=== PATIENT | female | born 1945 | race Caucasian/White ===

== ENCOUNTER 2018-05-11 05:53 | Outpatient (CLI) | payer MEDICARE ==
[~2018-05-11] VITALS: Ht 172.7 cm; Wt 76.7 kg
[~2018-05-11 05:53] MED LIST: ASP81CT PO; SIMVASTATIN
[2018-05-11] MEDS ORDERED: ATOR40TA70 PO (15:05)
[2018-05-11] MEDS ORDERED: VITA100T4 PO (15:17)
[2018-05-11] MEDS ORDERED: CALC600T12 PO (15:17)
[2018-05-11] MEDS ORDERED: BISA-65 PO (15:18)
[2018-05-11] MEDS ORDERED: MULT-1021 PO (15:18)
== END 2018-05-11 15:33 | disposition home or self-care (01) ==
LOC: PREOP 05:53
PROVIDERS: ATTEND Urology
DX: Z01.818 Encounter for other preprocedural examination (principal)

== ENCOUNTER 2018-05-15 06:46 | Day surgery (SDC) | payer MEDICARE ==
[~2018-05-15] VITALS: Ht 172.7 cm; Wt 76.7 kg
[~2018-05-15 06:46] MED LIST changes: +ATOR40TA70 PO; +BISA-65 PO; +CALC600T12 PO; +MULT-1021 PO; +VITA100T4 PO
--- OUTSIDE RECORDS SUMMARY | 2018-05-15 06:49 | XMS REPORT | Continuity of Care Document ---
Author Author [facility] of [facility] Address Unknown Phone Unavailable Allergies Active Description Code Type Severity Reaction Onset Reported/Identified Relationship to Patient Clinical Status Yes sulfADIAZINE Drug N/A Nausea Yes SULFA (SULFONAMIDE ANTIBIOTICS) SULFA (SULFONAMIDE A UNKNOWN Yes Sulfa (Sulfonamide Antibiotics) [id number] Drug Allergy Unknown N/A 2011 Medications There is no data. Problems Date Dx Coded Attending Type Code Diagnosis Diagnosed By 05/13/2014 V04.81 FLU SHOT 11/28/2014 Mj Collier Final 272.4 Other and Unspecified Hyperlipidemia 11/28/2014 Mj Collier Final 305.1 Tobacco Use Disorder 11/28/2014 Mj Collier Final 562.10 Diverticulosis of Colon (Without Mention of Hemorrhage) 11/28/2014 Mj Collier Final 569.0 Anal and Rectal Polyp 11/28/2014 Mj Collier Final V76.51 Screening for Malignant Neoplasms of Colon Procedures Code [place] [address] Colonoscopy, flexible; with biopsy, HERB Aceves 11/28/2014 Results Test Result Range VIT B-12 - 09/07/16 11:40 Vitamin B12 896.00 pg/mL 213.00-816.00 Encounters ACCT No. Visit Date/Time Discharge Status Pt. Type Provider Facility Loc./Unit Complaint [id number] 05/21/2014 16:10:00 05/21/2014 23:59:59 CLS Outpatient [id number] 05/11/2018 05:53:00 05/11/2018 15:33:00 DIS Outpatient TEODORO SILVEIRA MD Via [facility] PREOP STRESS URINARY INCONTINENCE [id number] 05/15/2018 06:46:00 ACT Outpatient TEODORO SILVEIRA MD Via [facility] STRESS URINARY INCONTINENCE [id number] 12/26/2017 12:57:02 ACT Unknown [id number] 09/07/2016 14:13:00 09/07/2016 23:59:00 DIS Outpatient LOZAKRISTIN RAMEY [id number] 11/28/2014 08:37:00 11/28/2014 23:59:00 DIS Outpatient Mj Collier Guarantor/person MONICA MUÑOZ [facility] 01/14/2018 04:32:34 ACT Document Registration
--- NOTE | 2018-05-15 06:57 | Progress Note-Pre Operative ---
Pre-Operative Progress Note H&P Reviewed The H&P was reviewed, patient examined and no changes noted. Date Seen by Provider: May 15, 2018 Time Seen by Provider: 06:57 Date H&P Reviewed: May 15, 2018 Time H&P Reviewed: 06:57 Pre-Operative Diagnosis: CYSTOCELE AND INCONTINENCE WITH ISD TEODORO SILVEIRA MD May 15, 2018 6:57 am
[2018-05-15 07:10] VITALS: BP 135/75
[2018-05-15] MEDS ORDERED: LACTATED RINGERS 1,000 ML IV PRN (07:29)
[2018-05-15] MEDS ORDERED: cefTRIAXone FOR IV USE 1,000 MG in NS (IVPB) 50 ML IV ONE (07:30)
[2018-05-15] MEDS ORDERED: CATHETER FLUSH 10 ML SYR IV PRN (07:45)
[2018-05-15] MEDS ORDERED: FAMOTIDINE 20MG/2ML IV (PEPCID) IV ONE (08:15)
[2018-05-15] MEDS ORDERED: ONDANSETRON 4 MG/2 ML (SDV) Z0FRAN IV ONE (08:15)
[2018-05-15] MEDS ORDERED: ONDANSETRON 4 MG/2 ML (SDV) Z0FRAN ONE (08:25)
[2018-05-15] MEDS ORDERED: SEVOFLURANE (ULTANE) 15 ML INHAL SOLN ONE (08:25)
[2018-05-15] MEDS ORDERED: proPOfol 200 MG/20 ML (DIPRIVAN) VIAL IV ONE (08:25)
[2018-05-15] MEDS ORDERED: LIDOCAINE PF 2% 5 ML (XYLOCAINE) VIAL ONE (08:25)
[2018-05-15] MEDS ORDERED: fentaNYL INJECTION 100 MCG/2 ML AMP ONE (08:26)
== END 2018-05-15 11:40 | disposition home or self-care (01) ==
LOC: SDC 06:46 → EDSTATUS 09:00 → SDC 11:40
PROVIDERS: ATTEND Urology
DX: N81.10 Cystocele, unspecified (principal); R32 Unspecified urinary incontinence; N36.42 Intrinsic sphincter deficiency (ISD); Z53.8 Procedure and treatment not carried out for other reasons
CPT/HCPCS: 87081

== ENCOUNTER 2018-05-29 06:40 | Day surgery (SDC) | payer MEDICARE ==
[~2018-05-29] VITALS: Ht 172.7 cm; Wt 76.7 kg
[2018-05-29] MEDS ORDERED: cefTRIAXone FOR IV USE 1,000 MG in NS (IVPB) 50 ML IV ONE (06:45)
--- OUTSIDE RECORDS SUMMARY | 2018-05-29 06:45 | XMS REPORT | Continuity of Care Document ---
Author Author [facility] of [facility] of [facility] Address Unknown Phone Unavailable Allergies Active Description Code Type Severity Reaction Onset Reported/Identified Relationship to Patient Clinical Status Yes sulfADIAZINE Drug N/A Nausea Yes SULFA (SULFONAMIDE ANTIBIOTICS) SULFA (SULFONAMIDE A UNKNOWN Yes Sulfa (Sulfonamide Antibiotics) [id number] Drug Allergy Unknown N/A 2011 Medications There [...] V76.51 Screening for Malignant Neoplasms of Colon 05/15/2018 TEODORO SILVEIRA MD Ot Z01.818 ENCOUNTER FOR OTHER PREPROCEDURAL EXAMIN 05/15/2018 TEODORO SILVEIRA MD, Ot N36.42 INTRINSIC SPHINCTER DEFICIENCY (ISD) 05/15/2018 TEODORO SILVEIRA MD, Ot N81.10 CYSTOCELE, UNSPECIFIED 05/15/2018 TEODORO SILVEIRA MD, Ot R32 UNSPECIFIED URINARY INCONTINENCE 05/15/2018 TEODORO SILVEIRA MD, Ot Z53.8 PROCEDURE AND TREATMENT NOT CARRIED OUT 05/17/2018 TEODORO SILVEIRA MD, Ot N36.42 INTRINSIC SPHINCTER DEFICIENCY (ISD) 05/17/2018 TEODORO SILVEIRA MD, Ot N81.10 CYSTOCELE, UNSPECIFIED 05/17/2018 TEODORO SILVEIRA MD Ot R32 UNSPECIFIED URINARY INCONTINENCE 05/17/2018 TEODORO SILVEIRA MD, Ot Z53.8 PROCEDURE AND TREATMENT NOT CARRIED OUT 05/17/2018 TEODORO SILVEIRA MD, Ot N36.42 INTRINSIC SPHINCTER DEFICIENCY (ISD) 05/17/2018 TEODORO SILVEIRA MD Ot N81.10 CYSTOCELE, UNSPECIFIED 05/17/2018 TEODORO SILVEIRA MD Ot R32 UNSPECIFIED URINARY INCONTINENCE 05/17/2018 TEODORO SILVEIRA MD Ot Z53.8 PROCEDURE AND TREATMENT NOT CARRIED OUT 05/21/2018 TEODORO SILVEIRA MD, Ot N36.42 INTRINSIC SPHINCTER DEFICIENCY (ISD) 05/21/2018 TEODORO SILVEIRA MD, Ot N81.10 CYSTOCELE, UNSPECIFIED 05/21/2018 TEODROO SILVEIRA MD Ot R32 UNSPECIFIED URINARY INCONTINENCE 05/21/2018 TEODORO SILVEIRA MD, Ot Z53.8 PROCEDURE AND TREATMENT NOT CARRIED OUT Procedures Code Description [place] [address] Colonoscopy, flexible; with biopsy, HERB Aceves 11/28/2014 Results Test Result Range VIT B-12 - 09/07/16 11:40 Vitamin B12 896.00 pg/mL 213.00-816.00 Methicillin resistant Staphylococcus aureus (MRSA) screening culture - 07:04 Methicillin resistant Staphylococcus aureus (MRSA) screening culture NEG NRG Encounters ACCT No. Visit Date/Time Discharge Status Pt. Type Provider Facility Loc./Unit Complaint [id number] 05/21/2014 16:10:00 05/21/2014 23:59:59 CLS Outpatient [id number] 05/15/2018 06:46:00 05/15/2018 11:40:00 DIS Outpatient TEODORO SILVEIRA MD Via [facility] STRESS URINARY INCONTINENCE [id number] 05/11/2018 05:53:00 05/11/2018 15:33:00 DIS Outpatient TEODORO SILVEIRA MD Via [facility] PREOP STRESS URINARY INCONTINENCE [id number] 05/29/2018 06:40:00 ACT Outpatient TEODORO SILVEIRA MD Via [facility] STRESS URINARY INCONTINENCE [id number] 12/26/2017 12:57:02 ACT Unknown [id number] 05/19/2018 08:24:26 05/19/2018 23:59:59 CLS Outpatient [id number] 09/07/2016 14:13:00 09/07/2016 23:59:00 DIS Outpatient KRISTIN LOZA [id number] 11/28/2014 08:37:00 11/28/2014 23:59:00 DIS Outpatient Mj Collier Guarantor/person MONICA MUÑOZ [facility] 01/14/2018 04:32:34 ACT Document Registration
--- NOTE | 2018-05-29 06:58 | Progress Note-Pre Operative ---
Pre-Operative Progress Note H&P Reviewed The H&P was reviewed, patient examined and no changes noted. Date Seen by Provider: May 29, 2018 Time Seen by Provider: 06:57 Date H&P Reviewed: May 29, 2018 Time H&P Reviewed: 06:57 Pre-Operative Diagnosis: cystocele, mixed incontinence, isd, and oab TEODORO SILVEIRA MD May 29, 2018 6:57 am
--- NOTE | 2018-05-29 06:59 | Progress Note-Post Operative ---
Post-Operative Progess Note Surgeon (s)/[employer] (s) Surgeon TEODORO SILVEIRA MD [employer]: NONE Pre-Operative Diagnosis CYSTOCELE, MIXED INCONTINENCE, ISD, AND OAB Post-Operative Diagnosis SAME AND ENTEROCELE Procedure & Operative Findings Date of Procedure 05/29/18 Procedure Performed/Findings ANTERIOR REPAIR, ENTEROCELE REPAIR, PVS, AND CYSTOSCOPY Anesthesia Type GENERAL Estimated Blood Loss Estimated blood loss (mL): NEGLIGIBLE Specimens/Packing Specimens Removed NONE TO PATHOLOGY Packing: ESTRACE VAGINAL PACK TEODORO SILVEIRA MD May 29, 2018 6:59 am
[2018-05-29 07:00] VITALS: BP 147/76
[2018-05-29] MEDS ORDERED: DEXAMETHASONE 10 MG/ML (DECADRON) 1 ML VIAL ONE (07:00)
[2018-05-29] MEDS ORDERED: ONDANSETRON 4 MG/2 ML (SDV) Z0FRAN ONE (07:00)
[2018-05-29] MEDS ORDERED: LIDOCAINE PF 2% 5 ML (XYLOCAINE) VIAL ONE (07:00)
[2018-05-29] MEDS ORDERED: fentaNYL INJECTION 100 MCG/2 ML AMP ONE (07:00)
[2018-05-29] MEDS ORDERED: HYDROcodone/APAP 10 MG/325 MG (LORTAB) TAB PO PRN (07:00)
[2018-05-29] MEDS ORDERED: BISACODYL 5 MG (DULCOLAX) TABLET PO PRN (07:00)
[2018-05-29] MEDS ORDERED: SEVOFLURANE (ULTANE) 15 ML INHAL SOLN ONE (07:00)
[2018-05-29] MEDS ORDERED: proPOfol 200 MG/20 ML (DIPRIVAN) VIAL IV ONE ×2 (07:00→07:57)
[2018-05-29] MEDS: LACTATED RINGERS 1,000 ML IV PRN ×2 (07:05→08:15)
[2018-05-29] MEDS ORDERED: ESTRADIOL VAGINAL CREAM 42.5 GM (ESTRACE) VG ONE (07:11)
[2018-05-29] MEDS ORDERED: LIDOCAINE/EPI 1%-1:200,000 (XYLOCAINE) 10 ML VIAL ONE ×2 (07:13)
[2018-05-29] MEDS ORDERED: morphine INJ 10 MG/ML 1ML (SYR OR VIAL) ONE (08:55)
[2018-05-29] MEDS ORDERED: [UNRECOGNIZED DRUG - REMARK] PO SCH (09:00)
[2018-05-29] MEDS ORDERED: ONDANSETRON 4 MG/2 ML (SDV) Z0FRAN IVP PRN (09:00)
[2018-05-29] MEDS ORDERED: CALCIUM CARBONATE 600 MG (CALCARB) TAB PO SCH (09:00)
[2018-05-29] MEDS ORDERED: morphine INJ 10 MG/ML 1ML (SYR OR VIAL) IVP ONE (09:00)
[2018-05-29] MEDS: KETOROLAC 30 MG/ML VIAL IV PRN ×3 (09:00→21:33)
[2018-05-29 09:50] VITALS: BP 134/76
[2018-05-29] MEDS: LACTATED RINGERS 1,000 ML IV SCH ×2 (11:43→22:58)
[2018-05-29 12:45] VITALS: BP 113/65
--- NOTE | 2018-05-29 13:09 | OPERATIVE REPORT ---
DATE OF SERVICE: 05/29/2018 PREOPERATIVE DIAGNOSES: Cystocele, mixed incontinence with intrinsic sphincter deficiency and overactive bladder. POSTOPERATIVE DIAGNOSES: Cystocele, mixed incontinence with intrinsic sphincter deficiency and overactive bladder, and enterocele. OPERATIONS PERFORMED: Anterior repair, enterocele repair, pubovaginal sling and cystoscopy. SURGEON: Adolfo Silveira MD. ANESTHESIA: General. COMPLICATIONS: None. DESCRIPTION OF PROCEDURE: Under satisfactory general anesthesia, the patient in extended lithotomy position, genitalia were prepped and draped in the usual sterile fashion with a separate vaginal prep. Lane catheter was inserted and the bladder was emptied. The anterior vaginal wall was infiltrated with lidocaine and epinephrine. A midline incision was made 1 cm proximal to the urethra, carried all the way down to the redundant tissue. The vaginal mucosa was sharply excised to expose the underlying fascia. There was an enterocele was also found. There was a lot of redundancy of the vaginal mucosa. I went ahead and repaired the enterocele defect, then approximated the periurethral fascia with interrupted 2-0 Vicryl as well. There was very good support of the bladder. Then, I passed a pubovaginal sling using the Solyx device on both sides using the described technique. This sling was sitting nicely under the mid urethra with no tension, twisting with passage of the curved hemostat easily between it and the underlying tissue. I removed the Lane catheter to perform cystoscopy to confirm the integrity of the bladder, ureteral orifices, urethra and a sling present under the mid urethra. I left the bladder half full to perform a manual Valsalva maneuver that was negative. I reinserted a Lane catheter draining clear fluid. The excess vaginal mucosa was sharply excised as much as possible safely. The mucosa was then approximated with a running repeat type 2-0 Vicryl suture. Needle, sponge and instrument counts were correct x2. Estimated blood loss was negligible. Estrace vaginal pack was inserted. The patient tolerated the procedure and anesthesia well and was sent to recovery room in stable condition. Job ID: [id number] DocumentID: [id number] Dictated Date: 05/29/2018 08:53:41 Human Resources Safety Manager Date: 05/29/2018 13:08:08 Dictated By: ADOLFO SILVEIRA MD
[2018-05-29 16:00] VITALS: BP 112/62
[2018-05-29 21:00] VITALS: BP 111/61
[2018-05-29] MEDS ORDERED: ATORVASTATIN 40 MG (LIPITOR) TABLET PO SCH (21:00)
[2018-05-30 01:40] VITALS: BP 126/74
[2018-05-30 05:30] VITALS: BP 112/68
[2018-05-30] MEDS ORDERED: LEVOFLOXACIN 250 MG/50 ML IVPB 50 ML IV SCH (06:59)
[2018-05-30] MEDS ORDERED: MULTIVIT W/MINERALS TAB (THERAGRAN M) PO SCH (07:00)
[2018-05-30 10:00] VITALS: BP 117/59
--- NOTE | 2018-05-30 10:15 | Anesthesia-General Post-Op ---
General Patient Condition Mental Status/LOC: Same as Preop Cardiovascular: Satisfactory Nausea/Vomiting: Absent Respiratory: Satisfactory Pain: Controlled Complications: Absent Post Op Complications Complications None Follow Up Care/Instructions Patient Instructions None needed. Anesthesia/Patient Condition Patient Condition Patient is doing well, no complaints, stable vital signs, no apparent adverse anesthesia problems. No complications reported per nursing. VINCENT KEMP CRNA May 30, 2018 10:15
--- NOTE | 2018-05-30 11:14 | Progress Note-Urology ---
Progress Note-Urology Progress Notes/Assess & Plan Progress/Assessment & Plan RECOVERED WELL. NO COMPLAINTS. VSS. NO FEVER. VOIDED WELL. PVR 20CC. DRY NO LEAKAGE NO BLEEDING Final Diagnosis CYSTOCELE, ENTEROCELE, AND INCONTINENCE TEODORO SILVEIRA MD May 30, 2018 11:14 am
--- NOTE | 2018-05-30 11:17 | Discharge Inst-Urology ---
Discharge Inst-Urology Discharge Medications New, Converted, or Re-newed RX: Call to Patient Pharmacy Patient Instructions/Follow Up Plan Please make appointment to been seen in office in 2 weeks. REST till then. Showers no bath. Keep bowels soft and moving Tylenol or IBP PRN pain Increase oral fluids for 48 hours and then as needed. Diet as tolerated. If questions or concerns contact your physician Or seek help at emergency department. TEODORO SILVEIRA MD May 30, 2018 11:17 am
== END 2018-05-30 12:00 | disposition home or self-care (01) ==
LOC: SDC 06:40 → EDSTATUS 08:00 → WS 09:50 → SDC 05-30 12:00
PROVIDERS: ATTEND Urology
DX: N81.10 Cystocele, unspecified (principal); N81.5 Vaginal enterocele; N36.42 Intrinsic sphincter deficiency (ISD); N39.46 Mixed incontinence; N32.81 Overactive bladder; F41.9 Anxiety disorder, unspecified; F17.210 Nicotine dependence, cigarettes, uncomplicated; Z79.899 Other long term (current) drug therapy
CPT/HCPCS: 94664

== ENCOUNTER → 2018-08-25 | Outpatient (CLI) | payer MEDICARE | LOC: RAD 07:25 | PROVIDERS: ATTEND Family Medicine | DX: Z12.31 Encounter for screening mammogram for malignant neoplasm of breast (principal) | CPT/HCPCS: 77067 ==

== ENCOUNTER 2018-08-29 16:22 | Emergency (ER) | payer MEDICARE ==
[~2018-08-29] VITALS: Ht 172.7 cm; Wt 72.6 kg
--- OUTSIDE RECORDS SUMMARY | 2018-08-29 16:32 | XMS REPORT | Continuity of Care Document ---
Author Author [facility] Address Unknown Phone Unavailable Allergies Active Description Code Type Severity Reaction Onset Reported/Identified Relationship to Patient Clinical Status Yes sulfADIAZINE Drug N/A Nausea Yes SULFA (SULFONAMIDE ANTIBIOTICS) SULFA (SULFONAMIDE A UNKNOWN Yes Sulfa (Sulfonamide Antibiotics) [id number] Drug Allergy Unknown N/A 2011 Medications There [...] V76.51 Screening for Malignant Neoplasms of Colon 05/11/2018 TEODORO SILVEIRA MD Ot Z01.818 ENCOUNTER FOR OTHER PREPROCEDURAL EXAMIN 05/15/2018 TEODORO SILVEIRA MD, Ot Z01.818 ENCOUNTER FOR OTHER PREPROCEDURAL EXAMIN [...] Ot N81.10 CYSTOCELE, UNSPECIFIED 05/17/2018 TEODORO SILVEIRA MD, Ot R32 UNSPECIFIED URINARY INCONTINENCE 05/17/2018 TEODORO SILVEIRA MD Ot Z53.8 PROCEDURE AND TREATMENT NOT CARRIED OUT 05/17/2018 TEODORO SILVEIRA MD Ot N36.42 INTRINSIC SPHINCTER DEFICIENCY (ISD) 05/17/2018 TEODORO SILVEIRA MD Ot N81.10 CYSTOCELE, UNSPECIFIED 05/17/2018 TEODORO SILVEIRA MD Ot R32 UNSPECIFIED URINARY INCONTINENCE 05/17/2018 TEODORO SILVEIRA MD, Ot Z53.8 PROCEDURE AND TREATMENT NOT CARRIED OUT 05/21/2018 TEODORO SILVEIRA MD, Ot N36.42 INTRINSIC SPHINCTER DEFICIENCY (ISD) 05/21/2018 TEODORO SILVEIRA MD, Ot N81.10 CYSTOCELE, UNSPECIFIED 05/21/2018 TEODORO SILVEIRA MD, Ot R32 UNSPECIFIED URINARY INCONTINENCE 05/21/2018 TEODORO SILVEIRA MD, Ot Z53.8 PROCEDURE AND TREATMENT NOT CARRIED OUT 05/30/2018 TEODORO SILVEIRA MD Ot F17.210 NICOTINE DEPENDENCE, CIGARETTES, UNCOMPL 05/30/2018 TEODORO SILVEIRA MD Ot F41.9 ANXIETY DISORDER, UNSPECIFIED 05/30/2018 TEODORO SILVEIRA MD Ot N32.81 OVERACTIVE BLADDER 05/30/2018 TEODORO SILVEIRA MD, Ot N36.42 INTRINSIC SPHINCTER DEFICIENCY (ISD) 05/30/2018 TEODORO SILVEIRA MD, Ot N39.46 MIXED INCONTINENCE 05/30/2018 TEODORO SILVEIRA MD Ot N81.10 CYSTOCELE, UNSPECIFIED 05/30/2018 TEODORO SILVEIRA MD Ot N81.5 VAGINAL ENTEROCELE 05/30/2018 TEODORO SILVEIRA MD, Ot Z79.899 OTHER SUPERVISOR FILTRATION (CURRENT) DRUG THERAPY 07/04/2018 WILMER ROY MD, Ot Z12.31 ENCNTR SCREEN MAMMOGRAM FOR MALIGNANT NE 08/25/2018 WILMER ROY MD Ot Z12.31 ENCNTR SCREEN MAMMOGRAM FOR MALIGNANT NE 08/27/2018 WILMER ROY MD, Ot Z12.31 ENCNTR SCREEN MAMMOGRAM FOR MALIGNANT NE Procedures Code Description [place] [address] Colonoscopy, flexible; with biopsy, HERB Aceves 11/28/2014 Results Test Result Range VIT B-12 - 09/07/16 11:40 Vitamin B12 896.00 pg/mL 213.00-816.00 Methicillin resistant Staphylococcus aureus (MRSA) screening culture - 07:04 Methicillin resistant Staphylococcus aureus (MRSA) screening culture NEG NRG Encounters ACCT No. Visit Date/Time Discharge Status Pt. Type Provider Facility Loc./Unit Complaint [id number] 05/21/2014 16:10:00 05/21/2014 23:59:59 CLS Outpatient [id number] 08/25/2018 07:25:00 08/25/2018 23:59:59 CLS Outpatient WILMER ROY MD Via [facility] RAD SCREENING [id number] 05/29/2018 06:40:00 05/30/2018 12:00:00 DIS Outpatient TEODORO SILVEIRA MD Via [facility] STRESS URINARY INCONTINENCE [id number] 05/15/2018 06:46:00 05/15/2018 11:40:00 DIS Outpatient TEODORO SILVEIRA MD Via [facility] STRESS URINARY INCONTINENCE [id number] 05/11/2018 05:53:00 05/11/2018 15:33:00 DIS Outpatient TEODORO SILVEIRA MD Via [facility] PREOP STRESS URINARY INCONTINENCE [id number] 08/29/2018 16:23:00 ACT Emergency OCTAVIA ADAME, PRACHI Miner Via [facility] ER BACK PAIN [id number] 12/26/2017 12:57:02 ACT Unknown [id number] 05/19/2018 08:24:26 05/19/2018 23:59:59 CLS Outpatient [id number] 09/07/2016 14:13:00 09/07/2016 23:59:00 DIS Outpatient KRISTIN LOZA [id number] 11/28/2014 08:37:00 11/28/2014 23:59:00 DIS Outpatient Mj Collier Guarantor/person ENC COLON [facility] 01/14/2018 04:32:34 ACT Document Registration
--- OUTSIDE RECORDS SUMMARY | 2018-08-29 16:32 | XMS REPORT | CCD ---
Author Author Amy Shelley Organization Amy Shelley MD, [facility] Address [address] [place] [address] Phone Care Team Providers Care Line Camera Operator Name Role Phone PP Unavailable CCM Unavailable Summary Purpose Interface Exchange Insurance Providers Payer name Policy type / Coverage type Covered libertarian ID Effective Begin Date Effective End Date WPS Medicare Part B Medicare Part B [id number] Unknown Family history Sister Diagnosis Age At Onset Cancer Unknown Mother Diagnosis Age At Onset Myocardial infarction Unknown Father Diagnosis Age At Onset Stroke Unknown Brother Diagnosis Age At Onset Alcoholism Unknown Social History Social History Element Codes Description Effective Dates Marital status Unknown 07/03/2018 Number of children Unknown 2 Evelyn - lives in [place], nicki is in the [employer] - currently lives in [facility] 07/03/2018 Employment Unknown Retired 07/03/[address]: 27083258 Current every day smoker 07/03/2018 Number of cigarettes/day Unknown 10 ( Half a pack) 07/03/[address]: 136011259 Never drinks alcohol 07/03/2018 Allergies, Adverse Reactions, Alerts Substance Reaction Codes Entered Date Inactivated Date Status NO KNOWN DRUG ALLERGIES Unknown 07/03/2018 No Inactive Date Active Past Medical History Illness Codes Condition Status Onset Date Resolved Date Low back pain ICD-9: 724.2 ICD-10: M54.5 Active 08/17/2018 Unknown Sacrococcygeal disorders, not elsewhere classified ICD-9: 724.6 ICD-10: M53.3 Active 08/17/2018 Unknown Mixed hyperlipidemia ICD-9: 272.2 ICD-10: E78.2 Active 07/03/2018 Unknown Tobacco use ICD-9: 305.1 ICD-10: Z72.0 Active 07/03/2018 Unknown Problems Condition Codes Effective Dates Condition Status Low back pain ICD-9: 724.2 ICD-10: M54.5 08/17/2018 Active Sacrococcygeal disorders, not elsewhere classified ICD-9: 724.6 ICD-10: M53.3 08/17/2018 Active Mixed hyperlipidemia ICD-9: 272.2 ICD-10: E78.2 07/03/2018 Active Tobacco use ICD-9: 305.1 ICD-10: Z72.0 07/03/2018 Active Medications Medication Codes Instructions Start Date Stop Date Status Fill Instructions Kenalog 40 mg/mL suspension for injection RxNorm: 8995364 1 Milliliter(s) Inj 08/17/2018 08/17/2018 Inactive atorvastatin 40 mg tablet RxNorm: 403096 1 Tablet(s) PO daily No Start Date Active Tylenol PM oral RxNorm : 668460 oral No Start Date Active Centrum oral RxNorm: oral No Start Date Active Calcium 600 oral RxNorm: 702148 oral No Start Date Active Vitamin B-12 500 mcg tablet RxNorm: 413377 1 Tablet(s) PO daily No Start Date Active Medication Administered Medication Codes Instructions Start Date Status Kenalog 40 mg/mL suspension for injection RxNorm: 5596600 1Milliliter 08/17/2018 Active Immunizations Vaccine Codes Date Status Influenza CVX: 141 03/25/2018 completed Assessments Condition Codes Effective Dates Sacrococcygeal disorders, not elsewhere classified ICD-10: M53.3 ICD-9: 724.6 08/17/2018 Low back pain ICD-10: M54.5 ICD-9: 724.2 08/17/2018 Mixed hyperlipidemia ICD-10: E78.2 ICD-9: 272.2 07/03/2018 Tobacco use ICD-10: Z72.0 ICD-9: 305.1 07/03/2018 Reason For Visit Reason For Visit Effective Dates Notes back pain 08/17/2018 hyperlipidemia 07/03/2018 Results No Results data Review of Systems System Result Effective Dates Constitutional No recent illness 2018 Constitutional No chills 08/17/2018 Constitutional No fever 08/17/2018 Eyes No eye erythema 08/17/2018 Ears/Nose/Throat/Neck No nasal discharge 08/17/2018 Cardiovascular No chest pain/pressure Cardiovascular No dyspnea 08/17/2018 Respiratory No cough 08/17/2018 Respiratory No dyspnea 08/17/2018 Musculoskeletal joint complaint 2018 Neurologic No alteration of consciousness 08/17/2018 Neurologic No mental status change 2018 Constitutional recent illness 07/03/2018 Constitutional No chills 07/03/2018 Constitutional No fatigue 07/03/2018 Constitutional No fever 07/03/2018 Constitutional No insomnia 07/03/2018 Constitutional No malaise 07/03/2018 Eyes No vision change 07/03/2018 Ears/Nose/Throat/Neck No dizziness 2017 Ears/Nose/Throat/Neck No dysphagia 2017 Ears/Nose/Throat/Neck No headache 2017 Ears/Nose/Throat/Neck No hearing loss 04/2018 Ears/Nose/Throat/Neck No nasal allergies 07/03/2018 Ears/Nose/Throat/Neck No sinus congestion 07/03/2018 Cardiovascular No chest pain/pressure 04/2018 Cardiovascular No dyspnea 07/03/2018 Cardiovascular No edema 07/03/2018 Cardiovascular No exercise intolerance Cardiovascular No fatigue 07/03/2018 Cardiovascular No near-syncope/dizziness 07/03/2018 Respiratory No chest tightness 2017 Respiratory No cough 07/03/2018 Respiratory No dyspnea 07/03/2018 Respiratory No pedal edema 07/03/2018 Gastrointestinal No abdominal pain 2017 Gastrointestinal No constipation 2017 Gastrointestinal No diarrhea 07/03/2018 Gastrointestinal No gastroesophageal reflux 07/03/2018 Gastrointestinal No nausea 07/03/2018 Gastrointestinal No vomiting 07/03/2018 Genitourinary/Nephrology No dysuria 07/03 Genitourinary/Nephrology No nocturia 04/2018 Genitourinary/Nephrology No urinary incontinence 07/03/2018 Musculoskeletal No stiffness 07/03/2018 Musculoskeletal No swelling 07/03/2018 Musculoskeletal No muscle weakness 2017 Musculoskeletal No myalgias 07/03/2018 Dermatologic No rash 07/03/2018 Dermatologic No sores 07/03/2018 Neurologic No dizziness 07/03/2018 Neurologic No headache 07/03/2018 Neurologic No neck pain 07/03/2018 Neurologic No syncope 07/03/2018 Psychiatric No anxiety 07/03/2018 Psychiatric No depression 07/03/2018 Physical Exam Exam Name System Name Item Name Status Result Effective Dates Notes Full Exam - Orthopedics Constitutional general appearance Overall: well nourished 08/17/2018 None Full Exam - Orthopedics Constitutional general appearance Overall: well developed 08/17/2018 None Full Exam - Orthopedics Constitutional general appearance Overall: in no acute distress 08/17/2018 None Full Exam - Orthopedics Eyes conjunctiva/ eyelids Overall: conjunctiva clear 08/17/2018 None Full Exam - Orthopedics Eyes conjunctiva/ eyelids Overall: eyelids normal 08/17/2018 None Full Exam - Orthopedics Ears/Nose/Throat lips/teeth/gingiva Overall: benign lips 08/17/2018 None Full Exam - Orthopedics Ears/Nose/Throat oral cavity/pharynx/larynx Overall: oral mucosa clear 08/17/2018 None Full Exam - Orthopedics Respiratory respiratory effort/rhythm Overall: no retractions 08/17/2018 None Full Exam - Orthopedics Respiratory respiratory effort/rhythm Overall: normal rate 08/17/2018 None Full Exam - Orthopedics Psychiatric orientation/consciousness Overall: oriented to person, place and time 08/17/2018 None Full Exam - Orthopedics Psychiatric mood and affect Overall: normal mood and affect 08/17/2018 None Full Exam - Orthopedics Psychiatric appearance Overall: well-groomed, good eye contact 08/17/2018 None Full Exam - Orthopedics MS: spine/rib/pelvis insp & palp - S/R/P Sacroiliac palpation: right sacroiliac joint tenderness 08/17/2018 None Full Exam - General 1994 Constitutional general appearance Development: well developed 07/03/2018 None Full Exam - General 1994 Constitutional general appearance Development: appears stated age 1207/03/2018 None Full Exam - General 1994 Constitutional general appearance Hygiene/Attention to Grooming: good hygiene 07/03/2018 None Full Exam - General 1994 Eyes conjunctiva /eyelids Overall: conjunctiva clear 07/03/2018 None Full Exam - General 1994 Eyes conjunctiva /eyelids Overall: cornea clear 07/03/2018 None Full Exam - General 1994 Eyes conjunctiva /eyelids Overall: eyelids normal 07/03/2018 None Full Exam - General 1994 Eyes pupils and irises Overall: pupils equal, round, reactive to light and accomodation 07/03/2018 None Full Exam - General 1994 Ears/Nose/Throat otoscopic exam Overall: external auditory canals clear 07/03/2018 None Full Exam - General 1994 Ears/Nose/Throat otoscopic exam Overall: tympanic membranes clear 07/03/2018 None Full Exam - General 1994 Ears/Nose/Throat lips/teeth/gingiva Overall: benign lips 07/03/2018 None Full Exam - General 1994 Ears/Nose/Throat lips/teeth/gingiva Overall: normal dentition 07/03/2018 None Full Exam - General 1994 Ears/Nose/Throat oral cavity/pharynx/larynx Overall: oral mucosa clear 07/03/2018 None Full Exam - General 1994 Ears/Nose/Throat oral cavity/pharynx/larynx Overall: oropharyngeal mucosa clear 07/03/2018 None Full Exam - General 1994 Ears/Nose/Throat oral cavity/pharynx/larynx Overall: hypopharynx benign 07/03/2018 None Full Exam - General 1994 Ears/Nose/Throat oral cavity/pharynx/larynx Overall: no masses 07/03/2018 None Full Exam - General 1994 Respiratory auscultation Overall: breath sounds clear bilaterally 07/03/2018 None Full Exam - General 1994 Respiratory respiratory effort/rhythm Overall: no retractions 07/03/2018 None Full Exam - General 1994 Respiratory respiratory effort/rhythm Overall: normal rate 07/03/2018 None Full Exam - General 1994 Cardiovascular extremities Overall: no clubbing 07/03/2018 None Full Exam - General 1994 Cardiovascular auscultation of heart Overall: regular rate 07/03/2018 None Full Exam - General 1994 Cardiovascular auscultation of heart Overall: normal heart sounds 07/03/2018 None Full Exam - General 1994 Abdomen abdominal exam Overall: no tenderness 07/03/2018 None Full Exam - General 1994 Abdomen abdominal exam Overall: normal bowel sounds 07/03/2018 None Full Exam - General 1994 Lymphatic neck nodes Overall: anterior cervical chain benign 07/03/2018 None Full Exam - General 1994 Lymphatic neck nodes Overall: posterior cervical chain benign 07/03/2018 None Full Exam - General 1994 Musculoskeletal spine, ribs and pelvis Overall: spine benign 07/03/2018 None Full Exam - General 1994 Musculoskeletal spine, ribs and pelvis Overall: sacroiliac joint benign 07/03/2018 None Full Exam - General 1994 Musculoskeletal spine, ribs and pelvis Overall: good posture 07/03/2018 None Full Exam - General 1994 Musculoskeletal head and neck Overall: head atraumatic 07/03/2018 None Full Exam - General 1994 Musculoskeletal head and neck Overall: cervical spine benign 07/03/2018 None Full Exam - General 1994 Integument inspection of skin Overall: few scattered moles, no gross abnormalities 07/03/2018 None Full Exam - General 1994 Neurologic cranial nerves Overall: crainial nerves 2 - 12 grossly intact 07/03/2018 None Full Exam - General 1994 Psychiatric orientation/consciousness Overall: oriented to person, place and time 07/03/2018 None Full Exam - General 1994 Psychiatric mood and affect Overall: normal mood and affect 07/03/2018 None Procedures Procedure Codes Date DRAIN/INJECT JOINT/BURSA CPT-4: 04268 08/17/2018 TRIAMCINOLONE ACET INJ NOS CPT-4: J3301 08/17/2018 Vital Signs Date Vital 08/17/2018 Blood Pressure 1: 146/78 Code : 8480-6 BMI: 24.3 Code : 13144-0 Height: 5'8" Weight: 160 lbs 07/03/2018 Blood Pressure 1: 122/78 Code : 8480-6 BMI: 24.3 Code : 83752-2 Heart Rate 1 : 90 bpm Height: 5'8" SpO2: 98% Weight: 160 lbs Functional Status No Functional Status data History of Present Illness Symptom Name Status Result Effective Date Notes Location in the right lower back area 08/17/2018 None Quality aching 2018 None Quality sharp 2018 None Onset and Resolution sudden in onset 08/17/2018 None Onset of Symptom 1 months ago 08/17/2018 None Frequency of Episodes daily 08/17/2018 None Radiating down the right leg 08/17/2018 None Onset and Resolution gradual in onset 07/03/2018 None Onset of Symptom during adulthood 07/03/2018 None Significant Medications statin 07/03/2018 None Alleviating Factors medication 07/03/2018 None Exacerbating Factors diet 07/03/2018 None Advance Directives No Advance Directive data Encounters Encounter Performer Location Codes Date () OFFICE VISIT, NEW - LEVEL 3 Diagnosis: Mixed hyperlipidemia[ICD10: E78.2] Diagnosis: Tobacco use[ICD10: Z72.0] Amy Shelley MD, [facility] CPT-4: 19859 07/03/2018 Plan of Care Planned Activity Notes Codes Status Date Visit Plan: Low back pain- the patient was instructed in appropriate posture. The pt is to use prn antiinflammatories to manage acute pain. The patient is to call the office if the pain is worsening or does not improve. Joint Injection - Pt was given post - injection instructions. The pt has been advised to use anti-inflammatories post injection today, ice to the injected site, call if redness, warmth, or increased pain occurs at the site of injection. 08/17/2018 Patient Education: Patient Medication Summary Completed 08/17/2018 Patient Education: Back Pain Completed 08/17/2018 Visit Plan: Hyperlipidemia - pt has been counseled about appropriate diet, exercise, and need for low fat food choices. I have discussed the need for the patient to take medications as prescribed. If the patient has negative side effects from the medication, they are to CALL the office and not abruptly discontinue the medication without discussion with a practitioner in the office. We will check labs in 3-6 months for follow up on the patient's chronic medical problem and to assure normal liver response to medications. Pt reports last mammogram was 08/2017 - no malignancy Tobaccoism - recommended patient to cut back on smoking. 07/03/2018 Appointment: Amy Shelley WPtel: [address] [place], [place] [id number] New Patient 07/03/2018 Patient Education: Patient Medication Summary Completed 07/03/2018 Patient Education: Cholesterol Management Completed 07/03/2018 Patient Education: Smoking and Tobacco Addiction Completed 07/03/2018 Care Plan: Comp Metabolic Pending 07/03/2018 Care Plan: Cbc With Differential Pending 07/03/2018 Care Plan: Lipid Pending 07/03/2018 Care Plan: Tsh Pending 07/03/2018 Instructions Comment . Low back pain- the patient was instructed in appropriate posture. The pt is to use prn antiinflammatories to manage acute pain. The patient is to call the office if the pain is worsening or does not improve. Joint Injection - Pt was given post - injection instructions. The pt has been advised to use anti-inflammatories post injection today, ice to the injected site, call if redness, warmth, or increased pain occurs at the site of injection. . Hyperlipidemia - pt has been counseled about appropriate diet, exercise, and need for low fat food choices. I have discussed the need for the patient to take medications as prescribed. If the patient has negative side effects from the medication, they are to CALL the office and not abruptly discontinue the medication without discussion with a practitioner in the office. We will check labs in 3-6 months for follow up on the patient's chronic medical problem and to assure normal liver response to medications. Pt reports last mammogram was 08/2017 - no malignancy Tobaccoism - recommended patient to cut back on smoking.
--- OUTSIDE RECORDS SUMMARY | 2018-08-29 16:32 | XMS REPORT | CCD ---
Author Author Amy Shelley Organization Amy Shelley MD, [facility] Address [address] [place] [address] Phone Care Team Providers Care Shipping Support Name Role Phone PP Unavailable CCM Unavailable Summary Purpose Interface Exchange Insurance Providers Payer name Policy type / Coverage type Covered democrat ID Effective Begin Date Effective End Date WPS Medicare Part B Medicare Part B [id number] Unknown Family history Sister Diagnosis Age At Onset Cancer Unknown Mother Diagnosis Age At Onset Myocardial infarction Unknown Father Diagnosis Age At Onset Stroke Unknown Brother Diagnosis Age At Onset Alcoholism Unknown Social History Social History Element Codes Description Effective Dates Marital status Unknown 07/03/2018 Number of children Unknown 2 Evelyn - lives in [place], nicki is in the [employer] - currently lives in [facility] 07/03/2018 Employment Unknown Retired 07/03/[address]: 84860830 Current every day smoker 07/03/2018 Number of cigarettes/day Unknown 10 ( Half a pack) 07/03/[address]: 260575468 Never drinks alcohol 07/03/2018 Allergies, Adverse Reactions, [...] Kenalog 40 mg/mL suspension for injection RxNorm: 2982723 1 Milliliter(s) Inj 08/17/2018 08/17/2018 Inactive atorvastatin 40 mg tablet RxNorm: 587798 1 Tablet(s) PO daily No Start Date Active Tylenol PM oral RxNorm : 365219 oral No Start Date Active Centrum oral RxNorm: oral No Start Date Active Calcium 600 oral RxNorm: 943653 oral No Start Date Active Vitamin B-12 500 mcg tablet RxNorm: 263507 1 Tablet(s) PO daily No Start Date Active Medication Administered Medication Codes Instructions Start Date Status Kenalog 40 mg/mL suspension for injection RxNorm: 0376038 1Milliliter 08/17/2018 No longer Active Immunizations Vaccine Codes Date Status Influenza [...] Procedures Procedure Codes Date DRAIN/INJECT JOINT/BURSA CPT-4: 40599 08/17/2018 TRIAMCINOLONE ACET INJ NOS CPT-4: J3301 08/17/2018 Vital Signs Date Vital 08/17/2018 Blood Pressure 1: 146/78 Code : 8480-6 BMI: 24.3 Code : 00348-0 Height: 5'8" Weight: 160 lbs 07/03/2018 Blood Pressure 1: 122/78 Code : 8480-6 BMI: 24.3 Code : 65454-6 Heart Rate 1 : 90 bpm Height: [...] Encounters Encounter Performer Location Codes Date () 77[address] EST. PATIENT, LEVEL III Diagnosis: Low back pain[ICD10: M54.5] [facility] CPT-4 : 53743 08/17/2018 ([id number]) OFFICE VISIT, NEW - LEVEL 3 Diagnosis: Mixed hyperlipidemia[ICD10: E78.2] Diagnosis: Tobacco use[ICD10: Z72.0] [facility] CPT-4: 59290 07/03/2018 Plan of Care Planned Activity Notes [...] occurs at the site of injection. 08/17/2018 Visit Plan: Low back pain- the patient [...] occurs at the site of injection. 08/17/2018 Appointment: [facility] [phone] [id number] (15 min) Moderate 08/17/2018 Patient Education: Patient Medication Summary Completed [...] on smoking. 07/03/2018 App[facility]ment: [facility] [phone] [id number] [facility] 07/03/2018 Patient Education: Patient Medication [...] occurs at the site of injection. . Low back pain- the patient was [...]
--- OUTSIDE RECORDS SUMMARY | 2018-08-29 16:32 | XMS REPORT | CCD ---
Author Author Amy Shelley Organization Amy Shelley MD, [facility] Address [address] [place] [address] Phone Care Team Providers Care Radiology Asst Name Role Phone PP Unavailable CCM Unavailable Summary Purpose Interface Exchange Insurance Providers Payer name Policy type / Coverage type Covered democrat ID Effective Begin Date Effective End Date [employer] CLAIMS Commercial Insurance [id number] Unknown Family history Sister Diagnosis Age At Onset Cancer Unknown Mother Diagnosis Age At Onset Myocardial infarction Unknown Father Diagnosis Age At Onset Stroke Unknown Brother Diagnosis Age At Onset Alcoholism Unknown Social History Social History Element Codes Description Effective Dates Marital status Unknown 07/03/2018 Number of children Unknown 2 Evelyn - lives in [place], nicki is in the [employer] - currently lives in [facility] 07/03/2018 Employment Unknown Retired 07/03/[address]: 01373736 Current every day smoker 07/03/2018 Number of cigarettes/day Unknown 10 ( Half a pack) 07/03/[address]: 320678787 Never drinks alcohol 07/03/2018 Allergies, Adverse Reactions, Alerts Substance Reaction Codes Entered Date Inactivated Date Status NO KNOWN DRUG ALLERGIES Unknown 07/03/2018 No Inactive Date Active Past Medical History Illness Codes Condition Status Onset Date Resolved Date Mixed hyperlipidemia ICD-9: 272.2 ICD-10: E78.2 Active 07/03/2018 Unknown Tobacco use ICD-9: 305.1 ICD-10: Z72.0 Active 07/03/2018 Unknown Problems Condition Codes Effective Dates Condition Status Mixed hyperlipidemia ICD-9: 272.2 ICD-10: E78.2 07/03/2018 Active Tobacco use ICD-9: 305.1 ICD-10: Z72.0 07/03/2018 Active Medications Medication Codes Instructions Start Date Stop Date Status Fill Instructions atorvastatin 40 mg tablet RxNorm: 011895 1 Tablet(s) PO daily No Start Date Active Tylenol PM oral RxNorm : 456837 oral No Start Date Active Centrum oral RxNorm: oral No Start Date Active Calcium 600 oral RxNorm: 064497 oral No Start Date Active Vitamin B-12 500 mcg tablet RxNorm: 015040 1 Tablet(s) PO daily No Start Date Active Medication Administered No Medication Administered data Immunizations Vaccine Codes Date Status Influenza CVX: 141 03/25/2018 completed Assessments Condition Codes Effective Dates Mixed hyperlipidemia ICD-10: E78.2 ICD-9: 272.2 07/03/2018 Tobacco use ICD-10: Z72.0 ICD-9: 305.1 07/03/2018 Reason For Visit Reason For Visit Effective Dates Notes hyperlipidemia 07/03/2018 Results No Results data Review of Systems System Result Effective Dates Constitutional recent illness 07/03/2018 Constitutional No chills [...] Result Effective Dates Notes Full Exam - General 1994 Constitutional general [...] normal mood and affect 07/03/2018 None Procedures No Procedures data Vital Signs Date Vital 07/03/2018 Blood Pressure 1: 122/78 Code : 8480-6 BMI: 24.3 Code : 13760-9 Heart Rate 1 : 90 bpm Height: 5'8" SpO2: 98% Weight: 160 lbs Functional Status No Functional Status data History of Present Illness Symptom Name Status Result Effective Date Notes Onset and Resolution gradual in onset 07/03/2018 None Onset of Symptom during adulthood 07/03/2018 None Significant Medications statin 07/03/2018 None Alleviating Factors medication 07/03/2018 None Exacerbating Factors diet 07/03/2018 None Advance Directives No Advance Directive data Encounters Encounter Performer Location Codes Date () OFFICE VISIT, NEW - LEVEL 3 Diagnosis: Mixed hyperlipidemia[ICD10: E78.2] Diagnosis: Tobacco use[ICD10: Z72.0] [facility] CPT-4: 95819 07/03/2018 Plan of Care Planned Activity Notes Codes Status Date Visit Plan: Hyperlipidemia - pt has been [...] patient to cut back on smoking. 07/03/2018 Patient Education: Patient Medication Summary Completed 07/03/2018 Patient Education: Cholesterol Management Completed 07/03/2018 Patient Education: Smoking and Tobacco Addiction Completed 07/03/2018 Care Plan: Comp Metabolic Pending 07/03/2018 Care Plan: Cbc With Differential Pending 07/03/2018 Care Plan: Lipid Pending 07/03/2018 Care Plan: Tsh Pending 07/03/2018 Instructions Comment . Hyperlipidemia - pt has been counseled [...]
[2018-08-29] MEDS ORDERED: KETOROLAC 60 MG/2 ML VIAL IM ONE (16:45)
[2018-08-29] MEDS ORDERED: ORPHENADRINE 60 MG/2 ML (NORFLEX) AMP IM ONE (16:45)
[2018-08-29 16:53] LABS: BILIRUBIN,URINE 1+ (NEGATIVE); CLARITY,URINE VERY CLOUDY; COLOR,URINE YELLOW; GLUCOSE, URINE (UA) NEGATIVE (NEGATIVE); KETONES,URINE 1+ (NEGATIVE); LEUKOCYTE ESTERASE ,URINE 1+ (NEGATIVE); NITRITE,URINE NEGATIVE (NEGATIVE); PH,URINE 5 (5-9); PROTEIN,URINE 2+ (NEGATIVE); UROBILINOGEN,URINE 1 MG/DL (NORMAL)
[2018-08-29 17:03] LABS: CALCIUM OXALATE CRYSTALS,UR MODERATE /LPF; RBC,URINE 0-2 /HPF; WBC,URINE 0-2 /HPF
--- NOTE | 2018-08-29 17:30 | Diagnostic Imaging Report ---
PROCEDURE: CT lumbar spine without contrast. TECHNIQUE: Multiple contiguous axial images were obtained through the lumbar spine without the use of intravenous contrast. Sagittal and coronal reformations were then performed. INDICATION: Low back pain. FINDINGS: Curvature is normal. There is minimal retrolisthesis of L3 on L4 and anterolisthesis of L4 on L5. Vertebral body heights are within normal limits. No acute compression fracture is seen. There is generalized degenerative disc disease with variable disc space narrowing and marginal spurring. There is vacuum disc phenomena at L3-4 and L4-5 levels. There is multilevel facet arthropathy, likely accounting for the anterolisthesis. There appears to be central canal narrowing at L2-3, L3-4 levels with severe canal narrowing at L4-5. Paraspinous tissues are unremarkable. 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 Dictated by: Dictated on workstation # [id number]
--- NOTE | 2018-08-29 17:33 | ED Back Pain ---
General Chief Complaint: Back Problems Stated Complaint: BACK PAIN Source of Information: Patient, EMS Exam Limitations: No Limitations History of Present Illness Date Seen by Provider: Aug 29, 2018 Time Seen by Provider: 16:45 Initial Comments 73-year-old female who is brought into the emergency room by EMS for complaints of low back pain that radiates down to her right leg. She denies injury. Reports that she has had this back pain in the past. Location: Lumbar Spine Timing/Duration: Other (chronic) Pain/Injury Location: Back Radiation: Upper Legs (right leg) Associated Symptoms: No numbness in legs/feet, No loss of bladder control, No loss of bowel control; other (denies saddle paresthesia) Allergies and Home Medications Allergies Coded Allergies: Sulfa (Sulfonamide Antibiotics) (Unverified Allergy, 08/25/11) Home Medications Atorvastatin Calcium 40 Mg Tablet, 40 MG PO HS, (Reported) Bisacodyl 5 Mg Tablet.dr, 5 MG PO DAILY PRN for CONSTIPATION-1ST LINE, (Reported ) Calcium Carbonate 600 Mg Tablet, 600 MG PO DAILY, (Reported) Cyclobenzaprine HCl 5 Mg Tablet, 5 MG PO Q8H Prescribed by: AGGIE LEDESMA on 08/29/18 1745 Multivits-Min/Iron/FA/Lutein 1 Each Tablet, 1 EACH PO DAILY, (Reported) Vitamin B Complex 100 No.2 100 Mg Tablet.er, 100 MG PO DAILY, (Reported) Patient Home Medication List Home Medication List Reviewed: Yes Past Amihrje-Jxipss-Zrnnyk Hx Patient Social History Type Used: Cigarettes Recent Foreign Travel: No Contact w/Someone Who Travel: No Recent Hopitalizations: No Immunizations Up To Date Tetanus Booster (TDap): Unknown PED Vaccines UTD: No Date of Pneumonia Vaccine: May 29, 2018 Date of Influenza Vaccine: Apr 10, 2018 Seasonal Allergies Seasonal Allergies: No Past Medical History Surgeries: Yes (R breast lumpectomy) Respiratory: No Cardiac: No Neurological: No Reproductive Disorders: No Sexually Transmitted Disease: No Genitourinary: No Gastrointestinal: No Musculoskeletal: Yes Arthritis Endocrine: No HEENT: No (cataracts removed, dentures) Cancer: Yes Breast What Type of Treatment Did You: Radiation, Surgical Intervention Psychosocial: No Integumentary: No Blood Disorders: No Family Medical History Alcoholism G8 BROTHER Cardiovascular disease 19 MOTHER Completed stroke 19 FATHER FH: throat cancer G8 SISTER Hypertension 19 MOTHER Myocardial infarction 19 MOTHER Physical Exam Vital Signs Vital Signs - First Documented 08/29/18 16:22 Temp 96.8 Pulse 84 Resp 14 B/P (MAP) 141/99 (113) Pulse Ox 94 O2 Delivery Room Air Capillary Refill : Height, Weight, BMI Height: 5'8.00" Weight: 169lbs. 0.0oz. [id number]; 25.7 BMI Method: Progress/Results/Core Measures Results/Orders Lab Results Laboratory Tests Test 08/29/18 16:45 Range/Units Urine Color YELLOW Urine Clarity VERY CLOUDY H Urine pH 5 5-9 Urine Specific [place] 1.025 H 1.016-1.022 Urine Protein 2+ H NEGATIVE Urine Glucose (UA) NEGATIVE NEGATIVE Urine Ketones 1+ H NEGATIVE Urine Nitrite NEGATIVE NEGATIVE Urine Bilirubin 1+ H NEGATIVE Urine Urobilinogen 1 NORMAL MG/DL Urine Leukocyte Esterase 1+ H NEGATIVE Urine RBC (Auto) 1+ H NEGATIVE Urine RBC 0-2 /HPF Urine WBC 0-2 /HPF Urine Squamous Epithelial Cells 2-5 /HPF Urine Crystals PRESENT H /LPF Urine Calcium Oxalate Crystals MODERATE H /LPF Urine Bacteria NONE /HPF Urine Casts NONE /LPF Urine Mucus NEGATIVE /LPF Urine Culture Indicated NO My Orders Orders - CALLIE,AGGIE Ketorolac Injection (Toradol Injection) (08/29/18 16:45) Orphenadrine Injection (Norflex Injectio (08/29/18 16:45) Ct Lumbar Spine Wo (08/29/18 16:39) Ua Culture If Indicated (08/29/18 16:42) Medications Given in ED Vital Signs/I&O 08/29/18 08/29/18 16:22 18:00 Temp 96.8 Pulse 84 80 Resp 14 14 B/P (MAP) 141/99 (113) 163/89 (113) Pulse Ox 94 98 O2 Delivery Room Air Room Air Progress Progress Note : Time: 17:43 Progress Note I have seen and evaluated the patient. Her pain has improved and is almost gone at this time. I've informed her of her imaging studies and laboratory results. She agrees with plan of care, plans for discharge, return precautions were given. Departure Impression Primary Impression: Back pain Disposition: 01 HOME, SELF-CARE Condition: Stable/Unchanged Departure-Patient Inst. Decision time for Depature: 17:44 Referrals: WILMER ROY MD (PCP/Family) Primary Care Physician Patient Instructions: Low Back Pain (DC) Add. Discharge Instructions: Take medications as directed. You may use ibuprofen and Tylenol as directed by the bottle for pain relief. Follow-up with your primary care provider within 1 week for recheck. Return back to the emergency room for worsening symptoms or concerns as needed. All discharge instructions reviewed with patient and/or family. Voiced understanding. Scripts Cyclobenzaprine HCl (Cyclobenzaprine HCl) 5 Mg Tablet 5 MG PO Q8H, #10 TAB Prov: AGGIE LEDESMA 08/29/18 AGGIE LEDESMA Aug 29, 2018 17:33
[2018-08-29] MEDS ORDERED: CYCL5TAB PO (17:45)
[2018-08-29 18:00] VITALS: BP 163/89
== END 2018-08-29 18:01 | disposition home or self-care (01) ==
LOC: EDUNIT# 16:22 → ER 16:23
DX: M54.5 Low back pain (principal); Z88.2 Allergy status to sulfonamides; Z90.11 Acquired absence of right breast and nipple; Z82.49 Family history of ischemic heart disease and other diseases of the circulatory system; Z80.0 Family history of malignant neoplasm of digestive organs; Z85.3 Personal history of malignant neoplasm of breast; Z92.21 Personal history of antineoplastic chemotherapy
CPT/HCPCS: 72131; 81000

== ENCOUNTER 2020-12-02 09:35 | Inpatient (IN) | payer MEDICARE ==
[2020-12-02] VITALS (9 sets, daily range): BP systolic 123–145; BP diastolic 71–102
[~2020-12-02] VITALS: Ht 172.7 cm; Wt 70.2 kg
[~2020-12-02 09:35] MED LIST changes: -CALC600T12 PO; +CALC600T91 PO; +CYCL5TAB PO
--- NOTE | 2020-12-02 10:10 | ED Neurological Problem ---
General Chief Complaint: Neuro-Stroke Like Symptoms Stated Complaint: STROKE Nursing Triage Note: ADM TO ED PER EMS WITH STROKE LIKE SYMPTOMS THAT STARTED LAST NIGHT. STARTED UNABLE TO USE L SIDE. CALLED EMS TODAY. ONSET OF SYMPTOMS LAST NIGHT AROUND 1030. DUE TO GET SONIA GARCIA DECEMBER 12 AT [facility]. ON ADMIT PATIENT UNABLE TO USE L SIDE. Nursing Sepsis Screen: No Definite Risk Source: patient Exam Limitations: no limitations History of Present Illness Date Seen by Provider: December 02, 2020 Time Seen by Provider: 09:56 Initial Comments Patient is a 75-year-old female who presents to the emergency department today with a chief complaint of inability to move her left side. Patient states that her symptoms started at around 10 or 1030 last night and she states they got better when she was going to bed. Patient states she woke up this morning with the inability to move her left side. As I am seeing the patient and examining her she starts reaching and grabbing with her left hand and bending and flexing her left knee. Patient initially states that she could not move it and could not feel it but then as the examination progressed as stated she started moving everything. She still describes a decreased sensation to her left upper arm. She denies chest pain, shortness of breath, abdominal pain. No urinary complaints no diarrhea. Patient states that she takes Aleve for chronic back pain and occasionally takes Tylenol. She denies any recent illnesses other than her back pain. She states she does not take any other medications whatsoever. No recent traumas. She denies a headache. All other review of systems reviewed and negative except as stated above. Timing/Duration: unknown (Possibly 12 hours ago) Severity: moderate Associated Symptoms: paresthesia Allergies and Home Medications Allergies Coded Allergies: Sulfa (Sulfonamide Antibiotics) (Unverified Allergy, Unknown, 12/02/20) Home Medications Atorvastatin Calcium 40 Mg Tablet, 40 MG PO HS, (Reported) Bisacodyl 5 Mg Tablet.dr, 5 MG PO DAILY PRN for CONSTIPATION-1ST LINE, (Reported) Calcium Carbonate 600 Mg Tablet, 600 MG PO DAILY, (Reported) Cyclobenzaprine HCl 5 Mg Tablet, 5 MG PO Q8H Prescribed by: AGGIE LEDESMA on 08/29/18 1745 Multivits-Min/Iron/FA/Lutein 1 Each Tablet, 1 EACH PO DAILY, (Reported) Vitamin B Complex 100 No.2 100 Mg Tablet.er, 100 MG PO DAILY, (Reported) Patient Home Medication List Home Medication List Reviewed: Yes Review of Systems Review of Systems Constitutional: see HPI Eyes: No Symptoms Reported Ears, Nose, Mouth, Throat: no symptoms reported Respiratory: no symptoms reported Cardiovascular: no symptoms reported Gastrointestinal: no symptoms reported Genitourinary: no symptoms reported : No Musculoskeletal: no symptoms reported Skin: no symptoms reported Psychiatric/Neurological: Unable to Move Lower Ext (Left leg), Unable to Move Upper Ext (Left arm) Past Bajvrkz-Inmqgw-Tsrylm Hx Patient Social History Alcohol Use: Denies Use Smoking Status: Current Everyday Smoker Type Used: Cigarettes Recent Infectious Disease Expo: No Recent Hopitalizations: No Immunizations Up To Date Tetanus Booster (TDap): Unknown PED Vaccines UTD: No Date of Pneumonia Vaccine: May 29, 2018 Date of Influenza Vaccine: Apr 10, 2018 Seasonal Allergies Seasonal Allergies: No Past Medical History Surgeries: Yes (R breast lumpectomy) Bladder Surgery, Hysterectomy Respiratory: No Cardiac: No Neurological: No Reproductive Disorders: No Sexually Transmitted Disease: No Genitourinary: No Gastrointestinal: No 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) Arthritis Endocrine: No HEENT: No (cataracts removed, dentures) Cancer: Yes Breast What Type of Treatment Did You: Radiation, Surgical Intervention Psychosocial: No Integumentary: No Blood Disorders: No Family Medical History Alcoholism G8 BROTHER Cardiovascular disease 19 MOTHER Completed stroke 19 FATHER FH: throat cancer G8 SISTER Hypertension 19 MOTHER Myocardial infarction 19 MOTHER Physical Exam Vital Signs Vital Signs - First Documented 12/02/20 12/02/20 09:35 14:01 Temp 37.1 Pulse 90 Resp 18 B/P (MAP) 136/63 O2 Delivery Room Air Capillary Refill : Less Than 3 Seconds Height, Weight, BMI Height: 5'8.00" Weight: 160lbs. 0.0oz. 72.654717nu; 22.00 BMI Method:Stated General Appearance: WD/WN, no apparent distress HEENT: PERRL/EOMI, normal ENT inspection Neck: full range of motion, supple Respiratory: lungs clear, normal breath sounds, no respiratory distress, no accessory muscle use Cardiovascular: regular rate, rhythm Gastrointestinal: non tender, soft Extremities: normal range of motion, non-tender, normal inspection, no pedal edema Neurologic/Psychiatric: no motor/sensory deficits, alert, normal mood/affect, oriented x 3 Crainal Nerves: normal hearing, normal speech (Patient is edentulous so therefore her speech is somewhat slurred), PERRL Motor/Sensory: no motor deficit, sensory deficit (Patient states that she has "numbness" to her left upper arm.) Skin: normal color, warm/dry Stroke Onset of Symptoms Date of Onset of Symptoms: December 01, 2020 Time of Symptom Onset: 22:00 Onset of Symptoms: No Symptoms onset unknown: Yes NIH Stroke Scale Assessment Select: Initial Level of Consciousness: 0=Alert (0), Level of Consciousness- Questions: 0=Answers both month/age (0), LOC Commands: 0=Performs both tasks (0), Gaze: Normal (0), Visual Shelton: 0=No visual loss (0), Facial Movement (Facial Paresis): 0=Normal symmetrical mnt (0), Motor Function-Arms Right: 0=No drift (0), Motor Function-Arms Left: 2=Some effort/gravity (2), Motor Function-Legs Right: 0=No drift (0), Motor Function-Legs Left: 1=Drift (1), Limb Ataxia: 2=Present in two limbs (2), Sensory: 1=Mild to Moderate loss (1), Dysarthria: 1=Mild to moderate loss (1), Extinction & Inattention: 0=No abnormality (0), Total: 7 Stroke Thrombolytic Exclusion Age 18 or Over: Yes Acute intenal hemorrhage: No History of CVA: No Uncontrolled Coagulation Defec: No Intracranial Hemorrhage: No Severe Hypertension: No GI or Bleed: No Subarachnoid Hemorrhage: No Intracranial Neoplasm/Aneurysm: No Oral Anticoagulants: No Surgery or Trauma: No Puncture of Non-Compressible V: No Recent CPR: No Diabetic Hemorrhagic Retinopat: No Organ Biopsy: No Recent Obstetric Delivery: No Glucose: No Significant Hepatic Dysfunctio: No NIH Stoke Scale >22: No Bacterial Endocarditis: No Pericarditis: No Improving Symptoms: Yes Platelets: No Progress/Results/Core Measures Results/Orders Lab Results Laboratory Tests Test 12/02/20 09:38 12/02/20 11:27 Range/Units White Blood Count 6.0 4.3-11.0 10^3/uL Red Blood Count 4.62 3.80-5.11 10^6/uL Hemoglobin 13.8 11.5-16.0 g/dL Hematocrit 43 35-52 % Mean Corpuscular Volume 92 80-99 fL Mean Corpuscular Hemoglobin 30 25-34 pg Mean Corpuscular Hemoglobin Concent 33 32-36 g/dL Red Cell Distribution Width 13.4 10.0-14.5 % Platelet Count 311 130-400 10^3/uL Mean Platelet Volume 10.3 9.0-12.2 fL Immature Granulocyte % (Auto) 0 % Neutrophils (%) (Auto) 54 42-75 % Lymphocytes (%) (Auto) 34 12-44 % Monocytes (%) (Auto) 7 0-12 % Eosinophils (%) (Auto) 4 0-10 % Basophils (%) (Auto) 1 0-10 % Neutrophils # (Auto) 3.2 1.8-7.8 10^3/uL Lymphocytes # (Auto) 2.0 1.0-4.0 10^3/uL Monocytes # (Auto) 0.4 0.0-1.0 10^3/uL Eosinophils # (Auto) 0.2 0.0-0.3 10^3/uL Basophils # (Auto) 0.1 0.0-0.1 10^3/uL Immature Granulocyte # (Auto) 0.0 0.0-0.1 10^3/uL Prothrombin Time 11.9 L 12.2-14.7 SEC INR Comment 0.8 0.8-1.4 Activated Partial Thromboplast Time 25 24-35 SEC Sodium Level 141 135-145 MMOL/L Potassium Level 4.2 3.6-5.0 MMOL/L Chloride Level 104 98-107 MMOL/L Carbon Dioxide Level 26 21-32 MMOL/L Anion Gap 11 5-14 MMOL/L Blood Urea Nitrogen 16 7-18 MG/DL Creatinine 0.90 0.60-1.30 MG/DL Estimat Glomerular Filtration Rate > 60 BUN/Creatinine Ratio 18 Glucose Level 121 H 70-105 MG/DL Calcium Level 9.4 8.5-10.1 MG/DL Corrected Calcium 9.3 8.5-10.1 MG/DL Total Bilirubin 0.3 0.1-1.0 MG/DL Aspartate Amino Transf (AST/SGOT) 23 5-34 U/L Alanine Aminotransferase (ALT/SGPT) 20 0-55 U/L Alkaline Phosphatase 63 40-136 U/L Total Protein 7.5 6.4-8.2 GM/DL Albumin 4.1 3.2-4.5 GM/DL Triglycerides Level 178 H <150 MG/DL Cholesterol Level 251 H < 200 MG/DL LDL Cholesterol Direct 194 H 1-129 MG/DL VLDL Cholesterol 36 5-40 MG/DL HDL Cholesterol 49 40-60 MG/DL Urine Color YELLOW Urine Clarity CLEAR Urine pH 6.5 5-9 Urine Specific [place] 1.010 L 1.016-1.022 Urine Protein NEGATIVE NEGATIVE Urine Glucose (UA) NEGATIVE NEGATIVE Urine Ketones NEGATIVE NEGATIVE Urine Nitrite NEGATIVE NEGATIVE Urine Bilirubin NEGATIVE NEGATIVE Urine Urobilinogen 0.2 < = 1.0 MG/DL Urine Leukocyte Esterase NEGATIVE NEGATIVE Urine RBC (Auto) NEGATIVE NEGATIVE Urine RBC NONE /HPF Urine WBC RARE /HPF Urine Squamous Epithelial Cells 0-2 /HPF Urine Crystals NONE /LPF Urine Bacteria TRACE /HPF Urine Casts NONE /LPF Urine Mucus NEGATIVE /LPF Urine Culture Indicated NO Urine Opiates Screen NEGATIVE NEGATIVE Urine Oxycodone Screen NEGATIVE NEGATIVE Urine Methadone Screen NEGATIVE NEGATIVE Urine Propoxyphene Screen NEGATIVE NEGATIVE Urine Barbiturates Screen NEGATIVE NEGATIVE Ur Tricyclic Antidepressants Screen NEGATIVE NEGATIVE Urine Phencyclidine Screen NEGATIVE NEGATIVE Urine Amphetamines Screen NEGATIVE NEGATIVE Urine Methamphetamines Screen NEGATIVE NEGATIVE Urine Benzodiazepines Screen NEGATIVE NEGATIVE Urine Cocaine Screen NEGATIVE NEGATIVE Urine Cannabinoids Screen NEGATIVE NEGATIVE My Orders Orders - PEMA CHAUHAN MD Ekg Tracing (12/02/20 10:12) Cbc With Automated Diff (12/02/20 10:12) Comprehensive Metabolic Panel (12/02/20 10:12) Protime With Inr (12/02/20 10:12) Partial Thromboplastin Time (12/02/20 10:12) Ct Head Wo (12/02/20 10:12) Ed Iv/Invasive Line Start (12/02/20 10:12) Drug Screen Stat (Urine) (12/02/20 10:12) Ua Culture If Indicated (12/02/20 10:12) Ct Angio Head/Neck (12/02/20 11:31) Iohexol Injection (Omnipaque 350 Mg/Ml 1 (12/02/20 11:45) Received Contrast (Hold Metformin- Contr (12/02/20 11:45) Ns (Ivpb) (Sodium Chloride 0.9% Ivpb Bag (12/02/20 11:45) Lorazepam Injection (Ativan Injection) (12/02/20 12:15) Medications Given in ED Vital Signs/I&O 12/02/20 12/02/20 09:35 14:01 Temp 37.1 Pulse 90 88 Resp 18 B/P (MAP) 136/63 O2 Delivery Room Air Progress Progress Note : Time: 11:33 Progress Note Patient back from CT and getting up to get a urine and has onset of left-sided weakness again. Patient is now using her right hand to assist lifting her left arm. She still has good banana expert from her left arm. But she will not push or pull with her left arm. She cannot lift her left leg up against gravity she makes some effort. Her speech is slurred again. But again she is edentulous. This seems to be how she was initially presenting. I would describe this as stuttering left-sided weakness. CTA head and neck is ordered. 1212 Attempted to get CTAs head and neck patient is much too agitated will not lay still or lay down for the scans. Seems a little bit confused. Asking for her son repeatedly and wants to wait until he gets here. I did speak with her son Mega who is still about an hour away. I am going to give her a little bit of Ativan and see if we can calm her down for the scan. 1334 Had discussion with stroke neurology fellow, Dr. Sweeney who recommended TPA as the symptoms restarted around 1130. Patient does continue on examination to have left upper extremity versus left lower extremity weakness. She does have proximal left lower extremity weakness but is able to dorsiflex her toes is able to health services information specialist much more weak in the proximal musculature. Patient states that her left leg feels numb. Patient continues to have some slurred speech. Had a long discussion with the family including both son and daughter and I have advised them of the risks of symptomatic intracranial hemorrhage of 5%. They both verbalized that they would like to proceed with TPA. Patient's vital signs are stable. Second line is being placed as well as Lane catheter. Patient will be admitted to the ICU. [address] Shelley [address] Grant who accepts the patient for inpatient admission Initial ECG Impression Date: December 02, 2020 Initial ECG Impression Time: 10:19 Initial ECG Rate: 81 Initial ECG Rhythm: Normal Sinus Initial ECG Intervals: Normal Initial ECG Intervals TX 192 QRS 106 QTc 455 Initial ECG Impression: Normal Comment Poor R wave progression over the precordium, Q waves inferiorly Diagnostic Imaging Diagonstic Imaging: CT Plain Films/CT/US/NM/MRI: head Comments [facility] [place] [place] NAME: CARLOS OTTO [employer] REC#: [id number] PT STATUS: REG ER : 1945 PHYSICIAN: PEMA CHAUHAN MD ADMIT DATE: 12/02/20/ER Signed Date of Exam:12/02/20 CT HEAD WO EXAMINATION: CT head without contrast. TECHNIQUE: Multiple contiguous axial images were obtained through the brain without the use of intravenous contrast. All CT scans use one or more of the following dose optimizing techniques: automated exposure control, MA and/or KvP adjustment based on patient size and exam type or iterative reconstruction. HISTORY: Left arm and leg numbness and weakness. Concern for stroke. COMPARISON: None available. FINDINGS: No large acute territorial ischemia, mass, or hemorrhage. No midline shift or mass effect. Decreased attenuation is seen in the periventricular and subcortical white matter. The ventricles and cortical sulci are prominent. The basilar cisterns are patent and unremarkable. The orbits are normal. Paranasal sinuses are normal. Mastoid air cells are clear. No soft tissue abnormality is seen. No osseus lesions or fractures are seen. IMPRESSION: 1. No large acute territorial ischemia, mass, or hemorrhage. 2. Chronic microvascular disease. 3. Generalized parenchymal volume loss. Dictated by: Dictated on workstation # [id number] Dict: 12/02/20 1056 Trans: 12/02/20 1109 [id number] Interpreted by: AYAN EL DO Electronically signed by: AYAN EL DO 12/02/20 1109 [facility] [place] [place] NAME: CARLOS OTTO Doorman REC#: [id number] PT STATUS: REG ER : 1945 PHYSICIAN: PEMA CHAUHAN MD ADMIT DATE: 12/02/20/ER Draft Date of Exam:12/02/20 CT ANGIO HEAD/NECK INDICATION: Left-sided weakness, stroke symptoms. TECHNIQUE: Contiguous noncontrast images were obtained from the skull base through the vertex. After intravenous contrast administration, helical CT angiography of the neck was performed. Source data was reformatted into 3D MIP projections. Delayed post contrast acquisition was also obtained. Auto Exposure Controls were utilized during the CT exam to meet ALARA standards for radiation dose reduction. COMPARISON: Correlation is made to the noncontrast CT from earlier today. FINDINGS: The thoracic aortic arch is normal in caliber with mild atherosclerotic plaquing. The great vessel origins are patent and without significant stenosis. The common carotid arteries are patent on both sides. There is eccentric plaquing in the left carotid bifurcation but no significant stenosis. The internal and external carotids are patent on both sides and without stenosis or dissection. The vertebral arteries on both sides are patent and without stenosis. The distal vertebral arteries, basilar artery, and posterior cerebral arteries are patent. There is a origin of the right posterior cerebral artery. The distal internal carotid arteries, anterior cerebral arteries, and middle cerebral arteries are patent. There is no major vessel stenosis, occlusion, or aneurysmal disease. The dural venous sinuses are patent. IMPRESSION: The CTA neck demonstrates mild plaquing in the left carotid bifurcation. There is no significant stenosis of the carotid or vertebral territories. The CTA head demonstrates no major vessel stenosis, occlusion, or aneurysmal disease. Dictated on workstation # [id number] Dict: 12/02/20 1307 Trans: 12/02/20 1314 [id number] Interpreted by: TADEO ENGLISH MD Electronically signed by: Critical Care Note Critical Care Start Time: 11:00 Stop Time: 13:30 Total Time (minutes) 45 minutes critical care time in the evaluation and management of this patient with stuttering CVA symptoms. Time includes multiple reevaluations of the patient, review and interpretation of laboratory studies, imaging studies, discussion with the radiologist, discussion with [facility] stroke neurology on 2 different occasions; administration of TPA and monitoring of the patient Departure Communication (Admissions) Time/Spoke to Admitting Phy: 14:[address] Grant. Recommends ICU admission, hold off on DVT prophylaxis as well as oral aspirin currently. Will not do CT perfusion study at this time either. Time/Spoke to Consulting Phy: 13:34 Case discussed with , neurology fellow at . Who recommends TPA administration at this time Family Conversation TPA discussed with family at length. I discussed this with both the son and daughter. They consented to administration of TPA at this time Impression Primary Impression: Acute CVA (cerebrovascular accident) Disposition: ADMITTED INPATIENT Condition: Stable Admissions Decision to Admit Reason: Admit from ER (General) Decision to Admit/Date: December 02, 2020 Time/Decision to Admit Time: 14:27 Departure-Patient Inst. Referrals: WILMER SHELLEY MD (PCP/Family) Primary Care Physician PEMA CHAUHAN MD December 02, 2020 10:10
[2020-12-02 10:19] LABS: BASOPHILS # (AUTO) 0.1 10^3/uL (0.0-0.1); BASOPHILS % (AUTO) 1 % (0-10); EOSINOPHILS # (AUTO) 0.2 10^3/uL (0.0-0.3); EOSINOPHILS % (AUTO) 4 % (0-10); HEMATOCRIT 43 % (35-52); HEMOGLOBIN 13.8 g/dL (11.5-16.0); LYMPHOCYTES % (AUTO) 34 % (12-44); MEAN CORPUSCULAR HEMOGLOBIN 30 pg (25-34); MEAN CORPUSCULAR HGB CONC 33 g/dL (32-36); MEAN CORPUSCULAR VOLUME 92 fL (80-99); MEAN PLATELET VOLUME 10.3 fL (9.0-12.2); MONOCYTES # (AUTO) 0.4 10^3/uL (0.0-1.0); MONOCYTES % (AUTO) 7 % (0-12); NEUTROPHILS # (AUTO) 3.2 10^3/uL (1.8-7.8); NEUTROPHILS % (AUTO) 54 % (42-75); PLATELET COUNT 311 10^3/uL (130-400)
[2020-12-02 10:20] LABS: ALBUMIN 4.1 GM/DL (3.2-4.5); CHLORIDE 104 MMOL/L (98-107); POTASSIUM 4.2 MMOL/L (3.6-5.0); SODIUM 141 MMOL/L (135-145)
[2020-12-02 10:21] LABS: CALCIUM 9.4 MG/DL (8.5-10.1)
[2020-12-02 10:22] LABS: GLUCOSE 121 MG/DL (70-105)
[2020-12-02 10:23] LABS: TOTAL PROTEIN 7.5 GM/DL (6.4-8.2)
[2020-12-02 10:24] LABS: BILIRUBIN,TOTAL 0.3 MG/DL (0.1-1.0); CARBON DIOXIDE 26 MMOL/L (21-32)
[2020-12-02 10:25] LABS: INR 0.8 (0.8-1.4); PROTHROMBIN TIME PATIENT 11.9 SEC (12.2-14.7)
[2020-12-02 10:26] LABS: ALKALINE PHOSPHATASE 63 U/L (40-136); GFR ESTIMATED > 60
[2020-12-02 10:27] LABS: BUN/CREATININE RATIO 18
[2020-12-02 10:29] LABS: ALANINE AMINOTRANSFERASE 20 U/L (0-55)
--- NOTE | 2020-12-02 11:03 | Diagnostic Imaging Report ---
EXAMINATION: CT head without contrast. TECHNIQUE: Multiple contiguous axial images were obtained through the brain without the use of intravenous contrast. All CT scans use one or more of the following dose optimizing techniques: automated exposure control, MA and/or KvP adjustment based on patient size and exam type or iterative reconstruction. HISTORY: Left arm and leg numbness and weakness. Concern for stroke. COMPARISON: None available. FINDINGS: No large acute territorial ischemia, mass, or hemorrhage. No midline shift or mass effect. Decreased attenuation is seen in the periventricular and subcortical white matter. The ventricles and cortical sulci are prominent. The basilar cisterns are patent and unremarkable. The orbits are normal. Paranasal sinuses are normal. Mastoid air cells are clear. No soft tissue abnormality is seen. No osseus lesions or fractures are seen. IMPRESSION: 1. No large acute territorial ischemia, mass, or hemorrhage. 2. Chronic microvascular disease. 3. Generalized parenchymal volume loss. Dictated by: Dictated on workstation # [id number]
[2020-12-02 11:32] LABS: BILIRUBIN,URINE NEGATIVE (NEGATIVE); CLARITY,URINE CLEAR; COLOR,URINE YELLOW; GLUCOSE, URINE (UA) NEGATIVE (NEGATIVE); KETONES,URINE NEGATIVE (NEGATIVE); LEUKOCYTE ESTERASE ,URINE NEGATIVE (NEGATIVE); NITRITE,URINE NEGATIVE (NEGATIVE); PH,URINE 6.5 (5-9); PROTEIN,URINE NEGATIVE (NEGATIVE)
[2020-12-02 11:40] LABS: BACTERIA,URINE TRACE /HPF; SQUAMOUS EPITHELIAL CELL,UR 0-2 /HPF; WBC,URINE RARE /HPF
[2020-12-02 11:45] LABS: AMPHETAMINE SCREEN, URINE NEGATIVE (NEGATIVE); BARBITURATE SCREEN URINE NEGATIVE (NEGATIVE); BENZODIAZEPINES SCREEN URINE NEGATIVE (NEGATIVE); CANNABINOID SCREEN, URINE NEGATIVE (NEGATIVE); COCAINE SCREEN URINE NEGATIVE (NEGATIVE); METHADONE STAT NEGATIVE (NEGATIVE); METHAMPHETAMINE SCREEN URINE S NEGATIVE (NEGATIVE); OPIATE SCREEN URINE NEGATIVE (NEGATIVE); OXYCODONE STAT NEGATIVE (NEGATIVE); PROPOXYPHENE STAT NEGATIVE (NEGATIVE); TRICYCLIC ANTIDEPRESSANTS SCRE NEGATIVE (NEGATIVE)
[2020-12-02] MEDS ORDERED: HOLD METFORMIN - RECEIVED CONTRAST 20 ML VIAL IV SCH (11:45)
[2020-12-02] MEDS ORDERED: NS 100 ML (IVPB) BAG IV ONE (11:45)
[2020-12-02] MEDS ORDERED: IOHEXOL 350 MG/ML 100 ML (OMNIPAQUE 350) VIAL IV ONE (11:45)
[2020-12-02] MEDS ORDERED: LORazepam INJ 2 MG/ML (ATIVAN) VIAL IVP ONE (12:15)
--- NOTE | 2020-12-02 13:15 | Diagnostic Imaging Report ---
INDICATION: Left-sided weakness, stroke symptoms. TECHNIQUE: Contiguous noncontrast images were obtained from the skull base through the vertex. After intravenous contrast administration, helical CT angiography of the neck was performed. Source data was reformatted into 3D MIP projections. Delayed post contrast acquisition was also obtained. Auto Exposure Controls were utilized during the CT exam to meet ALARA standards for radiation dose reduction. COMPARISON: Correlation is made to the noncontrast CT from earlier today. FINDINGS: The thoracic aortic arch is normal in caliber with mild atherosclerotic plaquing. The great vessel origins are patent and without significant stenosis. The common carotid arteries are patent on both sides. There is eccentric plaquing in the left carotid bifurcation but no significant stenosis. The internal and external carotids are patent on both sides and without stenosis or dissection. The vertebral arteries on both sides are patent and without stenosis. The distal vertebral arteries, basilar artery, and posterior cerebral arteries are patent. There is a origin of the right posterior cerebral artery. The distal internal carotid arteries, anterior cerebral arteries, and middle cerebral arteries are patent. There is no major vessel stenosis, occlusion, or aneurysmal disease. The dural venous sinuses are patent. IMPRESSION: The CTA neck demonstrates mild plaquing in the left carotid bifurcation. There is no significant stenosis of the carotid or vertebral territories. The CTA head demonstrates no major vessel stenosis, occlusion, or aneurysmal disease. Dictated by: Dictated on workstation # [id number]
[2020-12-02] MEDS ORDERED: TENECTEPLASE 50 MG VIAL IV ONE (13:45)
[2020-12-02] MEDS ORDERED: CATHETER FLUSH 10 ML SYR IV PRN (15:15)
[2020-12-02 15:44] LABS: TRIGLYCERIDES 178 MG/DL (<150); VLDL CHOLESTEROL 36 MG/DL (5-40)
[2020-12-02 15:49] LABS: CHOLESTEROL 251 MG/DL (< 200)
[2020-12-02 15:50] LABS: HDL CHOLESTEROL 49 MG/DL (40-60)
[2020-12-02] MEDS ORDERED: LORazepam INJ 2 MG/ML (ATIVAN) VIAL ONE (16:01)
[2020-12-02] MEDS ORDERED: LORazepam INJ 2 MG/ML (ATIVAN) VIAL IVP NR (16:15)
[2020-12-02] MEDS ORDERED: hydrALAZINE (APESOLINE) 20 MG/ML VIAL IV PRN (16:15)
[2020-12-02] MEDS ORDERED: RT-ALBUTEROL SULF 2.5 MG/3 ML PRE-MIX VIAL INH PRN (16:15)
--- NOTE | 2020-12-02 17:53 | Diagnostic Imaging Report ---
PROCEDURE: MR imaging of the brain without contrast. TECHNIQUE: Multiplanar, multisequence MR imaging of the brain was performed without contrast. INDICATION: Left-sided weakness. Concern for stroke. COMPARISON: CT head without contrast and CTA head and neck 12/02/2020. FINDINGS: Examination is markedly limited by motion. There is restricted water diffusion in the right insula extending into the periventricular white matter of the posterior right frontal lobe measuring up to 1.5 cm. There is also some restricted water diffusion in the splenium of the corpus callosum. Abnormal signal in the splenium is out of proportion to the degree of T2 hyperintensity may be artifactual. There appears to be advanced generalized cerebral and cerebellar parenchymal volume loss. There is at least moderate diffuse T2 hyperintensities in the supratentorial white matter. No hydrocephalus or extra-axial fluid collections are identified. Intracranial flow voids are grossly unremarkable. Postoperative changes in the globes. Paranasal sinuses and mastoids are unremarkable. IMPRESSION: 1. Examination markedly limited by motion. 2. There appears to be [id number] infarct in the periventricular deep white matter of the posterior right frontal lobe extending into the insula. 3. There is also restricted water diffusion signal in the splenium of the corpus callosum. This appears to be out of proportion to the degree of T2 hyperintensity and may be artifactual. An infarct in this location cannot be excluded. Report given to Dr. Grant at 5:51 PM 12/02/2020/addie Dictated by: Dictated on workstation # [id number]
[2020-12-02] MEDS: NS IV 1000 ML 1,000 ML IV SCH (18:03)
--- NOTE | 2020-12-02 20:43 | History & Physical-Hospitalist ---
History of Present Illness HPI/Chief Complaint Juliet Fernandez is a 75 year old female with no known past medical history who presented with left sided weakness and slurred speech. She had been feeling normal until about 10 pm the night before her admission. She reports numbness and tingling on her left side. She denies headache and vision changes. She denies fevers and chills. She denies shortness of breath and cough. She denies chest pain and palpitations. She denies abdominal pain, nausea, vomiting, and diarrhea. She denies dysuria. Source: RN/MD Exam Limitations: clinical condition Date Seen 12/02/20 Time Seen by a Provider: 19:30 Attending Physician Sulma Cantor MD PCP Amy Shelley MD Referring Physician Date of Admission December 02, 2020 at 14:30 Home Medications & Allergies Home Medications Reviewed patient Home Medication Reconciliation performed by pharmacy medication reconciliations dietetic technician registered and/or nursing. Patients Allergies have been reviewed. Allergies Allergies Coded Allergies Sulfa (Sulfonamide Antibiotics) (Unverified Allergy, Unknown, 12/02/20) Patient Social History Tobacco Use?: Yes Tobacco type used: Cigarettes Smoking Status: Current Everyday Smoker Smokeless Tobacco Frequency: Never a User Use of E-Cig and/or Vaping dev: No Substance use?: No Alcohol Use?: No Pt stated abuse/neglect: No Immunizations Up To Date Influenza Vaccine Up-to-Date: No; Not Current Tetanus Booster (TDap): Unknown Hepatitis A: No Hepatitis B: No TB Skin Test: None Date of Pneumonia Vaccine: May 29, 2018 Current Status status: No status: No Do you have an Advance Directi: No Communicates: Verbally Primary Language: Czech Is interpretation needed?: No Sensory deficits: Speech impairment Additional sensory deficits: POST CVA Implanted or Applied Medical D: None Past Medical History none Family Medical History Family Hx: noncontributory Review of Systems Constitutional: weakness EENTM: no symptoms reported Respiratory: no symptoms reported Cardiovascular: no symptoms reported Gastrointestinal: no symptoms reported Genitourinary: no symptoms reported Musculoskeletal: muscle weakness Skin: no symptoms reported Psychiatric/Neurological: Numbness, Weakness Physical Exam Physical Exam Vital Signs Vital Signs - First Documented 12/02/20 12/02/20 12/02/20 09:35 14:01 14:44 Temp 37.1 Pulse 90 Resp 18 B/P (MAP) 136/63 Pulse Ox 96 O2 Delivery Room Air Capillary Refill : Less Than 3 Seconds Height, Weight, BMI Height: 5'8.00" Weight: 160lbs. 0.0oz. 72.927515me; 22.83 BMI Method:Stated General Appearance: No Apparent Distress, WD/WN HEENT: PERRL/EOMI, Pharynx Normal Neck: Normal Inspection, Supple Respiratory: Lungs Clear, Normal Breath Sounds, No Respiratory Distress Cardiovascular: Regular Rate, Rhythm, No Edema, No Murmur Gastrointestinal: Normal Bowel Sounds, Non Tender, Soft Extremity: Normal Inspection, Non Tender, No Pedal Edema Neurologic/Psychiatric: Alert, Oriented x3, Aphasia, Motor Weakness, Sensory Deficit Skin: Normal Color, Warm/Dry Results Results/Procedures Labs Laboratory Tests 12/02/20 09:38 12/03/20 02:05 Patient resulted labs reviewed. Imaging: Reviewed Imaging Report Assessment/Plan Admission Diagnosis Acute ischemic stroke Admission Status: Inpatient Order (span 2 midnights) Reason for Inpatient Admission: Stroke requiring further evaluation and treatment Assessment and Plan Acute ischemic stroke CT/CTA without acute abnormalities, no significant lesions NIH elevated, given tPA MRI showed posterior right frontal lobe stroke, possibly in splenium of corpus callosum Begin ASA at 24 hours post tPA Begin statin Begin DVT prophylaxis at 24 hours post tPA PT/OT/ST Lipid panel Echo ordered Neurochecks Repeat CT at 24 hours post tPA Diagnosis/Problems Diagnosis/Problems (1) Acute CVA (cerebrovascular accident) Status: Acute Clinical Quality Measures Stroke: Date of last known well: December 01, 2020 Time of last known well: 22:00 Symptoms onset unknown: Yes SULMA CANTOR MD December 02, 2020 20:43
[2020-12-03 02:48] LABS: BASOPHILS % (AUTO) 0 % (0-10); EOSINOPHILS % (AUTO) 0 % (0-10); HEMATOCRIT 37 % (35-52); HEMOGLOBIN 12.1 g/dL (11.5-16.0); LYMPHOCYTES # (AUTO) 1.2 10^3/uL (1.0-4.0); LYMPHOCYTES % (AUTO) 16 % (12-44); MEAN CORPUSCULAR HEMOGLOBIN 29 pg (25-34); MEAN CORPUSCULAR HGB CONC 33 g/dL (32-36); MEAN CORPUSCULAR VOLUME 89 fL (80-99); MEAN PLATELET VOLUME 9.9 fL (9.0-12.2); MONOCYTES # (AUTO) 0.4 10^3/uL (0.0-1.0); MONOCYTES % (AUTO) 6 % (0-12); NEUTROPHILS % (AUTO) 78 % (42-75); PLATELET COUNT 261 10^3/uL (130-400); WHITE BLOOD COUNT 7.7 10^3/uL (4.3-11.0)
[2020-12-03 03:03] LABS: CHLORIDE 108 MMOL/L (98-107); POTASSIUM 3.6 MMOL/L (3.6-5.0); SODIUM 142 MMOL/L (135-145)
[2020-12-03 03:04] LABS: CALCIUM 8.5 MG/DL (8.5-10.1); GLUCOSE 112 MG/DL (70-105)
[2020-12-03 03:06] LABS: CARBON DIOXIDE 22 MMOL/L (21-32)
[2020-12-03 03:08] LABS: GFR ESTIMATED > 60; PHOSPHORUS 2.7 MG/DL (2.3-4.7)
[2020-12-03 03:09] LABS: BUN/CREATININE RATIO 19
[2020-12-03 03:11] LABS: MAGNESIUM 1.9 MG/DL (1.6-2.4)
[2020-12-03] MEDS: NS IV 1000 ML 1,000 ML IV SCH (03:57)
--- NOTE | 2020-12-03 05:38 | Pulmonary Consultation ---
History of Present Illness History of Present Illness Date Seen by Provider: December 03, 2020 Time Seen by Provider: 05:35 Date of Admission Allergies and Home Medications Allergies Coded Allergies: Sulfa (Sulfonamide Antibiotics) (Unverified Allergy, Unknown, 12/02/20) Home Medications Atorvastatin Calcium 40 Mg Tablet, 40 MG PO HS, (Reported) Bisacodyl 5 Mg Tablet.dr, 5 MG PO DAILY PRN for CONSTIPATION-1ST LINE, (Reported) Calcium Carbonate 600 Mg Tablet, 600 MG PO DAILY, (Reported) Cyclobenzaprine HCl 5 Mg Tablet, 5 MG PO Q8H Prescribed by: AGGIE LEDESMA on 08/29/18 9115 Multivits-Min/Iron/FA/Lutein 1 Each Tablet, 1 EACH PO DAILY, (Reported) Vitamin B Complex 100 No.2 100 Mg Tablet.er, 100 MG PO DAILY, (Reported) Past Knqsegv-Pmloqc-Zrokhu Hx Patient Social History Alcohol Use: Denies Use Smoking Status: Current Everyday Smoker Type Used: Cigarettes Recent Infectious Disease Expo: No Recent Hopitalizations: No Have you traveled recently?: No Alcohol Use?: No Immunizations Up To Date Tetanus Booster (TDap): Unknown PED Vaccines UTD: No Date of Pneumonia Vaccine: May 29, 2018 Date of Influenza Vaccine: Apr 10, 2018 Seasonal Allergies Seasonal Allergies: No Past Medical History Surgeries: Yes (R breast lumpectomy) Bladder Surgery, Hysterectomy Respiratory: No Cardiac: No Neurological: No Reproductive Disorders: No Sexually Transmitted Disease: No Genitourinary: No Gastrointestinal: No 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 0.0oz. 72.601353bw; 22.83 BMI Method:Stated Exam Exam Vital Signs Date Time Temp Pulse Resp B/P (MAP) Pulse Ox O2 Delivery O2 Flow Rate FiO2 12/03/20 04:00 85 26 130/108 (115) 95 Room Air 12/03/20 04:00 97 Room Air 12/03/20 03:00 92 32 145/84 (104) 94 Room Air 12/03/20 02:44 95 Room Air 12/03/20 02:00 80 17 126/61 (82) 94 Room Air 12/03/20 01:00 90 12/03/20 01:00 90 142/66 (91) 94 Room Air 12/03/20 00:00 77 16 128/59 (82) 95 Room Air 12/02/20 23:59 97 Room Air 12/02/20 23:00 76 17 126/66 (86) 97 Room Air 12/02/20 22:00 75 19 115/62 (79) 95 Room Air 12/02/20 21:00 75 12 122/59 (80) 96 Room Air 12/02/20 20:00 97 Room Air 12/02/20 20:00 77 19 123/65 (84) 95 Room Air 12/02/20 20:00 36.3 12/02/20 19:39 76 18 126/69 (88) 96 Room Air 12/02/20 19:00 84 12/02/20 18:00 82 49 119/67 (84) 97 Room Air 12/02/20 17:00 80 45 136/82 (100) 95 Room Air 12/02/20 16:19 36.8 12/02/20 16:00 97 Room Air 12/02/20 15:54 36.6 87 97 12/02/20 15:40 87 22 143/92 (102) 97 12/02/20 15:40 87 20 143/92 97 12/02/20 15:35 78 17 141/71 97 12/02/20 15:35 84 17 141/71 (96) 97 12/02/20 15:30 20 141/102 (116) 96 12/02/20 15:30 84 21 141/102 96 12/02/20 15:25 85 20 141/72 96 12/02/20 15:25 85 18 141/72 (104) 96 12/02/20 15:20 84 21 123/83 96 12/02/20 15:20 84 21 123/83 (91) 96 12/02/20 15:15 81 16 135/86 (100) 96 12/02/20 15:15 81 16 135/86 96 12/02/20 15:10 20 135/81 (101) 96 12/02/20 15:05 86 22 145/81 96 12/02/20 15:05 86 20 145/81 (98) 96 12/02/20 15:01 82 12/02/20 15:00 36.6 82 22 141/82 (115) 97 Room Air 12/02/20 15:00 82 24 141/82 97 12/02/20 14:44 89 18 108/95 96 12/02/20 14:01 88 136/63 12/02/20 09:35 37.1 90 18 Room Air I & O 12/03/20 07:00 Intake Total 0 ml Output Total 780 ml Balance -780 ml Height & Weight Height: 5'8.00" Weight: 160lbs. 0.0oz. 72.461291cj; 22.83 BMI Method:Stated Capillary Refill: Less Than 3 Seconds Gastrointestinal: non tender, soft Results Lab Laboratory Tests 12/02/20 09:38 12/03/20 02:05 Assessment/Plan Assessment/Plan Acute CVA with left sided weakness -s/p TPA was given at 1401 yesterday -Start antiplatlet 24hrs after TPA -Swallow eval pending -NIH was 10 on admission and is now 7 -PT/ot -Check echo -repeat CT head pending CHRISTIANO AKERS DO December 03, 2020 05:38
[2020-12-03] MEDS ORDERED: MAGNESIUM 1 GM/100 ML IVPB 100 ML IV SCH (06:00)
[2020-12-03] MEDS ORDERED: POTASSIUM CL 10MEQ/50ML IVPB 50 ML IV SCH (06:00)
[2020-12-03] MEDS ORDERED: KCL 20 MEQ TAB (K-DUR) PO SCH (06:00)
--- NOTE | 2020-12-03 07:03 | Diagnostic Imaging Report ---
INDICATION: Short of air. CVA. FINDINGS: Upright portable chest shows the heart size and vascularity to be upper normal. The lungs are clear. There is no effusion or pneumothorax. There is no acute bony abnormality. IMPRESSION: No acute abnormality is seen. The chest is similar to a study from 05/27/2009. Dictated by: Dictated on workstation # [id number]
--- NOTE | 2020-12-03 08:24 | ST Dysphagia Evaluation ---
Speech Evaluation-General Medical Diagnosis CVA Onset Date: December 02, 2020 Therapy Diagnosis Therapy Diagnosis: Oropharyngeal Dysphagia Precautions Precautions: Fall Precautions/Isolations: Fall Prevention, Standard Precautions Flight risk Referral Referring Physician: Dr. Grant Medical History Pertinent Medical History: Smoking Current History CVA Reviewed History: Yes Social History Current Living Status: Alone Speech PLF/Current-Dysphagia Prior Level of Function Patient states she lives home alone where she was independent for her daily needs. Subjective Patient was cooperative with the Bedside Dysphagia Evaluation. Cognitive Status Patient Orientation: Person, Place, Situation Oral Motor Skills Dentition: Edentalous Ability to Follow Directions: Good Patient states she wears dentures, however they were not present. NPO pending BD E Oral Expression Ability: Mild Impairment Voice Voice Phonatory-Based Quality: Weak Voice Pitch: Normal Voice Loudness: Mildly Soft/Quiet Face Facial Symmetry: Symmetrical Oral-Facial Assessment Oral-Facial Dentition: Normal Labial Seal Description: Weak Lingual Protrusion: Normal Lingual ROM: Normal Lingual Strength: Normal Pharynx Velopharyngeal Move.: Normal Volitional Dry Swallow: Yes Voluntary Cough: Yes Can Clear Throat Volitionally: Yes Productive Cough: Yes Dysphagia Evaluation Consistencies Presented: Thin Liquid, Mechanical Soft, Pureed Patient was not presented the regular consistency due to being edentulous. Oral Phase: Unable to Form Bolus, Reduced Oral Transit Oral phase was within normal range of function for thin liquids and puree. Patient was unable to form a bolus with mechanical soft. Pharyngeal phase within normal limits for all consistencies presented. Funct. Velo/Pharyngeal Symptom: Clears Throat, Cough After Swallow Cough/clear with first 1/2 tsp presentation of thin liquids. Subsequent presentations of thin liquids were taken without s/s of aspiration or coughing. Dietary Recommendations: Pureed Liquid Recommendations: Thin Swallowing Precautions: Alternate Liquids/Solids, Double Swallow, Decreased Bolus 1/2 Tsp, Decreased Rate of Oral Intake, Liquids from Straw, Small Bites and Sips, Sitting Upright 90 Degrees, Sitting 90 Degrees 30 Post Intake Dysphagia Evaluation Summary Patient is a 75 y/o female who was admitted to the ICU via ED with stroke like symptoms. The patient was referred for a Bedside Dysphagia Evaluation which was completed this morning. The patient was noted to be edentulous, however she does state she normally wears dentures at home. She was presented 1/2 tsp of thin liquids x2 with cough/clear noted following the first one. The subsequent presentation and small sips via straw x2 were without difficulty. The patient was presented 1/2 tsp of puree with adequate oral and pharyngeal function. The patient was presented 1/2 tsp of mechanical soft with increased mastication time noted due to decreased ability to form a bolus. Delayed swallow onset with mechanical soft, however she did clear without difficulty. The patient is recommended for Dysphagia I with thin liquids which was relayed to her nurse and written on the white board in her room. Barriers to Learning Medical status and age Speech-Plan Patient/Family Goals Patient/Family Goals: Patient's plans at discharge are unknown at this time. Treatment Plan Speech Therapy Treatment Plan: Discontinue ST Treatment Duration: December 03, 2020 Frequency: 1 time per week Estimated Hrs Per Day: .25 hour per day Rehab Potential: Good Barriers to Learning: New onset CVA and age Pt/Family Agrees to Plan: Yes Safety Risks/Education Teaching Recipient: Patient Teaching Methods: Discussion Response to Teaching: Verbalize Understanding Education Topics Provided: Safety of oral intake, diet level Time Speech Therapy Time In: 08:00 Speech Therapy Time Out: 08:20 Total Billed Time: 20 Billed Treatment Time 1, DYSPHANIS, DYST ARNULFO Barrett December 03, 2020 08:24
[2020-12-03] MEDS ORDERED: ACET-2 PO (09:58)
[2020-12-03] MEDS ORDERED: CYAN500T8 PO (09:58)
[2020-12-03] MEDS: D5 1/2 NS W/KCL 20 MEQ/L 1,000 ML IV SCH ×2 (10:56→21:37)
[2020-12-03] MEDS ORDERED: LORazepam INJ 2 MG/ML (ATIVAN) VIAL ONE (14:20)
[2020-12-03] MEDS ORDERED: LORazepam INJ 2 MG/ML (ATIVAN) VIAL IVP ONE (14:30)
--- NOTE | 2020-12-03 15:29 | Progress Note - Hospitalist ---
Subjective HPI/CC On Admission Date Seen by Provider: December 03, 2020 Time Seen by Provider: 08:55 Juliet Fernandez is a 75 year old female with no known past medical history who presented with left sided weakness and slurred speech. She had been feeling normal until about 10 pm the night before her admission. She reports numbness and tingling on her left side. She denies headache and vision changes. She denies fevers and chills. She denies shortness of breath and cough. She denies chest pain and palpitations. She denies abdominal pain, nausea, vomiting, and diarrhea. She denies dysuria. Subjective/Events-last exam She continues to have severe left sided weakness. She still has slurred speech. She has no other complaints. Objective Exam Vital Signs Vital Signs Date Time Temp Pulse Resp B/P (MAP) Pulse Ox O2 Delivery O2 Flow Rate FiO2 12/03/20 12:58 91 12/03/20 12:00 18 135/67 (89) 93 Room Air 12/03/20 11:47 36.8 Capillary Refill : Less Than 3 Seconds General Appearance: No Apparent Distress, WD/WN HEENT: PERRL/EOMI, Pharynx Normal Neck: Normal Inspection, Supple Respiratory: Lungs Clear, Normal Breath Sounds, No Respiratory Distress Cardiovascular: Regular Rate, Rhythm, No Edema, No Murmur Gastrointestinal: Normal Bowel Sounds, Non Tender, Soft Extremity: Normal Inspection, Non Tender, No Pedal Edema Neurologic/Psychiatric: Alert, Oriented x3, Aphasia, Motor Weakness, Sensory Deficit Skin: Normal Color, Warm/Dry Lymphatic: No Adenopathy Results/Procedures Lab Laboratory Tests 12/03/20 02:05 Patient resulted labs reviewed. Imaging: Reviewed Imaging Report Assessment/Plan Assessment and Plan Assess & Plan/Chief Complaint Acute ischemic stroke Hyperlipidemia Hypertension CT/CTA without acute abnormalities, no significant lesions NIH elevated, given tPA MRI showed posterior right frontal lobe stroke, possibly in splenium of corpus callosum PT/OT/ST Lipid panel showed elevated cholesterol, LDL, and triglycerides Begin Lipitor BP mildly elevated Begin Lisinopril Echo showed normal EF, diastolic dysfunction Repeat CT at 24 hours post tPA If CT negative, begin ASA If CT negative, begin DVT prophylaxis Diagnosis/Problems Diagnosis/Problems (1) Acute CVA (cerebrovascular accident) Status: Acute (2) HLD (hyperlipidemia) Status: Acute (3) HTN (hypertension) Status: Acute Qualifiers: Hypertension type: essential hypertension Qualified Codes: I10 - Essential (primary) hypertension Clinical Quality Measures Stroke: Date of last known well: December 01, 2020 Time of last known well: 22:00 Symptoms onset unknown: Yes CHAO CANTOR MD December 03, 2020 15:29
--- NOTE | 2020-12-03 15:31 | Diagnostic Imaging Report ---
INDICATION: Stroke, 24 hours post TPA. TECHNIQUE: Multiple contiguous axial images were obtained through the brain without the use of intravenous contrast. Auto Exposure Controls were utilized during the CT exam to meet ALARA standards for radiation dose reduction. COMPARISON: The noncontrast head CT is compared to the previous day. FINDINGS: There are diffuse atrophic changes. There are mild low-density changes in the deep white matter, compatible with chronic ischemic change. A small right periventricular lacunar infarct is noted as discussed on the MRI study. There is no evidence of hemorrhage or subdural or epidural collection. The ventricles are normal in size. The calvarial windows appear normal. IMPRESSION: Atrophic changes with mild chronic changes in the deep white matter. Small right periventricular white matter infarct is unchanged compared to the MRI study of yesterday. There is no acute hemorrhage or mass effect. Dictated by: Dictated on workstation # [id number]
[2020-12-03] MEDS: MELATONIN 3 MG TABLET PO SCH (23:27)
[2020-12-04] MEDS: ZOLPIDEM 5 MG (AMBIEN) TAB PO PRN ×2 (00:16→23:37)
[2020-12-04 03:32] LABS: BASOPHILS # (AUTO) 0.1 10^3/uL (0.0-0.1); BASOPHILS % (AUTO) 1 % (0-10); EOSINOPHILS # (AUTO) 0.1 10^3/uL (0.0-0.3); EOSINOPHILS % (AUTO) 2 % (0-10); HEMATOCRIT 35 % (35-52); HEMOGLOBIN 11.4 g/dL (11.5-16.0); LYMPHOCYTES # (AUTO) 1.8 10^3/uL (1.0-4.0); LYMPHOCYTES % (AUTO) 24 % (12-44); MEAN CORPUSCULAR HEMOGLOBIN 30 pg (25-34); MEAN CORPUSCULAR HGB CONC 33 g/dL (32-36); MEAN CORPUSCULAR VOLUME 90 fL (80-99); MEAN PLATELET VOLUME 9.8 fL (9.0-12.2); MONOCYTES # (AUTO) 0.6 10^3/uL (0.0-1.0); MONOCYTES % (AUTO) 8 % (0-12); NEUTROPHILS % (AUTO) 66 % (42-75); PLATELET COUNT 244 10^3/uL (130-400); WHITE BLOOD COUNT 7.6 10^3/uL (4.3-11.0)
[2020-12-04 03:55] LABS: BUN/CREATININE RATIO 14; CALCIUM 8.4 MG/DL (8.5-10.1); CARBON DIOXIDE 24 MMOL/L (21-32); CHLORIDE 109 MMOL/L (98-107); CREATININE SERUM 0.76 MG/DL (0.60-1.30); GFR ESTIMATED > 60; GLUCOSE 128 MG/DL (70-105); PHOSPHORUS 2.1 MG/DL (2.3-4.7); POTASSIUM 3.9 MMOL/L (3.6-5.0); SODIUM 139 MMOL/L (135-145)
--- NOTE | 2020-12-04 05:12 | Pulmonary Progress Note ---
Subjective Time Seen by a Provider: 05:08 Subjective/Events-last exam Pt appears to be doing better. Plan is for IRF. Sepsis Event Evaluation Height, Weight, BMI Height: 5'8.00" Weight: 160lbs. 0.0oz. 72.651812zj; 22.83 BMI Method:Stated Exam Exam Vital Signs Date Time Temp Pulse Resp B/P (MAP) Pulse Ox O2 Delivery O2 Flow Rate FiO2 12/04/20 04:00 71 19 127/64 (85) 93 Room Air 12/04/20 04:00 95 Room Air 12/04/20 03:00 80 16 127/64 (85) 94 Room Air 12/04/20 02:00 88 25 135/103 (114) 94 Room Air 12/04/20 01:00 80 12/04/20 01:00 75 20 118/60 (79) 92 Room Air 12/04/20 00:00 90 22 122/90 (101) 92 Room Air 12/03/20 23:59 95 Room Air 12/03/20 23:00 81 25 135/70 (91) 93 Room Air 12/03/20 22:00 79 29 136/95 (109) 95 Room Air 12/03/20 21:00 79 24 120/70 (87) 92 Room Air 12/03/20 20:00 90 20 114/49 (70) 95 Room Air 12/03/20 20:00 95 Room Air 12/03/20 19:00 82 19 137/72 (93) 94 Room Air 12/03/20 19:00 80 12/03/20 18:50 81 11 134/76 (99) 92 Room Air 12/03/20 18:37 93 Room Air 12/03/20 18:19 76 17 113/95 (105) 93 Room Air 12/03/20 18:00 88 24 127/125 (125) 91 12/03/20 18:00 89 20 92 Room Air 12/03/20 17:00 78 19 126/70 (88) 94 Room Air 12/03/20 16:28 95 Room Air 12/03/20 16:00 36.6 12/03/20 16:00 77 19 125/71 (89) 93 Room Air 12/03/20 15:24 95 Room Air 12/03/20 15:00 132/109 (117) 12/03/20 14:00 98 17 116/105 (109) 93 Room Air 12/03/20 13:00 91 17 132/80 (97) 94 Room Air 12/03/20 12:58 91 12/03/20 12:00 77 18 135/67 (89) 93 Room Air 12/03/20 12:00 95 Room Air 12/03/20 11:47 36.8 12/03/20 11:00 86 22 129/69 (89) 93 Room Air 12/03/20 10:00 89 34 130/76 (94) 93 Room Air 12/03/20 09:00 88 19 117/77 (90) 93 Room Air 12/03/20 08:14 36.7 12/03/20 08:00 101 52 127/100 (109) 93 Room Air 12/03/20 08:00 95 Room Air 12/03/20 07:00 105 42 124/79 (94) 94 Room Air 12/03/20 06:57 93 12/03/20 06:00 87 10 136/70 (92) 93 Room Air I & O 12/04/20 07:00 Intake Total 450 ml Output Total 1350 ml Balance -900 ml Height & Weight Height: 5'8.00" Weight: 160lbs. 0.0oz. 72.413166an; 22.83 BMI Method:Stated General Appearance: No Apparent Distress, WD/WN HEENT: PERRL/EOMI, Pharynx Normal Neck: Normal Inspection, Supple Respiratory: Lungs Clear, Normal Breath Sounds, No Respiratory Distress Cardiovascular: Regular Rate, Rhythm, No Edema, No Murmur Capillary Refill: Less Than 3 Seconds Gastrointestinal: non tender, soft Extremity: Normal Inspection, Non Tender, No Pedal Edema Neurologic/Psychiatric: Alert, Oriented x3, Aphasia, Motor Weakness, Sensory De ficit Skin: Normal Color, Warm/Dry Lymphatic: No Adenopathy Results Lab Laboratory Tests 12/02/20 09:38 12/03/20 02:05 12/04/20 03:15 Assessment/Plan Assessment/Plan Acute CVA with left sided weakness -s/p TPA -Start antiplatlet 24hrs after TPA -Swallow eval pending -NIH was 10 on admission and is now 7 -PT/ot - echo -repeat CT head pending Once pt transfers out of unit I will sign off. Please call with any questions or concerns. CHRISTIANO AKERS DO December 04, 2020 05:11
--- NOTE | 2020-12-04 07:53 | Diagnostic Imaging Report ---
INDICATION: Dyspnea COMPARISON: 12/03/2020 FINDINGS: The lungs are hyperexpanded but clear. The heart size upper limits. No vascular congestion, effusion or pneumothorax. IMPRESSION: Clear hyperexpanded lungs. No focal infiltrate. Dictated by: Dictated on workstation # [id number]
[2020-12-04] MEDS ORDERED: lisINopril 40 MG (PRINIVIL) TABLET PO SCH (09:00)
[2020-12-04] MEDS: lisINopril 20 MG (PRINIVIL) TABLET PO SCH (09:17)
[2020-12-04] MEDS: D5 1/2 NS W/KCL 20 MEQ/L 1,000 ML IV SCH ×2 (09:17→21:32)
[2020-12-04] MEDS ORDERED: LORazepam INJ 2 MG/ML (ATIVAN) VIAL ONE (09:30)
[2020-12-04] MEDS: LORazepam INJ 2 MG/ML (ATIVAN) VIAL IVP PRN ×2 (09:38→20:33)
--- NOTE | 2020-12-04 10:54 | Physical Therapy Evaluation ---
PT Evaluation-General Medical Diagnosis Admission Date December 02, 2020 at 14:30 Medical Diagnosis: CVA Onset Date: December 02, 2020 Therapy Diagnosis Therapy Diagnosis: generalized weakness/debility Height/Weight Height (Feet): 5 Height (Inches): 8.00 Weight (Pounds): 160 Weight (Ounces): 0.0 Precautions Precautions/Isolations: Fall Prevention, Standard Precautions Referral Physician: Rudy Reason for Referral: Evaluation/Treatment Medical History Pertinent Medical History: Breast CA S/P Mastectomy, Smoking Current History EMS secondary to stroke like symptoms with left sided weakness (received TPA and is outside window with all scans complete) Reviewed History: Yes Social History Home: Apartment Current Living Status: Alone Entry Into Home: Level Entry Prior Prior Level of Function SCALE: Activities may be completed with or without assistive devices. 8-Kfzzykpgkt-hhbyntb completes the activity by him/herself with no assistance from a helper. 5-Set-up or Clean-up Assistance-helper sets up or cleans up; patient completes activity. [place] assists only prior to or following the activity. 4-Supervision or Touching Assistance-helper provides verbal cues and/or touching/steadying and/or contact guard assistance as patient completes activity. Assistance may be provided throughout the activity or intermittently. 3-Partial/Moderate Assistance-helper does LESS THAN HALF the effort. [place] lifts, holds or supports trunk or limbs, but provides less than half the effort. 2-Substantial/Maximal Assistance-helper does MORE THAN HALF the effort. [place] lifts or holds trunk or limbs and provides more than half the effort. 3-Gqlkbdwwt-cbwfiq does ALL the effort. Patient does none of the effort to complete the activity. Or, the assistance of 2 or more helpers is required for the patient to complete the activity. If activity was not attempted, code reason: 7-Patient Refused. 9-Not Applicable-not attempted and the patient did not perform the activity before the current illness, exacerbation or injury. 10-Not Attempted due to Environmental Limitations-(lack of equipment, weather restraints, etc.). 88-Not Attempted due to Medical Conditions or Safety Concerns. Bed Mobility: 6 Transfers (B,C,W/C): 6 Gait: 6 Indoor Mobility (Ambulation): Independent PT Evaluation-Current Subjective Patient bilateral LE hanging off side of bed. Objective Patient Orientation: Person, Time Attachments: Lane Catheter, IV ROM/Strength ROM Lower Extremities left LE rigid extension tone with no voluntary movement/right LE WFL Strength Lower Extremities left LE unable to formally test due to tone/right LE 3-/5 all planes grossly Integumentary/Posture Integumentary refer to nursing notes Bladder Incontinence: Lane Cath Posture WFL Neuromuscular (Tone, Coordination, Reflexes) severely diminished coordination left side all planes with noted ataxic movement right LE. Sensory Vision: Functional Hearing: Functional Transfers Roll Left to Right (QC): 1 Lying to Sitting/Side of Bed(Q: 1 Sit to Stand (QC): 1 Chair/Qjl-kg-Yohdf Xfer(QC): 1 Gait Does the Patient Walk?: No and Walking Goal IS indicated Balance Sitting Static: Poor Sitting Dynamic: Poor Standing Static: Poor Standing Dynamic: Poor Assessment/Needs 75 y.o. female, will benefit from skilled PT to address functional strength and mobility to improve current LOF. Patient PLMARKIE was independent and she lived alone. She is currently dependent with all mobility and unable to sit EOB or stand without dependent assist. 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 Maker Goals Correction Goals PT Correction Goals Time Frame: December 20, 2020 Roll Left & Right (QC): 3 Sit to Lying (QC): 3 Lying-Sitting on Side/Bed(QC): 3 Sit to Stand (QC): 3 Chair/Dbk-xr-Hhzcu Xfer(QC): 3 Toilet Transfer (QC): 3 Does the Patient Walk: Yes Walk 10 feet (QC): 2 Walk 50ft with 2 Turns (QC): 2 PT Plan Problem List Problem List: Activity Tolerance, Functional Strength, Safety, Balance, Gait, Transfer, Bed Mobility Treatment/Plan Treatment Plan: Continue Plan of Care Treatment Plan: Bed Mobility, Education, Functional Activity Helene, Functional Strength, Gait, Safety, Therapeutic Exercise, Transfers Treatment Duration: December 20, 2020 Frequency: 6 times per week Estimated Hrs Per Day: .5 hour per day Patient and/or Family Agrees t: Yes Time/GCodes Time In: 820 Time Out: 839 Total Billed Treatment Time: 19 Total [facility] AM[facility] December 04, 2020 10:54
[2020-12-04] MEDS: ENOXAPARIN 40 MG/0.4 ML (LOVENOX) SYR SC SCH (11:07)
[2020-12-04] MEDS: ASPIRIN E.C. 81 MG (ECOTRIN) TAB PO SCH (11:07)
[2020-12-04] MEDS: ACETAMINOPHEN 325 MG TABLET PO PRN (11:07)
--- NOTE | 2020-12-04 14:31 | Occupational Therapy Eval ---
OT Evaluation-General/PLF Medical Diagnosis Admission Date December 02, 2020 at 14:30 Medical Diagnosis: CVA/left sided weakness Onset Date: December 02, 2020 Therapy Diagnosis Therapy Diagnosis: Decreased ADL skills Height/Weight Height (Feet): 5 Height (Inches): 8.00 Weight (Pounds): 160 Weight (Ounces): 0.0 Precautions Precautions/Isolations: Fall Prevention, Standard Precautions, Pressure Ulcer Weight Bear Status Weight Bearing Restriction: Weight Bearing/Tolerated Referral Physician: Rudy Referral Reason: Activity Tolerance, Self Care, Evaluation/Treatment, Strengthening/ROM Medical History Pertinent Medical History: Breast CA S/P Mastectomy, Smoking Additional Medical History hysterectomy, smoker Reviewed History: Yes Social History Home: Apartment Current Living Status: Alone Entry Into Home: Level Entry ADL-Prior Level of Function SCALE: Activities may be completed with or without assistive devices. 4-Btxyrghhdv-gngmfma completes the activity by him/herself with no assistance from a helper. 5-Set-up or Clean-up Assistance-helper sets up or cleans up; patient completes activity. [place] assists only prior to or following the activity. 4-Supervision or Touching Assistance-helper provides verbal cues and/or touching/steadying and/or contact guard assistance as patient completes activity. Assistance may be provided throughout the activity or intermittently. 3-Partial/Moderate Assistance-helper does LESS THAN HALF the effort. [place] lifts, holds or supports trunk or limbs, but provides less than half the effort. 2-Substantial/Maximal Assistance-helper does MORE THAN HALF the effort. [place] lifts or holds trunk or limbs and provides more than half the effort. 0-Thsmqqikj-yzpuyo does ALL the effort. Patient does none of the effort to complete the activity. Or, the assistance of 2 or more helpers is required for the patient to complete the activity. If activity was not attempted, code reason: 7-Patient Refused. 9-Not Applicable-not attempted and the patient did not perform the activity before the current illness, exacerbation or injury. 10-Not Attempted due to Environmental Limitations-(lack of equipment, weather restraints, etc.). 88-Not Attempted due to Medical Conditions or Safety Concerns. ADL PLOF Comments Pt. able to report that she was independent with daily skills prior to this hospitalization. She does demonstrate slurred speech, and is difficult to fully understand. Self Care: Independent Functional Cognition: Independent OT Current Status Subjective Pt. does not report pain, but does become tearful at situation. Appearance Pt. in bed. She smiles and is pleasant. Pt. motivated to participate. Mental Status/Objective Patient Orientation: Person, Place Attachments: Lane Catheter, IV, Oxygen Current Upper Extremity ROM Right UE- WFL Left UE- impaired. Pt. unable to demonstrate ROM or movement. Upper Extremity Coordination left- impaired. Upper Extremity Sensation Pt. indicates that she is able to feel light touch on left UE, but further testing needs to be conducted. ADL-Treatment Eating (QC): 4 (SBA to feed self slightly melted ice cream. OT holds ice cream cup and pt. able to bring spoon to ice cream, and then to mouth. Pt. does have difficulty with oral control on left side, and so OT cleanses mouth/face several times.) On/Off Footwear (QC): 2 Toileting Hygiene (QC): 1 Other Treatments Pt. agrees to treatment. Pt. unable to bring left LE to side of bed, but is able to move right LE to side. Requires max assist for supine-sit. Pt. has difficulty with upright sitting balance, and leans heavy to left side. Pt. does demonstrate spatial awareness, and does understand that she isn't balanced. Pt. able to scoot with mod assist to EOB. Attempted to assess vision, but pt. has difficulty keeping head positioned for assessment. Requires min/mod assist for s itting balance during dynamic task of cleansing self. Pt. is able to wash chest and part of left UE. OT cleanses all other parts. OT assists pt. to stand with max assist while another person cleanses [place] area. Pt. is able to brush hair on EOB, but OT goes over more thoroughly. No pain noted in left UE. No subluxation. Pt. transfers sit-supine with mod assist. Pt. able to roll with assist for positioning. Pt. reports feeling comfortable. All needs met. Education OT Patient Education: Correct positioning, Modified ADL techniques, Progress toward Goal/Update tx plan, Purpose of tx/functional activities, Reviewed precautions, Rehab process, Transfer techniques Teaching Recipient: Patient Teaching Methods: Demonstration, Discussion Response to Teaching: Verbalize Understanding, Return Demonstration OT Short Term Goals Short Term Goals Time Frame: December 18, 2020 Eatin Oral hygiene: 3 Toileting hygiene: 3 Shower/bathe self: 3 Upper body dressin Lower body dressin Putting on/taking off footwear: 3 OT Aluminum Boat Assembly Supervisor Goals Usp Goals Time Frame: Jan 01, 2021 Eating (QC): 5 Oral Hygiene (QC): 5 Toileting Hygiene (QC): 4 Shower/Bathe Self (QC): 4 Upper Body Dressing (QC): 4 Lower Body Dressing (QC): 4 On/Off Footwear (QC): 5 Additional Goals: 1-Demonstrate ADL Tasks, 2-Verbalize Understanding, 3- ImproveStrength/Helene 1=Demonstrate adherence to instructed precautions during ADL tasks. 2=Patient will verbalize/demonstrate understanding of assistive devices/modifications for ADL. 3=Patient will improve strength/tolerance for activity to enable patient to perform ADL's. OT Education/Plan Problem List/Assessment Assessment: Decreased Activ Tolerance, Decreased UE Strength, Dependent Transfers, Impaired Bed Mobility, Impaired Coordination, Impaired Funct Balance, Impaired I ADL's, Impaired Self-Care Skills, Restricted Funct UE ROM Discharge Recommendations Plan/Recommendations: Continue POC Therapy Discharge Recommendati: Post Acute OT Treatment Plan/Plan of Care Treatment,Training & Education: Yes Patient would benefit from OT for education, treatment and training to promote independence in ADL's, mobility, safety and/or upper extremity function for ADL's. Plan of Care: ADL Retraining, Caregiver Training, Functional Mobility, UE Funct Exercise/Act, UE Neuromus Re-Ed/Coord, Visual/Perceptual Retrain Treatment Duration: Jan 01, 2021 Frequency: 5 times per week Estimated Hrs Per Day: .25 hour per day Agreement: Yes Rehab Potential: Fair Time/GCodes Start Time: 13:50 Stop Time: 14:15 Total Time Billed (hr/min): 25 Billed Treatment Time 1, EVH x 10minutes, ADL x 15minutes MIGUEL CARRIZALES OT December 04, 2020 14:31
[2020-12-04 16:00] VITALS: BP 130/73
[2020-12-04 20:00] VITALS: BP 130/65
--- NOTE | 2020-12-04 20:12 | Progress Note ---
Subjective Subjective/Events-last exam Patient comfortable this AM. Still having slurred speech and LE weakness. Denies any pain. Review of Systems General: No Fatigue, No Malaise Pulmonary: No Dyspnea, No Cough Cardiovascular: No: Chest Pain, Palpitations, Edema Gastrointestinal: No: Nausea, Vomiting, Abdominal Pain, Diarrhea, Constipation Musculoskeletal: arm pain, back pain Neurological: Weakness, Numbness, Incoordination, Confusion Objective Exam Last Set of Vital Signs Vital Signs Date Time Temp Pulse Resp B/P (MAP) Pulse Ox O2 Delivery O2 Flow Rate FiO2 12/04/20 16:00 36.3 80 18 130/73 (92) 96 Room Air Capillary Refill : Less Than 3 Seconds I&O Intake and Output 12/04/20 00:00 Intake Total 350 ml Output Total 1480 ml Balance -1130 ml Intake Oral 350 ml Output Urine Total 1480 ml General: Alert, No Acute Distress Lungs: Clear to Auscultation, Normal Air Movement Heart: Regular Rate, No Murmurs Abdomen: Normal Bowel Sounds, Soft, No Tenderness, No Masses Extremities: No Edema, No Tenderness/Swelling Neuro: Other (Left extremity flaccid paralysis, decreased sensation in VERONICA and LL extermity) Results/Procedures Lab Laboratory Tests 12/04/20 03:15: White Blood Count 7.6, Red Blood Count 3.86, Hemoglobin 11.4L, Hematocrit 35, Mean Corpuscular Volume 90, Mean Corpuscular Hemoglobin 30, Mean Corpuscular Hemoglobin Concent 33, Red Cell Distribution Width 13.5, Platelet Count 244, Mean Platelet Volume 9.8, Immature Granulocyte % (Auto) 0, Neutrophils (%) (Auto) 66, Lymphocytes (%) (Auto) 24, Monocytes (%) (Auto) 8, Eosinophils (%) (Auto) 2, Basophils (%) (Auto) 1, Neutrophils # (Auto) 5.0, Lymphocytes # (Auto) 1.8, Monocytes # (Auto) 0.6, Eosinophils # (Auto) 0.1, Basophils # (Auto) 0.1, Immature Granulocyte # (Auto) 0.0, Sodium Level 139, Potassium Level 3.9, Chloride Level 109H, Carbon Dioxide Level 24, Anion Gap 6, Blood Urea Nitrogen 11, Creatinine 0.76, Estimat Glomerular Filtration Rate > 60, BUN/Creatinine Ratio 14, Glucose Level 128H, Calcium Level 8.4L, Phosphorus Level 2.1L, Magnesium Level 2.0 Assessment/Plan Assessment/Plan (1) Acute CVA (cerebrovascular accident) Status: Acute Assessment & Plan: 12/04: Repeat CT unchanged, PT/OT/Speech, IRF consult pending (2) HTN (hypertension) Status: Acute Assessment & Plan: - Continue meds Qualifiers: Qualified Codes: I10 - Essential (primary) hypertension (3) HLD (hyperlipidemia) Status: Acute Assessment & Plan: - Statin (4) DVT prophylaxis Assessment & Plan: - Started on Lovenox 24 hrs post tPA Clinical Quality Measures Stroke: Date of last known well: December 01, 2020 Time of last known well: 22:00 Symptoms onset unknown: Yes WILMER ESCAMILLA MD December 04, 2020 20:12
[2020-12-04] MEDS: MELATONIN 3 MG TABLET PO SCH (20:33)
--- NOTE | 2020-12-04 20:33 | Physician Query Clarification ---
Physician Query-General Query to Physician: The medical record reflects the following clinical evidence: Clinical Indicators: Echo showing diastolic dysfunction, Risk Factor(s): Hypertension, vascular disease, HDL Treatment: Lisinopril, hydralazine, I and O monitoring 1. Unspecified diastolic (congestive) heart failure 2. Other explanation of clinical findings 3. Unable to determine (no explanation for clinical findings) Please clarify and document your clinical opinion in the progress notes and discharge summary including the definitive and/or presumptive diagnosis, (suspected or probable), related to the above clinical findings. Please include clinical findings supporting your diagnosis. Emelia Lee [phone] PHYSICIAN RESPONSE: Based on the clinical findings in the record, please respond to the query above on this document as an addendum. Physician Response: Physician Response Unspecified If you have questions please contact: [employer]: Ext: Thank you for your time and cooperation. Clinical Ground Crewman/[employer] This is a permanent part of the medical record EMELIA LEE December 04, 2020 20:33 LISSETT BROOKS MD December 09, 2020 09:56
[2020-12-04 23:20] VITALS: BP 119/66
[2020-12-05 03:50] VITALS: BP 115/55
[2020-12-05 05:47] LABS: BASOPHILS # (AUTO) 0.1 10^3/uL (0.0-0.1); BASOPHILS % (AUTO) 1 % (0-10); EOSINOPHILS # (AUTO) 0.2 10^3/uL (0.0-0.3); EOSINOPHILS % (AUTO) 3 % (0-10); HEMATOCRIT 37 % (35-52); HEMOGLOBIN 12.1 g/dL (11.5-16.0); LYMPHOCYTES # (AUTO) 1.7 10^3/uL (1.0-4.0); LYMPHOCYTES % (AUTO) 26 % (12-44); MEAN CORPUSCULAR HEMOGLOBIN 30 pg (25-34); MEAN CORPUSCULAR HGB CONC 33 g/dL (32-36); MEAN CORPUSCULAR VOLUME 91 fL (80-99); MEAN PLATELET VOLUME 10.2 fL (9.0-12.2); MONOCYTES # (AUTO) 0.6 10^3/uL (0.0-1.0); MONOCYTES % (AUTO) 8 % (0-12); NEUTROPHILS # (AUTO) 4.1 10^3/uL (1.8-7.8); NEUTROPHILS % (AUTO) 62 % (42-75); PLATELET COUNT 247 10^3/uL (130-400); WHITE BLOOD COUNT 6.6 10^3/uL (4.3-11.0)
[2020-12-05 05:59] LABS: CHLORIDE 108 MMOL/L (98-107); POTASSIUM 3.7 MMOL/L (3.6-5.0); SODIUM 141 MMOL/L (135-145)
[2020-12-05 06:01] LABS: GLUCOSE 107 MG/DL (70-105)
[2020-12-05 06:03] LABS: CARBON DIOXIDE 25 MMOL/L (21-32)
[2020-12-05 06:05] LABS: GFR ESTIMATED > 60; PHOSPHORUS 3.1 MG/DL (2.3-4.7)
[2020-12-05 06:06] LABS: BUN/CREATININE RATIO 14
[2020-12-05 08:00] VITALS: BP 132/78
--- NOTE | 2020-12-05 08:57 | Physical Therapy Daily Note ---
PT Daily Note-Current Subjective Patient in bed and agrees to PT. Mental Status Patient Orientation: Person, Time, Situation Attachments: Lane Catheter, IV Transfers SCALE: Activities may be completed with or without assistive devices. 9-Xwgsvfzrjo-vqbrtlg completes the activity by him/herself with no assistance from a helper. 5-Set-up or Clean-up Assistance-helper sets up or cleans up; patient completes activity. [place] assists only prior to or following the activity. 4-Supervision or Touching Assistance-helper provides verbal cues and/or touching/steadying and/or contact guard assistance as patient completes activity. Assistance may be provided throughout the activity or intermittently. 3-Partial/Moderate Assistance-helper does LESS THAN HALF the effort. [place] lifts, holds or supports trunk or limbs, but provides less than half the effort. 2-Substantial/Maximal Assistance-helper does MORE THAN HALF the effort. [place] lifts or holds trunk or limbs and provides more than half the effort. 9-Wngwgjhbo-mmcdgu does ALL the effort. Patient does none of the effort to complete the activity. Or, the assistance of 2 or more helpers is required for the patient to complete the activity. If activity was not attempted, code reason: 7-Patient Refused. 9-Not Applicable-not attempted and the patient did not perform the activity before the current illness, exacerbation or injury. 10-Not Attempted due to Environmental Limitations-(lack of equipment, weather restraints, etc.). 88-Not Attempted due to Medical Conditions or Safety Concerns. Roll Left & Right (QC): 1 Lying to Sitting/Side of Bed(Q: 1 (Patient unable to maintain sitting EOB without assistance with noted ataxia and retropulsion) Sit to Stand (QC): 1 (left knee blocked ) Chair/Vfs-wi-Nunmz Xfer(QC): 1 (severe lean to left with dependent assist of PT with left knee blocking) Exercises Supine Ex: Ankle pumps, Heel Slides, Straight leg raise Supine Reps: 15 (PROM left LE due to increase extension tone) Seated Therapy Exercises: Ankle pumps, Long arc quads Seated Reps: 15 (PROM left LE with noted extension tone) Assessment Patient up in recliner with chair alarm activated. Left UE and LE extension tone. Poor sitting and standing balance with blocking of left LE to allow safe transfer bed to chair (gait belt use). Severe left lean to left in sit and sta nd with difficulty sitting EOB without assistance due to ataxia. PT Halfway Goals Halfway Goals PT Pocket Secretary Assembler Goals Time Frame: December 20, 2020 Roll Left & Right (QC): 3 Sit to Lying (QC): 3 Lying-Sitting on Side/Bed(QC): 3 Sit to Stand (QC): 3 Chair/Xri-zb-Djjeo Xfer(QC): 3 Toilet Transfer (QC): 3 Does the Patient Walk: Yes Walk 10 feet (QC): 2 Walk 50ft with 2 Turns (QC): 2 PT Plan Treatment/Plan Treatment Plan: Continue Plan of Care Treatment Plan: Bed Mobility, Education, Functional Activity Helene, Functional Strength, Gait, Safety, Therapeutic Exercise, Transfers Treatment Duration: December 20, 2020 Frequency: 6 times per week Estimated Hrs Per Day: .5 hour per day Patient and/or Family Agrees t: Yes Discharge Recommendations Therapy Discharge Recommendati: Other, See Comments (custodial facility for prolonged recovery) Time/GCodes Time In: 750 Time Out: 813 Total Billed Treatment Time: 23 Total Billed Treatment 1 visit EX 14 min FA 9 min AMBIKA CHEEMA PT December 05, 2020 08:57
[2020-12-05] MEDS: ASPIRIN E.C. 81 MG (ECOTRIN) TAB PO SCH (09:27)
[2020-12-05] MEDS: lisINopril 20 MG (PRINIVIL) TABLET PO SCH (09:27)
[2020-12-05] MEDS: D5 1/2 NS W/KCL 20 MEQ/L 1,000 ML IV SCH (10:30)
[2020-12-05] MEDS: ENOXAPARIN 40 MG/0.4 ML (LOVENOX) SYR SC SCH (10:54)
[2020-12-05 12:22] VITALS: BP 127/68
[2020-12-05] MEDS: LORazepam INJ 2 MG/ML (ATIVAN) VIAL IVP PRN (12:26)
--- NOTE | 2020-12-05 14:16 | Progress Note ---
Subjective Subjective/Events-last exam Patient feeling better this AM. Still having slurred speech and left extremity flaccid paralysis Review of Systems Pulmonary: No Dyspnea, No Cough Cardiovascular: No: Chest Pain, Palpitations Gastrointestinal: No: Nausea, Vomiting, Abdominal Pain Neurological: Weakness, Numbness, Incoordination Objective Exam Last Set of Vital Signs Vital Signs Date Time Temp Pulse Resp B/P (MAP) Pulse Ox O2 Delivery O2 Flow Rate FiO2 12/05/20 12:22 36.6 80 20 127/68 (87) 97 Room Air Capillary Refill : Less Than 3 Seconds I&O Intake and Output 12/05/20 00:00 Intake Total 2670 ml Output Total 3050 ml Balance -380 ml Intake Oral 1670 ml IV Total 1000 ml Output Urine Total 3050 ml General: Alert, Oriented X3, No Acute Distress Lungs: Clear to Auscultation, Normal Air Movement Heart: Regular Rate, No Murmurs Abdomen: Normal Bowel Sounds, Soft, No Tenderness, No Masses Extremities: No Edema, No Tenderness/Swelling Neuro: Other (Slurred speech, flaccid paralysis on LUE and LLE, sensation intact) Results/Procedures Lab Laboratory Tests 12/05/20 05:03: White Blood Count 6.6, Red Blood Count 4.07, Hemoglobin 12.1, Hematocrit 37, Mean Corpuscular Volume 91, Mean Corpuscular Hemoglobin 30, Mean Corpuscular Hemoglobin Concent 33, Red Cell Distribution Width 13.5, Platelet Count 247, Mean Platelet Volume 10.2, Immature Granulocyte % (Auto) 1, Neutrophils (%) (Auto) 62, Lymphocytes (%) (Auto) 26, Monocytes (%) (Auto) 8, Eosinophils (%) (Auto) 3, Basophils (%) (Auto) 1, Neutrophils # (Auto) 4.1, Lymphocytes # (Auto) 1.7, Monocytes # (Auto) 0.6, Eosinophils # (Auto) 0.2, Basophils # (Auto) 0.1, Immature Granulocyte # (Auto) 0.0, Sodium Level 141, Potassium Level 3.7, Chloride Level 108H, Carbon Dioxide Level 25, Anion Gap 8, Blood Urea Nitrogen 10, Creatinine 0.70, Estimat Glomerular Filtration Rate > 60, BUN/Creatinine Ratio 14, Glucose Level 107H, Calcium Level 9.0, Phosphorus Level 3.1, Magnesium Level 2.0 Assessment/Plan Assessment/Plan (1) Acute CVA (cerebrovascular accident) Status: Acute Assessment & Plan: 12/04: Repeat CT unchanged, PT/OT/Speech, IRF consult pending 12/05: IRF consulted, continue ASA and Statin (2) HTN (hypertension) Status: Acute Assessment & Plan: - Continue meds Qualifiers: Qualified Codes: I10 - Essential (primary) hypertension (3) HLD (hyperlipidemia) Status: Acute Assessment & Plan: - Statin (4) DVT prophylaxis Assessment & Plan: - Started on Lovenox 24 hrs post tPA Clinical Quality Measures Stroke: Date of last known well: December 01, 2020 Time of last known well: 22:00 Symptoms onset unknown: Yes WILMER ESCAMILLA MD December 05, 2020 14:16
--- NOTE | 2020-12-05 14:32 | Occupational Ther Daily Note ---
OT Current Status-Daily Note Subjective Pt laying in bed, agreeable to OT tx, son present at start of tx. Mental Status/Objective Patient Orientation: Person, Place, Situation Attachments: IV ADL-Treatment Therapy Code Descriptions/Definitions Functional [place] Measure: 0=Not Assessed/NA 4=Minimal Assistance 1=Total Assistance 5=Supervision or Setup 2=Maximal Assistance 6=Modified [place] 3=Moderate Assistance 7=Complete IndependenceSCALE: Activities may be completed with or without assistive devices. 6-Qnujlybyca-udgqmni completes the activity by him/herself with no assistance from a helper. 5-Set-up or Clean-up Assistance-helper sets up or cleans up; patient completes activity. [place] assists only prior to or following the activity. 4-Supervision or Touching Assistance-helper provides verbal cues and/or touching/steadying and/or contact guard assistance as patient completes activity. Assistance may be provided throughout the activity or intermittently. 3-Partial/Moderate Assistance-helper does LESS THAN HALF the effort. [place] lifts, holds or supports trunk or limbs, but provides less than half the effort. 2-Substantial/Maximal Assistance-helper does MORE THAN HALF the effort. [place] lifts or holds trunk or limbs and provides more than half the effort. 6-Yohvrvbet-zgozuy does ALL the effort. Patient does none of the effort to complete the activity. Or, the assistance of 2 or more helpers is required for the patient to complete the activity. If activity was not attempted, code reason: 7-Patient Refused. 9-Not Applicable-not attempted and the patient did not perform the activity before the current illness, exacerbation or injury. 10-Not Attempted due to Environmental Limitations-(lack of equipment, weather restraints, etc.). 88-Not Attempted due to Medical Conditions or Safety Concerns. Shower/Bathe Self (QC): 3 (Mod A) Upper Body Dressing (QC): 2 (Max A to change hospital gown) On/Off Footwear: 2 (Pt able to doff RLE gripper sock, assist with threading sock over toes then pt able to don. Total assist LLE gripper sock.) Other Treatment Pt laying in bed, son present. Pt agreeable to OT Tx with focus on ADLs. Pt's son left and sponge bath complete. Pt able to remove RLE gripper sock and wash RLE and periarea. Assist to wash LLE. Pt then washed LUE as OT held arm in air for pt. No AROM in LUE at this time. Assist to wash RUE. Pt washed chest/abdomen, then min A to roll towards L side using side rail, pt able to wash buttocks. Clean hospital gown donned, assist with LUE and assist with RUE due to IV in R arm. A couple times during tx, pt put RLE off side of bed and pulled up on R side rail in attempt to get out of bed. OT turned on bed alarm and notified nursing staff. Post tx, pt laying in bed, call light in reach and all needs met, bed alarm on. Education OT Patient Education: Correct positioning, Modified ADL techniques, Progress toward Goal/Update tx plan, Purpose of tx/functional activities Teaching Recipient: Patient Teaching Methods: Discussion Response to Teaching: Verbalize Understanding OT Short Term Goals Short Term Goals Time Frame: December 18, 2020 Eatin Oral hygiene: 3 Toileting hygiene: 3 Shower/bathe self: 3 Upper body dressin Lower body dressin Putting on/taking off footwear: 3 OT Assisted Goals Garbage Truck Helper Goals Time Frame: Jan 01, 2021 Eating (QC): 5 Oral Hygiene (QC): 5 Toileting Hygiene (QC): 4 Shower/Bathe Self (QC): 4 Upper Body Dressing (QC): 4 Lower Body Dressing (QC): 4 On/Off Footwear (QC): 5 Additional Goals: 1-Demonstrate ADL Tasks, 2-Verbalize Understanding, 3- ImproveStrength/Helene 1=Demonstrate adherence to instructed precautions during ADL tasks. 2=Patient will verbalize/demonstrate understanding of assistive devices/modifications for ADL. 3=Patient will improve strength/tolerance for activity to enable patient to perform ADL's. OT Education/Plan Problem List/Assessment Assessment: Decreased Activ Tolerance, Decreased Safety Aware, Decreased UE Strength, Impaired Bed Mobility, Impaired Funct Balance, Impaired I ADL's, Impaired Self-Care Skills, Restricted Funct UE ROM Discharge Recommendations Plan/Recommendations: Continue POC Treatment Plan/Plan of Care Patient would benefit from OT for education, treatment and training to promote independence in ADL's, mobility, safety and/or upper extremity function for ADL's. Plan of Care: ADL Retraining, Caregiver Training, Functional Mobility, UE Funct Exercise/Act, UE Neuromus Re-Ed/Coord, Visual/Perceptual Retrain Treatment Duration: Jan 01, 2021 Frequency: 5 times per week Estimated Hrs Per Day: .25 hour per day Agreement: Yes Rehab Potential: Fair Time/GCodes Start Time: 13:41 Stop Time: 14:08 Total Time Billed (hr/min): 27 Billed Treatment Time 1, ADL 2 JOHN ROSAS OT December 05, 2020 14:32
[2020-12-05 16:00] VITALS: BP 116/73
[2020-12-05 19:28] VITALS: BP 133/67
[2020-12-05] MEDS: ZOLPIDEM 5 MG (AMBIEN) TAB PO PRN (20:24)
[2020-12-05] MEDS: DOCUSATE SODIUM 100 MG (COLACE) CAP PO SCH (20:24)
[2020-12-05] MEDS: MELATONIN 3 MG TABLET PO SCH (20:24)
[2020-12-06] MEDS: D5 1/2 NS W/KCL 20 MEQ/L 1,000 ML IV SCH ×2 (00:15→12:35)
[2020-12-06 00:17] VITALS: BP 122/73
[2020-12-06 03:47] LABS: BASOPHILS # (AUTO) 0.1 10^3/uL (0.0-0.1); BASOPHILS % (AUTO) 1 % (0-10); EOSINOPHILS # (AUTO) 0.3 10^3/uL (0.0-0.3); EOSINOPHILS % (AUTO) 4 % (0-10); HEMATOCRIT 36 % (35-52); HEMOGLOBIN 11.8 g/dL (11.5-16.0); LYMPHOCYTES % (AUTO) 29 % (12-44); MEAN CORPUSCULAR HEMOGLOBIN 29 pg (25-34); MEAN CORPUSCULAR HGB CONC 33 g/dL (32-36); MEAN CORPUSCULAR VOLUME 90 fL (80-99); MONOCYTES # (AUTO) 0.6 10^3/uL (0.0-1.0); MONOCYTES % (AUTO) 8 % (0-12); NEUTROPHILS % (AUTO) 58 % (42-75); PLATELET COUNT 278 10^3/uL (130-400); WHITE BLOOD COUNT 6.9 10^3/uL (4.3-11.0)
[2020-12-06 03:51] LABS: CHLORIDE 108 MMOL/L (98-107); POTASSIUM 4.2 MMOL/L (3.6-5.0); SODIUM 141 MMOL/L (135-145)
[2020-12-06 03:52] LABS: GLUCOSE 109 MG/DL (70-105)
[2020-12-06 03:54] LABS: CARBON DIOXIDE 25 MMOL/L (21-32)
[2020-12-06 03:56] LABS: GFR ESTIMATED > 60; PHOSPHORUS 3.7 MG/DL (2.3-4.7)
[2020-12-06 03:57] LABS: BUN/CREATININE RATIO 17
[2020-12-06 03:59] LABS: MAGNESIUM 1.9 MG/DL (1.6-2.4)
[2020-12-06 04:42] VITALS: BP 124/68
[2020-12-06 08:00] VITALS: BP 153/69
[2020-12-06] MEDS: ASPIRIN E.C. 81 MG (ECOTRIN) TAB PO SCH (09:14)
[2020-12-06] MEDS: NICOTINE 14 MG (NICODERM) PATCH TD SCH (09:14)
[2020-12-06] MEDS: lisINopril 20 MG (PRINIVIL) TABLET PO SCH (09:14)
[2020-12-06] MEDS: DOCUSATE SODIUM 100 MG (COLACE) CAP PO SCH ×2 (09:14→20:12)
[2020-12-06] MEDS: NICOTINE PATCH REMOVAL TP SCH (09:38)
--- NOTE | 2020-12-06 11:20 | Physical Therapy Daily Note ---
PT Daily Note-Current Subjective States that she didn't sleep well last night. Transfers SCALE: Activities may be completed with or without assistive devices. 9-Civzrmmhap-uxwedwa completes the activity by him/herself with no assistance from a helper. 5-Set-up or Clean-up Assistance-helper sets up or cleans up; patient completes activity. [place] assists only prior to or following the activity. 4-Supervision or Touching Assistance-helper provides verbal cues and/or touching/steadying and/or contact guard assistance as patient completes activity. Assistance may be provided throughout the activity or intermittently. 3-Partial/Moderate Assistance-helper does LESS THAN HALF the effort. [place] lifts, holds or supports trunk or limbs, but provides less than half the effort. 2-Substantial/Maximal Assistance-helper does MORE THAN HALF the effort. [place] lifts or holds trunk or limbs and provides more than half the effort. 7-Wwbrzeequ-supomv does ALL the effort. Patient does none of the effort to complete the activity. Or, the assistance of 2 or more helpers is required for the patient to complete the activity. If activity was not attempted, code reason: 7-Patient Refused. 9-Not Applicable-not attempted and the patient did not perform the activity before the current illness, exacerbation or injury. 10-Not Attempted due to Environmental Limitations-(lack of equipment, weather restraints, etc.). 88-Not Attempted due to Medical Conditions or Safety Concerns. Lying to Sitting/Side of Bed(Q: 3 Sit to Stand (QC): 3 Chair/Xhi-re-Qcjhg Xfer(QC): 3 Assessment Current Status: Good Progress Patient did much better with transfers today. PT Fish Tender Goals Mcc Goals PT Mcc Goals Time Frame: December 20, 2020 Roll Left & Right (QC): 3 Sit to Lying (QC): 3 Lying-Sitting on Side/Bed(QC): 3 Sit to Stand (QC): 3 Chair/Hkr-fj-Gagsw Xfer(QC): 3 Toilet Transfer (QC): 3 Does the Patient Walk: Yes Walk 10 feet (QC): 2 Walk 50ft with 2 Turns (QC): 2 PT Plan Treatment/Plan Treatment Plan: Continue Plan of Care Treatment Plan: Bed Mobility, Education, Functional Activity Helene, Functional Strength, Gait, Safety, Therapeutic Exercise, Transfers Treatment Duration: December 20, 2020 Frequency: 6 times per week Estimated Hrs Per Day: .5 hour per day Patient and/or Family Agrees t: Yes Time/GCodes Time In: 1105 Time Out: 1115 Total Billed Treatment Time: 10 Total Billed Treatment 1, FA x 10' SHALINI LEAL PT December 06, 2020 11:20
[2020-12-06] MEDS ORDERED: LORazepam 0.5 MG (ATIVAN) TABLET PO PRN (11:30)
[2020-12-06] MEDS ORDERED: BISACODYL 10 MG SUPP (DULCOLAX) PR ONE (11:30)
--- NOTE | 2020-12-06 11:34 | Progress Note - Hospitalist ---
Subjective HPI/CC On Admission Date Seen by Provider: December 06, 2020 Time Seen by Provider: 10:15 Juliet Fernandez is a 75 year old female with no known past medical history who presented with left sided weakness and slurred speech. She had been feeling normal until about 10 pm the night before her admission. She reports numbness and tingling on her left side. She denies headache and vision changes. She denies fevers and chills. She denies shortness of breath and cough. She denies chest pain and palpitations. She denies abdominal pain, nausea, vomiting, and diarrhea. She denies dysuria. Subjective/Events-last exam Patient is having some trouble with constipation and family notes that she is getting a little depressed. Patient is frustrated with her left sided weakness but her dysarthria is improving and she actually dorsiflexes and plantar flexes her foot when she is not awake. Review of Systems Gastrointestinal: Constipation Neurological: Weakness Objective Exam Vital Signs Vital Signs Date Time Temp Pulse Resp B/P (MAP) Pulse Ox O2 Delivery O2 Flow Rate FiO2 12/06/20 08:00 35.9 70 20 153/69 (97) 92 Room Air Capillary Refill : Less Than 3 Seconds General Appearance: WD/WN Neck: Non Tender, Supple Respiratory: Lungs Clear, Normal Breath Sounds, No Accessory Muscle Use, No Respiratory Distress Cardiovascular: Regular Rate, Rhythm, No Edema, No Gallop, No JVD, No Murmur, Normal Peripheral Pulses Gastrointestinal: Normal Bowel Sounds, Non Tender, Soft Back: Normal Inspection Neurologic/Psychiatric: Alert, Facial Droop (Left), Motor Weakness (Left upper and lower remedies) Skin: Warm/Dry Results/Procedures Lab Laboratory Tests 12/06/20 03:28 Patient resulted labs reviewed. Imaging: Reviewed Imaging Report Assessment/Plan Assessment and Plan Assess & Plan/Chief Complaint Left CVA, ischemic presumably secondary to carotid artery disease as this appears to be the only etiology. Echo with bubble study was negative. CT and MRI were unrevealing Constipation will use Dulcolax Post CVA depression we will start Celexa Tobaccoism currently curtailed Diagnosis/Problems Diagnosis/Problems (1) Acute CVA (cerebrovascular accident) Status: Acute (2) Depressed Status: Acute Qualifiers: Major depression recurrence: single episode (3) Constipation Qualifiers: Constipation type: slow transit constipation Qualified Codes: K59.01 - Slow transit constipation Clinical Quality Measures Stroke: Date of last known well: December 01, 2020 Time of last known well: 22:00 Symptoms onset unknown: Yes LISSETT BROOKS MD December 06, 2020 11:34
[2020-12-06 12:00] VITALS: BP 135/76
[2020-12-06] MEDS: ENOXAPARIN 40 MG/0.4 ML (LOVENOX) SYR SC SCH (12:28)
[2020-12-06 16:21] VITALS: BP 144/66
[2020-12-06] MEDS: polyethylene glycoL POWDER 17 GM (MIRALAX) PACK PO SCH (19:52)
[2020-12-06] MEDS: MELATONIN 3 MG TABLET PO SCH (20:13)
[2020-12-06 20:26] VITALS: BP 133/72
[2020-12-07] VITALS (8 sets, daily range): BP systolic 111–162; BP diastolic 55–75
[2020-12-07] MEDS: ZOLPIDEM 5 MG (AMBIEN) TAB PO PRN (02:07)
[2020-12-07] MEDS: D5 1/2 NS W/KCL 20 MEQ/L 1,000 ML IV SCH (02:58)
[2020-12-07 04:03] LABS: BASOPHILS % (AUTO) 1 % (0-10); EOSINOPHILS # (AUTO) 0.1 10^3/uL (0.0-0.3); EOSINOPHILS % (AUTO) 1 % (0-10); HEMATOCRIT 34 % (35-52); HEMOGLOBIN 11.3 g/dL (11.5-16.0); LYMPHOCYTES # (AUTO) 1.7 10^3/uL (1.0-4.0); LYMPHOCYTES % (AUTO) 21 % (12-44); MEAN CORPUSCULAR HEMOGLOBIN 30 pg (25-34); MEAN CORPUSCULAR HGB CONC 33 g/dL (32-36); MEAN CORPUSCULAR VOLUME 90 fL (80-99); MONOCYTES # (AUTO) 0.5 10^3/uL (0.0-1.0); MONOCYTES % (AUTO) 7 % (0-12); NEUTROPHILS # (AUTO) 5.4 10^3/uL (1.8-7.8); NEUTROPHILS % (AUTO) 70 % (42-75); PLATELET COUNT 269 10^3/uL (130-400); WHITE BLOOD COUNT 7.7 10^3/uL (4.3-11.0)
[2020-12-07 04:12] LABS: CHLORIDE 107 MMOL/L (98-107); POTASSIUM 4.2 MMOL/L (3.6-5.0); SODIUM 140 MMOL/L (135-145)
[2020-12-07 04:13] LABS: CALCIUM 8.9 MG/DL (8.5-10.1)
[2020-12-07 04:14] LABS: GLUCOSE 119 MG/DL (70-105)
[2020-12-07 04:15] LABS: CARBON DIOXIDE 26 MMOL/L (21-32)
[2020-12-07 04:17] LABS: CREATININE SERUM 0.69 MG/DL (0.60-1.30); GFR ESTIMATED > 60; PHOSPHORUS 4.2 MG/DL (2.3-4.7)
[2020-12-07 04:18] LABS: BUN/CREATININE RATIO 17
[2020-12-07 04:20] LABS: MAGNESIUM 1.8 MG/DL (1.6-2.4)
[2020-12-07] MEDS: ASPIRIN E.C. 81 MG (ECOTRIN) TAB PO SCH (08:40)
[2020-12-07] MEDS: DOCUSATE SODIUM 100 MG (COLACE) CAP PO SCH ×2 (08:41→20:34)
[2020-12-07] MEDS: lisINopril 20 MG (PRINIVIL) TABLET PO SCH (08:41)
[2020-12-07] MEDS: NICOTINE PATCH REMOVAL TP SCH (08:49)
[2020-12-07] MEDS: NICOTINE 14 MG (NICODERM) PATCH TD SCH (08:50)
[2020-12-07] MEDS: ENOXAPARIN 40 MG/0.4 ML (LOVENOX) SYR SC SCH (11:28)
[2020-12-07] MEDS ORDERED: ONDANSETRON 4 MG (ZOFRAN) ORAL DISSOLVE TAB PO PRN (12:45)
--- NOTE | 2020-12-07 13:03 | Progress Note - Hospitalist ---
Subjective HPI/CC On Admission Date Seen by Provider: December 07, 2020 Time Seen by Provider: 11:45 Juliet Fernandez is a 75 year old female with no known past medical history who presented with left sided weakness and slurred speech. She had been feeling normal until about 10 pm the night before her admission. She reports numbness and tingling on her left side. She denies headache and vision changes. She denies fevers and chills. She denies shortness of breath and cough. She denies chest pain and palpitations. She denies abdominal pain, nausea, vomiting, and diarrhea. She denies dysuria. Subjective/Events-last exam Patient complains of nausea ever since she had some pork this morning. Blood pressures a little elevated. She is not interested in eating lunch. Her bowels moved yesterday. Review of Systems Gastrointestinal: Nausea Objective Exam Vital Signs Vital Signs Date Time Temp Pulse Resp B/P (MAP) Pulse Ox O2 Delivery O2 Flow Rate FiO2 12/07/20 12:12 36.5 82 18 160/74 (102) 91 Room Air Capillary Refill : Less Than 3 Seconds General Appearance: No Apparent Distress, Other (Facial droop) Neck: Supple Respiratory: Lungs Clear, Normal Breath Sounds, No Accessory Muscle Use, No Respiratory Distress Cardiovascular: Regular Rate, Rhythm, No Edema, No Gallop, No JVD, Normal Peripheral Pulses Gastrointestinal: Normal Bowel Sounds, Non Tender, Soft Rectal: Deferred Extremity: Normal Capillary Refill, Non Tender, No Pedal Edema Results/Procedures Lab Laboratory Tests 12/07/20 03:42 Patient resulted labs reviewed. Imaging: Reviewed Imaging Report Assessment/Plan Assessment and Plan Assess & Plan/Chief Complaint Left CVA, ischemic presumably secondary to carotid artery disease as this appears to be the only etiology. Echo with bubble study was negative. CT and MRI were unrevealing-plan for rehab on Tuesday Constipation will use Dulcolax Post CVA depression we will start Celexa Tobaccoism currently curtailed Nausea we will use Zofran as needed Diagnosis/Problems Diagnosis/Problems (1) Acute CVA (cerebrovascular accident) Status: Acute (2) Depressed Status: Acute Qualifiers: Major depression recurrence: single episode (3) Constipation Qualifiers: Constipation type: slow transit constipation Qualified Codes: K59.01 - Slow transit constipation Clinical Quality Measures Stroke: Date of last known well: December 01, 2020 Time of last known well: 22:00 Symptoms onset unknown: Yes LISSETT BROOKS MD December 07, 2020 13:03
[2020-12-07] MEDS: ACETAMINOPHEN 325 MG TABLET PO PRN (13:59)
[2020-12-07] MEDS: polyethylene glycoL POWDER 17 GM (MIRALAX) PACK PO SCH (20:34)
[2020-12-07] MEDS: MELATONIN 3 MG TABLET PO SCH (20:34)
[2020-12-08] MEDS: ACETAMINOPHEN 325 MG TABLET PO PRN (01:36)
[2020-12-08 04:17] VITALS: BP 144/65
[2020-12-08 05:15] LABS: BASOPHILS % (AUTO) 0 % (0-10); EOSINOPHILS # (AUTO) 0.1 10^3/uL (0.0-0.3); EOSINOPHILS % (AUTO) 1 % (0-10); HEMATOCRIT 39 % (35-52); HEMOGLOBIN 12.7 g/dL (11.5-16.0); LYMPHOCYTES # (AUTO) 1.6 10^3/uL (1.0-4.0); LYMPHOCYTES % (AUTO) 16 % (12-44); MEAN CORPUSCULAR HEMOGLOBIN 29 pg (25-34); MEAN CORPUSCULAR HGB CONC 33 g/dL (32-36); MEAN CORPUSCULAR VOLUME 90 fL (80-99); MEAN PLATELET VOLUME 9.8 fL (9.0-12.2); MONOCYTES # (AUTO) 0.6 10^3/uL (0.0-1.0); MONOCYTES % (AUTO) 6 % (0-12); NEUTROPHILS # (AUTO) 7.5 10^3/uL (1.8-7.8); NEUTROPHILS % (AUTO) 77 % (42-75); PLATELET COUNT 331 10^3/uL (130-400); WHITE BLOOD COUNT 9.8 10^3/uL (4.3-11.0)
[2020-12-08 05:28] LABS: CHLORIDE 105 MMOL/L (98-107); POTASSIUM 4.6 MMOL/L (3.6-5.0); SODIUM 139 MMOL/L (135-145)
[2020-12-08 05:29] LABS: CALCIUM 9.5 MG/DL (8.5-10.1)
[2020-12-08 05:30] LABS: GLUCOSE 109 MG/DL (70-105)
[2020-12-08 05:31] LABS: CARBON DIOXIDE 23 MMOL/L (21-32)
[2020-12-08 05:33] LABS: PHOSPHORUS 3.6 MG/DL (2.3-4.7)
[2020-12-08 05:34] LABS: CREATININE SERUM 0.77 MG/DL (0.60-1.30); GFR ESTIMATED > 60
[2020-12-08 05:35] LABS: BUN/CREATININE RATIO 21
[2020-12-08 05:36] LABS: MAGNESIUM 1.9 MG/DL (1.6-2.4)
[2020-12-08 08:00] VITALS: BP 113/57
[2020-12-08] MEDS: DOCUSATE SODIUM 100 MG (COLACE) CAP PO SCH ×2 (09:07→19:59)
[2020-12-08] MEDS: lisINopril 20 MG (PRINIVIL) TABLET PO SCH (09:07)
[2020-12-08] MEDS: NICOTINE PATCH REMOVAL TP SCH (09:07)
[2020-12-08] MEDS: NICOTINE 14 MG (NICODERM) PATCH TD SCH (09:07)
[2020-12-08] MEDS: ASPIRIN E.C. 81 MG (ECOTRIN) TAB PO SCH (09:07)
--- NOTE | 2020-12-08 09:40 | Physical Therapy Daily Note ---
PT Daily Note-Current Subjective Patient agrees to PT. Mental Status Patient Orientation: Person, Time, Situation Transfers SCALE: Activities may be completed with or without assistive devices. 9-Dpdmfjpciz-ybevfsc completes the activity by him/herself with no assistance from a helper. 5-Set-up or Clean-up Assistance-helper sets up or cleans up; patient completes activity. [place] assists only prior to or following the activity. 4-Supervision or Touching Assistance-helper provides verbal cues and/or touching/steadying and/or contact guard assistance as patient completes activity. Assistance may be provided throughout the activity or intermittently. 3-Partial/Moderate Assistance-helper does LESS THAN HALF the effort. [place] lifts, holds or supports trunk or limbs, but provides less than half the effort. 2-Substantial/Maximal Assistance-helper does MORE THAN HALF the effort. [place] lifts or holds trunk or limbs and provides more than half the effort. 6-Bsoxrzsyy-rkrsaz does ALL the effort. Patient does none of the effort to c omplete the activity. Or, the assistance of 2 or more helpers is required for the patient to complete the activity. If activity was not attempted, code reason: 7-Patient Refused. 9-Not Applicable-not attempted and the patient did not perform the activity before the current illness, exacerbation or injury. 10-Not Attempted due to Environmental Limitations-(lack of equipment, weather restraints, etc.). 88-Not Attempted due to Medical Conditions or Safety Concerns. Lying to Sitting/Side of Bed(Q: 2 Sit to Stand (QC): 2 (with severe left lean with left LE crossing midline) Chair/Lqk-zu-Dfehc Xfer(QC): 2 (severe left lean with left LE crossing midline (scissor gait)) Toilet Transfer (QC): 2 (with severe left lean with left LE crossing midline) Gait Training Distance: 10' Walk 10 feet (QC): 2 (with severe left lean with left LE crossing midline (scissor gait)) Walk 50 ft with 2 Turns(QC): 88 Walk 150 ft (QC): 88 Gait Assistive Device: Walker Platform (left) Patient presents with poor balance in stand with platform FWW (left) with noted extensor tone left LE with severely diminished proprioception/severe left lean with scissor gait sequence with left LE Exercises Supine Ex: Ankle pumps, Heel Slides, Straight leg raise Supine Reps: 12 Seated Therapy Exercises: Ankle pumps, Long arc quads, Hip flexion Seated Reps: 12 Assessment Patient is up in recliner with breakfast in situ. PT to increase activity as tolerated by patient. Slow progress on this date. PT Die Mounter Goals Longterm Goals PT Die Mounter Goals Time Frame: December 20, 2020 Roll Left & Right (QC): 3 Sit to Lying (QC): 3 Lying-Sitting on Side/Bed(QC): 3 Sit to Stand (QC): 3 Chair/Hnk-rt-Syxsi Xfer(QC): 3 Toilet Transfer (QC): 3 Does the Patient Walk: Yes Walk 10 feet (QC): 2 Walk 50ft with 2 Turns (QC): 2 PT Plan Treatment/Plan Treatment Plan: Continue Plan of Care Treatment Plan: Bed Mobility, Education, Functional Activity Helene, Functional Strength, Gait, Safety, Therapeutic Exercise, Transfers Treatment Duration: December 20, 2020 Frequency: 6 times per week Estimated Hrs Per Day: .5 hour per day Patient and/or Family Agrees t: Yes Time/GCodes Time In: 757 Time Out: 31829 Total Billed Treatment Time: 23 Total Billed Treatment 1 visit EX 10 min FA 13 min AMBIKA CHEEMA PT December 08, 2020 09:40
--- NOTE | 2020-12-08 10:23 | Progress Note - Hospitalist ---
Subjective HPI/CC On Admission Date Seen by Provider: December 08, 2020 Time Seen by Provider: 09:40 Juliet Fernandez is a 75 year old female with no known past medical history who presented with left sided weakness and slurred speech. She had been feeling normal until about 10 pm the night before her admission. She reports numbness and tingling on her left side. She denies headache and vision changes. She denies fevers and chills. She denies shortness of breath and cough. She denies chest pain and palpitations. She denies abdominal pain, nausea, vomiting, and diarrhea. She denies dysuria. Subjective/Events-last exam Pt doing pretty well Trying to quit smoking Subtle confusion noted Awaiting rehab insurance approval Checked meds and labs Bowels are moving she reports Catheter was removed and she is able to void well Review of Systems General: Fatigue, Malaise Neurological: Weakness, Incoordination Objective Exam Vital Signs Vital Signs Date Time Temp Pulse Resp B/P (MAP) Pulse Ox O2 Delivery O2 Flow Rate FiO2 12/09/20 04:29 35.8 70 18 142/75 (97) 91 Room Air Capillary Refill : Less Than 3 Seconds General Appearance: No Apparent Distress, WD/WN, Chronically ill, Thin Respiratory: Lungs Clear Cardiovascular: Regular Rate, Rhythm Neurologic/Psychiatric: Alert, Oriented x3, Disoriented, Motor Weakness (left sided) Results/Procedures Lab Patient resulted labs reviewed. Imaging: Reviewed Imaging Report Assessment/Plan Assessment and Plan Assess & Plan/Chief Complaint Assessment: CVA w/left sided flaccidity Carotid artery disease Smoker Constipation Plan: Monitor closely Statin ASA PT OT IRF Clinical Quality Measures Stroke: Date of last known well: December 01, 2020 Time of last known well: 22:00 Symptoms onset unknown: Yes MOHIT BOYKIN DO December 08, 2020 10:23
[2020-12-08] MEDS: ENOXAPARIN 40 MG/0.4 ML (LOVENOX) SYR SC SCH (10:52)
[2020-12-08 11:42] VITALS: BP 111/53
[2020-12-08 15:49] VITALS: BP 130/60
--- NOTE | 2020-12-08 16:02 | Occupational Ther Daily Note ---
OT Current Status-Daily Note Subjective Pt laying in bed, son present. Pt agreeable to OT tx with focus on ADLs with minimal encouragement. Pt states she is tired and would like to take a nap Mental Status/Objective Patient Orientation: Person, Place, Situation ADL-Treatment Therapy Code Descriptions/Definitions Functional [place] Measure: 0=Not Assessed/NA 4=Minimal Assistance 1=Total Assistance 5=Supervision or Setup 2=Maximal Assistance 6=Modified [place] 3=Moderate Assistance 7=Complete IndependenceSCALE: Activities may be completed with or without assistive devices. 2-Zoureqkglz-xmzxual completes the activity by him/herself with no assistance from a helper. 5-Set-up or Clean-up Assistance-helper sets up or cleans up; patient completes activity. [place] assists only prior to or following the activity. 4-Supervision or Touching Assistance-helper provides verbal cues and/or touching/steadying and/or contact guard assistance as patient completes activity. Assistance may be provided throughout the activity or intermittently. 3-Partial/Moderate Assistance-helper does LESS THAN HALF the effort. [place] lifts, holds or supports trunk or limbs, but provides less than half the effort. 2-Substantial/Maximal Assistance-helper does MORE THAN HALF the effort. [place] lifts or holds trunk or limbs and provides more than half the effort. 2-Inxtgmmbq-okoctn does ALL the effort. Patient does none of the effort to complete the activity. Or, the assistance of 2 or more helpers is required for the patient to complete the activity. If activity was not attempted, code reason: 7-Patient Refused. 9-Not Applicable-not attempted and the patient did not perform the activity before the current illness, exacerbation or injury. 10-Not Attempted due to Environmental Limitations-(lack of equipment, weather restraints, etc.). 88-Not Attempted due to Medical Conditions or Safety Concerns. Oral Hygiene (QC): 3 (Min A with applying fixodent to dentures.) Toileting Hygiene (QC): 1 (Assist x2, pt able to complete hygiene seated on commode) Toilet Transfer (QC): 1 (Assist x2 SPT to/from BSC and bed.) Other Treatment Pt laying in bed, applied fixodent to dentures with min A, washed face with set up assist, and min A with hair brushing due to tangles on back of head. Pt states need to toilet. Pt transferred supine to sit EOB, assist with LLE and trunk. Assist x2 SPT to BSC towards R side, pt assisted with managing pants down on R side. Pt completed toileting and hygiene seated on BSC. Assist x2 in stand for pant hike, SPT back to bed. OT assisted with raising LLE into bed and positioning pt to comfort. Post tx, pt laying in bed, call light in reach and all needs met. Education OT Patient Education: Correct positioning, Modified ADL techniques, Progress toward Goal/Update tx plan, Purpose of tx/functional activities, Rehab process, Transfer techniques Teaching Recipient: Patient Teaching Methods: Discussion Response to Teaching: Verbalize Understanding OT Short Term Goals Short Term Goals Time Frame: December 18, 2020 Eatin Oral hygiene: 3 Toileting hygiene: 3 Shower/bathe self: 3 Upper body dressin Lower body dressin Putting on/taking off footwear: 3 OT Group Home Goals Tube Handler Goals Time Frame: Jan 01, 2021 Eating (QC): 5 Oral Hygiene (QC): 5 Toileting Hygiene (QC): 4 Shower/Bathe Self (QC): 4 Upper Body Dressing (QC): 4 Lower Body Dressing (QC): 4 On/Off Footwear (QC): 5 Additional Goals: 1-Demonstrate ADL Tasks, 2-Verbalize Understanding, 3- ImproveStrength/Helene 1=Demonstrate adherence to instructed precautions during ADL tasks. 2=Patient will verbalize/demonstrate understanding of assistive devices/modifications for ADL. 3=Patient will improve strength/tolerance for activity to enable patient to perform ADL's. OT Education/Plan Problem List/Assessment Assessment: Decreased Activ Tolerance, Decreased UE Strength, Dependent Transf ers, Impaired Bed Mobility, Impaired Funct Balance, Impaired I ADL's, Impaired Self-Care Skills, Restricted Funct UE ROM Discharge Recommendations Plan/Recommendations: Continue POC Treatment Plan/Plan of Care Patient would benefit from OT for education, treatment and training to promote independence in ADL's, mobility, safety and/or upper extremity function for ADL's. Plan of Care: ADL Retraining, Caregiver Training, Functional Mobility, UE Funct Exercise/Act, UE Neuromus Re-Ed/Coord, Visual/Perceptual Retrain Treatment Duration: Jan 01, 2021 Frequency: 5 times per week Estimated Hrs Per Day: .25 hour per day Agreement: Yes Rehab Potential: Fair Time/GCodes Start Time: 15:18 Stop Time: 15:48 Total Time Billed (hr/min): 30 Billed Treatment Time 1, ADL 2 JOHN ROSAS OT December 08, 2020 16:02
[2020-12-08] MEDS: NYSTATIN ORAL SUSP 5 ML UDC PO SCH ×2 (17:57→20:33)
[2020-12-08 19:50] VITALS: BP 129/64
[2020-12-08] MEDS: polyethylene glycoL POWDER 17 GM (MIRALAX) PACK PO SCH (20:00)
[2020-12-08] MEDS: MELATONIN 3 MG TABLET PO SCH (20:33)
[2020-12-08] MEDS: ZOLPIDEM 5 MG (AMBIEN) TAB PO PRN (20:33)
[2020-12-09 00:48] VITALS: BP 123/67
[2020-12-09 04:29] VITALS: BP 142/75
[2020-12-09 05:47] LABS: BASOPHILS # (AUTO) 0.1 10^3/uL (0.0-0.1); BASOPHILS % (AUTO) 1 % (0-10); EOSINOPHILS # (AUTO) 0.2 10^3/uL (0.0-0.3); EOSINOPHILS % (AUTO) 3 % (0-10); HEMATOCRIT 37 % (35-52); HEMOGLOBIN 12.1 g/dL (11.5-16.0); LYMPHOCYTES # (AUTO) 1.8 10^3/uL (1.0-4.0); LYMPHOCYTES % (AUTO) 28 % (12-44); MEAN CORPUSCULAR HEMOGLOBIN 30 pg (25-34); MEAN CORPUSCULAR HGB CONC 33 g/dL (32-36); MEAN CORPUSCULAR VOLUME 90 fL (80-99); MEAN PLATELET VOLUME 9.8 fL (9.0-12.2); MONOCYTES # (AUTO) 0.5 10^3/uL (0.0-1.0); MONOCYTES % (AUTO) 8 % (0-12); NEUTROPHILS # (AUTO) 3.9 10^3/uL (1.8-7.8); NEUTROPHILS % (AUTO) 60 % (42-75); PLATELET COUNT 304 10^3/uL (130-400); WHITE BLOOD COUNT 6.5 10^3/uL (4.3-11.0)
[2020-12-09 06:11] LABS: ALBUMIN 3.7 GM/DL (3.2-4.5)
[2020-12-09 06:12] LABS: CHLORIDE 104 MMOL/L (98-107); POTASSIUM 4.2 MMOL/L (3.6-5.0); SODIUM 139 MMOL/L (135-145)
[2020-12-09 06:13] LABS: CALCIUM 9.3 MG/DL (8.5-10.1)
[2020-12-09 06:14] LABS: GLUCOSE 101 MG/DL (70-105); TOTAL PROTEIN 6.7 GM/DL (6.4-8.2)
[2020-12-09 06:15] LABS: CARBON DIOXIDE 28 MMOL/L (21-32)
[2020-12-09 06:16] LABS: BILIRUBIN,TOTAL 0.8 MG/DL (0.1-1.0)
[2020-12-09 06:18] LABS: ALKALINE PHOSPHATASE 58 U/L (40-136); CREATININE SERUM 0.77 MG/DL (0.60-1.30); GFR ESTIMATED > 60
[2020-12-09 06:19] LABS: BUN/CREATININE RATIO 27
[2020-12-09 06:21] LABS: ALANINE AMINOTRANSFERASE 34 U/L (0-55); MAGNESIUM 1.9 MG/DL (1.6-2.4)
--- NOTE | 2020-12-09 07:04 | Progress Note - Hospitalist ---
Subjective HPI/CC On Admission Date Seen by Provider: December 09, 2020 Time Seen by Provider: 09:00 Juliet Fernandez is a 75 year old female with no known past medical history who presented with left sided weakness and slurred speech. She had been feeling normal until about 10 pm the night before her admission. She reports numbness and tingling on her left side. She denies headache and vision changes. She denies fevers and chills. She denies shortness of breath and cough. She denies chest pain and palpitations. She denies abdominal pain, nausea, vomiting, and diarrhea. She denies dysuria. Subjective/Events-last exam Pt doing really well Awaiting rehab placement Insurance has been submitted for approval Denies any new issues Review of Systems General: Fatigue, Malaise Neurological: Weakness, Incoordination Objective Exam Vital Signs Vital Signs Date Time Temp Pulse Resp B/P (MAP) Pulse Ox O2 Delivery O2 Flow Rate FiO2 12/10/20 04:00 36.4 73 17 115/53 (73) 95 Room Air Capillary Refill : Less Than 3 Seconds General Appearance: No Apparent Distress, WD/WN, Chronically ill, Thin Respiratory: Lungs Clear Cardiovascular: Regular Rate, Rhythm Neurologic/Psychiatric: Alert, Oriented x3 Results/Procedures Lab Laboratory Tests 12/09/20 05:30 Patient resulted labs reviewed. Imaging: Reviewed Imaging Report Assessment/Plan Assessment and Plan Assess & Plan/Chief Complaint Assessment: CVA w/left sided flaccidity Carotid artery disease Smoker Constipation Plan: Monitor closely Statin ASA PT OT IRF 12/09/20: Awaiting IRF Continue treatment Clinical Quality Measures Stroke: Date of last known well: December 01, 2020 Time of last known well: 22:00 Symptoms onset unknown: Yes MOHIT BOYKIN DO December 09, 2020 07:04
[2020-12-09 08:00] VITALS: BP 140/96
[2020-12-09] MEDS: CYANOCOBALAMIN 1,000 MCG (VITAMIN B-12) TABLET PO SCH (08:00)
[2020-12-09] MEDS: MULTIVIT W/MINERALS TAB (THERAGRAN M) PO SCH (08:00)
[2020-12-09] MEDS: DOCUSATE SODIUM 100 MG (COLACE) CAP PO SCH ×2 (08:01→20:38)
[2020-12-09] MEDS: ASPIRIN E.C. 81 MG (ECOTRIN) TAB PO SCH (08:01)
[2020-12-09] MEDS: NYSTATIN ORAL SUSP 5 ML UDC PO SCH ×4 (08:01→20:42)
[2020-12-09] MEDS: lisINopril 20 MG (PRINIVIL) TABLET PO SCH (08:01)
[2020-12-09] MEDS: NICOTINE 14 MG (NICODERM) PATCH TD SCH (08:01)
[2020-12-09] MEDS: CALCIUM CARBONATE 600 MG (CALCARB) TAB PO SCH (08:01)
[2020-12-09] MEDS: NICOTINE PATCH REMOVAL TP SCH (08:02)
--- NOTE | 2020-12-09 08:25 | ST Dysphagia Evaluation ---
Speech Evaluation-General Medical Diagnosis CVA/left sided weakness Onset Date: December 02, 2020 Therapy Diagnosis Therapy Diagnosis: Oropharyngeal Dysphagia Precautions Precautions: Aspiration Precautions/Isolations: Aspiration Referral Referring Physician: Dr. Feng Medical History Pertinent Medical History: Breast CA S/P Mastectomy, Smoking Reviewed History: Yes Social History Current Living Status: Alone Speech PLF/Current-Dysphagia Prior Level of Function Patient lives home alone where she was independent with her daily needs. She states she ate anything she wanted. Subjective Patient was pleasant and cooperative with the Bedside Dysphagia Evaluation. Cognitive Status Patient Orientation: Person, Place, Situation, Normal For Age Oral Motor Skills Denture Type: Full- Upper & Lower Current Food Consistancy: Pureed Ability to Follow Directions: Good Oral Expression Ability: No Impairment Voice Voice Phonatory-Based Quality: Normal Voice Pitch: Normal Voice Loudness: Normal Face Facial Symmetry: Symmetrical Oral-Facial Assessment Oral-Facial Dentition: Normal Lingual Protrusion: Normal Lingual ROM: Normal Lingual Strength: Normal Pharynx Velopharyngeal Move.: Normal Volitional Dry Swallow: Yes Voluntary Cough: Yes Can Clear Throat Volitionally: Yes Dysphagia Evaluation Consistencies Presented: Regular, Mechanical Soft, Pureed Oral phase is within normal range of function for mechanical soft. She does exhibit slight difficulty with bolus management of the regular consistency. Pharyngeal Phase: Decreased A/P Bolus Transit Pharyngeal phase is within normal range of function for mechanical soft. She does exhibit slight delay for swallow onset of the regular consistency. Dietary Recommendations: Mechanical Soft Liquid Recommendations: Thin Swallowing Precautions: Alternate Liquids/Solids, Double Swallow, Decreased Bolus 1/2 Tsp, Liquids from Cup, Liquids from Straw, Small Bites and Sips, Sitting Upright 90 Degrees, Sitting 90 Degrees 30 Post Intake Dysphagia Evaluation Summary Patient is a pleasant 75 y/o female who was admitted to the ICU s/p CVA with left sided weakness. The patient was evaluated at bedside at that time and was placed on a Dysphagia I diet with thin liquids. At that time the patient was much weaker and was edentulous. She was referred for a f/u BDE due to significant improvement and with her dentures. Patient completed the BDE this morning with puree, mechanical soft and regular consistencies. No problem was noted with the puree or mechanical soft, however she continues to have mild bolus management difficulty with the regular. She is recommended for an upgrade to Dysphagia II with thin. This information was provided to her nurse, Kate and written on the white board in her room. Barriers to Learning Oral phase is within normal range of function for mechanical soft. She does exhibit slight difficulty with bolus management of the regular consistency. Speech-Plan Patient/Family Goals Patient/Family Goals: Patient plans on returning to her home where she lives alone if she is able to. Treatment Plan Speech Therapy Treatment Plan: Discontinue ST Treatment Duration: December 09, 2020 Frequency: 1 time per week Estimated Hrs Per Day: .25 hour per day Rehab Potential: Fair Barriers to Learning: Patient's recent CVA and left sided weakness Pt/Family Agrees to Plan: Yes Safety Risks/Education Teaching Methods: Demonstration, Discussion Response to Teaching: Verbalize Understanding, Return Demonstration Education Topics Provided: Continued safety with oral intake, diet level Time Speech Therapy Time In: 08:05 Speech Therapy Time Out: 08:25 Total Billed Time: 20 Billed Treatment Time 1, BENNY MOLINA B[address] ST December 09, 2020 08:25
[2020-12-09] MEDS ORDERED: NON-FORMULARY MEDICATION 1 EA EA (Multivits-Min/Iron/FA/Lutein (Centrum Silver Women Table PO SCH (09:00)
[2020-12-09] MEDS ORDERED: NON-FORMULARY MEDICATION 1 EA EA (Cyanocobalamin (Vitamin B-12) (Vitamin B-12) 500 MCG) PO SCH (09:00)
--- NOTE | 2020-12-09 09:38 | Physical Therapy Daily Note ---
PT Daily Note-Current Subjective Patient agrees to PT. Mental Status Patient Orientation: Person, Time, Situation Transfers SCALE: Activities may be completed with or without assistive devices. 0-Khdrgcoojd-wosqqzp completes the activity by him/herself with no assistance from a helper. 5-Set-up or Clean-up Assistance-helper sets up or cleans up; patient completes activity. [place] assists only prior to or following the activity. 4-Supervision or Touching Assistance-helper provides verbal cues and/or touching/steadying and/or contact guard assistance as patient completes activity. Assistance may be provided throughout the activity or intermittently. 3-Partial/Moderate Assistance-helper does LESS THAN HALF the effort. [place] lifts, holds or supports trunk or limbs, but provides less than half the effort. 2-Substantial/Maximal Assistance-helper does MORE THAN HALF the effort. [place] lifts or holds trunk or limbs and provides more than half the effort. 3-Ebptwdvgt-udcndx does ALL the effort. Patient does none of the effort to c omplete the activity. Or, the assistance of 2 or more helpers is required for the patient to complete the activity. If activity was not attempted, code reason: 7-Patient Refused. 9-Not Applicable-not attempted and the patient did not perform the activity before the current illness, exacerbation or injury. 10-Not Attempted due to Environmental Limitations-(lack of equipment, weather restraints, etc.). 88-Not Attempted due to Medical Conditions or Safety Concerns. Lying to Sitting/Side of Bed(Q: 3 Sit to Stand (QC): 2 (severe left lean with PT correct) Chair/Kbx-sz-Nmghh Xfer(QC): 2 (left lean with left LE crossing midline with PT correct) Gait Training Distance: 10' x 2 Walk 10 feet (QC): 2 Gait Assistive Device: Walker Platform (left) Patient appears to neglect left UE with left platform FWW use and is impulsive to sit to recliner with noted decreased safety awareness and PT giving 100% skilled VC's during gait training. Exercises Seated Therapy Exercises: Long arc quads, Hip flexion Seated Reps: 15 Assessment Patient up in recliner with ST present to assess advancement of diet. PT to increase activity as tolerated patient. Very slow progress noted PT Detention Goals Detention Goals PT Traffic Signal Technician Goals Time Frame: December 20, 2020 Roll Left & Right (QC): 3 Sit to Lying (QC): 3 Lying-Sitting on Side/Bed(QC): 3 Sit to Stand (QC): 3 Chair/Sof-sj-Amaig Xfer(QC): 3 Toilet Transfer (QC): 3 Does the Patient Walk: Yes Walk 10 feet (QC): 2 Walk 50ft with 2 Turns (QC): 2 PT Plan Treatment/Plan Treatment Plan: Continue Plan of Care Treatment Plan: Bed Mobility, Education, Functional Activity Helene, Functional Strength, Gait, Safety, Therapeutic Exercise, Transfers Treatment Duration: December 20, 2020 Frequency: 6 times per week Estimated Hrs Per Day: .5 hour per day Patient and/or Family Agrees t: Yes Time/GCodes Time In: 750 Time Out: 805 Total Billed Treatment Time: 15 Total Billed Treatment 1 visit FA 15 min AMBIKA CHEEMA PT December 09, 2020 09:37
[2020-12-09 11:05] VITALS: BP 135/63
[2020-12-09] MEDS: ENOXAPARIN 40 MG/0.4 ML (LOVENOX) SYR SC SCH (11:06)
--- NOTE | 2020-12-09 12:25 | Physician Query Clarification ---
Physician Query-General Query to Physician: Dr. Esquivel: Thank you for your previous response but it was not completely clear if you agree with option 1, 2 or 3. Do you mind further clarifying your answer to this clarification The medical record reflects the following clinical evidence: Clinical Indicators: Echo showing diastolic dysfunction, Risk Factor(s): Hypertension, vascular disease, HDL Treatment: Lisinopril, hydralazine, I and O monitoring 1. Unspecified diastolic (congestive) heart failure 2. Other explanation of clinical findings 3. Unable to determine (no explanation for clinical findings) Please clarify and document your clinical opinion in the progress notes and discharge summary including the definitive and/or presumptive diagnosis, (suspected or probable), related to the above clinical findings. Please include clinical findings supporting your diagnosis. Emelia Lee [phone] PHYSICIAN RESPONSE: Based on the clinical findings in the record, please respond to the query above on this document as an addendum. Physician Response: Physician Response 1- If you have questions please contact: Functional Support Analyst: Ext: Thank you for your time and cooperation. Clinical Production Sanitizer/Functional Support Analyst This is a permanent part of the medical record EMELIA LEE December 09, 2020 12:25 LISSETT ESQUIVEL MD December 10, 2020 09:10
--- NOTE | 2020-12-09 15:47 | Occupational Ther Daily Note ---
OT Current Status-Daily Note Subjective No pain reported. Mental Status/Objective Patient Orientation: Person, Place, Time, Situation ADL-Treatment Therapy Code Descriptions/Definitions Functional [place] Measure: 0=Not Assessed/NA 4=Minimal Assistance 1=Total Assistance 5=Supervision or Setup 2=Maximal Assistance 6=Modified [place] 3=Moderate Assistance 7=Complete IndependenceSCALE: Activities may be completed with or without assistive devices. 5-Ncntkhvlms-atfirwy completes the activity by him/herself with no assistance from a helper. 5-Set-up or Clean-up Assistance-helper sets up or cleans up; patient completes activity. [place] assists only prior to or following the activity. 4-Supervision or Touching Assistance-helper provides verbal cues and/or touching/steadying and/or contact guard assistance as patient completes activity. Assistance may be provided throughout the activity or intermittently. 3-Partial/Moderate Assistance-helper does LESS THAN HALF the effort. [place] lifts, holds or supports trunk or limbs, but provides less than half the effort. 2-Substantial/Maximal Assistance-helper does MORE THAN HALF the effort. [place] lifts or holds trunk or limbs and provides more than half the effort. 7-Jocqunavr-uijqvm does ALL the effort. Patient does none of the effort to complete the activity. Or, the assistance of 2 or more helpers is required for the patient to complete the activity. If activity was not attempted, code reason: 7-Patient Refused. 9-Not Applicable-not attempted and the patient did not perform the activity before the current illness, exacerbation or injury. 10-Not Attempted due to Environmental Limitations-(lack of equipment, weather restraints, etc.). 88-Not Attempted due to Medical Conditions or Safety Concerns. Toileting Hygiene (QC): 1 Toilet Transfer (QC): 1 Other Treatment Pt. requires dependent assistance for stand pivot back to bed, and dependent assist for monroe care after having BM. After transferring to bed, pt. able to scoot to HOB, she transferred sit-supine with min assist. OT assisted her to position self to comfort level. OT completed gentle PROM to left UE in all planes. Noted increased AROM to elbow in flexion, extension, and finger flexion. Pt. tolerated treatment well. Left UE positioned to comfort level. All needs met. Education OT Patient Education: Correct positioning, Exercise program, Home exercise program, Modified ADL techniques, Progress toward Goal/Update tx plan, Purpose of tx/functional activities, Reviewed precautions, Rehab process, Transfer techniques Teaching Recipient: Patient Teaching Methods: Demonstration, Discussion Response to Teaching: Verbalize Understanding, Return Demonstration OT Short Term Goals Short Term Goals Time Frame: December 18, 2020 Eatin Oral hygiene: 3 Toileting hygiene: 3 Shower/bathe self: 3 Upper body dressin Lower body dressin Putting on/taking off footwear: 3 OT Water Main Inspector Goals Water Main Inspector Goals Time Frame: Jan 01, 2021 Eating (QC): 5 Oral Hygiene (QC): 5 Toileting Hygiene (QC): 4 Shower/Bathe Self (QC): 4 Upper Body Dressing (QC): 4 Lower Body Dressing (QC): 4 On/Off Footwear (QC): 5 Additional Goals: 1-Demonstrate ADL Tasks, 2-Verbalize Understanding, 3- ImproveStrength/Helene 1=Demonstrate adherence to instructed precautions during ADL tasks. 2=Patient will verbalize/demonstrate understanding of assistive devices/modifications for ADL. 3=Patient will improve strength/tolerance for activity to enable patient to perform ADL's. OT Education/Plan Problem List/Assessment Assessment: Decreased Activ Tolerance, Decreased UE Strength, Dependent Transfers, Impaired Funct Balance, Impaired I ADL's, Impaired Self-Care Skills, Restricted Funct UE ROM Discharge Recommendations Plan/Recommendations: Continue POC Therapy Discharge Recommendati: Post Acute OT Treatment Plan/Plan of Care Treatment,Training & Education: Yes Patient would benefit from OT for education, treatment and training to promote independence in ADL's, mobility, safety and/or upper extremity function for ADL's. Plan of Care: ADL Retraining, Caregiver Training, Functional Mobility, UE Funct Exercise/Act, UE Neuromus Re-Ed/Coord, Visual/Perceptual Retrain Treatment Duration: Jan 01, 2021 Frequency: 5 times per week Estimated Hrs Per Day: .25 hour per day Agreement: Yes Rehab Potential: Good Time/GCodes Start Time: 15:00 Stop Time: 15:15 Total Time Billed (hr/min): 15 Billed Treatment Time 1, ADL MIGUEL CARRIZALSE OT December 09, 2020 15:47
[2020-12-09 15:50] VITALS: BP 112/65
[2020-12-09 19:34] VITALS: BP 139/75
[2020-12-09] MEDS: polyethylene glycoL POWDER 17 GM (MIRALAX) PACK PO SCH (20:38)
[2020-12-09] MEDS: MELATONIN 3 MG TABLET PO SCH (20:42)
[2020-12-10] VITALS: BP 102/71
[2020-12-10 04:00] VITALS: BP 115/53
[2020-12-10 05:04] LABS: BASOPHILS # (AUTO) 0.1 10^3/uL (0.0-0.1); BASOPHILS % (AUTO) 1 % (0-10); EOSINOPHILS # (AUTO) 0.3 10^3/uL (0.0-0.3); EOSINOPHILS % (AUTO) 4 % (0-10); HEMATOCRIT 36 % (35-52); HEMOGLOBIN 11.9 g/dL (11.5-16.0); LYMPHOCYTES % (AUTO) 28 % (12-44); MEAN CORPUSCULAR HEMOGLOBIN 30 pg (25-34); MEAN CORPUSCULAR HGB CONC 33 g/dL (32-36); MEAN CORPUSCULAR VOLUME 90 fL (80-99); MEAN PLATELET VOLUME 10.3 fL (9.0-12.2); MONOCYTES # (AUTO) 0.6 10^3/uL (0.0-1.0); MONOCYTES % (AUTO) 8 % (0-12); NEUTROPHILS # (AUTO) 4.3 10^3/uL (1.8-7.8); NEUTROPHILS % (AUTO) 59 % (42-75); PLATELET COUNT 304 10^3/uL (130-400); WHITE BLOOD COUNT 7.2 10^3/uL (4.3-11.0)
[2020-12-10 05:17] LABS: CHLORIDE 104 MMOL/L (98-107); SODIUM 140 MMOL/L (135-145)
[2020-12-10 05:18] LABS: CALCIUM 9.3 MG/DL (8.5-10.1)
[2020-12-10 05:19] LABS: GLUCOSE 99 MG/DL (70-105)
[2020-12-10 05:20] LABS: CARBON DIOXIDE 26 MMOL/L (21-32)
[2020-12-10 05:22] LABS: PHOSPHORUS 3.3 MG/DL (2.3-4.7)
[2020-12-10 05:23] LABS: BUN/CREATININE RATIO 28; CREATININE SERUM 0.74 MG/DL (0.60-1.30); GFR ESTIMATED > 60
[2020-12-10 05:25] LABS: MAGNESIUM 1.8 MG/DL (1.6-2.4)
[2020-12-10] MEDS: NYSTATIN ORAL SUSP 5 ML UDC PO SCH ×2 (07:43→12:49)
[2020-12-10] MEDS: MULTIVIT W/MINERALS TAB (THERAGRAN M) PO SCH (07:43)
[2020-12-10] MEDS: CYANOCOBALAMIN 1,000 MCG (VITAMIN B-12) TABLET PO SCH (07:43)
[2020-12-10] MEDS: lisINopril 20 MG (PRINIVIL) TABLET PO SCH (07:43)
[2020-12-10] MEDS: DOCUSATE SODIUM 100 MG (COLACE) CAP PO SCH (07:44)
[2020-12-10] MEDS: NICOTINE PATCH REMOVAL TP SCH (07:44)
[2020-12-10] MEDS: NICOTINE 14 MG (NICODERM) PATCH TD SCH (07:44)
[2020-12-10] MEDS: ASPIRIN E.C. 81 MG (ECOTRIN) TAB PO SCH (07:44)
[2020-12-10] MEDS: ENOXAPARIN 40 MG/0.4 ML (LOVENOX) SYR SC SCH (07:44)
[2020-12-10] MEDS: CALCIUM CARBONATE 600 MG (CALCARB) TAB PO SCH (07:48)
[2020-12-10 08:00] VITALS: BP_SYST 136; BP_SYST 163; BP_DIAS 72; BP_DIAS 76
--- NOTE | 2020-12-10 09:28 | PM&R Progress Note ---
Subjective HPI/CC On Admission Date Seen by Provider: December 10, 2020 Juliet Fernandez is a 75 year old female with no known past medical history who presented with left sided weakness and slurred speech. She had been feeling normal until about 10 pm the night before her admission. She reports numbness and tingling on her left side. She denies headache and vision changes. She denies fevers and chills. She denies shortness of breath and cough. She denies chest pain and palpitations. She denies abdominal pain, nausea, vomiting, and diarrhea. She denies dysuria. Objective Exam Vital Signs Vital Signs Date Time Temp Pulse Resp B/P (MAP) Pulse Ox O2 Delivery O2 Flow Rate FiO2 12/10/20 08:00 36.4 91 18 136/76 (96) 96 Room Air Capillary Refill : Less Than 3 Seconds General Appearance: No Apparent Distress, WD/WN, Chronically ill, Thin HEENT: PERRL/EOMI, Pharynx Normal Neck: Supple Respiratory: Lungs Clear Cardiovascular: Regular Rate, Rhythm Gastrointestinal: Normal Bowel Sounds, Non Tender, Soft Rectal: Deferred Back: Normal Inspection Extremity: Normal Capillary Refill, Non Tender, No Pedal Edema Neurologic/Psychiatric: Alert, Oriented x3 Skin: Warm/Dry Lymphatic: No Adenopathy Results/Procedures Lab Laboratory Tests 12/10/20 04:33 Patient resulted labs reviewed. Imaging: Reviewed Imaging Report FIM Transfers Therapy Code Descriptions/Definitions Functional [place] Measure: 0=Not Assessed/NA 4=Minimal Assistance 1=Total Assistance 5=Supervision or Setup 2=Maximal Assistance 6=Modified [place] 3=Moderate Assistance 7=Complete IndependenceSCALE: Activities may be completed with or without assistive devices. 5-Bjkvfbrdni-nrsymed completes the activity by him/herself with no assistance from a helper. 5-Set-up or Clean-up Assistance-helper sets up or cleans up; patient completes activity. [place] assists only prior to or following the activity. 4-Supervision or Touching Assistance-helper provides verbal cues and/or touching/steadying and/or contact guard assistance as patient completes activity. Assistance may be provided throughout the activity or intermittently. 3-Partial/Moderate Assistance-helper does LESS THAN HALF the effort. [place] lifts, holds or supports trunk or limbs, but provides less than half the effort. 2-Substantial/Maximal Assistance-helper does MORE THAN HALF the effort. [place] lifts or holds trunk or limbs and provides more than half the effort. 8-Njsxfhquq-kbctuw does ALL the effort. Patient does none of the effort to complete the activity. Or, the assistance of 2 or more helpers is required for the patient to complete the activity. If activity was not attempted, code reason: 7-Patient Refused. 9-Not Applicable-not attempted and the patient did not perform the activity before the current illness, exacerbation or injury. 10-Not Attempted due to Environmental Limitations-(lack of equipment, weather restraints, etc.). 88-Not Attempted due to Medical Conditions or Safety Concerns. Roll Left to Right (QC): 1 Sit to Stand (QC): 2 (severe left lean with PT correct) Chair/Jzn-db-Ucxby Xfer(QC): 2 (left lean with left LE crossing midline with PT correct) Gait Training Does the Patient Walk?: No and Walking Goal IS indicated Distance: 10' x 2 Walk 10 feet (QC): 2 Walk 50 ft with 2 Turns(QC): 88 Walk 150 ft (QC): 88 Gait Assistive Device: Walker Platform (left) ADL-Treatment Eating (QC): 4 (SBA to feed self slightly melted ice cream. OT holds ice cream cup and pt. able to bring spoon to ice cream, and then to mouth. Pt. does have difficulty with oral control on left side, and so OT cleanses mouth/face several times.) Oral Hygiene (QC): 3 (Min A with applying fixodent to dentures.) Shower/Bathe Self (QC): 3 (Mod A) Upper Body Dressing (QC): 2 (Max A to change hospital gown) On/Off Footwear (QC): 2 (Pt able to doff RLE gripper sock, assist with threading sock over toes then pt able to don. Total assist LLE gripper sock.) Toileting Hygiene (QC): 1 Toilet Transfer (QC): 1 Assessment/Plan Assessment and Plan Assess & Plan/Chief Complaint Assessment: CVA w/left sided flaccidity Carotid artery disease Smoker Constipation Plan: Monitor closely Statin ASA PT OT IRF 12/09/20: Awaiting IRF Continue treatment (1) Acute CVA (cerebrovascular accident) Status: Acute (2) Depressed Status: Acute Qualifiers: Major depression recurrence: single episode (3) Constipation Qualifiers: Constipation type: slow transit constipation Qualified Codes: K59.01 - Slow transit constipation MOHIT BOYKIN DO December 10, 2020 09:28
--- NOTE | 2020-12-10 09:29 | Progress Note - Hospitalist ---
Subjective HPI/CC On Admission Date Seen by Provider: December 10, 2020 Juliet Fernadnez is a 75 year old female with no known past medical history who presented with left sided weakness and slurred speech. She had been feeling normal until about 10 pm the night before her admission. She reports numbness and tingling on her left side. She denies headache and vision changes. She denies fevers and chills. She denies shortness of breath and cough. She denies chest pain and palpitations. She denies abdominal pain, nausea, vomiting, and diarrhea. She denies dysuria. Objective Exam Vital Signs Vital Signs Date Time Temp Pulse Resp B/P (MAP) Pulse Ox O2 Delivery O2 Flow Rate FiO2 12/10/20 15:34 36.0 75 18 107/66 (80) 94 Room Air Capillary Refill : Less Than 3 Seconds Results/Procedures Lab Laboratory Tests 12/10/20 04:33 Patient resulted labs reviewed. Imaging: Reviewed Imaging Report Assessment/Plan Assessment and Plan Assess & Plan/Chief Complaint Assessment: CVA w/left sided flaccidity Carotid artery disease Smoker Constipation Plan: Monitor closely Statin ASA PT OT IRF 12/09/20: Awaiting IRF Continue treatment Clinical Quality Measures Stroke: Date of last known well: December 01, 2020 Time of last known well: 22:00 Symptoms onset unknown: Yes MOHIT BOYKIN DO December 10, 2020 09:29
[2020-12-10 12:00] VITALS: BP 163/72
--- NOTE | 2020-12-10 13:42 | Occupational Ther Daily Note ---
OT Current Status-Daily Note Subjective No pain reported. Mental Status/Objective Patient Orientation: Person, Place ADL-Treatment Therapy Code Descriptions/Definitions Functional Tift Measure: 0=Not Assessed/NA 4=Minimal Assistance 1=Total Assistance 5=Supervision or Setup 2=Maximal Assistance 6=Modified Tift 3=Moderate Assistance 7=Complete IndependenceSCALE: Activities may be completed with or without assistive devices. 8-Hcsfunpdsm-mnetfrj completes the activity by him/herself with no assistance from a helper. 5-Set-up or Clean-up Assistance-helper sets up or cleans up; patient completes activity. [place] assists only prior to or following the activity. 4-Supervision or Touching Assistance-helper provides verbal cues and/or touching/steadying and/or contact guard assistance as patient completes activity. Assistance may be provided throughout the activity or intermittently. 3-Partial/Moderate Assistance-helper does LESS THAN HALF the effort. [place] lifts, holds or supports trunk or limbs, but provides less than half the effort. 2-Substantial/Maximal Assistance-helper does MORE THAN HALF the effort. [place] lifts or holds trunk or limbs and provides more than half the effort. 6-Fmtphdecw-qrznab does ALL the effort. Patient does none of the effort to complete the activity. Or, the assistance of 2 or more helpers is required for the patient to complete the activity. If activity was not attempted, code reason: 7-Patient Refused. 9-Not Applicable-not attempted and the patient did not perform the activity before the current illness, exacerbation or injury. 10-Not Attempted due to Environmental Limitations-(lack of equipment, weather restraints, etc.). 88-Not Attempted due to Medical Conditions or Safety Concerns. Eating (QC): 4 (Pt. has just finished feeding self.) Toileting Hygiene (QC): 1 Toilet Transfer (QC): 1 Other Treatment Pt. up in chair. Pt. issued red therapy sponge to work with left hand strengthenging. Pt. verbalizes understanding. Pt. indicates that she needs to use BSC. OT stands pt. with max assist, and is able to pivot toward commode. While in stance, OT is able to doff pt's brief, as pt. is unable to assist with this. OT lowers pt. to commode. PT indicates that she would like to sit for awhile. Pt. given her tray table and call light. Nursing notified that she is on the BSC and is watching her. All needs met. Education OT Patient Education: Correct positioning, Exercise program, Modified ADL techniques, Progress toward Goal/Update tx plan, Purpose of tx/functional activities, Reviewed precautions, Rehab process, Transfer techniques Teaching Recipient: Patient Teaching Methods: Demonstration, Discussion OT Short Term Goals Short Term Goals Time Frame: December 18, 2020 Eatin Oral hygiene: 3 Toileting hygiene: 3 Shower/bathe self: 3 Upper body dressin Lower body dressin Putting on/taking off footwear: 3 OT Manager Compliance Goals Jail Goals Time Frame: Jan 01, 2021 Eating (QC): 5 Oral Hygiene (QC): 5 Toileting Hygiene (QC): 4 Shower/Bathe Self (QC): 4 Upper Body Dressing (QC): 4 Lower Body Dressing (QC): 4 On/Off Footwear (QC): 5 Additional Goals: 1-Demonstrate ADL Tasks, 2-Verbalize Understanding, 3- ImproveStrength/Helene 1=Demonstrate adherence to instructed precautions during ADL tasks. 2=Patient will verbalize/demonstrate understanding of assistive devices/modifications for ADL. 3=Patient will improve strength/tolerance for activity to enable patient to perform ADL's. OT Education/Plan Problem List/Assessment Assessment: Decreased Activ Tolerance, Impaired I ADL's, Impaired Self-Care Skills Discharge Recommendations Plan/Recommendations: Continue POC Treatment Plan/Plan of Care Treatment,Training & Education: Yes Patient would benefit from OT for education, treatment and training to promote independence in ADL's, mobility, safety and/or upper extremity function for ADL's. Plan of Care: ADL Retraining, Caregiver Training, Functional Mobility, UE Funct Exercise/Act, UE Neuromus Re-Ed/Coord, Visual/Perceptual Retrain Treatment Duration: Jan 01, 2021 Frequency: 5 times per week Estimated Hrs Per Day: .25 hour per day Agreement: Yes Rehab Potential: Good Time/GCodes Start Time: 13:05 Stop Time: 13:15 Total Time Billed (hr/min): 10 Billed Treatment Time 1, ADL SOFIEMIGUEL OT December 10, 2020 13:42
[2020-12-10 15:34] VITALS: BP 107/66
--- NOTE | 2020-12-10 15:45 | Physical Therapy Daily Note ---
PT Daily Note-Current Subjective Pt laying L sidelying in bed upon arrival. Pt declines transferring to recliner, citing abdominal discomfort. Pt agrees to Supine Ex. Transfers SCALE: Activities may be completed with or without assistive devices. 6-Ciwpylpbov-dvkeeoc completes the activity by him/herself with no assistance from a helper. 5-Set-up or Clean-up Assistance-helper sets up or cleans up; patient completes activity. [place] assists only prior to or following the activity. 4-Supervision or Touching Assistance-helper provides verbal cues and/or touching /steadying and/or contact guard assistance as patient completes activity. Assistance may be provided throughout the activity or intermittently. 3-Partial/Moderate Assistance-helper does LESS THAN HALF the effort. [place] lifts, holds or supports trunk or limbs, but provides less than half the effort. 2-Substantial/Maximal Assistance-helper does MORE THAN HALF the effort. [place] lifts or holds trunk or limbs and provides more than half the effort. 7-Qrbiunfye-pxlrhj does ALL the effort. Patient does none of the effort to complete the activity. Or, the assistance of 2 or more helpers is required for the patient to complete the activity. If activity was not attempted, code reason: 7-Patient Refused. 9-Not Applicable-not attempted and the patient did not perform the activity before the current illness, exacerbation or injury. 10-Not Attempted due to Environmental Limitations-(lack of equipment, weather restraints, etc.). 88-Not Attempted due to Medical Conditions or Safety Concerns. Exercises Supine Ex: Ankle pumps, Quad Set, Glut sets, Heel Slides, Straight leg raise, Hip abd/add Supine Reps: 15 Treatments Pt completes Supine EX with RB as needed. AAROM on HS as pt fatigues. Pt resting at end of tx with all needs met, call light in hand. Assessment Current Status: Fair Progress Pt still demonstrates weakness but willing to working and is pleasant. PT Senior Care Goals Senior Care Goals PT Senior Care Goals Time Frame: December 20, 2020 Roll Left & Right (QC): 3 Sit to Lying (QC): 3 Lying-Sitting on Side/Bed(QC): 3 Sit to Stand (QC): 3 Chair/Hwo-cw-Qgfea Xfer(QC): 3 Toilet Transfer (QC): 3 Car Transfer (QC): 3 Does the Patient Walk: Yes Walk 10 feet (QC): 2 Walk 50ft with 2 Turns (QC): 2 Walk 150 ft (QC): 2 Walking 10ft on Uneven Surface: 2 1 Step (curb) (QC): 2 4 Steps (QC): 2 12 Steps (QC): 2 Picking up an Object (QC): 2 Does the Pt use WC or Scooter?: No Wheel 50 feet with 2 turns (QC: 3 Wheel 150 feet: 3 PT Plan Problem List Problem List: Activity Tolerance, Functional Strength Treatment/Plan Treatment Plan: Continue Plan of Care Treatment Plan: Bed Mobility, Education, Functional Activity Helene, Functional Strength, Gait, Safety, Therapeutic Exercise, Transfers Treatment Duration: December 20, 2020 Frequency: 6 times per week Estimated Hrs Per Day: .5 hour per day Patient and/or Family Agrees t: Yes Safety Risks/Education Patient Education: Correct Positioning Teaching Recipient: Patient Teaching Methods: Discussion Response to Teaching: Reinforcement Needed Time/GCodes Time In: 1520 Time Out: 1540 Total Billed Treatment Time: 20 Total Billed Treatment 1, EX (20m) BHAVIN DE ANDA DISPATCHER CHIEF OIL December 10, 2020 15:45
[2020-12-10] MEDS ORDERED: ASPI-1238 PO (16:28)
[2020-12-10] MEDS ORDERED: CITA10TA7 PO (16:28)
[2020-12-10] MEDS ORDERED: NYST1000 PO (16:28)
[2020-12-10] MEDS ORDERED: LISI20TA26 PO (16:28)
[2020-12-10] MEDS ORDERED: ZOLP5TAB7 PO (16:28)
[2020-12-10] MEDS ORDERED: Lorazepam PO (16:28)
[2020-12-10] MEDS ORDERED: ENOX40DI8 SC (16:28)
[2020-12-10] MEDS ORDERED: NICO1PAT38 TD (16:28)
[2020-12-10] MEDS ORDERED: ATOR80TA76 PO (16:28)
--- NOTE | 2020-12-10 16:28 | Discharge Summary ---
Diagnosis/Chief Complaint Date of Admission December 02, 2020 at 14:30 Date of Discharge Discharge Date: December 10, 2020 Discharge Diagnosis CVA w/left sided HP Smoker Discharge Summary Discharge Physical Examination Allergies: Coded Allergies: Sulfa (Sulfonamide Antibiotics) (Unverified Allergy, Unknown, 12/02/20) Vitals & I&Os Vital Signs Date Time Temp Pulse Resp B/P (MAP) Pulse Ox O2 Delivery O2 Flow Rate FiO2 12/10/20 16:46 36.0 75 18 107/66 94 Room Air General Appearance: Alert, Oriented X3, Cooperative Respiratory: Clear to Auscultation Cardiovascular: Regular Rate Neuro: Other (left sided flaccidity) Psych/Mental Status: Mental Status NL Hospital Course Was the Problem List Reviewed?: Yes Standard hospital course after presenting with left sided weakness/flaccidity. She was found to have had a CVA and PT OT was ordered along with w/u which revealed no reversible cause. Statin and ASA started and smoking cessation initiated. Patient will need aggressive therapy in order to regain left sided strength in order to function in an independent status. Labs (last 24 hrs) Laboratory Tests 12/02/20 09:38: White Blood Count 6.0, Red Blood Count 4.62, Hemoglobin 13.8, Hematocrit 43, Mean Corpuscular Volume 92, Mean Corpuscular Hemoglobin 30, Mean Corpuscular Hemoglobin Concent 33, Red Cell Distribution Width 13.4, Platelet Count 311, Mean Platelet Volume 10.3, Immature Granulocyte % (Auto) 0, Neutrophils (%) (Auto) 54, Lymphocytes (%) (Auto) 34, Monocytes (%) (Auto) 7, Eosinophils (%) (Auto) 4, Basophils (%) (Auto) 1, Neutrophils # (Auto) 3.2, Lymphocytes # (Auto) 2.0, Monocytes # (Auto) 0.4, Eosinophils # (Auto) 0.2, Basophils # (Auto) 0.1, Immature Granulocyte # (Auto) 0.0, Prothrombin Time 11.9L, INR Comment 0.8, Activated Partial Thromboplast Time 25, Sodium Level 141, Potassium Level 4.2, Chloride Level 104, Carbon Dioxide Level 26, Anion Gap 11, Blood Urea Nitrogen 16, Creatinine 0.90, Estimat Glomerular Filtration Rate > 60, BUN/Creatinine Ratio 18, Glucose Level 121H, Calcium Level 9.4, Corrected Calcium 9.3, Total Bilirubin 0.3, Aspartate Amino Transf (AST/SGOT) 23, Alanine Aminotransferase (ALT/SGPT) 20, Alkaline Phosphatase 63, Total Protein 7.5, Albumin 4.1, Triglycerides Level 178H, Cholesterol Level 251H, LDL Cholesterol Direct 194H, VLDL Cholesterol 36, HDL Cholesterol 49 12/02/20 11:27: Urine Color YELLOW, Urine Clarity CLEAR, Urine pH 6.5, Urine Specific [place] 1.010L, Urine Protein NEGATIVE, Urine Glucose (UA) NEGATIVE, Urine Ketones NEGATIVE, Urine Nitrite NEGATIVE, Urine Bilirubin NEGATIVE, Urine Urobilinogen 0.2, Urine Leukocyte Esterase NEGATIVE, Urine RBC (Auto) NEGATIVE, Urine RBC NONE, Urine WBC RARE, Urine Squamous Epithelial Cells 0-2, Urine Crystals NONE, Urine Bacteria TRACE, Urine Casts NONE, Urine Mucus NEGATIVE, Urine Culture Indicated NO, Urine Opiates Screen NEGATIVE, Urine Oxycodone Screen NEGATIVE, Urine Methadone Screen NEGATIVE, Urine Propoxyphene Screen NEGATIVE, Urine Barbiturates Screen NEGATIVE, Ur Tricyclic Antidepressants Screen NEGATIVE, Urine Phencyclidine Screen NEGATIVE, Urine Amphetamines Screen NEGATIVE, Urine Methamphetamines Screen NEGATIVE, Urine Benzodiazepines Screen NEGATIVE, Urine Cocaine Screen NEGATIVE, Urine Cannabinoids Screen NEGATIVE 12/03/20 02:05: White Blood Count 7.7, Red Blood Count 4.11, Hemoglobin 12.1, Hematocrit 37, Mean Corpuscular Volume 89, Mean Corpuscular Hemoglobin 29, Mean Corpuscular Hemoglobin Concent 33, Red Cell Distribution Width 13.4, Platelet Count 261, Mean Platelet Volume 9.9, Immature Granulocyte % (Auto) 0, Neutrophils (%) (Auto) 78H, Lymphocytes (%) (Auto) 16, Monocytes (%) (Auto) 6, Eosinophils (%) (Auto) 0, Basophils (%) (Auto) 0, Neutrophils # (Auto) 6.0, Lymphocytes # (Auto) 1.2, Monocytes # (Auto) 0.4, Eosinophils # (Auto) 0.0, Basophils # (Auto) 0.0, Immature Granulocyte # (Auto) 0.0, Sodium Level 142, Potassium Level 3.6, Chloride Level 108H, Carbon Dioxide Level 22, Anion Gap 12, Blood Urea Nitrogen 13, Creatinine 0.70, Estimat Glomerular Filtration Rate > 60, BUN/Creatinine Rat io 19, Glucose Level 112H, Calcium Level 8.5, Mean Blood Glucose 111, Hemoglobin A1c 5.5, Phosphorus Level 2.7, Magnesium Level 1.9 12/04/20 03:15: White Blood Count 7.6, Red Blood Count 3.86, Hemoglobin 11.4L, Hematocrit 35, Mean Corpuscular Volume 90, Mean Corpuscular Hemoglobin 30, Mean Corpuscular Hemoglobin Concent 33, Red Cell Distribution Width 13.5, Platelet Count 244, Mean Platelet Volume 9.8, Immature Granulocyte % (Auto) 0, Neutrophils (%) (Auto) 66, Lymphocytes (%) (Auto) 24, Monocytes (%) (Auto) 8, Eosinophils (%) (Auto) 2, Basophils (%) (Auto) 1, Neutrophils # (Auto) 5.0, Lymphocytes # (Auto) 1.8, Monocytes # (Auto) 0.6, Eosinophils # (Auto) 0.1, Basophils # (Auto) 0.1, Immature Granulocyte # (Auto) 0.0, Sodium Level 139, Potassium Level 3.9, Chloride Level 109H, Carbon Dioxide Level 24, Anion Gap 6, Blood Urea Nitrogen 11, Creatinine 0.76, Estimat Glomerular Filtration Rate > 60, BUN/Creatinine Ratio 14, Glucose Level 128H, Calcium Level 8.4L, Phosphorus Level 2.1L, Magnesium Level 2.0 12/05/20 05:03: White Blood Count 6.6, Red Blood Count 4.07, Hemoglobin 12.1, Hematocrit 37, Alysha n Corpuscular Volume 91, Mean Corpuscular Hemoglobin 30, Mean Corpuscular Hemoglobin Concent 33, Red Cell Distribution Width 13.5, Platelet Count 247, Mean Platelet Volume 10.2, Immature Granulocyte % (Auto) 1, Neutrophils (%) (Auto) 62, Lymphocytes (%) (Auto) 26, Monocytes (%) (Auto) 8, Eosinophils (%) (Auto) 3, Basophils (%) (Auto) 1, Neutrophils # (Auto) 4.1, Lymphocytes # (Auto) 1.7, Monocytes # (Auto) 0.6, Eosinophils # (Auto) 0.2, Basophils # (Auto) 0.1, Immature Granulocyte # (Auto) 0.0, Sodium Level 141, Potassium Level 3.7, Chloride Level 108H, Carbon Dioxide Level 25, Anion Gap 8, Blood Urea Nitrogen 1 0, Creatinine 0.70, Estimat Glomerular Filtration Rate > 60, BUN/Creatinine Ratio 14, Glucose Level 107H, Calcium Level 9.0, Phosphorus Level 3.1, Magnesium Level 2.0 12/06/20 03:28: White Blood Count 6.9, Red Blood Count 4.01, Hemoglobin 11.8, Hematocrit 36, Mean Corpuscular Volume 90, Mean Corpuscular Hemoglobin 29, Mean Corpuscular Hemoglobin Concent 33, Red Cell Distribution Width 13.5, Platelet Count 278, Mean Platelet Volume 10.0, Immature Granulocyte % (Auto) 0, Neutrophils (%) (Auto) 58, Lymphocytes (%) (Auto) 29, Monocytes (%) (Auto) 8, Eosinophils (%) (Auto) 4, Basophils (%) (Auto) 1, Neutrophils # (Auto) 4.0, Lymphocytes # (Auto) 2.0, Monocytes # (Auto) 0.6, Eosinophils # (Auto) 0.3, Basophils # (Auto) 0.1, Immature Granulocyte # (Auto) 0.0, Sodium Level 141, Potassium Level 4.2, Chloride Level 108H, Carbon Dioxide Level 25, Anion Gap 8, Blood Urea Nitrogen 12, Creatinine 0.70, Estimat Glomerular Filtration Rate > 60, BUN/Creatinine Rat io 17, Glucose Level 109H, Calcium Level 9.0, Phosphorus Level 3.7, Magnesium Level 1.9 12/07/20 03:42: White Blood Count 7.7, Red Blood Count 3.80, Hemoglobin 11.3L, Hematocrit 34L, Mean Corpuscular Volume 90, Mean Corpuscular Hemoglobin 30, Mean Corpuscular Hemoglobin Concent 33, Red Cell Distribution Width 13.5, Platelet Count 269, Mean Platelet Volume 10.0, Immature Granulocyte % (Auto) 0, Neutrophils (%) (Auto) 70, Lymphocytes (%) (Auto) 21, Monocytes (%) (Auto) 7, Eosinophils (%) (Auto) 1, Basophils (%) (Auto) 1, Neutrophils # (Auto) 5.4, Lymphocytes # (Auto) 1.7, Monocytes # (Auto) 0.5, Eosinophils # (Auto) 0.1, Basophils # (Auto) 0.0, Immature Granulocyte # (Auto) 0.0, Sodium Level 140, Potassium Level 4.2, Chloride Level 107, Carbon Dioxide Level 26, Anion Gap 7, Blood Urea Nitrogen 12, Creatinine 0.69, Estimat Glomerular Filtration Rate > 60, BUN/Creatinine Ratio 17, Glucose Level 119H, Calcium Level 8.9, Phosphorus Level 4.2, Magnesium Level 1.8 12/08/20 04:55: White Blood Count 9.8, Red Blood Count 4.32, Hemoglobin 12.7, Hematocrit 39, Mean Corpuscular Volume 90, Mean Corpuscular Hemoglobin 29, Mean Corpuscular Hemoglobin Concent 33, Red Cell Distribution Width 13.5, Platelet Count 331, Mean Platelet Volume 9.8, Immature Granulocyte % (Auto) 0, Neutrophils (%) (Auto) 77H, Lymphocytes (%) (Auto) 16, Monocytes (%) (Auto) 6, Eosinophils (%) (Auto) 1, Basophils (%) (Auto) 0, Neutrophils # (Auto) 7.5, Lymphocytes # (Auto) 1.6, Monocytes # (Auto) 0.6, Eosinophils # (Auto) 0.1, Basophils # (Auto) 0.0, Immature Granulocyte # (Auto) 0.0, Sodium Level 139, Potassium Level 4.6, Chloride Level 105, Carbon Dioxide Level 23, Anion Gap 11, Blood Urea Nitrogen 16, Creatinine 0.77, Estimat Glomerular Filtration Rate > 60, BUN/Creatinine Ratio 21, Glucose Level 109H, Calcium Level 9.5, Phosphorus Level 3.6, Magnesium Level 1.9 12/09/20 05:30: White Blood Count 6.5, Red Blood Count 4.07, Hemoglobin 12.1, Hematocrit 37, Mean Corpuscular Volume 90, Mean Corpuscular Hemoglobin 30, Mean Corpuscular Hemoglobin Concent 33, Red Cell Distribution Width 13.6, Platelet Count 304, Mean Platelet Volume 9.8, Immature Granulocyte % (Auto) 0, Neutrophils (%) (Auto) 60, Lymphocytes (%) (Auto) 28, Monocytes (%) (Auto) 8, Eosinophils (%) (Auto) 3, Basophils (%) (Auto) 1, Neutrophils # (Auto) 3.9, Lymphocytes # (Auto) 1.8, Monocytes # (Auto) 0.5, Eosinophils # (Auto) 0.2, Basophils # (Auto) 0.1, Immature Granulocyte # (Auto) 0.0, Sodium Level 139, Potassium Level 4.2, Chloride Level 104, Carbon Dioxide Level 28, Anion Gap 7, Blood Urea Nitrogen 21H, Creatinine 0.77, Estimat Glomerular Filtration Rate > 60, BUN/Creatinine Ratio 27, Glucose Level 101, Calcium Level 9.3, Corrected Calcium 9.5, Phosphorus Level 3.0, Magnesium Level 1.9, Total Bilirubin 0.8, Aspartate Amino Transf (AST/SGOT) 31, Alanine Aminotransferase (ALT/SGPT) 34, Alkaline Phosphatase 58, Total Protein 6.7, Albumin 3.7 12/10/20 04:33: White Blood Count 7.2, Red Blood Count 4.01, Hemoglobin 11.9, Hematocrit 36, Mean Corpuscular Volume 90, Mean Corpuscular Hemoglobin 30, Mean Corpuscular Hemoglobin Concent 33, Red Cell Distribution Width 13.4, Platelet Count 304, Mean Platelet Volume 10.3, Immature Granulocyte % (Auto) 0, Neutrophils (%) (Auto) 59, Lymphocytes (%) (Auto) 28, Monocytes (%) (Auto) 8, Eosinophils (%) (Auto) 4, Basophils (%) (Auto) 1, Neutrophils # (Auto) 4.3, Lymphocytes # (Auto) 2.0, Monocytes # (Auto) 0.6, Eosinophils # (Auto) 0.3, Basophils # (Auto) 0.1, Immature Granulocyte # (Auto) 0.0, Sodium Level 140, Potassium Level 4.0, Chloride Level 104, Carbon Dioxide Level 26, Anion Gap 10, Blood Urea Nitrogen 21H, Creatinine 0.74, Estimat Glomerular Filtration Rate > 60, BUN/Creatinine Ratio 28, Glucose Level 99, Calcium Level 9.3, Phosphorus Level 3.3, Magnesium Level 1.8 Pending Labs Laboratory Tests 12/02/20 09:38: White Blood Count 6.0, Red Blood Count 4.62, Hemoglobin 13.8, Hematocrit 43, Mean Corpuscular Volume 92, Mean Corpuscular Hemoglobin 30, Mean Corpuscular Hemoglobin Concent 33, Red Cell Distribution Width 13.4, Platelet Count 311, Mean Platelet Volume 10.3, Immature Granulocyte % (Auto) 0, Neutrophils (%) (Auto) 54, Lymphocytes (%) (Auto) 34, Monocytes (%) (Auto) 7, Eosinophils (%) (Auto) 4, Basophils (%) (Auto) 1, Neutrophils # (Auto) 3.2, Lymphocytes # (Auto) 2.0, Monocytes # (Auto) 0.4, Eosinophils # (Auto) 0.2, Basophils # (Auto) 0.1, Immature Granulocyte # (Auto) 0.0, Prothrombin Time 11.9, INR Comment 0.8, Activated Partial Thromboplast Time 25, Sodium Level 141, Potassium Level 4.2, Chloride Level 104, Carbon Dioxide Level 26, Anion Gap 11, Blood Urea Nitrogen 16, Creatinine 0.90, Estimat Glomerular Filtration Rate > 60, BUN/Creatinine Rat io 18, Glucose Level 121, Calcium Level 9.4, Corrected Calcium 9.3, Total Bilirubin 0.3, Aspartate Amino Transf (AST/SGOT) 23, Alanine Aminotransferase (ALT/SGPT) 20, Alkaline Phosphatase 63, Total Protein 7.5, Albumin 4.1, Triglycerides Level 178, Cholesterol Level 251, LDL Cholesterol Direct 194, VLDL Cholesterol 36, HDL Cholesterol 49 12/02/20 11:27: Urine Color YELLOW, Urine Clarity CLEAR, Urine pH 6.5, Urine Specific [place] 1.010, Urine Protein NEGATIVE, Urine Glucose (UA) NEGATIVE, Urine Ketones NEGATIVE, Urine Nitrite NEGATIVE, Urine Bilirubin NEGATIVE, Urine Urobilinogen 0.2, Urine Leukocyte Esterase NEGATIVE, Urine RBC (Auto) NEGATIVE, Urine RBC NONE, Urine WBC RARE, Urine Squamous Epithelial Cells 0-2, Urine Crystals NONE, Urine Bacteria TRACE, Urine Casts NONE, Urine Mucus NEGATIVE, Urine Culture Indicated NO, Urine Opiates Screen NEGATIVE, Urine Oxycodone Screen NEGATIVE, Urine Methadone Screen NEGATIVE, Urine Propoxyphene Screen NEGATIVE, Urine Barbiturates Screen NEGATIVE, Ur Tricyclic Antidepressants Screen NEGATIVE, Urine Phencyclidine Screen NEGATIVE, Urine Amphetamines Screen NEGATIVE, Urine Methamphetamines Screen NEGATIVE, Urine Benzodiazepines Screen NEGATIVE, Urine Cocaine Screen NEGATIVE, Urine Cannabinoids Screen NEGATIVE 12/03/20 02:05: White Blood Count 7.7, Red Blood Count 4.11, Hemoglobin 12.1, Hematocrit 37, Mean Corpuscular Volume 89, Mean Corpuscular Hemoglobin 29, Mean Corpuscular Hemoglobin Concent 33, Red Cell Distribution Width 13.4, Platelet Count 261, Mean Platelet Volume 9.9, Immature Granulocyte % (Auto) 0, Neutrophils (%) (Auto) 78, Lymphocytes (%) (Auto) 16, Monocytes (%) (Auto) 6, Eosinophils (%) (Auto) 0, Basophils (%) (Auto) 0, Neutrophils # (Auto) 6.0, Lymphocytes # (Auto) 1.2, Monocytes # (Auto) 0.4, Eosinophils # (Auto) 0.0, Basophils # (Auto) 0.0, Immature Granulocyte # (Auto) 0.0, Sodium Level 142, Potassium Level 3.6, Chloride Level 108, Carbon Dioxide Level 22, Anion Gap 12, Blood Urea Nitrogen 13, Creatinine 0.70, Estimat Glomerular Filtration Rate > 60, BUN/Creatinine Ratio 19, Glucose Level 112, Calcium Level 8.5, Mean Blood Glucose 111, Hemog lobin A1c 5.5, Phosphorus Level 2.7, Magnesium Level 1.9 12/04/20 03:15: White Blood Count 7.6, Red Blood Count 3.86, Hemoglobin 11.4, Hematocrit 35, Mean Corpuscular Volume 90, Mean Corpuscular Hemoglobin 30, Mean Corpuscular Hemoglobin Concent 33, Red Cell Distribution Width 13.5, Platelet Count 244, Mean Platelet Volume 9.8, Immature Granulocyte % (Auto) 0, Neutrophils (%) (Auto) 66, Lymphocytes (%) (Auto) 24, Monocytes (%) (Auto) 8, Eosinophils (%) (Auto) 2, Basophils (%) (Auto) 1, Neutrophils # (Auto) 5.0, Lymphocytes # (Auto) 1.8, Monocytes # (Auto) 0.6, Eosinophils # (Auto) 0.1, Basophils # (Auto) 0.1, Immature Granulocyte # (Auto) 0.0, Sodium Level 139, Potassium Level 3.9, Chloride Level 109, Carbon Dioxide Level 24, Anion Gap 6, Blood Urea Nitrogen 11, Creatinine 0.76, Estimat Glomerular Filtration Rate > 60, BUN/Creatinine Ratio 14, Glucose Level 128, Calcium Level 8.4, Phosphorus Level 2.1, Magnesium Level 2.0 12/05/20 05:03: White Blood Count 6.6, Red Blood Count 4.07, Hemoglobin 12.1, Hematocrit 37, Mean Corpuscular Volume 91, Mean Corpuscular Hemoglobin 30, Mean Corpuscular Hemoglobin Concent 33, Red Cell Distribution Width 13.5, Platelet Count 247, Mean Platelet Volume 10.2, Immature Granulocyte % (Auto) 1, Neutrophils (%) (Auto) 62, Lymphocytes (%) (Auto) 26, Monocytes (%) (Auto) 8, Eosinophils (%) (Auto) 3, Basophils (%) (Auto) 1, Neutrophils # (Auto) 4.1, Lymphocytes # (Auto) 1.7, Monocytes # (Auto) 0.6, Eosinophils # (Auto) 0.2, Basophils # (Auto) 0.1, Immature Granulocyte # (Auto) 0.0, Sodium Level 141, Potassium Level 3.7, Chloride Level 108, Carbon Dioxide Level 25, Anion Gap 8, Blood Urea Nitrogen 10, Creatinine 0.70, Estimat Glomerular Filtration Rate > 60, BUN/Creatinine Ratio 14, Glucose Level 107, Calcium Level 9.0, Phosphorus Level 3.1, Magnesium Level 2.0 12/06/20 03:28: White Blood Count 6.9, Red Blood Count 4.01, Hemoglobin 11.8, Hematocrit 36, Mean Corpuscular Volume 90, Mean Corpuscular Hemoglobin 29, Mean Corpuscular Hemoglobin Concent 33, Red Cell Distribution Width 13.5, Platelet Count 278, Mean Platelet Volume 10.0, Immature Granulocyte % (Auto) 0, Neutrophils (%) (Auto) 58, Lymphocytes (%) (Auto) 29, Monocytes (%) (Auto) 8, Eosinophils (%) (Auto) 4, Basophils (%) (Auto) 1, Neutrophils # (Auto) 4.0, Lymphocytes # (Auto) 2.0, Monocytes # (Auto) 0.6, Eosinophils # (Auto) 0.3, Basophils # (Auto) 0.1, Immature Granulocyte # (Auto) 0.0, Sodium Level 141, Potassium Level 4.2, Chloride Level 108, Carbon Dioxide Level 25, Anion Gap 8, Blood Urea Nitrogen 12, Creatinine 0.70, Estimat Glomerular Filtration Rate > 60, BUN/Creatinine Ratio 17, Glucose Level 109, Calcium Level 9.0, Phosphorus Level 3.7, Magnesium Level 1.9 12/07/20 03:42: White Blood Count 7.7, Red Blood Count 3.80, Hemoglobin 11.3, Hematocrit 34, Mean Corpuscular Volume 90, Mean Corpuscular Hemoglobin 30, Mean Corpuscular Hemoglobin Concent 33, Red Cell Distribution Width 13.5, Platelet Count 269, Mean Platelet Volume 10.0, Immature Granulocyte % (Auto) 0, Neutrophils (%) (Auto) 70, Lymphocytes (%) (Auto) 21, Monocytes (%) (Auto) 7, Eosinophils (%) (Auto) 1, Basophils (%) (Auto) 1, Neutrophils # (Auto) 5.4, Lymphocytes # (Auto) 1.7, Monocytes # (Auto) 0.5, Eosinophils # (Auto) 0.1, Basophils # (Auto) 0.0, Immature Granulocyte # (Auto) 0.0, Sodium Level 140, Potassium Level 4.2, Chloride Level 107, Carbon Dioxide Level 26, Anion Gap 7, Blood Urea Nitrogen 12, Creatinine 0.69, Estimat Glomerular Filtration Rate > 60, BUN/Creatinine Ratio 17, Glucose Level 119, Calcium Level 8.9, Phosphorus Level 4.2, Magnesium Level 1.8 12/08/20 04:55: White Blood Count 9.8, Red Blood Count 4.32, Hemoglobin 12.7, Hematocrit 39, Mean Corpuscular Volume 90, Mean Corpuscular Hemoglobin 29, Mean Corpuscular Hemoglobin Concent 33, Red Cell Distribution Width 13.5, Platelet Count 331, Mean Platelet Volume 9.8, Immature Granulocyte % (Auto) 0, Neutrophils (%) (Auto) 77, Lymphocytes (%) (Auto) 16, Monocytes (%) (Auto) 6, Eosinophils (%) (Auto) 1, Basophils (%) (Auto) 0, Neutrophils # (Auto) 7.5, Lymphocytes # (Auto) 1.6, Monocytes # (Auto) 0.6, Eosinophils # (Auto) 0.1, Basophils # (Auto) 0.0, Immature Granulocyte # (Auto) 0.0, Sodium Level 139, Potassium Level 4.6, Chloride Level 105, Carbon Dioxide Level 23, Anion Gap 11, Blood Urea Nitrogen 16, Creatinine 0.77, Estimat Glomerular Filtration Rate > 60, BUN/Creatinine Ratio 21, Glucose Level 109, Calcium Level 9.5, Phosphorus Level 3.6, Magnesium Level 1.9 12/09/20 05:30: White Blood Count 6.5, Red Blood Count 4.07, Hemoglobin 12.1, Hematocrit 37, Mean Corpuscular Volume 90, Mean Corpuscular Hemoglobin 30, Mean Corpuscular Hemoglobin Concent 33, Red Cell Distribution Width 13.6, Platelet Count 304, Mean Platelet Volume 9.8, Immature Granulocyte % (Auto) 0, Neutrophils (%) (Auto) 60, Lymphocytes (%) (Auto) 28, Monocytes (%) (Auto) 8, Eosinophils (%) (Auto) 3, Basophils (%) (Auto) 1, Neutrophils # (Auto) 3.9, Lymphocytes # (Auto) 1.8, Monocytes # (Auto) 0.5, Eosinophils # (Auto) 0.2, Basophils # (Auto) 0.1, Immature Granulocyte # (Auto) 0.0, Sodium Level 139, Potassium Level 4.2, Chloride Level 104, Carbon Dioxide Level 28, Anion Gap 7, Blood Urea Nitrogen 21, Creatinine 0.77, Estimat Glomerular Filtration Rate > 60, BUN/Creatinine Ratio 27, Glucose Level 101, Calcium Level 9.3, Corrected Calcium 9.5, Phosphorus Level 3.0, Magnesium Level 1.9, Total Bilirubin 0.8, Aspartate Amino Transf (AST/SGOT) 31, Alanine Aminotransferase (ALT/SGPT) 34, Alkaline Phosphatase 58, Total Protein 6.7, Albumin 3.7 12/10/20 04:33: White Blood Count 7.2, Red Blood Count 4.01, Hemoglobin 11.9, Hematocrit 36, Mean Corpuscular Volume 90, Mean Corpuscular Hemoglobin 30, Mean Corpuscular Hemoglobin Concent 33, Red Cell Distribution Width 13.4, Platelet Count 304, Mean Platelet Volume 10.3, Immature Granulocyte % (Auto) 0, Neutrophils (%) (Auto) 59, Lymphocytes (%) (Auto) 28, Monocytes (%) (Auto) 8, Eosinophils (%) (Auto) 4, Basophils (%) (Auto) 1, Neutrophils # (Auto) 4.3, Lymphocytes # (Auto) 2.0, Monocytes # (Auto) 0.6, Eosinophils # (Auto) 0.3, Basophils # (Auto) 0.1, Immature Granulocyte # (Auto) 0.0, Sodium Level 140, Potassium Level 4.0, Chloride Level 104, Carbon Dioxide Level 26, Anion Gap 10, Blood Urea Nitrogen 21, Creatinine 0.74, Estimat Glomerular Filtration Rate > 60, BUN/Creatinine Ratio 28, Glucose Level 99, Calcium Level 9.3, Phosphorus Level 3.3, Magnesium Level 1.8 Discharge Home Medications: Active Scripts Active [Lorazepam] 0.5 MG Tablet 0.5 Mg PO Q8H PRN 7 Days Zolpidem Tartrate 5 Mg Tablet 5 Mg PO HS PRN 7 Days Citalopram HBr (Citalopram Hydrobromide) 10 Mg Tablet 10 Mg PO DAILY 365 Days Aspirin EC (Aspirin) 81 Mg Tablet.dr 81 Mg PO DAILY 365 Days Lisinopril 20 Mg Tablet 20 Mg PO DAILY@0900 365 Days Atorvastatin Calcium 80 Mg Tablet 80 Mg PO HS 365 Days Enoxaparin Sodium 40 Mg/0.4 Ml Syringe 40 Mg SC DAILY@1100 7 Days Nicoderm Cq (Nicotine) 1 Each Patch.td24 14 Mg TD DAILY@0900 30 Days Nystatin 100,000 Unit/1 Ml Oral.susp 5 Ml PO QID 7 Days Reported Vitamin B-12 (Cyanocobalamin (Vitamin B-12)) 500 Mcg Tablet 500 Mcg PO DAILY Centrum Silver Women Tablet (Multivits-Min/Iron/FA/Lutein) 1 Each Tablet 1 Each PO DAILY Calcium (Calcium Carbonate) 600 Mg Tablet 600 Mg PO DAILY Instructions to patient/family Please see electronic discharge instructions given to patient. Clinical Quality Measures Stroke: Date of last known well: December 01, 2020 Time of last known well: 22:00 Symptoms onset unknown: Yes MOHIT BOYKIN DO December 10, 2020 16:28
[2020-12-10 16:46] VITALS: BP 107/66
== END 2020-12-10 16:47 | DRG 62 ==
LOC: EDUNIT# 09:35 → ER 09:36 → ICU 14:30 → 4TH 12-04 11:04
PROVIDERS: ADMIT Internal Medicine; ATTEND Internal Medicine
DX: I63.9 Cerebral infarction, unspecified (principal); G81.04 Flaccid hemiplegia affecting left nondominant side; I50.30 Unspecified diastolic (congestive) heart failure; R47.1 Dysarthria and anarthria; F17.210 Nicotine dependence, cigarettes, uncomplicated; M17.0 Bilateral primary osteoarthritis of knee; R29.710 NIHSS score 10; I11.0 Hypertensive heart disease with heart failure; E78.5 Hyperlipidemia, unspecified; K59.00 Constipation, unspecified; F32.9 Major depressive disorder, single episode, unspecified; Z85.3 Personal history of malignant neoplasm of breast; Z88.2 Allergy status to sulfonamides
CPT/HCPCS: 36415; 51702; 70450; 70496; 70498; 70551; 71045; 80048; 80053; 80061; 80306; 81000; 83036; 83735; 84100; 85025; 85610; 85730; 93005; 93041; 93306; 94664; 94760; 96374; 96375

== ENCOUNTER 2020-12-10 16:17 | Inpatient (IN) | payer MEDICARE ==
[~2020-12-10] VITALS: Ht 172.7 cm; Wt 68.5 kg
[~2020-12-10 16:17] MED LIST changes: +ACET-2 PO; +CYAN500T8 PO
[2020-12-10] MEDS ORDERED: CITA10TA7 PO (16:28)
[2020-12-10] MEDS ORDERED: ENOX40DI8 SC (16:28)
[2020-12-10] MEDS ORDERED: ZOLP5TAB7 PO (16:28)
[2020-12-10] MEDS ORDERED: Lorazepam PO (16:28)
[2020-12-10] MEDS ORDERED: LISI20TA26 PO (16:28)
[2020-12-10] MEDS ORDERED: ASPI-1238 PO (16:28)
[2020-12-10] MEDS ORDERED: ATOR80TA76 PO (16:28)
[2020-12-10] MEDS ORDERED: NYST1000 PO (16:28)
[2020-12-10] MEDS ORDERED: NICO1PAT38 TD (16:28)
[2020-12-10] MEDS ORDERED: FLEET ENEMA ADULT 1 EA BTL PR PRN (16:30)
[2020-12-10] MEDS ORDERED: guaiFENesin/CODEINE (ROBITUSSIN AC) 10ML UDC PO PRN (16:30)
[2020-12-10] MEDS ORDERED: LOPERAMIDE 2 MG (IMODIUM) TABLET PO PRN (16:30)
[2020-12-10] MEDS ORDERED: LACTULOSE SYRUP 10GM/15ML (ENULOSE) 30ML UDC PO PRN (16:30)
[2020-12-10] MEDS ORDERED: diphenhydrAMINE 25 MG TAB (BENADRYL) PO PRN (16:30)
[2020-12-10] MEDS ORDERED: CALCIUM CARBONATE 500 MG (TUMS) TAB.CHEW PO PRN (16:30)
[2020-12-10] MEDS ORDERED: BISACODYL 10 MG SUPP (DULCOLAX) PR PRN (16:30)
[2020-12-10] MEDS ORDERED: ONDANSETRON 4 MG (ZOFRAN) ORAL DISSOLVE TAB PO PRN ×2 (16:30→17:30)
[2020-12-10] MEDS ORDERED: MELATONIN 3 MG TABLET PO PRN (16:30)
[2020-12-10] MEDS ORDERED: ACETAMINOPHEN 325 MG TABLET PO PRN ×2 (16:30→17:30)
[2020-12-10] MEDS ORDERED: DOCUSATE SODIUM 100 MG (COLACE) CAP PO PRN (16:30)
[2020-12-10] MEDS ORDERED: ALPRAZolam 0.25 MG (XANAX) TAB PO PRN (16:30)
[2020-12-10 17:09] VITALS: BP 161/65
--- NOTE | 2020-12-10 17:27 | PM&R Post Admission Assessment ---
PM&R HP Date of Visit: December 10, 2020 Time of Visit: 17:30 History of Present Illness CC: CVA w/left sided flaccidity HPI: This is a 75[facility]WF clinic patient of [facility] known to me from [place] [facility] who presents to the IR[facility] in need of aggressive rehab to resolve left sided flaccidity from CVA. ECHO was performed and carotid USG revealed some stenosis but no confirmed source of CVA. She is a heavy smoker and is now using a nicoti ne patch. We will consult Cardiology for evaluate risk factors of additional CVA's. BM are doing well and voiding well since catheter removed. PLOF was independent. Son was at the bedside and he had to go back to [place] to [place] but he will be back to check on her periodically and the SW will help fill out the FMLA form to help him assist his mother in the future 6 months. [facility] DC summary: Standard hospital course after presenting with left sided weakness/flaccidity. She was found to have had a CVA and PT OT was ordered along with w/u which revealed no reversible cause. Statin and ASA started and smoking cessation initiated. Patient will need aggressive therapy in order to regain left sided strength in order to function in an independent status. Past Igbvqtp-Xggtup-Phubfn Hx Past Med/Social Hx: Reviewed Nursing Past Med/Soc Hx, Reviewed and Corrections made Patient Social History Marrital Status: single Employed/Student: retired Alcohol Use: Denies Use Smoking Status: Current Everyday Smoker Type Used: Cigarettes Recent Foreign Travel: No Contact w/other who traveled: No Recent Hopitalizations: No Immunizations Up To Date Tetanus Booster (TDap): Unknown Pediatric: No Date of Pneumonia Vaccine: May 29, 2018 Date of Influenza Vaccine: Apr 10, 2018 Seasonal Allergies Seasonal Allergies: No Past Medical History Surgeries: Bladder Surgery, Hysterectomy Neurological: Stroke (12/05/20) Reproductive: No Sexually Transmitted Disease: No Musculoskeletal: Arthritis Cancer: Breast What Type of Treatment Did You: Radiation, Surgical Intervention History of Blood Disorders: No Family History Alcoholism G8 BROTHER Cardiovascular disease 19 MOTHER Completed stroke 19 FATHER FH: throat cancer G8 SISTER Hypertension 19 MOTHER Myocardial infarction 19 MOTHER noncontributory PM&R Allergy/Meds/Data Review Allergies Coded Allergies: Sulfa (Sulfonamide Antibiotics) (Unverified Allergy, Unknown, 5/11/21) Home Medications Scheduled Aspirin (Aspirin EC), 81 MG PO DAILY Atorvastatin Calcium (Atorvastatin Calcium), 80 MG PO HS Calcium Carbonate (Calcium), 600 MG PO DAILY, (Reported) Citalopram Hydrobromide (Citalopram HBr), 10 MG PO DAILY Cyanocobalamin (Vitamin B-12) (Vitamin B-12), 500 MCG PO DAILY, (Reported) Enoxaparin Sodium (Enoxaparin Sodium), 40 MG SC DAILY@1100 Lisinopril (Lisinopril), 20 MG PO DAILY@0900 Multivits-Min/Iron/FA/Lutein (Centrum Silver Women Tablet), 1 EACH PO DAILY, (Reported) Nicotine (Nicoderm Cq), 14 MG TD DAILY@0900 Nystatin (Nystatin), 5 ML PO QID Scheduled PRN Zolpidem Tartrate (Zolpidem Tartrate), 5 MG PO HS PRN for INSOMNIA [Lorazepam], 0.5 MG PO Q8H PRN for ANXIETY Discontinued Medications Acetaminophen/Diphenhydramine (Acetaminophen Pm Geltab), 1-2 EACH PO HS, (Reported) Current Medications Current Medications Reviewed Review of Systems Constitutional: see HPI, malaise, weakness EENTM: no symptoms reported Respiratory: no symptoms reported Cardiovascular: no symptoms reported Gastrointestinal: no symptoms reported Genitourinary: no symptoms reported Musculoskeletal: back pain Skin: no symptoms reported Psychiatric/Neurological: Weakness (left sided) Physical Exam Physical Exam Vital Signs Vital Signs - First Documented 12/10/20 17:09 Temp 36.2 Pulse 82 B/P (MAP) 161/65 (97) Pulse Ox 91 O2 Delivery Room Air Capillary Refill : Height, Weight, BMI Height: 5'8.00" Weight: 160lbs. 0.0oz. 72.664012ha; 23.13 BMI Method:Stated General Appearance: No Apparent Distress, WD/WN, Chronically ill, Thin Eyes: Bilateral Eye Normal Inspection, Bilateral Eye PERRL HEENT: PERRL/EOMI, Normal ENT Inspection, Pharynx Normal Neck: Full Range of Motion, Normal Inspection, Non Tender, Supple, Carotid Bruit Respiratory: Chest Non Tender, Lungs Clear, Normal Breath Sounds, No Accessory Muscle Use, No Respiratory Distress Cardiovascular: Regular Rate, Rhythm, No Edema, No Gallop, No JVD, No Murmur, Normal Peripheral Pulses Gastrointestinal: Normal Bowel Sounds, No Organomegaly, No Pulsatile Mass, Non Tender, Soft Back: Normal Inspection, No CVA Tenderness, No Vertebral Tenderness Extremity: Normal Capillary Refill, Normal Inspection, Normal Range of Motion, Non Tender, No Calf Tenderness, No Pedal Edema Neurologic/Psychiatric: Alert, Oriented x3, Abnormal Gait, Aphasia, Depressed Affect, Facial Droop, Motor Weakness (left sided flaccidity) Skin: Normal Color, Warm/Dry Lymphatic: No Adenopathy PM&R Medical Assessment & Plan REHAB/MEDICAL ASSESSMENT AND PLAN: REHAB IMPAIRMENT GROUP: CVA ETIOLOGIC DIAGNOSIS: CVA The comorbidities that impact the patients function and/or functional outcome by: smoker, poor reserve, fall risk, lives alone REHAB PLAN: The patient is being admitted to our comprehensive inpatient rehabilitation facility and can tolerate the intensity of service consisting of at least: 180 minutes of therapy a day, 5 out of 7 days a week Rehab treatment will consist of: PT OT ST will all focus on regaining function with left sided flaccidity and partial aphasia and expressive aphasia in order to regain function to ambulate with AD and increase independence in ADL's The patient/family has a good understanding of our discharge process and will benefit from an interdisciplinary inpatient rehabilitation program. The patient has potential to make improvement and is in need of at least two of the following multidisciplinary therapies including but not limited to physical, occupational, speech, and prosthetics and orthotics. Additionally the patient will need services from respiratory, nutritional services, wound care, psychology, etc. (Customize this to each patient). Given the patients complex condition and risk of further medical complications, rehabilitation services cannot be safely or effectively provided at a lower level of care such as a [facility] facility. BARRIERS TO DISCHARGE: Lives alone ESTIMATED LOS: 14 days DISPOSITION: Home RELEVANT CHANGES SINCE PREADMISSION SCREENING: I have compared the patients medical and functional status at the time of the preadmission screening and there are: no changes PROGNOSIS: Fair REHABILITATION GOALS: 1. PT OT ST will all focus on regaining function with left sided flaccidity and partial aphasia and expressive aphasia in order to regain function to ambulate with AD and increase independence in ADL's All the above goals were reviewed with the patient and he/she is in agreement. By signing this document, I acknowledge that I have personally performed a full physical examination on this patient within 24 hours of admission to this inpatient rehabilitation facility and have determined the patient to be able to tolerate the above course of treatment at an intensive level for a reasonable period of time. I will be completing a detailed individualized Plan of Care for this patient by day #4 of the patients stay based upon the Preadmission Screen, the Post-Admission Evaluation, and the therapy evaluations. Admission Dx/Comorbidities: (1) Acute CVA (cerebrovascular accident) Status: Acute ICD Codes: I63.9 - Cerebral infarction, unspecified (2) HTN (hypertension) Status: Acute ICD Codes: I10 - Essential (primary) hypertension (3) HLD (hyperlipidemia) Status: Acute ICD Codes: E78.5 - Hyperlipidemia, unspecified Assessment/Plan Assessment and Plan Assess & Plan/Chief Complaint Assessment: 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 HTN HLP h/o breast cancer Smoker Plan: Aggressive rehab Walker with platform Monitor closely MOHIT BOYKIN DO December 10, 2020 17:27
[2020-12-10] MEDS ORDERED: ZOLPIDEM 5 MG (AMBIEN) TAB PO PRN (17:30)
[2020-12-10] MEDS ORDERED: CATHETER FLUSH 10 ML SYR IV PRN (17:30)
[2020-12-10] MEDS ORDERED: LORazepam 0.5 MG (ATIVAN) TABLET PO PRN (17:30)
[2020-12-10] MEDS: DOCUSATE SODIUM 100 MG (COLACE) CAP PO SCH (20:09)
[2020-12-10] MEDS: polyethylene glycoL POWDER 17 GM (MIRALAX) PACK PO SCH (20:09)
[2020-12-10] MEDS: SENNA W/DOCUSATE (SENOKOT S) TABLET PO SCH (20:09)
[2020-12-10] MEDS: NYSTATIN ORAL SUSP 5 ML UDC PO SCH (20:20)
[2020-12-10] MEDS: MELATONIN 3 MG TABLET PO SCH (20:20)
[2020-12-10 20:50] VITALS: BP 145/65
[2020-12-10] MEDS ORDERED: polyethylene glycoL POWDER 17 GM (MIRALAX) PACK PO SCH (21:00)
[2020-12-10] MEDS ORDERED: DOCUSATE SODIUM 100 MG (COLACE) CAP PO SCH (21:00)
[2020-12-11 05:45] LABS: BASOPHILS # (AUTO) 0.1 10^3/uL (0.0-0.1); BASOPHILS % (AUTO) 1 % (0-10); EOSINOPHILS # (AUTO) 0.2 10^3/uL (0.0-0.3); EOSINOPHILS % (AUTO) 3 % (0-10); HEMATOCRIT 36 % (35-52); HEMOGLOBIN 11.7 g/dL (11.5-16.0); LYMPHOCYTES # (AUTO) 1.5 10^3/uL (1.0-4.0); LYMPHOCYTES % (AUTO) 20 % (12-44); MEAN CORPUSCULAR HEMOGLOBIN 30 pg (25-34); MEAN CORPUSCULAR HGB CONC 33 g/dL (32-36); MEAN CORPUSCULAR VOLUME 91 fL (80-99); MONOCYTES # (AUTO) 0.6 10^3/uL (0.0-1.0); MONOCYTES % (AUTO) 8 % (0-12); NEUTROPHILS # (AUTO) 4.9 10^3/uL (1.8-7.8); NEUTROPHILS % (AUTO) 68 % (42-75); PLATELET COUNT 324 10^3/uL (130-400); WHITE BLOOD COUNT 7.2 10^3/uL (4.3-11.0)
[2020-12-11] MEDS: MULTIVIT W/MINERALS TAB (THERAGRAN M) PO SCH (05:54)
[2020-12-11] MEDS: CYANOCOBALAMIN 1,000 MCG (VITAMIN B-12) TABLET PO SCH (05:55)
[2020-12-11 06:08] LABS: ALBUMIN 3.6 GM/DL (3.2-4.5)
[2020-12-11 06:09] LABS: CHLORIDE 104 MMOL/L (98-107); POTASSIUM 4.2 MMOL/L (3.6-5.0); SODIUM 140 MMOL/L (135-145)
[2020-12-11 06:10] LABS: CALCIUM 9.2 MG/DL (8.5-10.1)
[2020-12-11 06:11] LABS: GLUCOSE 114 MG/DL (70-105); TOTAL PROTEIN 6.5 GM/DL (6.4-8.2)
[2020-12-11 06:12] LABS: CARBON DIOXIDE 28 MMOL/L (21-32)
[2020-12-11 06:13] LABS: BILIRUBIN,TOTAL 0.7 MG/DL (0.1-1.0)
[2020-12-11 06:14] LABS: ALKALINE PHOSPHATASE 58 U/L (40-136)
[2020-12-11 06:15] LABS: CREATININE SERUM 0.73 MG/DL (0.60-1.30); GFR ESTIMATED > 60
[2020-12-11 06:16] LABS: BUN/CREATININE RATIO 27
[2020-12-11 06:18] LABS: ALANINE AMINOTRANSFERASE 32 U/L (0-55)
--- NOTE | 2020-12-11 06:22 | PM&R Progress Note ---
Subjective HPI/CC On Admission Date Seen by Provider: December 11, 2020 Time Seen by Provider: 10:15 Subjective/Events-last exam 12/11/20: Pt settling in well today Doing very well Taking pills okay Feeds herself Flaccidity on the left side noted Bowels moved two days ago Review of Systems General: Fatigue, Malaise Neurological: Weakness, Incoordination, Change in speech Objective Exam Vital Signs Vital Signs Date Time Temp Pulse Resp B/P (MAP) Pulse Ox O2 Delivery O2 Flow Rate FiO2 12/11/20 20:30 Room Air 12/11/20 19:02 75 12/11/20 07:54 36.1 18 127/60 (82) 95 Capillary Refill : General Appearance: No Apparent Distress, WD/WN, Chronically ill, Thin HEENT: PERRL/EOMI, Normal ENT Inspection, Pharynx Normal Neck: Full Range of Motion, Normal Inspection, Non Tender, Supple, Carotid Bruit Respiratory: Chest Non Tender, Lungs Clear, Normal Breath Sounds, No Accessory Muscle Use, No Respiratory Distress Cardiovascular: Regular Rate, Rhythm, No Edema, No Gallop, No JVD, No Murmur, Normal Peripheral Pulses Gastrointestinal: Normal Bowel Sounds, No Organomegaly, No Pulsatile Mass, Non Tender, Soft Back: Normal Inspection, No CVA Tenderness, No Vertebral Tenderness Extremity: Normal Capillary Refill, Normal Inspection, Normal Range of Motion, Non Tender, No Calf Tenderness, No Pedal Edema Neurologic/Psychiatric: Alert, Oriented x3, Abnormal Gait, Aphasia, Depressed Affect, Facial Droop, Motor Weakness (left sided flaccidity) Skin: Normal Color, Warm/Dry Lymphatic: No Adenopathy Results/Procedures Lab Laboratory Tests 12/11/20 05:05 Patient resulted labs reviewed. FIM Transfers Therapy Code Descriptions/Definitions Functional [place] Measure: 0=Not Assessed/NA 4=Minimal Assistance 1=Total Assistance 5=Supervision or Setup 2=Maximal Assistance 6=Modified [place] 3=Moderate Assistance 7=Complete IndependenceSCALE: Activities may be completed with or without assistive devices. 9-Vffxqmbdfa-mgyyyyt completes the activity by him/herself with no assistance from a helper. 5-Set-up or Clean-up Assistance-helper sets up or cleans up; patient completes activity. [place] assists only prior to or following the activity. 4-Supervision or Touching Assistance-helper provides verbal cues and/or touching/steadying and/or contact guard assistance as patient completes activity. Assistance may be provided throughout the activity or intermittently. 3-Partial/Moderate Assistance-helper does LESS THAN HALF the effort. [place] lifts, holds or supports trunk or limbs, but provides less than half the effort. 2-Substantial/Maximal Assistance-helper does MORE THAN HALF the effort. [place] lifts or holds trunk or limbs and provides more than half the effort. 1-Baaipywpv-ylcpzw does ALL the effort. Patient does none of the effort to complete the activity. Or, the assistance of 2 or more helpers is required for the patient to complete the activity. If activity was not attempted, code reason: 7-Patient Refused. 9-Not Applicable-not attempted and the patient did not perform the activity before the current illness, exacerbation or injury. 10-Not Attempted due to Environmental Limitations-(lack of equipment, weather restraints, etc.). 88-Not Attempted due to Medical Conditions or Safety Concerns. Assessment/Plan Assessment and Plan Assess & Plan/Chief Complaint Assessment: 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 HTN HLP h/o breast cancer Smoker Plan: Aggressive rehab Walker with platform Monitor closely 12/11/20: Monitor BP Cardiology consultation (1) Acute CVA (cerebrovascular accident) Status: Acute (2) HTN (hypertension) Status: Acute (3) HLD (hyperlipidemia) Status: Acute MOHIT BOYKIN DO December 11, 2020 06:22
[2020-12-11 07:54] VITALS: BP 127/60
[2020-12-11] MEDS: NICOTINE 14 MG (NICODERM) PATCH TD SCH (08:34)
[2020-12-11] MEDS: NYSTATIN ORAL SUSP 5 ML UDC PO SCH ×4 (08:34→19:48)
[2020-12-11] MEDS: lisINopril 20 MG (PRINIVIL) TABLET PO SCH (08:34)
[2020-12-11] MEDS: ASPIRIN E.C. 81 MG (ECOTRIN) TAB PO SCH (08:34)
[2020-12-11] MEDS: NICOTINE PATCH REMOVAL TP SCH (08:34)
[2020-12-11] MEDS: CALCIUM CARBONATE 600 MG (CALCARB) TAB PO SCH (08:34)
[2020-12-11] MEDS ORDERED: PATCH REMOVAL TP SCH (09:00)
[2020-12-11] MEDS: SENNA W/DOCUSATE (SENOKOT S) TABLET PO SCH ×2 (09:25→19:32)
[2020-12-11] MEDS: DOCUSATE SODIUM 100 MG (COLACE) CAP PO SCH ×2 (09:25→19:32)
--- NOTE | 2020-12-11 10:39 | ST Cognitive Linguistic Eval ---
Speech Evaluation-General Medical Diagnosis CVA Onset Date: December 02, 2020 Therapy Diagnosis Therapy Diagnosis: Cognitive-communication Precautions Precautions/Isolations: Fall Prevention, Standard Precautions Referral Referring Physician: Dr. Feng Medical History Pertinent Medical History: Breast CA S/P Mastectomy, Smoking Reviewed History: Yes Social History Home: Single Level Current Living Status: Alone Speech PLF-Current Status Prior Level of Function Patient lived at home where she was independent for her daily needs. Subjective Patient was pleasant and cooperative with the cognitive assessment. Language Eval: Auditory Comprehends Simple Yes/No Ques: Functional Indent/Objects [place]: Functional Ident/Pics in [place]: Functional Follows 1-Step Commands: Functional Follows Complex Directions: Functional Follows General Conversations: Functional Language Eval: Verbal Language Completes Spontaneous Greeting: Functional Produces Auto, Serial Info: Functional Imitates Simple Words/Phrases: Functional Word Finding: Functional Requests Basic Needs: Functional States Basic Personal Info: Functional Expresses Complex Ideas: Functional Objective Cognitive Domain Attention: WNL Memory: Mild Problem Solving: Mild Executive Functions: WNL Visuospatial Skills: WNL Composite Severity Rating: Mild Clock Drawing Severity Rating: Mild Objective Formal/Standardized Tests [facility] Status ([facility]) Results 25/30, Mild Neurocognitive Disorder Oral Motor/Speech Production Patient's speech is at 80% intelligible Impression Patient is a pleasant 75 y/o female who was admitted to the ARU s/p CVA. Patient is currently on a Dysphagia I diet level which will be assessed during her stay here. She was given the SLUMS with a score of 25/30 obtained. This score is within the MNCD range of function. Patient's speech is mildly slurred with 80% intelligibility. Patient will receive cognitive, speech and dysphagia therapy. Speech Patient Assess Expression of Ideas/Wants: Expression (4) Understanding Verbal Content: Understands (4) Brief Interview-Mental Status: Yes Repetition of Three Words: Three (3) Temporal Orientation: Year: Correct (3) Temporal Orientation: Month: Accurate within 5 days(2) Temporal Orientation: Day: Correct (1) Recall : Wear to say "Sock": Yes,after cueing (1) Recall : Color: No, could not recall (0) Recall : Bed: Yes,after cueing (1) Memory/Recall Ability: Current season, That he or she is in a hsp/hsp unit Speech Short Term Goals Short Term Goals Short Term Goals 1) Patient will complete safety awareness tasks related to her daily needs at 80% or greater with minimal cues. 2) Patient will complete speech tasks at 80% or greater with minimal cues. 3) Patient will complete safe oral intake at 90% or greater with least restrictive diet. 4) Patient will utilize compensatory strategies for safe intake at 90% or greater. Speech Business Continuity Planning Director Goals Business Continuity Planning Director Goals Patient will improve cognitive-communication abilities in order to complete daily living tasks with minimal assist. Patient will maintain adequate nutrition/hydration via safe effective swallow function. Speech-Plan Patient/Family Goals Patient/Family Goals: Patient plans on returning to her home upon discharge. Treatment Plan Speech Therapy Treatment Plan: Continue Plan of Care Treatment Duration: December 19, 2020 Frequency: 4 times per week (Patient will receive skilled ST 4-5x per week) Estimated Hrs Per Day: .5 hour per day Rehab Potential: Good Barriers to Learning: Patient's recent CVA with deficits, dysphagia Pt/Family Agrees to Plan: Yes Safety Risks/Education Teaching Recipient: Patient Teaching Methods: Discussion Response to Teaching: Verbalize Understanding Education Topics Provided: Safety within her room, safety with oral intake of modified diet, communication of wants/needsd Time Speech Therapy Time In: 10:30 Speech Therapy Time Out: 11:00 Total Billed Time: 30 Billed Treatment Time 1, KARLIE TRIANA, TRACY, DYST ARNULFO Barrett December 11, 2020 10:39
--- NOTE | 2020-12-11 11:33 | Occupational Therapy Eval ---
OT Evaluation-General/PLF Medical Diagnosis Admission Date December 10, 2020 at 16:44 Medical Diagnosis: CVA Onset Date: December 02, 2020 Therapy Diagnosis Therapy Diagnosis: Left sided weakness, Decreased ADL skills Height/Weight Height (Feet): 5 Height (Inches): 8.00 Weight (Pounds): 160 Weight (Ounces): 0.0 Precautions Precautions/Isolations: Fall Prevention, Standard Precautions Weight Bear Status Weight Bearing Restriction: Weight Bearing/Tolerated Referral Physician: Dr. Feng Referral Reason: Activity Tolerance, Self Care, Evaluation/Treatment, Strengthening/ROM Medical History Pertinent Medical History: Breast CA S/P Mastectomy, Smoking Current History Pt. had TPA at hospital. Reviewed History: Yes Social History Home: Apartment Current Living Status: Alone Entry Into Home: Level Entry ADL-Prior Level of Function SCALE: Activities may be completed with or without assistive devices. 5-Utewvavtxi-ocefsdy completes the activity by him/herself with no assistance from a helper. 5-Set-up or Clean-up Assistance-helper sets up or cleans up; patient completes activity. [place] assists only prior to or following the activity. 4-Supervision or Touching Assistance-helper provides verbal cues and/or touching/steadying and/or contact guard assistance as patient completes activity. Assistance may be provided throughout the activity or intermittently. 3-Partial/Moderate Assistance-helper does LESS THAN HALF the effort. [place]put[place] lifts, holds or supports trunk or limbs, but provides less than half the effort. 2-Substantial/Maximal Assistance-helper does MORE THAN HALF the effort. [place] lifts or holds trunk or limbs and provides more than half the effort. 4-Xkmtsxgvb-aowklb does ALL the effort. Patient does none of the effort to complete the activity. Or, the assistance of 2 or more helpers is required for the patient to complete the activity. If activity was not attempted, code reason: 7-Patient Refused. 9-Not Applicable-not attempted and the patient did not perform the activity before the current illness, exacerbation or injury. 10-Not Attempted due to Environmental Limitations-(lack of equipment, weather restraints, etc.). 88-Not Attempted due to Medical Conditions or Safety Concerns. ADL PLOF Comments Pt. lives in [place]. She drives but only in town and not on highway. Pt. has walker but does not use it. Only bought it because it was on sale. Pt. plays [employer] at the [employer] and likes to go to the [employer] for fun. 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 Pt. is typically independent at home with all ADLs. Self Care: Independent Functional Cognition: Independent DME/Equipment: Bath Chair, Shower DME/Equipment Comments Pt. reports that she has a shower seat but that she needs a new one. 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 Drive Self: Yes OT Current Status Subjective No pain reported. Appearance Pt. up in reclining chair. She is alert and oriented. Pt. is agreeable to work with OT. Mental Status/Objective Patient Orientation: Person, Place, Time, Situation Current Upper Extremity ROM Right- WFL Left UE- No active movement at this time. No subluxation or pain noted. Upper Extremity Coordination Impaired left UE Upper Extremity Strength Flaccid left UE ADL-Treatment Eating (QC): 4 Oral Hygiene (QC): 7 (Pt. declines oral care this a.m. as she has dentures. States that she only soaks them at night but does brush her tongue.) Shower/Bathe Self (QC): 2 Upper Body Dressing (QC): 2 Lower Body Dressing (QC): 1 On/Off Footwear (QC): 3 Toileting Hygiene (QC): 1 Other Treatments Pt. seen this date for initial evaluation s/p CVA. Pt. agrees to treatment. Pt. transfers sit-stand with max assist to pivot to shower chair. Requires max assist in shower. Pt. is able to bathe upper thighs and left arm, chest. Requires assistance for all other parts. After shower, pt. attempts to dry self but needs max assist for thorough dry. Pt. is able to don shirt over head after OT assists with threading bilateral arms. OT assists to don over trunk. Pt. able to thread brief over right foot, but unable to don over left. Pt. able to don bilateral feet in pants, but requires max assist of one person to stand pt., and then assist over another person to pull pants up in stand. Pt. is transferred to chair via stand pivot after shower and is able to brush hair with mod assist for thoroughness. Transfers to recliners with max assist after with all needs met. Education OT Patient Education: Correct positioning, Modified ADL techniques, Progress toward Goal/Update tx plan, Purpose of tx/functional activities, Reviewed precautions, Rehab process, Transfer techniques Teaching Recipient: Patient Teaching Methods: Demonstration, Discussion Response to Teaching: Verbalize Understanding, Return Demonstration OT Short Term Goals Short Term Goals Time Frame: Dec 25, 2020 Eatin Oral hygiene: 3 Toileting hygiene: 3 Shower/bathe self: 3 Upper body dressin Lower body dressin Putting on/taking off footwear: 3 OT Financial Analyst Goals Financial Analyst Goals Time Frame: Jan 08, 2021 Eating (QC): 6 Oral Hygiene (QC): 5 Toileting Hygiene (QC): 4 Shower/Bathe Self (QC): 4 Upper Body Dressing (QC): 5 Lower Body Dressing (QC): 4 On/Off Footwear (QC): 4 Additional Goals: 1-Demonstrate ADL Tasks, 2-Verbalize Understanding, 3- ImproveStrength/Helene 1=Demonstrate adherence to instructed precautions during ADL tasks. 2=Patient will verbalize/demonstrate understanding of assistive devices/modifications for ADL. 3=Patient will improve strength/tolerance for activity to enable patient to perform ADL's. OT Education/Plan Problem List/Assessment Assessment: Decreased Activ Tolerance, Decreased UE Strength, Dependent Transfe rs, Impaired Bed Mobility, Impaired Coordination, Impaired Funct Balance, Impaired I ADL's, Impaired Self-Care Skills, Restricted Funct UE ROM Discharge Recommendations Plan/Recommendations: Continue POC Therapy Discharge Recommendati: Post Acute OT Treatment Plan/Plan of Care Treatment,Training & Education: Yes Patient would benefit from OT for education, treatment and training to promote independence in ADL's, mobility, safety and/or upper extremity function for ADL's. Plan of Care: ADL Retraining, Functional Mobility, Group Exercise/Act as Ind, UE Funct Exercise/Act Treatment Duration: Jan 08, 2021 Frequency: At least 5 of 7 days/Wk (IRF) Estimated Hrs Per Day: 1.5 hours per day Agreement: Yes Rehab Potential: Good Time/GCodes Start Time: 08:15 Stop Time: 09:30 Total Time Billed (hr/min): 75 Billed Treatment Time 1, EVH x 15minutes, ADL x 60minutes MIGUEL CARRIZALES OT December 11, 2020 11:32
--- NOTE | 2020-12-11 11:55 | Physical Therapy Evaluation ---
PT Evaluation-General Medical Diagnosis Admission Date December 10, 2020 at 16:44 Medical Diagnosis: CVA Onset Date: December 02, 2020 Therapy Diagnosis Therapy Diagnosis: impaired mobility, strength, endurance, balance Height/Weight Height (Feet): 5 Height (Inches): 8.00 Weight (Pounds): 160 Weight (Ounces): 0.0 Precautions Precautions/Isolations: Fall Prevention, Standard Precautions Referral Physician: Dr. Feng Reason for Referral: Evaluation/Treatment Medical History Pertinent Medical History: Breast CA S/P Mastectomy, Smoking Reviewed History: Yes Social History Home: Apartment Current Living Status: Alone Entry Into Home: Level Entry Prior Prior Level of Function SCALE: Activities may be completed with or without assistive devices. 1-Olauwosrng-dfycliv completes the activity by him/herself with no assistance from a helper. 5-Set-up or Clean-up Assistance-helper sets up or cleans up; patient completes activity. [place] assists only prior to or following the activity. 4-Supervision or Touching Assistance-helper provides verbal cues and/or touching/steadying and/or contact guard assistance as patient completes activity. Assistance may be provided throughout the activity or intermittently. 3-Partial/Moderate Assistance-helper does LESS THAN HALF the effort. [place] lifts, holds or supports trunk or limbs, but provides less than half the effort. 2-Substantial/Maximal Assistance-helper does MORE THAN HALF the effort. [place] lifts or holds trunk or limbs and provides more than half the effort. 5-Gakmxrfjn-otjqif does ALL the effort. Patient does none of the effort to complete the activity. Or, the assistance of 2 or more helpers is required for the patient to complete the activity. If activity was not attempted, code reason: 7-Patient Refused. 9-Not Applicable-not attempted and the patient did not perform the activity before the current illness, exacerbation or injury. 10-Not Attempted due to Environmental Limitations-(lack of equipment, weather restraints, etc.). 88-Not Attempted due to Medical Conditions or Safety Concerns. Bed Mobility: 6 Transfers (B,C,W/C): 6 Gait: 6 Stairs: 6 Indoor Mobility (Ambulation): Independent Stairs: Independent PT Evaluation-Current Subjective Patient in bed pre tx, agrees to PT, has no complaints of pain. Pt/Family Goals "to be able to walk again" Objective Patient Orientation: Person, Place, Situation ROM/Strength ROM Lower Extremities WNL Strength Lower Extremities RLE (hip flexion 4/5, knee flexion 4/5, knee extension 4+/5, dorsiflexion 4+/5), LLE (hip flexion 3/5, knee flexion 3+/5, knee extension 3+/5, dorsiflexion 3/5) Neuromuscular (Tone, Coordination, Reflexes) Patient appears to have intact peripheral vision bilaterally and good tracking Sensory Vision: Functional Sensation Right Lower Extremit: Intact Sensation Left Lower Extremity: Impaired Sensation Lower Extremities Patient has some numbness in her left foot. Transfers Roll Left & Right (QC): 3 Sit to Lying (QC): 3 Lying to Sitting/Side of Bed(Q: 3 Sit to Stand (QC): 3 Chair/Hwp-ib-Binle Xfer(QC): 3 Toilet Transfer (QC): 3 Car Transfer (QC): 3 Patient performs bed mobility with min assist, supine <-> sit min assist, sit <- > stand mod assist, transfers mod assist, car transfer mod assist. Patient needs cues for hand placement and positioning. Leans to the left when standing, slight pushing to the left also. Gait Does the Patient Walk?: Yes Mode of Locomotion: Both Anticipated Mode of Locomotion: Both Walk 10 feet (QC): 88 Walk 50 ft with 2 Turns(QC): 88 Walk 150 ft (QC): 88 Walking 10ft/uneven surface-QC: 88 Distance: 6'x3 Gait Assistive Device: Parallel Bars Comments/Gait Description Patient can ambulate 6' in the parallel bars with mod assist, WC follow, patient is able to advance her left leg but she scissors, leans to the left, pushes slightly to the left, and drifts to the right fairly severely Wheelchair Training Does the Pt Use a Wheelchair?: Yes Distance: 50' Wheel 50 ft with 2 turns (QC): 3 Wheel 150 ft (QC): 88 Type of Wheelchair: Manual Stairs 1 Step (curb) (QC): 88 4 Steps (QC): 88 12 Steps (QC): 88 Balance Sitting Static: Fair Sitting Dynamic: Fair Standing Static: Poor Standing Dynamic: Poor Picking up an Object (QC): 88 Treatment Nustep level 4 for 15 min Assessment/Needs Patient in recliner post tx with nurse call, phone, tray, all needs met. Patient has impaired mobility, strength, endurance, balance. Patient needs mod assist during standing and transfers. She does have strength in her left leg and can take steps during ambulation Rehab Potential: Fair PT Short Term Goals Short Term Goals Time Frame: December 18, 2020 Roll Left & Right: 4 Sit to lyin Lying to sitting on side of be: 4 Sit to stand: 3 Chair/uqe-of-gebpx transfer: 3 Walk 10 feet: 3 Walk 50 feet with two turns: 3 PT Half-Way Goals Sweater Designer Goals PT Half-Way Goals Time Frame: Jan 01, 2021 Roll Left & Right (QC): 6 Sit to Lying (QC): 6 Lying-Sitting on Side/Bed(QC): 6 Sit to Stand (QC): 4 Chair/Gsa-ii-Qgvox Xfer(QC): 4 Toilet Transfer (QC): 4 Car Transfer (QC): 4 Does the Patient Walk: Yes Walk 10 feet (QC): 4 Walk 50ft with 2 Turns (QC): 4 Walk 150 ft (QC): 88 Walking 10ft on Uneven Surface: 3 1 Step (curb) (QC): 3 4 Steps (QC): 88 12 Steps (QC): 88 Picking up an Object (QC): 88 Wheel 50 feet with 2 turns (QC: 5 Wheel 150 feet: 5 PT Plan Problem List Problem List: Activity Tolerance, Functional Strength, Safety, Balance, Gait, Transfer, Bed Mobility, ROM Treatment/Plan Treatment Plan: Continue Plan of Care Treatment Plan: Bed Mobility, Education, Functional Activity Helene, Functional Strength, Group Therapy, Gait, Safety, Therapeutic Exercise, Transfers Treatment Duration: Jan 01, 2021 Frequency: At least 5 of 7 days/Wk (IRF) Estimated Hrs Per Day: 1.5 hours per day Patient and/or Family Agrees t: Yes Safety Risks/Education Patient Education: Gait Training, Transfer Techniques, Correct Positioning, W/C Management, Safety Issues Teaching Recipient: Patient Teaching Methods: Demonstration, Discussion Response to Teaching: Reinforcement Needed Discharge Recommendations Plan Patient will perform bed mobility and transfer training, balance and endurance training, functional strengthening, stair training, gait training, and education, to improve functional mobility and independence at home. Therapy Discharge Recommendati: Scheduled Assistance, Home & Family, Post Acute PT Time/GCodes Time In: 1100 Time Out: 1200 Total Billed Treatment Time: 60 Total Billed Treatment 1 visit EVM 15' FA 15' GT 15' EX 15' BHARAT THOMAS PT December 11, 2020 11:55
[2020-12-11] MEDS: ENOXAPARIN 40 MG/0.4 ML (LOVENOX) SYR SC SCH (11:58)
--- NOTE | 2020-12-11 12:03 | Consultation-Cardiology ---
HPI-Cardiology Cardiology Consultation Date of Consultation 12/11/20 Date of Admission 12/11/20 Time Seen by Provider: 11:45 Indication: CVA HPI Juliet Fernandez is a 75 y/o F with no PMH. History of smoking and untreated HTN. She reported to the ED on 12/02 with L sided weakness that began the night before. During her stay in the ED, her symptoms restarted and she was given tPA and admitted to ICU for management. She was started on ASA 24 hours after tPA. She was found to have a R frontal cryptogenic stroke. On 12/11 Pt was admitted to IRF and cardiology was consulted to work up possible causes of her stroke. Pt reports no history of cp/palpitations/dizziness/syncope. No heart history. Mother in her 50s due to cardiovascular disease. Pt appears comfortable today sitting up in chair. Weakness noted in left UE and LE, limited sensory deficits. Denies any cp/palpitations/sob/dizziness/syncope. Home Medications & Allergies Allergies: Coded Allergies: Sulfa (Sulfonamide Antibiotics) (Unverified Allergy, Unknown, 12/02/20) Home Medication List Reviewed: Yes PNE-Nmtopo-Jeycwd Hx Patient Social History Marital Status: single Employed/Student: retired Smoking Status: Current Everyday Smoker Type Used: Cigarettes Recent Hopitalizations: No Have you traveled recently?: No Alcohol Use?: Yes Immunizations Up To Date Tetanus Booster (TDap): Unknown Date of Pneumonia Vaccine: May 29, 2018 Date of Influenza Vaccine: Apr 10, 2018 Past Medical History None Family Medical History Significant Family History: Heart Disease (Mother in 50s due to CV causes) Family History: Alcoholism G8 BROTHER Cardiovascular disease 19 MOTHER Completed stroke 19 FATHER FH: throat cancer G8 SISTER Hypertension 19 MOTHER Myocardial infarction 19 MOTHER Review of Systems-General Review of Systems Constitutional: see HPI, malaise, weakness EENTM: no symptoms reported Respiratory: see HPI; No cough, No dyspnea on exertion, No hemoptysis, No orthopnea, No phlegm, No short of breath, No stridor, No wheezing, No other Cardiovascular: see HPI; No chest pain, No edema, No Hx of Intervention, No palpitations, No syncope, No vascular heart diseas, No other Gastrointestinal: no symptoms reported Genitourinary: no symptoms reported Musculoskeletal: back pain Skin: no symptoms reported Psychiatric/Neurological: Weakness (left sided) Reviewed Test Results Reviewed Test Results Lab Laboratory Tests 12/11/20 05:05 Laboratory Tests Test 12/11/20 05:05 Range/Units White Blood Count 7.2 4.3-11.0 10^3/uL Red Blood Count 3.94 3.80-5.11 10^6/uL Hemoglobin 11.7 11.5-16.0 g/dL Hematocrit 36 35-52 % Mean Corpuscular Volume 91 80-99 fL Mean Corpuscular Hemoglobin 30 25-34 pg Mean Corpuscular Hemoglobin Concent 33 32-36 g/dL Red Cell Distribution Width 13.6 10.0-14.5 % Platelet Count 324 130-400 10^3/uL Mean Platelet Volume 10.0 9.0-12.2 fL Immature Granulocyte % (Auto) 1 % Neutrophils (%) (Auto) 68 42-75 % Lymphocytes (%) (Auto) 20 12-44 % Monocytes (%) (Auto) 8 0-12 % Eosinophils (%) (Auto) 3 0-10 % Basophils (%) (Auto) 1 0-10 % Neutrophils # (Auto) 4.9 1.8-7.8 10^3/uL Lymphocytes # (Auto) 1.5 1.0-4.0 10^3/uL Monocytes # (Auto) 0.6 0.0-1.0 10^3/uL Eosinophils # (Auto) 0.2 0.0-0.3 10^3/uL Basophils # (Auto) 0.1 0.0-0.1 10^3/uL Immature Granulocyte # (Auto) 0.0 0.0-0.1 10^3/uL Sodium Level 140 135-145 MMOL/L Potassium Level 4.2 3.6-5.0 MMOL/L Chloride Level 104 98-107 MMOL/L Carbon Dioxide Level 28 21-32 MMOL/L Anion Gap 8 5-14 MMOL/L Blood Urea Nitrogen 20 H 7-18 MG/DL Creatinine 0.73 0.60-1.30 MG/DL Estimat Glomerular Filtration Rate > 60 BUN/Creatinine Ratio 27 Glucose Level 114 H 70-105 MG/DL Calcium Level 9.2 8.5-10.1 MG/DL Corrected Calcium 9.5 8.5-10.1 MG/DL Total Bilirubin 0.7 0.1-1.0 MG/DL Aspartate Amino Transf (AST/SGOT) 26 5-34 U/L Alanine Aminotransferase (ALT/SGPT) 32 0-55 U/L Alkaline Phosphatase 58 40-136 U/L Total Protein 6.5 6.4-8.2 GM/DL Albumin 3.6 3.2-4.5 GM/DL Physical Exam Physical Exam Vital Signs Vital Signs - First Documented 12/10/20 12/11/20 17:09 07:54 Temp 36.2 Pulse 82 Resp 18 B/P (MAP) 161/65 (97) Pulse Ox 91 O2 Delivery Room Air Capillary Refill : Height, Weight, BMI Height: 5'8.00" Weight: 160lbs. 0.0oz. [id number]; 23.13 BMI Method:Stated General Appearance: No Apparent Distress, WD/WN, Chronically ill, Thin Eyes: Bilateral Eye Normal Inspection, Bilateral Eye PERRL HEENT: PERRL/EOMI, Normal ENT Inspection, Pharynx Normal Neck: Full Range of Motion, Normal Inspection, Non Tender, Supple, Carotid Bruit Respiratory: Chest Non Tender, Lungs Clear, Normal Breath Sounds, No Accessory Muscle Use, No Respiratory Distress Cardiovascular: Regular Rate, Rhythm, No Edema, No Gallop, No JVD, No Murmur, Normal Peripheral Pulses Gastrointestinal: Normal Bowel Sounds, No Organomegaly, No Pulsatile Mass, Non Tender, Soft Back: Normal Inspection, No CVA Tenderness, No Vertebral Tenderness Extremity: Normal Capillary Refill, Normal Inspection, Normal Range of Motion, Non Tender, No Calf Tenderness, No Pedal Edema Neurologic/Psychiatric: Alert, Oriented x3, Abnormal Gait, Aphasia, Depressed Affect, Facial Droop, Motor Weakness (left sided flaccidity) Skin: Normal Color, Warm/Dry Lymphatic: No Adenopathy A/P-Cardiology Admission Diagnosis Cryptogenic stroke HTN HLD Assessment/Plan Cryptogenic stroke - MRI showed posterior R frontal lobe stroke possibly in splenium of corpus collosum; telemetry during her stay to monitor for possible Afib, continue ASA, place the patient on telemetry and monitor for arrhythmia, evaluate twelve-lead EKG. Hypertension, mildly elevated, we will continue to monitor at this time, trying to keep heart rate between 140 and 160 initially then will try to adjust to achieve adequate blood pressure control Hyperlipidemia started on Lipitor. Monitor lipids General debility/weakness - PT/OT with jaun GARCIAx for DVT prophylaxis Supervisory-Addendum Brief Verification & Attestation Participated in pt care: history, MDM, physical Personally performed: exam, history, MDM, supervision of care Care discussed with: Medical Student Procedures: n/a Results interpretation: Verified all documentation Verification and Attestation of Medical Student E/M Service A medical student performed and documented this service in my presence. I reviewed and verified all information documented by the medical student and made modifications to such information, when appropriate. I personally performed the physical exam and medical decision making. Nir Newby, December 11, 2020,12:33 МАРЯИ TREVINO MED STUDENT December 11, 2020 12:03 NIR NEWBY MD December 11, 2020 12:33
--- NOTE | 2020-12-11 14:35 | Occupational Ther Daily Note ---
OT Current Status-Daily Note Subjective Pt alert, sitting on [facility]. Pt agrees to therapy. No c/o pain at this time. Will be co-treating with PT for a short time ([phone]) due to patient debility, poor endurance and balance, to assist with standing and positioning. Mental Status/Objective Patient Orientation: Person, Place, Time, Situation Attachments: Telemetry ADL-Treatment Pt requires assist x2 for toilet transfer and toileting. 1 person assist to stand, 1 person to cleanse after urination then pt attempts to assist with hiking pants. 1 person to transfer from [facility] to w/c. Pt left in care of PT. All needs met. Therapy Code Descriptions/Definitions Functional [place] Measure: 0=Not Assessed/NA 4=Minimal Assistance 1=Total Assistance 5=Supervision or Setup 2=Maximal Assistance 6=Modified [place] 3=Moderate Assistance 7=Complete IndependenceSCALE: Activities may be completed with or without assistive devices. 6-Lzqeidiozn-mgxiqda completes the activity by him/herself with no assistance from a helper. 5-Set-up or Clean-up Assistance-helper sets up or cleans up; patient completes activity. [place] assists only prior to or following the activity. 4-Supervision or Touching Assistance-helper provides verbal cues and/or touching/steadying and/or contact guard assistance as patient completes activity. Assistance may be provided throughout the activity or intermittently. 3-Partial/Moderate Assistance-helper does LESS THAN HALF the effort. [place] lifts, holds or supports trunk or limbs, but provides less than half the effort. 2-Substantial/Maximal Assistance-helper does MORE THAN HALF the effort. [place] lifts or holds trunk or limbs and provides more than half the effort. 9-Cbicvsdou-gvppnh does ALL the effort. Patient does none of the effort to complete the activity. Or, the assistance of 2 or more helpers is required for the patient to complete the activity. If activity was not attempted, code reason: 7-Patient Refused. 9-Not Applicable-not attempted and the patient did not perform the activity before the current illness, exacerbation or injury. 10-Not Attempted due to Environmental Limitations-(lack of equipment, weather restraints, etc.). 88-Not Attempted due to Medical Conditions or Safety Concerns. Toileting Hygiene (QC): 1 Toilet Transfer (QC): 1 OT Short Term Goals Short Term Goals Time Frame: Dec 25, 2020 Eatin Oral hygiene: 3 Toileting hygiene: 3 Shower/bathe self: 3 Upper body dressin Lower body dressin Putting on/taking off footwear: 3 OT Fryer Operator Goals Residential Goals Time Frame: Jan 08, 2021 Eating (QC): 6 Oral Hygiene (QC): 5 Toileting Hygiene (QC): 4 Shower/Bathe Self (QC): 4 Upper Body Dressing (QC): 5 Lower Body Dressing (QC): 4 On/Off Footwear (QC): 4 Additional Goals: 1-Demonstrate ADL Tasks, 2-Verbalize Understanding, 3- ImproveStrength/Helene 1=Demonstrate adherence to instructed precautions during ADL tasks. 2=Patient will verbalize/demonstrate understanding of assistive devices/modifications for ADL. 3=Patient will improve strength/tolerance for activity to enable patient to perform ADL's. OT Education/Plan Problem List/Assessment Assessment: Decreased Activ Tolerance, Decreased Safety Aware, Restricted Funct UE ROM Discharge Recommendations Plan/Recommendations: Continue POC Treatment Plan/Plan of Care Patient would benefit from OT for education, treatment and training to promote independence in ADL's, mobility, safety and/or upper extremity function for ADL's. Plan of Care: ADL Retraining, Functional Mobility, Group Exercise/Act as Ind, UE Funct Exercise/Act Treatment Duration: Jan 08, 2021 Frequency: At least 5 of 7 days/Wk (IRF) Estimated Hrs Per Day: 1.5 hours per day Agreement: Yes Rehab Potential: Good Time/GCodes Start Time: 14:25 Stop Time: 14:35 Total Time Billed (hr/min): 10 Billed Treatment Time 1 visit-ADL 1 (10 min) co-treat with PT [id number] ED SQUIRES December 11, 2020 14:35
--- NOTE | 2020-12-11 15:00 | Physical Therapy Daily Note ---
PT Daily Note-Current Subjective Patient on commode pre tx, OT already working with her, has no complaints of pain. Will be co-treating with OT for a short while due to patient debility, poor endurance and balance, to assist with standing and positioning while OT cleans and dresses after toileting. Appearance Patient in bed post tx with nurse call, phone, tray, all needs met, bed alarm on. Mental Status Patient Orientation: Person, Place, Situation Transfers SCALE: Activities may be completed with or without assistive devices. 6-Fvwiezvxvw-vvnfoyp completes the activity by him/herself with no assistance from a helper. 5-Set-up or Clean-up Assistance-helper sets up or cleans up; patient completes activity. [place] assists only prior to or following the activity. 4-Supervision or Touching Assistance-helper provides verbal cues and/or touching/steadying and/or contact guard assistance as patient completes activity. Assistance may be provided throughout the activity or intermittently. 3-Partial/Moderate Assistance-helper does LESS THAN HALF the effort. [place] lifts, holds or supports trunk or limbs, but provides less than half the effort. 2-Substantial/Maximal Assistance-helper does MORE THAN HALF the effort. [place] lifts or holds trunk or limbs and provides more than half the effort. 3-Hvladnqza-aoyoxv does ALL the effort. Patient does none of the effort to complete the activity. Or, the assistance of 2 or more helpers is required for the patient to complete the activity. If activity was not attempted, code reason: 7-Patient Refused. 9-Not Applicable-not attempted and the patient did not perform the activity before the current illness, exacerbation or injury. 10-Not Attempted due to Environmental Limitations-(lack of equipment, weather restraints, etc.). 88-Not Attempted due to Medical Conditions or Safety Concerns. Roll Left & Right (QC): 3 Sit to Lying (QC): 3 Sit to Stand (QC): 3 Chair/Hon-ep-Xivqh Xfer(QC): 3 Toilet Transfer (QC): 3 Mod assist for sit to stand from commode and to maintain balance for cleaning and dressing, stand pivot with mod assist to WC, after getting back to her room again mod assist stand pivot back to bed. Wheelchair Training Does the Pt Use a Wheelchair?: Yes Wheel 50 ft with 2 turns (QC): 3 Type of Wheelchair: Manual 120'x2, patient used right arm and both legs to propel, has trouble using LLE due to weakness and poor coordination, min assist Exercises sit to stand 3 sets of 5 from a slightly elevated therapy table, LAQ LLE for 5 min with 2# ankle weight Treatments PT worked on bed mobility and transfers, WC mobility, LE strengthening, standing and balance with toileting and dressing, OT worked on toileting and dressing Assessment Current Status: Fair Progress improved WC mobility PT Short Term Goals Short Term Goals Time Frame: December 18, 2020 Roll Left & Right: 4 Sit to lyin Lying to sitting on side of be: 4 Sit to stand: 3 Chair/syl-sv-ycttc transfer: 3 Walk 10 feet: 3 Walk 50 feet with two turns: 3 PT Global Upstream Marketing Manager Goals Shelter Goals PT Shelter Goals Time Frame: Jan 01, 2021 Roll Left & Right (QC): 6 Sit to Lying (QC): 6 Lying-Sitting on Side/Bed(QC): 6 Sit to Stand (QC): 4 Chair/Jsw-is-Lyipl Xfer(QC): 4 Toilet Transfer (QC): 4 Car Transfer (QC): 4 Does the Patient Walk: Yes Walk 10 feet (QC): 4 Walk 50ft with 2 Turns (QC): 4 Walk 150 ft (QC): 88 Walking 10ft on Uneven Surface: 3 1 Step (curb) (QC): 3 4 Steps (QC): 88 12 Steps (QC): 88 Picking up an Object (QC): 88 Wheel 50 feet with 2 turns (QC: 5 Wheel 150 feet: 5 PT Plan Problem List Problem List: Activity Tolerance, Functional Strength, Safety, Balance, Gait, Transfer, Bed Mobility, ROM Treatment/Plan Treatment Plan: Continue Plan of Care Treatment Plan: Bed Mobility, Education, Functional Activity Helene, Functional Strength, Group Therapy, Gait, Safety, Therapeutic Exercise, Transfers Treatment Duration: Jan 01, 2021 Frequency: At least 5 of 7 days/Wk (IRF) Estimated Hrs Per Day: 1.5 hours per day Patient and/or Family Agrees t: Yes Safety Risks/Education Patient Education: Transfer Techniques, Correct Positioning, W/C Management, Safety Issues Teaching Recipient: Patient Teaching Methods: Demonstration, Discussion Response to Teaching: Reinforcement Needed Time/GCodes Time In: 1425 Time Out: 1500 Total Billed Treatment Time: 35 Total Billed Treatment 1 visit EX 15' FA 20' BHARAT THOMAS PT December 11, 2020 15:00
--- NOTE | 2020-12-11 15:35 | Occupational Ther Daily Note ---
OT Current Status-Daily Note Subjective No pain reported. Mental Status/Objective Patient Orientation: Person, Place ADL-Treatment Therapy Code Descriptions/Definitions Functional [place] Measure: 0=Not Assessed/NA 4=Minimal Assistance 1=Total Assistance 5=Supervision or Setup 2=Maximal Assistance 6=Modified [place] 3=Moderate Assistance 7=Complete IndependenceSCALE: Activities may be completed with or without assistive devices. 6-Vzdfxuflao-oxdvnwx completes the activity by him/herself with no assistance from a helper. 5-Set-up or Clean-up Assistance-helper sets up or cleans up; patient completes activity. [place] assists only prior to or following the activity. 4-Supervision or Touching Assistance-helper provides verbal cues and/or touching/steadying and/or contact guard assistance as patient completes activity. Assistance may be provided throughout the activity or intermittently. 3-Partial/Moderate Assistance-helper does LESS THAN HALF the effort. [place] lifts, holds or supports trunk or limbs, but provides less than half the effort. 2-Substantial/Maximal Assistance-helper does MORE THAN HALF the effort. [place] lifts or holds trunk or limbs and provides more than half the effort. 3-Uhqgzbdmd-hqywsn does ALL the effort. Patient does none of the effort to complete the activity. Or, the assistance of 2 or more helpers is required for the patient to complete the activity. If activity was not attempted, code reason: 7-Patient Refused. 9-Not Applicable-not attempted and the patient did not perform the activity before the current illness, exacerbation or injury. 10-Not Attempted due to Environmental Limitations-(lack of equipment, weather restraints, etc.). 88-Not Attempted due to Medical Conditions or Safety Concerns. Toilet Transfer (QC): 2 Other Treatment Pt. in bed. OT provides gentle PROM to left UE in all planes. Pt. completed better assessment of left UE from previous evaluation. In gravity eliminated plane, pt. able to provide active movement in elbow flexion/extension. Slight etl analyst strength noted, as well as wrist extension. Pt. fatigues after completing several times. Pt. verbalizes she needs to use the toilet. Transferred supine-sit with min assist. Sit-stand with max assist and pivot to BSC with max assist. Max assist to pull down brief over hips. Pt. on BSC with call light and all needs met. Education OT Patient Education: Correct positioning, Exercise program, Modified ADL techniques, Progress toward Goal/Update tx plan, Purpose of tx/functional activities, Reviewed precautions, Rehab process, Transfer techniques Teaching Recipient: Patient Teaching Methods: Demonstration, Discussion Response to Teaching: Verbalize Understanding, Return Demonstration OT Short Term Goals Short Term Goals Time Frame: Dec 25, 2020 Eatin Oral hygiene: 3 Toileting hygiene: 3 Shower/bathe self: 3 Upper body dressin Lower body dressin Putting on/taking off footwear: 3 OT [facility] Coordinator Goals [facility] Coordinator Goals Time Frame: Jan 08, 2021 Eating (QC): 6 Oral Hygiene (QC): 5 Toileting Hygiene (QC): 4 Shower/Bathe Self (QC): 4 Upper Body Dressing (QC): 5 Lower Body Dressing (QC): 4 On/Off Footwear (QC): 4 Additional Goals: 1-Demonstrate ADL Tasks, 2-Verbalize Understanding, 3- ImproveStrength/Helene 1=Demonstrate adherence to instructed precautions during ADL tasks. 2=Patient will verbalize/demonstrate understanding of assistive devices/modifications for ADL. 3=Patient will improve strength/tolerance for activity to enable patient to perform ADL's. OT Education/Plan Problem List/Assessment Assessment: Decreased Activ Tolerance, Decreased UE Strength, Impaired I ADL's, Impaired Self-Care Skills, Restricted Funct UE ROM Discharge Recommendations Plan/Recommendations: Continue POC Treatment Plan/Plan of Care Treatment,Training & Education: Yes Patient would benefit from OT for education, treatment and training to promote independence in ADL's, mobility, safety and/or upper extremity function for ADL's. Plan of Care: ADL Retraining, Functional Mobility, Group Exercise/Act as Ind, UE Funct Exercise/Act Treatment Duration: Jan 08, 2021 Frequency: At least 5 of 7 days/Wk (IRF) Estimated Hrs Per Day: 1.5 hours per day Agreement: Yes Rehab Potential: Good Time/GCodes Start Time: 14:10 Stop Time: 14:25 Total Time Billed (hr/min): 15 Billed Treatment Time 1, Ex MIGUEL CARRIZALES OT December 11, 2020 15:35
[2020-12-11] MEDS: polyethylene glycoL POWDER 17 GM (MIRALAX) PACK PO SCH (19:32)
[2020-12-11] MEDS: MELATONIN 3 MG TABLET PO SCH (19:48)
[2020-12-11 20:30] VITALS: BP 107/53
--- NOTE | 2020-12-12 05:51 | Individualized Plan of Care ---
Individualized Plan of Care Rehab Nursing IPOC Order Admission Date December 10, 2020 at 16:44 Current Orders Orders Admission Order(Inpt,Obs,Sdc) (12/10/20 16:24) Vital Signs: Per Unit Policy ( 08,16,00 (12/10/20 16:24) Sequential Compression Device .admit (12/10/20 16:24) Investigator [employer]-Inpt Rehab Con (12/10/20 16:24) Rehab Nursing Orders-Ipoc (12/10/20 16:24) Physical Therapy Rehab Orders (12/10/20 16:24) Occupational Therapy Rehab Ord (12/10/20 16:24) Speech Therapy Rehab Orders (12/10/20 16:24) Cbc With Automated Diff (12/11/20 06:00) Comprehensive Metabolic Panel (12/11/20 06:00) Precautions (Aru) (12/10/20 16:24) Weekly Weight WEEK (12/10/20 16:24) Rehab-Intensity Of Therapy (12/10/20 16:24) Initiate Admission Nursing Pro .admission (12/10/20 16:24) Acetaminophen Tablet/Caplet (Tylenol T (12/10/20 16:30) Alprazolam Tablet (Xanax Tablet) (12/10/20 16:30) Calcium Carbonate Chew Tablet (Antacid C (12/10/20 16:30) Diphenhydramine Tablet (Benadryl Tablet) (12/10/20 16:30) Docusate Sodium Capsule (Colace Capsule) (12/10/20 21:00) Docusate Sodium Capsule (Colace Capsule) (12/10/20 16:30) Bisacodyl Suppository (Dulcolax Supposit (12/10/20 16:30) Lactulose Oral Solution (Enulose Oral So (12/10/20 16:30) Na Phos/Na Biphos Enema (Fleet Enema Manny (12/10/20 16:30) Guaifenesin/Codeine Syrup (Robitussin Ac (12/10/20 16:30) Loperamide Tablet (Imodium Tablet) (12/10/20 16:30) Melatonin Tablet (Melatonin Tablet) (12/10/20 16:30) Polyethylene Glycol Powder Pkt (Miralax (12/10/20 21:00) Ondansetron Oral Dissolve Tab (Zofran (12/10/20 16:30) Senna S Tablet (Senokot S Tablet) (12/10/20 21:00) Initiate Admission Nursing Pro .admission (12/10/20 16:24) Admission Arrival Bed Request (12/10/20 16:43) Code/Resuscitation (12/10/20 17:25) Incentive Spirometry (Nursing) Q2H (12/10/20 17:25) Acetaminophen Tablet/Caplet (Tylenol T (12/10/20 17:30) Aspirin Enteric Coated Tablet (Ecotrin T (12/11/20 09:00) Atorvastatin Tablet (Lipitor Tablet) (12/10/20 21:00) Citalopram Tablet (Celexa Tablet) (12/11/20 09:00) Calcium Carbonate Tablet (Calcarb 600 Ta (12/11/20 08:00) Cyanocobalamin Tablet (Vitamin B-12 Tabl (12/11/20 07:00) Docusate Sodium Capsule (Colace Capsule) (12/10/20 21:00) Enoxaparin Injection (Lovenox Injection) (12/11/20 11:00) Lorazepam Tablet (Ativan Tablet) (12/10/20 17:30) Melatonin Tablet (Melatonin Tablet) (12/10/20 21:00) Nicotine Patch (Nicoderm Patch) (12/11/20 09:00) Nystatin Oral Suspension (Mycostatin O (12/10/20 21:00) Ondansetron Oral Dissolve Tab (Zofran (12/10/20 17:30) Patch Removal (Patch Removal) (12/11/20 09:00) Sodium Chloride Flush (Catheter Flush Sy (12/10/20 17:30) Therapeutic Multivitamin Tab (Vitamins, (12/11/20 07:00) Zolpidem Tablet (Ambien Tablet) (12/10/20 17:30) Lisinopril Tablet (Zestril Tablet) (12/11/20 09:00) Polyethylene Glycol Powder Pkt (Miralax (12/10/20 21:00) Mat Initiate Protocol (12/10/20 17:25) Patch Removal (Patch Removal) (12/11/20 08:59) Consult Cardiology (12/11/20 05:36) Telemetry (12/11/20 12:51) Telemetry Nursing Assessment ( (12/11/20 12:51) Patient Visit (12/11/20 ) Speech Sound Lang Comp (12/11/20 ) Treat. Speech/Lang/Voice (12/11/20 ) Dysphagia Evaluation Std (12/11/20 ) Dysphagia Therapy (12/11/20 ) Patient Visit (12/11/20 ) Pt Eval Moderate Complexity (12/11/20 ) Functional Activities, Ea 15 (12/11/20 ) Functional Activities, Ea 15 (12/11/20 ) Gait Training, Ea 15 Min (12/11/20 ) Exercise Therap, Ea 15 Min (12/11/20 ) Albuterol/Ipra Inhalation Soln (Duoneb I (12/12/20 08:00) Svn Small Volume Nebulizer (12/12/20 06:10) Patient Visit (12/12/20 ) Dysphagia Therapy (12/12/20 ) Treat. Speech/Lang/Voice (12/12/20 ) Patient Visit (12/12/20 ) Exercise Therap, Ea 15 Min (12/12/20 ) Functional Activities, Ea 15 (12/12/20 ) Dys2 Mechanically Altered (12/12/20 Lunch) Patient Visit (12/12/20 ) Patient Visit (12/12/20 ) Functional Activities, Ea 15 (12/12/20 ) Rehab Nursing Orders: Ongoing Assess. of Cognitive Status, Ongoing Assess. of Function Status, Bladder Management, Bladder Scan, Bladder Training, Bowel Management, Bowel Training, Disease Management & Educaiton, DVT Prophylaxis, Fall Prevention, Fluid/Electrolyte/Nutrition Mgmt, Infection Prevention, Medication Management & Education, Management of Risks & Complications, Nutrition Management, Pain Management, Patient/Family Support, Safety Management Intensity of Therapy to be met Patient to be seen: Min.3h per day/5 of 7d PT IPOC Problem List: Activity Tolerance, Functional Strength, Safety, Balance, Gait, Transfer, Bed Mobility, ROM Treatment Plan: Continue Plan of Care Bed Mobility, Education, Functional Activity Helene, Functional Strength, Group Therapy, Gait, Safety, Therapeutic Exercise, Transfers Treatment Duration: Jan 01, 2021 Frequency: At least 5 of 7 days/Wk (IRF) Estimated Hrs Per Day: 1.5 hours per day OT IPOC Problems: Decreased Activ Tolerance, Decreased UE Strength, Impaired I ADL's, Impaired Self-Care Skills, Restricted Funct UE ROM OT Treatment, Training and Edu: Yes Plan of Care: ADL Retraining, Functional Mobility, Group Exercise/Act as Ind, UE Funct Exercise/Act Treatment Duration: Jan 08, 2021 Frequency: At least 5 of 7 days/Wk (IRF) Estimated Hrs Per Day: 1.[address] IPOC Speech Therapy Treatment Plan: Continue Plan of Care Treatment Duration: December 19, 2020 Frequency: 4 times per week (Patient will receive skilled ST 4-5x per week) Estimated Hrs Per Day: .5 hour per day Investigator [employer]/Case Mgmt Investigator [employer]/Case Managemen: Discharge Planning Dietitian/Telephone Order Supervisor Dietitian/Telephone Order Supervisor to monitor nutritional status and make changes and/or recommendations as needed and work with speech pathology on dietary upgrades as the occur. Physician IPOC Medical Issues being managed closely and that require the 24 hour availability of a physician: Recent catastrophic CVA with left sided flaccidity will require close monitoring of BP and other co-morbidities due to increase risk for decompensation Medical Issues: Bowel/Bladder Function, DVT Prophylaxis, Falls Precautions, Fluid/Electrolyte/Nutrition Balance, Infection Protection, Pain Management Brief Synthesis of Preadmission Screen, Post-Admission Evaluation, and Therapy Evaluations: PT OT ST will all focus on regaining function of left flaccid side and improve safe ambulation along with dysphagia management and speech Medical Prognosis: Fair Anticipated Length of Stay: 14 days MOHIT BOYKIN DO December 12, 2020 05:51
--- NOTE | 2020-12-12 05:51 | PM&R Progress Note ---
Subjective HPI/CC On Admission Date Seen by Provider: December 12, 2020 Time Seen by Provider: 12:00 Subjective/Events-last exam 12/12/20: Pt doing okay but a little bit tired Decreased stamina from the stroke No BM so laxatives will be given, this is the third day without a BM 12/11/20: Pt settling in well today Doing very well Taking pills okay Feeds herself Flaccidity on the left side noted Bowels moved two days ago Review of Systems General: Fatigue, Malaise Neurological: Weakness, Incoordination Objective Exam Vital Signs Vital Signs Date Time Temp Pulse Resp B/P (MAP) Pulse Ox O2 Delivery O2 Flow Rate FiO2 12/13/20 01:00 75 12/12/20 21:20 95 Room Air 12/12/20 20:00 37.3 16 126/60 (82) 12/12/20 06:07 21 Capillary Refill : General Appearance: No Apparent Distress, WD/WN, Chronically ill, Thin HEENT: PERRL/EOMI, Normal ENT Inspection, Pharynx Normal Neck: Full Range of Motion, Normal Inspection, Non Tender, Supple, Carotid Bruit Respiratory: Chest Non Tender, Lungs Clear, Normal Breath Sounds, No Accessory Muscle Use, No Respiratory Distress Cardiovascular: Regular Rate, Rhythm, No Edema, No Gallop, No JVD, No Murmur, Normal Peripheral Pulses Gastrointestinal: Normal Bowel Sounds, No Organomegaly, No Pulsatile Mass, Non Tender, Soft Back: Normal Inspection, No CVA Tenderness, No Vertebral Tenderness Extremity: Normal Capillary Refill, Normal Inspection, Normal Range of Motion, Non Tender, No Calf Tenderness, No Pedal Edema Neurologic/Psychiatric: Alert, Oriented x3, Abnormal Gait, Aphasia, Depressed Affect, Facial Droop, Motor Weakness (left sided flaccidity) Skin: Normal Color, Warm/Dry Lymphatic: No Adenopathy Results/Procedures Lab Patient resulted labs reviewed. [facility]IM Transfers Therapy Code Descriptions/Definitions Functional [place] Measure: 0=Not Assessed/NA 4=Minimal Assistance 1=Total Assistance 5=Supervision or Setup 2=Maximal Assistance 6=Modified [place] 3=Moderate Assistance 7=Complete IndependenceSCALE: Activities may be completed with or without assistive devices. 8-Rkgofafmyy-uharndn completes the activity by him/herself with no assistance from a helper. 5-Set-up or Clean-up Assistance-helper sets up or cleans up; patient completes activity. [place] assists only prior to or following the activity. 4-Supervision or Touching Assistance-helper provides verbal cues and/or touching/steadying and/or contact guard assistance as patient completes activity. Assistance may be provided throughout the activity or intermittently. 3-Partial/Moderate Assistance-helper does LESS THAN HALF the effort. [place] lifts, holds or supports trunk or limbs, but provides less than half the effort. 2-Substantial/Maximal Assistance-helper does MORE THAN HALF the effort. [place] lifts or holds trunk or limbs and provides more than half the effort. 2-Aucygagre-vbctou does ALL the effort. Patient does none of the effort to complete the activity. Or, the assistance of 2 or more helpers is required for the patient to complete the activity. If activity was not attempted, code reason: 7-Patient Refused. 9-Not Applicable-not attempted and the patient did not perform the activity before the current illness, exacerbation or injury. 10-Not Attempted due to Environmental Limitations-(lack of equipment, weather restraints, etc.). 88-Not Attempted due to Medical Conditions or Safety Concerns. Roll Left to Right (QC): 3 Sit to Lying (QC): 3 Sit to Stand (QC): 3 Chair/Ycz-hl-Lnnan Xfer(QC): 3 Car Transfer (QC): 3 Gait Training Does the Patient Walk?: Yes Walk 10 feet (QC): 88 Walk 50 ft with 2 Turns(QC): 88 Walk 150 ft (QC): 88 Walking 10ft/uneven surface-QC: 88 Gait Assistive Device: Parallel Bars Wheelchair Training Does the Pt Use a Wheelchair?: Yes Distance: 50' Wheel 50 ft with 2 turns (QC): 3 Wheel 150 ft (QC): 88 Type of Wheelchair: Manual Stair Training 1 Step (curb) (QC): 88 4 Steps (QC): 88 12 Steps (QC): 88 Balance Picking up an Object (QC): 88 ADL-Treatment Eating (QC): 4 Oral Hygiene (QC): 7 (Pt. declines oral care this a.m. as she has dentures. 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
[2020-12-12 06:07] VITALS: BP 107/53
[2020-12-12] MEDS: CYANOCOBALAMIN 1,000 MCG (VITAMIN B-12) TABLET PO SCH (06:16)
[2020-12-12] MEDS: MULTIVIT W/MINERALS TAB (THERAGRAN M) PO SCH (06:16)
[2020-12-12] MEDS: RT-ALBUTEROL/IPRATROPIUM 3 ML (DUONEB) VIAL INH SCH ×2 (07:54→21:20)
[2020-12-12 08:03] VITALS: BP 133/60
[2020-12-12] MEDS: NYSTATIN ORAL SUSP 5 ML UDC PO SCH ×4 (08:04→20:25)
[2020-12-12] MEDS: lisINopril 20 MG (PRINIVIL) TABLET PO SCH (08:04)
[2020-12-12] MEDS: CALCIUM CARBONATE 600 MG (CALCARB) TAB PO SCH (08:04)
[2020-12-12] MEDS: DOCUSATE SODIUM 100 MG (COLACE) CAP PO SCH ×2 (08:04→20:31)
[2020-12-12] MEDS: ASPIRIN E.C. 81 MG (ECOTRIN) TAB PO SCH (08:04)
[2020-12-12] MEDS: NICOTINE 14 MG (NICODERM) PATCH TD SCH (08:04)
[2020-12-12] MEDS: NICOTINE PATCH REMOVAL TP SCH (08:05)
--- NOTE | 2020-12-12 08:53 | Physical Therapy Daily Note ---
PT Daily Note-Current Subjective Patient in recliner pre tx, agrees to PT, has no complaints of pain. Appearance Patient in recliner post tx with nurse call, phone, tray, all needs met. Mental Status Patient Orientation: Person, Place, Situation Transfers SCALE: Activities may be completed with or without assistive devices. 0-Jnlvywxfzq-eeppltc completes the activity by him/herself with no assistance from a helper. 5-Set-up or Clean-up Assistance-helper sets up or cleans up; patient completes activity. [place] assists only prior to or following the activity. 4-Supervision or Touching Assistance-helper provides verbal cues and/or valentino christine/steadying and/or contact guard assistance as patient completes activity. Assistance may be provided throughout the activity or intermittently. 3-Partial/Moderate Assistance-helper does LESS THAN HALF the effort. [place] lifts, holds or supports trunk or limbs, but provides less than half the effort. 2-Substantial/Maximal Assistance-helper does MORE THAN HALF the effort. [place] lifts or holds trunk or limbs and provides more than half the effort. 7-Vzpjrakas-lyfwgy does ALL the effort. Patient does none of the effort to complete the activity. Or, the assistance of 2 or more helpers is required for the patient to complete the activity. If activity was not attempted, code reason: 7-Patient Refused. 9-Not Applicable-not attempted and the patient did not perform the activity before the current illness, exacerbation or injury. 10-Not Attempted due to Environmental Limitations-(lack of equipment, weather restraints, etc.). 88-Not Attempted due to Medical Conditions or Safety Concerns. Sit to Stand (QC): 3 Chair/Ekl-lo-Vppms Xfer(QC): 3 Gait Training Distance: 20'x3 Walk 10 feet (QC): 3 Gait Persons Needed: 1 Gait Assistive Device: Walker Alec WC follow, patient leans heavily to the left side, adducts left leg when stepping but doesn't scissor, uncoordinated steps with left side, mod assist to maintain balance and weight shift Wheelchair Training Does the Pt Use a Wheelchair?: Yes Type of Wheelchair: Manual 120', min assist, uses both legs and right arm Exercises NuStep Minutes: 15 NuStep Workload: 4 Treatments transfers, ambulation, WC mobility, functional strengthening Assessment Current Status: Fair Progress improving transfers but leans heavily to the left side during ambulation PT Short Term Goals Short Term Goals Time Frame: December 18, 2020 Roll Left & Right: 4 Sit to lyin Lying to sitting on side of be: 4 Sit to stand: 3 Chair/kha-en-floix transfer: 3 Walk 10 feet: 3 Walk 50 feet with two turns: 3 PT Battery Tester Field Goals Custodial Goals PT Battery Tester Field Goals Time Frame: Jan 01, 2021 Roll Left & Right (QC): 6 Sit to Lying (QC): 6 Lying-Sitting on Side/Bed(QC): 6 Sit to Stand (QC): 4 Chair/Crd-fr-Ifmgz Xfer(QC): 4 Toilet Transfer (QC): 4 Car Transfer (QC): 4 Does the Patient Walk: Yes Walk 10 feet (QC): 4 Walk 50ft with 2 Turns (QC): 4 Walk 150 ft (QC): 88 Walking 10ft on Uneven Surface: 3 1 Step (curb) (QC): 3 4 Steps (QC): 88 12 Steps (QC): 88 Picking up an Object (QC): 88 Wheel 50 feet with 2 turns (QC: 5 Wheel 150 feet: 5 PT Plan Problem List Problem List: Activity Tolerance, Functional Strength, Safety, Balance, Gait, Transfer, Bed Mobility, ROM Treatment/Plan Treatment Plan: Continue Plan of Care Treatment Plan: Bed Mobility, Education, Functional Activity Helene, Functional Strength, Group Therapy, Gait, Safety, Therapeutic Exercise, Transfers Treatment Duration: Jan 01, 2021 Frequency: At least 5 of 7 days/Wk (IRF) Estimated Hrs Per Day: 1.5 hours per day Patient and/or Family Agrees t: Yes Safety Risks/Education Patient Education: Gait Training, Transfer Techniques, Correct Positioning, Safety Issues Teaching Recipient: Patient Teaching Methods: Demonstration, Discussion Response to Teaching: Reinforcement Needed Time/GCodes Time In: 0800 Time Out: 0900 Total Billed Treatment Time: 60 Total Billed Treatment 1 visit EX 15' FA 45' BHARAT THOMAS PT December 12, 2020 08:53
[2020-12-12] MEDS: SENNA W/DOCUSATE (SENOKOT S) TABLET PO SCH ×2 (09:00→20:25)
--- NOTE | 2020-12-12 10:01 | Occupational Ther Daily Note ---
OT Current Status-Daily Note Subjective Pt alert, agrees to tx. Denies pain. States no desire to shower, no need to toilet. Agrees to ther ex in gym post oral/ hair care. Mental Status/Objective Patient Orientation: Person, Place, Situation ADL-Treatment Therapy Code Descriptions/Definitions Functional [place] Measure: 0=Not Assessed/NA 4=Minimal Assistance 1=Total Assistance 5=Supervision or Setup 2=Maximal Assistance 6=Modified [place] 3=Moderate Assistance 7=Complete IndependenceSCALE: Activities may be completed with or without assistive devices. 5-Lpzagzrdxj-wzfnjya completes the activity by him/herself with no assistance from a helper. 5-Set-up or Clean-up Assistance-helper sets up or cleans up; patient completes activity. [place] assists only prior to or following the activity. 4-Supervision or Touching Assistance-helper provides verbal cues and/or touching/steadying and/or contact guard assistance as patient completes activity. Assistance may be provided throughout the activity or intermittently. 3-Partial/Moderate Assistance-helper does LESS THAN HALF the effort. [place] lifts, holds or supports trunk or limbs, but provides less than half the effort. 2-Substantial/Maximal Assistance-helper does MORE THAN HALF the effort. [place] lifts or holds trunk or limbs and provides more than half the effort. 2-Zldnzjznx-ynzezk does ALL the effort. Patient does none of the effort to complete the activity. Or, the assistance of 2 or more helpers is required for the patient to complete the activity. If activity was not attempted, code reason: 7-Patient Refused. 9-Not Applicable-not attempted and the patient did not perform the activity before the current illness, exacerbation or injury. 10-Not Attempted due to Environmental Limitations-(lack of equipment, weather restraints, etc.). 88-Not Attempted due to Medical Conditions or Safety Concerns. Eating (QC): 5 (pt expresses IND with puree food.) Oral Hygiene (QC): 3 (min A stabilizing toothpaste. Requires cues for use of knees/ mouth for stabilization. Requires increased assist) Shower/Bathe Self (QC): 7 Upper Body Dressing (QC): 7 Lower Body Dressing (QC): 7 On/Off Footwear: 7 Toileting Hygiene (QC): 7 Toilet Transfer (QC): 7 Other Treatment Pt mod A transfer to R side from chair to w/c. Pt is pushed to sink, completes oral care as outlined, hair care with mod A for L side completion. Pt is pushed to gym, able to stabilize LEs in flexed position. Pt completes AROM from distal to proximal with fair shoulder elevation, poor shoulder protraction, fair- sh oulder flexion, fair bicep mobility, fair supination, poor pronation, fair wrist ext, poor wrist flex, poor finger isolation, fair grasp. Pt completes 10 reps of each of these movements. Pt at bar height table, completes AAROM shoulder flexion with use of R over L hand on frictionless table. Moves in shoulder flexion/ scaption/ cross body fashion 15x each. Pt educated on benefits. Pt able to complete with min cues for slow/ controlled movement. Pt uses bicep flexion/ bicep eccentric contraction to complete reaching movement with OT stabilizing/ mobilizing L shoulder during functional reach task. Completes 2 reps of 15 reaches. Returns to room, max A toward L side to chair, L UE positioned, all needs met, call light in reach, pt given pink therapy sponge for L hand sports centre manager strength/ visual compensation due to decreased sensation. 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 All needs met. Education OT Patient Education: Correct positioning, Exercise program, Home exercise program, Modified ADL techniques, Progress toward Goal/Update tx plan, Purpose of tx/functional activities, Transfer techniques Teaching Recipient: Patient Teaching Methods: Demonstration, Discussion Response to Teaching: Verbalize Understanding, Return Demonstration, Reinforcement Needed OT Short Term Goals Short Term Goals Time Frame: Dec 25, 2020 Eatin Oral hygiene: 3 Toileting hygiene: 3 Shower/bathe self: 3 Upper body dressin Lower body dressin Putting on/taking off footwear: 3 OT Sample Box Maker Goals [facility] Goals Time Frame: Jan 08, 2021 Eating (QC): 6 Oral Hygiene (QC): 5 Toileting Hygiene (QC): 4 Shower/Bathe Self (QC): 4 Upper Body Dressing (QC): 5 Lower Body Dressing (QC): 4 On/Off Footwear (QC): 4 Additional Goals: 1-Demonstrate ADL Tasks, 2-Verbalize Understanding, 3- ImproveStrength/Helene 1=Demonstrate adherence to instructed precautions during ADL tasks. 2=Patient will verbalize/demonstrate understanding of assistive d evices/modifications for ADL. 3=Patient will improve strength/tolerance for activity to enable patient to perform ADL's. OT Education/Plan Problem List/Assessment Assessment: Decreased Activ Tolerance, Decreased UE Strength, Dependent Transfers Discharge Recommendations Plan/Recommendations: Continue POC Therapy Discharge Recommendati: Assisted Living, Bath Aide, Home & Family, Post Acute OT Treatment Plan/Plan of Care Treatment,Training & Education: Yes Patient would benefit from OT for education, treatment and training to promote independence in ADL's, mobility, safety and/or upper extremity function for ADL's. Plan of Care: ADL Retraining, Functional Mobility, Group Exercise/Act as Ind, UE Funct Exercise/Act Treatment Duration: Jan 08, 2021 Frequency: At least 5 of 7 days/Wk (IRF) Estimated Hrs Per Day: 1.5 hours per day Agreement: Yes Rehab Potential: Good Time/GCodes Start Time: 09:00 Stop Time: 10:00 Total Time Billed (hr/min): 60 Billed Treatment Time 1, ADL, NM 3 (60) EMORY BURTON OTR December 12, 2020 10:01
[2020-12-12] MEDS: ENOXAPARIN 40 MG/0.4 ML (LOVENOX) SYR SC SCH (11:26)
--- NOTE | 2020-12-12 13:08 | Speech Therapy Daily Note ---
Speech Daily Progress Note Subjective Date Seen by Provider: December 12, 2020 Time Seen by Provider: 00:30 Patient was sitting up eating her lunch when I entered her room. She participated well with therapy. Objective Patient utilizes compensatory strategies as trained for safe oral intake at 80% with min to mod verbal cuing. No s/s of aspiration noted. Assessment Assessment Current Status: Good Progress Treatment Plan Continue Plan of Care Speech Short Term Goals Short Term Goals Short Term Goals 1) Patient will complete safety awareness tasks related to her daily needs at 80% or greater with minimal cues. 2) Patient will complete speech tasks at 80% or greater with minimal cues. 3) Patient will complete safe oral intake at 90% or greater with least restrictive diet. 4) Patient will utilize compensatory strategies for safe intake at 90% or greater. Speech [facility] Goals Health And Physical Education Teacher Goals Patient will improve cognitive-communication abilities in order to complete daily living tasks with minimal assist. Patient will maintain adequate nutrition/hydration via safe effective swallow function. Speech-Plan Patient/Family Goals Patient/Family Goals: Patient plans to return home upon discharge, however at this time she is unable to care for her daily needs without assistance. Treatment Plan Speech Therapy Treatment Plan: Continue Plan of Care Treatment Duration: December 19, 2020 Frequency: 4 times per week (Patient will receive skilled ST 4-5x per week) Estimated Hrs Per Day: .5 hour per day Rehab Potential: Good Barriers to Learning: Patient's recent CVA/debility, age Pt/Family Agrees to Plan: Yes Safety Risks/Education Teaching Recipient: Patient Teaching Methods: Demonstration, Discussion Response to Teaching: Verbalize Understanding, Return Demonstration Education Topics Provided: Safety of oral intake strategies, diet level, speech exercises Time Speech Therapy Time In: 12:30 Speech Therapy Time Out: 13:00 Total Billed Time: 30 Billed Treatment Time 1, SLAP, ARNULFO Borden December 12, 2020 13:08
--- NOTE | 2020-12-12 14:29 | Physical Therapy Daily Note ---
PT Daily Note-Current Subjective Patient in common area of rehab post group therapy. Patient agrees to PT, has no complaints of pain. Appearance Patient in bed post tx with nurse call, phone, tray, all needs met Mental Status Patient Orientation: Person, Place, Situation Transfers SCALE: Activities may be completed with or without assistive devices. 6-Jcybzpmygv-jlhkyrz completes the activity by him/herself with no assistance from a helper. 5-Set-up or Clean-up Assistance-helper sets up or cleans up; patient completes activity. [place] assists only prior to or following the activity. 4-Supervision or Touching Assistance-helper provides verbal cues and/or touching/steadying and/or contact guard assistance as patient completes activity. Assistance may be provided throughout the activity or intermittently. 3-Partial/Moderate Assistance-helper does LESS THAN HALF the effort. [place] lifts, holds or supports trunk or limbs, but provides less than half the effort. 2-Substantial/Maximal Assistance-helper does MORE THAN HALF the effort. [place] lifts or holds trunk or limbs and provides more than half the effort. 6-Bzadnknlk-lzcbtg does ALL the effort. Patient does none of the effort to complete the activity. Or, the assistance of 2 or more helpers is required for the patient to complete the activity. If activity was not attempted, code reason: 7-Patient Refused. 9-Not Applicable-not attempted and the patient did not perform the activity before the current illness, exacerbation or injury. 10-Not Attempted due to Environmental Limitations-(lack of equipment, weather restraints, etc.). 88-Not Attempted due to Medical Conditions or Safety Concerns. Roll Left & Right (QC): 3 Sit to Lying (QC): 3 Sit to Stand (QC): 3 Chair/Hst-nf-Vyhee Xfer(QC): 3 During tx patient states she needs to use the restroom, mod assist for toilet transfer and to maintain balance while patient gets her pants down, when done patient needs mod assist to stand and maintain balance while a nurse helps to pull her pants back up and then mod assist to get to WC and then mod assist for stand pivot to bed. Gait Training Distance: 20' Walk 10 feet (QC): 3 Gait Persons Needed: 1 Gait Assistive Device: Walker Alec WC follow, improved left foot clearance but very uncoordinated and adducts when stepping Wheelchair Training Does the Pt Use a Wheelchair?: Yes Wheel 50 ft with 2 turns (QC): 4 Type of Wheelchair: Manual 120'x2 Treatments WC mobility, ambulation, toileting, transfers and bed mobility Assessment Current Status: Fair Progress slightly improving general mobility PT Short Term Goals Short Term Goals Time Frame: December 18, 2020 Roll Left & Right: 4 Sit to lyin Lying to sitting on side of be: 4 Sit to stand: 3 Chair/hgb-yy-bugxi transfer: 3 Walk 10 feet: 3 Walk 50 feet with two turns: 3 PT Tobacco Flavorer Goals Tobacco Flavorer Goals PT Tobacco Flavorer Goals Time Frame: Jan 01, 2021 Roll Left & Right (QC): 6 Sit to Lying (QC): 6 Lying-Sitting on Side/Bed(QC): 6 Sit to Stand (QC): 4 Chair/Hrh-hm-Qitfq Xfer(QC): 4 Toilet Transfer (QC): 4 Car Transfer (QC): 4 Does the Patient Walk: Yes Walk 10 feet (QC): 4 Walk 50ft with 2 Turns (QC): 4 Walk 150 ft (QC): 88 Walking 10ft on Uneven Surface: 3 1 Step (curb) (QC): 3 4 Steps (QC): 88 12 Steps (QC): 88 Picking up an Object (QC): 88 Wheel 50 feet with 2 turns (QC: 5 Wheel 150 feet: 5 PT Plan Problem List Problem List: Activity Tolerance, Functional Strength, Safety, Balance, Gait, Transfer, Bed Mobility, ROM Treatment/Plan Treatment Plan: Continue Plan of Care Treatment Plan: Bed Mobility, Education, Functional Activity Helene, Functional Strength, Group Therapy, Gait, Safety, Therapeutic Exercise, Transfers Treatment Duration: Jan 01, 2021 Frequency: At least 5 of 7 days/Wk (IRF) Estimated Hrs Per Day: 1.5 hours per day Patient and/or Family Agrees t: Yes Safety Risks/Education Patient Education: Gait Training, Transfer Techniques, Correct Positioning, W/C Management, Safety Issues Teaching Recipient: Patient Teaching Methods: Demonstration, Discussion Response to Teaching: Reinforcement Needed Time/GCodes Time In: 1400 Time Out: 1430 Total Billed Treatment Time: 30 Total Billed Treatment 1 visit FA 30' BHARAT THOMAS PT December 12, 2020 14:29
--- NOTE | 2020-12-12 14:30 | Therapy Group Daily Note ---
Therapy Daily Group Note Patient Education Topic Home Safety, Exercises, Other List Below (ARU expectations and description) Session Ratio (pt:therapist): 4:1 Goal of Session: Education on ARU Expectations, Home Safety Strategies, UE/LE Strengthing Goal Met for this Session: Yes Pt Benefit of Group: Contributions to Others, F/U Use of Strategies @Home, Increased Functional Safety, Increased Functional Strength, Improved Cognition, Recognition of Peers, Socialization Other/Notes Using w/c pt was transported to OT/PT group. Group consisted of introductions (name,place living, earned first dollar?), socialization, seated B UE/LE exercises, educational topics of ARU description/expectations, benefits of exercise and home safety. Pt introduced self appropriately and actively listened to peers. Pt participated in group and gave own personal stories that corresponded with educational topics to acknowledge understanding. After group, pt left in care of PT. All needs met. Start Time: 13:00 Stop Time: 14:00 Total Billed Treatment Time: 60 Total Billed Treatment 1-ED SEPULVEDA December 12, 2020 14:30
[2020-12-12 20:00] VITALS: BP 126/60
[2020-12-12] MEDS: MELATONIN 3 MG TABLET PO SCH (20:25)
[2020-12-12] MEDS: polyethylene glycoL POWDER 17 GM (MIRALAX) PACK PO SCH (20:32)
--- NOTE | 2020-12-13 06:48 | PM&R Progress Note ---
Subjective HPI/CC On Admission Date Seen by Provider: December 13, 2020 Time Seen by Provider: 12:00 Subjective/Events-last exam 12/13/20: Patient doing well Having some abdominal cramps from laxatives No other issues reported Tearful at times Doing well with thin liquids 12/12/20: Pt doing okay but a little bit tired Decreased stamina from the stroke No BM so laxatives will be given, this is the third day without a BM 12/11/20: Pt settling in well today Doing very well Taking pills okay Feeds herself Flaccidity on the left side noted Bowels moved two days ago Review of Systems General: Fatigue, Malaise Pulmonary: Dyspnea Objective Exam Vital Signs Vital Signs Date Time Temp Pulse Resp B/P (MAP) Pulse Ox O2 Delivery O2 Flow Rate FiO2 12/14/20 01:00 80 12/13/20 20:23 Room Air 12/13/20 20:20 36.2 16 145/76 (99) 97 12/12/20 06:07 21 Capillary Refill : General Appearance: No Apparent Distress, WD/WN, Chronically ill, Thin HEENT: PERRL/EOMI, Normal ENT Inspection, Pharynx Normal Neck: Full Range of Motion, Normal Inspection, Non Tender, Supple, Carotid Bruit Respiratory: Chest Non Tender, Lungs Clear, Normal Breath Sounds, No Accessory Muscle Use, No Respiratory Distress Cardiovascular: Regular Rate, Rhythm, No Edema, No Gallop, No JVD, No Murmur, Normal Peripheral Pulses Gastrointestinal: Normal Bowel Sounds, No Organomegaly, No Pulsatile Mass, Non Tender, Soft Back: Normal Inspection, No CVA Tenderness, No Vertebral Tenderness Extremity: Normal Capillary Refill, Normal Inspection, Normal Range of Motion, Non Tender, No Calf Tenderness, No Pedal Edema Neurologic/Psychiatric: Alert, Oriented x3, Abnormal Gait, Aphasia, Depressed Affect, Facial Droop, Motor Weakness (left sided flaccidity) Skin: Normal Color, Warm/Dry Lymphatic: No Adenopathy Results/Procedures Lab Patient resulted labs reviewed. FIM Transfers Therapy Code Descriptions/Definitions Functional [place] Measure: 0=Not Assessed/NA 4=Minimal Assistance 1=Total Assistance 5=Supervision or Setup 2=Maximal Assistance 6=Modified [place] 3=Moderate Assistance 7=Complete IndependenceSCALE: Activities may be completed with or without assistive devices. 6-Dpzddzbukm-krjpvzh completes the activity by him/herself with no assistance from a helper. 5-Set-up or Clean-up Assistance-helper sets up or cleans up; patient completes activity. [place] assists only prior to or following the activity. 4-Supervision or Touching Assistance-helper provides verbal cues and/or touching/steadying and/or contact guard assistance as patient completes activity. Assistance may be provided throughout the activity or intermittently. 3-Partial/Moderate Assistance-helper does LESS THAN HALF the effort. [place] lifts, holds or supports trunk or limbs, but provides less than half the effort. 2-Substantial/Maximal Assistance-helper does MORE THAN HALF the effort. [place] lifts or holds trunk or limbs and provides more than half the effort. 2-Gzyeypfsb-lyrybe does ALL the effort. Patient does none of the effort to complete the activity. Or, the assistance of 2 or more helpers is required for the patient to complete the activity. If activity was not attempted, code reason: 7-Patient Refused. 9-Not Applicable-not attempted and the patient did not perform the activity before the current illness, exacerbation or injury. 10-Not Attempted due to Environmental Limitations-(lack of equipment, weather restraints, etc.). 88-Not Attempted due to Medical Conditions or Safety Concerns. Roll Left to Right (QC): 3 Sit to Lying (QC): 3 Sit to Stand (QC): 3 Chair/Zwv-sk-Drdsc Xfer(QC): 3 Car Transfer (QC): 3 Gait Training Does the Patient Walk?: Yes Distance: 20' Walk 10 feet (QC): 3 Walk 50 ft with 2 Turns(QC): 88 Walk 150 ft (QC): 88 Walking 10ft/uneven surface-QC: 88 Gait Persons Needed: 1 Gait Assistive Device: Walker Alec Wheelchair Training Does the Pt Use a Wheelchair?: Yes Distance: 50' Wheel 50 ft with 2 turns (QC): 4 Wheel 150 ft (QC): 88 Type of Wheelchair: Manual Stair Training 1 Step (curb) (QC): 88 4 Steps (QC): 88 12 Steps (QC): 88 Balance Picking up an Object (QC): 88 ADL-Treatment Eating (QC): 5 (pt expresses IND with puree food.) Oral Hygiene (QC): 3 (min A stabilizing toothpaste. Requires cues for use of knees/ mouth for stabilization. 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
[2020-12-13] MEDS: MULTIVIT W/MINERALS TAB (THERAGRAN M) PO SCH (06:50)
[2020-12-13] MEDS: CYANOCOBALAMIN 1,000 MCG (VITAMIN B-12) TABLET PO SCH (06:50)
[2020-12-13] MEDS: RT-ALBUTEROL/IPRATROPIUM 3 ML (DUONEB) VIAL INH SCH ×2 (07:17→19:57)
[2020-12-13 07:30] VITALS: BP 138/63
--- NOTE | 2020-12-13 08:57 | Occupational Ther Daily Note ---
OT Current Status-Daily Note Subjective Pt AxO, eating breakfast in recliner. Pt desires shower this am. Pt denies pain. Mental Status/Objective Patient Orientation: Person, Place, Situation ADL-Treatment Therapy Code Descriptions/Definitions Functional [place] Measure: 0=Not Assessed/NA 4=Minimal Assistance 1=Total Assistance 5=Supervision or Setup 2=Maximal Assistance 6=Modified [place] 3=Moderate Assistance 7=Complete IndependenceSCALE: Activities may be completed with or without assistive devices. 8-Knxvnbsuul-ncabiuj completes the activity by him/herself with no assistance from a helper. 5-Set-up or Clean-up Assistance-helper sets up or cleans up; patient completes activity. [place] assists only prior to or following the activity. 4-Supervision or Touching Assistance-helper provides verbal cues and/or touching/steadying and/or contact guard assistance as patient completes activity. Assistance may be provided throughout the activity or intermittently. 3-Partial/Moderate Assistance-helper does LESS THAN HALF the effort. [place] lifts, holds or supports trunk or limbs, but provides less than half the effort. 2-Substantial/Maximal Assistance-helper does MORE THAN HALF the effort. [place] l ifts or holds trunk or limbs and provides more than half the effort. 7-Ksewejqfr-xhvkvq does ALL the effort. Patient does none of the effort to complete the activity. Or, the assistance of 2 or more helpers is required for the patient to complete the activity. If activity was not attempted, code reason: 7-Patient Refused. 9-Not Applicable-not attempted and the patient did not perform the activity before the current illness, exacerbation or injury. 10-Not Attempted due to Environmental Limitations-(lack of equipment, weather restraints, etc.). 88-Not Attempted due to Medical Conditions or Safety Concerns. Eating (QC): 6 (with use of RUE and soft diet (no cutting)) Oral Hygiene (QC): 5 (s/u denture soaking.) Bathing Location: L Arm, R Arm, L Upper Leg, R Upper Leg, Chest, Abdomen, Buttocks, Perineal Area Shower/Bathe Self (QC): 3 (min A LE's and thoroughness bottom. Use of roll in sc) Upper Body Dressing (QC): 2 (min A doffing (overhead first)max A donning (increased dampness/ decreased ROM)) Lower Body Dressing (QC): 1 (Pt able to thread RLE after LLE completed for pt. Pt requires TD (Ax2) in stance to complete LB dressing.) On/Off Footwear: 1 (TD) Toileting Hygiene (QC): 3 (min A on sc for throughness. ) Toilet Transfer (QC): 1 (mod Ax2 (assist to pull pants as OT addresses transfer)) Other Treatment Pt transfers with Ax2 to sc. Roll into shower with max A. Pt completes showering/ dressing as outlined with cues for positioning. Pt educated on dressing LUE/ LLE first, though these are completed with max A for pt. Pt transfers from sc to chair with Ax2, positioned in chair for comfort with chair alarm on, all needs met, call light in reach. Education OT Patient Education: Correct positioning, Modified ADL techniques, Progress toward Goal/Update tx plan, Purpose of tx/functional activities, Safety issues, Transfer techniques Teaching Recipient: Patient Teaching Methods: Demonstration, Discussion Response to Teaching: Verbalize Understanding, Return Demonstration, Reinforcement Needed OT Short Term Goals Short Term Goals Time Frame: Dec 25, 2020 Eatin Oral hygiene: 3 Toileting hygiene: 3 Shower/bathe self: 3 Upper body dressin Lower body dressin Putting on/taking off footwear: 3 OT Installation And Service Technician Goals Long-Term Goals Time Frame: Jan 08, 2021 Eating (QC): 6 Oral Hygiene (QC): 5 Toileting Hygiene (QC): 4 Shower/Bathe Self (QC): 4 Upper Body Dressing (QC): 5 Lower Body Dressing (QC): 4 On/Off Footwear (QC): 4 Additional Goals: 1-Demonstrate ADL Tasks, 2-Verbalize Understanding, 3- ImproveStrength/Helene 1=Demonstrate adherence to instructed precautions during ADL tasks. 2=Patient will verbalize/demonstrate understanding of assistive devices/modifications for ADL. 3=Patient will improve strength/tolerance for activity to enable patient to perform ADL's. OT Education/Plan Problem List/Assessment Assessment: Decreased Activ Tolerance, Decreased UE Strength, Dependent Tr ansfers, Impaired Bed Mobility, Impaired Coordination, Impaired Funct Balance, Impaired I ADL's, Impaired Self-Care Skills, Restricted Funct UE ROM Discharge Recommendations Plan/Recommendations: Continue POC Therapy Discharge Recommendati: Intermittent Supervision, Assisted Living, Bath Aide, Post Acute OT Treatment Plan/Plan of Care Treatment,Training & Education: Yes Patient would benefit from OT for education, treatment and training to promote independence in ADL's, mobility, safety and/or upper extremity function for ADL's. Plan of Care: ADL Retraining, Functional Mobility, Group Exercise/Act as Ind, UE Funct Exercise/Act Treatment Duration: Jan 08, 2021 Frequency: At least 5 of 7 days/Wk (IRF) Estimated Hrs Per Day: 1.5 hours per day Agreement: Yes Rehab Potential: Good Time/GCodes Start Time: 07:30 Stop Time: 08:15 Total Time Billed (hr/min): 45 Billed Treatment Time 1, ADL 3 (45) EMORY BURTON OTR December 13, 2020 08:57
[2020-12-13] MEDS: lisINopril 20 MG (PRINIVIL) TABLET PO SCH (09:09)
[2020-12-13] MEDS: NYSTATIN ORAL SUSP 5 ML UDC PO SCH ×4 (09:09→20:13)
[2020-12-13] MEDS: DOCUSATE SODIUM 100 MG (COLACE) CAP PO SCH ×2 (09:09→20:13)
[2020-12-13] MEDS: SENNA W/DOCUSATE (SENOKOT S) TABLET PO SCH ×2 (09:09→20:13)
[2020-12-13] MEDS: CALCIUM CARBONATE 600 MG (CALCARB) TAB PO SCH (09:09)
[2020-12-13] MEDS: ASPIRIN E.C. 81 MG (ECOTRIN) TAB PO SCH (09:10)
[2020-12-13] MEDS: NICOTINE 14 MG (NICODERM) PATCH TD SCH (09:10)
[2020-12-13] MEDS: NICOTINE PATCH REMOVAL TP SCH (09:10)
--- NOTE | 2020-12-13 11:28 | Physical Therapy Daily Note ---
PT Daily Note-Current Subjective Pt agreeable and ready to participate in PT. Transfers SCALE: Activities may be completed with or without assistive devices. 5-Uuvxmgfjvi-sluqymz completes the activity by him/herself with no assistance from a helper. 5-Set-up or Clean-up Assistance-helper sets up or cleans up; patient completes activity. [place] assists only prior to or following the activity. 4-Supervision or Touching Assistance-helper provides verbal cues and/or touching/steadying and/or contact guard assistance as patient completes activity. Assistance may be provided throughout the activity or intermittently. 3-Partial/Moderate Assistance-helper does LESS THAN HALF the effort. [place] lifts, holds or supports trunk or limbs, but provides less than half the effort. 2-Substantial/Maximal Assistance-helper does MORE THAN HALF the effort. [place] lifts or holds trunk or limbs and provides more than half the effort. 3-Dyszjflza-kcbvne does ALL the effort. Patient does none of the effort to complete the activity. Or, the assistance of 2 or more helpers is required for the patient to complete the activity. If activity was not attempted, code reason: 7-Patient Refused. 9-Not Applicable-not attempted and the patient did not perform the activity before the current illness, exacerbation or injury. 10-Not Attempted due to Environmental Limitations-(lack of equipment, weather restraints, etc.). 88-Not Attempted due to Medical Conditions or Safety Concerns. Roll Left & Right (QC): 4 Sit to Lying (QC): 4 verbal cues for sit to stand including education to position feet properly. Gait Training Gait Assistive Device: Parallel Bars Gait 10 rounds in parallel bars with verbal and tactile cues for wt shift, limb advance and midline position. Min A for balance Neuromuscular standing at table and in parallel bars worked midline positioning and wt shifting onto the right LE. Standing balance and (L) LE coordination activities in standing and sitting. Assessment Pt showing progress in limb control. Gait improved with verbal cues and education. Continues to have adductor and pusher tone. PT Short Term Goals Short Term Goals Time Frame: December 18, 2020 Roll Left & Right: 4 Sit to lyin Lying to sitting on side of be: 4 Sit to stand: 3 Chair/jji-kh-mtnzg transfer: 3 Walk 10 feet: 3 Walk 50 feet with two turns: 3 PT Custodial Goals Custodial Goals PT Metal Base Blocker Goals Time Frame: Jan 01, 2021 Roll Left & Right (QC): 6 Sit to Lying (QC): 6 Lying-Sitting on Side/Bed(QC): 6 Sit to Stand (QC): 4 Chair/Oxj-xd-Teocz Xfer(QC): 4 Toilet Transfer (QC): 4 Car Transfer (QC): 4 Does the Patient Walk: Yes Walk 10 feet (QC): 4 Walk 50ft with 2 Turns (QC): 4 Walk 150 ft (QC): 88 Walking 10ft on Uneven Surface: 3 1 Step (curb) (QC): 3 4 Steps (QC): 88 12 Steps (QC): 88 Picking up an Object (QC): 88 Wheel 50 feet with 2 turns (QC: 5 Wheel 150 feet: 5 PT Plan Treatment/Plan Treatment Plan: Continue Plan of Care Treatment Plan: Bed Mobility, Education, Functional Activity Helene, Functional Strength, Group Therapy, Gait, Safety, Therapeutic Exercise, Transfers Treatment Duration: Jan 01, 2021 Frequency: At least 5 of 7 days/Wk (IRF) Estimated Hrs Per Day: 1.5 hours per day Patient and/or Family Agrees t: Yes Time/GCodes Time In: 820 Time Out: 900 Total Billed Treatment Time: 40 Total Billed Treatment visit, gait 15min, FA 10 min, NM 15 min NIKKI BRIGGS PT December 13, 2020 11:28
[2020-12-13] MEDS: ENOXAPARIN 40 MG/0.4 ML (LOVENOX) SYR SC SCH (12:37)
[2020-12-13] MEDS: MELATONIN 3 MG TABLET PO SCH (20:13)
[2020-12-13 20:20] VITALS: BP 145/76
[2020-12-13] MEDS: polyethylene glycoL POWDER 17 GM (MIRALAX) PACK PO SCH (20:20)
[2020-12-14] MEDS: MULTIVIT W/MINERALS TAB (THERAGRAN M) PO SCH (06:26)
[2020-12-14] MEDS: CYANOCOBALAMIN 1,000 MCG (VITAMIN B-12) TABLET PO SCH (06:26)
--- NOTE | 2020-12-14 06:40 | PM&R Progress Note ---
Subjective HPI/CC On Admission Date Seen by Provider: December 14, 2020 Time Seen by Provider: 12:00 Subjective/Events-last exam 12/14/20: Patient denies any issues No pain reported BM+ 12/13/20: Patient doing well Having some abdominal cramps from laxatives No other issues reported Tearful at times Doing well with thin liquids 12/12/20: Pt doing okay but a little bit tired Decreased stamina from the stroke No BM so laxatives will be given, this is the third day without a BM 12/11/20: Pt settling in well today Doing very well Taking pills okay Feeds herself Flaccidity on the left side noted Bowels moved two days ago Review of Systems General: Fatigue Neurological: Weakness, Incoordination Objective Exam Vital Signs Vital Signs Date Time Temp Pulse Resp B/P (MAP) Pulse Ox O2 Delivery O2 Flow Rate FiO2 12/14/20 19:51 36.4 81 16 114/61 (78) 98 Room Air 12/12/20 06:07 21 Capillary Refill : General Appearance: No Apparent Distress, WD/WN, Chronically ill, Thin HEENT: PERRL/EOMI, Normal ENT Inspection, Pharynx Normal Neck: Full Range of Motion, Normal Inspection, Non Tender, Supple, Carotid Bruit Respiratory: Chest Non Tender, Lungs Clear, Normal Breath Sounds, No Accessory Muscle Use, No Respiratory Distress Cardiovascular: Regular Rate, Rhythm, No Edema, No Gallop, No JVD, No Murmur, Normal Peripheral Pulses Gastrointestinal: Normal Bowel Sounds, No Organomegaly, No Pulsatile Mass, Non Tender, Soft Back: Normal Inspection, No CVA Tenderness, No Vertebral Tenderness Extremity: Normal Capillary Refill, Normal Inspection, Normal Range of Motion, Non Tender, No Calf Tenderness, No Pedal Edema Neurologic/Psychiatric: Alert, Oriented x3, Abnormal Gait, Aphasia, Depressed Affect, Facial Droop, Motor Weakness (left sided flaccidity) Skin: Normal Color, Warm/Dry Lymphatic: No Adenopathy Results/Procedures Lab Patient resulted labs reviewed. FIM Transfers Therapy Code Descriptions/Definitions Functional [place] Measure: 0=Not Assessed/NA 4=Minimal Assistance 1=Total Assistance 5=Supervision or Setup 2=Maximal Assistance 6=Modified [place] 3=Moderate Assistance 7=Complete IndependenceSCALE: Activities may be completed with or without assistive devices. 7-Mjkomrlqyo-utxqvrn completes the activity by him/herself with no assistance from a helper. 5-Set-up or Clean-up Assistance-helper sets up or cleans up; patient completes activity. [place] assists only prior to or following the activity. 4-Supervision or Touching Assistance-helper provides verbal cues and/or touching/steadying and/or contact guard assistance as patient completes acti vity. Assistance may be provided throughout the activity or intermittently. 3-Partial/Moderate Assistance-helper does LESS THAN HALF the effort. [place] lifts, holds or supports trunk or limbs, but provides less than half the effort. 2-Substantial/Maximal Assistance-helper does MORE THAN HALF the effort. [place] lifts or holds trunk or limbs and provides more than half the effort. 4-Wbmrmmhzs-kzsokg does ALL the effort. Patient does none of the effort to complete the activity. Or, the assistance of 2 or more helpers is required for the patient to complete the activity. If activity was not attempted, code reason: 7-Patient Refused. 9-Not Applicable-not attempted and the patient did not perform the activity before the current illness, exacerbation or injury. 10-Not Attempted due to Environmental Limitations-(lack of equipment, weather restraints, etc.). 88-Not Attempted due to Medical Conditions or Safety Concerns. Roll Left to Right (QC): 4 Sit to Lying (QC): 4 Sit to Stand (QC): 3 Chair/Vzp-bj-Dukxf Xfer(QC): 3 Car Transfer (QC): 3 Gait Training Does the Patient Walk?: Yes Distance: 20' Walk 10 feet (QC): 3 Walk 50 ft with 2 Turns(QC): 88 Walk 150 ft (QC): 88 Walking 10ft/uneven surface-QC: 88 Gait Persons Needed: 1 Gait Assistive Device: Parallel Bars Wheelchair Training Does the Pt Use a Wheelchair?: Yes Distance: 50' Wheel 50 ft with 2 turns (QC): 4 Wheel 150 ft (QC): 88 Type of Wheelchair: Manual Stair Training 1 Step (curb) (QC): 88 4 Steps (QC): 88 12 Steps (QC): 88 Balance Picking up an Object (QC): 88 ADL-Treatment Eating (QC): 6 (with use of RUE and soft diet (no cutting)) Oral Hygiene (QC): 5 (s/u denture soaking.) Bathing Location: L Arm, R Arm, L Upper Leg, R Upper Leg, Chest, Abdomen, Buttocks, Perineal Area Shower/Bathe Self (QC): 3 (min A LE's and thoroughness bottom. Use of roll in sc) Upper Body Dressing (QC): 2 (min A doffing (overhead first)max A donning (increased dampness/ decreased ROM)) Lower Body Dressing (QC): 1 (Pt able to thread RLE after LLE completed for pt. Pt requires TD (Ax2) in stance to complete LB dressing.) On/Off Footwear (QC): 1 (TD) Toileting Hygiene (QC): 3 (min A on sc for throughness. 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
[2020-12-14] MEDS: RT-ALBUTEROL/IPRATROPIUM 3 ML (DUONEB) VIAL INH SCH ×2 (06:49→20:53)
[2020-12-14 07:30] VITALS: BP 114/79
[2020-12-14] MEDS: SENNA W/DOCUSATE (SENOKOT S) TABLET PO SCH ×2 (07:50→21:54)
[2020-12-14] MEDS: NYSTATIN ORAL SUSP 5 ML UDC PO SCH ×4 (07:50→21:54)
[2020-12-14] MEDS: NICOTINE 14 MG (NICODERM) PATCH TD SCH (07:50)
[2020-12-14] MEDS: CALCIUM CARBONATE 600 MG (CALCARB) TAB PO SCH (07:50)
[2020-12-14] MEDS: DOCUSATE SODIUM 100 MG (COLACE) CAP PO SCH ×2 (07:50→21:54)
[2020-12-14] MEDS: lisINopril 20 MG (PRINIVIL) TABLET PO SCH (07:50)
[2020-12-14] MEDS: ASPIRIN E.C. 81 MG (ECOTRIN) TAB PO SCH (07:51)
[2020-12-14] MEDS: NICOTINE PATCH REMOVAL TP SCH (07:51)
[2020-12-14] MEDS: ENOXAPARIN 40 MG/0.4 ML (LOVENOX) SYR SC SCH (11:53)
[2020-12-14 19:51] VITALS: BP 114/61
[2020-12-14] MEDS: polyethylene glycoL POWDER 17 GM (MIRALAX) PACK PO SCH (21:50)
[2020-12-14] MEDS: MELATONIN 3 MG TABLET PO SCH (21:54)
[2020-12-15 05:46] LABS: BASOPHILS # (AUTO) 0.1 10^3/uL (0.0-0.1); BASOPHILS % (AUTO) 1 % (0-10); EOSINOPHILS # (AUTO) 0.1 10^3/uL (0.0-0.3); EOSINOPHILS % (AUTO) 2 % (0-10); HEMATOCRIT 37 % (35-52); HEMOGLOBIN 11.7 g/dL (11.5-16.0); LYMPHOCYTES # (AUTO) 1.5 10^3/uL (1.0-4.0); LYMPHOCYTES % (AUTO) 20 % (12-44); MEAN CORPUSCULAR HEMOGLOBIN 30 pg (25-34); MEAN CORPUSCULAR HGB CONC 32 g/dL (32-36); MEAN CORPUSCULAR VOLUME 93 fL (80-99); MONOCYTES # (AUTO) 0.5 10^3/uL (0.0-1.0); MONOCYTES % (AUTO) 7 % (0-12); NEUTROPHILS # (AUTO) 5.2 10^3/uL (1.8-7.8); NEUTROPHILS % (AUTO) 70 % (42-75); PLATELET COUNT 334 10^3/uL (130-400); WHITE BLOOD COUNT 7.4 10^3/uL (4.3-11.0)
[2020-12-15 06:14] LABS: ALANINE AMINOTRANSFERASE 23 U/L (0-55); ALBUMIN 3.7 GM/DL (3.2-4.5); ALKALINE PHOSPHATASE 72 U/L (40-136); BILIRUBIN,TOTAL 0.6 MG/DL (0.1-1.0); BUN/CREATININE RATIO 20; CALCIUM 9.1 MG/DL (8.5-10.1); CARBON DIOXIDE 29 MMOL/L (21-32); CHLORIDE 104 MMOL/L (98-107); CREATININE SERUM 0.81 MG/DL (0.60-1.30); GFR ESTIMATED > 60; GLUCOSE 101 MG/DL (70-105); POTASSIUM 4.3 MMOL/L (3.6-5.0); SODIUM 141 MMOL/L (135-145); TOTAL PROTEIN 6.7 GM/DL (6.4-8.2)
[2020-12-15] MEDS: CYANOCOBALAMIN 1,000 MCG (VITAMIN B-12) TABLET PO SCH (06:34)
[2020-12-15] MEDS: MULTIVIT W/MINERALS TAB (THERAGRAN M) PO SCH (06:34)
--- NOTE | 2020-12-15 07:45 | PM&R Progress Note ---
Subjective HPI/CC On Admission Date Seen by Provider: December 15, 2020 Time Seen by Provider: 09:00 Subjective/Events-last exam 12/15/20: Pt doing pretty well Had a BM yesterday but it was hard Had a bloody nose so I will start nasal spray Overall no major concerns 12/14/20: Patient denies any issues No pain reported BM+ 12/13/20: Patient doing well Having some abdominal cramps from laxatives No other issues reported Tearful at times Doing well with thin liquids 12/12/20: Pt doing okay but a little bit tired Decreased stamina from the stroke No BM so laxatives will be given, this is the third day without a BM 12/11/20: Pt settling in well today Doing very well Taking pills okay Feeds herself Flaccidity on the left side noted Bowels moved two days ago Review of Systems General: Fatigue, Malaise Neurological: Weakness Objective Exam Vital Signs Vital Signs Date Time Temp Pulse Resp B/P (MAP) Pulse Ox O2 Delivery O2 Flow Rate FiO2 12/16/20 00:55 91 12/15/20 20:20 Room Air 12/15/20 20:00 36.4 16 100/56 (71) 93 12/12/20 06:07 21 Capillary Refill : General Appearance: No Apparent Distress, WD/WN, Chronically ill, Thin HEENT: PERRL/EOMI, Normal ENT Inspection, Pharynx Normal Neck: Full Range of Motion, Normal Inspection, Non Tender, Supple, Carotid Bruit Respiratory: Chest Non Tender, Lungs Clear, Normal Breath Sounds, No Accessory Muscle Use, No Respiratory Distress Cardiovascular: Regular Rate, Rhythm, No Edema, No Gallop, No JVD, No Murmur, Normal Peripheral Pulses Gastrointestinal: Normal Bowel Sounds, No Organomegaly, No Pulsatile Mass, Non Tender, Soft Back: Normal Inspection, No CVA Tenderness, No Vertebral Tenderness Extremity: Normal Capillary Refill, Normal Inspection, Normal Range of Motion, Non Tender, No Calf Tenderness, No Pedal Edema Neurologic/Psychiatric: Alert, Oriented x3, Abnormal Gait, Aphasia, Depressed Affect, Facial Droop, Motor Weakness (left sided flaccidity) Skin: Normal Color, Warm/Dry Lymphatic: No Adenopathy Results/Procedures Lab Patient resulted labs reviewed. FIM Transfers Therapy Code Descriptions/Definitions Functional [place] Measure: 0=Not Assessed/NA 4=Minimal Assistance 1=Total Assistance 5=Supervision or Setup 2=Maximal Assistance 6=Modified [place] 3=Moderate Assistance 7=Complete IndependenceSCALE: Activities may be completed with or without assistive devices. 2-Gtsndmvjar-swvmwxa completes the activity by him/herself with no assistance from a helper. 5-Set-up or Clean-up Assistance-helper sets up or cleans up; patient completes activity. [place] assists only prior to or following the activity. 4-Supervision or Touching Assistance-helper provides verbal cues and/or touching/steadying and/or contact guard assistance as patient completes activity. Assistance may be provided throughout the activity or intermittently. 3-Partial/Moderate Assistance-helper does LESS THAN HALF the effort. [place] lifts, holds or supports trunk or limbs, but provides less than half the effort. 2-Substantial/Maximal Assistance-helper does MORE THAN HALF the effort. [place] lifts or holds trunk or limbs and provides more than half the effort. 3-Lzprmbonq-fhlgpn does ALL the effort. Patient does none of the effort to complete the activity. Or, the assistance of 2 or more helpers is required for the patient to complete the activity. If activity was not attempted, code reason: 7-Patient Refused. 9-Not Applicable-not attempted and the patient did not perform the activity before the current illness, exacerbation or injury. 10-Not Attempted due to Environmental Limitations-(lack of equipment, weather restraints, etc.). 88-Not Attempted due to Medical Conditions or Safety Concerns. Roll Left to Right (QC): 4 Sit to Lying (QC): 4 Sit to Stand (QC): 3 Chair/Adw-zn-Fnoir Xfer(QC): 3 Car Transfer (QC): 3 Gait Training Does the Patient Walk?: Yes Distance: 20' Walk 10 feet (QC): 3 Walk 50 ft with 2 Turns(QC): 88 Walk 150 ft (QC): 88 Walking 10ft/uneven surface-QC: 88 Gait Persons Needed: 1 Gait Assistive Device: Parallel Bars Wheelchair Training Does the Pt Use a Wheelchair?: Yes Distance: 50' Wheel 50 ft with 2 turns (QC): 4 Wheel 150 ft (QC): 88 Type of Wheelchair: Manual Stair Training 1 Step (curb) (QC): 88 4 Steps (QC): 88 12 Steps (QC): 88 Balance Picking up an Object (QC): 88 ADL-Treatment Eating (QC): 6 (with use of RUE and soft diet (no cutting)) Oral Hygiene (QC): 5 (s/u denture soaking.) Bathing Location: L Arm, R Arm, L Upper Leg, R Upper Leg, Chest, Abdomen, Buttocks, Perineal Area Shower/Bathe Self (QC): 3 (min A LE's and thoroughness bottom. Use of roll in sc) Upper Body Dressing (QC): 2 (min A doffing (overhead first)max A donning (increased dampness/ decreased ROM)) Lower Body Dressing (QC): 1 (Pt able to thread RLE after LLE completed for pt. Pt requires TD (Ax2) in stance to complete LB dressing.) On/Off Footwear (QC): 1 (TD) Toileting Hygiene (QC): 3 (min A on sc for throughness. 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
[2020-12-15 08:49] VITALS: BP 130/60
[2020-12-15] MEDS: NICOTINE 14 MG (NICODERM) PATCH TD SCH (08:51)
[2020-12-15] MEDS: DOCUSATE SODIUM 100 MG (COLACE) CAP PO SCH ×2 (08:51→20:54)
[2020-12-15] MEDS: RT-ALBUTEROL/IPRATROPIUM 3 ML (DUONEB) VIAL INH SCH ×2 (08:51→19:27)
[2020-12-15] MEDS: lisINopril 20 MG (PRINIVIL) TABLET PO SCH (08:51)
[2020-12-15] MEDS: ASPIRIN E.C. 81 MG (ECOTRIN) TAB PO SCH (08:51)
[2020-12-15] MEDS: NYSTATIN ORAL SUSP 5 ML UDC PO SCH ×4 (08:51→20:54)
[2020-12-15] MEDS: NICOTINE PATCH REMOVAL TP SCH (08:51)
[2020-12-15] MEDS: SENNA W/DOCUSATE (SENOKOT S) TABLET PO SCH ×2 (08:51→20:54)
[2020-12-15] MEDS: CALCIUM CARBONATE 600 MG (CALCARB) TAB PO SCH (08:51)
--- NOTE | 2020-12-15 08:55 | Physical Therapy Daily Note ---
PT Daily Note-Current Subjective Patient in recliner pre tx, agrees to PT, has no complaints of pain. Appearance Patient in recliner post tx with nurse call, phone, tray, chair alarm on. Mental Status Patient Orientation: Person, Place, Situation Transfers SCALE: Activities may be completed with or without assistive devices. 8-Cojtuyrfwl-apwhjab completes the activity by him/herself with no assistance from a helper. 5-Set-up or Clean-up Assistance-helper sets up or cleans up; patient completes activity. [place] assists only prior to or following the activity. 4-Supervision or Touching Assistance-helper provides verbal cues and/or to uching/steadying and/or contact guard assistance as patient completes activity. Assistance may be provided throughout the activity or intermittently. 3-Partial/Moderate Assistance-helper does LESS THAN HALF the effort. [place] lifts, holds or supports trunk or limbs, but provides less than half the effort. 2-Substantial/Maximal Assistance-helper does MORE THAN HALF the effort. [place] lifts or holds trunk or limbs and provides more than half the effort. 6-Fryxirfqm-dfelhr does ALL the effort. Patient does none of the effort to complete the activity. Or, the assistance of 2 or more helpers is required for the patient to complete the activity. If activity was not attempted, code reason: 7-Patient Refused. 9-Not Applicable-not attempted and the patient did not perform the activity before the current illness, exacerbation or injury. 10-Not Attempted due to Environmental Limitations-(lack of equipment, weather restraints, etc.). 88-Not Attempted due to Medical Conditions or Safety Concerns. Sit to Stand (QC): 3 Chair/Wpk-ky-Soaix Xfer(QC): 3 Patient has improved with transfers today and is min assist for stand pivot transfers Gait Training Distance: 20'x3 Walk 10 feet (QC): 3 Gait Persons Needed: 1 Gait Assistive Device: Walker Alec Still mod assist, leans heavily to the left side, adducts left leg but has shown improvement since tuesday Wheelchair Training Does the Pt Use a Wheelchair?: Yes Wheel 50 ft with 2 turns (QC): 4 Type of Wheelchair: Manual 120', 150' Exercises LAQ alternating for 5 min NuStep Minutes: 15 NuStep Workload: 4 Treatments transfers, ambulation, functional strengthening, WC mob Assessment Current Status: Fair Progress slightly improved progress shown with functional mobility PT Short Term Goals Short Term Goals Time Frame: December 18, 2020 Roll Left & Right: 4 Sit to lyin Lying to sitting on side of be: 4 Sit to stand: 3 Chair/iwh-hc-uqyju transfer: 3 Walk 10 feet: 3 Walk 50 feet with two turns: 3 PT Senior Buyer Goals Skilled Nursing Goals PT Skilled Nursing Goals Time Frame: Jan 01, 2021 Roll Left & Right (QC): 6 Sit to Lying (QC): 6 Lying-Sitting on Side/Bed(QC): 6 Sit to Stand (QC): 4 Chair/Aag-nk-Qjimc Xfer(QC): 4 Toilet Transfer (QC): 4 Car Transfer (QC): 4 Does the Patient Walk: Yes Walk 10 feet (QC): 4 Walk 50ft with 2 Turns (QC): 4 Walk 150 ft (QC): 88 Walking 10ft on Uneven Surface: 3 1 Step (curb) (QC): 3 4 Steps (QC): 88 12 Steps (QC): 88 Picking up an Object (QC): 88 Wheel 50 feet with 2 turns (QC: 5 Wheel 150 feet: 5 PT Plan Problem List Problem List: Activity Tolerance, Functional Strength, Safety, Balance, Gait, Transfer, Bed Mobility, ROM Treatment/Plan Treatment Plan: Continue Plan of Care Treatment Plan: Bed Mobility, Education, Functional Activity Helene, Functional Strength, Group Therapy, Gait, Safety, Therapeutic Exercise, Transfers Treatment Duration: Jan 01, 2021 Frequency: At least 5 of 7 days/Wk (IRF) Estimated Hrs Per Day: 1.5 hours per day Patient and/or Family Agrees t: Yes Safety Risks/Education Patient Education: Gait Training, Transfer Techniques, Correct Positioning, W/C Management, Safety Issues Teaching Recipient: Patient Teaching Methods: Demonstration, Discussion Response to Teaching: Reinforcement Needed Time/GCodes Time In: 0800 Time Out: 0900 Total Billed Treatment Time: 60 Total Billed Treatment 1 visit EX 20' FA 40' BHARAT THOMAS PT December 15, 2020 08:55
--- NOTE | 2020-12-15 09:31 | Cardiology Progress Note ---
Subjective Date Seen by Provider: December 15, 2020 Time Seen by Provider: 08:40 Subjective/Events-last exam Pt appears comfortable sitting up in chair doing her morning breathing treatment. Says she is feeling very well and getting better every day. Denies cp/palpitations/dizziness/sob/syncope. Review of Systems General: No Chills, No Night Sweats HEENT: No Head Aches, No Visual Changes Pulmonary: No Dyspnea, No Cough Cardiovascular: No: Chest Pain, Palpitations Gastrointestinal: No: Nausea, Vomiting Genitourinary: No Dysuria, No Frequency Musculoskeletal: No: neck pain, shoulder pain Neurological: Weakness (post CVA), Numbness (post CVA) Objective-Cardiology Exam Last Set of Vital Signs Vital Signs 12/12/20 12/15/20 12/15/20 12/15/20 06:07 08:49 08:52 08:57 Temp 36.6 Pulse 101 Resp 18 B/P (MAP) 130/60 (83) Pulse Ox 95 O2 Delivery Room Air FiO2 21 Capillary Refill : General: Alert, Oriented X3, Cooperative HEENT: Atraumatic, PERRLA Neck: Supple, No JVD Lungs: Clear to Auscultation, Normal Air Movement Heart: Regular Rate, Normal S1, Normal S2 Abdomen: Normal Bowel Sounds, Soft Extremities: No Clubbing, No Cyanosis Skin: No Rashes Neuro: Normal Gait, Normal Speech Results Lab Laboratory Tests 12/15/20 05:16 A/P-Cardiology Admission Diagnosis Cryptogenic stroke HTN HLD Assessment/Plan Cryptogenic stroke - MRI showed posterior R frontal lobe stroke possibly in splenium of corpus collosum; telemetry during her stay to monitor for possible Afib, continue current medications and monitor Hypertension, better controlled, continue to monitor blood pressure. Hyperlipidemia started on Lipitor. Monitor lipids General debility/weakness - PT/OT with IRF, lovenox for DVT prophylaxis History of breast cancer. In remission Tobaccoism, educated on smoking cessation Supervisory-Addendum Brief Verification & Attestation Participated in pt care: history, MDM, physical Personally performed: exam, history, MDM, supervision of care Care discussed with: Medical Student Procedures: n/a Results interpretation: Verified all documentation Verification and Attestation of Medical Student E/M Service A medical student performed and documented this service in my presence. I reviewed and verified all information documented by the medical student and made modifications to such information, when appropriate. I personally performed the physical exam and medical decision making. Dorothy Newby, December 15, 2020,11:12 МАРИЯ TREVINO MED STUDENT December 15, 2020 09:31 DOROTHY NEWBY MD December 15, 2020 11:14
--- NOTE | 2020-12-15 10:33 | Speech Therapy Daily Note ---
Speech Daily Progress Note Subjective Date Seen by Provider: December 15, 2020 Time Seen by Provider: 00:30 Patient was resting in her bed following her other therapies. She was relaxed and watching television. Objective Patient completed a series of "what's missing in this picture" cards with safety scenarios she may encounter within her environment after discharge at 85% with minimal cuing. Patient was upgraded to a Dysphagia II diet level with thin liquids on 12/12/2020. She is tolerating well without s/s of aspiration. Assessment Assessment Current Status: Good Progress Treatment Plan Continue Plan of Care Speech Short Term Goals Short Term Goals Short Term Goals 1) Patient will complete safety awareness tasks related to her daily needs at 80% or greater with minimal cues. 2) Patient will complete speech tasks at 80% or greater with minimal cues. 3) Patient will complete safe oral intake at 90% or greater with least restrictive diet. 4) Patient will utilize compensatory strategies for safe intake at 90% or greater. Speech Monitor Tech Goals Care Home Goals Patient will improve cognitive-communication abilities in order to complete daily living tasks with minimal assist. Patient will maintain adequate nutrition/hydration via safe effective swallow function. Speech-Plan Patient/Family Goals Patient/Family Goals: Patient plans on returning to her home upon discharge. Treatment Plan Speech Therapy Treatment Plan: Continue Plan of Care Treatment Duration: December 19, 2020 Frequency: 4 times per week (Patient will receive skilled ST 4-5x per week) Estimated Hrs Per Day: .5 hour per day Rehab Potential: Good Barriers to Learning: Patient's recent CVA with debility, age Pt/Family Agrees to Plan: Yes Safety Risks/Education Teaching Recipient: Patient Teaching Methods: Demonstration, Discussion Response to Teaching: Verbalize Understanding, Return Demonstration Education Topics Provided: Continued safety strategies with oral intake and within her room, communication of wants/needs Time Speech Therapy Time In: 10:30 Speech Therapy Time Out: 11:00 Total Billed Time: 30 Billed Treatment Time 1K[address]LIE [address] December 15, 2020 10:33
[2020-12-15] MEDS ORDERED: SALINE NASAL SPRAY (OCEAN) 45 ML BTL PRN (10:45)
[2020-12-15] MEDS ORDERED: BISACODYL 5 MG (DULCOLAX) TABLET PO PRN (11:15)
[2020-12-15] MEDS ORDERED: BISACODYL 5 MG (DULCOLAX) TABLET PO ONE (11:15)
--- NOTE | 2020-12-15 11:28 | Physical Therapy Daily Note ---
PT Daily Note-Current Subjective Patient in bed pre tx, agrees to PT but states she has had a suppository and doesn't want to get out of bed at this time. Agrees to exercises in bed. Appearance Patient in bed post tx with nurse call, phone, tray, all needs met. Mental Status Patient Orientation: Person, Place, Situation Transfers SCALE: Activities may be completed with or without assistive devices. 3-Cpombldozh-gpzghvj completes the activity by him/herself with no assistance from a helper. 5-Set-up or Clean-up Assistance-helper sets up or cleans up; patient completes activity. [place] assists only prior to or following the activity. 4-Supervision or Touching Assistance-helper provides verbal cues and/or touching/steadying and/or contact guard assistance as patient completes activity. Assistance may be provided throughout the activity or intermittently. 3-Partial/Moderate Assistance-helper does LESS THAN HALF the effort. [place] lifts, holds or supports trunk or limbs, but provides less than half the effort. 2-Substantial/Maximal Assistance-helper does MORE THAN HALF the effort. [place] lifts or holds trunk or limbs and provides more than half the effort. 1-Zghqmojwz-wbmrqq does ALL the effort. Patient does none of the effort to complete the activity. Or, the assistance of 2 or more helpers is required for the patient to complete the activity. If activity was not attempted, code reason: 7-Patient Refused. 9-Not Applicable-not attempted and the patient did not perform the activity before the current illness, exacerbation or injury. 10-Not Attempted due to Environmental Limitations-(lack of equipment, weather restraints, etc.). 88-Not Attempted due to Medical Conditions or Safety Concerns. Exercises Supine Ex: Ankle pumps, Quad Set, Glut sets, Heel Slides, Short Arc Quads, Straight leg raise, Hip abd/add Supine Reps: 20 occasional rest breaks Treatments LE exercise Assessment Current Status: Fair Progress improving strength in left leg but still uncoordinated movement PT Short Term Goals Short Term Goals Time Frame: December 18, 2020 Roll Left & Right: 4 Sit to lyin Lying to sitting on side of be: 4 Sit to stand: 3 Chair/uws-gs-rhxhh transfer: 3 Walk 10 feet: 3 Walk 50 feet with two turns: 3 PT Environmental Services Lead Goals Retirement Goals PT Environmental Services Lead Goals Time Frame: Jan 01, 2021 Roll Left & Right (QC): 6 Sit to Lying (QC): 6 Lying-Sitting on Side/Bed(QC): 6 Sit to Stand (QC): 4 Chair/Sbf-gx-Valgk Xfer(QC): 4 Toilet Transfer (QC): 4 Car Transfer (QC): 4 Does the Patient Walk: Yes Walk 10 feet (QC): 4 Walk 50ft with 2 Turns (QC): 4 Walk 150 ft (QC): 88 Walking 10ft on Uneven Surface: 3 1 Step (curb) (QC): 3 4 Steps (QC): 88 12 Steps (QC): 88 Picking up an Object (QC): 88 Wheel 50 feet with 2 turns (QC: 5 Wheel 150 feet: 5 PT Plan Problem List Problem List: Activity Tolerance, Functional Strength, Safety, Balance, Gait, Transfer, Bed Mobility, ROM Treatment/Plan Treatment Plan: Continue Plan of Care Treatment Plan: Bed Mobility, Education, Functional Activity Helene, Functional Strength, Group Therapy, Gait, Safety, Therapeutic Exercise, Transfers Treatment Duration: Jan 01, 2021 Frequency: At least 5 of 7 days/Wk (IRF) Estimated Hrs Per Day: 1.5 hours per day Patient and/or Family Agrees t: Yes Safety Risks/Education Patient Education: Correct Positioning, Safety Issues Teaching Recipient: Patient Teaching Methods: Demonstration, Discussion Response to Teaching: Reinforcement Needed Time/GCodes Time In: 1105 Time Out: 1120 Total Billed Treatment Time: 15 Total Billed Treatment 1 visit EX 15BHARAT MICHAEL PT December 15, 2020 11:27
[2020-12-15] MEDS: ENOXAPARIN 40 MG/0.4 ML (LOVENOX) SYR SC SCH (13:05)
--- NOTE | 2020-12-15 14:52 | Occupational Ther Daily Note ---
OT Current Status-Daily Note Subjective No pain reported. Appearance Pt. up in chair. Agrees to treatment. Mental Status/Objective Patient Orientation: Person, Place, Time, Situation ADL-Treatment Therapy Code Descriptions/Definitions Functional [place] Measure: 0=Not Assessed/NA 4=Minimal Assistance 1=Total Assistance 5=Supervision or Setup 2=Maximal Assistance 6=Modified [place] 3=Moderate Assistance 7=Complete IndependenceSCALE: Activities may be completed with or without assistive devices. 5-Hyiuqaalxv-vffpvrg completes the activity by him/herself with no assistance from a helper. 5-Set-up or Clean-up Assistance-helper sets up or cleans up; patient completes activity. [place] assists only prior to or following the activity. 4-Supervision or Touching Assistance-helper provides verbal cues and/or touching/steadying and/or contact guard assistance as patient completes activity. Assistance may be provided throughout the activity or intermittently. 3-Partial/Moderate Assistance-helper does LESS THAN HALF the effort. [place] lifts, holds or supports trunk or limbs, but provides less than half the effort. 2-Substantial/Maximal Assistance-helper does MORE THAN HALF the effort. [place] lifts or holds trunk or limbs and provides more than half the effort. 9-Zrcadgfmo-xtmxrl does ALL the effort. Patient does none of the effort to complete the activity. Or, the assistance of 2 or more helpers is required for the patient to complete the activity. If activity was not attempted, code reason: 7-Patient Refused. 9-Not Applicable-not attempted and the patient did not perform the activity before the current illness, exacerbation or injury. 10-Not Attempted due to Environmental Limitations-(lack of equipment, weather restraints, etc.). 88-Not Attempted due to Medical Conditions or Safety Concerns. Shower/Bathe Self (QC): 7 (Pt. declines showering stating that she showered this weekend. ) Upper Body Dressing (QC): 3 (Min assist to doff/don shirt.) Lower Body Dressing (QC): 2 (Pt. required max assist to don clean pants due to time constraints.) Toileting Hygiene (QC): 1 Toilet Transfer (QC): 2 Other Treatment Pt. declines bathing but agrees to dress. During dressing task, pt. requests to use BSC. OT assists pt. to BSC, and give pt. privacy. Pt. states that she is having difficulty having BM, and is constipated. Nursing assesses pt. after pt. has attempted for awhile. Nursing facilitates pt. to have BM. Pt. needs suppository. OT stands pt. with max assist while nursing cleanses rear [place] area. OT transfers pt. back to bed with max assist. Pt. is able to transfer sit-supine with mod assist, and roll self with min assist. Pt. is left with nursing and all needs are met. Education OT Patient Education: Correct positioning, Modified ADL techniques, Progress toward Goal/Update tx plan, Purpose of tx/functional activities, Reviewed precautions, Rehab process, Transfer techniques Teaching Recipient: Patient Teaching Methods: Demonstration, Discussion Response to Teaching: Verbalize Understanding, Return Demonstration OT Short Term Goals Short Term Goals Time Frame: Dec 25, 2020 Eatin Oral hygiene: 3 Toileting hygiene: 3 Shower/bathe self: 3 Upper body dressin Lower body dressin Putting on/taking off footwear: 3 OT [place] Goals Mcfp Goals Time Frame: Jan 08, 2021 Eating (QC): 6 Oral Hygiene (QC): 5 Toileting Hygiene (QC): 4 Shower/Bathe Self (QC): 4 Upper Body Dressing (QC): 5 Lower Body Dressing (QC): 4 On/Off Footwear (QC): 4 Additional Goals: 1-Demonstrate ADL Tasks, 2-Verbalize Understanding, 3- ImproveStrength/Helene 1=Demonstrate adherence to instructed precautions during ADL tasks. 2=Patient will verbalize/demonstrate understanding of assistive devic es/modifications for ADL. 3=Patient will improve strength/tolerance for activity to enable patient to perform ADL's. OT Education/Plan Problem List/Assessment Assessment: Decreased Activ Tolerance, Decreased UE Strength, Dependent Transfers, Impaired Bed Mobility, Impaired Coordination, Impaired Funct Balance, Impaired I ADL's, Impaired Self-Care Skills, Restricted Funct UE ROM Discharge Recommendations Plan/Recommendations: Continue POC Therapy Discharge Recommendati: Post Acute OT Treatment Plan/Plan of Care Treatment,Training & Education: Yes Patient would benefit from OT for education, treatment and training to promote i ndependence in ADL's, mobility, safety and/or upper extremity function for ADL's. Plan of Care: ADL Retraining, Functional Mobility, Group Exercise/Act as Ind, UE Funct Exercise/Act Treatment Duration: Jan 08, 2021 Frequency: At least 5 of 7 days/Wk (IRF) Estimated Hrs Per Day: 1.5 hours per day Agreement: Yes Rehab Potential: Good Time/GCodes Start Time: 09:00 Stop Time: 10:15 Total Time Billed (hr/min): 75 Billed Treatment Time 1, ADL x 5 MIGUEL CARRIZALES OT December 15, 2020 14:52
[2020-12-15 20:00] VITALS: BP 100/56
[2020-12-15] MEDS: MELATONIN 3 MG TABLET PO SCH (20:54)
[2020-12-15] MEDS: polyethylene glycoL POWDER 17 GM (MIRALAX) PACK PO SCH (21:04)
[2020-12-16] MEDS: MULTIVIT W/MINERALS TAB (THERAGRAN M) PO SCH (06:24)
[2020-12-16] MEDS: CYANOCOBALAMIN 1,000 MCG (VITAMIN B-12) TABLET PO SCH (06:24)
[2020-12-16 08:00] VITALS: BP 122/58
[2020-12-16] MEDS: RT-ALBUTEROL/IPRATROPIUM 3 ML (DUONEB) VIAL INH SCH ×2 (08:48→18:46)
--- NOTE | 2020-12-16 08:55 | Physical Therapy Daily Note ---
PT Daily Note-Current Subjective Patient in recliner pre tx, agrees to PT, has no complaints of pain. Appearance Patient in recliner post tx with nurse call, phone, tray, all needs met, chair alarm on. Mental Status Patient Orientation: Person, Place, Situation Transfers SCALE: Activities may be completed with or without assistive devices. 2-Bryfaezoax-ajitgbt completes the activity by him/herself with no assistance from a helper. 5-Set-up or Clean-up Assistance-helper sets up or cleans up; patient completes activity. [place] assists only prior to or following the activity. 4-Supervision or Touching Assistance-helper provides verbal cues and/or touching/steadying and/or contact guard assistance as patient completes activity. Assistance may be provided throughout the activity or intermittently. 3-Partial/Moderate Assistance-helper does LESS THAN HALF the effort. [place] lifts, holds or supports trunk or limbs, but provides less than half the effort. 2-Substantial/Maximal Assistance-helper does MORE THAN HALF the effort. [place] lifts or holds trunk or limbs and provides more than half the effort. 4-Atbnhnurv-oyrwgm does ALL the effort. Patient does none of the effort to complete the activity. Or, the assistance of 2 or more helpers is required for the patient to complete the activity. If activity was not attempted, code reason: 7-Patient Refused. 9-Not Applicable-not attempted and the patient did not perform the activity before the current illness, exacerbation or injury. 10-Not Attempted due to Environmental Limitations-(lack of equipment, weather restraints, etc.). 88-Not Attempted due to Medical Conditions or Safety Concerns. Sit to Stand (QC): 3 Chair/Yly-sm-Qencs Xfer(QC): 3 Gait Training Distance: 20'x4 Walk 10 feet (QC): 3 Gait Persons Needed: 1 Gait Assistive Device: Walker Alec slow, leans to left side, needs cues to bear all weight on right leg in order to move left Wheelchair Training Does the Pt Use a Wheelchair?: Yes Wheel 50 ft with 2 turns (QC): 4 Type of Wheelchair: Manual 120'x2 Exercises Standing: Heel/toe raises, Mini squats, Step-ups (x10 with just left side) Standing Reps: 15 LAQ alternating for 5 min, side stepping in the parallel bars down and back 6' each way x3 Treatments transfers, ambulation, functional strengthening, WC mobility Assessment Current Status: Poor Progress patient seemed to need more cues today for safety and hand placement and with balance during ambulation PT Short Term Goals Short Term Goals Time Frame: December 18, 2020 Roll Left & Right: 4 Sit to lyin Lying to sitting on side of be: 4 Sit to stand: 3 Chair/vps-ra-ykryj transfer: 3 Walk 10 feet: 3 Walk 50 feet with two turns: 3 PT Switch Tender Goals Switch Tender Goals PT Switch Tender Goals Time Frame: Jan 01, 2021 Roll Left & Right (QC): 6 Sit to Lying (QC): 6 Lying-Sitting on Side/Bed(QC): 6 Sit to Stand (QC): 4 Chair/Nqa-nr-Gsmmv Xfer(QC): 4 Toilet Transfer (QC): 4 Car Transfer (QC): 4 Does the Patient Walk: Yes Walk 10 feet (QC): 4 Walk 50ft with 2 Turns (QC): 4 Walk 150 ft (QC): 88 Walking 10ft on Uneven Surface: 3 1 Step (curb) (QC): 3 4 Steps (QC): 88 12 Steps (QC): 88 Picking up an Object (QC): 88 Wheel 50 feet with 2 turns (QC: 5 Wheel 150 feet: 5 PT Plan Problem List Problem List: Activity Tolerance, Functional Strength, Safety, Balance, Gait, Transfer, Bed Mobility, ROM Treatment/Plan Treatment Plan: Continue Plan of Care Treatment Plan: Bed Mobility, Education, Functional Activity Helene, Functional Strength, Group Therapy, Gait, Safety, Therapeutic Exercise, Transfers Treatment Duration: Jan 01, 2021 Frequency: At least 5 of 7 days/Wk (IRF) Estimated Hrs Per Day: 1.5 hours per day Patient and/or Family Agrees t: Yes Safety Risks/Education Patient Education: Gait Training, Transfer Techniques, Correct Positioning, W/C Management, Safety Issues Teaching Recipient: Patient Teaching Methods: Demonstration, Discussion Response to Teaching: Reinforcement Needed Time/GCodes Time In: 0800 Time Out: 0900 Total Billed Treatment Time: 60 Total Billed Treatment 1 visit FA 30' EX 30' BHARAT THOMAS PT December 16, 2020 08:55
[2020-12-16] MEDS: CALCIUM CARBONATE 600 MG (CALCARB) TAB PO SCH (09:05)
[2020-12-16] MEDS: NYSTATIN ORAL SUSP 5 ML UDC PO SCH ×4 (09:06→20:23)
[2020-12-16] MEDS: SENNA W/DOCUSATE (SENOKOT S) TABLET PO SCH ×2 (09:06→20:22)
[2020-12-16] MEDS: lisINopril 10 MG (PRINIVIL) TABLET PO SCH (09:06)
[2020-12-16] MEDS: NICOTINE 14 MG (NICODERM) PATCH TD SCH (09:06)
[2020-12-16] MEDS: ASPIRIN E.C. 81 MG (ECOTRIN) TAB PO SCH (09:06)
[2020-12-16] MEDS: NICOTINE PATCH REMOVAL TP SCH (09:06)
--- NOTE | 2020-12-16 09:06 | PM&R Progress Note ---
Subjective HPI/CC On Admission Date Seen by Provider: December 16, 2020 Time Seen by Provider: 09:10 Subjective/Events-last exam 12/16/20: Pt doing really well Telemetry noted, HR of 30s but on assessment it was 78 Decreasing BP medications Bowels moved yesterday 12/15/20: Pt doing pretty well Had a BM yesterday but it was hard Had a bloody nose so I will start nasal spray Overall no major concerns 12/14/20: Patient denies any issues No pain reported BM+ 12/13/20: Patient doing well Having some abdominal cramps from laxatives No other issues reported Tearful at times Doing well with thin liquids 12/12/20: Pt doing okay but a little bit tired Decreased stamina from the stroke No BM so laxatives will be given, this is the third day without a BM 12/11/20: Pt settling in well today Doing very well Taking pills okay Feeds herself Flaccidity on the left side noted Bowels moved two days ago Review of Systems General: Fatigue Neurological: Weakness, Incoordination Objective Exam Vital Signs Vital Signs Date Time Temp Pulse Resp B/P (MAP) Pulse Ox O2 Delivery O2 Flow Rate FiO2 12/17/20 01:00 97 12/16/20 20:30 Room Air 12/16/20 20:00 36.7 16 123/60 (81) 93 12/12/20 06:07 21 Capillary Refill : General Appearance: No Apparent Distress, WD/WN, Chronically ill, Thin HEENT: PERRL/EOMI, Normal ENT Inspection, Pharynx Normal Neck: Full Range of Motion, Normal Inspection, Non Tender, Supple, Carotid Bruit Respiratory: Chest Non Tender, Lungs Clear, Normal Breath Sounds, No Accessory Muscle Use, No Respiratory Distress Cardiovascular: Regular Rate, Rhythm, No Edema, No Gallop, No JVD, No Murmur, Normal Peripheral Pulses Gastrointestinal: Normal Bowel Sounds, No Organomegaly, No Pulsatile Mass, Non Tender, Soft Back: Normal Inspection, No CVA Tenderness, No Vertebral Tenderness Extremity: Normal Capillary Refill, Normal Inspection, Normal Range of Motion, Non Tender, No Calf Tenderness, No Pedal Edema Neurologic/Psychiatric: Alert, Oriented x3, Abnormal Gait, Aphasia, Depressed Affect, Facial Droop, Motor Weakness (left sided flaccidity) Skin: Normal Color, Warm/Dry Lymphatic: No Adenopathy Results/Procedures Lab Patient resulted labs reviewed. FIM Transfers Therapy Code Descriptions/Definitions Functional [place] Measure: 0=Not Assessed/NA 4=Minimal Assistance 1=Total Assistance 5=Supervision or Setup 2=Maximal Assistance 6=Modified [place] 3=Moderate Assistance 7=Complete IndependenceSCALE: Activities may be completed with or without assistive devices. 7-Prgipibwqi-esspxsw completes the activity by him/herself with no assistance from a helper. 5-Set-up or Clean-up Assistance-helper sets up or cleans up; patient completes activity. [place] assists only prior to or following the activity. 4-Supervision or Touching Assistance-helper provides verbal cues and/or touchin g/steadying and/or contact guard assistance as patient completes activity. Assistance may be provided throughout the activity or intermittently. 3-Partial/Moderate Assistance-helper does LESS THAN HALF the effort. [place] lifts, holds or supports trunk or limbs, but provides less than half the effort. 2-Substantial/Maximal Assistance-helper does MORE THAN HALF the effort. [place] lifts or holds trunk or limbs and provides more than half the effort. 5-Jzjkvtlia-gtoelu does ALL the effort. Patient does none of the effort to complete the activity. Or, the assistance of 2 or more helpers is required for the patient to complete the activity. If activity was not attempted, code reason: 7-Patient Refused. 9-Not Applicable-not attempted and the patient did not perform the activity before the current illness, exacerbation or injury. 10-Not Attempted due to Environmental Limitations-(lack of equipment, weather restraints, etc.). 88-Not Attempted due to Medical Conditions or Safety Concerns. Roll Left to Right (QC): 4 Sit to Lying (QC): 4 Sit to Stand (QC): 3 Chair/Kcj-iu-Uhfca Xfer(QC): 3 Car Transfer (QC): 3 Gait Training Does the Patient Walk?: Yes Distance: 20'x4 Walk 10 feet (QC): 3 Walk 50 ft with 2 Turns(QC): 88 Walk 150 ft (QC): 88 Walking 10ft/uneven surface-QC: 88 Gait Persons Needed: 1 Gait Assistive Device: Walker Alec Wheelchair Training Does the Pt Use a Wheelchair?: Yes Distance: 50' Wheel 50 ft with 2 turns (QC): 4 Wheel 150 ft (QC): 88 Type of Wheelchair: Manual Stair Training 1 Step (curb) (QC): 88 4 Steps (QC): 88 12 Steps (QC): 88 Balance Picking up an Object (QC): 88 ADL-Treatment Eating (QC): 6 (with use of RUE and soft diet (no cutting)) Oral Hygiene (QC): 5 (s/u denture soaking.) Bathing Location: L Arm, R Arm, L Upper Leg, R Upper Leg, Chest, Abdomen, Buttocks, Perineal Area Shower/Bathe Self (QC): 7 (Pt. declines showering stating that she showered this weekend. ) Upper Body Dressing (QC): 3 (Min assist to doff/don shirt.) Lower Body Dressing (QC): 2 (Pt. 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
[2020-12-16] MEDS: DOCUSATE SODIUM 100 MG (COLACE) CAP PO SCH ×2 (09:07→20:23)
--- NOTE | 2020-12-16 09:15 | Speech Therapy Daily Note ---
Speech Daily Progress Note Subjective Date Seen by Provider: December 16, 2020 Time Seen by Provider: 00:30 Patient was sitting up and eating breakfast when I entered her room. Nursing was present, giving her her morning meds. Objective Patient completed a series of verbally presented safety scenarios she may encounter within her environment after discharge at 85% with min cuing. Patient demo safety strategies for oral intake at 90% with minimal cues. Assessment Assessment Current Status: Good Progress Treatment Plan Continue Plan of Care Speech Short Term Goals Short Term Goals Short Term Goals 1) Patient will complete safety awareness tasks related to her daily needs at 80% or greater with minimal cues. 2) Patient will complete speech tasks at 80% or greater with minimal cues. 3) Patient will complete safe oral intake at 90% or greater with least restrictive diet. 4) Patient will utilize compensatory strategies for safe intake at 90% or greater. Speech Fdc Goals Fdc Goals Patient will improve cognitive-communication abilities in order to complete daily living tasks with minimal assist. Patient will maintain adequate nutrition/hydration via safe effective swallow function. Speech-Plan Patient/Family Goals Patient/Family Goals: Patient plans to return home where she lives alone. Her discharge location will be determined by her needs at the time of discharge. Treatment Plan Speech Therapy Treatment Plan: Continue Plan of Care Treatment Duration: December 19, 2020 Frequency: 4 times per week (Patient will receive skilled ST 4-5x per week) Estimated Hrs Per Day: .5 hour per day Rehab Potential: Good Barriers to Learning: Patient's recent CVA, speech deficits are resolving Pt/Family Agrees to Plan: Yes Safety Risks/Education Teaching Recipient: Patient Teaching Methods: Demonstration, Discussion Response to Teaching: Verbalize Understanding, Return Demonstration Education Topics Provided: Continued safety within her room and with oral intake Time Speech Therapy Time In: 09:00 Speech Therapy Time Out: 09:30 Total Billed Time: 30 Billed Treatment Time 1, BENNY, ARNULFO Mohamud December 16, 2020 09:15
--- NOTE | 2020-12-16 12:11 | Cardiology Progress Note ---
Subjective Date Seen by Provider: December 16, 2020 Time Seen by Provider: 08:00 Subjective/Events-last exam Patient was seen and evaluated, in a wheelchair, heading for physical therapy Review of Systems General: No Chills, No Night Sweats; Fatigue; No Malaise, No Appetite, No Other HEENT: No Head Aches, No Visual Changes, No Eye Pain, No Ear Pain, No Dysphasia, No Sinus Congestion, No Post Nasal Drip, No Sore Throat, No Other Pulmonary: No Dyspnea, No Cough, No Pleuritic Chest Pain, No Other Cardiovascular: No: Chest Pain, Palpitations, Orthopnea, Paroxysmal Noc. Dyspnea, Edema, Lt Headedness, Other Objective-Cardiology Exam Last Set of Vital Signs Vital Signs 12/12/20 12/16/20 12/16/20 06:07 08:00 08:49 Temp 36.8 Pulse 82 Resp 16 B/P (MAP) 122/58 (79) Pulse Ox 92 O2 Delivery Room Air FiO2 21 Capillary Refill : General: Alert, Oriented X3, Cooperative HEENT: Atraumatic, PERRLA Neck: Supple, No JVD Lungs: Clear to Auscultation, Normal Air Movement Heart: Regular Rate, Normal S1, Normal S2 Abdomen: Normal Bowel Sounds, Soft Extremities: No Clubbing, No Cyanosis Skin: No Rashes Neuro: Normal Gait, Normal Speech A/P-Cardiology Admission Diagnosis Cryptogenic stroke HTN HLD Assessment/Plan Cryptogenic stroke - MRI showed posterior R frontal lobe stroke possibly in splenium of corpus collosum; telemetry during her stay to monitor for possible Afib, continue current medications and monitor Hypertension, better controlled, continue to monitor blood pressure. Hyperlipidemia started on Lipitor. Monitor lipids General debility/weakness - PT/OT with IRF, lovenox for DVT prophylaxis History of breast cancer. In remission Tobaccoism, educated on smoking cessation DOROTHY RIVERA MD December 16, 2020 12:11
[2020-12-16] MEDS: ENOXAPARIN 40 MG/0.4 ML (LOVENOX) SYR SC SCH (12:37)
--- NOTE | 2020-12-16 13:31 | Occupational Ther Daily Note ---
OT Current Status-Daily Note Subjective No pain reported. Appearance Pt. up in chair. Agrees to work with OT. Mental Status/Objective Patient Orientation: Person, Place, Time, Situation ADL-Treatment Therapy Code Descriptions/Definitions Functional [place] Measure: 0=Not Assessed/NA 4=Minimal Assistance 1=Total Assistance 5=Supervision or Setup 2=Maximal Assistance 6=Modified [place] 3=Moderate Assistance 7=Complete IndependenceSCALE: Activities may be completed with or without assistive devices. 1-Auhnqiimfs-wrlajrd completes the activity by him/herself with no assistance from a helper. 5-Set-up or Clean-up Assistance-helper sets up or cleans up; patient completes activity. [place] assists only prior to or following the activity. 4-Supervision or Touching Assistance-helper provides verbal cues and/or touching/steadying and/or contact guard assistance as patient completes activity. Assistance may be provided throughout the activity or intermittently. 3-Partial/Moderate Assistance-helper does LESS THAN HALF the effort. [place] lifts, holds or supports trunk or limbs, but provides less than half the effort. 2-Substantial/Maximal Assistance-helper does MORE THAN HALF the effort. [place] lifts or holds trunk or limbs and provides more than half the effort. 7-[place]-dmzaqs does ALL the effort. Patient does none of the effort to complete the activity. Or, the assistance of 2 or more helpers is required for the patient to complete the activity. If activity was not attempted, code reason: 7-Patient Refused. 9-Not Applicable-not attempted and the patient did not perform the activity before the current illness, exacerbation or injury. 10-Not Attempted due to Environmental Limitations-(lack of equipment, weather restraints, etc.). 88-Not Attempted due to Medical Conditions or Safety Concerns. Eating (QC): 5 Oral Hygiene (QC): 3 (Min assist to brush dentures at sink.) Shower/Bathe Self (QC): 3 (Min assist in shower to wash all parts.) Upper Body Dressing (QC): 3 (Mod assist overall for shirt.) Lower Body Dressing (QC): 1 (Assist to don brief and pants over feet, and assist to don over hips while another person assists with stance.) On/Off Footwear: 2 Toileting Hygiene (QC): 4 (SBA to cleanse self after urination.) Other Treatment Pt. agrees to shower. Transferred to shower chair with max assist. After ADLS, pt. transferred to wheelchair with max assist. Completed oral care, hair brushing, and face care at sink. OT brushed hair more thoroughly and placed in ponytail. Pt. self propelled to therapy gym. Pt. tolerated e-stim to left UE in wrist extension, x 5 minutes x 6 mirian-amps for increased overall strength and muscle control. Demonstrates some active wrist extension, finger flexion, elbow flexion. Does not demonstrate active finger extension, wrist flexion. Pt. taken back to room via wheelchair and transferred to reclining chair with max assist. All needs met. Education OT Patient Education: Correct positioning, Exercise program, Modified ADL techniques, Progress toward Goal/Update tx plan, Purpose of tx/functional activities, Reviewed precautions, Rehab process, Transfer techniques Teaching Recipient: Patient Teaching Methods: Demonstration, Discussion Response to Teaching: Verbalize Understanding, Return Demonstration OT Short Term Goals Short Term Goals Time Frame: Dec 25, 2020 Eatin Oral hygiene: 3 Toileting hygiene: 3 Shower/bathe self: 3 Upper body dressin Lower body dressin Putting on/taking off footwear: 3 OT Enrichment Specialist Goals Mcc Goals Time Frame: Jan 08, 2021 Eating (QC): 6 Oral Hygiene (QC): 5 Toileting Hygiene (QC): 4 Shower/Bathe Self (QC): 4 Upper Body Dressing (QC): 5 Lower Body Dressing (QC): 4 On/Off Footwear (QC): 4 Additional Goals: 1-Demonstrate ADL Tasks, 2-Verbalize Understanding, 3-ImproveStrength/Helene 1=Demonstrate adherence to instructed precautions during ADL tasks. 2=Patient will verbalize/demonstrate understanding of assistive devices/modifications for ADL. 3=Patient will improve strength/tolerance for activity to enable patient to perform ADL's. OT Education/Plan Problem List/Assessment Assessment: Decreased Activ Tolerance, Decreased UE Strength, Dependent Transfers, Impaired Coordination, Impaired Funct Balance, Impaired I ADL's, Impaired Self-Care Skills, Restricted Funct UE ROM Discharge Recommendations Plan/Recommendations: Continue POC Therapy Discharge Recommendati: Post Acute OT Treatment Plan/Plan of Care Treatment,Training & Education: Yes Patient would benefit from OT for education, treatment and training to promote independence in ADL's, mobility, safety and/or upper extremity function for ADL's. Plan of Care: ADL Retraining, Functional Mobility, Group Exercise/Act as Ind, UE Funct Exercise/Act Treatment Duration: Jan 08, 2021 Frequency: At least 5 of 7 days/Wk (IRF) Estimated Hrs Per Day: 1.5 hours per day Agreement: Yes Rehab Potential: Good Time/GCodes Start Time: 10:30 Stop Time: 11:45 Total Time Billed (hr/min): 75 Billed Treatment Time 1, ADL x 60minutes, NM x 15minutes MIGEUL CARRIZALES OT December 16, 2020 13:31
--- NOTE | 2020-12-16 14:55 | Physical Therapy Daily Note ---
PT Daily Note-Current Subjective Patient in WC in room pre tx, agrees to PT, has no complaints of pain. Appearance Patient in bed post tx with nurse call, phone, tray, all needs met. Mental Status Patient Orientation: Person, Place, Situation Transfers SCALE: Activities may be completed with or without assistive devices. 9-Jgbrnowsbg-unpaqiq completes the activity by him/herself with no assistance from a helper. 5-Set-up or Clean-up Assistance-helper sets up or cleans up; patient completes activity. [place] assists only prior to or following the activity. 4-Supervision or Touching Assistance-helper provides verbal cues and/or touchi ng/steadying and/or contact guard assistance as patient completes activity. Assistance may be provided throughout the activity or intermittently. 3-Partial/Moderate Assistance-helper does LESS THAN HALF the effort. [place] lifts, holds or supports trunk or limbs, but provides less than half the effort. 2-Substantial/Maximal Assistance-helper does MORE THAN HALF the effort. [place] lifts or holds trunk or limbs and provides more than half the effort. 7-Rlfhaynce-uxwvpy does ALL the effort. Patient does none of the effort to complete the activity. Or, the assistance of 2 or more helpers is required for the patient to complete the activity. If activity was not attempted, code reason: 7-Patient Refused. 9-Not Applicable-not attempted and the patient did not perform the activity before the current illness, exacerbation or injury. 10-Not Attempted due to Environmental Limitations-(lack of equipment, weather restraints, etc.). 88-Not Attempted due to Medical Conditions or Safety Concerns. Roll Left & Right (QC): 4 Sit to Lying (QC): 3 Sit to Stand (QC): 3 Chair/Wyw-ac-Lcvba Xfer(QC): 3 Wheelchair Training Does the Pt Use a Wheelchair?: Yes Wheel 50 ft with 2 turns (QC): 4 Type of Wheelchair: Manual 120'x2, patient uses both feet and right arm to propel Exercises NuStep Minutes: 15 NuStep Workload: 4 Treatments WC mobility, transfers, functional strengthening Assessment Current Status: Fair Progress improving endurance PT Short Term Goals Short Term Goals Time Frame: December 18, 2020 Roll Left & Right: 4 Sit to lyin Lying to sitting on side of be: 4 Sit to stand: 3 Chair/jtq-xh-khzcc transfer: 3 Walk 10 feet: 3 Walk 50 feet with two turns: 3 PT Dance Choreographer Goals Dance Choreographer Goals PT Assisted Goals Time Frame: Jan 01, 2021 Roll Left & Right (QC): 6 Sit to Lying (QC): 6 Lying-Sitting on Side/Bed(QC): 6 Sit to Stand (QC): 4 Chair/Bxx-hz-Ibzjb Xfer(QC): 4 Toilet Transfer (QC): 4 Car Transfer (QC): 4 Does the Patient Walk: Yes Walk 10 feet (QC): 4 Walk 50ft with 2 Turns (QC): 4 Walk 150 ft (QC): 88 Walking 10ft on Uneven Surface: 3 1 Step (curb) (QC): 3 4 Steps (QC): 88 12 Steps (QC): 88 Picking up an Object (QC): 88 Wheel 50 feet with 2 turns (QC: 5 Wheel 150 feet: 5 PT Plan Problem List Problem List: Activity Tolerance, Functional Strength, Safety, Balance, Gait, Transfer, Bed Mobility, ROM Treatment/Plan Treatment Plan: Continue Plan of Care Treatment Plan: Bed Mobility, Education, Functional Activity Helene, Functional Strength, Group Therapy, Gait, Safety, Therapeutic Exercise, Transfers Treatment Duration: Jan 01, 2021 Frequency: At least 5 of 7 days/Wk (IRF) Estimated Hrs Per Day: 1.5 hours per day Patient and/or Family Agrees t: Yes Safety Risks/Education Patient Education: Transfer Techniques, Correct Positioning, W/C Management, Safety Issues Teaching Recipient: Patient Teaching Methods: Demonstration, Discussion Response to Teaching: Reinforcement Needed Time/GCodes Time In: 1430 Time Out: 1450 Total Billed Treatment Time: 20 Total Billed Treatment 1 visit EX BHARAT MICHAEL PT December 16, 2020 14:55
[2020-12-16] MEDS: polyethylene glycoL POWDER 17 GM (MIRALAX) PACK PO SCH (19:51)
[2020-12-16 20:00] VITALS: BP 123/60
[2020-12-16] MEDS: MELATONIN 3 MG TABLET PO SCH (20:23)
--- NOTE | 2020-12-17 05:45 | PM&R Progress Note ---
Subjective HPI/CC On Admission Date Seen by Provider: December 17, 2020 Time Seen by Provider: 10:30 Subjective/Events-last exam 12/17/20: Pt doing pretty well Still requiring a bedside commode and two people assist DC telemetry Bowels are moving okay Softer stools noted 12/16/20: Pt doing really well Telemetry noted, HR of 30s but on assessment it was 78 Decreasing BP medications Bowels moved yesterday 12/15/20: Pt doing pretty well Had a BM yesterday but it was hard Had a bloody nose so I will start nasal spray Overall no major concerns 12/14/20: Patient denies any issues No pain reported BM+ 12/13/20: Patient doing well Having some abdominal cramps from laxatives No other issues reported Tearful at times Doing well with thin liquids 12/12/20: Pt doing okay but a little bit tired Decreased stamina from the stroke No BM so laxatives will be given, this is the third day without a BM 12/11/20: Pt settling in well today Doing very well Taking pills okay Feeds herself Flaccidity on the left side noted Bowels moved two days ago Review of Systems General: Fatigue, Malaise Neurological: Weakness Objective Exam Vital Signs Vital Signs Date Time Temp Pulse Resp B/P (MAP) Pulse Ox O2 Delivery O2 Flow Rate FiO2 12/17/20 20:17 36.8 96 20 120/64 (82) 90 Room Air 12/12/20 06:07 21 Capillary Refill : General Appearance: No Apparent Distress, WD/WN, Chronically ill, Thin HEENT: PERRL/EOMI, Normal ENT Inspection, Pharynx Normal Neck: Full Range of Motion, Normal Inspection, Non Tender, Supple, Carotid Bruit Respiratory: Chest Non Tender, Lungs Clear, Normal Breath Sounds, No Accessory Muscle Use, No Respiratory Distress Cardiovascular: Regular Rate, Rhythm, No Edema, No Gallop, No JVD, No Murmur, Normal Peripheral Pulses Gastrointestinal: Normal Bowel Sounds, No Organomegaly, No Pulsatile Mass, Non Tender, Soft Back: Normal Inspection, No CVA Tenderness, No Vertebral Tenderness Extremity: Normal Capillary Refill, Normal Inspection, Normal Range of Motion, Non Tender, No Calf Tenderness, No Pedal Edema Neurologic/Psychiatric: Alert, Oriented x3, Abnormal Gait, Aphasia, Depressed Affect, Facial Droop, Motor Weakness (left sided flaccidity) Skin: Normal Color, Warm/Dry Lymphatic: No Adenopathy Results/Procedures Lab Patient resulted labs reviewed. FIM Transfers Therapy Code Descriptions/Definitions Functional [place] Measure: 0=Not Assessed/NA 4=Minimal Assistance 1=Total Assistance 5=Supervision or Setup 2=Maximal Assistance 6=Modified [place] 3=Moderate Assistance 7=Complete IndependenceSCALE: Activities may be completed with or without assistive devices. 0-Lqvrrjtktq-ugibeuz completes the activity by him/herself with no assistance from a helper. 5-Set-up or Clean-up Assistance-helper sets up or cleans up; patient completes activity. [place] assists only prior to or following the activity. 4-Supervision or Touching Assistance-helper provides verbal cues and/or touching/steadying and/or contact guard assistance as patient completes activity. Assistance may be provided throughout the activity or intermittently. 3-Partial/Moderate Assistance-helper does LESS THAN HALF the effort. [place] lifts, holds or supports trunk or limbs, but provides less than half the effort. 2-Substantial/Maximal Assistance-helper does MORE THAN HALF the effort. [place] lifts or holds trunk or limbs and provides more than half the effort. 7-Ypjgqosaq-wvqumn does ALL the effort. Patient does none of the effort to complete the activity. Or, the assistance of 2 or more helpers is required for the patient to complete the activity. If activity was not attempted, code reason: 7-Patient Refused. 9-Not Applicable-not attempted and the patient did not perform the activity before the current illness, exacerbation or injury. 10-Not Attempted due to Environmental Limitations-(lack of equipment, weather restraints, etc.). 88-Not Attempted due to Medical Conditions or Safety Concerns. Roll Left to Right (QC): 4 Sit to Lying (QC): 3 Sit to Stand (QC): 3 Chair/Kvu-xa-Nohlo Xfer(QC): 3 Car Transfer (QC): 3 Gait Training Does the Patient Walk?: Yes Distance: 20'x4 Walk 10 feet (QC): 3 Walk 50 ft with 2 Turns(QC): 88 Walk 150 ft (QC): 88 Walking 10ft/uneven surface-QC: 88 Gait Persons Needed: 1 Gait Assistive Device: Walker Alec Wheelchair Training Does the Pt Use a Wheelchair?: Yes Distance: 50' Wheel 50 ft with 2 turns (QC): 4 Wheel 150 ft (QC): 88 Type of Wheelchair: Manual Stair Training 1 Step (curb) (QC): 88 4 Steps (QC): 88 12 Steps (QC): 88 Balance Picking up an Object (QC): 88 ADL-Treatment Eating (QC): 5 Oral Hygiene (QC): 3 (Min assist to brush dentures at sink.) Bathing Location: L Arm, R Arm, L Upper Leg, R Upper Leg, Chest, Abdomen, Buttocks, Perineal Area Shower/Bathe Self (QC): 3 (Min assist in shower to wash all parts.) Upper Body Dressing (QC): 3 (Mod assist overall for shirt.) Lower Body Dressing (QC): 1 (Assist to don brief and pants over feet, and assist to don over hips while another person assists with stance.) On/Off Footwear (QC): 2 Toileting Hygiene (QC): 4 (SBA to cleanse self after urination.) Toilet Transfer (QC): 2 Assessment/Plan Assessment and Plan Assess & Plan/Chief Complaint Assessment: 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
[2020-12-17] MEDS: MULTIVIT W/MINERALS TAB (THERAGRAN M) PO SCH (06:16)
[2020-12-17] MEDS: CYANOCOBALAMIN 1,000 MCG (VITAMIN B-12) TABLET PO SCH (06:16)
[2020-12-17 08:00] VITALS: BP 119/57
[2020-12-17] MEDS: NYSTATIN ORAL SUSP 5 ML UDC PO SCH ×4 (08:17→20:08)
[2020-12-17] MEDS: CALCIUM CARBONATE 600 MG (CALCARB) TAB PO SCH (08:17)
[2020-12-17] MEDS: lisINopril 10 MG (PRINIVIL) TABLET PO SCH (08:18)
[2020-12-17] MEDS: DOCUSATE SODIUM 100 MG (COLACE) CAP PO SCH ×2 (08:18→20:08)
[2020-12-17] MEDS: NICOTINE 14 MG (NICODERM) PATCH TD SCH (08:18)
[2020-12-17] MEDS: SENNA W/DOCUSATE (SENOKOT S) TABLET PO SCH ×2 (08:18→20:08)
[2020-12-17] MEDS: NICOTINE PATCH REMOVAL TP SCH (08:18)
[2020-12-17] MEDS: ASPIRIN E.C. 81 MG (ECOTRIN) TAB PO SCH (08:18)
--- NOTE | 2020-12-17 09:31 | Physical Therapy Daily Note ---
PT Daily Note-Current Subjective Pt. agrees to Rx. no c/o pain etc. Pain Location: No Pain Reported Mental Status Patient Orientation: Person, Place, Situation Transfers SCALE: Activities may be completed with or without assistive devices. 9-Xtwheiajyf-cqkukwi completes the activity by him/herself with no assistance from a helper. 5-Set-up or Clean-up Assistance-helper sets up or cleans up; patient completes activity. [place] assists only prior to or following the activity. 4-Supervision or Touching Assistance-helper provides verbal cues and/or touching/steadying and/or contact guard assistance as patient completes activity. Assistance may be provided throughout the activity or intermittently. 3-Partial/Moderate Assistance-helper does LESS THAN HALF the effort. [place] lifts, holds or supports trunk or limbs, but provides less than half the effort. 2-Substantial/Maximal Assistance-helper does MORE THAN HALF the effort. [place] lifts or holds trunk or limbs and provides more than half the effort. 4-Ptnbqnbno-kadshy does ALL the effort. Patient does none of the effort to complete the activity. Or, the assistance of 2 or more helpers is required for the patient to complete the activity. If activity was not attempted, code reason: 7-Patient Refused. 9-Not Applicable-not attempted and the patient did not perform the activity before the current illness, exacerbation or injury. 10-Not Attempted due to Environmental Limitations-(lack of equipment, weather restraints, etc.). 88-Not Attempted due to Medical Conditions or Safety Concerns. Roll Left & Right (QC): 4 Sit to Lying (QC): 5 Lying to Sitting/Side of Bed(Q: 3 Sit to Stand (QC): 3 Chair/Ubb-iu-Klobx Xfer(QC): 3 Gait Training Does the Patient Walk?: Yes Walk 10 feet (QC): 2 Gait Persons Needed: 2 Gait Assistive Device: Walker Platform Wheelchair Training Does the Pt Use a Wheelchair?: Yes Wheel 50 ft with 2 turns (QC): 4 Type of Wheelchair: Manual needs constant cung to advance LLE , able to brake bilat with Right hand, needs directed so as to avoid objects Exercises Supine Ex: Bridging, Ankle pumps, Rolling, Heel Slides, Short Arc Quads, Scooting, Straight leg raise, Hip abd/add Supine Reps: 15 Seated Therapy Exercises: Ankle pumps, Sit to stand, Long arc quads, Hip flexion, Hip abd/add Seated Reps: 15 Assessment Current Status: Good Progress very impulsive, poor coordination, needs near assist of 2 for safety and gait trials PT Short Term Goals Short Term Goals Time Frame: December 18, 2020 Roll Left & Right: 4 Sit to lyin Lying to sitting on side of be: 4 Sit to stand: 3 Chair/sar-uc-caeux transfer: 3 Walk 10 feet: 3 Walk 50 feet with two turns: 3 PT Yeast Pumper Goals Residential Goals PT Yeast Pumper Goals Time Frame: Jan 01, 2021 Roll Left & Right (QC): 6 Sit to Lying (QC): 6 Lying-Sitting on Side/Bed(QC): 6 Sit to Stand (QC): 4 Chair/Pjb-ts-Tuoxm Xfer(QC): 4 Toilet Transfer (QC): 4 Car Transfer (QC): 4 Does the Patient Walk: Yes Walk 10 feet (QC): 4 Walk 50ft with 2 Turns (QC): 4 Walk 150 ft (QC): 88 Walking 10ft on Uneven Surface: 3 1 Step (curb) (QC): 3 4 Steps (QC): 88 12 Steps (QC): 88 Picking up an Object (QC): 88 Wheel 50 feet with 2 turns (QC: 5 Wheel 150 feet: 5 PT Plan Treatment/Plan Treatment Plan: Continue Plan of Care Treatment Plan: Bed Mobility, Education, Functional Activity Helene, Functional Strength, Group Therapy, Gait, Safety, Therapeutic Exercise, Transfers Treatment Duration: Jan 01, 2021 Frequency: At least 5 of 7 days/Wk (IRF) Estimated Hrs Per Day: 1.5 hours per day Patient and/or Family Agrees t: Yes Safety Risks/Education Patient Education: Gait Training, Transfer Techniques, Correct Positioning, W/C Management, Disease Process, Safety Issues Teaching Recipient: Patient Teaching Methods: Demonstration, Discussion Response to Teaching: Verbalize Understanding, Return Demonstration, Reinforcement Needed Time/GCodes Time In: 845 Time Out: 930 Total Billed Treatment Time: 45 Total Billed Treatment 1,EX20m,GT10m,FA15m JORGE CLEANING CONTENT ARCHITECT December 17, 2020 09:31
--- NOTE | 2020-12-17 10:06 | Cardiology Progress Note ---
Subjective Date Seen by Provider: December 17, 2020 Time Seen by Provider: 10:05 Subjective/Events-last exam Patient sitting up in bed, no new complaints, denies any chest pain or dyspnea Review of Systems General: No Chills, No Night Sweats; Fatigue; No Malaise, No Appetite, No Other HEENT: No Head Aches, No Visual Changes, No Eye Pain, No Ear Pain, No Dysphasia, No Sinus Congestion, No Post Nasal Drip, No Sore Throat, No Other Pulmonary: Dyspnea; No Cough, No Pleuritic Chest Pain, No Other Cardiovascular: No: Chest Pain, Palpitations, Orthopnea, Paroxysmal Noc. Dyspnea, Edema, Lt Headedness, Other Objective-Cardiology Exam Last Set of Vital Signs Vital Signs 12/12/20 12/17/20 12/17/20 06:07 08:00 11:40 Temp 35.3 Pulse 90 Resp 16 B/P (MAP) 119/57 (77) Pulse Ox 92 O2 Delivery Room Air FiO2 21 Capillary Refill : General: Alert, Oriented X3, Cooperative HEENT: Atraumatic, PERRLA Neck: Supple, No JVD Lungs: Clear to Auscultation, Normal Air Movement Heart: Regular Rate, Normal S1, Normal S2 Abdomen: Normal Bowel Sounds, Soft Extremities: No Clubbing, No Cyanosis Skin: No Rashes Neuro: Normal Gait, Normal Speech A/P-Cardiology Admission Diagnosis Cryptogenic stroke HTN HLD Assessment/Plan Cryptogenic stroke - MRI showed posterior R frontal lobe stroke possibly in splenium of corpus collosum; telemetry during her stay to monitor for possible Afib, continue current medications and monitor Anemia, worsening. Receiving blood transfusion, seen earlier today. Discussed the management plan with Dr. Moon. Hypertension, better controlled, continue to monitor blood pressure. Hyperlipidemia started on Lipitor. Monitor lipids General debility/weakness - PT/OT with IRF, lovenox for DVT prophylaxis History of breast cancer. In remission Tobaccoism, educated on smoking cessation Supervisory-Addendum Brief Supervisory Addendum Participated in pt care: history, MDM, physical Personally performed: exam, history, MDM Care discussed with: ISAIAS Notes: Patient was seen and evaluated with Etta, examination performed, management plan was discussed, agree with the current scribed note, I made few changes to the note using Italic font ETTA URIBE December 17, 2020 10:06 am DOROTHY RIVERA MD December 17, 2020 4:44 pm
--- NOTE | 2020-12-17 10:13 | Speech Therapy Daily Note ---
Speech Daily Progress Note Subjective Date Seen by Provider: December 17, 2020 Time Seen by Provider: 00:30 Patient was sitting up in her recliner, requesting to go to the restroom. Nursing assistance called for transfer to bedside commode. Objective Patient completed OME with minimal cuing. Patient's speech continues to be more intelligible with effective communication noted. Patient's oral intake remains good with safety strategies being utilized. Assessment Assessment Current Status: Good Progress Treatment Plan Continue Plan of Care Speech Short Term Goals Short Term Goals Short Term Goals 1) Patient will complete safety awareness tasks related to her daily needs at 80% or greater with minimal cues. 2) Patient will complete speech tasks at 80% or greater with minimal cues. 3) Patient will complete safe oral intake at 90% or greater with least restrictive diet. 4) Patient will utilize compensatory strategies for safe intake at 90% or greater. Speech Carpenter Mold Goals Alf Goals Patient will improve cognitive-communication abilities in order to complete daily living tasks with minimal assist. Patient will maintain adequate nutrition/hydration via safe effective swallow function. Speech-Plan Patient/Family Goals Patient/Family Goals: Patient plans on returning home, however due to her inability to care for herself, her discharge plan has not been estabilished fully. Treatment Plan Speech Therapy Treatment Plan: Continue Plan of Care Treatment Duration: December 19, 2020 Frequency: 4 times per week (Patient will receive skilled ST 4-5x per week) Estimated Hrs Per Day: .5 hour per day Rehab Potential: Good Barriers to Learning: Patient's recent CVA with debility, age Pt/Family Agrees to Plan: Yes Safety Risks/Education Teaching Recipient: Patient Teaching Methods: Demonstration, Discussion Response to Teaching: Verbalize Understanding, Return Demonstration Education Topics Provided: Continued safety within her room and with all oral intake Time Speech Therapy Time In: 10:00 Speech Therapy Time Out: 10:30 Total Billed Time: 30 Billed Treatment Time 1, KARLIE, ARNULFO Borden December 17, 2020 10:13
[2020-12-17] MEDS: ENOXAPARIN 40 MG/0.4 ML (LOVENOX) SYR SC SCH (11:14)
[2020-12-17] MEDS: RT-ALBUTEROL/IPRATROPIUM 3 ML (DUONEB) VIAL INH SCH ×2 (11:40→19:20)
--- NOTE | 2020-12-17 12:52 | Occupational Ther Daily Note ---
OT Current Status-Daily Note Subjective No pain reported. Mental Status/Objective Patient Orientation: Person, Place, Time, Situation ADL-Treatment Therapy Code Descriptions/Definitions Functional [place] Measure: 0=Not Assessed/NA 4=Minimal Assistance 1=Total Assistance 5=Supervision or Setup 2=Maximal Assistance 6=Modified [place] 3=Moderate Assistance 7=Complete IndependenceSCALE: Activities may be completed with or without assistive devices. 9-Nevzspfrxw-yuhgjwq completes the activity by him/herself with no assistance from a helper. 5-Set-up or Clean-up Assistance-helper sets up or cleans up; patient completes activity. [place] assists only prior to or following the activity. 4-Supervision or Touching Assistance-helper provides verbal cues and/or touching/steadying and/or contact guard assistance as patient completes activity. Assistance may be provided throughout the activity or intermittently. 3-Partial/Moderate Assistance-helper does LESS THAN HALF the effort. [place] lifts, holds or supports trunk or limbs, but provides less than half the effort. 2-Substantial/Maximal Assistance-helper does MORE THAN HALF the effort. [place] lifts or holds trunk or limbs and provides more than half the effort. 4-Inhdiujxq-qqtvkx does ALL the effort. Patient does none of the effort to complete the activity. Or, the assistance of 2 or more helpers is required for the patient to complete the activity. If activity was not attempted, code reason: 7-Patient Refused. 9-Not Applicable-not attempted and the patient did not perform the activity before the current illness, exacerbation or injury. 10-Not Attempted due to Environmental Limitations-(lack of equipment, weather restraints, etc.). 88-Not Attempted due to Medical Conditions or Safety Concerns. Other Treatment Pt. up in chair. Agrees to work with OT. Transfers to right side, her strong side, with min assist to stand and reach to wheelchair. She is able to pivot to wheelchair. Pt. self propels wheelchair to therapy gym. Transfers to mat and works on sitting balance, leaning side to side, PNF pattern with right UE reaching in all planes, and trunk flexion/extension. Noted LOB toward left when leaning too far left. Pt. does have some movement in left UE at elbow, wrist, and fingers. Grasp not functional yet, but pt. does use right UE to assist left . Utilized e-stim at 8 mirian-amps for finger flexion x 8 minutes. Tolerated well. Transferred sit-supine with max assist and OT provided gentle PROM to left UE in all planes and joints for comfort and positioning. All needs met back in wheelchair and pt. propels back to room. Transferred back to reclining chair with mod assist toward affected side. All needs met. Education OT Patient Education: Correct positioning, Exercise program, Modified ADL techniques, Progress toward Goal/Update tx plan, Purpose of tx/functional activities, Reviewed precautions, Rehab process, Transfer techniques Teaching Recipient: Patient Teaching Methods: Demonstration, Discussion Response to Teaching: Verbalize Understanding, Return Demonstration OT Short Term Goals Short Term Goals Time Frame: Dec 25, 2020 Eatin Oral hygiene: 3 Toileting hygiene: 3 Shower/bathe self: 3 Upper body dressin Lower body dressin Putting on/taking off footwear: 3 OT Clinical Resource Nurse Goals Longterm Goals Time Frame: Jan 08, 2021 Eating (QC): 6 Oral Hygiene (QC): 5 Toileting Hygiene (QC): 4 Shower/Bathe Self (QC): 4 Upper Body Dressing (QC): 5 Lower Body Dressing (QC): 4 On/Off Footwear (QC): 4 Additional Goals: 1-Demonstrate ADL Tasks, 2-Verbalize Understanding, 3- ImproveStrength/Helene 1=Demonstrate adherence to instructed precautions during ADL tasks. 2=Patient will verbalize/demonstrate understanding of assistive devices/modifications for ADL. 3=Patient will improve strength/tolerance for activity to enable patient to perform ADL's. OT Education/Plan Problem List/Assessment Assessment: Decreased Activ Tolerance, Decreased UE Strength, Dependent Transfers, Impaired Bed Mobility, Impaired Coordination, Impaired Funct Balance, Impaired I ADL's, Impaired Self-Care Skills, Restricted Funct UE ROM Discharge Recommendations Plan/Recommendations: Continue POC Therapy Discharge Recommendati: Post Acute OT Treatment Plan/Plan of Care Treatment,Training & Education: Yes Patient would benefit from OT for education, treatment and training to promote independence in ADL's, mobility, safety and/or upper extremity function for ADL's. Plan of Care: ADL Retraining, Functional Mobility, Group Exercise/Act as Ind, UE Funct Exercise/Act Treatment Duration: Jan 08, 2021 Frequency: At least 5 of 7 days/Wk (IRF) Estimated Hrs Per Day: 1.5 hours per day Agreement: Yes Rehab Potential: Good Time/GCodes Start Time: 10:30 Stop Time: 11:15 Total Time Billed (hr/min): 45 Billed Treatment Time 1, FA x 3 MIGUEL CARRIZALES OT December 17, 2020 12:52
--- NOTE | 2020-12-17 14:29 | Therapy Group Daily Note ---
Therapy Daily Group Note Patient Education Topic Other List Below (memory games and strategies) Exercises LE Seated Exercise, UE Exercise Session Ratio (pt:therapist): 3:1 Goal of Session: Memory Strategies, UE/LE Strengthing, Other (list) Goal Met for this Session: Yes Pt Benefit of Group: Improved Cognition, Recognition of Peers, Socialization Other/Notes Pt. participated in group PT OT session this date. Pt. came ambulated to and from with SBA. Pts. introduced themselves sharing hometown and favorite restaurant. Pts. were educated in the importance of memory for safety and funct ion as well as given life examples. Pts participated in memory game challenged remember images and match them as well as facilitating hand eye coordination as pts threw bartlett bags to choose their image etc. Pts also chose 4 words and were challenged to remember them for duration of memory image game. Pts all participated in seated U&L extremity exercises. Pt. to room after group with assist, call barillas at hand Start Time: 13:00 Stop Time: 14:15 Total Billed Treatment Time: 75 Total Billed Treatment 1,GRP JORGE CLEANING MEDICAL INSTRUMENT CABLE FABRICATOR December 17, 2020 14:29
[2020-12-17] MEDS: polyethylene glycoL POWDER 17 GM (MIRALAX) PACK PO SCH (20:08)
[2020-12-17] MEDS: MELATONIN 3 MG TABLET PO SCH (20:08)
[2020-12-17 20:17] VITALS: BP 120/64
[2020-12-18] MEDS: CYANOCOBALAMIN 1,000 MCG (VITAMIN B-12) TABLET PO SCH (06:01)
[2020-12-18] MEDS: MULTIVIT W/MINERALS TAB (THERAGRAN M) PO SCH (06:01)
--- NOTE | 2020-12-18 06:07 | PM&R Progress Note ---
Subjective HPI/CC On Admission Date Seen by Provider: December 18, 2020 Time Seen by Provider: 11:00 Subjective/Events-last exam 12/18/20: Patient doing well Plateaued in PT Needs NHP 12/17/20: Pt doing pretty well Still requiring a bedside commode and two people assist DC telemetry Bowels are moving okay Softer stools noted 12/16/20: Pt doing really well Telemetry noted, HR of 30s but on assessment it was 78 Decreasing BP medications Bowels moved yesterday 12/15/20: Pt doing pretty well Had a BM yesterday but it was hard Had a bloody nose so I will start nasal spray Overall no major concerns 12/14/20: Patient denies any issues No pain reported BM+ 12/13/20: Patient doing well Having some abdominal cramps from laxatives No other issues reported Tearful at times Doing well with thin liquids 12/12/20: Pt doing okay but a little bit tired Decreased stamina from the stroke No BM so laxatives will be given, this is the third day without a BM 12/11/20: Pt settling in well today Doing very well Taking pills okay Feeds herself Flaccidity on the left side noted Bowels moved two days ago Review of Systems Neurological: Weakness, Incoordination Objective Exam Vital Signs Vital Signs Date Time Temp Pulse Resp B/P (MAP) Pulse Ox O2 Delivery O2 Flow Rate FiO2 12/18/20 20:15 Room Air 12/18/20 20:00 36.4 83 16 97/98 (98) 95 Capillary Refill : General Appearance: No Apparent Distress, WD/WN, Chronically ill, Thin HEENT: PERRL/EOMI, Normal ENT Inspection, Pharynx Normal Neck: Full Range of Motion, Normal Inspection, Non Tender, Supple, Carotid Bruit Respiratory: Chest Non Tender, Lungs Clear, Normal Breath Sounds, No Accessory Muscle Use, No Respiratory Distress Cardiovascular: Regular Rate, Rhythm, No Edema, No Gallop, No JVD, No Murmur, Normal Peripheral Pulses Gastrointestinal: Normal Bowel Sounds, No Organomegaly, No Pulsatile Mass, Non Tender, Soft Back: Normal Inspection, No CVA Tenderness, No Vertebral Tenderness Extremity: Normal Capillary Refill, Normal Inspection, Normal Range of Motion, Non Tender, No Calf Tenderness, No Pedal Edema Neurologic/Psychiatric: Alert, Oriented x3, Abnormal Gait, Aphasia, Depressed Affect, Facial Droop, Motor Weakness (left sided flaccidity) Skin: Normal Color, Warm/Dry Lymphatic: No Adenopathy Results/Procedures Lab Patient resulted labs reviewed. FIM Transfers Therapy Code Descriptions/Definitions Functional [place] Measure: 0=Not Assessed/NA 4=Minimal Assistance 1=Total Assistance 5=Supervision or Setup 2=Maximal Assistance 6=Modified [place] 3=Moderate Assistance 7=Complete IndependenceSCALE: Activities may be completed with or without assistive devices. 3-Dlbaktsmiw-zrxjtkt completes the activity by him/herself with no assistance from a helper. 5-Set-up or Clean-up Assistance-helper sets up or cleans up; patient completes activity. [place] assists only prior to or following the activity. 4-Supervision or Touching Assistance-helper provides verbal cues and/or touching/steadying and/or contact guard assistance as patient completes activity. Assistance may be provided throughout the activity or intermittently. 3-Partial/Moderate Assistance-helper does LESS THAN HALF the effort. [place] lifts, holds or supports trunk or limbs, but provides less than half the effort. 2-Substantial/Maximal Assistance-helper does MORE THAN HALF the effort. [place] lifts or holds trunk or limbs and provides more than half the effort. 6-Sdnaewytk-fygcnc does ALL the effort. Patient does none of the effort to complete the activity. Or, the assistance of 2 or more helpers is required for the patient to complete the activity. If activity was not attempted, code reason: 7-Patient Refused. 9-Not Applicable-not attempted and the patient did not perform the activity before the current illness, exacerbation or injury. 10-Not Attempted due to Environmental Limitations-(lack of equipment, weather restraints, etc.). 88-Not Attempted due to Medical Conditions or Safety Concerns. Roll Left to Right (QC): 4 Sit to Lying (QC): 5 Sit to Stand (QC): 3 Chair/Tik-vu-Gvwwa Xfer(QC): 3 Car Transfer (QC): 3 Gait Training Does the Patient Walk?: Yes Distance: 20'x4 Walk 10 feet (QC): 2 Walk 50 ft with 2 Turns(QC): 88 Walk 150 ft (QC): 88 Walking 10ft/uneven surface-QC: 88 Gait Persons Needed: 2 Gait Assistive Device: Walker Platform Wheelchair Training Does the Pt Use a Wheelchair?: Yes Distance: 50' Wheel 50 ft with 2 turns (QC): 4 Wheel 150 ft (QC): 88 Type of Wheelchair: Manual Stair Training 1 Step (curb) (QC): 88 4 Steps (QC): 88 12 Steps (QC): 88 Balance Picking up an Object (QC): 88 ADL-Treatment Eating (QC): 5 Oral Hygiene (QC): 3 (Min assist to brush dentures at sink.) Bathing Location: L Arm, R Arm, L Upper Leg, R Upper Leg, Chest, Abdomen, Buttocks, Perineal Area Shower/Bathe Self (QC): 3 (Min assist in shower to wash all parts.) Upper Body Dressing (QC): 3 (Mod assist overall for shirt.) Lower Body Dressing (QC): 1 (Assist to don brief and pants over feet, and assist to don over hips while another person assists with stance.) On/Off Footwear (QC): 2 Toileting Hygiene (QC): 4 (SBA to cleanse self after urination.) Toilet Transfer (QC): 2 Assessment/Plan Assessment and Plan Assess & Plan/Chief Complaint Assessment: 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 HTN HLP h/o breast cancer Smoker s/p loop recorder 12/18/20 Plan: Aggressive rehab Walker with platform Monitor closely 12/11/20: Monitor BP Cardiology consultation 12/12/20: BM regimen Fall risk 12/13/20: Monitor O2 BP management Cardiology appreciated 12/14/20: Improved status Monitor closely 12/15/20: Monitor closely BP monitored 12/16/20: Monitor BP Monitor Tely 12/17/20: Monitor closely Recheck next week 12/18/20: Monitor closely BP monitor Loop recorder (1) Acute CVA (cerebrovascular accident) Status: Acute (2) HTN (hypertension) Status: Acute (3) HLD (hyperlipidemia) Status: Acute MOHIT BOYKIN DO December 18, 2020 06:07
[2020-12-18] MEDS: RT-ALBUTEROL/IPRATROPIUM 3 ML (DUONEB) VIAL INH SCH (07:14)
[2020-12-18 08:00] VITALS: BP 123/58
--- NOTE | 2020-12-18 08:14 | Cardiology Progress Note ---
Subjective Date Seen by Provider: December 18, 2020 Time Seen by Provider: 08:08 Subjective/Events-last exam Patient is sitting up in chair, denies any chest pain or dyspnea. Review of Systems General: No Chills, No Night Sweats, No Fatigue, No Malaise, No Appetite, No Other HEENT: No Head Aches, No Visual Changes, No Eye Pain, No Ear Pain, No Dysphasia, No Sinus Congestion, No Post Nasal Drip, No Sore Throat, No Other Pulmonary: No Dyspnea, No Cough, No Pleuritic Chest Pain, No Other Cardiovascular: No: Chest Pain, Palpitations, Orthopnea, Paroxysmal Noc. Dyspnea, Edema, Lt Headedness, Other Objective-Cardiology Exam Last Set of Vital Signs Vital Signs 12/12/20 12/17/20 06:07 20:17 Temp 36.8 Pulse 96 Resp 20 B/P (MAP) 120/64 (82) Pulse Ox 90 O2 Delivery Room Air FiO2 21 Capillary Refill : General: Alert, Oriented X3, Cooperative HEENT: Atraumatic, PERRLA Neck: Supple, No JVD Lungs: Clear to Auscultation, Normal Air Movement Heart: Regular Rate, Normal S1, Normal S2 Abdomen: Normal Bowel Sounds, Soft Extremities: No Clubbing, No Cyanosis Skin: No Rashes Neuro: Normal Gait, Normal Speech A/P-Cardiology Admission Diagnosis Cryptogenic stroke HTN HLD Assessment/Plan Cryptogenic stroke - MRI showed posterior R frontal lobe stroke possibly in splenium of corpus collosum; telemetry showing no atrial fibrillation. Planning for LINq implantation later today. Hypertension, better controlled, continue to monitor blood pressure. Hyperlipidemia started on Lipitor. Monitor lipids General debility/weakness - PT/OT with IRF, lovenox for DVT prophylaxis History of breast cancer. In remission Tobaccoism, educated on smoking cessation Supervisory-Addendum Brief Supervisory Addendum Participated in pt care: history, MDM, physical Personally performed: exam, history, MDM Care discussed with: ISAIAS Notes: Patient was seen and evaluated with Etta, examination performed, management plan was discussed, agree with the current scribed note, I made few changes to the note using Italic font ETTA URIBE December 18, 2020 08:14 DOROTHY IRVERA MD December 18, 2020 08:25
[2020-12-18] MEDS: CALCIUM CARBONATE 600 MG (CALCARB) TAB PO SCH (08:36)
[2020-12-18] MEDS: NYSTATIN ORAL SUSP 5 ML UDC PO SCH ×4 (08:36→20:48)
[2020-12-18] MEDS: DOCUSATE SODIUM 100 MG (COLACE) CAP PO SCH ×2 (08:36→20:48)
[2020-12-18] MEDS: ASPIRIN E.C. 81 MG (ECOTRIN) TAB PO SCH (08:36)
[2020-12-18] MEDS: lisINopril 10 MG (PRINIVIL) TABLET PO SCH (08:36)
[2020-12-18] MEDS: SENNA W/DOCUSATE (SENOKOT S) TABLET PO SCH ×2 (08:36→20:48)
[2020-12-18] MEDS: NICOTINE PATCH REMOVAL TP SCH (08:37)
[2020-12-18] MEDS: NICOTINE 14 MG (NICODERM) PATCH TD SCH (08:37)
--- NOTE | 2020-12-18 08:56 | Physical Therapy Daily Note ---
PT Daily Note-Current Subjective Patient in recliner pre tx, agrees to PT, has no complaints of pain. Appearance Patient in recliner post tx with nurse call, phone, tray, all needs met, chair alarm on. Mental Status Patient Orientation: Person, Place, Situation Transfers SCALE: Activities may be completed with or without assistive devices. 3-Depqbjjdlq-eyzsqfs completes the activity by him/herself with no assistance from a helper. 5-Set-up or Clean-up Assistance-helper sets up or cleans up; patient completes activity. [place] assists only prior to or following the activity. 4-Supervision or Touching Assistance-helper provides verbal cues and/or touching/steadying and/or contact guard assistance as patient completes activity. Assistance may be provided throughout the activity or intermittently. 3-Partial/Moderate Assistance-helper does LESS THAN HALF the effort. [place] lifts, holds or supports trunk or limbs, but provides less than half the effort. 2-Substantial/Maximal Assistance-helper does MORE THAN HALF the effort. [place] lifts or holds trunk or limbs and provides more than half the effort. 3-Yfedtkytg-cjqtlt does ALL the effort. Patient does none of the effort to complete the activity. Or, the assistance of 2 or more helpers is required for the patient to complete the activity. If activity was not attempted, code reason: 7-Patient Refused. 9-Not Applicable-not attempted and the patient did not perform the activity before the current illness, exacerbation or injury. 10-Not Attempted due to Environmental Limitations-(lack of equipment, weather restraints, etc.). 88-Not Attempted due to Medical Conditions or Safety Concerns. Sit to Stand (QC): 3 Chair/Orm-sh-Oymdp Xfer(QC): 3 Gait Training Distance: 40'x2, 20', 50'x2 Walk 10 feet (QC): 3 Walk 50 ft with 2 Turns(QC): 3 Gait Assistive Device: Walker Alec mod assist, cues for unloading left leg to take a step with it, uncoordinated steps, poor balance Wheelchair Training Does the Pt Use a Wheelchair?: Yes Wheel 50 ft with 2 turns (QC): 4 Type of Wheelchair: Manual Exercises NuStep Minutes: 15 NuStep Workload: 4 Treatments transfers, ambulation, functional strengthening Assessment Current Status: Fair Progress Patient is improving with endurance but the quality and assist needed for her ambulation and transfers remains unchanged. She may have reached a plateau for now. PT Short Term Goals Short Term Goals Time Frame: December 18, 2020 Roll Left & Right: 4 Sit to lyin Lying to sitting on side of be: 4 Sit to stand: 3 Chair/iqy-vj-bayqh transfer: 3 Walk 10 feet: 3 Walk 50 feet with two turns: 3 PT [facility] Goals Human Geography Instructor Goals PT Human Geography Instructor Goals Time Frame: Jan 01, 2021 Roll Left & Right (QC): 6 Sit to Lying (QC): 6 Lying-Sitting on Side/Bed(QC): 6 Sit to Stand (QC): 4 Chair/Ppv-ok-Vombe Xfer(QC): 4 Toilet Transfer (QC): 4 Car Transfer (QC): 4 Does the Patient Walk: Yes Walk 10 feet (QC): 4 Walk 50ft with 2 Turns (QC): 4 Walk 150 ft (QC): 88 Walking 10ft on Uneven Surface: 3 1 Step (curb) (QC): 3 4 Steps (QC): 88 12 Steps (QC): 88 Picking up an Object (QC): 88 Wheel 50 feet with 2 turns (QC: 5 Wheel 150 feet: 5 PT Plan Problem List Problem List: Activity Tolerance, Functional Strength, Safety, Balance, Gait, Transfer, Bed Mobility, ROM Treatment/Plan Treatment Plan: Continue Plan of Care Treatment Plan: Bed Mobility, Education, Functional Activity Helene, Functional Strength, Group Therapy, Gait, Safety, Therapeutic Exercise, Transfers Treatment Duration: Jan 01, 2021 Frequency: At least 5 of 7 days/Wk (IRF) Estimated Hrs Per Day: 1.5 hours per day Patient and/or Family Agrees t: Yes Safety Risks/Education Patient Education: Gait Training, Transfer Techniques, Correct Positioning, Safety Issues Teaching Recipient: Patient Teaching Methods: Demonstration, Discussion Response to Teaching: Reinforcement Needed Time/GCodes Time In: 0800 Time Out: 0900 Total Billed Treatment Time: 60 Total Billed Treatment 1 visit EX 15' FA 45' BHARAT THOMAS PT December 18, 2020 08:56
[2020-12-18 10:35] VITALS: BP 123/85
[2020-12-18] MEDS ORDERED: RT-ALBUTEROL/IPRATROPIUM 3 ML (DUONEB) VIAL INH PRN (10:45)
--- NOTE | 2020-12-18 11:17 | Occupational Ther Daily Note ---
OT Current Status-Daily Note Subjective No pain reported. Appearance Pt. in chair. Agrees to work with OT. Mental Status/Objective Patient Orientation: Person, Place, Time ADL-Treatment Therapy Code Descriptions/Definitions Functional [place] Measure: 0=Not Assessed/NA 4=Minimal Assistance 1=Total Assistance 5=Supervision or Setup 2=Maximal Assistance 6=Modified [place] 3=Moderate Assistance 7=Complete IndependenceSCALE: Activities may be completed with or without assistive devices. 5-Ldhuvfabvr-kfiuaxs completes the activity by him/herself with no assistance from a helper. 5-Set-up or Clean-up Assistance-helper sets up or cleans up; patient completes activity. [place] assists only prior to or following the activity. 4-Supervision or Touching Assistance-helper provides verbal cues and/or touching /steadying and/or contact guard assistance as patient completes activity. Assistance may be provided throughout the activity or intermittently. 3-Partial/Moderate Assistance-helper does LESS THAN HALF the effort. [place] lifts, holds or supports trunk or limbs, but provides less than half the effort. 2-Substantial/Maximal Assistance-helper does MORE THAN HALF the effort. [place] lifts or holds trunk or limbs and provides more than half the effort. 5-Pyqidvbjn-qwnroo does ALL the effort. Patient does none of the effort to complete the activity. Or, the assistance of 2 or more helpers is required for the patient to complete the activity. If activity was not attempted, code reason: 7-Patient Refused. 9-Not Applicable-not attempted and the patient did not perform the activity before the current illness, exacerbation or injury. 10-Not Attempted due to Environmental Limitations-(lack of equipment, weather restraints, etc.). 88-Not Attempted due to Medical Conditions or Safety Concerns. Oral Hygiene (QC): 4 (SBA with adapted toothbrush for dentures.) Shower/Bathe Self (QC): 3 (Min assist and increased time for sponge bath. Pt. able to complete most parts seated in wheelchair. Requires min assist for balance in stance while pt. able to cleanse [place] area.) Upper Body Dressing (QC): 3 (Cues and min assist for shirt.) Lower Body Dressing (QC): 3 (Mod assist and increased time in stance to don over hips.) On/Off Footwear: 4 (SBA and increased time.) Toileting Hygiene (QC): 3 Toilet Transfer (QC): 3 Other Treatment Pt. given more opportunity this date for independence by completing sponge bath instead of shower so that she could take her time and attempt to process tasks for herself. Pt. was more successful with being able to reach areas, and complete these tasks with cues and increased time. OT brought in special brush that suctioned to sink for pt. to use with one hand to brush dentures. Pt. was able to do this. After this, pt. self propelled to therapy gym with SBA and practiced standing at bar with CGA. Worked on right hand movement and grasp assist. Propelled back to room and transferred back to chair with Mod assist due to transferring toward weak side. All needs met. Education OT Patient Education: Correct positioning, Modified ADL techniques, Progress toward Goal/Update tx plan, Purpose of tx/functional activities, Reviewed precautions, Rehab process, Transfer techniques, Use of adapted equipment Teaching Recipient: Patient Teaching Methods: Demonstration, Discussion Response to Teaching: Verbalize Understanding, Return Demonstration OT Short Term Goals Short Term Goals Time Frame: Dec 25, 2020 Eatin Oral hygiene: 3 Toileting hygiene: 3 Shower/bathe self: 3 Upper body dressin Lower body dressin Putting on/taking off footwear: 3 OT Half-Way Goals Half-Way Goals Time Frame: Jan 08, 2021 Eating (QC): 6 Oral Hygiene (QC): 5 Toileting Hygiene (QC): 4 Shower/Bathe Self (QC): 4 Upper Body Dressing (QC): 5 Lower Body Dressing (QC): 4 On/Off Footwear (QC): 4 Additional Goals: 1-Demonstrate ADL Tasks, 2-Verbalize Understanding, 3- ImproveStrength/Helene 1=Demonstrate adherence to instructed precautions during ADL tasks. 2=Patient will verbalize/demonstrate understanding of assistive devices/lilia fications for ADL. 3=Patient will improve strength/tolerance for activity to enable patient to perform ADL's. OT Education/Plan Problem List/Assessment Assessment: Decreased Activ Tolerance, Decreased UE Strength, Dependent Transfers, Impaired Bed Mobility, Impaired Coordination, Impaired Funct Balance, Impaired I ADL's, Impaired Self-Care Skills, Restricted Funct UE ROM Discharge Recommendations Plan/Recommendations: Continue POC Therapy Discharge Recommendati: Post Acute OT Treatment Plan/Plan of Care Treatment,Training & Education: Yes Patient would benefit from OT for education, treatment and training to promote independence in ADL's, mobility, safety and/or upper extremity function for ADL's. Plan of Care: ADL Retraining, Functional Mobility, Group Exercise/Act as Ind, UE Funct Exercise/Act Treatment Duration: Jan 08, 2021 Frequency: At least 5 of 7 days/Wk (IRF) Estimated Hrs Per Day: 1.5 hours per day Agreement: Yes Rehab Potential: Good Time/GCodes Start Time: 10:00 Stop Time: 11:15 Total Time Billed (hr/min): 75 Billed Treatment Time 1, ADL x 60minutes, FA x 15minutes MIGUEL CARRIZALES OT December 18, 2020 11:17
[2020-12-18] MEDS ORDERED: LIDOCAINE 1% INJ 20 ML 20 ML VIAL ONE (11:32)
--- NOTE | 2020-12-18 11:47 | Physical Therapy Daily Note ---
PT Daily Note-Current Subjective Patient in recliner pre tx, agrees to PT, has no complaints of pain Appearance Patient in recliner post tx with nurse call, phone, tray, all needs met, chair alarm on Mental Status Patient Orientation: Person, Place, Situation Transfers SCALE: Activities may be completed with or without assistive devices. 6-Vkciszkega-ajunuoa completes the activity by him/herself with no assistance from a helper. 5-Set-up or Clean-up Assistance-helper sets up or cleans up; patient completes activity. [place] assists only prior to or following the activity. 4-Supervision or Touching Assistance-helper provides verbal cues and/or touching/steadying and/or contact guard assistance as patient completes activity. Assistance may be provided throughout the activity or intermittently. 3-Partial/Moderate Assistance-helper does LESS THAN HALF the effort. [place] lifts, holds or supports trunk or limbs, but provides less than half the effort. 2-Substantial/Maximal Assistance-helper does MORE THAN HALF the effort. [place] lifts or holds trunk or limbs and provides more than half the effort. 8-Oixpfrmet-euvvsr does ALL the effort. Patient does none of the effort to complete the activity. Or, the assistance of 2 or more helpers is required for the patient to complete the activity. If activity was not attempted, code reason: 7-Patient Refused. 9-Not Applicable-not attempted and the patient did not perform the activity before the current illness, exacerbation or injury. 10-Not Attempted due to Environmental Limitations-(lack of equipment, weather restraints, etc.). 88-Not Attempted due to Medical Conditions or Safety Concerns. Exercises Seated Therapy Exercises: Ankle pumps, Hip flexion, Hip abd/add (manually resisted) Seated Reps: 20 LAQ alternating for 5 min Treatments LE exercise Assessment Current Status: Poor Progress Patient continues to have uncoordinated movement on the left leg. PT Short Term Goals Short Term Goals Time Frame: December 18, 2020 Roll Left & Right: 4 Sit to lyin Lying to sitting on side of be: 4 Sit to stand: 3 Chair/osf-xt-wjkil transfer: 3 Walk 10 feet: 3 Walk 50 feet with two turns: 3 PT Snf Goals Script Worker Goals PT Script Worker Goals Time Frame: Jan 01, 2021 Roll Left & Right (QC): 6 Sit to Lying (QC): 6 Lying-Sitting on Side/Bed(QC): 6 Sit to Stand (QC): 4 Chair/Bdb-so-Wisvz Xfer(QC): 4 Toilet Transfer (QC): 4 Car Transfer (QC): 4 Does the Patient Walk: Yes Walk 10 feet (QC): 4 Walk 50ft with 2 Turns (QC): 4 Walk 150 ft (QC): 88 Walking 10ft on Uneven Surface: 3 1 Step (curb) (QC): 3 4 Steps (QC): 88 12 Steps (QC): 88 Picking up an Object (QC): 88 Wheel 50 feet with 2 turns (QC: 5 Wheel 150 feet: 5 PT Plan Problem List Problem List: Activity Tolerance, Functional Strength, Safety, Balance, Gait, Transfer, Bed Mobility, ROM Treatment/Plan Treatment Plan: Continue Plan of Care Treatment Plan: Bed Mobility, Education, Functional Activity Helene, Functional Strength, Group Therapy, Gait, Safety, Therapeutic Exercise, Transfers Treatment Duration: Jan 01, 2021 Frequency: At least 5 of 7 days/Wk (IRF) Estimated Hrs Per Day: 1.5 hours per day Patient and/or Family Agrees t: Yes Safety Risks/Education Patient Education: Correct Positioning, Safety Issues Teaching Recipient: Patient Teaching Methods: Demonstration, Discussion Response to Teaching: Reinforcement Needed Time/GCodes Time In: 1130 Time Out: 1145 Total Billed Treatment Time: 15 Total Billed Treatment 1 visit EX BHARAT SOSA PT December 18, 2020 11:47
--- NOTE | 2020-12-18 13:05 | Speech Therapy Daily Note ---
Speech Daily Progress Note Subjective Date Seen by Provider: December 18, 2020 Time Seen by Provider: 00:30 Patient was sitting up in her recliner following her PT session. She was noted to be impulsive with decreased control while sitting in her chair. Objective Patient completed OME at 10 sets x3 with minimal verbal and visual cuing. Patient's speech and oral intake continue to improve. Assessment Assessment Current Status: Good Progress Treatment Plan Continue Plan of Care Speech Short Term Goals Short Term Goals Short Term Goals 1) Patient will complete safety awareness tasks related to her daily needs at 80% or greater with minimal cues. 2) Patient will complete speech tasks at 80% or greater with minimal cues. 3) Patient will complete safe oral intake at 90% or greater with least restrictive diet. 4) Patient will utilize compensatory strategies for safe intake at 90% or greater. Speech Project Production Engineer Goals Project Production Engineer Goals Patient will improve cognitive-communication abilities in order to complete daily living tasks with minimal assist. Patient will maintain adequate nutrition/hydration via safe effective swallow function. Speech-Plan Patient/Family Goals Patient/Family Goals: Patient plans on returning to her apartment. She will be receiving another week of skilled therapies with continued improvement anticipated. Treatment Plan Speech Therapy Treatment Plan: Continue Plan of Care Treatment Duration: Dec 26, 2020 Frequency: 4 times per week (Patient will receive skilled ST 4-5x per week) Estimated Hrs Per Day: .5 hour per day Rehab Potential: Good Barriers to Learning: Patient's recent CVA with debility as well as age Pt/Family Agrees to Plan: Yes Safety Risks/Education Safety Risk Comments: Patient's impulsivity and need for 2 people assist for daily needs Teaching Recipient: Patient Teaching Methods: Discussion Response to Teaching: Verbalize Understanding Education Topics Provided: Continued safety awareness within her room, utilization of call light for assistance with all needs, continued safety strategies for all intake Time Speech Therapy Time In: 09:30 Speech Therapy Time Out: 10:00 Total Billed Time: 30 Billed Treatment Time 1BENNY SLTS No WHORTON, BETHANIA ST December 18, 2020 13:05
[2020-12-18] MEDS: ENOXAPARIN 40 MG/0.4 ML (LOVENOX) SYR SC SCH (13:39)
--- NOTE | 2020-12-18 17:32 | Podiatry Progress Note ---
Standard Progress Note Progress Notes/Assess & Plan Date Seen by a Provider: December 18, 2020 Time Seen by a Provider: 17:31 Progress/Assessment & Plan Consultation dictated. Foot care given. Follow up in office as needed. Final Diagnosis Onychomycosis, Hammertoes, left side weakness DENIS MUNGUIA DPM December 18, 2020 17:32
[2020-12-18] MEDS: polyethylene glycoL POWDER 17 GM (MIRALAX) PACK PO SCH (19:57)
[2020-12-18 20:00] VITALS: BP 97/98
[2020-12-18] MEDS: MELATONIN 3 MG TABLET PO SCH (20:48)
--- NOTE | 2020-12-18 21:57 | CONSULTATION REPORT ---
DATE OF SERVICE: 12/18/2020 REASON FOR CONSULTATION: Foot care. HISTORY OF PRESENT ILLNESS: This 75-year-old female is recovering from cerebrovascular accident affecting the left side. She is unable to reach to care for her feet. She is complaining of toenails with shoe gear and ambulation. She expects to be discharged to a group home facility sometime next week. She is in the process of smoking cessation. PAST MEDICAL HISTORY: Bladder surgery, hysterectomy, cerebrovascular accident dated 12/05/2020, arthritis, breast cancer which required radiation and surgical intervention. ALLERGIES: SHE IS ALLERGIC TO SULFA. CURRENT MEDICATIONS: Listed on the patient's chart. PHYSICAL EXAMINATION: LOWER EXTREMITY: The patient has 2/4 dorsalis pedis pulse, 2/4 posterior tibial pulse bilaterally. Cap refill time is less than 3 seconds. NEUROLOGIC: The patient has intact protective sensation with 10 gram monofilament wire examination. Diminished vibratory sensation, left seems to be worse than right. Deep tendon reflexes are also diminished to the Achilles tendon bilaterally. DERMATOLOGIC: The patient has thick yellow dystrophic toenail with subungual debris associated with R1, 2, 3, L3 digits. Skin turgor is within normal limits. No open lesions identified bilaterally. MUSCULOSKELETAL FINDINGS: The patient has contracted toes 2 through 5 on the right. She has 4/5 muscle strength to the four major quadrants of the foot on the right and 3/5 muscle strength to the four major quadrants of the foot on the left. ASSESSMENT: 1. History of cerebrovascular accident affecting the left side. 2. Onychomycosis. 3. Idiopathic neuropathy. PLAN: Various treatment options were discussed with the patient today. Her toenails were debrided manually, mechanically. Betadine applied associated with the R1, 2, 3 and L3 digits. We discussed appropriate shoe gear and fit. Recommend extra depth shoes, especially in regard to the right foot. She will continue with physical therapy here in the hospital as well as upon discharge to the [facility]. I will see the patient back in the office as necessary. Job ID: [id number] DocumentID: [id number] Dictated Date: 12/18/2020 17:52:45 Sales Correspondence Clerk Date: 12/18/2020 20:17:03 Dictated By: SAHRA CHIANG
[2020-12-19] MEDS: MULTIVIT W/MINERALS TAB (THERAGRAN M) PO SCH (06:27)
[2020-12-19] MEDS: CYANOCOBALAMIN 1,000 MCG (VITAMIN B-12) TABLET PO SCH (06:27)
--- NOTE | 2020-12-19 06:40 | PM&R Progress Note ---
Subjective HPI/CC On Admission Date Seen by Provider: December 19, 2020 Time Seen by Provider: 10:00 Subjective/Events-last exam 12/19/20: Pt doing pretty well BP a bit low so will DC Lisinopril per cardiology Bowels moved two days ago Overall feels really good 12/18/20: Patient doing well Plateaued in PT Needs NHP 12/17/20: Pt doing pretty well Still requiring a bedside commode and two people assist DC telemetry Bowels are moving okay Softer stools noted 12/16/20: Pt doing really well Telemetry noted, HR of 30s but on assessment it was 78 Decreasing BP medications Bowels moved yesterday 12/15/20: Pt doing pretty well Had a BM yesterday but it was hard Had a bloody nose so I will start nasal spray Overall no major concerns 12/14/20: Patient denies any issues No pain reported BM+ 12/13/20: Patient doing well Having some abdominal cramps from laxatives No other issues reported Tearful at times Doing well with thin liquids 12/12/20: Pt doing okay but a little bit tired Decreased stamina from the stroke No BM so laxatives will be given, this is the third day without a BM 12/11/20: Pt settling in well today Doing very well Taking pills okay Feeds herself Flaccidity on the left side noted Bowels moved two days ago Review of Systems General: Fatigue Neurological: Weakness, Incoordination Objective Exam Vital Signs Vital Signs Date Time Temp Pulse Resp B/P (MAP) Pulse Ox O2 Delivery O2 Flow Rate FiO2 12/19/20 20:10 Room Air 12/19/20 19:29 36.6 85 20 119/55 (76) 94 Capillary Refill : General Appearance: No Apparent Distress, WD/WN, Chronically ill, Thin HEENT: PERRL/EOMI, Normal ENT Inspection, Pharynx Normal Neck: Full Range of Motion, Normal Inspection, Non Tender, Supple, Carotid Bruit Respiratory: Chest Non Tender, Lungs Clear, Normal Breath Sounds, No Accessory Muscle Use, No Respiratory Distress Cardiovascular: Regular Rate, Rhythm, No Edema, No Gallop, No JVD, No Murmur, Normal Peripheral Pulses Gastrointestinal: Normal Bowel Sounds, No Organomegaly, No Pulsatile Mass, Non Tender, Soft Back: Normal Inspection, No CVA Tenderness, No Vertebral Tenderness Extremity: Normal Capillary Refill, Normal Inspection, Normal Range of Motion, Non Tender, No Calf Tenderness, No Pedal Edema Neurologic/Psychiatric: Alert, Oriented x3, Abnormal Gait, Aphasia, Depressed Affect, Facial Droop, Motor Weakness (left sided flaccidity) Skin: Normal Color, Warm/Dry Lymphatic: No Adenopathy Results/Procedures Lab Patient resulted labs reviewed. FIM Transfers Therapy Code Descriptions/Definitions Functional [place] Measure: 0=Not Assessed/NA 4=Minimal Assistance 1=Total Assistance 5=Supervision or Setup 2=Maximal Assistance 6=Modified [place] 3=Moderate Assistance 7=Complete IndependenceSCALE: Activities may be completed with or without assistive devices. 0-Tytxirdegy-tddezeo completes the activity by him/herself with no assistance from a helper. 5-Set-up or Clean-up Assistance-helper sets up or cleans up; patient completes activity. [place] assists only prior to or following the activity. 4-Supervision or Touching Assistance-helper provides verbal cues and/or touching/steadying and/or contact guard assistance as patient completes activity. Assistance may be provided throughout the activity or intermittently. 3-Partial/Moderate Assistance-helper does LESS THAN HALF the effort. [place] lifts, holds or supports trunk or limbs, but provides less than half the effort. 2-Substantial/Maximal Assistance-helper does MORE THAN HALF the effort. [place] lifts or holds trunk or limbs and provides more than half the effort. 5-Vjpjkdfni-uzsmyn does ALL the effort. Patient does none of the effort to complete the activity. Or, the assistance of 2 or more helpers is required for the patient to complete the activity. If activity was not attempted, code reason: 7-Patient Refused. 9-Not Applicable-not attempted and the patient did not perform the activity before the current illness, exacerbation or injury. 10-Not Attempted due to Environmental Limitations-(lack of equipment, weather restraints, etc.). 88-Not Attempted due to Medical Conditions or Safety Concerns. Roll Left to Right (QC): 4 Sit to Lying (QC): 5 Sit to Stand (QC): 3 Chair/Cko-ip-Stegk Xfer(QC): 3 Car Transfer (QC): 3 Gait Training Does the Patient Walk?: Yes Distance: 40'x2, 20', 50'x2 Walk 10 feet (QC): 3 Walk 50 ft with 2 Turns(QC): 3 Walk 150 ft (QC): 88 Walking 10ft/uneven surface-QC: 88 Gait Persons Needed: 2 Gait Assistive Device: Walker Alec Wheelchair Training Does the Pt Use a Wheelchair?: Yes Distance: 50' Wheel 50 ft with 2 turns (QC): 4 Wheel 150 ft (QC): 88 Type of Wheelchair: Manual Stair Training 1 Step (curb) (QC): 88 4 Steps (QC): 88 12 Steps (QC): 88 Balance Picking up an Object (QC): 88 ADL-Treatment Eating (QC): 5 Oral Hygiene (QC): 4 (SBA with adapted toothbrush for dentures.) Bathing Location: L Arm, R Arm, L Upper Leg, R Upper Leg, Chest, Abdomen, Buttocks, Perineal Area Shower/Bathe Self (QC): 3 (Min assist and increased time for sponge bath. Pt. able to complete most parts seated in wheelchair. Requires min assist for balance in stance while pt. 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 HTN HLP h/o breast cancer Smoker s/p loop recorder 12/18/20 Plan: Aggressive rehab Walker with platform Monitor closely 12/11/20: Monitor BP Cardiology consultation 12/12/20: BM regimen Fall risk 12/13/20: Monitor O2 BP management Cardiology appreciated 12/14/20: Improved status Monitor closely 12/15/20: Monitor closely BP monitored 12/16/20: Monitor BP Monitor Tely 12/17/20: Monitor closely Recheck next week 12/18/20: Monitor closely BP monitor Loop recorder 12/19/20: NHP will be needed Monitor BP (1) Acute CVA (cerebrovascular accident) Status: Acute (2) HTN (hypertension) Status: Acute (3) HLD (hyperlipidemia) Status: Acute MOHIT BOYKIN DO December 19, 2020 06:40
[2020-12-19] MEDS: SENNA W/DOCUSATE (SENOKOT S) TABLET PO SCH ×2 (07:35→21:18)
[2020-12-19] MEDS: CALCIUM CARBONATE 600 MG (CALCARB) TAB PO SCH (07:35)
[2020-12-19] MEDS: ASPIRIN E.C. 81 MG (ECOTRIN) TAB PO SCH (07:35)
[2020-12-19] MEDS: NICOTINE PATCH REMOVAL TP SCH (07:36)
[2020-12-19] MEDS: NICOTINE 14 MG (NICODERM) PATCH TD SCH (07:36)
[2020-12-19] MEDS: NYSTATIN ORAL SUSP 5 ML UDC PO SCH ×4 (07:36→21:18)
[2020-12-19] MEDS: DOCUSATE SODIUM 100 MG (COLACE) CAP PO SCH ×2 (07:36→21:18)
[2020-12-19 08:00] VITALS: BP 98/53
--- NOTE | 2020-12-19 09:41 | Cardiology Progress Note ---
Subjective Date Seen by Provider: December 19, 2020 Time Seen by Provider: 09:41 Subjective/Events-last exam Patient was seen at bedside, sitting comfortably, no new complaint, borderline hypotension Review of Systems General: No Chills, No Night Sweats, No Fatigue, No Malaise, No Appetite, No Other HEENT: No Head Aches, No Visual Changes, No Eye Pain, No Ear Pain, No Dysphasia, No Sinus Congestion, No Post Nasal Drip, No Sore Throat, No Other Pulmonary: No Dyspnea, No Cough, No Pleuritic Chest Pain, No Other Cardiovascular: No: Chest Pain, Palpitations, Orthopnea, Paroxysmal Noc. Dyspnea, Edema, Lt Headedness, Other Objective-Cardiology Exam Last Set of Vital Signs Vital Signs 12/18/20 12/18/20 20:00 20:15 Temp 36.4 Pulse 83 Resp 16 B/P (MAP) 97/98 (98) Pulse Ox 95 O2 Delivery Room Air Capillary Refill : General: Alert, Oriented X3, Cooperative HEENT: Atraumatic, PERRLA Neck: Supple, No JVD Lungs: Clear to Auscultation, Normal Air Movement Heart: Regular Rate, Normal S1, Normal S2 Abdomen: Normal Bowel Sounds, Soft Extremities: No Clubbing, No Cyanosis Skin: No Rashes Neuro: Normal Gait, Normal Speech A/P-Cardiology Admission Diagnosis Cryptogenic stroke HTN HLD Assessment/Plan Cryptogenic stroke - MRI showed posterior R frontal lobe stroke possibly in splenium of corpus collosum; telemetry showing no atrial fibrillation. Planning for LINq implantation later today. Hypertension, currently borderline hypotension, has been on lisinopril 10 mg daily, I will discontinue it and monitor blood pressure Hyperlipidemia started on Lipitor. Monitor lipids General debility/weakness - PT/OT with IRF, lovenox for DVT prophylaxis History of breast cancer. In remission Tobaccoism, educated on smoking cessation DOROTHY RIVERA MD December 19, 2020 09:41
--- NOTE | 2020-12-19 09:45 | Speech Therapy Daily Note ---
Speech Daily Progress Note Subjective Date Seen by Provider: December 19, 2020 Time Seen by Provider: 00:30 Patient was resting in her recliner. She reported she had her surgery yesterday for her heart monitor. Objective Patient completed a series of "what's missing?" with 90% accuracy given minimal cues. Assessment Assessment Current Status: Good Progress Treatment Plan Continue Plan of Care Speech Short Term Goals Short Term Goals Short Term Goals 1) Patient will complete safety awareness tasks related to her daily needs at 80% or greater with minimal cues. 2) Patient will complete speech tasks at 80% or greater with minimal cues. 3) Patient will complete safe oral intake at 90% or greater with least restrictive diet. 4) Patient will utilize compensatory strategies for safe intake at 90% or greater. Speech Strategic Manager Goals Skilled Nursing Goals Patient will improve cognitive-communication abilities in order to complete d aily living tasks with minimal assist. Patient will maintain adequate nutrition/hydration via safe effective swallow function. Speech-Plan Patient/Family Goals Patient/Family Goals: Patient plans on retuning to her apartment, however at this time she is unable to care for herself. Treatment Plan Speech Therapy Treatment Plan: Continue Plan of Care Treatment Duration: Dec 26, 2020 Frequency: 4 times per week (Patient will receive skilled ST 4-5x per week) Estimated Hrs Per Day: .5 hour per day Rehab Potential: Good Barriers to Learning: Patient's recent CVA with debility, age Pt/Family Agrees to Plan: Yes Safety Risks/Education Teaching Recipient: Patient Teaching Methods: Demonstration, Discussion Response to Teaching: Verbalize Understanding, Return Demonstration Education Topics Provided: Patient's safety within her room Time Speech Therapy Time In: 09:30 Speech Therapy Time Out: 10:00 Total Billed Time: 30 Billed Treatment Time 1, ARNULFO Mohamud December 19, 2020 09:45
--- NOTE | 2020-12-19 11:21 | Physical Therapy Daily Note ---
PT Daily Note-Current Subjective Patient in recliner pre tx, agrees to PT, has no complaints of pain. Will co- treat with OT for some balance training, and due to poor patient mobility, strength, endurance, balance, left hemiparesis, coordinate UE and LE during activity, safety and reduced risk of falls. Appearance Patient in recliner post tx with nurse call, phone, tray, all needs met. Chair alarm on. Mental Status Patient Orientation: Person, Place, Situation Transfers SCALE: Activities may be completed with or without assistive devices. 4-Bhubokdbji-izndntg completes the activity by him/herself with no assistance from a helper. 5-Set-up or Clean-up Assistance-helper sets up or cleans up; patient completes activity. [place] assists only prior to or following the activity. 4-Supervision or Touching Assistance-helper provides verbal cues and/or touching/steadying and/or contact guard assistance as patient completes activity. Assistance may be provided throughout the activity or intermittently. 3-Partial/Moderate Assistance-helper does LESS THAN HALF the effort. [place] lifts, holds or supports trunk or limbs, but provides less than half the effort. 2-Substantial/Maximal Assistance-helper does MORE THAN HALF the effort. [place] lifts or holds trunk or limbs and provides more than half the effort. 6-Jhumhesxk-ynltlt does ALL the effort. Patient does none of the effort to complete the activity. Or, the assistance of 2 or more helpers is required for the patient to complete the activity. If activity was not attempted, code reason: 7-Patient Refused. 9-Not Applicable-not attempted and the patient did not perform the activity befo re the current illness, exacerbation or injury. 10-Not Attempted due to Environmental Limitations-(lack of equipment, weather re straints, etc.). 88-Not Attempted due to Medical Conditions or Safety Concerns. Sit to Lying (QC): 3 Lying to Sitting/Side of Bed(Q: 3 Sit to Stand (QC): 3 Chair/Ieb-yt-Mxsip Xfer(QC): 3 Min assist for supine <-> sit and sit to stand and transfers, occasional cues for hand placement mostly when sitting Gait Training Distance: 75'x4, 20' Walk 10 feet (QC): 3 Walk 50 ft with 2 Turns(QC): 3 Gait Assistive Device: Walker Alec improved balance and weight shifting, min assist Exercises Supine Ex: Ankle pumps, Quad Set, Glut sets, Heel Slides (AAROM), Short Arc Quads, Straight leg raise (AAROM), Hip abd/add Supine Reps: 20 (LLE) Practiced balance training in parallel bars reaching and simulated pants don/doff NuStep Minutes: 15 NuStep Workload: 4 Treatments PT performed bed mobility and transfer training, ambulation, LE exercise, balanc e training cotreat, OT worked on balance training, UE positioning and safety during activity Assessment Current Status: Fair Progress slightly improved balance during ambulation but still needs assist PT Short Term Goals Short Term Goals Time Frame: December 18, 2020 Roll Left & Right: 4 Sit to lyin Lying to sitting on side of be: 4 Sit to stand: 3 Chair/moe-lz-inuxw transfer: 3 Walk 10 feet: 3 Walk 50 feet with two turns: 3 PT Mcc Goals Mcc Goals PT Mcc Goals Time Frame: Jan 01, 2021 Roll Left & Right (QC): 6 Sit to Lying (QC): 6 Lying-Sitting on Side/Bed(QC): 6 Sit to Stand (QC): 4 Chair/Mjv-is-Rvyrj Xfer(QC): 4 Toilet Transfer (QC): 4 Car Transfer (QC): 4 Does the Patient Walk: Yes Walk 10 feet (QC): 4 Walk 50ft with 2 Turns (QC): 4 Walk 150 ft (QC): 88 Walking 10ft on Uneven Surface: 3 1 Step (curb) (QC): 3 4 Steps (QC): 88 12 Steps (QC): 88 Picking up an Object (QC): 88 Wheel 50 feet with 2 turns (QC: 5 Wheel 150 feet: 5 PT Plan Problem List Problem List: Activity Tolerance, Functional Strength, Safety, Balance, Gait, Transfer, Bed Mobility, ROM Treatment/Plan Treatment Plan: Continue Plan of Care Treatment Plan: Bed Mobility, Education, Functional Activity Helene, Functional Strength, Group Therapy, Gait, Safety, Therapeutic Exercise, Transfers Treatment Duration: Jan 01, 2021 Frequency: At least 5 of 7 days/Wk (IRF) Estimated Hrs Per Day: 1.5 hours per day Patient and/or Family Agrees t: Yes Safety Risks/Education Patient Education: Gait Training, Transfer Techniques, Correct Positioning, Safety Issues Teaching Recipient: Patient Teaching Methods: Demonstration, Discussion Response to Teaching: Reinforcement Needed Time/GCodes Time In: 1000 Time Out: 1115 Total Billed Treatment Time: 75 Total Billed Treatment 1 visit GT 30' NM 30' EX 15' co-treat for 30 min with OT from [id number] BHARAT THOMAS PT December 19, 2020 11:21
--- NOTE | 2020-12-19 11:30 | Occupational Ther Daily Note ---
OT Current Status-Daily Note Subjective No pain reported. Mental Status/Objective Patient Orientation: Person, Place, Time, Situation ADL-Treatment Therapy Code Descriptions/Definitions Functional [place] Measure: 0=Not Assessed/NA 4=Minimal Assistance 1=Total Assistance 5=Supervision or Setup 2=Maximal Assistance 6=Modified [place] 3=Moderate Assistance 7=Complete IndependenceSCALE: Activities may be completed with or without assistive devices. 2-Cxatmkhjhx-wzmlqxe completes the activity by him/herself with no assistance from a helper. 5-Set-up or Clean-up Assistance-helper sets up or cleans up; patient completes activity. [place] assists only prior to or following the activity. 4-Supervision or Touching Assistance-helper provides verbal cues and/or touching/steadying and/or contact guard assistance as patient completes activity. Assistance may be provided throughout the activity or intermittently. 3-Partial/Moderate Assistance-helper does LESS THAN HALF the effort. [place] lifts, holds or supports trunk or limbs, but provides less than half the effort. 2-Substantial/Maximal Assistance-helper does MORE THAN HALF the effort. [place] lifts or holds trunk or limbs and provides more than half the effort. 0-Qwjgqiowp-ssksqu does ALL the effort. Patient does none of the effort to complete the activity. Or, the assistance of 2 or more helpers is required for the patient to complete the activity. If activity was not attempted, code reason: 7-Patient Refused. 9-Not Applicable-not attempted and the patient did not perform the activity before the current illness, exacerbation or injury. 10-Not Attempted due to Environmental Limitations-(lack of equipment, weather restraints, etc.). 88-Not Attempted due to Medical Conditions or Safety Concerns. Other Treatment Pt. up in chair. Pt. agrees to work with OT. She stands from chair with min assist, and is able to transfer to wheelchair with min assist by reaching toward right side. OT assists pt. with brushing hair, and pt. self propels to therapy gym. Pt. completes bilateral coordination task with reaching for cones, with hands clasped together. Pt. able to engage left UE and facilitate grasp on cone. Noted increased strength overall. Pt. also engaged in reaching task with left UE for cone in all planes. Noted pt. only able to flex left shoulder to a pproximately 90 degrees. Stood at tabletop 3 times and worked on weight bearing through left UE for re-enforcement of joints. Pt. tolerated well and was able to stand and maintain stance with min assist. Pt. self propelled back with SBA. Transferred to recliner with SBA. All needs met. Education OT Patient Education: Correct positioning, Exercise program, Modified ADL techniques, Progress toward Goal/Update tx plan, Purpose of tx/functional activities, Reviewed precautions, Rehab process, Transfer techniques OT Short Term Goals Short Term Goals Time Frame: Dec 25, 2020 Eatin Oral hygiene: 3 Toileting hygiene: 3 Shower/bathe self: 3 Upper body dressin Lower body dressin Putting on/taking off footwear: 3 OT [facility] Goals [facility] Goals Time Frame: Jan 08, 2021 Eating (QC): 6 Oral Hygiene (QC): 5 Toileting Hygiene (QC): 4 Shower/Bathe Self (QC): 4 Upper Body Dressing (QC): 5 Lower Body Dressing (QC): 4 On/Off Footwear (QC): 4 Additional Goals: 1-Demonstrate ADL Tasks, 2-Verbalize Understanding, 3- ImproveStrength/Helene 1=Demonstrate adherence to instructed precautions during ADL tasks. 2=Patient will verbalize/demonstrate understanding of assistive devices/modifications for ADL. 3=Patient will improve strength/tolerance for activity to enable patient to perform ADL's. OT Education/Plan Problem List/Assessment Assessment: Decreased Activ Tolerance, Impaired I ADL's, Impaired Self-Care Skills Discharge Recommendations Plan/Recommendations: Continue POC Treatment Plan/Plan of Care Treatment,Training & Education: Yes Patient would benefit from OT for education, treatment and training to promote independence in ADL's, mobility, safety and/or upper extremity function for ADL's. Plan of Care: ADL Retraining, Functional Mobility, Group Exercise/Act as Ind, UE Funct Exercise/Act Treatment Duration: Jan 08, 2021 Frequency: At least 5 of 7 days/Wk (IRF) Estimated Hrs Per Day: 1.5 hours per day Agreement: Yes Rehab Potential: Good Time/GCodes Start Time: 08:15 Stop Time: 09:00 Total Time Billed (hr/min): 45 Billed Treatment Time 1, FA x 45minutes MIGUEL CARRIZALES OT December 19, 2020 11:30
--- NOTE | 2020-12-19 11:56 | Occupational Ther Daily Note ---
OT Current Status-Daily Note Subjective No pain reported. Mental Status/Objective Patient Orientation: Person, Place, Time, Situation ADL-Treatment Therapy Code Descriptions/Definitions Functional [place] Measure: 0=Not Assessed/NA 4=Minimal Assistance 1=Total Assistance 5=Supervision or Setup 2=Maximal Assistance 6=Modified [place] 3=Moderate Assistance 7=Complete IndependenceSCALE: Activities may be completed with or without assistive devices. 7-Tslbyetqpw-tytnvll completes the activity by him/herself with no assistance from a helper. 5-Set-up or Clean-up Assistance-helper sets up or cleans up; patient completes activity. [place] assists only prior to or following the activity. 4-Supervision or Touching Assistance-helper provides verbal cues and/or touching/steadying and/or contact guard assistance as patient completes activity. Assistance may be provided throughout the activity or intermittently. 3-Partial/Moderate Assistance-helper does LESS THAN HALF the effort. [place] lifts, holds or supports trunk or limbs, but provides less than half the effort. 2-Substantial/Maximal Assistance-helper does MORE THAN HALF the effort. [place] lifts or holds trunk or limbs and provides more than half the effort. 6-Eadfxwajm-ggdjlu does ALL the effort. Patient does none of the effort to complete the activity. Or, the assistance of 2 or more helpers is required for the patient to complete the activity. If activity was not attempted, code reason: 7-Patient Refused. 9-Not Applicable-not attempted and the patient did not perform the activity before the current illness, exacerbation or injury. 10-Not Attempted due to Environmental Limitations-(lack of equipment, weather restraints, etc.). 88-Not Attempted due to Medical Conditions or Safety Concerns. Other Treatment Pt. seen for co-treatment with PT/OT due to skilled need of 2 clinicians for functional dynamic standing balance. Pt. practices standing in parallel bars. Stood with min assist with PT facilitated balance, weight shifts, and LE strength. OT facilitated UE reach, and dynamic shift to simulate pt. having to pull up/down pants and perform basic ADL skills in stance. Pt. has improved in overall functional skills. Tolerated treatment well. Pt. ambulated with gucci cane back to room, with min x 2 and several rest breaks along way. Please see PT note for distance ambulated. Education OT Patient Education: Correct positioning, Exercise program, Modified ADL techniques, Progress toward Goal/Update tx plan, Purpose of tx/functional activities, Reviewed precautions, Rehab process, Transfer techniques Teaching Recipient: Patient Teaching Methods: Demonstration, Discussion Response to Teaching: Verbalize Understanding, Return Demonstration OT Short Term Goals Short Term Goals Time Frame: Dec 25, 2020 Eatin Oral hygiene: 3 Toileting hygiene: 3 Shower/bathe self: 3 Upper body dressin Lower body dressin Putting on/taking off footwear: 3 OT Social Media Content Manager Goals Social Media Content Manager Goals Time Frame: Jan 08, 2021 Eating (QC): 6 Oral Hygiene (QC): 5 Toileting Hygiene (QC): 4 Shower/Bathe Self (QC): 4 Upper Body Dressing (QC): 5 Lower Body Dressing (QC): 4 On/Off Footwear (QC): 4 Additional Goals: 1-Demonstrate ADL Tasks, 2-Verbalize Understanding, 3- ImproveStrength/Helene 1=Demonstrate adherence to instructed precautions during ADL tasks. 2=Patient will verbalize/demonstrate understanding of assistive devices/modifications for ADL. 3=Patient will improve strength/tolerance for activity to enable patient to perform ADL's. OT Education/Plan Problem List/Assessment Assessment: Decreased Activ Tolerance, Impaired I ADL's, Impaired Self-Care Skills Discharge Recommendations Plan/Recommendations: Continue POC Treatment Plan/Plan of Care Treatment,Training & Education: Yes Patient would benefit from OT for education, treatment and training to promote independence in ADL's, mobility, safety and/or upper extremity function for ADL's. Plan of Care: ADL Retraining, Functional Mobility, Group Exercise/Act as Ind, UE Funct Exercise/Act Treatment Duration: Jan 08, 2021 Frequency: At least 5 of 7 days/Wk (IRF) Estimated Hrs Per Day: 1.5 hours per day Agreement: Yes Rehab Potential: Good Time/GCodes Start Time: 10:40 Stop Time: 11:10 Total Time Billed (hr/min): 30 Billed Treatment Time 1, FA x 30minutes- Co-treatment with PT MIGUEL CARRIZALES OT December 19, 2020 11:56
[2020-12-19] MEDS: ENOXAPARIN 40 MG/0.4 ML (LOVENOX) SYR SC SCH (12:15)
[2020-12-19 19:29] VITALS: BP 119/55
[2020-12-19] MEDS: MELATONIN 3 MG TABLET PO SCH (21:18)
[2020-12-19] MEDS: polyethylene glycoL POWDER 17 GM (MIRALAX) PACK PO SCH (21:24)
[2020-12-20] MEDS: MULTIVIT W/MINERALS TAB (THERAGRAN M) PO SCH (06:57)
[2020-12-20] MEDS: CYANOCOBALAMIN 1,000 MCG (VITAMIN B-12) TABLET PO SCH (06:57)
[2020-12-20 08:07] VITALS: BP 122/57
--- NOTE | 2020-12-20 08:07 | PM&R Progress Note ---
Subjective HPI/CC On Admission Date Seen by Provider: December 20, 2020 Time Seen by Provider: 13:00 Subjective/Events-last exam 12/20/2020: No major issues today Has some allergies so we will start Claritin No falls Continues to work with therapy 12/19/20: Pt doing pretty well BP a bit low so will DC Lisinopril per cardiology Bowels moved two days ago Overall feels really good 12/18/20: Patient doing well Plateaued in PT Needs NHP 12/17/20: Pt doing pretty well Still requiring a bedside commode and two people assist DC telemetry Bowels are moving okay Softer stools noted 12/16/20: Pt doing really well Telemetry noted, HR of 30s but on assessment it was 78 Decreasing BP medications Bowels moved yesterday 12/15/20: Pt doing pretty well Had a BM yesterday but it was hard Had a bloody nose so I will start nasal spray Overall no major concerns 12/14/20: Patient denies any issues No pain reported BM+ 12/13/20: Patient doing well Having some abdominal cramps from laxatives No other issues reported Tearful at times Doing well with thin liquids 12/12/20: Pt doing okay but a little bit tired Decreased stamina from the stroke No BM so laxatives will be given, this is the third day without a BM 12/11/20: Pt settling in well today Doing very well Taking pills okay Feeds herself Flaccidity on the left side noted Bowels moved two days ago Review of Systems General: Fatigue, Malaise Neurological: Weakness, Incoordination Objective Exam Vital Signs Vital Signs Date Time Temp Pulse Resp B/P (MAP) Pulse Ox O2 Delivery O2 Flow Rate FiO2 12/20/20 09:00 Room Air 12/20/20 08:07 36.4 70 18 122/57 (78) 94 Capillary Refill : General Appearance: No Apparent Distress, WD/WN, Chronically ill, Thin HEENT: PERRL/EOMI, Normal ENT Inspection, Pharynx Normal Neck: Full Range of Motion, Normal Inspection, Non Tender, Supple, Carotid Bruit Respiratory: Chest Non Tender, Lungs Clear, Normal Breath Sounds, No Accessory Muscle Use, No Respiratory Distress Cardiovascular: Regular Rate, Rhythm, No Edema, No Gallop, No JVD, No Murmur, Normal Peripheral Pulses Gastrointestinal: Normal Bowel Sounds, No Organomegaly, No Pulsatile Mass, Non Tender, Soft Back: Normal Inspection, No CVA Tenderness, No Vertebral Tenderness Extremity: Normal Capillary Refill, Normal Inspection, Normal Range of Motion, Non Tender, No Calf Tenderness, No Pedal Edema Neurologic/Psychiatric: Alert, Oriented x3, Abnormal Gait, Aphasia, Depressed Affect, Facial Droop, Motor Weakness (left sided flaccidity) Skin: Normal Color, Warm/Dry Lymphatic: No Adenopathy Results/Procedures Lab Patient resulted labs reviewed. FIM Transfers Therapy Code Descriptions/Definitions Functional [place] Measure: 0=Not Assessed/NA 4=Minimal Assistance 1=Total Assistance 5=Supervision or Setup 2=Maximal Assistance 6=Modified [place] 3=Moderate Assistance 7=Complete IndependenceSCALE: Activities may be completed with or without assistive devices. 0-Wimxghpzet-xgzvdbc completes the activity by him/herself with no assistance from a helper. 5-Set-up or Clean-up Assistance-helper sets up or cleans up; patient completes activity. [place] assists only prior to or following the activity. 4-Supervision or Touching Assistance-helper provides verbal cues and/or touching/steadying and/or contact guard assistance as patient completes activity. Assistance may be provided throughout the activity or intermittently. 3-Partial/Moderate Assistance-helper does LESS THAN HALF the effort. [place] lifts, holds or supports trunk or limbs, but provides less than half the effort. 2-Substantial/Maximal Assistance-helper does MORE THAN HALF the effort. [place] lifts or holds trunk or limbs and provides more than half the effort. 1-Xosluovgl-dworgf does ALL the effort. Patient does none of the effort to complete the activity. Or, the assistance of 2 or more helpers is required for the patient to complete the activity. If activity was not attempted, code reason: 7-Patient Refused. 9-Not Applicable-not attempted and the patient did not perform the activity before the current illness, exacerbation or injury. 10-Not Attempted due to Environmental Limitations-(lack of equipment, weather restraints, etc.). 88-Not Attempted due to Medical Conditions or Safety Concerns. Roll Left to Right (QC): 4 Sit to Lying (QC): 3 Sit to Stand (QC): 3 Chair/Xpt-dp-Libye Xfer(QC): 3 Car Transfer (QC): 3 Gait Training Does the Patient Walk?: Yes Distance: 75'x4, 20' Walk 10 feet (QC): 3 Walk 50 ft with 2 Turns(QC): 3 Walk 150 ft (QC): 88 Walking 10ft/uneven surface-QC: 88 Gait Persons Needed: 2 Gait Assistive Device: Walker Alec Wheelchair Training Does the Pt Use a Wheelchair?: Yes Distance: 50' Wheel 50 ft with 2 turns (QC): 4 Wheel 150 ft (QC): 88 Type of Wheelchair: Manual Stair Training 1 Step (curb) (QC): 88 4 Steps (QC): 88 12 Steps (QC): 88 Balance Picking up an Object (QC): 88 ADL-Treatment Eating (QC): 5 Oral Hygiene (QC): 4 (SBA with adapted toothbrush for dentures.) Bathing Location: L Arm, R Arm, L Upper Leg, R Upper Leg, Chest, Abdomen, Buttocks, Perineal Area Shower/Bathe Self (QC): 3 (Min assist and increased time for sponge bath. Pt. able to complete most parts seated in wheelchair. Requires min assist for balance in stance while pt. 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 HTN HLP h/o breast cancer Smoker s/p loop recorder 12/18/20 Plan: Aggressive rehab Walker with platform Monitor closely 12/11/20: Monitor BP Cardiology consultation 12/12/20: BM regimen Fall risk 12/13/20: Monitor O2 BP management Cardiology appreciated 12/14/20: Improved status Monitor closely 12/15/20: Monitor closely BP monitored 12/16/20: Monitor BP Monitor Tely 12/17/20: Monitor closely Recheck next week 12/18/20: Monitor closely BP monitor Loop recorder 12/19/20: NHP will be needed Monitor BP 12/16/2020: Monitor for falls Claritin for allergies (1) Acute CVA (cerebrovascular accident) Status: Acute (2) HTN (hypertension) Status: Acute (3) HLD (hyperlipidemia) Status: Acute MOHIT BOYKIN DO December 20, 2020 08:07
[2020-12-20] MEDS: NYSTATIN ORAL SUSP 5 ML UDC PO SCH ×4 (08:12→20:18)
[2020-12-20] MEDS: NICOTINE 14 MG (NICODERM) PATCH TD SCH (08:12)
[2020-12-20] MEDS: DOCUSATE SODIUM 100 MG (COLACE) CAP PO SCH ×2 (08:13→20:18)
[2020-12-20] MEDS: NICOTINE PATCH REMOVAL TP SCH (08:13)
[2020-12-20] MEDS: SENNA W/DOCUSATE (SENOKOT S) TABLET PO SCH ×2 (08:13→20:18)
[2020-12-20] MEDS: CALCIUM CARBONATE 600 MG (CALCARB) TAB PO SCH (08:13)
[2020-12-20] MEDS: ASPIRIN E.C. 81 MG (ECOTRIN) TAB PO SCH (08:13)
--- NOTE | 2020-12-20 09:36 | Physical Therapy Daily Note ---
PT Daily Note-Current Subjective Pt. agrees to Rx, feeling better today Pain Location: No Pain Reported Mental Status Patient Orientation: Person, Place, Time, Situation Transfers SCALE: Activities may be completed with or without assistive devices. 7-Toqwcbqxxl-qzixvnv completes the activity by him/herself with no assistance from a helper. 5-Set-up or Clean-up Assistance-helper sets up or cleans up; patient completes activity. [place] assists only prior to or following the activity. 4-Supervision or Touching Assistance-helper provides verbal cues and/or touching/steadying and/or contact guard assistance as patient completes activity. Assistance may be provided throughout the activity or intermittently. 3-Partial/Moderate Assistance-helper does LESS THAN HALF the effort. [place] lifts, holds or supports trunk or limbs, but provides less than half the effort. 2-Substantial/Maximal Assistance-helper does MORE THAN HALF the effort. [place] lifts or holds trunk or limbs and provides more than half the effort. 4-Oaufsxxep-zloplj does ALL the effort. Patient does none of the effort to complete the activity. Or, the assistance of 2 or more helpers is required for the patient to complete the activity. If activity was not attempted, code reason: 7-Patient Refused. 9-Not Applicable-not attempted and the patient did not perform the activity before the current illness, exacerbation or injury. 10-Not Attempted due to Environmental Limitations-(lack of equipment, weather restraints, etc.). 88-Not Attempted due to Medical Conditions or Safety Concerns. Sit to Stand (QC): 3 much emphasis on sit to stand wit proper forward wt shift etc, pt. plopping back down before on her feet, L knee flexed and unstable Gait Training Does the Patient Walk?: Yes Walk 50 ft with 2 Turns(QC): 3 Gait Persons Needed: 1 Gait Assistive Device: Walker Alec 30ft, 50ft, 20ft, with w/c to follow, instruction in sequence frequently, assist to stabilize left knee required every step, pt. leaning heavily to left Wheelchair Training Does the Pt Use a Wheelchair?: Yes Wheel 150 ft (QC): 5 Type of Wheelchair: Manual cues for advancing and protecting L foot needed but pt. propels w/c well Exercises Seated Therapy Exercises: Ankle pumps, Sit to stand, Long arc quads, Hip flexion, Hip abd/add Seated Reps: 15 Assessment Current Status: Good Progress PT Short Term Goals Short Term Goals Time Frame: December 18, 2020 Roll Left & Right: 4 Sit to lyin Lying to sitting on side of be: 4 Sit to stand: 3 Chair/xvq-xa-qlmpz transfer: 3 Walk 10 feet: 3 Walk 50 feet with two turns: 3 PT Recruiter Manager Goals [facility] Goals PT Recruiter Manager Goals Time Frame: Jan 01, 2021 Roll Left & Right (QC): 6 Sit to Lying (QC): 6 Lying-Sitting on Side/Bed(QC): 6 Sit to Stand (QC): 4 Chair/Hoi-lu-Rcien Xfer(QC): 4 Toilet Transfer (QC): 4 Car Transfer (QC): 4 Does the Patient Walk: Yes Walk 10 feet (QC): 4 Walk 50ft with 2 Turns (QC): 4 Walk 150 ft (QC): 88 Walking 10ft on Uneven Surface: 3 1 Step (curb) (QC): 3 4 Steps (QC): 88 12 Steps (QC): 88 Picking up an Object (QC): 88 Wheel 50 feet with 2 turns (QC: 5 Wheel 150 feet: 5 PT Plan Treatment/Plan Treatment Plan: Continue Plan of Care Treatment Plan: Bed Mobility, Education, Functional Activity Helene, Functional Strength, Group Therapy, Gait, Safety, Therapeutic Exercise, Transfers Treatment Duration: Jan 01, 2021 Frequency: At least 5 of 7 days/Wk (IRF) Estimated Hrs Per Day: 1.5 hours per day Patient and/or Family Agrees t: Yes Safety Risks/Education Patient Education: Gait Training, Transfer Techniques, Correct Positioning, W/C Management, Disease Process, Safety Issues Teaching Recipient: Patient Teaching Methods: Demonstration, Discussion Response to Teaching: Verbalize Understanding, Return Demonstration, Reinforcement Needed Time/GCodes Time In: 905 Time Out: 930 Total Billed Treatment Time: 25 Total Billed Treatment 1,EX10m,GT15m JORGE CLEANING IMMUNOHEMATOLOGIST December 20, 2020 09:36
[2020-12-20] MEDS: ENOXAPARIN 40 MG/0.4 ML (LOVENOX) SYR SC SCH (11:15)
[2020-12-20] MEDS ORDERED: LORATADINE (CLARITIN) 10 MG TAB PO ONE (12:45)
[2020-12-20 19:55] VITALS: BP 102/52
[2020-12-20] MEDS: polyethylene glycoL POWDER 17 GM (MIRALAX) PACK PO SCH (20:13)
[2020-12-20] MEDS: MELATONIN 3 MG TABLET PO SCH (20:18)
[2020-12-21] MEDS: MULTIVIT W/MINERALS TAB (THERAGRAN M) PO SCH (06:36)
[2020-12-21] MEDS: CYANOCOBALAMIN 1,000 MCG (VITAMIN B-12) TABLET PO SCH (06:36)
--- NOTE | 2020-12-21 06:57 | PM&R Progress Note ---
Subjective HPI/CC On Admission Date Seen by Provider: December 21, 2020 Time Seen by Provider: 11:30 Subjective/Events-last exam 12/21/2020 Patient much improved Tired a bit Son tried to come in to disturb her to get the apartment chambers at 11:00 so she did not sleep well 12/20/2020: No major issues today Has some allergies so we will start Claritin No falls Continues to work with therapy 12/19/20: Pt doing pretty well BP a bit low so will DC Lisinopril per cardiology Bowels moved two days ago Overall feels really good 12/18/20: Patient doing well Plateaued in PT Needs NHP 12/17/20: Pt doing pretty well Still requiring a bedside commode and two people assist DC telemetry Bowels are moving okay Softer stools noted 12/16/20: Pt doing really well Telemetry noted, HR of 30s but on assessment it was 78 Decreasing BP medications Bowels moved yesterday 12/15/20: Pt doing pretty well Had a BM yesterday but it was hard Had a bloody nose so I will start nasal spray Overall no major concerns 12/14/20: Patient denies any issues No pain reported BM+ 12/13/20: Patient doing well Having some abdominal cramps from laxatives No other issues reported Tearful at times Doing well with thin liquids 12/12/20: Pt doing okay but a little bit tired Decreased stamina from the stroke No BM so laxatives will be given, this is the third day without a BM 12/11/20: Pt settling in well today Doing very well Taking pills okay Feeds herself Flaccidity on the left side noted Bowels moved two days ago Review of Systems General: Fatigue Neurological: Weakness, Incoordination Objective Exam Vital Signs Vital Signs Date Time Temp Pulse Resp B/P (MAP) Pulse Ox O2 Delivery O2 Flow Rate FiO2 12/21/20 09:37 Room Air 12/21/20 07:58 36.4 70 18 108/57 (74) 95 Capillary Refill : General Appearance: No Apparent Distress, WD/WN, Chronically ill, Thin HEENT: PERRL/EOMI, Normal ENT Inspection, Pharynx Normal Neck: Full Range of Motion, Normal Inspection, Non Tender, Supple, Carotid Bruit Respiratory: Chest Non Tender, Lungs Clear, Normal Breath Sounds, No Accessory Muscle Use, No Respiratory Distress Cardiovascular: Regular Rate, Rhythm, No Edema, No Gallop, No JVD, No Murmur, Normal Peripheral Pulses Gastrointestinal: Normal Bowel Sounds, No Organomegaly, No Pulsatile Mass, Non Tender, Soft Back: Normal Inspection, No CVA Tenderness, No Vertebral Tenderness Extremity: Normal Capillary Refill, Normal Inspection, Normal Range of Motion, Non Tender, No Calf Tenderness, No Pedal Edema Neurologic/Psychiatric: Alert, Oriented x3, Abnormal Gait, Aphasia, Depressed Affect, Facial Droop, Motor Weakness (left sided flaccidity) Skin: Normal Color, Warm/Dry Lymphatic: No Adenopathy Results/Procedures Lab Patient resulted labs reviewed. FIM Transfers Therapy Code Descriptions/Definitions Functional [place] Measure: 0=Not Assessed/NA 4=Minimal Assistance 1=Total Assistance 5=Supervision or Setup 2=Maximal Assistance 6=Modified [place] 3=Moderate Assistance 7=Complete IndependenceSCALE: Activities may be completed with or without assistive devices. 5-Uqhdbvtigd-rtbuofl completes the activity by him/herself with no assistance from a helper. 5-Set-up or Clean-up Assistance-helper sets up or cleans up; patient completes activity. [place] assists only prior to or following the activity. 4-Supervision or Touching Assistance-helper provides verbal cues and/or touching/steadying and/or contact guard assistance as patient completes activity. Assistance may be provided throughout the activity or intermittently. 3-Partial/Moderate Assistance-helper does LESS THAN HALF the effort. [place] lifts, holds or supports trunk or limbs, but provides less than half the effort. 2-Substantial/Maximal Assistance-helper does MORE THAN HALF the effort. [place] lifts or holds trunk or limbs and provides more than half the effort. 7-Wqmxmxqcw-umuqxw does ALL the effort. Patient does none of the effort to complete the activity. Or, the assistance of 2 or more helpers is required for the patient to complete the activity. If activity was not attempted, code reason: 7-Patient Refused. 9-Not Applicable-not attempted and the patient did not perform the activity before the current illness, exacerbation or injury. 10-Not Attempted due to Environmental Limitations-(lack of equipment, weather restraints, etc.). 88-Not Attempted due to Medical Conditions or Safety Concerns. Roll Left to Right (QC): 4 Sit to Lying (QC): 3 Sit to Stand (QC): 3 Chair/Ylf-su-Lgqxs Xfer(QC): 3 Car Transfer (QC): 3 Gait Training Does the Patient Walk?: Yes Distance: 75'x4, 20' Walk 10 feet (QC): 3 Walk 50 ft with 2 Turns(QC): 3 Walk 150 ft (QC): 88 Walking 10ft/uneven surface-QC: 88 Gait Persons Needed: 1 Gait Assistive Device: Walker Alec Wheelchair Training Does the Pt Use a Wheelchair?: Yes Distance: 50' Wheel 50 ft with 2 turns (QC): 4 Wheel 150 ft (QC): 5 Type of Wheelchair: Manual Stair Training 1 Step (curb) (QC): 88 4 Steps (QC): 88 12 Steps (QC): 88 Balance Picking up an Object (QC): 88 ADL-Treatment Eating (QC): 5 Oral Hygiene (QC): 4 (SBA with adapted toothbrush for dentures.) Bathing Location: L Arm, R Arm, L Upper Leg, R Upper Leg, Chest, Abdomen, Bu ttocks, Perineal Area Shower/Bathe Self (QC): 3 (Min assist and increased time for sponge bath. Pt. able to complete most parts seated in wheelchair. Requires min assist for balance in stance while pt. 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 HTN HLP h/o breast cancer Smoker s/p loop recorder 12/18/20 Plan: Aggressive rehab Walker with platform Monitor closely 12/11/20: Monitor BP Cardiology consultation 12/12/20: BM regimen Fall risk 12/13/20: Monitor O2 BP management Cardiology appreciated 12/14/20: Improved status Monitor closely 12/15/20: Monitor closely BP monitored 12/16/20: Monitor BP Monitor Tely 12/17/20: Monitor closely Recheck next week 12/18/20: Monitor closely BP monitor Loop recorder 12/19/20: NHP will be needed Monitor BP 12/20/2020: Monitor for falls Claritin for allergies 12/21/2020 Monitor closely Fall risk (1) Acute CVA (cerebrovascular accident) Status: Acute (2) HTN (hypertension) Status: Acute (3) HLD (hyperlipidemia) Status: Acute MOHIT BOYKIN DO December 21, 2020 06:57
[2020-12-21] MEDS: CALCIUM CARBONATE 600 MG (CALCARB) TAB PO SCH (07:53)
[2020-12-21] MEDS: LORATADINE (CLARITIN) 10 MG TAB PO SCH (07:53)
[2020-12-21] MEDS: NYSTATIN ORAL SUSP 5 ML UDC PO SCH ×4 (07:53→20:23)
[2020-12-21] MEDS: SENNA W/DOCUSATE (SENOKOT S) TABLET PO SCH ×2 (07:53→20:23)
[2020-12-21] MEDS: ASPIRIN E.C. 81 MG (ECOTRIN) TAB PO SCH (07:53)
[2020-12-21] MEDS: NICOTINE PATCH REMOVAL TP SCH (07:53)
[2020-12-21] MEDS: DOCUSATE SODIUM 100 MG (COLACE) CAP PO SCH ×2 (07:53→20:23)
[2020-12-21] MEDS: NICOTINE 14 MG (NICODERM) PATCH TD SCH (07:53)
[2020-12-21 07:58] VITALS: BP 108/57
[2020-12-21] MEDS: ENOXAPARIN 40 MG/0.4 ML (LOVENOX) SYR SC SCH (12:02)
[2020-12-21] MEDS: polyethylene glycoL POWDER 17 GM (MIRALAX) PACK PO SCH (19:28)
[2020-12-21 19:45] VITALS: BP 132/69
[2020-12-21] MEDS: MELATONIN 3 MG TABLET PO SCH (20:23)
[2020-12-22 05:43] LABS: BASOPHILS # (AUTO) 0.1 10^3/uL (0.0-0.1); BASOPHILS % (AUTO) 1 % (0-10); EOSINOPHILS # (AUTO) 0.2 10^3/uL (0.0-0.3); EOSINOPHILS % (AUTO) 3 % (0-10); HEMATOCRIT 35 % (35-52); HEMOGLOBIN 11.2 g/dL (11.5-16.0); LYMPHOCYTES # (AUTO) 2.2 10^3/uL (1.0-4.0); LYMPHOCYTES % (AUTO) 33 % (12-44); MEAN CORPUSCULAR HEMOGLOBIN 29 pg (25-34); MEAN CORPUSCULAR HGB CONC 32 g/dL (32-36); MEAN CORPUSCULAR VOLUME 92 fL (80-99); MONOCYTES # (AUTO) 0.6 10^3/uL (0.0-1.0); MONOCYTES % (AUTO) 8 % (0-12); NEUTROPHILS # (AUTO) 3.6 10^3/uL (1.8-7.8); NEUTROPHILS % (AUTO) 54 % (42-75); PLATELET COUNT 321 10^3/uL (130-400); WHITE BLOOD COUNT 6.7 10^3/uL (4.3-11.0)
[2020-12-22 05:58] LABS: ALBUMIN 3.5 GM/DL (3.2-4.5)
[2020-12-22 05:59] LABS: CHLORIDE 102 MMOL/L (98-107); POTASSIUM 4.3 MMOL/L (3.6-5.0); SODIUM 139 MMOL/L (135-145)
[2020-12-22 06:00] LABS: CALCIUM 9.1 MG/DL (8.5-10.1)
[2020-12-22 06:01] LABS: GLUCOSE 103 MG/DL (70-105); TOTAL PROTEIN 6.2 GM/DL (6.4-8.2)
[2020-12-22 06:02] LABS: CARBON DIOXIDE 26 MMOL/L (21-32)
[2020-12-22 06:03] LABS: BILIRUBIN,TOTAL 0.4 MG/DL (0.1-1.0)
[2020-12-22 06:04] LABS: ALKALINE PHOSPHATASE 66 U/L (40-136)
[2020-12-22 06:05] LABS: CREATININE SERUM 0.76 MG/DL (0.60-1.30); GFR ESTIMATED > 60
[2020-12-22 06:06] LABS: BUN/CREATININE RATIO 20
[2020-12-22 06:07] LABS: ALANINE AMINOTRANSFERASE 37 U/L (0-55)
[2020-12-22] MEDS: MULTIVIT W/MINERALS TAB (THERAGRAN M) PO SCH (06:26)
[2020-12-22] MEDS: CYANOCOBALAMIN 1,000 MCG (VITAMIN B-12) TABLET PO SCH (06:26)
[2020-12-22 07:52] VITALS: BP 106/52
--- NOTE | 2020-12-22 08:57 | Occupational Ther Daily Note ---
OT Current Status-Daily Note Subjective No pain reported. Appearance Pt. alert. Agrees to work with therapy. Mental Status/Objective Patient Orientation: Person, Place, Time, Situation ADL-Treatment Therapy Code Descriptions/Definitions Functional [place] Measure: 0=Not Assessed/NA 4=Minimal Assistance 1=Total Assistance 5=Supervision or Setup 2=Maximal Assistance 6=Modified [place] 3=Moderate Assistance 7=Complete IndependenceSCALE: Activities may be completed with or without assistive devices. 7-Rvsiyqjijd-ynyxhoq completes the activity by him/herself with no assistance from a helper. 5-Set-up or Clean-up Assistance-helper sets up or cleans up; patient completes activity. [place] assists only prior to or following the activity. 4-Supervision or Touching Assistance-helper provides verbal cues and/or touching/steadying and/or contact guard assistance as patient completes activity. Assistance may be provided throughout the activity or intermittently. 3-Partial/Moderate Assistance-helper does LESS THAN HALF the effort. [place] lifts, holds or supports trunk or limbs, but provides less than half the effort. 2-Substantial/Maximal Assistance-helper does MORE THAN HALF the effort. [place] lifts or holds trunk or limbs and provides more than half the effort. 0-Laarthivk-zdouly does ALL the effort. Patient does none of the effort to complete the activity. Or, the assistance of 2 or more helpers is required for the patient to complete the activity. If activity was not attempted, code reason: 7-Patient Refused. 9-Not Applicable-not attempted and the patient did not perform the activity before the current illness, exacerbation or injury. 10-Not Attempted due to Environmental Limitations-(lack of equipment, weather restraints, etc.). 88-Not Attempted due to Medical Conditions or Safety Concerns. Eating (QC): 5 Shower/Bathe Self (QC): 4 (CGA seated on shower chair with cut out.) Upper Body Dressing (QC): 3 (Mod assist to don long sleeve shirt.) Lower Body Dressing (QC): 3 (Mod assist overall. Pt. able to thread pants in shower room. Pt. able to stand at bar with mod assist of one person, and also receive assist to don pants over hips while assisting herself.) On/Off Footwear: 2 Toileting Hygiene (QC): 2 Toilet Transfer (QC): 3 Other Treatment Pt. seen for partial co-treatment with PT/OT due to need of skilled clinicians x 2 due to decreased endurance this a.m. PT facilitated long ambulation with gucci cane to big shower room, (see PT note for distance and assist level), while OT assisted with ADL skills training in shower. Pt. does attempt to use left UE to assist right with bilateral tasks, but has difficulty. Working toward inde pendence with right. PT assisted intermittently with stands in shower during ADLs for cleansing. After ADLs, PT facilitated ambulation back to room with seated breaks for rest along way. Pt. with PT at end of OT session. Education OT Patient Education: Correct positioning, Modified ADL techniques, Progress toward Goal/Update tx plan, Purpose of tx/functional activities, Reviewed precautions, Rehab process, Transfer techniques Teaching Recipient: Patient Teaching Methods: Demonstration, Discussion Response to Teaching: Verbalize Understanding, Return Demonstration OT Short Term Goals Short Term Goals Time Frame: Dec 25, 2020 Eatin Oral hygiene: 3 Toileting hygiene: 3 Shower/bathe self: 3 Upper body dressin Lower body dressin Putting on/taking off footwear: 3 OT Jail Goals Hot Plate Plywood Press Laborer Goals Time Frame: Jan 08, 2021 Eating (QC): 6 Oral Hygiene (QC): 5 Toileting Hygiene (QC): 4 Shower/Bathe Self (QC): 4 Upper Body Dressing (QC): 5 Lower Body Dressing (QC): 4 On/Off Footwear (QC): 4 Additional Goals: 1-Demonstrate ADL Tasks, 2-Verbalize Understanding, 3- ImproveStrength/Helene 1=Demonstrate adherence to instructed precautions during ADL tasks. 2=Patient will verbalize/demonstrate understanding of assistive devices/modifications for ADL. 3=Patient will improve strength/tolerance for activity to enable patient to perform ADL's. OT Education/Plan Problem List/Assessment Assessment: Decreased Activ Tolerance, Decreased UE Strength, Dependent Transfers, Impaired Coordination, Impaired Funct Balance, Impaired I ADL's, Impaired Self-Care Skills, Restricted Funct UE ROM Discharge Recommendations Plan/Recommendations: Continue POC Therapy Discharge Recommendati: Post Acute OT Treatment Plan/Plan of Care Treatment,Training & Education: Yes Patient would benefit from OT for education, treatment and training to promote independence in ADL's, mobility, safety and/or upper extremity function for ADL's. Plan of Care: ADL Retraining, Functional Mobility, Group Exercise/Act as Ind, UE Funct Exercise/Act Treatment Duration: Jan 08, 2021 Frequency: At least 5 of 7 days/Wk (IRF) Estimated Hrs Per Day: 1.5 hours per day Agreement: Yes Rehab Potential: Good Time/GCodes Start Time: 07:50 Stop Time: 08:50 Total Time Billed (hr/min): 60 Billed Treatment Time 0681-0459 1, ADL x 10minutes [id number] ADL x 50minutes- Co-treatment with PT. Please see above note for designated roles. MIGUEL CARRIZALES OT December 22, 2020 08:57
--- NOTE | 2020-12-22 08:58 | Physical Therapy Daily Note ---
PT Daily Note-Current Subjective Patient in recliner pre tx, agrees to PT, has no complaints of pain. Will be co-treating with OT due to poor patient mobility, strength, endurance, left hemiparesis, coordinate UE and LE during activity, safety and reduce risk of falls. Appearance Patient in recliner post tx with nurse call, phone, tray, chair alarm on. Mental Status Patient Orientation: Person, Place, Situation Transfers SCALE: Activities may be completed with or without assistive devices. 3-Xscanpunzs-tcxqyvx completes the activity by him/herself with no assistance from a helper. 5-Set-up or Clean-up Assistance-helper sets up or cleans up; patient completes activity. [place] assists only prior to or following the activity. 4-Supervision or Touching Assistance-helper provides verbal cues and/or touching/steadying and/or contact guard assistance as patient completes activity. Assistance may be provided throughout the activity or intermittently. 3-Partial/Moderate Assistance-helper does LESS THAN HALF the effort. [place] lifts, holds or supports trunk or limbs, but provides less than half the effort. 2-Substantial/Maximal Assistance-helper does MORE THAN HALF the effort. [place] lifts or holds trunk or limbs and provides more than half the effort. 6-Nayodnbrw-khnkpv does ALL the effort. Patient does none of the effort to complete the activity. Or, the assistance of 2 or more helpers is required for the patient to complete the activity. If activity was not attempted, code reason: 7-Patient Refused. 9-Not Applicable-not attempted and the patient did not perform the activity before the current illness, exacerbation or injury. 10-Not Attempted due to Environmental Limitations-(lack of equipment, weather restraints, etc.). 88-Not Attempted due to Medical Conditions or Safety Concerns. Sit to Stand (QC): 3 Chair/Ssa-vg-Edcaj Xfer(QC): 3 Patient still has a lot of trouble remembering to reach back for the armrest when going from stand to sit and tends to plop into chair, guided carefully by therapist. Gait Training Distance: 60'x2, 40'x2 Walk 10 feet (QC): 3 Walk 50 ft with 2 Turns(QC): 3 Gait Assistive Device: Walker Alec Min assist for balance and weight shifting, patient is improving with advancing her left leg and weight shifting on her own but still needs assist Treatments PT performed transfers, ambulation, assist with balance and positioning during bathing and dressing, OT worked on bathing and dressing and UE positioning and safety during activity. Assessment Current Status: Fair Progress Patient has had no improvement with ambulation for about a week PT Short Term Goals Short Term Goals Time Frame: December 18, 2020 Roll Left & Right: 4 Sit to lyin Lying to sitting on side of be: 4 Sit to stand: 3 Chair/vck-vj-nxhmv transfer: 3 Walk 10 feet: 3 Walk 50 feet with two turns: 3 PT Hemstitching Machine Operator Goals Hemstitching Machine Operator Goals PT Hemstitching Machine Operator Goals Time Frame: Jan 01, 2021 Roll Left & Right (QC): 6 Sit to Lying (QC): 6 Lying-Sitting on Side/Bed(QC): 6 Sit to Stand (QC): 4 Chair/Mrm-kv-Ixrlz Xfer(QC): 4 Toilet Transfer (QC): 4 Car Transfer (QC): 4 Does the Patient Walk: Yes Walk 10 feet (QC): 4 Walk 50ft with 2 Turns (QC): 4 Walk 150 ft (QC): 88 Walking 10ft on Uneven Surface: 3 1 Step (curb) (QC): 3 4 Steps (QC): 88 12 Steps (QC): 88 Picking up an Object (QC): 88 Wheel 50 feet with 2 turns (QC: 5 Wheel 150 feet: 5 PT Plan Problem List Problem List: Activity Tolerance, Functional Strength, Safety, Balance, Gait, Transfer, Bed Mobility, ROM Treatment/Plan Treatment Plan: Continue Plan of Care Treatment Plan: Bed Mobility, Education, Functional Activity Helene, Functional Strength, Group Therapy, Gait, Safety, Therapeutic Exercise, Transfers Treatment Duration: Jan 01, 2021 Frequency: At least 5 of 7 days/Wk (IRF) Estimated Hrs Per Day: 1.5 hours per day Patient and/or Family Agrees t: Yes Safety Risks/Education Patient Education: Gait Training, Transfer Techniques, Correct Positioning, Safety Issues Teaching Recipient: Patient Teaching Methods: Demonstration, Discussion Response to Teaching: Reinforcement Needed Time/GCodes Time In: 0800 Time Out: 0900 Total Billed Treatment Time: 60 Total Billed Treatment 1 visit GT 30' FA 30' co-treated from [id number] BHARAT THOMAS PT December 22, 2020 08:58
[2020-12-22] MEDS: DOCUSATE SODIUM 100 MG (COLACE) CAP PO SCH ×2 (09:06→21:03)
[2020-12-22] MEDS: NYSTATIN ORAL SUSP 5 ML UDC PO SCH ×4 (09:06→21:03)
[2020-12-22] MEDS: NICOTINE 14 MG (NICODERM) PATCH TD SCH (09:06)
[2020-12-22] MEDS: LORATADINE (CLARITIN) 10 MG TAB PO SCH (09:06)
[2020-12-22] MEDS: CALCIUM CARBONATE 600 MG (CALCARB) TAB PO SCH (09:07)
[2020-12-22] MEDS: SENNA W/DOCUSATE (SENOKOT S) TABLET PO SCH ×2 (09:07→21:03)
[2020-12-22] MEDS: NICOTINE PATCH REMOVAL TP SCH (09:07)
[2020-12-22] MEDS: ASPIRIN E.C. 81 MG (ECOTRIN) TAB PO SCH (09:07)
[2020-12-22] MEDS: ENOXAPARIN 40 MG/0.4 ML (LOVENOX) SYR SC SCH (11:04)
--- NOTE | 2020-12-22 11:37 | PM&R Progress Note ---
Subjective HPI/CC On Admission Date Seen by Provider: December 22, 2020 Time Seen by Provider: 11:45 Subjective/Events-last exam 12/22/2020: Patient doing really well Daughter at the bedside Labs good Walking with a hemicane Overall doing pretty well but has plateaued 12/21/2020 Patient much improved Tired a bit Son tried to come in to disturb her to get the apartment chambers at 11:00 so she did not sleep well 12/20/2020: No major issues today Has some allergies so we will start Claritin No falls Continues to work with therapy 12/19/20: Pt doing pretty well BP a bit low so will DC Lisinopril per cardiology Bowels moved two days ago Overall feels really good 12/18/20: Patient doing well Plateaued in PT Needs NHP 12/17/20: Pt doing pretty well Still requiring a bedside commode and two people assist DC telemetry Bowels are moving okay Softer stools noted 12/16/20: Pt doing really well Telemetry noted, HR of 30s but on assessment it was 78 Decreasing BP medications Bowels moved yesterday 12/15/20: Pt doing pretty well Had a BM yesterday but it was hard Had a bloody nose so I will start nasal spray Overall no major concerns 12/14/20: Patient denies any issues No pain reported BM+ 12/13/20: Patient doing well Having some abdominal cramps from laxatives No other issues reported Tearful at times Doing well with thin liquids 12/12/20: Pt doing okay but a little bit tired Decreased stamina from the stroke No BM so laxatives will be given, this is the third day without a BM 12/11/20: Pt settling in well today Doing very well Taking pills okay Feeds herself Flaccidity on the left side noted Bowels moved two days ago Review of Systems General: Fatigue Neurological: Weakness, Incoordination Objective Exam Vital Signs Vital Signs Date Time Temp Pulse Resp B/P (MAP) Pulse Ox O2 Delivery O2 Flow Rate FiO2 12/22/20 08:35 Room Air 12/22/20 07:52 36.0 67 18 106/52 (70) 95 Capillary Refill : General Appearance: No Apparent Distress, WD/WN, Chronically ill, Thin HEENT: PERRL/EOMI, Normal ENT Inspection, Pharynx Normal Neck: Full Range of Motion, Normal Inspection, Non Tender, Supple, Carotid Bruit Respiratory: Chest Non Tender, Lungs Clear, Normal Breath Sounds, No Accessory Muscle Use, No Respiratory Distress Cardiovascular: Regular Rate, Rhythm, No Edema, No Gallop, No JVD, No Murmur, Normal Peripheral Pulses Gastrointestinal: Normal Bowel Sounds, No Organomegaly, No Pulsatile Mass, Non Tender, Soft Back: Normal Inspection, No CVA Tenderness, No Vertebral Tenderness Extremity: Normal Capillary Refill, Normal Inspection, Normal Range of Motion, Non Tender, No Calf Tenderness, No Pedal Edema Neurologic/Psychiatric: Alert, Oriented x3, Abnormal Gait, Aphasia, Depressed Affect, Facial Droop, Motor Weakness (left sided flaccidity) Skin: Normal Color, Warm/Dry Lymphatic: No Adenopathy Results/Procedures Lab Laboratory Tests 12/22/20 05:15 Patient resulted labs reviewed. FIM Transfers Therapy Code Descriptions/Definitions Functional [place] Measure: 0=Not Assessed/NA 4=Minimal Assistance 1=Total Assistance 5=Supervision or Setup 2=Maximal Assistance 6=Modified [place] 3=Moderate Assistance 7=Complete IndependenceSCALE: Activities may be completed with or without assistive devices. 6-Rsbyzrccdy-nwnfwcs completes the activity by him/herself with no assistance from a helper. 5-Set-up or Clean-up Assistance-helper sets up or cleans up; patient completes activity. [place] assists only prior to or following the activity. 4-Supervision or Touching Assistance-helper provides verbal cues and/or touching/steadying and/or contact guard assistance as patient completes activity. Assistance may be provided throughout the activity or intermittently. 3-Partial/Moderate Assistance-helper does LESS THAN HALF the effort. [place] lifts, holds or supports trunk or limbs, but provides less than half the effort. 2-Substantial/Maximal Assistance-helper does MORE THAN HALF the effort. [place] lifts or holds trunk or limbs and provides more than half the effort. 8-Otlzgporu-aneytw does ALL the effort. Patient does none of the effort to complete the activity. Or, the assistance of 2 or more helpers is required for the patient to complete the activity. If activity was not attempted, code reason: 7-Patient Refused. 9-Not Applicable-not attempted and the patient did not perform the activity before the current illness, exacerbation or injury. 10-Not Attempted due to Environmental Limitations-(lack of equipment, weather restraints, etc.). 88-Not Attempted due to Medical Conditions or Safety Concerns. Roll Left to Right (QC): 4 Sit to Lying (QC): 3 Sit to Stand (QC): 3 Chair/Lkb-ef-Oyqzs Xfer(QC): 3 Car Transfer (QC): 3 Gait Training Does the Patient Walk?: Yes Distance: 60'x2, 40'x2 Walk 10 feet (QC): 3 Walk 50 ft with 2 Turns(QC): 3 Walk 150 ft (QC): 88 Walking 10ft/uneven surface-QC: 88 Gait Persons Needed: 1 Gait Assistive Device: Walker Alec Wheelchair Training Does the Pt Use a Wheelchair?: Yes Distance: 50' Wheel 50 ft with 2 turns (QC): 4 Wheel 150 ft (QC): 5 Type of Wheelchair: Manual Stair Training 1 Step (curb) (QC): 88 4 Steps (QC): 88 12 Steps (QC): 88 Balance Picking up an Object (QC): 88 ADL-Treatment Eating (QC): 5 Oral Hygiene (QC): 4 (SBA with adapted toothbrush for dentures.) Bathing Location: L Arm, R Arm, L Upper Leg, R Upper Leg, Chest, Abdomen, Buttocks, Perineal Area Shower/Bathe Self (QC): 4 (CGA seated on shower chair with cut out.) Upper Body Dressing (QC): 3 (Mod assist to don long sleeve shirt.) Lower Body Dressing (QC): 3 (Mod assist overall. Pt. able to thread pants in shower room. Pt. 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 HTN HLP h/o breast cancer Smoker s/p loop recorder 12/18/20 Plan: Aggressive rehab Walker with platform Monitor closely 12/11/20: Monitor BP Cardiology consultation 12/12/20: BM regimen Fall risk 12/13/20: Monitor O2 BP management Cardiology appreciated 12/14/20: Improved status Monitor closely 12/15/20: Monitor closely BP monitored 12/16/20: Monitor BP Monitor Tely 12/17/20: Monitor closely Recheck next week 12/18/20: Monitor closely BP monitor Loop recorder 12/19/20: NHP will be needed Monitor BP 12/20/2020: Monitor for falls Claritin for allergies 12/21/2020 Monitor closely Fall risk 12/22/2020: Monitor closely Plan for discharge sometime this week likely longterm (1) Acute CVA (cerebrovascular accident) Status: Acute (2) HTN (hypertension) Status: Acute (3) HLD (hyperlipidemia) Status: Acute MOHIT BOYKIN DO December 22, 2020 11:37
--- NOTE | 2020-12-22 12:22 | Therapy Group Daily Note ---
Therapy Daily Group Note Patient Education Topic Home Safety Exercises LE Seated Exercise, UE Exercise Session Ratio (pt:therapist): 4:1 Goal of Session: Home Safety Strategies, UE/LE Strengthing Goal Met for this Session: Yes Pt Benefit of Group: F/U Use of Strategies @Home Other/Notes Pt propelled w/c to OT group. Group consisted of introduction (name,place living, roll a question ice breaker game), socialization, B UE/LE seated exercises, home safety trivia game and home safety education. Pt introduced self appropriately and actively listened to peers. Pt able to tolerate exerci ses well without modifications. Pt acknowledged understanding of educational topic by giving own personal strategies and answering trivia correctly. Pt propelled self to room using w/c. After group, pt sitting in recliner with call light/phone in reach. All needs met in room. Daughter present throughout group session. Start Time: 11:00 Stop Time: 12:00 Total Billed Treatment Time: 60 Total Billed Treatment 1-GRP ED SQUIRES December 22, 2020 12:22
[2020-12-22] MEDS: polyethylene glycoL POWDER 17 GM (MIRALAX) PACK PO SCH (19:51)
[2020-12-22 20:00] VITALS: BP 140/76
[2020-12-22] MEDS: MELATONIN 3 MG TABLET PO SCH (21:03)
--- NOTE | 2020-12-23 06:07 | PM&R Progress Note ---
Subjective HPI/CC On Admission Date Seen by Provider: Dec 23, 2020 Time Seen by Provider: 11:00 Subjective/Events-last exam 12/23/20: Pt doing pretty well Daughter was very irritated with everyone on the care team for unknown reason. She appears to be very overwhelmed and trying to manage everything with her mom. Will try to be supportive and understanding but she was very rude to me and social working and everyone on the care team. 12/22/2020: Patient doing really well Daughter at the bedside Labs good Walking with a hemicane Overall doing pretty well but has plateaued 12/21/2020 Patient much improved Tired a bit Son tried to come in to disturb her to get the apartment chambers at 11:00 so she did not sleep well 12/20/2020: No major issues today Has some allergies so we will start Claritin No falls Continues to work with therapy 12/19/20: Pt doing pretty well BP a bit low so will DC Lisinopril per cardiology Bowels moved two days ago Overall feels really good 12/18/20: Patient doing well Plateaued in PT Needs NHP 12/17/20: Pt doing pretty well Still requiring a bedside commode and two people assist DC telemetry Bowels are moving okay Softer stools noted 12/16/20: Pt doing really well Telemetry noted, HR of 30s but on assessment it was 78 Decreasing BP medications Bowels moved yesterday 12/15/20: Pt doing pretty well Had a BM yesterday but it was hard Had a bloody nose so I will start nasal spray Overall no major concerns 12/14/20: Patient denies any issues No pain reported BM+ 12/13/20: Patient doing well Having some abdominal cramps from laxatives No other issues reported Tearful at times Doing well with thin liquids 12/12/20: Pt doing okay but a little bit tired Decreased stamina from the stroke No BM so laxatives will be given, this is the third day without a BM 12/11/20: Pt settling in well today Doing very well Taking pills okay Feeds herself Flaccidity on the left side noted Bowels moved two days ago Review of Systems General: Fatigue, Malaise Neurological: Weakness, Incoordination Objective Exam Vital Signs Vital Signs Date Time Temp Pulse Resp B/P (MAP) Pulse Ox O2 Delivery O2 Flow Rate FiO2 12/23/20 21:00 Room Air 12/23/20 20:00 36.4 80 18 149/65 (93) 93 Capillary Refill : General Appearance: No Apparent Distress, WD/WN, Chronically ill, Thin HEENT: PERRL/EOMI, Normal ENT Inspection, Pharynx Normal Neck: Full Range of Motion, Normal Inspection, Non Tender, Supple, Carotid Bruit Respiratory: Chest Non Tender, Lungs Clear, Normal Breath Sounds, No Accessory Muscle Use, No Respiratory Distress Cardiovascular: Regular Rate, Rhythm, No Edema, No Gallop, No JVD, No Murmur, Normal Peripheral Pulses Gastrointestinal: Normal Bowel Sounds, No Organomegaly, No Pulsatile Mass, Non Tender, Soft Back: Normal Inspection, No CVA Tenderness, No Vertebral Tenderness Extremity: Normal Capillary Refill, Normal Inspection, Normal Range of Motion, Non Tender, No Calf Tenderness, No Pedal Edema Neurologic/Psychiatric: Alert, Oriented x3, Abnormal Gait, Aphasia, Depressed Affect, Facial Droop, Motor Weakness (left sided flaccidity) Skin: Normal Color, Warm/Dry Lymphatic: No Adenopathy Results/Procedures Lab Patient resulted labs reviewed. FIM Transfers Therapy Code Descriptions/Definitions Functional [place] Measure: 0=Not Assessed/NA 4=Minimal Assistance 1=Total Assistance 5=Supervision or Setup 2=Maximal Assistance 6=Modified [place] 3=Moderate Assistance 7=Complete IndependenceSCALE: Activities may be completed with or without assistive devices. 9-Wvrhgeyhkc-zqdmmny completes the activity by him/herself with no assistance from a helper. 5-Set-up or Clean-up Assistance-helper sets up or cleans up; patient completes activity. [place] assists only prior to or following the activity. 4-Supervision or Touching Assistance-helper provides verbal cues and/or touching/steadying and/or contact guard assistance as patient completes activity. Assistance may be provided throughout the activity or intermittently. 3-Partial/Moderate Assistance-helper does LESS THAN HALF the effort. [place] lifts, holds or supports trunk or limbs, but provides less than half the effort. 2-Substantial/Maximal Assistance-helper does MORE THAN HALF the effort. [place] lifts or holds trunk or limbs and provides more than half the effort. 5-Wpyiluxnl-zoqdvj does ALL the effort. Patient does none of the effort to complete the activity. Or, the assistance of 2 or more helpers is required for the patient to complete the activity. If activity was not attempted, code reason: 7-Patient Refused. 9-Not Applicable-not attempted and the patient did not perform the activity before the current illness, exacerbation or injury. 10-Not Attempted due to Environmental Limitations-(lack of equipment, weather restraints, etc.). 88-Not Attempted due to Medical Conditions or Safety Concerns. Roll Left to Right (QC): 4 Sit to Lying (QC): 3 Sit to Stand (QC): 3 Chair/Aif-wv-Coqbl Xfer(QC): 3 Car Transfer (QC): 3 Gait Training Does the Patient Walk?: Yes Distance: 60'x2, 40'x2 Walk 10 feet (QC): 3 Walk 50 ft with 2 Turns(QC): 3 Walk 150 ft (QC): 88 Walking 10ft/uneven surface-QC: 88 Gait Persons Needed: 1 Gait Assistive Device: Walker Alec Wheelchair Training Does the Pt Use a Wheelchair?: Yes Distance: 50' Wheel 50 ft with 2 turns (QC): 4 Wheel 150 ft (QC): 5 Type of Wheelchair: Manual Stair Training 1 Step (curb) (QC): 88 4 Steps (QC): 88 12 Steps (QC): 88 Balance Picking up an Object (QC): 88 ADL-Treatment Eating (QC): 5 Oral Hygiene (QC): 4 (SBA with adapted toothbrush for dentures.) Bathing Location: L Arm, R Arm, L Upper Leg, R Upper Leg, Chest, Abdomen, Buttocks, Perineal Area Shower/Bathe Self (QC): 4 (CGA seated on shower chair with cut out.) Upper Body Dressing (QC): 3 (Mod assist to don long sleeve shirt.) Lower Body Dressing (QC): 3 (Mod assist overall. Pt. able to thread pants in shower room. Pt. 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 HTN HLP h/o breast cancer Smoker s/p loop recorder 12/18/20 Plan: Aggressive rehab Walker with platform Monitor closely 12/11/20: Monitor BP Cardiology consultation 12/12/20: BM regimen Fall risk 12/13/20: Monitor O2 BP management Cardiology appreciated 12/14/20: Improved status Monitor closely 12/15/20: Monitor closely BP monitored 12/16/20: Monitor BP Monitor Tely 12/17/20: Monitor closely Recheck next week 12/18/20: Monitor closely BP monitor Loop recorder 12/19/20: NHP will be needed Monitor BP 12/20/2020: Monitor for falls Claritin for allergies 12/21/2020 Monitor closely Fall risk 12/22/2020: Monitor closely Plan for discharge sometime this week likely fpc 12/23/20: DC planning Support for daughter who seems very overwhelmed (1) Acute CVA (cerebrovascular accident) Status: Acute (2) HTN (hypertension) Status: Acute (3) HLD (hyperlipidemia) Status: Acute MOHIT BOYKIN DO Dec 23, 2020 06:07
[2020-12-23] MEDS: MULTIVIT W/MINERALS TAB (THERAGRAN M) PO SCH (06:11)
[2020-12-23] MEDS: CYANOCOBALAMIN 1,000 MCG (VITAMIN B-12) TABLET PO SCH (06:12)
[2020-12-23 08:00] VITALS: BP 118/63
--- NOTE | 2020-12-23 08:39 | Cardiology Progress Note ---
Subjective Date Seen by Provider: Dec 23, 2020 Time Seen by Provider: 08:38 Subjective/Events-last exam Patient was seen at bedside, receiving physical therapy Review of Systems General: No Chills, No Night Sweats; Fatigue; No Malaise, No Appetite, No Other HEENT: No Head Aches, No Visual Changes, No Eye Pain, No Ear Pain, No Dysphasia, No Sinus Congestion, No Post Nasal Drip, No Sore Throat, No Other Pulmonary: No Dyspnea, No Cough, No Pleuritic Chest Pain, No Other Cardiovascular: No: Chest Pain, Palpitations, Orthopnea, Paroxysmal Noc. Dyspnea, Edema, Lt Headedness, Other Objective-Cardiology Exam Last Set of Vital Signs Vital Signs 12/22/20 12/22/20 20:00 21:00 Temp 36.2 Pulse 73 Resp 20 B/P (MAP) 140/76 (97) Pulse Ox 97 O2 Delivery Room Air Capillary Refill : General: Alert, Oriented X3, Cooperative HEENT: Atraumatic, PERRLA Neck: Supple, No JVD Lungs: Clear to Auscultation, Normal Air Movement Heart: Regular Rate, Normal S1, Normal S2 Abdomen: Normal Bowel Sounds, Soft Extremities: No Clubbing, No Cyanosis Skin: No Rashes Neuro: Normal Gait, Normal Speech A/P-Cardiology Admission Diagnosis Cryptogenic stroke HTN HLD Assessment/Plan Cryptogenic stroke - MRI showed posterior R frontal lobe stroke possibly in splenium of corpus collosum, Status post loop recorder implant. Continue to monitor for arrhythmia Hypertension, currently borderline hypotension, has been on lisinopril 10 mg daily, I will discontinue it and monitor blood pressure Hyperlipidemia started on Lipitor. Monitor lipids General debility/weakness - PT/OT with IRF, lovenox for DVT prophylaxis History of breast cancer. In remission Tobaccoism, educated on smoking cessation DOROTHY RIVERA MD Dec 23, 2020 08:39
[2020-12-23] MEDS: CALCIUM CARBONATE 600 MG (CALCARB) TAB PO SCH (09:33)
[2020-12-23] MEDS: NYSTATIN ORAL SUSP 5 ML UDC PO SCH ×4 (09:33→20:32)
[2020-12-23] MEDS: DOCUSATE SODIUM 100 MG (COLACE) CAP PO SCH ×2 (09:33→20:32)
[2020-12-23] MEDS: SENNA W/DOCUSATE (SENOKOT S) TABLET PO SCH ×2 (09:33→20:32)
[2020-12-23] MEDS: NICOTINE PATCH REMOVAL TP SCH (09:33)
[2020-12-23] MEDS: ASPIRIN E.C. 81 MG (ECOTRIN) TAB PO SCH (09:33)
[2020-12-23] MEDS: LORATADINE (CLARITIN) 10 MG TAB PO SCH (09:34)
[2020-12-23] MEDS: NICOTINE 14 MG (NICODERM) PATCH TD SCH (09:34)
--- NOTE | 2020-12-23 10:10 | Speech Therapy Daily Note ---
Speech Daily Progress Note Subjective Date Seen by Provider: Dec 23, 2020 Time Seen by Provider: 00:30 Patient was resting in her recliner following her OT session. Speech is noted to be at 90% or greater for intelligibility today. Objective Patient demo safe oral intake with strategies as trained including food:drink alternating, small bites/sips and double swallows as needed. Patient sits up for all intake for at least 30 minutes post. Today she required minimal cuing. Assessment Assessment Current Status: Good Progress Treatment Plan Continue Plan of Care Speech Short Term Goals Short Term Goals Short Term Goals 1) Patient will complete safety awareness tasks related to her daily needs at 80% or greater with minimal cues. 2) Patient will complete speech tasks at 80% or greater with minimal cues. 3) Patient will complete safe oral intake at 90% or greater with least restrictive diet. 4) Patient will utilize compensatory strategies for safe intake at 90% or greater. Speech Helper Shear Operator Goals Senior Care Goals Patient will improve cognitive-communication abilities in order to complete daily living tasks with minimal assist. Patient will maintain adequate nutrition/hydration via safe effective swallow function. Speech-Plan Patient/Family Goals Patient/Family Goals: Patient plans on returning to her home with family support upon discharge. Treatment Plan Speech Therapy Treatment Plan: Continue Plan of Care Treatment Duration: Dec 26, 2020 Frequency: 4 times per week (Patient will receive skilled ST 4-5x per week) Estimated Hrs Per Day: .5 hour per day Rehab Potential: Good Barriers to Learning: Patient's recent CVA with debility, age Pt/Family Agrees to Plan: Yes Safety Risks/Education Teaching Recipient: Patient Teaching Methods: Demonstration, Discussion Response to Teaching: Verbalize Understanding, Return Demonstration Education Topics Provided: Continued safety within her room and upon her return home, continued safety with oral intake and utilization of strategies Time Speech Therapy Time In: 10:00 Speech Therapy Time Out: 10:30 Total Billed Time: 30 Billed Treatment Time 1BENNY SLTS No [place], BETHANIA ST Dec 23, 2020 10:10
--- NOTE | 2020-12-23 10:15 | Physical Therapy Daily Note ---
PT Daily Note-Current Subjective Patient in recliner pre tx, agrees to PT, has no complaints of pain. Will be co-treating for part of tx due to poor patient mobility, strength, endurance, balance, left hemiparesis, coordinate UE and LE during activity, safety and reduce risk of fall Appearance Patient in WC post tx, will continue with OT Mental Status Patient Orientation: Person, Place, Situation Transfers SCALE: Activities may be completed with or without assistive devices. 1-Wgdjzfcpal-vzewimq completes the activity by him/herself with no assistance from a helper. 5-Set-up or Clean-up Assistance-helper sets up or cleans up; patient completes activity. [place] assists only prior to or following the activity. 4-Supervision or Touching Assistance-helper provides verbal cues and/or touching/steadying and/or contact guard assistance as patient completes activity. Assistance may be provided throughout the activity or intermittently. 3-Partial/Moderate Assistance-helper does LESS THAN HALF the effort. [place] lifts, holds or supports trunk or limbs, but provides less than half the effort. 2-Substantial/Maximal Assistance-helper does MORE THAN HALF the effort. [place] lifts or holds trunk or limbs and provides more than half the effort. 7-Kdprtbopq-qwjzmj does ALL the effort. Patient does none of the effort to complete the activity. Or, the assistance of 2 or more helpers is required for the patient to complete the activity. If activity was not attempted, code reason: 7-Patient Refused. 9-Not Applicable-not attempted and the patient did not perform the activity before the current illness, exacerbation or injury. 10-Not Attempted due to Environmental Limitations-(lack of equipment, weather restraints, etc.). 88-Not Attempted due to Medical Conditions or Safety Concerns. Sit to Stand (QC): 3 Chair/Knr-bb-Qdvgj Xfer(QC): 3 Gait Training Distance: 60'x5 Walk 10 feet (QC): 3 Walk 50 ft with 2 Turns(QC): 3 Gait Assistive Device: Walker Alec Patient needs assist with balance and weight shifting, leans to the left side, patient has a lot of trouble turning to the left to turn and sit in a chair Exercises Also practiced cooking in the kitchen with OT while PT worked on walking about and balance during this activity. NuStep Minutes: 15 NuStep Workload: 4 Treatments PT worked on transfers, ambulation, balance activity, OT worked on cooking, UE positioning and safety during activity Assessment Current Status: Poor Progress no improvement in ambulation or balance PT Short Term Goals Short Term Goals Time Frame: December 18, 2020 Roll Left & Right: 4 Sit to lyin Lying to sitting on side of be: 4 Sit to stand: 3 Chair/kfr-nz-ookwu transfer: 3 Walk 10 feet: 3 Walk 50 feet with two turns: 3 PT Senior Safety Management Consultant Goals Senior Safety Management Consultant Goals PT Snf Goals Time Frame: Jan 01, 2021 Roll Left & Right (QC): 6 Sit to Lying (QC): 6 Lying-Sitting on Side/Bed(QC): 6 Sit to Stand (QC): 4 Chair/Poo-cs-Dlxip Xfer(QC): 4 Toilet Transfer (QC): 4 Car Transfer (QC): 4 Does the Patient Walk: Yes Walk 10 feet (QC): 4 Walk 50ft with 2 Turns (QC): 4 Walk 150 ft (QC): 88 Walking 10ft on Uneven Surface: 3 1 Step (curb) (QC): 3 4 Steps (QC): 88 12 Steps (QC): 88 Picking up an Object (QC): 88 Wheel 50 feet with 2 turns (QC: 5 Wheel 150 feet: 5 PT Plan Problem List Problem List: Activity Tolerance, Functional Strength, Safety, Balance, Gait, Transfer, Bed Mobility, ROM Treatment/Plan Treatment Plan: Continue Plan of Care Treatment Plan: Bed Mobility, Education, Functional Activity Helene, Functional Strength, Group Therapy, Gait, Safety, Therapeutic Exercise, Transfers Treatment Duration: Jan 01, 2021 Frequency: At least 5 of 7 days/Wk (IRF) Estimated Hrs Per Day: 1.5 hours per day Patient and/or Family Agrees t: Yes Safety Risks/Education Patient Education: Gait Training, Transfer Techniques, Correct Positioning, Safety Issues Teaching Recipient: Patient Teaching Methods: Demonstration, Discussion Response to Teaching: Reinforcement Needed Time/GCodes Time In: 0800 Time Out: 0900 Total Billed Treatment Time: 60 Total Billed Treatment 1 visit EX 15' FA 45' co-treated with OT from 0515-9121 BHARAT THOMAS PT Dec 23, 2020 10:15
--- NOTE | 2020-12-23 11:31 | Occupational Ther Daily Note ---
OT Current Status-Daily Note Subjective No pain reported. Appearance Pt. up with PT. Agrees to work with OT as well. Mental Status/Objective Patient Orientation: Person, Place, Time, Situation ADL-Treatment Therapy Code Descriptions/Definitions Functional [place] Measure: 0=Not Assessed/NA 4=Minimal Assistance 1=Total Assistance 5=Supervision or Setup 2=Maximal Assistance 6=Modified [place] 3=Moderate Assistance 7=Complete IndependenceSCALE: Activities may be completed with or without assistive devices. 7-Sasklqpgoq-fjassso completes the activity by him/herself with no assistance from a helper. 5-Set-up or Clean-up Assistance-helper sets up or cleans up; patient completes activity. [place] assists only prior to or following the activity. 4-Supervision or Touching Assistance-helper provides verbal cues and/or touching/steadying and/or contact guard assistance as patient completes activity. Assistance may be provided throughout the activity or intermittently. 3-Partial/Moderate Assistance-helper does LESS THAN HALF the effort. [place] lifts, holds or supports trunk or limbs, but provides less than half the effort. 2-Substantial/Maximal Assistance-helper does MORE THAN HALF the effort. [place] lifts or holds trunk or limbs and provides more than half the effort. 0-Cunpebvzl-oxcvfo does ALL the effort. Patient does none of the effort to complete the activity. Or, the assistance of 2 or more helpers is required for the patient to complete the activity. If activity was not attempted, code reason: 7-Patient Refused. 9-Not Applicable-not attempted and the patient did not perform the activity before the current illness, exacerbation or injury. 10-Not Attempted due to Environmental Limitations-(lack of equipment, weather restraints, etc.). 88-Not Attempted due to Medical Conditions or Safety Concerns. On/Off Footwear: 5 (Set up to doff/don slipper socks.) Toilet Transfer (QC): 3 (Min assist toward strong side.) Other Treatment Pt. begins OT treatment with co-treatment with OT/PT to practice high level kitchen task. PT focuses on dynamic standing balance with pt. at counter top. She is able to balance at counter after right UE is placed in counter. PT assists with min assists. Pt. is able to reach up into counter with right UE and retrieve oatmeal packet and bowl. OT has already retrieved water cup for her. Pt. is given 3 step instructions, and is able to open packet using hand and teeth, pour pack into bowl, pour water in, and scoot bowl on countertop toward microwave and place in microwave. Pt. able to complete with assistance for balance in stance. PT left and so OT assisted pt. to therapy gym with gucci cane and min assist. Pt. fatigued, and required increased time and several brief rest breaks. OT engages pt. in bilateral coordination tasks using left UE, as well as AROM and PROM UE activities. Tolerated treatment well. Limited AROM in right shoulder without fatigue and stress pain. However, pt. able to flex left elbow and extend actively. Transferred to mat and worked on bilateral UE balloon bat in all planes. Demonstrated good trunk coordination. Tolerated overall. Began to ambulate back to room, but pt. too fatigued. OT retrieved wheelchair. Taken to room and transferred to [facility]. Education OT Patient Education: Correct positioning, Exercise program, Modified ADL techniques, Progress toward Goal/Update tx plan, Purpose of tx/functional activities, Reviewed precautions, Rehab process, Transfer techniques Teaching Recipient: Patient Teaching Methods: Demonstration, Discussion Response to Teaching: Verbalize Understanding, Return Demonstration OT Short Term Goals Short Term Goals Time Frame: Dec 25, 2020 Eatin Oral hygiene: 3 Toileting hygiene: 3 Shower/bathe self: 3 Upper body dressin Lower body dressin Putting on/taking off footwear: 3 OT Manager Interventional Goals Fpc Goals Time Frame: Jan 08, 2021 Eating (QC): 6 Oral Hygiene (QC): 5 Toileting Hygiene (QC): 4 Shower/Bathe Self (QC): 4 Upper Body Dressing (QC): 5 Lower Body Dressing (QC): 4 On/Off Footwear (QC): 4 Additional Goals: 1-Demonstrate ADL Tasks, 2-Verbalize Understanding, 3- ImproveStrength/Helene 1=Demonstrate adherence to instructed precautions during ADL tasks. 2=Patient will verbalize/demonstrate understanding of assistive devices/modifications for ADL. 3=Patient will improve strength/tolerance for activity to enable patient to perform ADL's. OT Education/Plan Problem List/Assessment Assessment: Decreased Activ Tolerance, Impaired I ADL's, Impaired Self-Care Skills, Restricted Funct UE ROM Discharge Recommendations Plan/Recommendations: Continue POC Therapy Discharge Recommendati: Post Acute OT Treatment Plan/Plan of Care Treatment,Training & Education: Yes Patient would benefit from OT for education, treatment and training to promote independence in ADL's, mobility, safety and/or upper extremity function for ADL's. Plan of Care: ADL Retraining, Functional Mobility, Group Exercise/Act as Ind, UE Funct Exercise/Act Treatment Duration: Jan 08, 2021 Frequency: At least 5 of 7 days/Wk (IRF) Estimated Hrs Per Day: 1.5 hours per day Agreement: Yes Rehab Potential: Good Time/GCodes Start Time: 08:45 Stop Time: 10:00 Total Time Billed (hr/min): 75 Billed Treatment Time 0346-1824 1, ADL x 15minutes- Co-treat with PT [id number] ADL x 15minutes, FA x 45minutes MIGUEL CARRIZALES OT Dec 23, 2020 11:31
[2020-12-23] MEDS: ENOXAPARIN 40 MG/0.4 ML (LOVENOX) SYR SC SCH (12:32)
--- NOTE | 2020-12-23 13:14 | Physical Therapy Daily Note ---
PT Daily Note-Current Subjective Patient in recliner pre tx, agrees to PT, has no complaints of pain. Appearance Patient in recliner post tx with nurse call, phone, tray, all needs met, chair alarm on. Mental Status Patient Orientation: Person, Place, Situation Transfers SCALE: Activities may be completed with or without assistive devices. 6-Pholuncyww-xfuxaqv completes the activity by him/herself with no assistance from a helper. 5-Set-up or Clean-up Assistance-helper sets up or cleans up; patient completes activity. [place] assists only prior to or following the activity. 4-Supervision or Touching Assistance-helper provides verbal cues and/or touching/steadying and/or contact guard assistance as patient completes activity. Assistance may be provided throughout the activity or intermittently. 3-Partial/Moderate Assistance-helper does LESS THAN HALF the effort. [place] lifts, holds or supports trunk or limbs, but provides less than half the effort. 2-Substantial/Maximal Assistance-helper does MORE THAN HALF the effort. [place] lifts or holds trunk or limbs and provides more than half the effort. 0-Tzxpatouz-pjbqru does ALL the effort. Patient does none of the effort to complete the activity. Or, the assistance of 2 or more helpers is required for the patient to complete the activity. If activity was not attempted, code reason: 7-Patient Refused. 9-Not Applicable-not attempted and the patient did not perform the activity before the current illness, exacerbation or injury. 10-Not Attempted due to Environmental Limitations-(lack of equipment, weather restraints, etc.). 88-Not Attempted due to Medical Conditions or Safety Concerns. Exercises Seated Therapy Exercises: Ankle pumps, Hip flexion, Hamstring Curls, Hip abd/add (manually resisted) Seated Reps: 20 LAQ alternating for 5 min Treatments LE exercise Assessment Current Status: Fair Progress occasional rest break, uncoordinated on the left side PT Short Term Goals Short Term Goals Time Frame: December 18, 2020 Roll Left & Right: 4 Sit to lyin Lying to sitting on side of be: 4 Sit to stand: 3 Chair/rvi-aw-hdsbb transfer: 3 Walk 10 feet: 3 Walk 50 feet with two turns: 3 PT [employer] Consultant Goals Skilled Nursing Goals PT Skilled Nursing Goals Time Frame: Jan 01, 2021 Roll Left & Right (QC): 6 Sit to Lying (QC): 6 Lying-Sitting on Side/Bed(QC): 6 Sit to Stand (QC): 4 Chair/Zyq-iq-Dbouq Xfer(QC): 4 Toilet Transfer (QC): 4 Car Transfer (QC): 4 Does the Patient Walk: Yes Walk 10 feet (QC): 4 Walk 50ft with 2 Turns (QC): 4 Walk 150 ft (QC): 88 Walking 10ft on Uneven Surface: 3 1 Step (curb) (QC): 3 4 Steps (QC): 88 12 Steps (QC): 88 Picking up an Object (QC): 88 Wheel 50 feet with 2 turns (QC: 5 Wheel 150 feet: 5 PT Plan Problem List Problem List: Activity Tolerance, Functional Strength, Safety, Balance, Gait, Transfer, Bed Mobility, ROM Treatment/Plan Treatment Plan: Continue Plan of Care Treatment Plan: Bed Mobility, Education, Functional Activity Helene, Functional Strength, Group Therapy, Gait, Safety, Therapeutic Exercise, Transfers Treatment Duration: Jan 01, 2021 Frequency: At least 5 of 7 days/Wk (IRF) Estimated Hrs Per Day: 1.5 hours per day Patient and/or Family Agrees t: Yes Safety Risks/Education Patient Education: Correct Positioning, Safety Issues Teaching Recipient: Patient Teaching Methods: Demonstration, Discussion Response to Teaching: Reinforcement Needed Time/GCodes Time In: 1130 Time Out: 1145 Total Billed Treatment Time: 15 Total Billed Treatment 1 visit EX BHARAT SOSA PT Dec 23, 2020 13:14
[2020-12-23 20:00] VITALS: BP 149/65
[2020-12-23] MEDS: MELATONIN 3 MG TABLET PO SCH (20:32)
[2020-12-23] MEDS: polyethylene glycoL POWDER 17 GM (MIRALAX) PACK PO SCH (20:34)
--- NOTE | 2020-12-24 06:28 | PM&R Progress Note ---
Subjective HPI/CC On Admission Date Seen by Provider: Dec 24, 2020 Time Seen by Provider: 11:45 Subjective/Events-last exam 12/24/20: [facility] has accepted her will wait for Insurance approval DC tomorrow if insurance approves Was a little bit dizzy today and she is on Claritin for her allergies She has really plateaued not really increasing any strength 12/23/20: Pt doing pretty well Daughter was very irritated with everyone on the care team for unknown reason. She appears to be very overwhelmed and trying to manage everything with her mom. Will try to be supportive and understanding but she was very rude to me and social working and everyone on the care team. 12/22/2020: Patient doing really well Daughter at the bedside Labs good Walking with a hemicane Overall doing pretty well but has plateaued 12/21/2020 Patient much improved Tired a bit Son tried to come in to disturb her to get the apartment chambers at 11:00 so she did not sleep well 12/20/2020: No major issues today Has some allergies so we will start Claritin No falls Continues to work with therapy 12/19/20: Pt doing pretty well BP a bit low so will DC Lisinopril per cardiology Bowels moved two days ago Overall feels really good 12/18/20: Patient doing well Plateaued in PT Needs NHP 12/17/20: Pt doing pretty well Still requiring a bedside commode and two people assist DC telemetry Bowels are moving okay Softer stools noted 12/16/20: Pt doing really well Telemetry noted, HR of 30s but on assessment it was 78 Decreasing BP medications Bowels moved yesterday 12/15/20: Pt doing pretty well Had a BM yesterday but it was hard Had a bloody nose so I will start nasal spray Overall no major concerns 12/14/20: Patient denies any issues No pain reported BM+ 12/13/20: Patient doing well Having some abdominal cramps from laxatives No other issues reported Tearful at times Doing well with thin liquids 12/12/20: Pt doing okay but a little bit tired Decreased stamina from the stroke No BM so laxatives will be given, this is the third day without a BM 12/11/20: Pt settling in well today Doing very well Taking pills okay Feeds herself Flaccidity on the left side noted Bowels moved two days ago Review of Systems Neurological: Weakness, Incoordination Objective Exam Vital Signs Vital Signs Date Time Temp Pulse Resp B/P (MAP) Pulse Ox O2 Delivery O2 Flow Rate FiO2 12/24/20 21:00 Room Air 12/24/20 20:00 36.6 74 18 106/53 (70) 12/24/20 08:47 96 2.00 Capillary Refill : General Appearance: No Apparent Distress, WD/WN, Chronically ill, Thin HEENT: PERRL/EOMI, Normal ENT Inspection, Pharynx Normal Neck: Full Range of Motion, Normal Inspection, Non Tender, Supple, Carotid B ruit Respiratory: Chest Non Tender, Lungs Clear, Normal Breath Sounds, No Accessory Muscle Use, No Respiratory Distress Cardiovascular: Regular Rate, Rhythm, No Edema, No Gallop, No JVD, No Murmur, Normal Peripheral Pulses Gastrointestinal: Normal Bowel Sounds, No Organomegaly, No Pulsatile Mass, Non Tender, Soft Back: Normal Inspection, No CVA Tenderness, No Vertebral Tenderness Extremity: Normal Capillary Refill, Normal Inspection, Normal Range of Motion, Non Tender, No Calf Tenderness, No Pedal Edema Neurologic/Psychiatric: Alert, Oriented x3, Abnormal Gait, Aphasia, Depressed Affect, Facial Droop, Motor Weakness (left sided flaccidity) Skin: Normal Color, Warm/Dry Lymphatic: No Adenopathy Results/Procedures Lab Patient resulted labs reviewed. FIM Transfers Therapy Code Descriptions/Definitions Functional [place] Measure: 0=Not Assessed/NA 4=Minimal Assistance 1=Total Assistance 5=Supervision or Setup 2=Maximal Assistance 6=Modified [place] 3=Moderate Assistance 7=Complete IndependenceSCALE: Activities may be completed with or without assistive devices. 6-Csxvjerazi-drgplxl completes the activity by him/herself with no assistance from a helper. 5-Set-up or Clean-up Assistance-helper sets up or cleans up; patient completes activity. [place] assists only prior to or following the activity. 4-Supervision or Touching Assistance-helper provides verbal cues and/or touching/steadying and/or contact guard assistance as patient completes activity. Assistance may be provided throughout the activity or intermittently. 3-Partial/Moderate Assistance-helper does LESS THAN HALF the effort. [place] lifts, holds or supports trunk or limbs, but provides less than half the effort. 2-Substantial/Maximal Assistance-helper does MORE THAN HALF the effort. [place] lifts or holds trunk or limbs and provides more than half the effort. 3-Gogyaczzc-ddlbtr does ALL the effort. Patient does none of the effort to complete the activity. Or, the assistance of 2 or more helpers is required for the patient to complete the activity. If activity was not attempted, code reason: 7-Patient Refused. 9-Not Applicable-not attempted and the patient did not perform the activity before the current illness, exacerbation or injury. 10-Not Attempted due to Environmental Limitations-(lack of equipment, weather restraints, etc.). 88-Not Attempted due to Medical Conditions or Safety Concerns. Roll Left to Right (QC): 4 Sit to Lying (QC): 3 Sit to Stand (QC): 3 Chair/Qbi-uw-Toabf Xfer(QC): 3 Car Transfer (QC): 3 Gait Training Does the Patient Walk?: Yes Distance: 60'x5 Walk 10 feet (QC): 3 Walk 50 ft with 2 Turns(QC): 3 Walk 150 ft (QC): 88 Walking 10ft/uneven surface-QC: 88 Gait Persons Needed: 1 Gait Assistive Device: Walker Alec Wheelchair Training Does the Pt Use a Wheelchair?: Yes Distance: 50' Wheel 50 ft with 2 turns (QC): 4 Wheel 150 ft (QC): 5 Type of Wheelchair: Manual Stair Training 1 Step (curb) (QC): 88 4 Steps (QC): 88 12 Steps (QC): 88 Balance Picking up an Object (QC): 88 ADL-Treatment Eating (QC): 5 Oral Hygiene (QC): 4 (SBA with adapted toothbrush for dentures.) Bathing Location: L Arm, R Arm, L Upper Leg, R Upper Leg, Chest, Abdomen, Buttocks, Perineal Area Shower/Bathe Self (QC): 4 (CGA seated on shower chair with cut out.) Upper Body Dressing (QC): 3 (Mod assist to don long sleeve shirt.) Lower Body Dressing (QC): 3 (Mod assist overall. Pt. able to thread pants in shower room. Pt. 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 HTN HLP h/o breast cancer Smoker s/p loop recorder 12/18/20 Plan: Aggressive rehab Walker with platform Monitor closely 12/11/20: Monitor BP Cardiology consultation 12/12/20: BM regimen Fall risk 12/13/20: Monitor O2 BP management Cardiology appreciated 12/14/20: Improved status Monitor closely 12/15/20: Monitor closely BP monitored 12/16/20: Monitor BP Monitor Tely 12/17/20: Monitor closely Recheck next week 12/18/20: Monitor closely BP monitor Loop recorder 12/19/20: NHP will be needed Monitor BP 12/20/2020: Monitor for falls Claritin for allergies 12/21/2020 Monitor closely Fall risk 12/22/2020: Monitor closely Plan for discharge sometime this week likely half-way 12/23/20: DC planning Support for daughter who seems very overwhelmed 12/24/20: NHP once insurance approves (1) Acute CVA (cerebrovascular accident) Status: Acute (2) HTN (hypertension) Status: Acute (3) HLD (hyperlipidemia) Status: Acute MOHIT BOYKIN DO Dec 24, 2020 06:28
[2020-12-24] MEDS: MULTIVIT W/MINERALS TAB (THERAGRAN M) PO SCH (06:32)
[2020-12-24] MEDS: CYANOCOBALAMIN 1,000 MCG (VITAMIN B-12) TABLET PO SCH (06:32)
[2020-12-24 08:47] VITALS: BP 131/62
--- NOTE | 2020-12-24 08:54 | Physical Therapy Daily Note ---
PT Daily Note-Current Subjective Patient in recliner pre tx, agrees to PT, has no complaints of pain but states she feels weak today, O2 was 96%, 76bpm, BP was 131/62 Appearance Patient in recliner post tx with nurse call, phone, tray, chair alarm on. Mental Status Patient Orientation: Person, Place, Situation Transfers SCALE: Activities may be completed with or without assistive devices. 7-Cfwmzbpvcd-lbofdnw completes the activity by him/herself with no assistance from a helper. 5-Set-up or Clean-up Assistance-helper sets up or cleans up; patient completes activity. [place] assists only prior to or following the activity. 4-Supervision or Touching Assistance-helper provides verbal cues and/or touching/steadying and/or contact guard assistance as patient completes activity. Assistance may be provided throughout the activity or intermittently. 3-Partial/Moderate Assistance-helper does LESS THAN HALF the effort. [place] lifts, holds or supports trunk or limbs, but provides less than half the effort. 2-Substantial/Maximal Assistance-helper does MORE THAN HALF the effort. [place] lifts or holds trunk or limbs and provides more than half the effort. 8-Ygktftigx-tbwxmz does ALL the effort. Patient does none of the effort to complete the activity. Or, the assistance of 2 or more helpers is required for the patient to complete the activity. If activity was not attempted, code reason: 7-Patient Refused. 9-Not Applicable-not attempted and the patient did not perform the activity before the current illness, exacerbation or injury. 10-Not Attempted due to Environmental Limitations-(lack of equipment, weather restraints, etc.). 88-Not Attempted due to Medical Conditions or Safety Concerns. Roll Left & Right (QC): 4 Sit to Lying (QC): 4 Lying to Sitting/Side of Bed(Q: 4 Sit to Stand (QC): 3 Chair/Xjc-ye-Cirda Xfer(QC): 3 Toilet Transfer (QC): 3 Car Transfer (QC): 3 Patient performs bed mobility and supine <-> sit with SBA, sit <-> stand min assist, transfers to the right with CGA but to the left with min/mod assist, car transfer min/mod assist. Patient often needs cues for hand placement and safety when sitting from a standing position. Gait Training Does the Patient Walk?: Yes Distance: 60', 20' Walk 10 feet (QC): 3 Walk 50 ft with 2 Turns(QC): 3 Walk 150 ft (QC): 88 Walking 10ft/uneven surface-QC: 3 Gait Persons Needed: 1 Gait Assistive Device: Walker Alec Patient can ambulate 60' with a hemiwalker with min/mod assist (including 50' with at least 2 turns of 90 degrees and 10' over an uneven surface). Patient needs assist with balance and weight shifting, has difficulty advancing her left leg but that and her balance have improved during her stay. Wheelchair Training Does the Pt Use a Wheelchair?: Yes Wheel 50 ft with 2 turns (QC): 4 Wheel 150 ft (QC): 4 Type of Wheelchair: Manual SBA Stair Training Stair Training: Handrails/: uses cane (hemiwalker) #of Steps: 1 1 Step (curb) (QC): 3 4 Steps (QC): 88 12 Steps (QC): 88 Stairs: Pattern: Step to Balance Picking up an Object (QC): 88 Exercises NuStep Minutes: 15 NuStep Workload: 4 Treatments bed mobility and transfers, ambulation, WC mobility, functional strengthening, stair training Assessment Current Status: Poor Progress Patient has made progress overall during her stay but progress has slowed and patient may have reached a plateau for now. PT Short Term Goals Short Term Goals Time Frame: December 18, 2020 Roll Left & Right: 4 Sit to lyin Lying to sitting on side of be: 4 Sit to stand: 3 Chair/htr-jj-ntwzp transfer: 3 Walk 10 feet: 3 Walk 50 feet with two turns: 3 PT Strategic Planning Consultant Goals Strategic Planning Consultant Goals PT [facility]sp Goals Time Frame: Jan 01, 2021 Roll Left & Right (QC): 6 Sit to Lying (QC): 6 Lying-Sitting on Side/Bed(QC): 6 Sit to Stand (QC): 4 Chair/Uyt-kp-Hrviv Xfer(QC): 4 Toilet Transfer (QC): 4 Car Transfer (QC): 4 Does the Patient Walk: Yes Walk 10 feet (QC): 4 Walk 50ft with 2 Turns (QC): 4 Walk 150 ft (QC): 88 Walking 10ft on Uneven Surface: 3 1 Step (curb) (QC): 3 4 Steps (QC): 88 12 Steps (QC): 88 Picking up an Object (QC): 88 Wheel 50 feet with 2 turns (QC: 5 Wheel 150 feet: 5 PT Plan Problem List Problem List: Activity Tolerance, Functional Strength, Safety, Balance, Gait, Transfer, Bed Mobility, ROM Treatment/Plan Treatment Plan: Continue Plan of Care Treatment Plan: Bed Mobility, Education, Functional Activity Helene, Functional Strength, Group Therapy, Gait, Safety, Therapeutic Exercise, Transfers Treatment Duration: Jan 01, 2021 Frequency: At least 5 of 7 days/Wk (IRF) Estimated Hrs Per Day: 1.5 hours per day Patient and/or Family Agrees t: Yes Safety Risks/Education Patient Education: Gait Training, Transfer Techniques, Steps, Correct Positioning, Safety Issues Teaching Recipient: Patient Teaching Methods: Demonstration, Discussion Response to Teaching: Reinforcement Needed Time/GCodes Time In: 0800 Time Out: 0900 Total Billed Treatment Time: 60 Total Billed Treatment 1 visit EX 15' FA 45' BHARAT THOMAS PT Dec 24, 2020 08:54
--- NOTE | 2020-12-24 09:21 | Cardiology Progress Note ---
Subjective Date Seen by Provider: Dec 24, 2020 Time Seen by Provider: 08:25 Subjective/Events-last exam Patient sitting up in chair, no new complaints. Denies any chest pain or dys pnea. Objective-Cardiology Exam Last Set of Vital Signs Vital Signs 12/24/20 12/24/20 08:47 09:28 Temp 36.3 Pulse 76 Resp 18 B/P (MAP) 131/62 (85) Pulse Ox 96 O2 Delivery Room Air O2 Flow Rate 2.00 Capillary Refill : General: Alert, Oriented X3, Cooperative HEENT: Atraumatic, PERRLA Neck: Supple, No JVD Lungs: Clear to Auscultation, Normal Air Movement Heart: Regular Rate, Normal S1, Normal S2 Abdomen: Normal Bowel Sounds, Soft Extremities: No Clubbing, No Cyanosis Skin: No Rashes Neuro: Normal Gait, Normal Speech Psych/Mental Status: Mental Status NL A/P-Cardiology Admission Diagnosis Cryptogenic stroke HTN HLD Assessment/Plan Cryptogenic stroke - MRI showed posterior R frontal lobe stroke possibly in splenium of corpus collosum, Status post loop recorder implant. Continue to monitor for arrhythmia Hypertension, controlled, continue to monitor. Hyperlipidemia started on Lipitor. Monitor lipids General debility/weakness - PT/OT with IRF, lovenox for DVT prophylaxis History of breast cancer. In remission Tobaccoism, educated on smoking cessation Supervisory-Addendum Brief Supervisory Addendum Participated in pt care: history, MDM, physical Personally performed: exam, history, MDM Care discussed with: ETTA HENSON Dec 24, 2020 9:21 am DOROTHY RIVERA MD Dec 24, 2020 6:01 pm
[2020-12-24] MEDS: ASPIRIN E.C. 81 MG (ECOTRIN) TAB PO SCH (09:46)
[2020-12-24] MEDS: DOCUSATE SODIUM 100 MG (COLACE) CAP PO SCH ×2 (09:46→21:24)
[2020-12-24] MEDS: NYSTATIN ORAL SUSP 5 ML UDC PO SCH ×4 (09:46→21:24)
[2020-12-24] MEDS: NICOTINE 14 MG (NICODERM) PATCH TD SCH (09:46)
[2020-12-24] MEDS: LORATADINE (CLARITIN) 10 MG TAB PO SCH (09:46)
[2020-12-24] MEDS: SENNA W/DOCUSATE (SENOKOT S) TABLET PO SCH ×2 (09:46→21:24)
[2020-12-24] MEDS: CALCIUM CARBONATE 600 MG (CALCARB) TAB PO SCH (09:46)
[2020-12-24] MEDS: NICOTINE PATCH REMOVAL TP SCH (09:55)
[2020-12-24] MEDS: ENOXAPARIN 40 MG/0.4 ML (LOVENOX) SYR SC SCH (10:00)
--- NOTE | 2020-12-24 10:02 | Occupational Ther Daily Note ---
OT Current Status-Daily Note Subjective No pain reported, but pt. states that she feels weak this a.m. Appearance Pt. up in chair. Agrees to shower. Mental Status/Objective Patient Orientation: Person, Place, Time, Situation ADL-Treatment Therapy Code Descriptions/Definitions Functional [place] Measure: 0=Not Assessed/NA 4=Minimal Assistance 1=Total Assistance 5=Supervision or Setup 2=Maximal Assistance 6=Modified [place] 3=Moderate Assistance 7=Complete IndependenceSCALE: Activities may be completed with or without assistive devices. 4-Jiplykbiwy-eesmsxv completes the activity by him/herself with no assistance from a helper. 5-Set-up or Clean-up Assistance-helper sets up or cleans up; patient completes activity. [place] assists only prior to or following the activity. 4-Supervision or Touching Assistance-helper provides verbal cues and/or touching/steadying and/or contact guard assistance as patient completes activity. Assistance may be provided throughout the activity or intermittently. 3-Partial/Moderate Assistance-helper does LESS THAN HALF the effort. [place] lifts, holds or supports trunk or limbs, but provides less than half the effort. 2-Substantial/Maximal Assistance-helper does MORE THAN HALF the effort. [place] lifts or holds trunk or limbs and provides more than half the effort. 7-Sbkgbyoyq-bwvgom does ALL the effort. Patient does none of the effort to complete the activity. Or, the assistance of 2 or more helpers is required for the patient to complete the activity. If activity was not attempted, code reason: 7-Patient Refused. 9-Not Applicable-not attempted and the patient did not perform the activity before the current illness, exacerbation or injury. 10-Not Attempted due to Environmental Limitations-(lack of equipment, weather restraints, etc.). 88-Not Attempted due to Medical Conditions or Safety Concerns. Eating (QC): 5 Oral Hygiene (QC): 5 (Set up seated at sink.) Shower/Bathe Self (QC): 3 (Min assist to wash rear [place] area in shower.) Upper Body Dressing (QC): 3 (Min assist to don shirt.) Lower Body Dressing (QC): 3 (Mod assist in stance to don pants over hips.) On/Off Footwear: 3 (Mod assist) Toileting Hygiene (QC): 3 Toilet Transfer (QC): 3 (Min assist) Education OT Patient Education: Correct positioning, Modified ADL techniques, Progress toward Goal/Update tx plan, Purpose of tx/functional activities, Reviewed pre cautions, Rehab process, Transfer techniques Teaching Recipient: Patient Teaching Methods: Demonstration, Discussion Response to Teaching: Verbalize Understanding, Return Demonstration OT Short Term Goals Short Term Goals Time Frame: Dec 25, 2020 Eatin Oral hygiene: 3 Toileting hygiene: 3 Shower/bathe self: 3 Upper body dressin Lower body dressin Putting on/taking off footwear: 3 OT [employer] Starter [employer] Ranger Goals [employer] Goals Time Frame: Jan 08, 2021 Eating (QC): 6 Oral Hygiene (QC): 5 Toileting Hygiene (QC): 4 Shower/Bathe Self (QC): 4 Upper Body Dressing (QC): 5 Lower Body Dressing (QC): 4 On/Off Footwear (QC): 4 Additional Goals: 1-Demonstrate ADL Tasks, 2-Verbalize Understanding, 3- ImproveStrength/Helene 1=Demonstrate adherence to instructed precautions during ADL tasks. 2=Patient will verbalize/demonstrate understanding of assistive devices/modifications for ADL. 3=Patient will improve strength/tolerance for activity to enable patient to perform ADL's. OT Education/Plan Problem List/Assessment Assessment: Decreased Activ Tolerance, Decreased UE Strength, Dependent Transfers, Impaired Bed Mobility, Impaired Coordination, Impaired Funct Balance, Impaired I ADL's, Impaired Self-Care Skills, Restricted Funct UE ROM Discharge Recommendations Plan/Recommendations: Continue POC Therapy Discharge Recommendati: 24 Hour Supervision, Post Acute OT Treatment Plan/Plan of Care Treatment,Training & Education: Yes Patient would benefit from OT for education, treatment and training to promote independence in ADL's, mobility, safety and/or upper extremity function for ADL's. Plan of Care: ADL Retraining, Functional Mobility, Group Exercise/Act as Ind, UE Funct Exercise/Act Treatment Duration: Jan 08, 2021 Frequency: At least 5 of 7 days/Wk (IRF) Estimated Hrs Per Day: 1.5 hours per day Agreement: Yes Rehab Potential: Good Time/GCodes Start Time: 09:00 Stop Time: 10:00 Total Time Billed (hr/min): 60 Billed Treatment Time 1, ADL x 60minutes MIGUEL CARRIZALES OT Dec 24, 2020 10:02
--- NOTE | 2020-12-24 11:00 | Speech Therapy Daily Note ---
Speech Daily Progress Note Subjective Date Seen by Provider: Dec 24, 2020 Time Seen by Provider: 00:30 Patient was resting in her bed following her other therapies when I entered her room. Objective Patient completed a series of memory tasks related to her routine in therapy with 75% given 20% verbal cuing. Assessment Assessment Current Status: Good Progress Treatment Plan Continue Plan of Care Speech Short Term Goals Short Term Goals Short Term Goals 1) Patient will complete safety awareness tasks related to her daily needs at 80% or greater with minimal cues. 2) Patient will complete speech tasks at 80% or greater with minimal cues. 3) Patient will complete safe oral intake at 90% or greater with least restrictive diet. 4) Patient will utilize compensatory strategies for safe intake at 90% or greater. Speech Chcf Goals Director Of Maintenance Goals Patient will improve cognitive-communication abilities in order to complete daily living tasks with minimal assist. Patient will maintain adequate nutrition/hydration via safe effective swallow function. Speech-Plan Patient/Family Goals Patient/Family Goals: Patient will discharge to a SNF upon insurance approval. Treatment Plan Speech Therapy Treatment Plan: Continue Plan of Care Treatment Duration: Dec 26, 2020 Frequency: 4 times per week (Patient will receive skilled ST 4-5x per week) Estimated Hrs Per Day: .5 hour per day Rehab Potential: Good Barriers to Learning: Patient's recent CVA, memory deficit, age Pt/Family Agrees to Plan: Yes Safety Risks/Education Teaching Recipient: Patient Teaching Methods: Demonstration, Discussion Response to Teaching: Verbalize Understanding, Return Demonstration Education Topics Provided: Continued safety within her room and upon discharge, continued safety with oral intake of modified diet Time Speech Therapy Time In: 10:00 Speech Therapy Time Out: 10:30 Total Billed Time: 30 Billed Treatment Time 1, KARLIE, ARNULFO MARTINEZ Dec 24, 2020 11:00
--- NOTE | 2020-12-24 14:25 | Therapy Group Daily Note ---
Therapy Daily Group Note Patient Education Topic Exercises, ADL Exercises LE Seated Exercise, UE Exercise Session Ratio (pt:therapist): 4:1 Goal of Session: UE/LE Strengthing, Use of Adaptive Equipment Goal Met for this Session: Yes Pt Benefit of Group: Contributions to Others, F/U Use of Strategies @Home, Increased Functional Safety, Increased Functional Strength, Improved Cognition, Recognition of Peers, Socialization Other/Notes Pt propelled w/c to therapy gym for OT group. Group consisted of introductions (name, place living, favorite food), socialization, B UE/LE seated theraband exercises, educational topics of exercise and AE for dressing. Pt introduced self appropriately and actively listened to peers. Pt able to completed exercises with minimal modifications due to limited L UE movement. Completed 4 exercises 1 set 10 reps each. Pt acknowledged understanding of educational topics by giving own strategies and attempting tasks with equipment available. After session, pt lying in bed with call light/phone in reach. All needs met in room. Start Time: 13:00 Stop Time: 14:00 Total Billed Treatment Time: 60 Total Billed Treatment 1-ED SEPULVEDA Dec 24, 2020 14:25
[2020-12-24] MEDS: polyethylene glycoL POWDER 17 GM (MIRALAX) PACK PO SCH (19:47)
[2020-12-24 20:00] VITALS: BP 106/53
[2020-12-24] MEDS: MELATONIN 3 MG TABLET PO SCH (21:24)
--- NOTE | 2020-12-25 05:34 | PM&R Progress Note ---
Subjective HPI/CC On Admission Date Seen by Provider: Dec 25, 2020 Time Seen by Provider: 12:30 Subjective/Events-last exam 12/25/2020: Discharge is planned when insurance approves No major issues No pain is reported 12/24/20: [facility] has accepted her will wait for Insurance approval DC tomorrow if insurance approves Was a little bit dizzy today and she is on Claritin for her allergies She has really plateaued not really increasing any strength 12/23/20: Pt doing pretty well Daughter was very irritated with everyone on the care team for unknown reason. She appears to be very overwhelmed and trying to manage everything with her mom. Will try to be supportive and understanding but she was very rude to me and social working and everyone on the care team. 12/22/2020: Patient doing really well Daughter at the bedside Labs good Walking with a hemicane Overall doing pretty well but has plateaued 12/21/2020 Patient much improved Tired a bit Son tried to come in to disturb her to get the apartment chambers at 11:00 so she did not sleep well 12/20/2020: No major issues today Has some allergies so we will start Claritin No falls Continues to work with therapy 12/19/20: Pt doing pretty well BP a bit low so will DC Lisinopril per cardiology Bowels moved two days ago Overall feels really good 12/18/20: Patient doing well Plateaued in PT Needs NHP 12/17/20: Pt doing pretty well Still requiring a bedside commode and two people assist DC telemetry Bowels are moving okay Softer stools noted 12/16/20: Pt doing really well Telemetry noted, HR of 30s but on assessment it was 78 Decreasing BP medications Bowels moved yesterday 12/15/20: Pt doing pretty well Had a BM yesterday but it was hard Had a bloody nose so I will start nasal spray Overall no major concerns 12/14/20: Patient denies any issues No pain reported BM+ 12/13/20: Patient doing well Having some abdominal cramps from laxatives No other issues reported Tearful at times Doing well with thin liquids 12/12/20: Pt doing okay but a little bit tired Decreased stamina from the stroke No BM so laxatives will be given, this is the third day without a BM 12/11/20: Pt settling in well today Doing very well Taking pills okay Feeds herself Flaccidity on the left side noted Bowels moved two days ago Review of Systems General: Fatigue, Malaise Objective Exam Vital Signs Vital Signs Date Time Temp Pulse Resp B/P (MAP) Pulse Ox O2 Delivery O2 Flow Rate FiO2 12/25/20 20:40 36.4 78 18 120/58 (78) 96 Room Air 12/24/20 08:47 2.00 Capillary Refill : General Appearance: No Apparent Distress, WD/WN, Chronically ill, Thin HEENT: PERRL/EOMI, Normal ENT Inspection, Pharynx Normal Neck: Full Range of Motion, Normal Inspection, Non Tender, Supple, Carotid Bruit Respiratory: Chest Non Tender, Lungs Clear, Normal Breath Sounds, No Accessory Muscle Use, No Respiratory Distress Cardiovascular: Regular Rate, Rhythm, No Edema, No Gallop, No JVD, No Murmur, Normal Peripheral Pulses Gastrointestinal: Normal Bowel Sounds, No Organomegaly, No Pulsatile Mass, Non Tender, Soft Back: Normal Inspection, No CVA Tenderness, No Vertebral Tenderness Extremity: Normal Capillary Refill, Normal Inspection, Normal Range of Motion, Non Tender, No Calf Tenderness, No Pedal Edema Neurologic/Psychiatric: Alert, Oriented x3, Abnormal Gait, Aphasia, Depressed Affect, Facial Droop, Motor Weakness (left sided flaccidity) Skin: Normal Color, Warm/Dry Lymphatic: No Adenopathy Results/Procedures Lab Patient resulted labs reviewed. FIM Transfers Therapy Code Descriptions/Definitions Functional [place] Measure: 0=Not Assessed/NA 4=Minimal Assistance 1=Total Assistance 5=Supervision or Setup 2=Maximal Assistance 6=Modified [place] 3=Moderate Assistance 7=Complete IndependenceSCALE: Activities may be completed with or without assistive devices. 6-Bgaozpijgg-ezfiqnm completes the activity by him/herself with no assistance from a helper. 5-Set-up or Clean-up Assistance-helper sets up or cleans up; patient completes activity. [place] assists only prior to or following the activity. 4-Supervision or Touching Assistance-helper provides verbal cues and/or t ouching/steadying and/or contact guard assistance as patient completes activity. Assistance may be provided throughout the activity or intermittently. 3-Partial/Moderate Assistance-helper does LESS THAN HALF the effort. [place] lifts, holds or supports trunk or limbs, but provides less than half the effort. 2-Substantial/Maximal Assistance-helper does MORE THAN HALF the effort. [place] lifts or holds trunk or limbs and provides more than half the effort. 1-Pjexkoopn-unuwjx does ALL the effort. Patient does none of the effort to complete the activity. Or, the assistance of 2 or more helpers is required for the patient to complete the activity. If activity was not attempted, code reason: 7-Patient Refused. 9-Not Applicable-not attempted and the patient did not perform the activity before the current illness, exacerbation or injury. 10-Not Attempted due to Environmental Limitations-(lack of equipment, weather restraints, etc.). 88-Not Attempted due to Medical Conditions or Safety Concerns. Roll Left to Right (QC): 4 Sit to Lying (QC): 4 Sit to Stand (QC): 3 Chair/Llk-lj-Steth Xfer(QC): 3 Car Transfer (QC): 3 Gait Training Does the Patient Walk?: Yes Distance: 60', 20' Walk 10 feet (QC): 3 Walk 50 ft with 2 Turns(QC): 3 Walk 150 ft (QC): 88 Walking 10ft/uneven surface-QC: 3 Gait Persons Needed: 1 Gait Assistive Device: Walker Alec Wheelchair Training Does the Pt Use a Wheelchair?: Yes Distance: 50' Wheel 50 ft with 2 turns (QC): 4 Wheel 150 ft (QC): 4 Type of Wheelchair: Manual Stair Training Stair Training: Handrails/: uses cane (hemiwalker) #of Steps: 1 1 Step (curb) (QC): 3 4 Steps (QC): 88 12 Steps (QC): 88 Stairs: Pattern: Step to Balance Picking up an Object (QC): 88 ADL-Treatment Eating (QC): 5 Oral Hygiene (QC): 5 (Set up seated at sink.) Bathing Location: L Arm, R Arm, L Upper Leg, R Upper Leg, Chest, Abdomen, Buttocks, Perineal Area Shower/Bathe Self (QC): 3 (Min assist to wash rear [place] area in shower.) Upper Body Dressing (QC): 3 (Min assist to don shirt.) Lower Body Dressing (QC): 3 (Mod assist in stance to don pants over hips.) On/Off Footwear (QC): 3 (Mod assist) Toileting Hygiene (QC): 3 Toilet Transfer (QC): 3 (Min assist) Assessment/Plan Assessment and Plan Assess & Plan/Chief Complaint Assessment: 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 HTN HLP h/o breast cancer Smoker s/p loop recorder 12/18/20 Plan: Aggressive rehab Walker with platform Monitor closely 12/11/20: Monitor BP Cardiology consultation 12/12/20: BM regimen Fall risk 12/13/20: Monitor O2 BP management Cardiology appreciated 12/14/20: Improved status Monitor closely 12/15/20: Monitor closely BP monitored 12/16/20: Monitor BP Monitor Tely 12/17/20: Monitor closely Recheck next week 12/18/20: Monitor closely BP monitor Loop recorder 12/19/20: NHP will be needed Monitor BP 12/20/2020: Monitor for falls Claritin for allergies 12/21/2020 Monitor closely Fall risk 12/22/2020: Monitor closely Plan for discharge sometime this week [facility] 12/23/20: DC planning Support for daughter who seems very overwhelmed 12/24/20: NHP once insurance approves 01/21/2021: Discharge is planned once insurance approves alf at discharge (1) Acute CVA (cerebrovascular accident) Status: Acute (2) HTN (hypertension) Status: Acute (3) HLD (hyperlipidemia) Status: Acute MOHIT BOYKIN DO Dec 25, 2020 05:34
[2020-12-25] MEDS ORDERED: LORA-404 PO (05:36)
[2020-12-25] MEDS ORDERED: ZOLP5TAB7 PO (05:36)
[2020-12-25] MEDS ORDERED: SODI44SP2 (05:36)
[2020-12-25] MEDS ORDERED: LORA10TA7 PO (05:36)
--- NOTE | 2020-12-25 05:37 | Discharge Inst-Skilled Nursing ---
Discharge Inst-Skilled NF Reconcile Patient Problems Problems Reviewed?: Yes Patient Instructions Patient Problems: CVA Goal: Prentiss Consult/Follow Up/Orders Follow Up Appt.: [facility] 1 week Skilled NF Admit to: Certification (SNF) I certify that SNF services are required to be given on an inpatient basis because of the above named patient's need for nursing home care on a continuing basis for the conditions(s) for which he/she was receiving inpatient hospital services prior to his/her transfer to the SNF. Intermediate Facility Order: Nursing Services, Used Car Make Ready Worker-Evaluate & Treat, Physical Therapy-Evaluate & Treat, Speech Language-Evaluate & Treat Oxygen Delivery Method: Room Air Discharge Diet: No Restrictions Resuscitation Status: Full Code New & Resume Previous Orders New Medications: Lorazepam (Ativan) 0.5 Mg Tablet 0.5 MG PO TID PRN for ANXIETY, #15 TAB Loratadine (Loratadine) 10 Mg Tablet 10 MG PO DAILY for 30 Days, TAB Sodium Chloride (Deep Sea) 44 Ml [place] 0 ML NA NEEDED PRN for DRY NOSE for 30 Days, SPRAY Continued Medications: Aspirin (Aspirin EC) 81 Mg Tablet.dr 81 MG PO DAILY for 365 Days, TAB Atorvastatin Calcium (Atorvastatin Calcium) 80 Mg Tablet 80 MG PO HS for 365 Days, TAB Calcium Carbonate (Calcium) 600 Mg Tablet 600 MG PO DAILY, TAB Citalopram Hydrobromide (Citalopram HBr) 10 Mg Tablet 10 MG PO DAILY for 365 Days, TAB Cyanocobalamin (Vitamin B-12) (Vitamin B-12) 500 Mcg Tablet 500 MCG PO DAILY, TAB Enoxaparin Sodium (Enoxaparin Sodium) 40 Mg/0.4 Ml Syringe 40 MG SC DAILY@1100 for 7 Days, SYRINGE Multivits-Min/Iron/FA/Lutein (Centrum Silver Women Tablet) 1 Each Tablet 1 EACH PO DAILY, TAB Nicotine (Nicoderm Cq) 1 Each Patch.td24 14 MG TD DAILY@0900 for 30 Days, PATCH Zolpidem Tartrate (Zolpidem Tartrate) 5 Mg Tablet 5 MG PO HS PRN for INSOMNIA, #15 TAB (This prescription has been renewed) Discontinued Medications: Lisinopril (Lisinopril) 20 Mg Tablet 20 MG PO DAILY@0900 for 365 Days, TAB [Lorazepam] () 0.5 MG TABLET 0.5 MG PO Q8H PRN for ANXIETY for 7 Days, TAB Nystatin (Nystatin) 100,000 Unit/1 Ml Oral.susp 5 ML PO QID for 7 Days, ML Le Feng Dec 25, 2020 05:36 LE FENG DO Dec 25, 2020 05:37
[2020-12-25] MEDS: CYANOCOBALAMIN 1,000 MCG (VITAMIN B-12) TABLET PO SCH (06:41)
[2020-12-25] MEDS: MULTIVIT W/MINERALS TAB (THERAGRAN M) PO SCH (06:41)
[2020-12-25] MEDS: NICOTINE 14 MG (NICODERM) PATCH TD SCH (07:52)
[2020-12-25] MEDS: SENNA W/DOCUSATE (SENOKOT S) TABLET PO SCH ×2 (07:52→21:27)
[2020-12-25] MEDS: NICOTINE PATCH REMOVAL TP SCH (07:53)
[2020-12-25] MEDS: CALCIUM CARBONATE 600 MG (CALCARB) TAB PO SCH (07:53)
[2020-12-25] MEDS: LORATADINE (CLARITIN) 10 MG TAB PO SCH (07:53)
[2020-12-25] MEDS: NYSTATIN ORAL SUSP 5 ML UDC PO SCH ×4 (07:53→21:27)
[2020-12-25] MEDS: DOCUSATE SODIUM 100 MG (COLACE) CAP PO SCH ×2 (07:53→21:27)
[2020-12-25] MEDS: ASPIRIN E.C. 81 MG (ECOTRIN) TAB PO SCH (07:53)
[2020-12-25 07:54] VITALS: BP 146/66
--- NOTE | 2020-12-25 08:43 | Cardiology Progress Note ---
Subjective Date Seen by Provider: Dec 25, 2020 Time Seen by Provider: 08:42 Subjective/Events-last exam Patient was seen during physical therapy session, feeling better. No new co mplaint Review of Systems General: No Chills, No Night Sweats, No Fatigue, No Malaise, No Appetite, No Other HEENT: No Head Aches, No Visual Changes, No Eye Pain, No Ear Pain, No Dysphasia, No Sinus Congestion, No Post Nasal Drip, No Sore Throat, No Other Pulmonary: No Dyspnea, No Cough, No Pleuritic Chest Pain, No Other Cardiovascular: No: Chest Pain, Palpitations, Orthopnea, Paroxysmal Noc. Dyspnea, Edema, Lt Headedness, Other Objective-Cardiology Exam Last Set of Vital Signs Vital Signs 12/24/20 12/25/20 08:47 07:54 Temp 37.0 Pulse 81 Resp 18 B/P (MAP) 146/66 (92) Pulse Ox 95 O2 Delivery Room Air O2 Flow Rate 2.00 Capillary Refill : General: Alert, Oriented X3, Cooperative HEENT: Atraumatic, PERRLA Neck: Supple, No JVD Lungs: Clear to Auscultation, Normal Air Movement Heart: Regular Rate, Normal S1, Normal S2 Abdomen: Normal Bowel Sounds, Soft Extremities: No Clubbing, No Cyanosis Skin: No Rashes Neuro: Normal Gait, Normal Speech Psych/Mental Status: Mental Status NL A/P-Cardiology Admission Diagnosis Cryptogenic stroke HTN HLD Assessment/Plan Cryptogenic stroke - MRI showed posterior R frontal lobe stroke possibly in splenium of corpus collosum, Status post loop recorder implant. Continue to monitor for arrhythmia Hypertension, controlled, continue to monitor. Hyperlipidemia started on Lipitor. Monitor lipids General debility/weakness - PT/OT with IRF, lovenox for DVT prophylaxis History of breast cancer. In remission Tobaccoism, educated on smoking cessation Possible discharge today, follow-up as an outpatient in 2 to 4 weeks DOROTHY RIVERA MD Dec 25, 2020 8:43 am
--- NOTE | 2020-12-25 08:44 | Speech Therapy Daily Note ---
Speech Daily Progress Note Subjective Date Seen by Provider: Dec 25, 2020 Time Seen by Provider: 00:30 Patient was resting in her recliner following her PT session. She states she feels like she's getting stronger. She is anxious to leave and go to the [facility] today. Objective Patient completed a series of safety scenario cards at 80% with 10% visual/verbal cues. Assessment Assessment Current Status: Good Progress Treatment Plan Discontinue ST, Goals Met Speech Short Term Goals Short Term Goals Short Term Goals 1) Patient will complete safety awareness tasks related to her daily needs at 80% or greater with minimal cues. 2) Patient will complete speech tasks at 80% or greater with minimal cues. 3) Patient will complete safe oral intake at 90% or greater with least restrictive diet. 4) Patient will utilize compensatory strategies for safe intake at 90% or greater. Speech Market Research Assistant Goals Market Research Assistant Goals Patient will improve cognitive-communication abilities in order to complete daily living tasks with minimal assist. Patient will maintain adequate nutrition/hydration via safe effective swallow function. Speech-Plan Patient/Family Goals Patient/Family Goals: Patient is scheduled to discharge to [facility] today. Treatment Plan Speech Therapy Treatment Plan: Discontinue ST, Goals Met Treatment Duration: Dec 26, 2020 Frequency: 4 times per week (Patient will receive skilled ST 4-5x per week) Estimated Hrs Per Day: .5 hour per day Rehab Potential: Good Barriers to Learning: Patient's recent CVA with debility Pt/Family Agrees to Plan: Yes Safety Risks/Education Teaching Recipient: Patient Teaching Methods: Demonstration, Discussion Response to Teaching: Verbalize Understanding, Return Demonstration Education Topics Provided: Continued overall safety upon discharge, continued safety with oral intake Time Speech Therapy Time In: 10:00 Speech Therapy Time Out: 10:30 Total Billed Time: 30 Billed Treatment Time 1, SLTS, DYST ARNULFO Barrett Dec 25, 2020 08:44
--- NOTE | 2020-12-25 08:55 | Physical Therapy Daily Note ---
PT Daily Note-Current Subjective Patient in recliner pre tx, agrees to PT, has no complaints of pain Appearance Patient in therapy gym post tx, has OT right after PT Mental Status Patient Orientation: Person, Place, Situation Transfers SCALE: Activities may be completed with or without assistive devices. 8-Mqvmkrxpbv-mwmrsbk completes the activity by him/herself with no assistance from a helper. 5-Set-up or Clean-up Assistance-helper sets up or cleans up; patient completes activity. [place] assists only prior to or following the activity. 4-Supervision or Touching Assistance-helper provides verbal cues and/or touching/steadying and/or contact guard assistance as patient completes activity. Assistance may be provided throughout the activity or intermittently. 3-Partial/Moderate Assistance-helper does LESS THAN HALF the effort. [place] lifts, holds or supports trunk or limbs, but provides less than half the effort. 2-Substantial/Maximal Assistance-helper does MORE THAN HALF the effort. [place] lifts or holds trunk or limbs and provides more than half the effort. 4-Eawgdbzjb-qgkvef does ALL the effort. Patient does none of the effort to complete the activity. Or, the assistance of 2 or more helpers is required for the patient to complete the activity. If activity was not attempted, code reason: 7-Patient Refused. 9-Not Applicable-not attempted and the patient did not perform the activity before the current illness, exacerbation or injury. 10-Not Attempted due to Environmental Limitations-(lack of equipment, weather restraints, etc.). 88-Not Attempted due to Medical Conditions or Safety Concerns. Sit to Stand (QC): 3 Chair/Bej-rd-Hnsns Xfer(QC): 3 Gait Training Distance: 120', 60'x2 Walk 10 feet (QC): 3 Walk 50 ft with 2 Turns(QC): 3 Gait Assistive Device: Walker Alec min assist today to maintain balance during ambulation, better step through on left leg but still has some adduction when stepping with left leg Exercises Standing: Mini squats, Step-ups Standing Reps: 15 LAQ alternating for 5 min, sidestepping in parallel bars 6'x6 NuStep Minutes: 15 NuStep Workload: 4 Treatments transfers, ambulation, LE strengthening Assessment Current Status: Fair Progress improved balance during ambulation but still needs assist PT Short Term Goals Short Term Goals Time Frame: December 18, 2020 Roll Left & Right: 4 Sit to lyin Lying to sitting on side of be: 4 Sit to stand: 3 Chair/lpk-dg-akutw transfer: 3 Walk 10 feet: 3 Walk 50 feet with two turns: 3 PT Technical Instructor Goals Technical Instructor Goals PT [facility] Goals Time Frame: Jan 01, 2021 Roll Left & Right (QC): 6 Sit to Lying (QC): 6 Lying-Sitting on Side/Bed(QC): 6 Sit to Stand (QC): 4 Chair/Gjs-sz-Zrtwh Xfer(QC): 4 Toilet Transfer (QC): 4 Car Transfer (QC): 4 Does the Patient Walk: Yes Walk 10 feet (QC): 4 Walk 50ft with 2 Turns (QC): 4 Walk 150 ft (QC): 88 Walking 10ft on Uneven Surface: 3 1 Step (curb) (QC): 3 4 Steps (QC): 88 12 Steps (QC): 88 Picking up an Object (QC): 88 Wheel 50 feet with 2 turns (QC: 5 Wheel 150 feet: 5 PT Plan Problem List Problem List: Activity Tolerance, Functional Strength, Safety, Balance, Gait, Transfer, Bed Mobility, ROM Treatment/Plan Treatment Plan: Continue Plan of Care Treatment Plan: Bed Mobility, Education, Functional Activity Helene, Functional Strength, Group Therapy, Gait, Safety, Therapeutic Exercise, Transfers Treatment Duration: Jan 01, 2021 Frequency: At least 5 of 7 days/Wk (IRF) Estimated Hrs Per Day: 1.5 hours per day Patient and/or Family Agrees t: Yes Safety Risks/Education Patient Education: Gait Training, Transfer Techniques, Correct Positioning, Safety Issues Teaching Recipient: Patient Teaching Methods: Demonstration, Discussion Response to Teaching: Reinforcement Needed Time/GCodes Time In: 0800 Time Out: 0900 Total Billed Treatment Time: 60 Total Billed Treatment 1 visit EX 30' FA 30' BHARAT THOMAS PT Dec 25, 2020 08:55
--- NOTE | 2020-12-25 09:57 | Occupational Ther Daily Note ---
OT Current Status-Daily Note Subjective No pain reported. Appearance Pt. in therapy gym after PT. Agrees to OT. Mental Status/Objective Patient Orientation: Person, Place, Time, Situation ADL-Treatment Therapy Code Descriptions/Definitions Functional [place] Measure: 0=Not Assessed/NA 4=Minimal Assistance 1=Total Assistance 5=Supervision or Setup 2=Maximal Assistance 6=Modified [place] 3=Moderate Assistance 7=Complete IndependenceSCALE: Activities may be completed with or without assistive devices. 5-Fmhsirkfdf-hlxjfnl completes the activity by him/herself with no assistance from a helper. 5-Set-up or Clean-up Assistance-helper sets up or cleans up; patient completes activity. [place] assists only prior to or following the activity. 4-Supervision or Touching Assistance-helper provides verbal cues and/or touching/steadying and/or contact guard assistance as patient completes activity. Assistance may be provided throughout the activity or intermittently. 3-Partial/Moderate Assistance-helper does LESS THAN HALF the effort. [place] lifts, holds or supports trunk or limbs, but provides less than half the effort. 2-Substantial/Maximal Assistance-helper does MORE THAN HALF the effort. [place] lifts or holds trunk or limbs and provides more than half the effort. 8-Pzuntrdyw-ckkade does ALL the effort. Patient does none of the effort to complete the activity. Or, the assistance of 2 or more helpers is required for the patient to complete the activity. If activity was not attempted, code reason: 7-Patient Refused. 9-Not Applicable-not attempted and the patient did not perform the activity before the current illness, exacerbation or injury. 10-Not Attempted due to Environmental Limitations-(lack of equipment, weather restraints, etc.). 88-Not Attempted due to Medical Conditions or Safety Concerns. Other Treatment Pt. works on bilateral coordination activity with placing both hands on large ball and attempting to press together. Right UE overpowers Left, and this isn't possible. Pt. completes arm bike x 10 minutes at min resistance, with left UE alberto wrapped to arm pedal. Completed for left shoulder ROM with smooth glide for continued movement, with right UE facilitating the movement. Tolerated well. OT completed gentle PROM to right UE in all planes, with joint compression at shoulder level. Facilitated scapular glide with movement. Noted slight subluxation beginning and provided compression with any shoulder flexion movements. Pt. able to actively flex shoulder to approximately 60 degrees, but fatigues quickly with 3 movements. Completed joint tapping at biceps for bicep movement. Engaged biceps easier for upward movement. Worked on fine motor pi nc with therapy clothespins in thumb/index finger for pinch strength. Tolerated well. Ambulated back with gucci cane and min assist. Pt. fatigues quickly. All needs met back in chair. Education OT Patient Education: Correct positioning, Exercise program, Modified ADL techniques, Progress toward Goal/Update tx plan, Purpose of tx/functional acti vities, Reviewed precautions, Rehab process, Transfer techniques Teaching Recipient: Patient Teaching Methods: Demonstration, Discussion Response to Teaching: Verbalize Understanding, Return Demonstration, Reinforcement Needed OT Short Term Goals Short Term Goals Time Frame: Dec 25, 2020 Eatin Oral hygiene: 3 Toileting hygiene: 3 Shower/bathe self: 3 Upper body dressin Lower body dressin Putting on/taking off footwear: 3 OT [facility] Service Officer Goals [facility] Service Officer Goals Time Frame: Jan 08, 2021 Eating (QC): 6 Oral Hygiene (QC): 5 Toileting Hygiene (QC): 4 Shower/Bathe Self (QC): 4 Upper Body Dressing (QC): 5 Lower Body Dressing (QC): 4 On/Off Footwear (QC): 4 Additional Goals: 1-Demonstrate ADL Tasks, 2-Verbalize Understanding, 3- ImproveStrength/Helene 1=Demonstrate adherence to instructed precautions during ADL tasks. 2=Patient will verbalize/demonstrate understanding of assistive devices/modifications for ADL. 3=Patient will improve strength/tolerance for activity to enable patient to perform ADL's. OT Education/Plan Problem List/Assessment Assessment: Decreased Activ Tolerance, Decreased UE Strength, Dependent [place] sfers, Impaired Coordination, Impaired Funct Balance, Impaired I ADL's, Impaired Self-Care Skills, Restricted Funct UE ROM Discharge Recommendations Plan/Recommendations: Continue POC Therapy Discharge Recommendati: 24 Hour Supervision Treatment Plan/Plan of Care Treatment,Training & Education: Yes Patient would benefit from OT for education, treatment and training to promote independence in ADL's, mobility, safety and/or upper extremity function for ADL's. Plan of Care: ADL Retraining, Functional Mobility, Group Exercise/Act as Ind, UE Funct Exercise/Act Treatment Duration: Jan 08, 2021 Frequency: At least 5 of 7 days/Wk (IRF) Estimated Hrs Per Day: 1.5 hours per day Agreement: Yes Rehab Potential: Good Time/GCodes Start Time: 09:00 Stop Time: 10:00 Total Time Billed (hr/min): 60 Billed Treatment Time 1, Ex x 15minutes, ADL x 45minutes MIGUEL CARRIZALES OT Dec 25, 2020 09:57
[2020-12-25] MEDS: ENOXAPARIN 40 MG/0.4 ML (LOVENOX) SYR SC SCH (10:37)
--- NOTE | 2020-12-25 14:38 | Physical Therapy Daily Note ---
PT Daily Note-Current Subjective Patient in recliner pre tx, agrees to PT, has no complaints of pain. Appearance Patient in recliner post tx with nurse call, phone, tray, chair alarm on, all needs met. Mental Status Patient Orientation: Person, Place, Situation Transfers SCALE: Activities may be completed with or without assistive devices. 8-Bueqdqvfsj-iailcxu completes the activity by him/herself with no assistance from a helper. 5-Set-up or Clean-up Assistance-helper sets up or cleans up; patient completes activity. [place] assists only prior to or following the activity. 4-Supervision or Touching Assistance-helper provides verbal cues and/or touching/steadying and/or contact guard assistance as patient completes activity. Assistance may be provided throughout the activity or intermittently. 3-Partial/Moderate Assistance-helper does LESS THAN HALF the effort. [place] lifts, holds or supports trunk or limbs, but provides less than half the effort. 2-Substantial/Maximal Assistance-helper does MORE THAN HALF the effort. [place] lifts or holds trunk or limbs and provides more than half the effort. 1-Cijtvufcj-ebwmdv does ALL the effort. Patient does none of the effort to complete the activity. Or, the assistance of 2 or more helpers is required for the patient to complete the activity. If activity was not attempted, code reason: 7-Patient Refused. 9-Not Applicable-not attempted and the patient did not perform the activity before the current illness, exacerbation or injury. 10-Not Attempted due to Environmental Limitations-(lack of equipment, weather restraints, etc.). 88-Not Attempted due to Medical Conditions or Safety Concerns. Exercises Seated Therapy Exercises: Ankle pumps, Hip flexion, Hamstring Curls (RTB), Hip abd/add (RTB and ball) Seated Reps: 20 LAQ alternating for 5 min Treatments LE exercise Assessment Current Status: Fair Progress improving dorsiflexion on the left side PT Short Term Goals Short Term Goals Time Frame: December 18, 2020 Roll Left & Right: 4 Sit to lyin Lying to sitting on side of be: 4 Sit to stand: 3 Chair/dob-tt-dewec transfer: 3 Walk 10 feet: 3 Walk 50 feet with two turns: 3 PT [facility] Goals Penitentiary Goals PT [facility]iary Goals Time Frame: Jan 01, 2021 Roll Left & Right (QC): 6 Sit to Lying (QC): 6 Lying-Sitting on Side/Bed(QC): 6 Sit to Stand (QC): 4 Chair/Jse-uq-Ottgq Xfer(QC): 4 Toilet Transfer (QC): 4 Car Transfer (QC): 4 Does the Patient Walk: Yes Walk 10 feet (QC): 4 Walk 50ft with 2 Turns (QC): 4 Walk 150 ft (QC): 88 Walking 10ft on Uneven Surface: 3 1 Step (curb) (QC): 3 4 Steps (QC): 88 12 Steps (QC): 88 Picking up an Object (QC): 88 Wheel 50 feet with 2 turns (QC: 5 Wheel 150 feet: 5 PT Plan Problem List Problem List: Activity Tolerance, Functional Strength, Safety, Balance, Gait, Transfer, Bed Mobility, ROM Treatment/Plan Treatment Plan: Continue Plan of Care Treatment Plan: Bed Mobility, Education, Functional Activity Helene, Functional Strength, Group Therapy, Gait, Safety, Therapeutic Exercise, Transfers Treatment Duration: Jan 01, 2021 Frequency: At least 5 of 7 days/Wk (IRF) Estimated Hrs Per Day: 1.5 hours per day Patient and/or Family Agrees t: Yes Safety Risks/Education Patient Education: Correct Positioning, Safety Issues Teaching Recipient: Patient Teaching Methods: Demonstration, Discussion Response to Teaching: Reinforcement Needed Time/GCodes Time In: 1423 Time Out: 1438 Total Billed Treatment Time: 15 Total Billed Treatment 1 visit EX Veronica' BHARAT THOMAS PT Dec 25, 2020 14:38
--- NOTE | 2020-12-25 15:08 | Occupational Ther Daily Note ---
OT Current Status-Daily Note Subjective No pain reported. Mental Status/Objective Patient Orientation: Person, Place, Time, Situation ADL-Treatment Therapy Code Descriptions/Definitions Functional [place] Measure: 0=Not Assessed/NA 4=Minimal Assistance 1=Total Assistance 5=Supervision or Setup 2=Maximal Assistance 6=Modified [place] 3=Moderate Assistance 7=Complete IndependenceSCALE: Activities may be completed with or without assistive devices. 1-Aysqszwxqk-meltvgk completes the activity by him/herself with no assistance from a helper. 5-Set-up or Clean-up Assistance-helper sets up or cleans up; patient completes activity. [place] assists only prior to or following the activity. 4-Supervision or Touching Assistance-helper provides verbal cues and/or touching/steadying and/or contact guard assistance as patient completes activity. Assistance may be provided throughout the activity or intermittently. 3-Partial/Moderate Assistance-helper does LESS THAN HALF the effort. [place] lifts, holds or supports trunk or limbs, but provides less than half the effort. 2-Substantial/Maximal Assistance-helper does MORE THAN HALF the effort. [place] lifts or holds trunk or limbs and provides more than half the effort. 4-Dgvufqffo-pdkqvc does ALL the effort. Patient does none of the effort to complete the activity. Or, the assistance of 2 or more helpers is required for the patient to complete the activity. If activity was not attempted, code reason: 7-Patient Refused. 9-Not Applicable-not attempted and the patient did not perform the activity before the current illness, exacerbation or injury. 10-Not Attempted due to Environmental Limitations-(lack of equipment, weather restraints, etc.). 88-Not Attempted due to Medical Conditions or Safety Concerns. Other Treatment Pt. up in chair. Agrees to work with OT. Stands from chair with gucci cane with min assist. Ambulates with min assist approximely 300 feet, with one rest break. All needs met back in room in chair. Education OT Patient Education: Correct positioning, Transfer techniques Teaching Recipient: Patient Teaching Methods: Demonstration, Discussion OT Short Term Goals Short Term Goals Time Frame: Dec 25, 2020 Eatin Oral hygiene: 3 Toileting hygiene: 3 Shower/bathe self: 3 Upper body dressin Lower body dressin Putting on/taking off footwear: 3 OT Nursing Home Goals Nursing Home Goals Time Frame: Jan 08, 2021 Eating (QC): 6 Oral Hygiene (QC): 5 Toileting Hygiene (QC): 4 Shower/Bathe Self (QC): 4 Upper Body Dressing (QC): 5 Lower Body Dressing (QC): 4 On/Off Footwear (QC): 4 Additional Goals: 1-Demonstrate ADL Tasks, 2-Verbalize Understanding, 3- ImproveStrength/Helene 1=Demonstrate adherence to instructed precautions during ADL tasks. 2=Patient will verbalize/demonstrate understanding of assistive devices/modifications for ADL. 3=Patient will improve strength/tolerance for activity to enable patient to perform ADL's. OT Education/Plan Discharge Recommendations Plan/Recommendations: Continue POC Treatment Plan/Plan of Care Patient would benefit from OT for education, treatment and training to promote independence in ADL's, mobility, safety and/or upper extremity function for ADL's. Plan of Care: ADL Retraining, Functional Mobility, Group Exercise/Act as Ind, UE Funct Exercise/Act Treatment Duration: Jan 08, 2021 Frequency: At least 5 of 7 days/Wk (IRF) Estimated Hrs Per Day: 1.5 hours per day Agreement: Yes Rehab Potential: Good Time/GCodes Start Time: 14:40 Stop Time: 14:55 Total Time Billed (hr/min): 15 Billed Treatment Time 1, MIGUEL DAVIES OT Dec 25, 2020 15:08
[2020-12-25] MEDS: polyethylene glycoL POWDER 17 GM (MIRALAX) PACK PO SCH (20:02)
[2020-12-25 20:40] VITALS: BP 120/58
[2020-12-25] MEDS: MELATONIN 3 MG TABLET PO SCH (21:27)
[2020-12-26] MEDS: CYANOCOBALAMIN 1,000 MCG (VITAMIN B-12) TABLET PO SCH (06:40)
[2020-12-26] MEDS: MULTIVIT W/MINERALS TAB (THERAGRAN M) PO SCH (06:40)
--- NOTE | 2020-12-26 06:43 | PM&R Progress Note ---
Subjective HPI/CC On Admission Date Seen by Provider: Dec 26, 2020 Subjective/Events-last exam 12/25/2020: Discharge is planned when insurance approves No major issues No pain is reported 12/24/20: [facility] has accepted her will wait for Insurance approval DC tomorrow if insurance approves Was a little bit dizzy today and she is on Claritin for her allergies She has really plateaued not really increasing any strength 12/23/20: Pt doing pretty well Daughter was very irritated with everyone on the care team for unknown reason. She appears to be very overwhelmed and trying to manage everything with her mom. Will try to be supportive and understanding but she was very rude to me and social working and everyone on the care team. 12/22/2020: Patient doing really well Daughter at the bedside Labs good Walking with a hemicane Overall doing pretty well but has plateaued 12/21/2020 Patient much improved Tired a bit Son tried to come in to disturb her to get the apartment chambers at 11:00 so she did not sleep well 12/20/2020: No major issues today Has some allergies so we will start Claritin No falls Continues to work with therapy 12/19/20: Pt doing pretty well BP a bit low so will DC Lisinopril per cardiology Bowels moved two days ago Overall feels really good 12/18/20: Patient doing well Plateaued in PT Needs NHP 12/17/20: Pt doing pretty well Still requiring a bedside commode and two people assist DC telemetry Bowels are moving okay Softer stools noted 12/16/20: Pt doing really well Telemetry noted, HR of 30s but on assessment it was 78 Decreasing BP medications Bowels moved yesterday 12/15/20: Pt doing pretty well Had a BM yesterday but it was hard Had a bloody nose so I will start nasal spray Overall no major concerns 12/14/20: Patient denies any issues No pain reported BM+ 12/13/20: Patient doing well Having some abdominal cramps from laxatives No other issues reported Tearful at times Doing well with thin liquids 12/12/20: Pt doing okay but a little bit tired Decreased stamina from the stroke No BM so laxatives will be given, this is the third day without a BM 12/11/20: Pt settling in well today Doing very well Taking pills okay Feeds herself Flaccidity on the left side noted Bowels moved two days ago Objective Exam Vital Signs Vital Signs Date Time Temp Pulse Resp B/P (MAP) Pulse Ox O2 Delivery O2 Flow Rate FiO2 12/26/20 09:38 Room Air 12/26/20 08:00 36.2 79 18 132/62 (85) 99 12/24/20 08:47 2.00 Capillary Refill : General Appearance: No Apparent Distress, WD/WN, Chronically ill, Thin HEENT: PERRL/EOMI, Normal ENT Inspection, Pharynx Normal Neck: Full Range of Motion, Normal Inspection, Non Tender, Supple, Carotid Bruit Respiratory: Chest Non Tender, Lungs Clear, Normal Breath Sounds, No Accessory Muscle Use, No Respiratory Distress Cardiovascular: Regular Rate, Rhythm, No Edema, No Gallop, No JVD, No Murmur, Normal Peripheral Pulses Gastrointestinal: Normal Bowel Sounds, No Organomegaly, No Pulsatile Mass, Non Tender, Soft Back: Normal Inspection, No CVA Tenderness, No Vertebral Tenderness Extremity: Normal Capillary Refill, Normal Inspection, Normal Range of Motion, Non Tender, No Calf Tenderness, No Pedal Edema Neurologic/Psychiatric: Alert, Oriented x3, Abnormal Gait, Aphasia, Depressed Affect, Facial Droop, Motor Weakness (left sided flaccidity) Skin: Normal Color, Warm/Dry Lymphatic: No Adenopathy Results/Procedures Lab Patient resulted labs reviewed. FIM Transfers Therapy Code Descriptions/Definitions Functional [place] Measure: 0=Not Assessed/NA 4=Minimal Assistance 1=Total Assistance 5=Supervision or Setup 2=Maximal Assistance 6=Modified [place] 3=Moderate Assistance 7=Complete IndependenceSCALE: Activities may be completed with or without assistive devices. 0-Cemqitchry-dnguhkb completes the activity by him/herself with no assistance from a helper. 5-Set-up or Clean-up Assistance-helper sets up or cleans up; patient completes activity. [place] assists only prior to or following the activity. 4-Supervision or Touching Assistance-helper provides verbal cues and/or touching/steadying and/or contact guard assistance as patient completes activity. Assistance may be provided throughout the activity or intermittently. 3-Partial/Moderate Assistance-helper does LESS THAN HALF the effort. [place] lifts, holds or supports trunk or limbs, but provides less than half the effort. 2-Substantial/Maximal Assistance-helper does MORE THAN HALF the effort. [place] lifts or holds trunk or limbs and provides more than half the effort. 5-Ysbutmbpr-mtgqao does ALL the effort. Patient does none of the effort to complete the activity. Or, the assistance of 2 or more helpers is required for the patient to complete the activity. If activity was not attempted, code reason: 7-Patient Refused. 9-Not Applicable-not attempted and the patient did not perform the activity before the current illness, exacerbation or injury. 10-Not Attempted due to Environmental Limitations-(lack of equipment, weather restraints, etc.). 88-Not Attempted due to Medical Conditions or Safety Concerns. Roll Left to Right (QC): 4 Sit to Lying (QC): 4 Sit to Stand (QC): 3 Chair/Ofo-wd-Qactu Xfer(QC): 3 Car Transfer (QC): 3 Gait Training Does the Patient Walk?: Yes Distance: 120', 60'x2 Walk 10 feet (QC): 3 Walk 50 ft with 2 Turns(QC): 3 Walk 150 ft (QC): 88 Walking 10ft/uneven surface-QC: 3 Gait Persons Needed: 1 Gait Assistive Device: Walker Alec Wheelchair Training Does the Pt Use a Wheelchair?: Yes Distance: 50' Wheel 50 ft with 2 turns (QC): 4 Wheel 150 ft (QC): 4 Type of Wheelchair: Manual Stair Training Stair Training: Handrails/: uses cane (hemiwalker) #of Steps: 1 1 Step (curb) (QC): 3 4 Steps (QC): 88 12 Steps (QC): 88 Stairs: Pattern: Step to Balance Picking up an Object (QC): 88 ADL-Treatment Eating (QC): 5 Oral Hygiene (QC): 5 (Set up seated at sink.) Bathing Location: L Arm, R Arm, L Upper Leg, R Upper Leg, Chest, Abdomen, Buttocks, Perineal Area Shower/Bathe Self (QC): 3 (Min assist to wash rear [place] area in shower.) Upper Body Dressing (QC): 3 (Min assist to don shirt.) Lower Body Dressing (QC): 3 (Mod assist in stance to don pants over hips.) On/Off Footwear (QC): 3 (Mod assist) Toileting Hygiene (QC): 3 Toilet Transfer (QC): 3 (Min assist) Assessment/Plan Assessment and Plan Assess & Plan/Chief Complaint Assessment: 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 HTN HLP h/o breast cancer Smoker s/p loop recorder 12/18/20 Plan: Aggressive rehab Walker with platform Monitor closely 12/11/20: Monitor BP Cardiology consultation 12/12/20: BM regimen Fall risk 12/13/20: Monitor O2 BP management Cardiology appreciated 12/14/20: Improved status Monitor closely 12/15/20: Monitor closely BP monitored 12/16/20: Monitor BP Monitor Tely 12/17/20: Monitor closely Recheck next week 12/18/20: Monitor closely BP monitor Loop recorder 12/19/20: NHP will be needed Monitor BP 12/20/2020: Monitor for falls Claritin for allergies 12/21/2020 Monitor closely Fall risk 12/22/2020: Monitor closely Plan for discharge sometime this week likely detention 12/23/20: DC planning Support for daughter who seems very overwhelmed 12/24/20: NHP once insurance approves 01/21/2021: Discharge is planned once insurance approves half-way at discharge (1) Acute CVA (cerebrovascular accident) Status: Acute (2) HTN (hypertension) Status: Acute (3) HLD (hyperlipidemia) Status: Acute MOHIT BOYKIN DO Dec 26, 2020 06:43
[2020-12-26 08:00] VITALS: BP 132/62
[2020-12-26] MEDS: NICOTINE PATCH REMOVAL TP SCH (08:00)
[2020-12-26] MEDS: ASPIRIN E.C. 81 MG (ECOTRIN) TAB PO SCH (08:41)
[2020-12-26] MEDS: SENNA W/DOCUSATE (SENOKOT S) TABLET PO SCH (08:41)
[2020-12-26] MEDS: LORATADINE (CLARITIN) 10 MG TAB PO SCH (08:41)
[2020-12-26] MEDS: DOCUSATE SODIUM 100 MG (COLACE) CAP PO SCH (08:41)
[2020-12-26] MEDS: NYSTATIN ORAL SUSP 5 ML UDC PO SCH ×2 (08:42→11:54)
[2020-12-26] MEDS: NICOTINE 14 MG (NICODERM) PATCH TD SCH (08:42)
[2020-12-26] MEDS: CALCIUM CARBONATE 600 MG (CALCARB) TAB PO SCH (08:43)
--- NOTE | 2020-12-26 08:52 | Cardiology Progress Note ---
Subjective Date Seen by Provider: Dec 26, 2020 Time Seen by Provider: 08:51 Subjective/Events-last exam Patient is laying down in her recliner, feeling better. No new complaint Review of Systems General: No Chills, No Night Sweats, No Fatigue, No Malaise, No Appetite, No Ot her HEENT: No Head Aches, No Visual Changes, No Eye Pain, No Ear Pain, No Dysphasia, No Sinus Congestion, No Post Nasal Drip, No Sore Throat, No Other Pulmonary: No Dyspnea, No Cough, No Pleuritic Chest Pain, No Other Cardiovascular: No: Chest Pain, Palpitations, Orthopnea, Paroxysmal Noc. Dyspnea, Edema, Lt Headedness, Other Objective-Cardiology Exam Last Set of Vital Signs Vital Signs 12/24/20 12/26/20 08:47 08:00 Temp 36.2 Pulse 79 Resp 18 B/P (MAP) 132/62 (85) Pulse Ox 99 O2 Delivery Room Air O2 Flow Rate 2.00 Capillary Refill : General: Alert, Oriented X3, Cooperative HEENT: Atraumatic, PERRLA Neck: Supple, No JVD Lungs: Clear to Auscultation, Normal Air Movement Heart: Regular Rate, Normal S1, Normal S2 Abdomen: Normal Bowel Sounds, Soft Extremities: No Clubbing, No Cyanosis Skin: No Rashes Neuro: Normal Gait, Normal Speech Psych/Mental Status: Mental Status NL A/P-Cardiology Admission Diagnosis Cryptogenic stroke HTN HLD Assessment/Plan Cryptogenic stroke - MRI showed posterior R frontal lobe stroke possibly in splenium of corpus collosum, Status post loop recorder implant. Continue to monitor for arrhythmia Hypertension, controlled, continue to monitor. Hyperlipidemia started on Lipitor. Monitor lipids General debility/weakness - PT/OT with IRF, lovenox for DVT prophylaxis History of breast cancer. In remission Tobaccoism, educated on smoking cessation Okay for discharge from cardiology standpoint, appointment with Dr. Newby's office in 2 to 4 weeks DOROTHY NEWBY MD Dec 26, 2020 8:52 am
--- NOTE | 2020-12-26 08:56 | Physical Therapy Daily Note ---
PT Daily Note-Current Subjective Patient in recliner pre tx, agrees to PT, has no complaints of pain. Patient needs to get her dentures in which takes a while. Appearance Patient on toilet post tx with nurse call, nurse is actually in her room. Mental Status Patient Orientation: Person, Place, Situation Transfers SCALE: Activities may be completed with or without assistive devices. 1-Zmtawitrew-sboyyze completes the activity by him/herself with no assistance from a helper. 5-Set-up or Clean-up Assistance-helper sets up or cleans up; patient completes activity. Tyler assists only prior to or following the activity. 4-Supervision or Touching Assistance-helper provides verbal cues and/or touching/steadying and/or contact guard assistance as patient completes activity. Assistance may be provided throughout the activity or intermittently. 3-Partial/Moderate Assistance-helper does LESS THAN HALF the effort. Tyler lifts, holds or supports trunk or limbs, but provides less than half the effort. 2-Substantial/Maximal Assistance-helper does MORE THAN HALF the effort. Tyler lifts or holds trunk or limbs and provides more than half the effort. 7-Tbmigqaie-ujrzum does ALL the effort. Patient does none of the effort to complete the activity. Or, the assistance of 2 or more helpers is required for the patient to complete the activity. If activity was not attempted, code reason: 7-Patient Refused. 9-Not Applicable-not attempted and the patient did not perform the activity before the current illness, exacerbation or injury. 10-Not Attempted due to Environmental Limitations-(lack of equipment, weather restraints, etc.). 88-Not Attempted due to Medical Conditions or Safety Concerns. Roll Left & Right (QC): 6 Sit to Lying (QC): 5 Lying to Sitting/Side of Bed(Q: 5 Sit to Stand (QC): 4 Chair/Dij-rn-Liodb Xfer(QC): 3 Toilet Transfer (QC): 3 Car Transfer (QC): 3 Patient performs bed mobility with independence, supine <-> sit with setup, sit <-> stand CGA, transfers with min assist (min assist with transfers to her left but CGA with transfers to her right), car transfer min assist. Occasional cues for hand placement and safety. Gait Training Distance: 20' Walk 10 feet (QC): 3 Gait Assistive Device: Walker Alec Patient can ambulate 20' with a hemiwalker with min assist, she has been ambulating much further but she feels not so good this morning, patient states she feels kind of dizzy, BP was 140/65. Patient is almost CGA with ambulation but still needs assist with balance Wheelchair Training Does the Pt Use a Wheelchair?: Yes Wheel 50 ft with 2 turns (QC): 5 Wheel 150 ft (QC): 5 150'x2 Stair Training #of Steps: 1 1 Step (curb) (QC): 3 4 Steps (QC): 88 12 Steps (QC): 88 Stairs: Pattern: Step to Patient went up and down 1 step using a hemiwalker with min assist, cues for step placement and positioning Balance Picking up an Object (QC): 88 Exercises NuStep Minutes: 15 NuStep Workload: 4 Treatments bed mobility and transfers, ambulation, WC mobility, functional strengthening, stair training Assessment Current Status: Poor Progress slightly improved balance with ambulation but less endurance, dizzy PT Short Term Goals Short Term Goals Time Frame: December 18, 2020 Roll Left & Right: 4 Sit to lyin Lying to sitting on side of be: 4 Sit to stand: 3 Chair/bmn-vt-vzmzr transfer: 3 Walk 10 feet: 3 Walk 50 feet with two turns: 3 PT Snf Goals Snf Goals PT Skates Operator Goals Time Frame: Jan 01, 2021 Roll Left & Right (QC): 6 Sit to Lying (QC): 6 Lying-Sitting on Side/Bed(QC): 6 Sit to Stand (QC): 4 Chair/Zis-ee-Osskc Xfer(QC): 4 Toilet Transfer (QC): 4 Car Transfer (QC): 4 Does the Patient Walk: Yes Walk 10 feet (QC): 4 Walk 50ft with 2 Turns (QC): 4 Walk 150 ft (QC): 88 Walking 10ft on Uneven Surface: 3 1 Step (curb) (QC): 3 4 Steps (QC): 88 12 Steps (QC): 88 Picking up an Object (QC): 88 Wheel 50 feet with 2 turns (QC: 5 Wheel 150 feet: 5 PT Plan Problem List Problem List: Activity Tolerance, Functional Strength, Safety, Balance, Gait, Transfer, Bed Mobility, ROM Treatment/Plan Treatment Plan: Continue Plan of Care Treatment Plan: Bed Mobility, Education, Functional Activity Helene, Functional Strength, Group Therapy, Gait, Safety, Therapeutic Exercise, Transfers Treatment Duration: Jan 01, 2021 Frequency: At least 5 of 7 days/Wk (IRF) Estimated Hrs Per Day: 1.5 hours per day Patient and/or Family Agrees t: Yes Safety Risks/Education Patient Education: Gait Training, Transfer Techniques, Steps, Correct Positioning, Safety Issues Teaching Recipient: Patient Teaching Methods: Demonstration, Discussion Response to Teaching: Reinforcement Needed Time/GCodes Time In: 0800 Time Out: 0900 Total Billed Treatment Time: 60 Total Billed Treatment 1 visit EX 15' FA 45' BHARAT THOMAS PT Dec 26, 2020 08:56
[2020-12-26] MEDS: ENOXAPARIN 40 MG/0.4 ML (LOVENOX) SYR SC SCH (10:19)
--- NOTE | 2020-12-26 10:23 | Therapy Team Discharge Summary ---
Therapy Discharge Summary Discharge Recommendations Date of Discharge Occupational Therapy Decreased Activ Tolerance, Decreased UE Strength, Dependent Transfers, Impaired Coordination, Impaired Funct Balance, Impaired I ADL's, Impaired Self-Care Skills, Restricted Funct UE ROM Speech-Language Pathology Patient was admitted to the ARU s/p CVA with debility. Patient received skilled ST for speech production, mild cognitive deficits and dysphagia. Patient was able to advance to Dysphagia II diet level with thin liquids. Patient met all ST goals and is discharging to [facility] today for continued therapy. PT Road Machine Runner Goals Chcf Goals PT Chcf Goals Time Frame: Jan 01, 2021 Roll Left to Right (QC): 6 Sit to Lying (QC): 6 Lying-Sitting on Side/Bed(QC): 6 Sit to Stand (QC): 4 Chair/Fkk-zx-Phobr Xfer(QC): 4 Car Transfer (QC): 4 Does the Patient Walk: Yes Walk 10 feet (QC): 4 Walk 10ft-Uneven Surface(QC): 3 Walk 50ft with 2 Turns (QC): 4 Walk 150 ft (QC): 88 Wheel 50 feet with 2 turns (QC: 5 1 Step (curb) (QC): 3 4 Steps (QC): 88 12 Steps (QC): 88 Picking up an Object (QC): 88 OT Chcf Goals Chcf Goals Time Frame: Jan 08, 2021 Eating (FIM): 6 Eating (QC): 6 Oral Hygiene (QC): 5 Shower/Bathe Self (QC): 4 Upper Body Dressing (QC): 5 Lower Body Dressing (QC): 4 On/Off Footwear (QC): 4 Toileting(FIM): 6 Toileting Hygiene (QC): 4 Toilet/Commode Transfer (QC): 4 Additional Goals: 1-Demonstrate ADL Tasks, 2-Verbalize Understanding, 3- ImproveStrength/Helene 1=Demonstrate adherence to instructed precautions during ADL tasks. 2=Patient will verbalize/demonstrate understanding of assistive devices/modifications for ADL. 3=Patient will improve strength/tolerance for activity to enable patient to perform ADL's. Speech Chcf Goals Road Machine Runner Goals Patient will improve cognitive-communication abilities in order to complete daily living tasks with minimal assist. Patient will maintain adequate nutrition/hydration via safe effective swallow function. ARNULFO TOMAS Dec 26, 2020 10:23
--- NOTE | 2020-12-26 10:53 | Discharge Summary ---
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 HTN HLP h/o breast cancer Smoker s/p loop recorder 12/18/20 Plan: Aggressive rehab Walker with platform Monitor closely 12/11/20: Monitor BP Cardiology consultation 12/12/20: BM regimen Fall risk 12/13/20: Monitor O2 BP management Cardiology appreciated 12/14/20: Improved status Monitor closely 12/15/20: Monitor closely BP monitored 12/16/20: Monitor BP Monitor Tely 12/17/20: Monitor closely Recheck next week 12/18/20: Monitor closely BP monitor Loop recorder 12/19/20: NHP will be needed Monitor BP 12/20/2020: Monitor for falls Claritin for allergies 12/21/2020 Monitor closely Fall risk 12/22/2020: Monitor closely Plan for discharge sometime this week likely jail 12/23/20: DC planning Support for daughter who seems very overwhelmed 12/24/20: NHP once insurance approves 01/21/2021: Discharge is planned once insurance approves detention at discharge (1) Acute CVA (cerebrovascular accident) Status: Acute (2) HTN (hypertension) Status: Acute (3) HLD (hyperlipidemia) Status: Acute Discharge Summary Discharge Physical Examination Allergies: Coded Allergies: Sulfa (Sulfonamide Antibiotics) (Unverified Allergy, Unknown, 12/02/20) Vitals & I&Os Vital Signs Date Time Temp Pulse Resp B/P (MAP) Pulse Ox O2 Delivery O2 Flow Rate FiO2 12/26/20 12:37 36.5 82 18 120/68 95 Room Air 12/24/20 08:47 2.00 General Appearance: Alert, Oriented X3, Cooperative Respiratory: Clear to Auscultation Cardiovascular: Regular Rate Psych/Mental Status: Mental Status NL Hospital Course Was the Problem List Reviewed?: Yes Hospital course: Patient had a standard lengthy hospital course after suffering a stroke and required intensive therapy with physical therapy and occupational therapy in order to regain function. Speech therapy did manage dysphagia and cognition and improved that quite a bit from baseline admission. Cardiology placed a loop recorder. Blood pressure was monitored and patient tolerated agg ressive therapy but needed longer recovery with therapy and discharged to [facility]. Labs (last 24 hrs) Laboratory Tests 12/11/20 05:05: White Blood Count 7.2, Red Blood Count 3.94, Hemoglobin 11.7, Hematocrit 36, Mean Corpuscular Volume 91, Mean Corpuscular Hemoglobin 30, Mean Corpuscular Hemoglobin Concent 33, Red Cell Distribution Width 13.6, Platelet Count 324, Mean Platelet Volume 10.0, Immature Granulocyte % (Auto) 1, Neutrophils (%) (Auto) 68, Lymphocytes (%) (Auto) 20, Monocytes (%) (Auto) 8, Eosinophils (%) (Auto) 3, Basophils (%) (Auto) 1, Neutrophils # (Auto) 4.9, Lymphocytes # (Auto) 1.5, Monocytes # (Auto) 0.6, Eosinophils # (Auto) 0.2, Basophils # (Auto) 0.1, Immature Granulocyte # (Auto) 0.0, Sodium Level 140, Potassium Level 4.2, Chloride Level 104, Carbon Dioxide Level 28, Anion Gap 8, Blood Urea Nitrogen 20H, Creatinine 0.73, Estimat Glomerular Filtration Rate > 60, BUN/Creatinine Ratio 27, Glucose Level 114H, Calcium Level 9.2, Corrected Calcium 9.5, Total Bilirubin 0.7, Aspartate Amino Transf (AST/SGOT) 26, Alanine Aminotransferase (ALT/SGPT) 32, Alkaline Phosphatase 58, Total Protein 6.5, Albumin 3.6 12/15/20 05:16: White Blood Count 7.4, Red Blood Count 3.96, Hemoglobin 11.7, Hematocrit 37, Mean Corpuscular Volume 93, Mean Corpuscular Hemoglobin 30, Mean Corpuscular Hemoglobin Concent 32, Red Cell Distribution Width 14.1, Platelet Count 334, Mean Platelet Volume 10.0, Immature Granulocyte % (Auto) 0, Neutrophils (%) (Auto) 70, Lymphocytes (%) (Auto) 20, Monocytes (%) (Auto) 7, Eosinophils (%) (Auto) 2, Basophils (%) (Auto) 1, Neutrophils # (Auto) 5.2, Lymphocytes # (Auto) 1.5, Monocytes # (Auto) 0.5, Eosinophils # (Auto) 0.1, Basophils # (Auto) 0.1, Immature Granulocyte # (Auto) 0.0, Sodium Level 141, Potassium Level 4.3, Chloride Level 104, Carbon Dioxide Level 29, Anion Gap 8, Blood Urea Nitrogen 16, Creatinine 0.81, Estimat Glomerular Filtration Rate > 60, BUN/Creatinine Ratio 20, Glucose Level 101, Calcium Level 9.1, Corrected Calcium 9.3, Total Bilirubin 0.6, Aspartate Amino Transf (AST/SGOT) 21, Alanine Aminotransferase (ALT/SGPT) 23, Alkaline Phosphatase 72, Total Protein 6.7, Albumin 3.7 12/22/20 05:15: White Blood Count 6.7, Red Blood Count 3.84, Hemoglobin 11.2L, Hematocrit 35, Mean Corpuscular Volume 92, Mean Corpuscular Hemoglobin 29, Mean Corpuscular Hemoglobin Concent 32, Red Cell Distribution Width 13.5, Platelet Count 321, Mean Platelet Volume 10.0, Immature Granulocyte % (Auto) 0, Neutrophils (%) (Auto) 54, Lymphocytes (%) (Auto) 33, Monocytes (%) (Auto) 8, Eosinophils (%) (Auto) 3, Basophils (%) (Auto) 1, Neutrophils # (Auto) 3.6, Lymphocytes # (Auto) 2.2, Monocytes # (Auto) 0.6, Eosinophils # (Auto) 0.2, Basophils # (Auto) 0.1, Immature Granulocyte # (Auto) 0.0, Sodium Level 139, Potassium Level 4.3, Chloride Level 102, Carbon Dioxide Level 26, Anion Gap 11, Blood Urea Nitrogen 15, Creatinine 0.76, Estimat Glomerular Filtration Rate > 60, BUN/Creatinine Ratio 20, Glucose Level 103, Calcium Level 9.1, Corrected Calcium 9.5, Total Bilirubin 0.4, Aspartate Amino Transf (AST/SGOT) 36H, Alanine Aminotransferase (ALT/SGPT) 37, Alkaline Phosphatase 66, Total Protein 6.2L, Albumin 3.5 Pending Labs Laboratory Tests 12/11/20 05:05: White Blood Count 7.2, Red Blood Count 3.94, Hemoglobin 11.7, Hematocrit 36, Mean Corpuscular Volume 91, Mean Corpuscular Hemoglobin 30, Mean Corpuscular Hemoglobin Concent 33, Red Cell Distribution Width 13.6, Platelet Count 324, Mean Platelet Volume 10.0, Immature Granulocyte % (Auto) 1, Neutrophils (%) (Auto) 68, Lymphocytes (%) (Auto) 20, Monocytes (%) (Auto) 8, Eosinophils (%) (Auto) 3, Basophils (%) (Auto) 1, Neutrophils # (Auto) 4.9, Lymphocytes # (Auto) 1.5, Monocytes # (Auto) 0.6, Eosinophils # (Auto) 0.2, Basophils # (Auto) 0.1, Immature Granulocyte # (Auto) 0.0, Sodium Level 140, Potassium Level 4.2, Chloride Level 104, Carbon Dioxide Level 28, Anion Gap 8, Blood Urea Nitrogen 20, Creatinine 0.73, Estimat Glomerular Filtration Rate > 60, BUN/Creatinine Ratio 27, Glucose Level 114, Calcium Level 9.2, Corrected Calcium 9.5, Total Bilirubin 0.7, Aspartate Amino Transf (AST/SGOT) 26, Alanine Aminotransferase (ALT/SGPT) 32, Alkaline Phosphatase 58, Total Protein 6.5, Albumin 3.6 12/15/20 05:16: White Blood Count 7.4, Red Blood Count 3.96, Hemoglobin 11.7, Hematocrit 37, Mean Corpuscular Volume 93, Mean Corpuscular Hemoglobin 30, Mean Corpuscular Hemoglobin Concent 32, Red Cell Distribution Width 14.1, Platelet Count 334, Mean Platelet Volume 10.0, Immature Granulocyte % (Auto) 0, Neutrophils (%) (Auto) 70, Lymphocytes (%) (Auto) 20, Monocytes (%) (Auto) 7, Eosinophils (%) (Auto) 2, Basophils (%) (Auto) 1, Neutrophils # (Auto) 5.2, Lymphocytes # (Auto) 1.5, Monocytes # (Auto) 0.5, Eosinophils # (Auto) 0.1, Basophils # (Auto) 0.1, Immature Granulocyte # (Auto) 0.0, Sodium Level 141, Potassium Level 4.3, Chloride Level 104, Carbon Dioxide Level 29, Anion Gap 8, Blood Urea Nitrogen 16, Creatinine 0.81, Estimat Glomerular Filtration Rate > 60, BUN/Creatinine Ratio 20, Glucose Level 101, Calcium Level 9.1, Corrected Calcium 9.3, Total Bilirubin 0.6, Aspartate Amino Transf (AST/SGOT) 21, Alanine Aminotransferase (ALT/SGPT) 23, Alkaline Phosphatase 72, Total Protein 6.7, Albumin 3.7 12/22/20 05:15: White Blood Count 6.7, Red Blood Count 3.84, Hemoglobin 11.2, Hematocrit 35, Mean Corpuscular Volume 92, Mean Corpuscular Hemoglobin 29, Mean Corpuscular Hemoglobin Concent 32, Red Cell Distribution Width 13.5, Platelet Count 321, Mean Platelet Volume 10.0, Immature Granulocyte % (Auto) 0, Neutrophils (%) (Auto) 54, Lymphocytes (%) (Auto) 33, Monocytes (%) (Auto) 8, Eosinophils (%) (Auto) 3, Basophils (%) (Auto) 1, Neutrophils # (Auto) 3.6, Lymphocytes # (Auto) 2.2, Monocytes # (Auto) 0.6, Eosinophils # (Auto) 0.2, Basophils # (Auto) 0.1, Immature Granulocyte # (Auto) 0.0, Sodium Level 139, Potassium Level 4.3, Chloride Level 102, Carbon Dioxide Level 26, Anion Gap 11, Blood Urea Nitrogen 15, Creatinine 0.76, Estimat Glomerular Filtration Rate > 60, BUN/Creatinine Ratio 20, Glucose Level 103, Calcium Level 9.1, Corrected Calcium 9.5, Total Bilirubin 0.4, Aspartate Amino Transf (AST/SGOT) 36, Alanine Aminotransferase (ALT/SGPT) 37, Alkaline Phosphatase 66, Total Protein 6.2, Albumin 3.5 Discharge Home Medications: Active Scripts Active Ativan (Lorazepam) 0.5 Mg Tablet 0.5 Mg PO TID PRN Deep Sea (Sodium Chloride) 44 Ml [place] 0 Ml NA NEEDED PRN 30 Days Loratadine 10 Mg Tablet 10 Mg PO DAILY 30 Days Zolpidem Tartrate 5 Mg Tablet 5 Mg PO HS PRN Citalopram HBr (Citalopram Hydrobromide) 10 Mg Tablet 10 Mg PO DAILY 365 Days Aspirin EC (Aspirin) 81 Mg Tablet.dr 81 Mg PO DAILY 365 Days Atorvastatin Calcium 80 Mg Tablet 80 Mg PO HS 365 Days Enoxaparin Sodium 40 Mg/0.4 Ml Syringe 40 Mg SC DAILY@1100 7 Days Nicoderm Cq (Nicotine) 1 Each Patch.td24 14 Mg TD DAILY@0900 30 Days Reported Vitamin B-12 (Cyanocobalamin (Vitamin B-12)) 500 Mcg Tablet 500 Mcg PO DAILY Centrum Silver Women Tablet (Multivits-Min/Iron/FA/Lutein) 1 Each Tablet 1 Each PO DAILY Calcium (Calcium Carbonate) 600 Mg Tablet 600 Mg PO DAILY Instructions to patient/family Please see electronic discharge instructions given to patient. Diagnosis/Problems Diagnosis/Problems (1) Acute CVA (cerebrovascular accident) Status: Acute (2) HTN (hypertension) Status: Acute (3) HLD (hyperlipidemia) Status: Acute MOHIT BOYKIN DO Dec 26, 2020 10:53
[2020-12-26 12:37] VITALS: BP 120/68
--- NOTE | 2020-12-26 15:50 | Therapy Team Discharge Summary ---
Therapy Discharge Summary Discharge Recommendations Date of Discharge Dec 26, 2020 at 14:15 Physical Therapy Patient came to rehab following a CVA. Upon evaluation patient performed bed mobility with min assist, supine <-> sit min assist, sit <-> stand mod assist, transfers mod assist, car transfer mod assist, ambulated 6' in the parallel bars with mod assist, and propelled a manual WC 50' with min/mod assist. Patient has been performing bed mobility and transfer training, balance and endurance training, functional strengthening, stair training, gait training, and ed ucation. Patient has made some progress but has not met any of her longterm goals. Now, patient performs bed mobility and supine <-> sit with SBA, sit <-> stand min assist, transfers to the right with CGA but to the left with min/mod assist, car transfer min/mod assist, ambulate 60' with a hemiwalker with min/mod assist (including 50' with at least 2 turns of 90 degrees and 10' over an uneven surface), propels a manual WC 150' with SBA, and can go up and down 1 step using a hemiwalker with min assist. Patient was discharged from this facility today and will be discharged from PT at this time. Occupational Therapy Decreased Activ Tolerance, Decreased UE Strength, Dependent Transfers, Impaired Coordination, Impaired Funct Balance, Impaired I ADL's, Impaired Self-Care Skills, Restricted Funct UE ROM PT Retirement Goals Manufacturing Maintenance Mechanic Goals PT Manufacturing Maintenance Mechanic Goals Time Frame: Jan 01, 2021 Roll Left to Right (QC): 6 Sit to Lying (QC): 6 Lying-Sitting on Side/Bed(QC): 6 Sit to Stand (QC): 4 Chair/Uvp-co-Jgktz Xfer(QC): 4 Car Transfer (QC): 4 Does the Patient Walk: Yes Walk 10 feet (QC): 4 Walk 10ft-Uneven Surface(QC): 3 Walk 50ft with 2 Turns (QC): 4 Walk 150 ft (QC): 88 Wheel 50 feet with 2 turns (QC: 5 1 Step (curb) (QC): 3 4 Steps (QC): 88 12 Steps (QC): 88 Picking up an Object (QC): 88 OT Retirement Goals Manufacturing Maintenance Mechanic Goals Time Frame: Jan 08, 2021 Eating (FIM): 6 Eating (QC): 6 Oral Hygiene (QC): 5 Shower/Bathe Self (QC): 4 Upper Body Dressing (QC): 5 Lower Body Dressing (QC): 4 On/Off Footwear (QC): 4 Toileting(FIM): 6 Toileting Hygiene (QC): 4 Toilet/Commode Transfer (QC): 4 Additional Goals: 1-Demonstrate ADL Tasks, 2-Verbalize Understanding, 3- ImproveStrength/Helene 1=Demonstrate adherence to instructed precautions during ADL tasks. 2=Patient will verbalize/demonstrate understanding of assistive devices/modifications for ADL. 3=Patient will improve strength/tolerance for activity to enable patient to perform ADL's. Speech Retirement Goals Manufacturing Maintenance Mechanic Goals Patient will improve cognitive-communication abilities in order to complete daily living tasks with minimal assist. Patient will maintain adequate nutrition/hydration via safe effective swallow function. BHARAT THOMAS PT Dec 26, 2020 15:50
--- NOTE | 2020-12-29 08:25 | Therapy Team Discharge Summary ---
Therapy Discharge Summary Discharge Recommendations Date of Discharge Dec 26, 2020 at 14:15 Therapy D/C Recommendations: 24 hr Supervision, Correction (TCU/NH) Occupational Therapy Pt. seen by Occupational therapy to increase overall strength and independence with daily skills. Pt. made great progress overall, but still required min/mod assist with most ADLs at discharge, with exception of oral care and feeding. Pt . discharged to longterm facility for continued 24 hour nursing assistance and therapy services. Decreased Activ Tolerance, Decreased UE Strength, Dependent Transfers, Impaired Coordination, Impaired Funct Balance, Impaired I ADL's, Impaired Self-Care Skills, Restricted Funct UE ROM PT Telegraph Repeater Mechanic Goals Fpc Goals PT Fpc Goals Time Frame: Jan 01, 2021 Roll Left to Right (QC): 6 Sit to Lying (QC): 6 Lying-Sitting on Side/Bed(QC): 6 Sit to Stand (QC): 4 Chair/Utz-vo-Guwnl Xfer(QC): 4 Car Transfer (QC): 4 Does the Patient Walk: Yes Walk 10 feet (QC): 4 Walk 10ft-Uneven Surface(QC): 3 Walk 50ft with 2 Turns (QC): 4 Walk 150 ft (QC): 88 Wheel 50 feet with 2 turns (QC: 5 1 Step (curb) (QC): 3 4 Steps (QC): 88 12 Steps (QC): 88 Picking up an Object (QC): 88 OT Telegraph Repeater Mechanic Goals Telegraph Repeater Mechanic Goals Time Frame: Jan 08, 2021 Eating (FIM): 6 (not met) Eating (QC): 6 (not met) Oral Hygiene (QC): 5 (met) Shower/Bathe Self (QC): 4 (not met) Upper Body Dressing (QC): 5 (not met) Lower Body Dressing (QC): 4 (not met) On/Off Footwear (QC): 4 (not met) Toileting(FIM): 6 (not met) Toileting Hygiene (QC): 4 (not met) Toilet/Commode Transfer (QC): 4 (not met) Additional Goals: 1-Demonstrate ADL Tasks, 2-Verbalize Understanding, 3- ImproveStrength/Helene 1=Demonstrate adherence to instructed precautions during ADL tasks. 2=Patient will verbalize/demonstrate understanding of assistive devices/modifications for ADL. 3=Patient will improve strength/tolerance for activity to enable patient to perform ADL's. Speech Telegraph Repeater Mechanic Goals Fpc Goals Patient will improve cognitive-communication abilities in order to complete daily living tasks with minimal assist. Patient will maintain adequate nutrition/hydration via safe effective swallow function. MIGUEL CARRIZALES OT Dec 29, 2020 08:25
== END 2020-12-26 14:15 | DRG 57 ==
PROVIDERS: ADMIT Internal Medicine; ATTEND Internal Medicine
DX: I69.354 Hemiplegia and hemiparesis following cerebral infarction affecting left non-dominant side (principal); R47.01 Aphasia; I69.320 Aphasia following cerebral infarction; F17.210 Nicotine dependence, cigarettes, uncomplicated; I10 Essential (primary) hypertension; E78.5 Hyperlipidemia, unspecified; M19.91 Primary osteoarthritis, unspecified site; B35.1 Tinea unguium; M20.41 Other hammer toe(s) (acquired), right foot; G60.9 Hereditary and idiopathic neuropathy, unspecified; Z85.3 Personal history of malignant neoplasm of breast; Z79.82 Long term (current) use of aspirin; Z88.2 Allergy status to sulfonamides; Z82.49 Family history of ischemic heart disease and other diseases of the circulatory system; Z82.3 Family history of stroke
CPT/HCPCS: 36415; 80053; 85025; 94640; 94760

== ENCOUNTER → 2020-12-18 | Day surgery (SDC) | payer MEDICARE ==
[~2020-12-18] MED LIST changes: +ASPI-1238 PO; +ATOR80TA76 PO; +CITA10TA7 PO; +ENOX40DI8 SC; +LISI20TA26 PO; +LORA-404 PO; +LORA10TA7 PO; +Lorazepam PO; +NICO1PAT38 TD; +NYST1000 PO; +SODI44SP2; +ZOLP5TAB7 PO
--- NOTE | 2020-12-18 12:31 | Implantation of Loop Monitor ---
Implant of Loop Monitior IMPLANTATION OF LOOP MONITOR REPORT DATE OF PROCEDURE: 12/18/20 PREOP DIAGNOSIS: Cryptogenic stroke POSTOP DIAGNOSIS: Cryptogenic stroke PROCEDURE DETAILS: The patient is a 75 female with history of cryptogenic stroke, unknown source, work-up so far has been negative, therefore implantable loop recorder was discussed and agreed with the patient. Informed consent was taken. All risks and complications were discussed at length. The patient was draped and prepped in the usual sterile fashion. Local anesthesia was lidocaine, which was given in the substernal area close to the 4th intercostal space. Loop monitor [employer] with serial number [id number] was implanted according to the protocol. Steri- Strips were placed at the end of the procedure. There were no complications and the patient tolerated the procedure well. The device was interrogated with a voltage of. ANESTHESIA: Local anesthesia with lidocaine. COMPLICATIONS: None CONTRAST/FLUOROSCOPY: None CONCLUSION: Successful implantation of loop monitor with no complication FINAL DIAGNOSIS: Cryptogenic stroke Hypertension Hyperlipidemia DOROTHY RIVERA MD December 18, 2020 12:31
== END ==
LOC: CATH 11:45
PROVIDERS: ATTEND Internal Medicine Cardiovascular Disease
DX: I63.9 Cerebral infarction, unspecified (principal); I10 Essential (primary) hypertension; E78.5 Hyperlipidemia, unspecified; F17.210 Nicotine dependence, cigarettes, uncomplicated; Z79.899 Other long term (current) drug therapy
CPT/HCPCS: 33285; C1764

== ENCOUNTER 2021-09-16 11:10 | Inpatient (IN) | payer MEDICARE, MEDICAID ==
[~2021-09-16] VITALS: Ht 172 cm; Wt 65.7 kg
[~2021-09-16 11:10] MED LIST changes: -CITA10TA7 PO; +CITA10TA9 PO
[2021-09-16] MEDS ORDERED: PANTOPRAZOLE 40 MG (PROTONIX) VIAL IV ONE (12:45)
--- NOTE | 2021-09-16 12:47 | ED General ---
General Chief Complaint: General Problems/Pain Stated Complaint: LOW HEMOGLOBIN Nursing Triage Note: SENT HERE FOR A LOW HEMOGLOBIN Source of Information: Patient Exam Limitations: No Limitations (NE GARCIA) History of Present Illness Date Seen by Provider: Sep 16, 2021 Time Seen by Provider: 12:45 Initial Comments Patient is a 76-year-old female with a history of stroke, constipation who presents ED with generalized weakness, low hemoglobin. She states since she has been a resident at [facility] she is noted dark tarry stool. Denies history of blood transfusion. Had lab work done this week with results showing hemoglobin 6.2. She reports generalized abdominal discomfort with a history of constipation. Bowel movement yesterday that was hard. She also reports dark tarry stool. Not currently on a blood thinner. Stroke last year resulted in left-sided weakness. She denies fever, cough, vomiting, chest pain, headache, dizziness. Patient does appear pale. Vital signs stable. (NE GARCIA) Allergies and Home Medications Allergies Coded Allergies: Sulfa (Sulfonamide Antibiotics) (Unverified Allergy, Unknown, 12/02/20) Patient Home Medication List Home Medication List Reviewed: Yes (NE GARCIA) Aspirin (Aspirin EC) 81 Mg Tablet.dr, 81 MG PO DAILY Prescribed by: MOHIT BOYKIN on 12/10/20 162 Atorvastatin Calcium (Atorvastatin Calcium) 80 Mg Tablet, 80 MG PO HS Prescribed by: MOHIT BOYKIN on 12/10/20 1628 Calcium Carbonate (Calcium) 600 Mg Tablet, 600 MG PO DAILY, (Reported) Entered as Reported by: ANGE RAINEY on 05/11/18 1517 Citalopram Hydrobromide (Citalopram HBr) 10 Mg Tablet, 10 MG PO DAILY Prescribed by: MOHIT BOYKIN on 12/10/20 1628 Cyanocobalamin (Vitamin B-12) (Vitamin B-12) 500 Mcg Tablet, 500 MCG PO DAILY, (Reported) Entered as Reported by: ROMULO PURI on 12/03/20 0958 Enoxaparin Sodium (Enoxaparin Sodium) 40 Mg/0.4 Ml Syringe, 40 MG SC DAILY@1100 Prescribed by: MOHIT BOYKIN on 12/10/20 1628 Loratadine (Loratadine) 10 Mg Tablet, 10 MG PO DAILY Prescribed by: MOHIT BOYKIN on 12/25/20 05 Lorazepam (Ativan) 0.5 Mg Tablet, 0.5 MG PO TID PRN for ANXIETY Prescribed by: MOHIT BOYKIN on 12/25/20 05 Multivits-Min/Iron/FA/Lutein (Centrum Silver Women Tablet) 1 Each Tablet, 1 EACH PO DAILY, (Reported) Entered as Reported by: ANGE RAINEY on 05/11/18 151 Nicotine (Nicoderm Cq) 1 Each Patch.td24, 14 MG TD DAILY@0900 Prescribed by: MOHIT BOYKIN on 12/10/20 1628 Sodium Chloride (Deep Sea) 44 Ml Orrum, 0 ML NA NEEDED PRN for DRY NOSE Prescribed by: MOHIT BOYKIN on 12/25/20 05 Zolpidem Tartrate (Zolpidem Tartrate) 5 Mg Tablet, 5 MG PO HS PRN for INSOMNIA Prescribed by: MOHIT BOYKIN on 12/25/20535 Review of Systems Review of Systems Constitutional: No chills, No diaphoresis, No fever, No malaise; weakness EENTM: No hearing loss, No double vision, No eye pain, No tearing, No throat pain, No throat swelling Respiratory: No cough, No dyspnea on exertion, No orthopnea, No short of breath Gastrointestinal: abdominal pain, constipation, other (Dark stool) Genitourinary: No decreased output, No discharge Musculoskeletal: No back pain, No joint pain Skin: change in color; No change in hair/nails (NE GARCIA) All Other Systems Reviewed Negative Unless Noted: Yes (NE GARCIA) Past Hdgfgkd-Hahyct-Xbycul Hx Patient Social History Smoking Status: Former Smoker Substance use?: No Alcohol Use?: No (NE GARCIA) Immunizations Up To Date Tetanus Booster (TDap): Unknown PED Vaccines UTD: No First/Initial COVID19 Vaccinat: UNK 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[employer] (NE GARCIA) Seasonal Allergies Seasonal Allergies: No (NE GARCIA) Past Medical History Surgeries: Yes (R breast lumpectomy) Bladder Surgery, Hysterectomy Respiratory: No Cardiac: No Neurological: No Stroke Reproductive Disorders: No Sexually Transmitted Disease: No Genitourinary: No Gastrointestinal: No 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) Arthritis Endocrine: No HEENT: No (cataracts removed, dentures) Cancer: Yes Breast What Type of Treatment Did You: Radiation, Surgical Intervention Psychosocial: No Integumentary: No Blood Disorders: No (NE GARCIA) Family Medical History Alcoholism G8 BROTHER Cardiovascular disease 19 MOTHER Completed stroke 19 FATHER FH: throat cancer G8 SISTER Hypertension 19 MOTHER Myocardial infarction 19 MOTHER Heart Disease noncontributory (NE GARCIA) Physical Exam Vital Signs Vital Signs - First Documented 09/16/21 12:10 Temp 36.3 Pulse 86 Resp 16 B/P (MAP) 145/90 (108) Pulse Ox 100 O2 Delivery Room Air (GELY LEUNG MD) Vital Signs Capillary Refill : Less Than 3 Seconds (NE GARCIA) Height, Weight, BMI Height: 5'8.00" Weight: 160lbs. 0.0oz. 72.193066fx; 19.00 BMI Method:Stated General Appearance: No Apparent Distress, WD/WN, Other (pale skin) Eyes: Bilateral Eye Normal Inspection, Bilateral Eye PERRL, Bilateral Eye EOMI HEENT: PERRL/EOMI, TMs Normal, Normal ENT Inspection Neck: Full Range of Motion, Normal Inspection, Non Tender, Supple Respiratory: Chest Non Tender, Lungs Clear, No Accessory Muscle Use Cardiovascular: Regular Rate, Rhythm, No Edema, No Gallop, No JVD Gastrointestinal: Normal Bowel Sounds, No Organomegaly, No Pulsatile Mass, Soft, Tenderness (Diffuse tenderness) Genital/Rectal: Other (Hemoccult negative. Stool noted without evidence of impaction) Back: Normal Inspection, No CVA Tenderness Extremity: Normal Capillary Refill, Normal Inspection, Other (Strength deficits left side) Skin: Other (Pale skin, cool to touch) (NE GARCIA) Progress/Results/Core Measures Suspected Sepsis SIRS Temperature: Pulse: 86 Respiratory Rate: 16 Laboratory Tests 09/16/21 12:24: White Blood Count 6.3 Blood Pressure 145 /90 Mean: 108 Laboratory Tests 09/16/21 12:24: Creatinine 0.71, INR Comment 0.9, Platelet Count 435H, Total Bilirubin 0.2 (NE GARCIA) Results/Orders Lab Results Laboratory Tests Test 09/16/21 12:24 09/16/21 13:59 Range/Units White Blood Count 6.3 4.3-11.0 10^3/uL Red Blood Count 3.07 L 3.80-5.11 10^6/uL Hemoglobin 6.9 *L 11.5-16.0 g/dL Hematocrit 24 L 35-52 % Mean Corpuscular Volume 77 L 80-99 fL Mean Corpuscular Hemoglobin 22 L 25-34 pg Mean Corpuscular Hemoglobin Concent 29 L 32-36 g/dL Red Cell Distribution Width 16.2 H 10.0-14.5 % Platelet Count 435 H 130-400 10^3/uL Mean Platelet Volume 9.7 9.0-12.2 fL Immature Granulocyte % (Auto) 0 % Neutrophils (%) (Auto) 77 H 42-75 % Lymphocytes (%) (Auto) 16 12-44 % Monocytes (%) (Auto) 6 0-12 % Eosinophils (%) (Auto) 1 0-10 % Basophils (%) (Auto) 1 0-10 % Neutrophils # (Auto) 4.9 1.8-7.8 10^3/uL Lymphocytes # (Auto) 1.0 1.0-4.0 10^3/uL Monocytes # (Auto) 0.4 0.0-1.0 10^3/uL Eosinophils # (Auto) 0.1 0.0-0.3 10^3/uL Basophils # (Auto) 0.0 0.0-0.1 10^3/uL Immature Granulocyte # (Auto) 0.0 0.0-0.1 10^3/uL Prothrombin Time 12.6 12.2-14.7 SEC INR Comment 0.9 0.8-1.4 Activated Partial Thromboplast Time 26 24-35 SEC Sodium Level 141 135-145 MMOL/L Potassium Level 4.2 3.6-5.0 MMOL/L Chloride Level 107 98-107 MMOL/L Carbon Dioxide Level 28 21-32 MMOL/L Anion Gap 6 5-14 MMOL/L Blood Urea Nitrogen 15 7-18 MG/DL Creatinine 0.71 0.60-1.30 MG/DL Estimat Glomerular Filtration Rate 88 BUN/Creatinine Ratio 21 Glucose Level 107 H 70-105 MG/DL Calcium Level 8.8 8.5-10.1 MG/DL Corrected Calcium 9.3 8.5-10.1 MG/DL Total Bilirubin 0.2 0.1-1.0 MG/DL Aspartate Amino Transf (AST/SGOT) 15 5-34 U/L Alanine Aminotransferase (ALT/SGPT) 8 0-55 U/L Alkaline Phosphatase 52 40-136 U/L Total Protein 6.1 L 6.4-8.2 GM/DL Albumin 3.4 3.2-4.5 GM/DL Lipase 18 8-78 U/L Urine Color YELLOW Urine Clarity CLEAR Urine pH 7.0 5-9 Urine Specific [place] 1.010 L 1.016-1.022 Urine Protein NEGATIVE NEGATIVE Urine Glucose (UA) NEGATIVE NEGATIVE Urine Ketones NEGATIVE NEGATIVE Urine Nitrite NEGATIVE NEGATIVE Urine Bilirubin NEGATIVE NEGATIVE Urine Urobilinogen 0.2 < = 1.0 MG/DL Urine Leukocyte Esterase NEGATIVE NEGATIVE Urine RBC (Auto) NEGATIVE NEGATIVE Urine RBC NONE /HPF Urine WBC 5-10 H /HPF Urine Squamous Epithelial Cells 2-5 /HPF Urine Renal Epithelial Cells NONE /HPF Urine Crystals NONE /LPF Urine Bacteria NEGATIVE /HPF Urine Casts NONE /LPF Urine Mucus NEGATIVE /LPF Urine Culture Indicated NO (GELY LEUNG MD) Medications Given in ED Current Medications Medications Dose Ordered Sig/Connor Route Start Time Stop Time Status Last Admin Dose Admin Iohexol 100 ml ONCE ONCE IV 09/16/21 13:00 09/16/21 13:01 DC 09/16/21 13:09 100 ML Pantoprazole 80 mg ONCE ONCE IV 09/16/21 12:45 09/16/21 12:46 DC 09/16/21 12:50 80 MG Sodium Chloride 100 ml ONCE ONCE IV 09/16/21 13:00 09/16/21 13:01 DC 09/16/21 13:09 100 ML (GELY LEUNG MD) Vital Signs/I&O 09/16/21 12:10 Temp 36.3 Pulse 86 Resp 16 B/P (MAP) 145/90 (108) Pulse Ox 100 O2 Delivery Room Air (GELY LEUNG MD) Vital Signs/I&O Capillary Refill : Less Than 3 Seconds (NE GARCIA) Blood Pressure Mean: 108 Departure Communication (Admissions) Time/Spoke to Admitting Phy: 14:21 Patient was discussed with Dr. Rivero regarding the colonic mass. Hemoccult negative. Last colonoscopy 5 years ago. Stool noted in the colon. He will consult patient and provide orders. No treatment at this time. Patient will be admitted to Dr. Munoz who accepts patient. She will provide acute orders. Patient requesting to be DNR at this time. History of stroke with left-sided deficit. Not currently on anticoagulant. Was given IV Protonix. Vital signs stable. Hemoglobin 6.9. Type and screen was ordered. Dr. Munoz will provide blood transfusion on the floor. (NE GARCIA) Impression Primary Impression: Mass of colon Additional Impression: Anemia Disposition: ADMITTED INPATIENT Condition: Stable Admissions Decision to Admit Reason: Admit from ER (General) Decision to Admit/Date: Sep 16, 2021 Time/Decision to Admit Time: 14:16 (NE GARCIA) ATTENDING PHYSICIAN NOTE: I was physically present as attending physician in the emergency department during the care of this patient, but I was not directly involved in the decision making or delivery of care for this patient. (GELY LEUNG MD) NE GARCIA Sep 16, 2021 12:47 GELY LEUNG MD Sep 16, 2021 20:57
[2021-09-16 12:53] LABS: BASOPHILS % (AUTO) 1 % (0-10); EOSINOPHILS # (AUTO) 0.1 10^3/uL (0.0-0.3); EOSINOPHILS % (AUTO) 1 % (0-10); HEMATOCRIT 24 % (35-52); LYMPHOCYTES % (AUTO) 16 % (12-44); MEAN CORPUSCULAR HGB CONC 29 g/dL (32-36); MEAN CORPUSCULAR VOLUME 77 fL (80-99); MEAN PLATELET VOLUME 9.7 fL (9.0-12.2); MONOCYTES # (AUTO) 0.4 10^3/uL (0.0-1.0); MONOCYTES % (AUTO) 6 % (0-12); NEUTROPHILS # (AUTO) 4.9 10^3/uL (1.8-7.8); NEUTROPHILS % (AUTO) 77 % (42-75); PLATELET COUNT 435 10^3/uL (130-400); WHITE BLOOD COUNT 6.3 10^3/uL (4.3-11.0)
[2021-09-16 12:55] LABS: HEMOGLOBIN 6.9 g/dL (11.5-16.0); MEAN CORPUSCULAR HEMOGLOBIN 22 pg (25-34)
[2021-09-16] MEDS ORDERED: HOLD METFORMIN - RECEIVED CONTRAST 20 ML VIAL IV SCH (13:00)
[2021-09-16] MEDS ORDERED: IOHEXOL 350 MG/ML 100 ML (OMNIPAQUE 350) VIAL IV ONE (13:00)
[2021-09-16] MEDS ORDERED: NS 100 ML (IVPB) BAG IV ONE (13:00)
[2021-09-16 13:01] LABS: ALBUMIN 3.4 GM/DL (3.2-4.5)
[2021-09-16 13:02] LABS: INR 0.9 (0.8-1.4); POTASSIUM 4.2 MMOL/L (3.6-5.0); PROTHROMBIN TIME PATIENT 12.6 SEC (12.2-14.7)
[2021-09-16 13:03] LABS: CALCIUM 8.8 MG/DL (8.5-10.1)
[2021-09-16 13:04] LABS: TOTAL PROTEIN 6.1 GM/DL (6.4-8.2)
[2021-09-16 13:06] LABS: BILIRUBIN,TOTAL 0.2 MG/DL (0.1-1.0)
[2021-09-16 13:08] LABS: CREATININE SERUM 0.71 MG/DL (0.60-1.30)
--- NOTE | 2021-09-16 13:20 | Diagnostic Imaging Report ---
CLINICAL INDICATION: Patient with cough. EXAM: Portable chest x-ray, upright view. COMPARISON: Chest x-ray dated 12/04/2020. FINDINGS: Pulmonary vasculature and cardiac silhouette are within normal limits. Interval placement of loop recorder overlying the left chest. Hyperinflated lungs are again seen. Lungs are clear. There is no pleural effusion or pneumothorax. There are degenerative spurs involving the spine. IMPRESSION: 1: There is no radiographic evidence of acute cardiopulmonary process. 2: Interval placement of a loop recorder overlying the left chest. Dictated by: Dictated on workstation # [id number]
--- NOTE | 2021-09-16 13:45 | Diagnostic Imaging Report ---
CLINICAL INDICATION: Patient with low hemoglobin with lower abdominal pain and nausea status post hysterectomy. Patient with history of blood per rectum. EXAM: Axial CT scan of the abdomen and pelvis performed with 100 cc of Omnipaque 350 IV contrast. Sagittal and coronal reformatted images are created. Auto Exposure Controls were utilized during the CT exam to meet ALARA standards for radiation dose reduction. COMPARISON: None. FINDINGS: There is mild atelectasis involving the posterior aspects of both lungs. There are degenerative spurs involving both hips. There are degenerative spurs involving the visualized lower thoracic spine and lumbar spine. There is lower lumbar spine facet arthropathy. There is grade 1 anterolisthesis of L4 on L5 with no pars defect. There is subtle grade 1 retrolisthesis of L3 on L4. There is diffuse low density throughout the liver which may be related to diffuse fatty infiltration. Liver is otherwise unremarkable. The spleen, pancreas, gallbladder, and adrenal glands are unremarkable. The bladder is fluid filled and otherwise unremarkable. The uterus is surgically absent. The ovaries are nonvisualized and may be atretic or absent. There is a lobulated irregular heterogeneously enhancing mass in the pelvis which appears to arise from the proximal sigmoid colon. There is mass-like wall thickening of the proximal sigmoid colon in this area with an exophytic heterogeneous enhancing mass extending superiorly. This mass is difficult to measure in its entirety, but measures 5.2 cm x 8.7 cm x 7.3 cm (AP x Trans x CC). There are multiple areas of either stool or wall thickening seen within the sigmoid colon and descending colon. There is a moderate amount of stool throughout the colon noted. There is no evidence of intestinal obstruction. There is an area of wall thickening, this may be related to fluid-filled diverticulum involving the proximal sigmoid colon seen on series 2, image 132. There is no adjacent inflammation. There are multiple small mesenteric lymph nodes seen in the upper pelvis region near the mass. The largest on the right side measures 7 mm x 6 mm and is near the right iliac vessels. This is seen on series 2, image 107. The largest on the left side measures 8 mm x 7 mm near the internal left iliac vessels seen on series 2, image 120. There is no intra-abdominal free air or free fluid. There are other subcentimeter short axis lymph nodes in the periaortic region and mesenteric region. The stomach is decompressed and there is wall thickening noted. 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 Mural thrombus is noted. There is atherosclerotic disease involving the abdominal aorta and iliac arteries. The extra-abdominal and extrapelvic soft tissue structures are unremarkable. IMPRESSION: 1: There is a large lobulated heterogeneously enhancing mass in the pelvis which arises from the upper aspect of the proximal sigmoid colon. This is concerning for colon cancer. There are several small subcentimeter lymph nodes in the pelvis and iliac regions near the mass. There is no intestinal obstruction or intra-abdominal free fluid. There are no other areas concerning for metastatic disease. 2: There are several areas of stool and/or colonic wall thickening involving the sigmoid colon and descending colon. 3: There is diverticulosis with no CT evidence of diverticulitis. 4: Remainder of this exam shows no other significant abnormality. Results of this report were discussed with ISAIAS Winn, via the telephone on 09/16/2021 at 1333 hours. Dictated by: Dictated on workstation # [id number]
[2021-09-16 14:07] LABS: BILIRUBIN,URINE NEGATIVE (NEGATIVE); CLARITY,URINE CLEAR; COLOR,URINE YELLOW; GLUCOSE, URINE (UA) NEGATIVE (NEGATIVE); KETONES,URINE NEGATIVE (NEGATIVE); LEUKOCYTE ESTERASE ,URINE NEGATIVE (NEGATIVE); NITRITE,URINE NEGATIVE (NEGATIVE); PROTEIN,URINE NEGATIVE (NEGATIVE)
[2021-09-16 14:19] LABS: BACTERIA,URINE NEGATIVE /HPF
--- NOTE | 2021-09-16 15:16 | Consultation-Cardiology ---
HPI-Cardiology Cardiology Consultation Date of Consultation 09/16/21 Date of Admission Time Seen by Provider: 15:10 Indication: Hx of CVA, cardiac clearance HPI Patient is a 76 y/o female, resident of [facility], presented to the ER after found to have Hgb of 6.7 on routine labwork. Per report patient has been having dark stools for the last several months. Complaining of increased fatigue, bloating and constipation. Denies any chest pain or dyspnea. Denies any dizziness or lightheadedness. No hx of CAD or CHF per patient. Home Medications & Allergies Allergies: Coded Allergies: Sulfa (Sulfonamide Antibiotics) (Unverified Allergy, Unknown, 12/02/20) Home Medication List Reviewed: Yes AKR-Wotvoi-Jadspb Hx Patient Social History Smoking Status: Former Smoker Type Used: Cigarettes Recent Hopitalizations: No Have you traveled recently?: No Alcohol Use?: No Immunizations Up To Date Tetanus Booster (TDap): Unknown Date of Pneumonia Vaccine: May 29, 2018 Date of Influenza Vaccine: Apr 10, 2018 Past Medical History CVA HTN Family Medical History Significant Family History: Heart Disease Family History: Alcoholism G8 BROTHER Cardiovascular disease 19 MOTHER Completed stroke 19 FATHER FH: throat cancer G8 SISTER Hypertension 19 MOTHER Myocardial infarction 19 MOTHER Review of Systems-General Review of Systems Constitutional: No chills, No diaphoresis, No fever, No malaise; weakness EENTM: No hearing loss, No double vision, No eye pain, No tearing, No throat pain, No throat swelling Respiratory: No cough, No dyspnea on exertion, No orthopnea, No short of breath Gastrointestinal: abdominal pain, constipation, other (Dark stool) Genitourinary: No decreased output, No discharge Musculoskeletal: No back pain, No joint pain Skin: change in color; No change in hair/nails All Other Systems Reviewed Negative Unless Noted: Yes Reviewed Test Results Reviewed Test Results Lab Laboratory Tests 09/16/21 12:24: White Blood Count 6.3, Red Blood Count 3.07L, Hemoglobin 6.9*L, Hematocrit 24L, Mean Corpuscular Volume 77L, Mean Corpuscular Hemoglobin 22L, Mean Corpuscular Hemoglobin Concent 29L, Red Cell Distribution Width 16.2H, Platelet Count 435H, Mean Platelet Volume 9.7, Immature Granulocyte % (Auto) 0, Neutrophils (%) (Auto) 77H, Lymphocytes (%) (Auto) 16, Monocytes (%) (Auto) 6, Eosinophils (%) (Auto) 1, Basophils (%) (Auto) 1, Neutrophils # (Auto) 4.9, Lymphocytes # (Auto) 1.0, Monocytes # (Auto) 0.4, Eosinophils # (Auto) 0.1, Basophils # (Auto) 0.0, Immature Granulocyte # (Auto) 0.0, Prothrombin Time 12.6, INR Comment 0.9, Activated Partial Thromboplast Time 26, Sodium Level 141, Potassium Level 4.2, Chloride Level 107, Carbon Dioxide Level 28, Anion Gap 6, Blood Urea Nitrogen 15, Creatinine 0.71, Estimat Glomerular Filtration Rate 88, BUN/Creatinine Ratio 21, Glucose Level 107H, Calcium Level 8.8, Corrected Calcium 9.3, Total Bilirubin 0.2, Aspartate Amino Transf (AST/SGOT) 15, Alanine Aminotransferase (ALT/SGPT) 8, Alkaline Phosphatase 52, Total Protein 6.1L, Albumin 3.4, Lipase 18 09/16/21 13:59: Urine Color YELLOW, Urine Clarity CLEAR, Urine pH 7.0, Urine Specific [place] 1.010L, Urine Protein NEGATIVE, Urine Glucose (UA) NEGATIVE, Urine Ketones NEGATIVE, Urine Nitrite NEGATIVE, Urine Bilirubin NEGATIVE, Urine Urobilinogen 0.2, Urine Leukocyte Esterase NEGATIVE, Urine RBC (Auto) NEGATIVE, Urine RBC NONE, Urine WBC 5-10H, Urine Squamous Epithelial Cells 2-5, Urine Renal Epithelial Cells NONE, Urine Crystals NONE, Urine Bacteria NEGATIVE, Urine Casts NONE, Urine Mucus NEGATIVE, Urine Culture Indicated NO Physical Exam Physical Exam Vital Signs Vital Signs - First Documented 09/16/21 12:10 Temp 36.3 Pulse 86 Resp 16 B/P (MAP) 145/90 (108) Pulse Ox 100 O2 Delivery Room Air Capillary Refill : Less Than 3 Seconds Height, Weight, BMI Height: 5'8.00" Weight: 160lbs. 0.0oz. 72.975346yw; 19.00 BMI Method:Stated General Appearance: No Apparent Distress, WD/WN, Other (pale skin) Eyes: Bilateral Eye Normal Inspection, Bilateral Eye PERRL, Bilateral Eye EOMI HEENT: PERRL/EOMI, TMs Normal, Normal ENT Inspection Neck: Full Range of Motion, Normal Inspection, Non Tender, Supple Respiratory: Chest Non Tender, Lungs Clear, No Accessory Muscle Use Cardiovascular: Regular Rate, Rhythm, No Edema, No Gallop, No JVD Gastrointestinal: Normal Bowel Sounds, No Organomegaly, No Pulsatile Mass, Soft, Tenderness (Diffuse tenderness) Genital/Rectal: Other (Hemoccult negative. Stool noted without evidence of impaction) Back: Normal Inspection, No CVA Tenderness Extremity: Normal Capillary Refill, Normal Inspection, Other (Strength deficits left side) Skin: Other (Pale skin, cool to touch) A/P-Cardiology Admission Diagnosis Colon mass Anemia Cryptogenic CVA HTN Assessment/Plan Colon mass- CT abd/pelvis done in ER today showing large lobulated heterogeneously enhancing mass in the pelvis which arises from the upper aspect of the proximal sigmoid colon. This is concerning for colon cancer. There are several small subcentimeter lymph nodes in the pelvis and iliac regions near the mass. There is no intestinal obstruction or intra-abdominal free fluid. There are no other areas concerning for metastatic disease. There are several areas of stool and/or colonic wall thickening involving the sigmoid colon and descending colon. Dr. Rivero consulted. Anemia, GI bleed secondary to colon mass. Transfuse as needed and continue to monitor. Management per medical services. 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 No arrhythmia has been detected so far. Hypertension, controlled, continue to monitor. Hyperlipidemia, continue to monitor. History of breast cancer. In remission History of Tobaccoism. Overall, patient is considered intermediate risk for perioperative cardiovascular complications. Risk vs benefit of procedure will be deferred to surgeon. Thank you for allowing us to participate in the management of Ms. Fernandez. This is Barbara Arias PA-C, as a scribe for Dr. Newby. Patient was seen and evaluated with Barbara, I interviewed and examined the patient and discussed the management plan Agree with the current scribed note Patient has a colon mass, work-up is in progress, possible surgery She has severe anemia requiring blood transfusion History of cryptogenic stroke, history of hypertension hyperlipidemia Okay with holding aspirin and Plavix, monitor H&H and transfuse as needed Restart home medication monitor blood pressure Overall patient is considered at intermediate risk for perioperative cardiovascular complication, risk versus benefit is deferred to the surgeon BARBARA URIBEb 23, 2022 15:16 DOROTHY NEWBY MD Sep 16, 2021 15:25
[2021-09-16] MEDS ORDERED: ONDANSETRON 4 MG (ZOFRAN) ORAL DISSOLVE TAB PO PRN (15:45)
[2021-09-16] MEDS ORDERED: MILK OF MAGNESIA 400 MG/5 ML 30 ML UDC PO PRN (15:45)
[2021-09-16] MEDS ORDERED: diphenhydrAMINE 50 MG/ML INJ (BENADRYL) IVP PRN (15:45)
[2021-09-16] MEDS ORDERED: NS IV 500 ML 500 ML IV SCH ×2 (15:45)
[2021-09-16] MEDS ORDERED: BISACODYL 10 MG SUPP (DULCOLAX) PR PRN (15:45)
[2021-09-16] MEDS ORDERED: CALCIUM CARBONATE 500 MG (TUMS) TAB.CHEW PO PRN (15:45)
[2021-09-16] MEDS ORDERED: LACTULOSE SYRUP 10GM/15ML (ENULOSE) 30ML UDC PO PRN (15:45)
[2021-09-16] MEDS ORDERED: polyethylene glycoL POWDER 17 GM (MIRALAX) PACK PO PRN (15:45)
[2021-09-16] MEDS ORDERED: ANTACID SUSP 30 ML UDC (MYLANTA) PO PRN (15:45)
[2021-09-16] MEDS ORDERED: diphenhydrAMINE 25 MG TAB (BENADRYL) PO PRN (15:45)
[2021-09-16 15:59] VITALS: BP 145/90
[2021-09-16] MEDS ORDERED: RT-ALBUTEROL SULF 2.5 MG/3 ML PRE-MIX VIAL INH PRN (16:00)
--- NOTE | 2021-09-16 16:40 | CONSULTATION REPORT ---
DATE OF SERVICE: 09/16/2021 HISTORY OF PRESENT ILLNESS: The patient is a 76-year-old female, who is a resident of [facility]. EMS was called and she was brought to the Emergency Department due to generalized weakness as well as noting dark tarry stools. Labs were drawn and she was found to be significantly anemic with hemoglobin of 6.2. She reports that she has had a longstanding history of generalized abdominal discomfort as well as a history of constipation. She also did have a stroke last year and does have some residual left-sided weakness. She does not report any fever, no chills as well as no nausea or vomiting. She did have a colonoscopy in 2007 where a small rectal polyp was identified, biopsied and found to be benign. She also does have a personal history of right-sided breast cancer, status post breast lumpectomy and sentinel node biopsy, which was negative. PAST MEDICAL HISTORY: Right breast cancer, hyperlipidemia, history of stroke, degenerative joint disease, history of constipation, dark tarry stools. PAST SURGICAL HISTORY: Right breast lumpectomy and sentinel node biopsy, bladder surgery, hysterectomy, bilateral cataracts. ALLERGIES: SULFA. MEDICATIONS: Aspirin 81 mg daily, atorvastatin 80 mg daily, citalopram 10 mg daily, enoxaparin 40 mg daily, loratadine 10 mg daily, lorazepam 0.5 mg t.i.d. p.r.n., nicotine CQ patch 40 mg q.24 hours, zolpidem 5 mg at bedtime p.r.n. SOCIAL HISTORY: Previous smoker, negative alcohol. FAMILY HISTORY: Noncontributory. VITAL SIGNS: Temperature 36.3, blood pressure 145/90, pulse 86, respirations 16, pulse ox 100% on room air. REVIEW OF SYSTEMS: This is a well-nourished female, currently in no acute distress. She is not experiencing any shortness of breath or difficulty breathing. No chest pain, palpitations, diaphoresis. Longstanding history of constipation and she also reports some dark tarry stools. She does not report any bright red blood per rectum. She also does have some crampy abdominal pain on an intermittent basis, likely due to constipation. No nausea or vomiting, no fever or chills, no recent inadvertent weight loss. All other review of systems negative. PHYSICAL EXAMINATION: CHEST: A few scattered wheezes bilaterally. HEART: Regular, no murmurs. EXTREMITIES: No lower extremity edema, negative Homans sign. HEENT: No scleral icterus. No cervical lymphadenopathy. ABDOMEN: Soft, nontender. There is a palpable mass in the lower quadrant of the abdomen. No hernias. SKIN: Warm, dry. LABORATORY DATA: WBC 6.3, hemoglobin 6.9, hematocrit 24, platelets 435. BUN 15, creatinine 0.75. Liver function enzymes are normal. ASSESSMENT AND PLAN: A 76-year-old female with anemia, dark tarry stools, longstanding history of constipation as well as a large sigmoid mass approximately 5.2 x 8.7 x 7.3 cm in size, which is concerning for malignancy. On this admission, we will first proceed with prepping her and scheduling her for an EGD and colonoscopy after adequate resuscitation for her anemia. Job ID: [id number] DocumentID: [id number] Dictated Date: 09/16/2021 16:08:36 Assistant Business Manager Date: 09/16/2021 16:39:52 Dictated By: CARSON VENEGAS MD
[2021-09-16 16:58] VITALS: BP 120/56
[2021-09-16] MEDS: NS IV 1000 ML 1,000 ML IV SCH (17:24)
[2021-09-16 17:27] VITALS: BP 131/62
[2021-09-16 17:50] VITALS: BP 124/56
[2021-09-16 19:43] VITALS: BP 125/60
[2021-09-16] MEDS: SENNOSIDES 8.6 MG (SENOKOT) TAB PO SCH (20:40)
[2021-09-16] MEDS: DOCUSATE SODIUM 100 MG (COLACE) CAP PO SCH (20:40)
[2021-09-17 00:20] VITALS: BP 136/63
[2021-09-17 03:40] VITALS: BP 115/56
[2021-09-17 06:03] LABS: BASOPHILS # (AUTO) 0.1 10^3/uL (0.0-0.1); BASOPHILS % (AUTO) 1 % (0-10); EOSINOPHILS # (AUTO) 0.2 10^3/uL (0.0-0.3); EOSINOPHILS % (AUTO) 3 % (0-10); HEMATOCRIT 27 % (35-52); LYMPHOCYTES # (AUTO) 1.8 10^3/uL (1.0-4.0); LYMPHOCYTES % (AUTO) 28 % (12-44); MEAN CORPUSCULAR HEMOGLOBIN 23 pg (25-34); MEAN CORPUSCULAR HGB CONC 30 g/dL (32-36); MEAN CORPUSCULAR VOLUME 77 fL (80-99); MEAN PLATELET VOLUME 9.6 fL (9.0-12.2); MONOCYTES # (AUTO) 0.5 10^3/uL (0.0-1.0); MONOCYTES % (AUTO) 7 % (0-12); NEUTROPHILS # (AUTO) 3.7 10^3/uL (1.8-7.8); NEUTROPHILS % (AUTO) 60 % (42-75); PLATELET COUNT 380 10^3/uL (130-400); WHITE BLOOD COUNT 6.2 10^3/uL (4.3-11.0)
[2021-09-17 06:29] LABS: ALBUMIN 2.9 GM/DL (3.2-4.5)
[2021-09-17 06:30] LABS: POTASSIUM 3.8 MMOL/L (3.6-5.0)
[2021-09-17 06:31] LABS: CALCIUM 8.4 MG/DL (8.5-10.1)
[2021-09-17 06:32] LABS: TOTAL PROTEIN 5.3 GM/DL (6.4-8.2)
[2021-09-17 06:34] LABS: BILIRUBIN,TOTAL 0.5 MG/DL (0.1-1.0)
[2021-09-17 06:36] LABS: CREATININE SERUM 0.71 MG/DL (0.60-1.30)
[2021-09-17 07:47] VITALS: BP 132/59
--- NOTE | 2021-09-17 08:34 | Cardiology Progress Note ---
Subjective Date Seen by Provider: Sep 17, 2021 Time Seen by Provider: 08:32 Subjective/Events-last exam Patient is sitting comfortably in bed, no chest pain was reported Review of Systems General: No Chills, No Night Sweats, No Fatigue, No Malaise, No Appetite, No Other HEENT: No Head Aches, No Visual Changes, No Eye Pain, No Ear Pain, No Dysphasia, No Sinus Congestion, No Post Nasal Drip, No Sore Throat, No Other Pulmonary: No Dyspnea, No Cough, No Pleuritic Chest Pain, No Other Cardiovascular: No: Chest Pain, Palpitations, Orthopnea, Paroxysmal Noc. Dyspnea, Edema, Lt Headedness, Other Objective-Cardiology Exam Last Set of Vital Signs Vital Signs 09/16/21 09/17/21 15:59 07:47 Temp 36.6 Pulse 68 Resp 20 B/P (MAP) 132/59 (83) Pulse Ox 96 O2 Delivery Room Air FiO2 21 I&O Intake and Output 09/17/21 00:00 Intake Total 400 ml Output Total 100 ml Balance 300 ml Intake Oral 400 ml Output Urine Total 100 ml # Voids 1 Daily Weight Change No General: Alert, Oriented X3, Cooperative HEENT: Atraumatic, PERRLA Neck: Supple, No JVD, No Thyromegaly Lungs: Clear to Auscultation, Normal Air Movement Heart: Regular Rate, Normal S1, Normal S2, No Murmurs Abdomen: Normal Bowel Sounds, Soft, No Tenderness, No Hepatosplenomegaly, No Masses Extremities: No Clubbing, No Cyanosis, No Edema, Normal Pulses, No Tenderness/Swelling Skin: No Rashes, No Breakdown, No Significant Lesion Neuro: Normal Gait, Normal Speech, Strength at 5/5 X4 Ext, Normal Tone, Sensation Intact Psych/Mental Status: Mental Status NL, Mood NL Results Lab Laboratory Tests 09/16/21 12:24 09/17/21 05:31 A/P-Cardiology Admission Diagnosis Colon mass Anemia Cryptogenic CVA HTN Assessment/Plan Colon mass- CT abd/pelvis done in ER today showing large lobulated heterogeneously enhancing mass in the pelvis which arises from the upper aspect of the proximal sigmoid colon. This is concerning for colon cancer. There are several small subcentimeter lymph nodes in the pelvis and iliac regions near the mass. There is no intestinal obstruction or intra-abdominal free fluid. There are no other areas concerning for metastatic disease. There are several areas of stool and/or colonic wall thickening involving the sigmoid colon and descending colon. Dr. Rivero consulted. Anemia, GI bleed secondary to colon mass. Transfuse as needed and continue to monitor. Management per medical services. 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 No arrhythmia has been detected so far. Hypertension, controlled, continue to monitor. Hyperlipidemia, continue to monitor. History of breast cancer. In remission History of Tobaccoism. Overall, patient is considered intermediate risk for perioperative cardiovascular complications. Risk vs benefit of procedure will be deferred to surgeon. DOROTHY RIVERA MD Sep 17, 2021 08:34
[2021-09-17] MEDS ORDERED: CITA20TA9 PO (09:20)
[2021-09-17] MEDS ORDERED: LORA10TA7 PO (09:20)
[2021-09-17] MEDS ORDERED: BISA5TAB8 PO (09:20)
[2021-09-17] MEDS ORDERED: DOCU100C37 PO (09:20)
[2021-09-17] MEDS ORDERED: MELA3TAB39 PO (09:20)
[2021-09-17] MEDS ORDERED: MAGN400O7 PO (09:20)
[2021-09-17] MEDS ORDERED: ATOR80TA76 PO (09:20)
[2021-09-17] MEDS ORDERED: CYAN500T8 PO (09:20)
[2021-09-17] MEDS ORDERED: MULT-1029 PO (09:20)
[2021-09-17] MEDS ORDERED: CALC600T91 PO (09:20)
[2021-09-17] MEDS: NS IV 1000 ML 1,000 ML IV SCH ×2 (09:29→14:03)
[2021-09-17] MEDS: MAGNESIUM CITRATE 300 ML BTL PO SCH ×2 (09:29→17:20)
[2021-09-17] MEDS: SENNOSIDES 8.6 MG (SENOKOT) TAB PO SCH ×2 (09:29→20:17)
[2021-09-17] MEDS: DOCUSATE SODIUM 100 MG (COLACE) CAP PO SCH ×2 (09:29→20:17)
--- NOTE | 2021-09-17 10:57 | History & Physical-Hospitalist ---
History of Present Illness HPI/Chief Complaint Chief complaint: Symptomatic anemia History of present illness: This is a 76-year-old white female known to me from prior CVA managed in inpatient rehab who presents to the ER with constipation and weakness found to have severe anemia requiring 1 unit of blood yesterday. Colon mass was noted on CT scan. Patient will undergo scopes. Source: patient Exam Limitations: no limitations Date Seen 09/17/21 Time Seen by a Provider: 11:00 Attending Physician Le Feng DO PCP No,Local Physician Referring Physician Date of Admission Sep 16, 2021 at 14:18 Home Medications & Allergies Home Medications Reviewed patient Home Medication Reconciliation performed by pharmacy medication reconciliations fire management technician and/or nursing. Patients Allergies have been reviewed. Allergies Allergies Coded Allergies Sulfa (Sulfonamide Antibiotics) (Unverified Allergy, Unknown, 12/02/20) Past Kfdyhgn-Muettj-Tbefky Hx Patient Social History Marrital Status: single Employed/Student: retired Tobacco Use?: No Smoking Status: Former Smoker Use of E-Cig and/or Vaping dev: No Substance use?: No Alcohol Use?: No Pt feels they are or have been: No Immunizations Up To Date Date of Influenza Vaccine: Apr 10, 2018 First/Initial COVID19 Vaccinat: UNK Second COVID19 Vaccination Vladimir: UNK Tetanus Booster (TDap): Unknown Hepatitis A: No Hepatitis B: No PED Vaccines UTD: No Date of Pneumonia Vaccine: May 29, 2018 Seasonal Allergies Seasonal Allergies: No Current Status status: No status: No Advance Directives: No Communicates: Verbally Primary Language: Croatian Preferred Spoken Language: Croatian Is interpretation needed?: No Implanted or Applied Medical D: Other Past Medical History Surgeries: Bladder Surgery, Hysterectomy Stroke Sexually Transmitted Disease: No Arthritis Breast What Type of Treatment Did You: Radiation, Surgical Intervention Blood Disorders: No none Family Medical History Alcoholism G8 BROTHER Cardiovascular disease 19 MOTHER Completed stroke 19 FATHER FH: throat cancer G8 SISTER Hypertension 19 MOTHER Myocardial infarction 19 MOTHER Heart Disease noncontributory Review of Systems Constitutional: see HPI, malaise, weakness EENTM: no symptoms reported Respiratory: no symptoms reported Cardiovascular: no symptoms reported Gastrointestinal: constipation Genitourinary: no symptoms reported Musculoskeletal: no symptoms reported Psychiatric/Neurological: No Symptoms Reported All Other Systems Reviewed Negative Unless Noted: Yes Physical Exam Physical Exam Vital Signs Vital Signs - First Documented 09/16/21 09/16/21 12:10 15:59 Temp 36.3 Pulse 86 Resp 16 B/P (MAP) 145/90 (108) Pulse Ox 100 O2 Delivery Room Air FiO2 21 Capillary Refill : Less Than 3 Seconds Height, Weight, BMI Height: 5'8.00" Weight: 160lbs. 0.0oz. [id number]; 19.60 BMI Method:Stated General Appearance: No Apparent Distress, Chronically ill, Thin Eyes: Right Eye Normal Inspection, Right Eye PERRL HEENT: PERRL/EOMI, TMs Normal, Normal ENT Inspection, Pharynx Normal, Moist Mucous Membranes Neck: Full Range of Motion, Normal Inspection, Non Tender Respiratory: Chest Non Tender, Lungs Clear, Normal Breath Sounds, No Accessory Muscle Use, No Respiratory Distress Cardiovascular: Regular Rate, Rhythm, No Edema, No Gallop, No JVD, No Murmur, Normal Peripheral Pulses Gastrointestinal: Normal Bowel Sounds, No Organomegaly, No Pulsatile Mass, Non Tender, Soft Back: Normal Inspection, No CVA Tenderness, No Vertebral Tenderness Extremity: Normal Capillary Refill, Normal Inspection, Normal Range of Motion, Non Tender, No Calf Tenderness, No Pedal Edema Neurologic/Psychiatric: Alert, Oriented x3, No Motor/Sensory Deficits, Normal Mood/Affect, Motor Weakness (Left-sided weakness) Skin: Normal Color, Warm/Dry Lymphatic: No Adenopathy Results Results/Procedures Labs Laboratory Tests 09/16/21 12:24 09/17/21 05:31 Patient resulted labs reviewed. Assessment/Plan Admission Diagnosis Assessment: Symptomatic anemia hemoglobin 6.8 status post 1 unit of blood Colon mass Recent constipation History of CVA with left-sided hemiparesis CAD Former smoker Plan: Cardiology eval Monitor hemoglobin Admission Status: Inpatient Order (span 2 midnights) Reason for Inpatient Admission: Colon mass Clinical Quality Measures DVT/VTE Risk/Contraindication: Other: LE Kincaid DO Sep 17, 2021 10:57
[2021-09-17 11:05] VITALS: BP 128/59
--- NOTE | 2021-09-17 14:11 | Progress Note-Pre Operative ---
Pre-Operative Progress Note H&P Reviewed The H&P was reviewed, patient examined and no changes noted. Date Seen by Provider: Sep 17, 2021 Time Seen by Provider: 14:00 Date H&P Reviewed: Sep 17, 2021 Time H&P Reviewed: 14:00 Pre-Operative Diagnosis: anemia, dark stools, colonic mass CARSON VENEGAS MD Sep 17, 2021 14:11
--- NOTE | 2021-09-17 14:11 | Progress Note ---
Subjective Date Seen by a Provider: Sep 17, 2021 Time Seen by a Provider: 14:00 Subjective/Events-last exam doing ok. mild abd pain. no nausea/vomiting and tolerating prep. hb stable Objective Exam Vital Signs Date Time Temp Pulse Resp B/P (MAP) Pulse Ox O2 Delivery O2 Flow Rate FiO2 09/17/21 11:05 36.8 85 18 128/59 (82) 94 Room Air 09/17/21 08:00 Room Air 09/17/21 07:47 36.6 68 20 132/59 (83) 96 Room Air 09/17/21 03:40 36.6 79 18 115/56 (75) 95 Room Air 09/17/21 00:20 36.5 76 18 136/63 (87) 96 Room Air 09/16/21 19:51 Room Air 09/16/21 19:43 35.5 84 18 125/60 (81) 100 Room Air 09/16/21 17:50 36.2 83 124/56 Room Air 09/16/21 17:39 Room Air 09/16/21 17:27 36.0 76 16 131/62 98 Room Air 09/16/21 16:58 36.5 95 18 120/56 (77) 99 Room Air 09/16/21 15:59 36.3 86 100 21 09/16/21 15:32 73 16 121/89 98 Room Air I & O 09/17/21 07:00 Intake Total 500 ml Output Total 350 ml Balance 150 ml Capillary Refill : Less Than 3 Seconds General Appearance: No Apparent Distress HEENT: PERRL/EOMI Neck: Full Range of Motion Respiratory: Chest Non Tender, Lungs Clear Cardiovascular: Regular Rate, Rhythm Gastrointestinal: normal bowel sounds, soft Extremity: Normal Capillary Refill Neurologic/Psychiatric: Alert, Oriented x3 Skin: Normal Color Lymphatic: No Adenopathy Results Lab Laboratory Tests 09/17/21 05:31: White Blood Count 6.2, Red Blood Count 3.45L, Hemoglobin 8.0L, Hematocrit 27L, Mean Corpuscular Volume 77L, Mean Corpuscular Hemoglobin 23L, Mean Corpuscular Hemoglobin Concent 30L, Red Cell Distribution Width 16.5H, Platelet Count 380, Mean Platelet Volume 9.6, Immature Granulocyte % (Auto) 0, Neutrophils (%) (Auto) 60, Lymphocytes (%) (Auto) 28, Monocytes (%) (Auto) 7, Eosinophils (%) (Auto) 3, Basophils (%) (Auto) 1, Neutrophils # (Auto) 3.7, Lymphocytes # (Auto) 1.8, Monocytes # (Auto) 0.5, Eosinophils # (Auto) 0.2, Basophils # (Auto) 0.1, Immature Granulocyte # (Auto) 0.0, Sodium Level 140, Potassium Level 3.8, Chloride Level 110H, Carbon Dioxide Level 23, Anion Gap 7, Blood Urea Nitrogen 11, Creatinine 0.71, Estimat Glomerular Filtration Rate 88, BUN/Creatinine Ratio 15, Glucose Level 87, Calcium Level 8.4L, Corrected Calcium 9.3, Total Bilirubin 0.5, Aspartate Amino Transf (AST/SGOT) 15, Alanine Aminotransferase (ALT/SGPT) 8, Alkaline Phosphatase 44, Total Protein 5.3L, Albumin 2.9L Assessment/Plan Assessment/Plan Assess & Plan/Chief Complaint anemia with dark stools and large colonic mass. schedule EGD and colo for tuesday(09/18) Clinical Quality Measures DVT/VTE Risk/Contraindication: Other: CARSON Hurtado MD Sep 17, 2021 14:10
[2021-09-17 15:25] VITALS: BP 122/63
[2021-09-17 19:38] VITALS: BP 128/67
[2021-09-17] MEDS ORDERED: FLEET ENEMA ADULT 1 EA BTL RC PRN (22:45)
[2021-09-18] VITALS (11 sets, daily range): BP systolic 114–141; BP diastolic 54–79
[2021-09-18] MEDS: ONDANSETRON 4 MG/2 ML (SDV) Z0FRAN IV PRN ×2 (00:01→13:31)
[2021-09-18 06:15] LABS: BASOPHILS % (AUTO) 0 % (0-10); EOSINOPHILS # (AUTO) 0.1 10^3/uL (0.0-0.3); EOSINOPHILS % (AUTO) 1 % (0-10); HEMATOCRIT 26 % (35-52); HEMOGLOBIN 7.6 g/dL (11.5-16.0); LYMPHOCYTES # (AUTO) 1.6 10^3/uL (1.0-4.0); LYMPHOCYTES % (AUTO) 18 % (12-44); MEAN CORPUSCULAR HEMOGLOBIN 23 pg (25-34); MEAN CORPUSCULAR HGB CONC 30 g/dL (32-36); MEAN CORPUSCULAR VOLUME 78 fL (80-99); MEAN PLATELET VOLUME 9.5 fL (9.0-12.2); MONOCYTES # (AUTO) 0.6 10^3/uL (0.0-1.0); MONOCYTES % (AUTO) 6 % (0-12); NEUTROPHILS # (AUTO) 6.5 10^3/uL (1.8-7.8); NEUTROPHILS % (AUTO) 74 % (42-75); PLATELET COUNT 359 10^3/uL (130-400); WHITE BLOOD COUNT 8.8 10^3/uL (4.3-11.0)
--- NOTE | 2021-09-18 06:21 | Progress Note - Hospitalist ---
Subjective HPI/CC On Admission Date Seen by Provider: Sep 18, 2021 Time Seen by Provider: 10:30 Chief complaint: Symptomatic anemia History of present illness: This is a 76-year-old white female known to me from prior CVA managed in inpatient rehab who presents to the ER with constipation and weakness found to have severe anemia requiring 1 unit of blood yesterday. Colon mass was noted on CT scan. Patient will undergo scopes. Subjective/Events-last exam Undergoing EGD and colonoscopy Colon mass confirmed Appreciate Dr. VENEGAS Labs stable Review of Systems General: Fatigue, Malaise Objective Exam Vital Signs Vital Signs Date Time Temp Pulse Resp B/P (MAP) Pulse Ox O2 Delivery O2 Flow Rate FiO2 09/19/21 03:20 37.2 72 18 127/58 (81) 92 Room Air 09/18/21 12:51 4 09/16/21 15:59 21 Capillary Refill : Less Than 3 Seconds General Appearance: No Apparent Distress, WD/WN, Chronically ill, Thin Respiratory: Lungs Clear Cardiovascular: Regular Rate, Rhythm Neurologic/Psychiatric: Alert, Oriented x3 Results/Procedures Lab Laboratory Tests 09/18/21 06:00 09/18/21 21:56 Patient resulted labs reviewed. Assessment/Plan Assessment and Plan Assess & Plan/Chief Complaint Assessment: Symptomatic anemia hemoglobin 6.8 status post 1 unit of blood Colon mass Recent constipation History of CVA with left-sided hemiparesis CAD Former smoker Plan: Cardiology eval Monitor hemoglobin 09/18/2021: Monitor hemoglobin Clinical Quality Measures DVT/VTE Risk/Contraindication: Other: MOHIT Kincaid DO Sep 18, 2021 06:21
[2021-09-18 06:25] LABS: ALBUMIN 2.8 GM/DL (3.2-4.5)
[2021-09-18 06:27] LABS: CALCIUM 8.2 MG/DL (8.5-10.1)
[2021-09-18 06:30] LABS: BILIRUBIN,TOTAL 0.3 MG/DL (0.1-1.0)
[2021-09-18 06:31] LABS: CREATININE SERUM 0.67 MG/DL (0.60-1.30)
[2021-09-18] MEDS: NS IV 1000 ML 1,000 ML IV SCH (06:33)
[2021-09-18] MEDS: MAGNESIUM CITRATE 300 ML BTL PO SCH (07:56)
[2021-09-18] MEDS: SENNOSIDES 8.6 MG (SENOKOT) TAB PO SCH ×2 (07:56→21:10)
[2021-09-18] MEDS: DOCUSATE SODIUM 100 MG (COLACE) CAP PO SCH ×2 (07:56→21:10)
[2021-09-18] MEDS ORDERED: LACTATED RINGERS 1,000 ML IV STA (10:25)
[2021-09-18] MEDS ORDERED: HURRICAINE EXT TUBE (BENZOCAINE) XX PRN (10:30)
[2021-09-18] MEDS ORDERED: LIDOCAINE JELLY 2% 6 ML SYRINGE MM PRN (10:30)
[2021-09-18] MEDS ORDERED: LACTATED RINGERS 1,000 ML IV ONE (10:42)
[2021-09-18] MEDS ORDERED: MIDAZOLAM 2 MG/2 ML (VERSED) VIAL ONE (11:40)
[2021-09-18] MEDS ORDERED: PROPOFOL INJECTION 50 ML IV ONE (11:40)
--- NOTE | 2021-09-18 11:40 | Cardiology Progress Note ---
Subjective Date Seen by Provider: Sep 18, 2021 Time Seen by Provider: 11:39 Subjective/Events-last exam Patient was seen at bedside, laying down comfortably. Feeling better. Review of Systems General: No Chills, No Night Sweats; Fatigue; No Malaise, No Appetite, No Other HEENT: No Head Aches, No Visual Changes, No Eye Pain, No Ear Pain, No Dysphasia, No Sinus Congestion, No Post Nasal Drip, No Sore Throat, No Other Pulmonary: No Dyspnea, No Cough, No Pleuritic Chest Pain, No Other Cardiovascular: No: Chest Pain, Palpitations, Orthopnea, Paroxysmal Noc. Dyspnea, Edema, Lt Headedness, Other Objective-Cardiology Exam Last Set of Vital Signs Vital Signs 09/16/21 09/18/21 15:59 08:14 Temp 36.9 Pulse 71 Resp 18 B/P (MAP) 117/56 (76) Pulse Ox 94 O2 Delivery Room Air FiO2 21 I&O Intake and Output 09/18/21 00:00 Intake Total 1120 ml Output Total 825 ml Balance 295 ml Intake Oral 1120 ml Output Urine Total 825 ml # Bowel Movements 1 General: Alert, Oriented X3, Cooperative HEENT: Atraumatic, PERRLA Neck: Supple, No JVD, No Thyromegaly Lungs: Clear to Auscultation, Normal Air Movement Heart: Regular Rate, Normal S1, Normal S2, No Murmurs Abdomen: Normal Bowel Sounds, Soft, No Tenderness, No Hepatosplenomegaly, No Masses Extremities: No Clubbing, No Cyanosis, No Edema, Normal Pulses, No Tenderne ss/Swelling Skin: No Rashes, No Breakdown, No Significant Lesion Neuro: Normal Gait, Normal Speech, Strength at 5/5 X4 Ext, Normal Tone, Sensation Intact Psych/Mental Status: Mental Status NL, Mood NL Results Lab Laboratory Tests 09/18/21 06:00 A/P-Cardiology Admission Diagnosis Colon mass Anemia Cryptogenic CVA HTN Assessment/Plan Colon mass- CT abd/pelvis done in ER today showing large lobulated heterogeneously enhancing mass in the pelvis which arises from the upper aspect of the proximal sigmoid colon. This is concerning for colon cancer. There are several small subcentimeter lymph nodes in the pelvis and iliac regions near the mass. There is no intestinal obstruction or intra-abdominal free fluid. There are no other areas concerning for metastatic disease. There are several areas of stool and/or colonic wall thickening involving the sigmoid colon and descending colon. Scheduled for EGD and colonoscopy today. Anemia, GI bleed secondary to colon mass. Transfuse as needed and continue to monitor. Management per medical services. 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 No arrhythmia has been detected so far. Hypertension, controlled, continue to monitor. Hyperlipidemia, continue to monitor. History of breast cancer. In remission History of Tobaccoism. DOROTHY RIVERA MD Sep 18, 2021 11:40
--- NOTE | 2021-09-18 13:08 | Progress Note-Post Operative ---
Post-Operative Progess Note Surgeon (s)/Valve Maker (s) Surgeon CARSON VENEGAS MD Valve Maker: none Pre-Operative Diagnosis anemia, dark stools, colonic mass Post-Operative Diagnosis reflux esophagitis(grade C), distal esophageal stricture, moderate gastritis. chronic stage 2 ext and int hemorrhoids, descending colonic mass. no active bleed. Procedure & Operative Findings Date of Procedure 09/18/21 Procedure Performed/Findings EGD with bx. colonoscopy with bx. Anesthesia Type mac Estimated Blood Loss Estimated blood loss (mL): minimal Specimens/Packing Specimens Removed ge jxn, antrum, descending colonic mass. CARSON VENGEAS MD Sep 18, 2021 13:08
[2021-09-18] MEDS ORDERED: NS 100 ML (IVPB) BAG IV ONE (13:15)
[2021-09-18] MEDS ORDERED: IOHEXOL 350 MG/ML 100 ML (OMNIPAQUE 350) VIAL IV ONE (13:15)
[2021-09-18] MEDS ORDERED: CATHETER FLUSH 10 ML SYR IV PRN (13:15)
[2021-09-18] MEDS ORDERED: HOLD METFORMIN - RECEIVED CONTRAST 20 ML VIAL IV SCH (13:15)
--- NOTE | 2021-09-18 13:25 | Anesthesia-General Post-Op ---
MAC Patient Condition Mental Status/LOC: Same as Preop Cardiovascular: Satisfactory Nausea/Vomiting: Absent Respiratory: Satisfactory Pain: Controlled Complications: Absent Post Op Complications Complications None Follow Up Care/Instructions Patient Instructions None needed. Anesthesiology Discharge Order Discharge Order Patient is doing well, no complaints, stable vital signs, no apparent adverse anesthesia problems. No complications reported per nursing. DONALD SORTO CRNA Sep 18, 2021 13:25
--- NOTE | 2021-09-18 16:10 | Diagnostic Imaging Report ---
PROCEDURE: CT chest with contrast only. TECHNIQUE: Multiple contiguous axial images were obtained through the chest after administration of intravenous contrast. Auto Exposure Controls were utilized during the CT exam to meet ALARA standards for radiation dose reduction. INDICATION: Breast cancer. The patient is post colonoscopy. FINDINGS: There is lower thoracic posterior mediastinal paraesophageal gas that dissects into the perigastric upper abdomen along its lesser curvature. There may be a small amount of left upper quadrant pneumoperitoneum; however, this may also be air within a bowel loop with that portion incompletely visualized. Dedicated abdominal/pelvic CT is recommended as further evaluation as viscus perforation cannot be excluded. There is no pneumothorax. There is no suspicious pulmonary nodularity or dominant lung mass. There is some partial atelectasis at the left base in the lower lobe as well as the lateral lingular segment. No features felt suggestive of pneumonia. The thoracic aorta is nonacute. No pathological-appearing thoracic lymph nodes. No chest wall abnormality. The axilla is unremarkable. There is likely some fat necrosis in the right breast. Portions of the left breast extend lateral to the [id number]. The internal mammary chains are unremarkable. No suspicious osseous lesion. No fracture is identified. IMPRESSION: 1. No findings to suggest thoracic involvement by metastatic disease. 2. Lower posterior mediastinal paraesophageal pneumomediastinum with upper abdominal perigastric extraluminal air and equivocal findings for an additional site of left upper quadrant subhepatic pneumoperitoneum. In light of recent colonoscopy, correlative abdominal/pelvic CT imaging is recommended as further evaluation. No visualized upper abdominal hemorrhage or loculated fluid collection. Voice mail at Dr. Rivero's office was left for a return call at 3:38 PM and again at 4:07 PM at which time the office was closed. The report was then faxed to Dr. Rivero's office by [email or web address] PM. Dictated by: Dictated on workstation # [id number]
[2021-09-18] MEDS ORDERED: PIPERACILLIN SODIUM/TAZOBACTAM 4.5 GM in NS (IVPB) 100 ML IV SCH (17:15)
--- NOTE | 2021-09-18 17:20 | Progress Note ---
Standard Progress Note Progress Notes/Assess & Plan Date Seen by a Provider: Sep 18, 2021 Time Seen by a Provider: 17:15 Progress/Assessment & Plan CT scan chest ordered as part of routine metastatic workup for likely large colon ca. s/p EGD with bx, dilatation, and colonoscopy with multiple biopsies, also severd diverticulosis. radiology recommend CT abd and pelvis with oral CT contrast however patient refused. clinically doing ok and has no complaints. no chest or abd pain. no fever/chills. no SOB. again recommendation made to proceed with contrast however pt adamately refuses. will start abx, NPO, serial labs and cxr as well as serial examinations. if clinical status worsens will have to transfer to tertiary center. CARSON VENEGAS MD Sep 18, 2021 17:20
[2021-09-18] MEDS ORDERED: PIPERACILLIN SODIUM/TAZOBACTAM 4.5 GM in NS (IVPB) 100 ML IV NR (17:30)
--- NOTE | 2021-09-18 18:10 | OPERATIVE REPORT ---
DATE OF SERVICE: 09/16/2021 ADMITTING PHYSICIAN: Dr. Feng. PREOPERATIVE DIAGNOSIS: Anemia, colonic mass identified on CT scan. POSTOPERATIVE DIAGNOSES: Reflux esophagitis, [place] grade C with a mild distal esophageal stricture, small hiatal hernia 2 cm in size, moderate severity gastritis. No distal obstructions. Chronic stage II external and internal hemorrhoids, moderate sigmoid diverticulosis. Descending colonic mass. PROCEDURE: EGD with biopsy and balloon dilatation, colonoscopy with biopsy. SURGEON: Carson Rivero MD ANESTHESIA: Monitored anesthesia care. ESTIMATED BLOOD LOSS: Minimal. FINDINGS: Same as postoperative diagnoses. DISPOSITION: The patient tolerated the procedure well. INDICATIONS: The patient is a 76-year-old female with significant past medical history and does have a history of breast cancer as well as a stroke and left-sided weakness approximately 6 months ago. She was found to be anemic and weak with a hemoglobin of 6.0. A CT scan was also performed, which did show a significant size colonic mass. She does not report any red blood per rectum nor any dark tarry stools. DESCRIPTION OF PROCEDURE: The patient was brought to the endoscopy suite, laid in the left lateral decubitus position. After adequate IV pain and sedative medications and monitored anesthesia care, the mouthpiece was applied. The endoscope was placed in the mouth, visualizing the pharynx and hypopharyngeal region. Vocal cords, epiglottis and vallecula identified and appeared to be normal. The endoscope was then gently intubated into the esophageal opening and esophagus insufflated. Endoscope was then advanced through the first, second and third portions of esophagus at the level of the GE junction, and reflux esophagitis, Stock[place] grade C identified with a distal esophageal stricture. A biopsy was taken of the region with forceps with visualization of good hemostasis. The endoscope was then advanced into the stomach and endoscope retroflexed, visualizing a small hiatal hernia approximately 2 cm in size. The Schatzki's ring was also identified on this view. A moderate gastritis was noted. No formal ulcerations, polyps, or any neoplasms. A biopsy was taken of the antrum to rule out H. pylori with visualization of good hemostasis. The endoscope was then advanced through the pylorus and the first and second portion of the duodenum, which appeared normal with no distal obstructions. The endoscope was then slowly withdrawn. The balloon was then placed in the stomach and pulled back to the area of stricture. We then proceeded in a gradual stepwise fashion from 2, 4, then eventually 5 atmospheres of pressure or approximately 19.5 mm in luminal diameter with moderate resistance and left this in place for 60 seconds. The balloon was then desufflated and removed with visualization of good hemostasis as well as no mucosal tears. Endoscope was then slowly withdrawn while taking a second look and suctioning of residual air with no additional findings. A digital rectal examination was performed, which revealed chronic stage II external and internal hemorrhoids, no bleeding. Normal sphincter tone was felt and there were no palpable masses. The endoscope was then intubated and anus and rectum gently insufflated. The endoscope was then advanced to the [facility] [place] of the rectum with no polyps or any neoplasms identified. Through the sigmoid colon, a moderate sigmoid diverticulosis identified. At approximately the descending colon, a nonobstructing mass was identified, which was friable and multiple biopsies were taken with forceps with visualization of good hemostasis. The endoscope was then advanced to the transverse colon, ascending colon to the cecum, which were normal. No other lesions identified. The endoscope was then slowly withdrawn while taking a second look and suctioning of residual air with no additional findings. The patient tolerated the procedure well. We will recommend the necessary lifestyle and dietary accommodation and have her start or continue PPI [place] if she is not already on one. The colonic mass is nonobstructing; however, due to the size of the lesion on CT scan, will eventually cause obstruction. This is also the likely cause of her anemia and once medically stable, we will schedule her for exploratory laparotomy, resection of the mass as well as placement of a central line. She will also need further workup for metastatic disease including CEA, comprehensive metabolic panel and a chest CT scan. Job ID: [id number] DocumentID: [id number] Dictated Date: 09/18/2021 12:51:38 Box Maker Date: 09/18/2021 18:09:49 Dictated By: CARSON RIVERO MD
[2021-09-18] MEDS ORDERED: PIPERACILLIN/TAZO 4.5 GM VIAL (ZOSYN) IV ONE (18:22)
[2021-09-18] MEDS: ACETAMINOPHEN 325 MG TABLET PO PRN (21:11)
[2021-09-18 22:09] LABS: BASOPHILS % (AUTO) 0 % (0-10); EOSINOPHILS # (AUTO) 0.1 10^3/uL (0.0-0.3); EOSINOPHILS % (AUTO) 1 % (0-10); HEMATOCRIT 27 % (35-52); HEMOGLOBIN 7.9 g/dL (11.5-16.0); LYMPHOCYTES # (AUTO) 1.1 10^3/uL (1.0-4.0); LYMPHOCYTES % (AUTO) 16 % (12-44); MEAN CORPUSCULAR HEMOGLOBIN 23 pg (25-34); MEAN CORPUSCULAR HGB CONC 30 g/dL (32-36); MEAN CORPUSCULAR VOLUME 79 fL (80-99); MONOCYTES # (AUTO) 0.4 10^3/uL (0.0-1.0); MONOCYTES % (AUTO) 6 % (0-12); NEUTROPHILS # (AUTO) 5.3 10^3/uL (1.8-7.8); NEUTROPHILS % (AUTO) 76 % (42-75); PLATELET COUNT 360 10^3/uL (130-400)
[2021-09-19] VITALS (8 sets, daily range): BP systolic 95–150; BP diastolic 56–89
[2021-09-19] MEDS: PIPERACILLIN SODIUM/TAZOBACTAM 4.5 GM in NS (IVPB) 100 ML IV SCH ×4 (00:04→23:22)
[2021-09-19] MEDS: ONDANSETRON 4 MG/2 ML (SDV) Z0FRAN IV PRN (02:54)
[2021-09-19] MEDS: NS IV 1000 ML 1,000 ML IV SCH (03:24)
[2021-09-19 06:01] LABS: BASOPHILS % (AUTO) 0 % (0-10); EOSINOPHILS # (AUTO) 0.1 10^3/uL (0.0-0.3); EOSINOPHILS % (AUTO) 1 % (0-10); HEMATOCRIT 27 % (35-52); HEMOGLOBIN 8.2 g/dL (11.5-16.0); LYMPHOCYTES # (AUTO) 0.5 10^3/uL (1.0-4.0); LYMPHOCYTES % (AUTO) 6 % (12-44); MEAN CORPUSCULAR HEMOGLOBIN 24 pg (25-34); MEAN CORPUSCULAR HGB CONC 30 g/dL (32-36); MEAN CORPUSCULAR VOLUME 78 fL (80-99); MEAN PLATELET VOLUME 9.6 fL (9.0-12.2); MONOCYTES # (AUTO) 0.3 10^3/uL (0.0-1.0); MONOCYTES % (AUTO) 3 % (0-12); NEUTROPHILS # (AUTO) 7.5 10^3/uL (1.8-7.8); NEUTROPHILS % (AUTO) 89 % (42-75); PLATELET COUNT 371 10^3/uL (130-400); WHITE BLOOD COUNT 8.4 10^3/uL (4.3-11.0)
[2021-09-19 06:19] LABS: ALBUMIN 2.7 GM/DL (3.2-4.5); POTASSIUM 3.9 MMOL/L (3.6-5.0)
[2021-09-19 06:20] LABS: CALCIUM 8.1 MG/DL (8.5-10.1)
[2021-09-19 06:23] LABS: BILIRUBIN,TOTAL 0.4 MG/DL (0.1-1.0)
[2021-09-19 06:25] LABS: CREATININE SERUM 0.75 MG/DL (0.60-1.30)
[2021-09-19 06:39] LABS: BAND NEUTROPHILS 2 %; ELLIPT/OVALOCYTES SLIGHT; EOSINOPHILS % (MANUAL) 1 %; HYPOCHROMASIA SLIGHT; LYMPHOCYTES % (MANUAL) 10 %; MICROCYTOSIS MODERATE; NEUTROPHILS % (MANUAL) 87 %
--- NOTE | 2021-09-19 07:35 | Progress Note - Hospitalist ---
Subjective HPI/CC On Admission Date Seen by Provider: Sep 19, 2021 Time Seen by Provider: 10:30 Chief complaint: Symptomatic anemia History of present illness: This is a 76-year-old white female known to me from prior CVA managed in inpatient rehab who presents to the ER with constipation and weakness found to have severe anemia requiring 1 unit of blood yesterday. Colon mass was noted on CT scan. Patient will undergo scopes. Subjective/Events-last exam Patient doing about the same Pneumoperitoneum does not seem to be symptomatic Blood pressure was a bit elevated when she moved around today She will need a colonic mass resection on Tuesday Family will talk to Dr. VENEGAS Hemoglobin is 8.2 Clear liquid diet advanced Review of Systems General: Fatigue, Malaise Gastrointestinal: Abdominal Pain Objective Exam Vital Signs Vital Signs Date Time Temp Pulse Resp B/P (MAP) Pulse Ox O2 Delivery O2 Flow Rate FiO2 09/20/21 03:21 37.1 56 20 110/55 (73) 94 Room Air 09/19/21 07:57 0.00 09/19/21 07:57 21 Capillary Refill : Less Than 3 Seconds General Appearance: No Apparent Distress, WD/WN, Chronically ill, Thin Respiratory: Lungs Clear, Normal Breath Sounds Cardiovascular: Regular Rate, Rhythm Neurologic/Psychiatric: Alert, Oriented x3 Results/Procedures Lab Patient resulted labs reviewed. Assessment/Plan Assessment and Plan Assess & Plan/Chief Complaint Assessment: Symptomatic anemia hemoglobin 6.8 status post 1 unit of blood Colon mass Recent constipation History of CVA with left-sided hemiparesis CAD Former smoker Plan: Cardiology eval Monitor hemoglobin 09/18/2021: Monitor hemoglobin 09/19/2021: Monitor hemoglobin Clinical Quality Measures DVT/VTE Risk/Contraindication: Other: MOHIT Kincaid DO Sep 19, 2021 07:35
--- NOTE | 2021-09-19 09:20 | Diagnostic Imaging Report ---
INDICATION: Pneumoperitoneum PA and lateral views of the chest are obtained with comparison made to study of 09/16/2021. There is mild left basilar atelectasis. Small amount of gas is seen beneath the left hemidiaphragm. There is bilateral air trapping in the lungs without evidence of pneumothorax. IMPRESSION: Left basilar atelectasis and mild residual pneumoperitoneum without other evidence of acute abnormality in the chest. Dictated by: Dictated on workstation # [id number]
[2021-09-19] MEDS: DOCUSATE SODIUM 100 MG (COLACE) CAP PO SCH ×2 (09:30→19:35)
[2021-09-19] MEDS: SENNOSIDES 8.6 MG (SENOKOT) TAB PO SCH ×2 (09:30→19:35)
--- NOTE | 2021-09-19 10:35 | Progress Note ---
Subjective Date Seen by a Provider: Sep 19, 2021 Time Seen by a Provider: 10:00 Subjective/Events-last exam doing ok. no signs peritonitis. no fever/chills. CEA elevated likely consistent with descending colon ca. Objective Exam Vital Signs Date Time Temp Pulse Resp B/P (MAP) Pulse Ox O2 Delivery O2 Flow Rate FiO2 09/19/21 08:00 Room Air 09/19/21 07:57 90 Room Air 0.00 09/19/21 07:57 37.0 77 90 21 09/19/21 07:22 37.0 75 18 110/56 (74) 93 Room Air 09/19/21 03:20 37.2 72 18 127/58 (81) 92 Room Air 09/19/21 00:06 37.6 76 18 137/63 (87) 96 Room Air 09/18/21 20:40 Room Air 09/18/21 19:30 37.1 73 20 120/60 (80) 96 Room Air 09/18/21 15:29 36.4 69 16 138/62 (87) 100 Room Air 09/18/21 13:29 35.9 73 18 126/60 (82) 94 Room Air 09/18/21 13:01 79 18 94 Room Air 09/18/21 12:56 75 18 100 Room Air 09/18/21 12:51 76 18 100 OxyMask 4 09/18/21 12:46 79 18 100 OxyMask 8 09/18/21 12:00 35.9 73 18 126/60 (82) 94 Room Air I & O 09/19/21 07:00 Intake Total 1640 ml Output Total 1425 ml Balance 215 ml Capillary Refill : Less Than 3 Seconds General Appearance: No Apparent Distress HEENT: PERRL/EOMI Neck: Full Range of Motion Respiratory: Chest Non Tender, Lungs Clear Cardiovascular: Regular Rate, Rhythm Gastrointestinal: normal bowel sounds, non tender, soft Extremity: Normal Capillary Refill Neurologic/Psychiatric: Alert, Oriented x3 Skin: Normal Color Lymphatic: No Adenopathy Results Lab Laboratory Tests 09/18/21 21:56: White Blood Count 7.0, Red Blood Count 3.41L, Hemoglobin 7.9L, Hematocrit 27L, Mean Corpuscular Volume 79L, Mean Corpuscular Hemoglobin 23L, Mean Corpuscular Hemoglobin Concent 30L, Red Cell Distribution Width 17.2H, Platelet Count 360, Mean Platelet Volume 9.0, Immature Granulocyte % (Auto) 0, Neutrophils (%) (Auto) 76H, Lymphocytes (%) (Auto) 16, Monocytes (%) (Auto) 6, Eosinophils (%) (Auto) 1, Basophils (%) (Auto) 0, Neutrophils # (Auto) 5.3, Lymphocytes # (Auto) 1.1, Monocytes # (Auto) 0.4, Eosinophils # (Auto) 0.1, Basophils # (Auto) 0.0, Immature Granulocyte # (Auto) 0.0 09/19/21 05:43: White Blood Count 8.4, Red Blood Count 3.49L, Hemoglobin 8.2L, Hematocrit 27L, Mean Corpuscular Volume 78L, Mean Corpuscular Hemoglobin 24L, Mean Corpuscular Hemoglobin Concent 30L, Red Cell Distribution Width 17.4H, Platelet Count 371, Mean Platelet Volume 9.6, Immature Granulocyte % (Auto) 0, Neutrophils (%) (Auto) 89H, Lymphocytes (%) (Auto) 6L, Monocytes (%) (Auto) 3, Eosinophils (%) (Auto) 1, Basophils (%) (Auto) 0, Neutrophils # (Auto) 7.5, Lymphocytes # (Auto) 0.5L, Monocytes # (Auto) 0.3, Eosinophils # (Auto) 0.1, Basophils # (Auto) 0.0, Immature Granulocyte # (Auto) 0.0, Neutrophils % (Manual) 87, Lymphocytes % (Manual) 10, Eosinophils % (Manual) 1, Band Neutrophils 2, Hypochromasia SLIGHT, Microcytosis MODERATE, Elliptocytes SLIGHT, Sodium Level 138, Potassium Level 3.9, Chloride Level 108H, Carbon Dioxide Level 23, Anion Gap 7, Blood Urea Nitrogen 11, Creatinine 0.75, Estimat Glomerular Filtration Rate 82, BUN/Creatinine Ratio 15, Glucose Level 102, Calcium Level 8.1L, Corrected Calcium 9.1, Total Bilirubin 0.4, Aspartate Amino Transf (AST/SGOT) 16, Alanine Aminotransferase (ALT/SGPT) 9, Alkaline Phosphatase 42, Total Protein 5.0L, Albumin 2.7L Assessment/Plan Assessment/Plan Assess & Plan/Chief Complaint anemia with dark stools and large colonic mass. reflux eosphagitis with stricture s/p bs and dilatation. descending colonic mass with extensive diverticulosis. small amount free air on CT chest yesterday however usure source. recommendation made to proceed with CT abd/pelvis but pt refused. patient stable with no signs abd pain/peritonitis. 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 likely to continue to be symptomatic. will offer her left hemicolectomy this week if she is willing. Clinical Quality Measures DVT/VTE Risk/Contraindication: Other: CARSON Hurtado MD Sep 19, 2021 10:35
--- NOTE | 2021-09-19 16:00 | Progress Note - Cardiology ---
Cardiology SOAP Progress Note Subjective: Gen malaise Does not report cp or palp or syncope or shortness of breath Does not report n/v Objective: I&O/Vital Signs 09/19/21 09/19/21 09/19/21 09/19/21 07:22 07:57 07:57 08:00 Temp 37.0 37.0 Pulse 75 77 Resp 18 B/P (MAP) 110/56 (74) Pulse Ox 93 90 90 O2 Delivery Room Air Room Air Room Air O2 Flow Rate 0.00 FiO2 21 09/19/21 09/19/21 11:14 11:24 Temp 36.9 Pulse 81 Resp 20 B/P (MAP) 150/89 (109) 118/72 (87) Pulse Ox 94 O2 Delivery Room Air 09/18/21 23:59 Intake Total 540 ml Output Total 1075 ml Balance -535 ml Weight (Pounds): 160 Weight (Ounces): 0.0 Weight (Calculated Kilograms): 72.682367 Constitutional: well-developed, other (thin-appearing, appropriately responsive) Respiratory: No accessory muscle use; other (good, bilateral air entry) Cardiovascular: regular rate-rhythm, systolic murmur (soft BARRETT at card base) Gastrointestional: No tender; soft; No guarding, No rebound; audible bowel sounds Extremities: No clubbing, No cyanosis, No significant edema Neurologic/Psychiatric: other (moves all limbs equally) Skin: No rash on exposed areas, No ulcerations on exposed areas Results/Procedures: Labs Laboratory Tests 09/18/21 21:56: White Blood Count 7.0, Red Blood Count 3.41L, Hemoglobin 7.9L, Hematocrit 27L, Mean Corpuscular Volume 79L, Mean Corpuscular Hemoglobin 23L, Mean Corpuscular Hemoglobin Concent 30L, Red Cell Distribution Width 17.2H, Platelet Count 360, Mean Platelet Volume 9.0, Immature Granulocyte % (Auto) 0, Neutrophils (%) (Auto) 76H, Lymphocytes (%) (Auto) 16, Monocytes (%) (Auto) 6, Eosinophils (%) (Auto) 1, Basophils (%) (Auto) 0, Neutrophils # (Auto) 5.3, Lymphocytes # (Auto) 1.1, Monocytes # (Auto) 0.4, Eosinophils # (Auto) 0.1, Basophils # (Auto) 0.0, Immature Granulocyte # (Auto) 0.0 09/19/21 05:43: White Blood Count 8.4, Red Blood Count 3.49L, Hemoglobin 8.2L, Hematocrit 27L, Mean Corpuscular Volume 78L, Mean Corpuscular Hemoglobin 24L, Mean Corpuscular Hemoglobin Concent 30L, Red Cell Distribution Width 17.4H, Platelet Count 371, Mean Platelet Volume 9.6, Immature Granulocyte % (Auto) 0, Neutrophils (%) (Auto) 89H, Lymphocytes (%) (Auto) 6L, Monocytes (%) (Auto) 3, Eosinophils (%) (Auto) 1, Basophils (%) (Auto) 0, Neutrophils # (Auto) 7.5, Lymphocytes # (Auto) 0.5L, Monocytes # (Auto) 0.3, Eosinophils # (Auto) 0.1, Basophils # (Auto) 0.0, Immature Granulocyte # (Auto) 0.0, Neutrophils % (Manual) 87, Lymphocytes % (Manual) 10, Eosinophils % (Manual) 1, Band Neutrophils 2, Hypochromasia SLIGHT, Microcytosis MODERATE, Elliptocytes SLIGHT, Sodium Level 138, Potassium Level 3.9, Chloride Level 108H, Carbon Dioxide Level 23, Anion Gap 7, Blood Urea Nitrogen 11, Creatinine 0.75, Estimat Glomerular Filtration Rate 82, BUN/Creatinine Ratio 15, Glucose Level 102, Calcium Level 8.1L, Corrected Calcium 9.1, Total Bilirubin 0.4, Aspartate Amino Transf (AST/SGOT) 16, Alanine Aminotransferase (ALT/SGPT) 9, Alkaline Phosphatase 42, Total Protein 5.0L, Albumin 2.7L Laboratory Tests 09/18/21 06:00 09/18/21 21:56 09/19/21 05:43 A/P: Assessment: Colon mass being managed by the Surg svce. Anemia, probably related to slow GI bleed, managed by Med and Surg svces Cryptogenic stroke in November 2020 - MRI showed posterior R frontal lobe stroke possibly in splenium of corpus collosum - Status post loop recorder implant. No arrhythmia has been detected so far. Monitored by Dr Newby Hypertension Hyperlipidemia History of breast cancer. In remission Former smoker Plan: I interviewed and examined the patient and reviewed her records Cardiac status appears clincally stable I spoke with her and her family and answered CV-related questions PAYAM MELENDEZ MD FACP FACC CCDS Sep 19, 2021 16:00
[2021-09-20] VITALS (7 sets, daily range): BP systolic 108–129; BP diastolic 54–65
[2021-09-20 06:45] LABS: BASOPHILS % (AUTO) 1 % (0-10); EOSINOPHILS # (AUTO) 0.3 10^3/uL (0.0-0.3); EOSINOPHILS % (AUTO) 5 % (0-10); HEMATOCRIT 28 % (35-52); HEMOGLOBIN 8.1 g/dL (11.5-16.0); LYMPHOCYTES # (AUTO) 1.6 10^3/uL (1.0-4.0); LYMPHOCYTES % (AUTO) 31 % (12-44); MEAN CORPUSCULAR HEMOGLOBIN 23 pg (25-34); MEAN CORPUSCULAR HGB CONC 29 g/dL (32-36); MEAN CORPUSCULAR VOLUME 79 fL (80-99); MEAN PLATELET VOLUME 9.7 fL (9.0-12.2); MONOCYTES # (AUTO) 0.4 10^3/uL (0.0-1.0); MONOCYTES % (AUTO) 8 % (0-12); NEUTROPHILS # (AUTO) 2.9 10^3/uL (1.8-7.8); NEUTROPHILS % (AUTO) 55 % (42-75); PLATELET COUNT 386 10^3/uL (130-400); WHITE BLOOD COUNT 5.2 10^3/uL (4.3-11.0)
[2021-09-20] MEDS: NS IV 1000 ML 1,000 ML IV SCH ×3 (06:53→23:43)
[2021-09-20 07:00] LABS: ALBUMIN 2.9 GM/DL (3.2-4.5)
[2021-09-20 07:01] LABS: POTASSIUM 3.8 MMOL/L (3.6-5.0)
[2021-09-20 07:02] LABS: CALCIUM 8.3 MG/DL (8.5-10.1)
[2021-09-20 07:03] LABS: TOTAL PROTEIN 5.2 GM/DL (6.4-8.2)
[2021-09-20 07:05] LABS: BILIRUBIN,TOTAL 0.4 MG/DL (0.1-1.0)
[2021-09-20 07:07] LABS: CREATININE SERUM 0.79 MG/DL (0.60-1.30)
--- NOTE | 2021-09-20 08:30 | Progress Note - Hospitalist ---
Subjective HPI/CC On Admission Date Seen by Provider: Sep 20, 2021 Time Seen by Provider: 12:15 Chief complaint: Symptomatic anemia History of present illness: This is a 76-year-old white female known to me from prior CVA managed in inpatient rehab who presents to the ER with constipation and weakness found to have severe anemia requiring 1 unit of blood yesterday. Colon mass was noted on CT scan. Patient will undergo scopes. Subjective/Events-last exam Patient doing fairly well Eating a bit today Plan for resection on Tuesday Review of Systems General: Fatigue, Malaise Objective Exam Vital Signs Vital Signs Date Time Temp Pulse Resp B/P (MAP) Pulse Ox O2 Delivery O2 Flow Rate FiO2 09/20/21 23:45 37.0 69 18 129/65 (86) 94 Room Air 09/19/21 07:57 0.00 09/19/21 07:57 21 Capillary Refill : Less Than 3 Seconds General Appearance: No Apparent Distress, WD/WN, Chronically ill, Thin Respiratory: Lungs Clear, Normal Breath Sounds Cardiovascular: Regular Rate, Rhythm Neurologic/Psychiatric: Alert, Oriented x3 Results/Procedures Lab Laboratory Tests 09/20/21 06:05 09/21/21 05:11 Patient resulted labs reviewed. Assessment/Plan Assessment and Plan Assess & Plan/Chief Complaint Assessment: Symptomatic anemia hemoglobin 6.8 status post 1 unit of blood Colon mass Recent constipation History of CVA with left-sided hemiparesis CAD Former smoker Plan: Cardiology eval Monitor hemoglobin 09/18/2021: Monitor hemoglobin 09/19/2021: Monitor hemoglobin 09/20/2021: Monitor hemoglobin Resection Tuesday Clinical Quality Measures DVT/VTE Risk/Contraindication: Other: MOHIT Kincaid DO Sep 20, 2021 08:30
--- NOTE | 2021-09-20 08:47 | Progress Note ---
Subjective Date Seen by a Provider: Sep 20, 2021 Time Seen by a Provider: 08:00 Subjective/Events-last exam doing ok. tolerating clears. no abd pain. having loose stools. hb has been stable. Objective Exam Vital Signs Date Time Temp Pulse Resp B/P (MAP) Pulse Ox O2 Delivery O2 Flow Rate FiO2 09/20/21 08:07 36.8 60 16 108/54 (72) 94 Room Air 09/20/21 07:45 Room Air 09/20/21 03:21 37.1 56 20 110/55 (73) 94 Room Air 09/20/21 00:00 36.8 65 17 117/62 (80) 93 Room Air 09/19/21 19:40 Room Air 09/19/21 19:33 36.2 72 18 114/57 (76) 95 Room Air 09/19/21 15:30 36.3 92 18 95/56 (69) 95 Room Air 09/19/21 11:24 118/72 (87) 09/19/21 11:14 36.9 81 20 150/89 (109) 94 Room Air I & O 09/20/21 07:00 Intake Total 540 ml Output Total 475 ml Balance 65 ml Capillary Refill : Less Than 3 Seconds General Appearance: No Apparent Distress HEENT: PERRL/EOMI Neck: Full Range of Motion Respiratory: Chest Non Tender, Lungs Clear Cardiovascular: Regular Rate, Rhythm Gastrointestinal: normal bowel sounds, non tender, soft Extremity: Normal Capillary Refill Neurologic/Psychiatric: Alert, Oriented x3 Skin: Normal Color Lymphatic: No Adenopathy Results Lab Laboratory Tests 09/20/21 06:05: White Blood Count 5.2, Red Blood Count 3.51L, Hemoglobin 8.1L, Hematocrit 28L, Mean Corpuscular Volume 79L, Mean Corpuscular Hemoglobin 23L, Mean Corpuscular Hemoglobin Concent 29L, Red Cell Distribution Width 17.5H, Platelet Count 386, Mean Platelet Volume 9.7, Immature Granulocyte % (Auto) 0, Neutrophils (%) (Auto) 55, Lymphocytes (%) (Auto) 31, Monocytes (%) (Auto) 8, Eosinophils (%) (Auto) 5, Basophils (%) (Auto) 1, Neutrophils # (Auto) 2.9, Lymphocytes # (Auto) 1.6, Monocytes # (Auto) 0.4, Eosinophils # (Auto) 0.3, Basophils # (Auto) 0.0, Immature Granulocyte # (Auto) 0.0, Sodium Level 141, Potassium Level 3.8, Chloride Level 108H, Carbon Dioxide Level 25, Anion Gap 8, Blood Urea Nitrogen 12, Creatinine 0.79, Estimat Glomerular Filtration Rate 77, BUN/Creatinine Ratio 15, Glucose Level 83, Calcium Level 8.3L, Corrected Calcium 9.2, Total Bilirubin 0.4, Aspartate Amino Transf (AST/SGOT) 18, Alanine Aminotransferase (ALT/SGPT) 7, Alkaline Phosphatase 43, Total Protein 5.2L, Albumin 2.9L Assessment/Plan Assessment/Plan Assess & Plan/Chief Complaint anemia with dark stools and large colonic mass. reflux eosphagitis with stricture s/p bs and dilatation. descending colonic mass with extensive diverticulosis. small amount free air on CT chest yesterday however usure source. recommendation made to proceed with CT abd/pelvis but pt refused. patient stable with no signs abd pain/peritonitis. 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 likely to continue to be symptomatic. will offer her left hemicolectomy this week if she is willing. plan discussed with patient and family and will proceed with left hemicolectomy tuesday(09/22). dys3 diet for now. Clinical Quality Measures DVT/VTE Risk/Contraindication: Other: CARSON Hurtado MD Sep 20, 2021 08:47
[2021-09-20] MEDS: PIPERACILLIN SODIUM/TAZOBACTAM 4.5 GM in NS (IVPB) 100 ML IV SCH ×3 (09:00→23:43)
[2021-09-20] MEDS: DOCUSATE SODIUM 100 MG (COLACE) CAP PO SCH ×2 (09:16→19:38)
[2021-09-20] MEDS: SENNOSIDES 8.6 MG (SENOKOT) TAB PO SCH ×2 (09:16→19:38)
[2021-09-20] MEDS ORDERED: HOLD METFORMIN - RECEIVED CONTRAST 20 ML VIAL IV SCH (09:30)
[2021-09-20] MEDS ORDERED: NS 100 ML (IVPB) BAG IV ONE (09:30)
[2021-09-20] MEDS ORDERED: IOHEXOL 350 MG/ML 100 ML (OMNIPAQUE 350) VIAL IV ONE (09:30)
[2021-09-20] MEDS ORDERED: DIATRIZOATE MEGLUM/SODIUM 37% 120 ML (GASTROGRAFIN) NG ONE (09:30)
[2021-09-20] MEDS: LORazepam INJ 2 MG/ML (ATIVAN) VIAL IVP PRN (10:30)
--- NOTE | 2021-09-20 10:50 | Diagnostic Imaging Report ---
EXAMINATION: CT abdomen and pelvis without contrast. TECHNIQUE: Multiple contiguous axial images were obtained through the abdomen and pelvis without the use of intravenous contrast. All CT scans use one or more of the following dose optimizing techniques: automated exposure control, MA and/or KvP adjustment based on patient size and exam type or iterative reconstruction. HISTORY: Recent colonoscopy with a small amount of free air COMPARISON: 09/16/2021 FINDINGS: Limited views of the lower thorax show small bilateral pleural effusions and coronary artery calcifications. The liver is normal without focal lesion. There is no biliary ductal dilation. There is sludge or excreted contrast in the gallbladder. Pancreas is normal. Spleen is normal. Adrenal glands are normal. The kidneys are normal. There is no hydronephrosis. Bladder is decompressed by Lane catheter. There is a 6.7 x 5.1 cm mass in the sigmoid colon extending into the sigmoid colon mesentery. Evaluation for mesenteric lymph nodes is limited due to motion artifact. There is a small amount of free fluid. There is pneumomediastinum. No free air is seen. No abdominal or pelvic lymphadenopathy. 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 There are no suspicious osseus lesions. IMPRESSION: 1. Pneumomediastinum, no free air is seen in the abdomen previously seen peritoneal gas is no longer apparent. 2. Large sigmoid colon mass. Dictated by: Dictated on workstation # [id number]
--- NOTE | 2021-09-20 15:59 | Progress Note - Cardiology ---
Cardiology SOAP Progress Note Subjective: Somnolent. Wakens but does not report any symptoms Objective: I&O/Vital Signs 09/20/21 09/20/21 09/20/21 09/20/21 07:45 08:00 08:07 11:55 Temp 36.8 36.5 Pulse 60 70 Resp 16 18 B/P (MAP) 108/54 (72) 126/62 (83) Pulse Ox 94 90 O2 Delivery Room Air Room Air Room Air Room Air 09/20/21 15:30 Temp 36.2 Pulse 75 Resp 16 B/P (MAP) 119/65 (83) Pulse Ox 95 O2 Delivery Room Air 09/20/21 00:00 Intake Total 540 ml Output Total 325 ml Balance 215 ml Weight (Pounds): 160 Weight (Ounces): 0.0 Weight (Calculated Kilograms): 72.229287 Constitutional: well-developed, other (thin-appearing, appropriately responsive) Respiratory: No accessory muscle use; other (good, bilateral air entry) Cardiovascular: regular rate-rhythm, systolic murmur (soft BARRETT at card base) Gastrointestional: No tender; soft; No guarding, No rebound; audible bowel sounds Extremities: No clubbing, No cyanosis, No significant edema Neurologic/Psychiatric: other (moves all limbs equally) Skin: No rash on exposed areas, No ulcerations on exposed areas Results/Procedures: Labs Laboratory Tests 09/20/21 06:05: White Blood Count 5.2, Red Blood Count 3.51L, Hemoglobin 8.1L, Hematocrit 28L, Mean Corpuscular Volume 79L, Mean Corpuscular Hemoglobin 23L, Mean Corpuscular Hemoglobin Concent 29L, Red Cell Distribution Width 17.5H, Platelet Count 386, Mean Platelet Volume 9.7, Immature Granulocyte % (Auto) 0, Neutrophils (%) (Auto) 55, Lymphocytes (%) (Auto) 31, Monocytes (%) (Auto) 8, Eosinophils (%) (Auto) 5, Basophils (%) (Auto) 1, Neutrophils # (Auto) 2.9, Lymphocytes # (Auto) 1.6, Monocytes # (Auto) 0.4, Eosinophils # (Auto) 0.3, Basophils # (Auto) 0.0, Immature Granulocyte # (Auto) 0.0, Sodium Level 141, Potassium Level 3.8, Chloride Level 108H, Carbon Dioxide Level 25, Anion Gap 8, Blood Urea Nitrogen 12, Creatinine 0.79, Estimat Glomerular Filtration Rate 77, BUN/Creatinine Ratio 15, Glucose Level 83, Calcium Level 8.3L, Corrected Calcium 9.2, Total Bilirubin 0.4, Aspartate Amino Transf (AST/SGOT) 18, Alanine Aminotransferase (ALT/SGPT) 7, Alkaline Phosphatase 43, Total Protein 5.2L, Albumin 2.9L Laboratory Tests 09/18/21 21:56 09/19/21 05:43 09/20/21 06:05 A/P: Assessment: Colon mass being managed by the Surg svce. Anemia, probably related to slow GI bleed, managed by Med and Surg svces Cryptogenic stroke in November 2020 - MRI showed posterior R frontal lobe stroke possibly in splenium of corpus collosum - Status post loop recorder implant. No arrhythmia has been detected so far. Monitored by Dr Newby Hypertension, controlled Hyperlipidemia History of breast cancer. In remission Former smoker Plan: Hemicolectomy planned by the Surg svce next week Patience-operative cardiac risk is estimated to be intermediate Monitor labs PAYAM MELENDEZ MD FACP FAC CCDS Sep 20, 2021 15:59
[2021-09-21 05:25] LABS: BASOPHILS % (AUTO) 1 % (0-10); EOSINOPHILS # (AUTO) 0.2 10^3/uL (0.0-0.3); EOSINOPHILS % (AUTO) 4 % (0-10); HEMATOCRIT 26 % (35-52); HEMOGLOBIN 7.5 g/dL (11.5-16.0); LYMPHOCYTES # (AUTO) 1.7 10^3/uL (1.0-4.0); LYMPHOCYTES % (AUTO) 28 % (12-44); MEAN CORPUSCULAR HEMOGLOBIN 23 pg (25-34); MEAN CORPUSCULAR HGB CONC 29 g/dL (32-36); MEAN CORPUSCULAR VOLUME 79 fL (80-99); MEAN PLATELET VOLUME 9.8 fL (9.0-12.2); MONOCYTES # (AUTO) 0.5 10^3/uL (0.0-1.0); MONOCYTES % (AUTO) 9 % (0-12); NEUTROPHILS # (AUTO) 3.5 10^3/uL (1.8-7.8); NEUTROPHILS % (AUTO) 59 % (42-75); PLATELET COUNT 355 10^3/uL (130-400); WHITE BLOOD COUNT 5.9 10^3/uL (4.3-11.0)
[2021-09-21 05:35] LABS: ALBUMIN 2.6 GM/DL (3.2-4.5)
[2021-09-21 05:36] LABS: POTASSIUM 3.8 MMOL/L (3.6-5.0)
[2021-09-21 05:38] LABS: TOTAL PROTEIN 4.8 GM/DL (6.4-8.2)
[2021-09-21 05:40] LABS: BILIRUBIN,TOTAL 0.2 MG/DL (0.1-1.0)
[2021-09-21 05:42] LABS: CREATININE SERUM 0.78 MG/DL (0.60-1.30)
[2021-09-21 07:48] VITALS: BP 112/64
--- NOTE | 2021-09-21 08:56 | Cardiology Progress Note ---
Subjective Date Seen by Provider: Sep 21, 2021 Time Seen by Provider: 08:55 Subjective/Events-last exam Patient is laying down in bed, no new complaint. No chest pain. Review of Systems General: No Chills, No Night Sweats; Fatigue, Malaise; No Appetite, No Other HEENT: No Head Aches, No Visual Changes, No Eye Pain, No Ear Pain, No Dysphasia, No Sinus Congestion, No Post Nasal Drip, No Sore Throat, No Other Pulmonary: No Dyspnea, No Cough, No Pleuritic Chest Pain, No Other Cardiovascular: No: Chest Pain, Palpitations, Orthopnea, Paroxysmal Noc. Dyspnea, Edema, Lt Headedness, Other Objective-Cardiology Exam Last Set of Vital Signs Vital Signs 09/19/21 09/21/21 07:57 07:48 Temp 37.0 Pulse 82 Resp 20 B/P (MAP) 112/64 (80) Pulse Ox 93 O2 Delivery Room Air O2 Flow Rate 0.00 FiO2 21 I&O Intake and Output 09/21/21 00:00 Intake Total 3680 ml Output Total 775 ml Balance 2905 ml Intake Oral 580 ml IV Total 3100 ml Output Urine Total 775 ml # Bowel Movements 3 General: Alert, Oriented X3, Cooperative HEENT: Atraumatic, PERRLA Neck: Supple, No JVD, No Thyromegaly Lungs: Clear to Auscultation, Normal Air Movement Heart: Regular Rate, Normal S1, Normal S2, No Murmurs Abdomen: Normal Bowel Sounds, Soft, No Tenderness, No Hepatosplenomegaly, No Masses Extremities: No Clubbing, No Cyanosis, No Edema, Normal Pulses, No Tenderness/Swelling Skin: No Rashes, No Breakdown, No Significant Lesion Neuro: Normal Gait, Normal Speech, Strength at 5/5 X4 Ext, Normal Tone, Sensation Intact Psych/Mental Status: Mental Status NL, Mood NL Results Lab Laboratory Tests 09/21/21 05:11 A/P-Cardiology Admission Diagnosis Colon mass Anemia Cryptogenic CVA HTN Assessment/Plan Colon mass- CT abd/pelvis done in ER today showing large lobulated heterogeneo usly enhancing mass in the pelvis which arises from the upper aspect of the proximal sigmoid colon. This is concerning for colon cancer. There are several small subcentimeter lymph nodes in the pelvis and iliac regions near the mass. There is no intestinal obstruction or intra-abdominal free fluid. There are no other areas concerning for metastatic disease. There are several areas of stool and/or colonic wall thickening involving the sigmoid colon and descending colon. Managed by medical team. Anemia, GI bleed secondary to colon mass. Transfuse as needed and continue to monitor. Management per medical services. 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 No arrhythmia has been detected so far. Hypertension, controlled, continue to monitor. Hyperlipidemia, continue to monitor. History of breast cancer. In remission History of Tobaccoism. DOROTHY RIVERA MD Sep 21, 2021 08:56
[2021-09-21] MEDS: PIPERACILLIN SODIUM/TAZOBACTAM 4.5 GM in NS (IVPB) 100 ML IV SCH ×2 (09:23→17:04)
[2021-09-21] MEDS: SENNOSIDES 8.6 MG (SENOKOT) TAB PO SCH ×2 (09:23→19:55)
[2021-09-21] MEDS: DOCUSATE SODIUM 100 MG (COLACE) CAP PO SCH ×4 (09:23→19:55)
[2021-09-21] MEDS ORDERED: MAGNESIUM CITRATE 300 ML BTL PO ONE (11:00)
[2021-09-21 11:05] VITALS: BP 145/70
--- NOTE | 2021-09-21 12:40 | Progress Note ---
Subjective Subjective/Events-last exam Afebrile, states she is feeling okay. She is wondering if she will need to have radiation after surgery if it shows colon cancer. She mentions that she doesn't want to have chemotherapy even if that were recommended. Objective Exam Last Set of Vital Signs Vital Signs Date Time Temp Pulse Resp B/P (MAP) Pulse Ox O2 Delivery O2 Flow Rate FiO2 09/21/21 11:05 37.0 64 20 145/70 (95) 95 Room Air 09/19/21 07:57 0.00 09/19/21 07:57 21 Capillary Refill : Less Than 3 Seconds I&O Intake and Output 09/20/21 23:59 Intake Total 3680 ml Output Total 775 ml Balance 2905 ml Intake Oral 580 ml IV Total 3100 ml Output Urine Total 775 ml # Bowel Movements 3 General: Alert, Oriented X3 Heart: Regular Rate, No Murmurs Abdomen: Normal Bowel Sounds, Soft Extremities: No Edema Neuro: Other (slow speech, tardive type movements of upper body throughout visit) Psych/Mental Status: Mental Status NL, Mood NL Results/Procedures Lab Laboratory Tests 09/20/21 20:20: Glucometer 128H 09/21/21 05:11: White Blood Count 5.9, Red Blood Count 3.27L, Hemoglobin 7.5L, Hematocrit 26L, Mean Corpuscular Volume 79L, Mean Corpuscular Hemoglobin 23L, Mean Corpuscular Hemoglobin Concent 29L, Red Cell Distribution Width 17.5H, Platelet Count 355, Mean Platelet Volume 9.8, Immature Granulocyte % (Auto) 0, Neutrophils (%) (Auto) 59, Lymphocytes (%) (Auto) 28, Monocytes (%) (Auto) 9, Eosinophils (%) (Auto) 4, Basophils (%) (Auto) 1, Neutrophils # (Auto) 3.5, Lymphocytes # (Auto) 1.7, Monocytes # (Auto) 0.5, Eosinophils # (Auto) 0.2, Basophils # (Auto) 0.0, Immature Granulocyte # (Auto) 0.0, Sodium Level 141, Potassium Level 3.8, Chloride Level 111H, Carbon Dioxide Level 21, Anion Gap 9, Blood Urea Nitrogen 12, Creatinine 0.78, Estimat Glomerular Filtration Rate 79, BUN/Creatinine Ratio 15, Glucose Level 98, Calcium Level 8.0L, Corrected Calcium 9.1, Total Bilirubin 0.2, Aspartate Amino Transf (AST/SGOT) 15, Alanine Aminotransferase (ALT/SGPT) 7, Alkaline Phosphatase 37L, Total Protein 4.8L, Albumin 2.6L Assessment/Plan Assessment/Plan (1) Mass of colon Status: Acute Assessment & Plan: Plan for resection tomorrow, discussed that if results are consistent with cancer, will then discuss the options moving forward, she states she wouldn't want chemo, briefly discussed hospice services, but recommended further discussion after more information available. (2) Anemia Status: Acute Assessment & Plan: Suspect secondary to GI bleed/colon mass. Hemoglobin stable low, monitor closely. s/p 1 unit transfusion this hospitalization. Qualifiers: (3) HTN (hypertension) Status: Chronic (4) HLD (hyperlipidemia) Status: Chronic (5) History of stroke Status: Chronic Assessment & Plan: October 2020, reports she was in rehab for 4 months, now in assisting living for last 4 months. (6) DVT prophylaxis Status: Acute Assessment & Plan: On hold for surgery tomorrow. Clinical Quality Measures DVT/VTE Risk/Contraindication: Other: ANGLE Julian MD Sep 21, 2021 12:40
[2021-09-21 15:38] VITALS: BP 155/78
--- NOTE | 2021-09-21 16:30 | Progress Note ---
Subjective Date Seen by a Provider: Sep 21, 2021 Time Seen by a Provider: 16:00 Subjective/Events-last exam doing ok. tolerating prep. no abd pain. no fever/chills. having relatively loose stools. Objective Exam Vital Signs Date Time Temp Pulse Resp B/P (MAP) Pulse Ox O2 Delivery O2 Flow Rate FiO2 09/21/21 15:38 38.0 66 16 155/78 (103) 95 Room Air 09/21/21 11:05 37.0 64 20 145/70 (95) 95 Room Air 09/21/21 07:48 37.0 82 20 112/64 (80) 93 Room Air 09/21/21 07:30 Room Air 09/20/21 23:45 37.0 69 18 129/65 (86) 94 Room Air 09/20/21 20:02 37.4 74 18 114/59 (77) 96 Room Air 09/20/21 19:34 Room Air I & O 09/21/21 07:00 Intake Total 3880 ml Output Total 875 ml Balance 3005 ml Capillary Refill : Less Than 3 Seconds General Appearance: No Apparent Distress HEENT: PERRL/EOMI Neck: Full Range of Motion Respiratory: Chest Non Tender, Lungs Clear, Normal Breath Sounds Cardiovascular: Regular Rate, Rhythm Gastrointestinal: normal bowel sounds, non tender, soft Extremity: Normal Capillary Refill Neurologic/Psychiatric: Alert, Oriented x3 Skin: Normal Color Lymphatic: No Adenopathy Results Lab Laboratory Tests 09/20/21 20:20: Glucometer 128H 09/21/21 05:11: White Blood Count 5.9, Red Blood Count 3.27L, Hemoglobin 7.5L, Hematocrit 26L, Mean Corpuscular Volume 79L, Mean Corpuscular Hemoglobin 23L, Mean Corpuscular Hemoglobin Concent 29L, Red Cell Distribution Width 17.5H, Platelet Count 355, Mean Platelet Volume 9.8, Immature Granulocyte % (Auto) 0, Neutrophils (%) (Auto) 59, Lymphocytes (%) (Auto) 28, Monocytes (%) (Auto) 9, Eosinophils (%) (Auto) 4, Basophils (%) (Auto) 1, Neutrophils # (Auto) 3.5, Lymphocytes # (Auto) 1.7, Monocytes # (Auto) 0.5, Eosinophils # (Auto) 0.2, Basophils # (Auto) 0.0, Immature Granulocyte # (Auto) 0.0, Sodium Level 141, Potassium Level 3.8, Chloride Level 111H, Carbon Dioxide Level 21, Anion Gap 9, Blood Urea Nitrogen 12, Creatinine 0.78, Estimat Glomerular Filtration Rate 79, BUN/Creatinine Ratio 15, Glucose Level 98, Calcium Level 8.0L, Corrected Calcium 9.1, Total Bilirubin 0.2, Aspartate Amino Transf (AST/SGOT) 15, Alanine Aminotransferase (ALT/SGPT) 7, Alkaline Phosphatase 37L, Total Protein 4.8L, Albumin 2.6L 09/21/21 12:39: Lab Scanned Report Transfusion Reaction Form Assessment/Plan Assessment/Plan Assess & Plan/Chief Complaint anemia with dark stools and large colonic mass. reflux eosphagitis with stricture s/p bs and dilatation. descending colonic mass with extensive diverticulosis. small amount free air on CT chest yesterday however usure source. recommendation made to proceed with CT abd/pelvis but pt refused. patient stable with no signs abd pain/peritonitis. 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 likely to continue to be symptomatic. will offer her left hemicolectomy this week if she is willing. plan discussed with patient and family and will proceed with left hemicolectomy tuesday(09/22). dys3 diet for now. Clinical Quality Measures DVT/VTE Risk/Contraindication: Other: CARSON Hurtado MD Sep 21, 2021 16:30
[2021-09-21] MEDS: ACETAMINOPHEN 325 MG TABLET PO PRN (17:05)
[2021-09-21] MEDS: NYSTATIN CREAM (MYCOSTATIN) 30 GM TUBE TP SCH (21:57)
--- NOTE | 2021-09-21 22:52 | Progress Note-Pre Operative ---
Pre-Operative Progress Note H&P Reviewed The H&P was reviewed, patient examined and no changes noted. Date Seen by Provider: Sep 21, 2021 Time Seen by Provider: 22:30 Date H&P Reviewed: Sep 21, 2021 Time H&P Reviewed: :30 Pre-Operative Diagnosis: descending colon cancer CARSON VENEGAS MD Sep 21, 2021 22:51
[2021-09-21] MEDS: NS IV 1000 ML 1,000 ML IV SCH (23:31)
[2021-09-22] VITALS (16 sets, daily range): BP systolic 103–164; BP diastolic 61–78
[2021-09-22] MEDS: PIPERACILLIN SODIUM/TAZOBACTAM 4.5 GM in NS (IVPB) 100 ML IV SCH ×3 (00:45→16:29)
[2021-09-22 05:58] LABS: BASOPHILS # (AUTO) 0.1 10^3/uL (0.0-0.1); BASOPHILS % (AUTO) 1 % (0-10); EOSINOPHILS # (AUTO) 0.3 10^3/uL (0.0-0.3); EOSINOPHILS % (AUTO) 4 % (0-10); HEMATOCRIT 24 % (35-52); HEMOGLOBIN 7.1 g/dL (11.5-16.0); LYMPHOCYTES # (AUTO) 1.8 10^3/uL (1.0-4.0); LYMPHOCYTES % (AUTO) 28 % (12-44); MEAN CORPUSCULAR HEMOGLOBIN 23 pg (25-34); MEAN CORPUSCULAR HGB CONC 30 g/dL (32-36); MEAN CORPUSCULAR VOLUME 79 fL (80-99); MEAN PLATELET VOLUME 9.8 fL (9.0-12.2); MONOCYTES # (AUTO) 0.4 10^3/uL (0.0-1.0); MONOCYTES % (AUTO) 6 % (0-12); NEUTROPHILS # (AUTO) 3.8 10^3/uL (1.8-7.8); NEUTROPHILS % (AUTO) 61 % (42-75); PLATELET COUNT 349 10^3/uL (130-400); WHITE BLOOD COUNT 6.4 10^3/uL (4.3-11.0)
[2021-09-22 06:08] LABS: ALBUMIN 2.7 GM/DL (3.2-4.5)
[2021-09-22 06:09] LABS: POTASSIUM 3.8 MMOL/L (3.6-5.0)
[2021-09-22 06:10] LABS: CALCIUM 8.2 MG/DL (8.5-10.1)
[2021-09-22 06:11] LABS: TOTAL PROTEIN 4.9 GM/DL (6.4-8.2)
[2021-09-22 06:13] LABS: BILIRUBIN,TOTAL 0.2 MG/DL (0.1-1.0)
[2021-09-22 06:15] LABS: CREATININE SERUM 0.72 MG/DL (0.60-1.30)
[2021-09-22] MEDS: SENNOSIDES 8.6 MG (SENOKOT) TAB PO SCH ×2 (08:10→21:35)
[2021-09-22] MEDS: DOCUSATE SODIUM 100 MG (COLACE) CAP PO SCH ×4 (08:10→21:35)
[2021-09-22] MEDS: NYSTATIN CREAM (MYCOSTATIN) 30 GM TUBE TP SCH ×3 (08:11→21:18)
--- NOTE | 2021-09-22 08:53 | Cardiology Progress Note ---
Subjective Date Seen by Provider: Sep 22, 2021 Time Seen by Provider: 08:52 Subjective/Events-last exam Patient was laying down in bed, comfortable, denied any chest pain, for possible surgery today Review of Systems General: No Chills, No Night Sweats, No Fatigue, No Malaise, No Appetite, No Other HEENT: No Head Aches, No Visual Changes, No Eye Pain, No Ear Pain, No Dysphasia, No Sinus Congestion, No Post Nasal Drip, No Sore Throat, No Other Pulmonary: No Dyspnea, No Cough, No Pleuritic Chest Pain, No Other Cardiovascular: No: Chest Pain, Palpitations, Orthopnea, Paroxysmal Noc. Dyspnea, Edema, Lt Headedness, Other Objective-Cardiology Exam Last Set of Vital Signs Vital Signs 09/19/21 09/22/21 09/22/21 07:57 07:40 08:33 Temp 36.8 Pulse 58 Resp 18 B/P (MAP) 103/61 (75) Pulse Ox 96 O2 Delivery Room Air O2 Flow Rate 0.00 FiO2 21 I&O Intake and Output 09/22/21 00:00 Intake Total 800 ml Output Total 850 ml Balance -50 ml Intake Oral 700 ml IV Total 100 ml Output Urine Total 850 ml # Bowel Movements 3 General: Alert, Oriented X3, Cooperative HEENT: Atraumatic, PERRLA Neck: Supple, No JVD, No Thyromegaly Lungs: Clear to Auscultation, Normal Air Movement Heart: Regular Rate, No Murmurs Abdomen: Normal Bowel Sounds, Soft Extremities: No Clubbing, No Cyanosis, No Edema Skin: No Rashes, No Breakdown, No Significant Lesion Neuro: Normal Speech, Other (slow speech, tardive type movements of upper body throughout visit) Psych/Mental Status: Mental Status NL, Mood NL Results Lab Laboratory Tests 09/22/21 05:44 A/P-Cardiology Admission Diagnosis Colon mass Anemia Cryptogenic CVA HTN Assessment/Plan Colon mass- CT abd/pelvis done in ER today showing large lobulated heterogeneously enhancing mass in the pelvis which arises from the upper aspect of the proximal sigmoid colon. This is concerning for colon cancer. There are several small subcentimeter lymph nodes in the pelvis and iliac regions near the mass. There is no intestinal obstruction or intra-abdominal free fluid. There are no other areas concerning for metastatic disease. There are several areas of stool and/or colonic wall thickening involving the sigmoid colon and descending colon. Possible hemicolectomy today, managed by Dr. Rivero. Anemia, GI bleed secondary to colon mass. Transfuse as needed and continue to monitor. Management per medical services. 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 No arrhythmia has been detected so far. Hypertension, controlled, continue to monitor. Hyperlipidemia, continue to monitor. History of breast cancer. In remission History of Tobaccoism. DOROTHY RIVERA MD Sep 22, 2021 08:52
--- NOTE | 2021-09-22 11:03 | Progress Note ---
Subjective Subjective/Events-last exam Afebrile, states she is feeling okay, ready for surgery. Had some loose stool, she doesn't think it was bloody. She denies concerns this morning. Objective Exam Last Set of Vital Signs Vital Signs Date Time Temp Pulse Resp B/P (MAP) Pulse Ox O2 Delivery O2 Flow Rate FiO2 09/22/21 08:33 Room Air 09/22/21 07:40 36.8 58 18 103/61 (75) 96 09/19/21 07:57 0.00 09/19/21 07:57 21 Capillary Refill : Less Than 3 Seconds I&O Intake and Output 09/22/21 00:00 Intake Total 800 ml Output Total 850 ml Balance -50 ml Intake Oral 700 ml IV Total 100 ml Output Urine Total 850 ml # Bowel Movements 3 General: Alert, No Acute Distress Lungs: Clear to Auscultation Heart: Regular Rate Abdomen: Normal Bowel Sounds, Soft, No Tenderness Neuro: Normal Speech, Other (flowing tardive type movements of arms and trunk) Psych/Mental Status: Mood NL Results/Procedures Lab Laboratory Tests 09/21/21 12:39: Lab Scanned Report Transfusion Reaction Form 09/22/21 05:44: White Blood Count 6.4, Red Blood Count 3.05L, Hemoglobin 7.1L, Hematocrit 24L, Mean Corpuscular Volume 79L, Mean Corpuscular Hemoglobin 23L, Mean Corpuscular Hemoglobin Concent 30L, Red Cell Distribution Width 17.5H, Platelet Count 349, Mean Platelet Volume 9.8, Immature Granulocyte % (Auto) 0, Neutrophils (%) (Auto) 61, Lymphocytes (%) (Auto) 28, Monocytes (%) (Auto) 6, Eosinophils (%) (Auto) 4, Basophils (%) (Auto) 1, Neutrophils # (Auto) 3.8, Lymphocytes # (Auto) 1.8, Monocytes # (Auto) 0.4, Eosinophils # (Auto) 0.3, Basophils # (Auto) 0.1, Immature Granulocyte # (Auto) 0.0, Sodium Level 140, Potassium Level 3.8, Chloride Level 110H, Carbon Dioxide Level 22, Anion Gap 8, Blood Urea Nitrogen 8, Creatinine 0.72, Estimat Glomerular Filtration Rate 87, BUN/Creatinine Ratio 11, Glucose Level 97, Calcium Level 8.2L, Corrected Calcium 9.2, Total Bilirubin 0.2, Aspartate Amino Transf (AST/SGOT) 17, Alanine Aminotransferase (ALT/SGPT) 7, Alkaline Phosphatase 35L, Total Protein 4.9L, Albumin 2.7L Assessment/Plan Assessment/Plan (1) Mass of colon Status: Acute Assessment & Plan: 09/21- Plan for resection tomorrow, discussed that if results are consistent with cancer, will then discuss the options moving forward, she states she wouldn't want chemo, briefly discussed hospice services, but recommended further discussion after more information available. (2) Anemia Status: Acute Assessment & Plan: Suspect secondary to GI bleed/colon mass. Hemoglobin semi stable but low, monitor closely. s/p 1 unit transfusion this hospitalization. Qualifiers: (3) HTN (hypertension) Status: Chronic (4) HLD (hyperlipidemia) Status: Chronic (5) History of stroke Status: Chronic Assessment & Plan: October 2020, reports she was in rehab for 4 months, now in assisting living for last 4 months. (6) DVT prophylaxis Status: Acute Assessment & Plan: On hold for surgery Clinical Quality Measures DVT/VTE Risk/Contraindication: Other: ANGLE Julian MD Sep 22, 2021 11:03
[2021-09-22] MEDS ORDERED: ONDANSETRON 4 MG/2 ML (SDV) Z0FRAN ONE (11:58)
[2021-09-22] MEDS ORDERED: proPOfol 200 MG/20 ML (DIPRIVAN) VIAL IV ONE (11:58)
[2021-09-22] MEDS ORDERED: ROCURONIUM 10 MG/ML 5 ML SYRINGE IV ONE (11:58)
[2021-09-22] MEDS ORDERED: SEVOFLURANE (ULTANE) 15 ML INHAL SOLN ONE ×3 (11:58→14:43)
[2021-09-22] MEDS ORDERED: LIDOCAINE PF 2% 5 ML (XYLOCAINE) VIAL ONE (11:58)
[2021-09-22] MEDS ORDERED: fentaNYL INJ 100 MCG/2 ML AMP ONE (11:58)
[2021-09-22] MEDS: LACTATED RINGERS 1,000 ML IV PRN ×2 (12:20→13:57)
[2021-09-22] MEDS ORDERED: metroNIDAZOLE 500MG/100ML IVPB 100 ML IV ONE (12:45)
[2021-09-22] MEDS ORDERED: ceFAZolin INJECTION 1,000 MG VIAL IV ONE (12:45)
[2021-09-22] MEDS ORDERED: metroNIDAZOLE 500MG/100ML IVPB 100 ML ONE (12:47)
[2021-09-22] MEDS ORDERED: ceFAZolin INJECTION 1,000 MG ONE (12:47)
[2021-09-22] MEDS ORDERED: HYDROmorphone 2 MG/ML VIAL (DILAUDID) ONE ×2 (13:10→15:42)
[2021-09-22] MEDS ORDERED: ROPIVACAINE 5MG/ML 30ML VIAL ONE (14:17)
[2021-09-22] MEDS ORDERED: NEOSTIGMINE 3 MG/3 ML VIAL ONE (14:29)
[2021-09-22] MEDS ORDERED: GLYCOPYRROLATE 0.2 MG/ML (ROBINUL) 2 ML VIAL ONE (14:29)
--- NOTE | 2021-09-22 14:49 | Progress Note-Post Operative ---
Post-Operative Progess Note Surgeon (s)/Cytogenetic Technician (s) Surgeon CARSON VENEGAS MD Cytogenetic Technician: esther peguero SHOW OPERATIONS SUPERVISOR Pre-Operative Diagnosis descending colon cancer Post-Operative Diagnosis same with invasion small bowel and appendix. Procedure & Operative Findings Date of Procedure 09/22/21 Procedure Performed/Findings exploratory laparotomy, en-block resection sigmoid colon, small bowel, appendix, mesentery with anastomosis colon and small bowel, rigid proctoscope, placement l t sc central line. Anesthesia Type get Estimated Blood Loss Estimated blood loss (mL): 100ml Specimens/Packing Specimens Removed sigmoid colon, small bowel, appendix CARSON VENEGAS MD Sep 22, 2021 14:49
--- NOTE | 2021-09-22 16:08 | Diagnostic Imaging Report ---
INDICATION: Central line placement. COMPARISON: September 19, 2021. TECHNIQUE: Two radiographs of the chest dated September 22, 2021. FINDINGS: Interval placement of a left subclavian central venous catheter. The distal tip is noted to be at the cavoatrial junction on image #[id number]. No pneumothorax. Loop recorder is again noted overlying the left chest. Interval placement of an enteric catheter which extends into the left upper abdomen. The cardiac silhouette is stable. No significant pulmonary vascular congestion. Developing small left basilar pleural-parenchymal opacity, worsened since the prior examination. Curvilinear density with underlying lucency is seen involving the right lung base. No large right pleural effusion. No acute osseous abnormality. IMPRESSION: Lucency overlying the right lung base with curvilinear density. This could relate to free intraperitoneal gas or a subpulmonic pneumothorax. Recommend correlation for recent surgery to account for this potential free intraperitoneal gas. If no recent surgery was performed, dedicated upright radiographs of the abdomen would be recommended. If this confirms free intraperitoneal gas, then a CT of the abdomen and pelvis would be indicated. Placement of a left subclavian central venous catheter with the distal tip overlying the cavoatrial junction without pneumothorax. Developing small left basilar pleural-parenchymal opacity, which is related to a combination of pleural fluid with adjacent atelectasis and/or infiltrate. Enteric catheter is present extending into the left upper abdomen. Findings discussed with Dr. Rivero at 1557 hours on September 22, 2021. The patient has had recent abdominal surgery and the free intraperitoneal gas is a known and expected finding. Dictated by: Dictated on workstation # [id number]
[2021-09-22] MEDS: fentaNYL INJ 100 MCG/2 ML AMP IVP PRN (16:59)
[2021-09-22] MEDS: NS IV 1000 ML 1,000 ML IV SCH (18:53)
--- NOTE | 2021-09-22 18:55 | Tele-ICU Consult ---
History of Present Illness History of Present Illness Date Seen by Provider: Sep 22, 2021 Time Seen by Provider: 18:55 Date of Admission Reason for Visit: Hx of CVA, cardiac clearance Allergies and Home Medications Allergies Coded Allergies: Sulfa (Sulfonamide Antibiotics) (Unverified Allergy, Unknown, 12/02/20) Home Medications Atorvastatin Calcium 80 Mg Tablet, 80 MG PO HS, (Reported) Bisacodyl 5 Mg Tablet.dr, 5 MG PO DAILY PRN for CONSTIPATION-4TH LINE, (Reported) Calcium Carbonate 600 Mg Tablet, 600 MG PO DAILY, (Reported) Citalopram Hydrobromide 20 Mg Tablet, 20 MG PO DAILY, (Reported) Cyanocobalamin (Vitamin B-12) 500 Mcg Tablet, 500 MCG PO DAILY, (Reported) Docusate Sodium 100 Mg Capsule, 100 MG PO DAILY, (Reported) Loratadine 10 Mg Tablet, 10 MG PO DAILY PRN for ALLERGY SYMPTOMS, (Reported) Magnesium Hydroxide 400 Mg/5 Ml Oral.susp, 30 ML PO DAILY PRN for CONSTIPATION- 7TH LINE, (Reported) Melatonin 3 Mg Tablet, 6 MG PO HS PRN for SLEEP, (Reported) TAKES 2 (3MG) TABS Multivit-Min/FA/Lycopene/Lut 1 Each Tablet, 1 EACH PO DAILY, (Reported) Past Medical/Social/Family Hx Patient Social History Marrital Status: single Employed/Student: retired Tobacco Use?: No Smoking Status: Former Smoker Use of E-Cig and/or Vaping dev: No Substance use?: No Alcohol Use?: No Pt stated abuse/neglect: No Immunizations Up To Date Influenza Vaccine Up-to-Date: No; Not Current First/Initial COVID19 Vaccinat: UNK Second COVID19 Vaccination Vladimir: UNK Tetanus Booster (TDap): Unknown Hepatitis A: No Hepatitis B: No TB Skin Test: None Date of Pneumonia Vaccine: May 29, 2018 Current Status status: No status: No Advance Directives: No Communicates: Verbally Primary Language: Pakistani Preferred Spoken Language: Pakistani Is interpretation needed?: No Implanted or Applied Medical D: Other Past Medical History none Family Medical History Family Hx: noncontributory Review of Systems Constitutional: see HPI Focused Exam Height, Weight, BMI Height: 5'8.00" Weight: 160lbs. 0.0oz. 72.622087mm; 19.60 BMI Method:Stated Exam Exam Patient acknowledged, consented, and participated in this virtual visit which was conducted using real time audio/video Vital Signs Date Time Temp Pulse Resp B/P (MAP) Pulse Ox O2 Delivery O2 Flow Rate FiO2 09/22/21 18:00 52 11 152/65 (94) 97 Room Air 09/22/21 17:00 47 12 154/70 (98) 96 Room Air 09/22/21 16:34 99 Room Air 09/22/21 16:31 46 12 99 Room Air 09/22/21 16:19 47 09/22/21 16:17 37.0 50 12 145/66 (92) 98 Room Air 09/22/21 16:15 52 12 145/66 (92) 09/22/21 16:00 Room Air 09/22/21 15:55 36.2 16 164/74 (104) 100 09/22/21 15:45 14 150/74 (99) 100 OxyMask 3 09/22/21 15:45 OxyMask 3 09/22/21 15:35 24 159/78 (105) 100 OxyMask 4 09/22/21 15:30 OxyMask 4 09/22/21 15:25 16 162/76 (104) 99 OxyMask 6 09/22/21 15:13 OxyMask 6 09/22/21 15:13 36.7 14 153/71 (98) 96 OxyMask 6 09/22/21 08:33 Room Air 09/22/21 08:00 Room Air 09/22/21 07:40 36.8 58 18 103/61 (75) 96 Room Air 09/22/21 00:16 36.6 64 18 127/63 (84) 6 Room Air 09/21/21 22:36 Room Air 09/21/21 20:46 Room Air I & O 09/22/21 07:00 Intake Total 600 ml Output Total 1135 ml Balance -535 ml Height & Weight Height: 5'8.00" Weight: 160lbs. 0.0oz. 72.652040ol; 19.60 BMI Method:Stated General Appearance: No Apparent Distress, Cachetic HEENT: PERRL/EOMI Neck: Full Range of Motion Respiratory: Chest Non Tender, Lungs Clear, Normal Breath Sounds Cardiovascular: Regular Rate, Rhythm Capillary Refill: Less Than 3 Seconds Gastrointestinal: normal bowel sounds, non tender, soft Extremity: Normal Capillary Refill Neurologic/Psychiatric: Alert, Oriented x3 Skin: Normal Color Lymphatic: No Adenopathy Results Lab Laboratory Tests 09/21/21 05:11 09/22/21 05:44 Assessment/Plan Assessment/Plan (Tele-ICU Physician , consultation) Available chart/ vitals / labs / Images reviewed H&P is from notes ROS as per chart and RN report Now in ICU, hemodynamically stable Video assessment done using teleICU camera, rest of exam as per RN Discussed with RN. Consultants: sx cards Hospital course: (09/16) 76F Admitted for symptomatic anemia, Colon mass, hx of CVA w/left side hemiparesis. (09/22) TX to ICU s/p exploratory lap, en bloc sigmoid colon resection, small bowel resection, appendecele resection, rigid proctoscope. A/P s/p exploratory lap for colon CA , s/p sigmoid colon resection, small bowel resection - as per sx - pain control -abx as per sx Anemia - continue to monitor Lines : (Central Line Necessity Reviewed) Lane: OG: Nutrition: Analgesia: Anxiety/ delirium VTE Prophylaxis: joyce if OK with sx Stress Ulcer Prophylaxis: Plans in collaboration with bedside consultants and IM MDs. Discussed with RN to reach out if any questions or concerns A total of 20minutes of critical care time was devoted to this patient today, required to treat and/or prevent further deterioration of critical care condition ( as above ) . DON CARROLL MD Sep 22, 2021 18:55
[2021-09-22] MEDS: ENOXAPARIN 40 MG/0.4 ML (LOVENOX) SYR SC SCH (21:36)
--- NOTE | 2021-09-22 22:55 | OPERATIVE REPORT ---
DATE OF SERVICE: 09/22/2021 ATTENDING PRIMARY CARE PHYSICIAN: Dr. Godwin Morris PREOPERATIVE DIAGNOSIS: Descending colonic cancer. 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 PROCEDURES: Exploratory laparotomy, en bloc resection sigmoid colon, small bowel, appendix and mesentery with anastomosis of the colon as well as small bowel. Rigid proctoscope. Placement of left subclavian central venous catheter. SURGEON: Stephania Rivero MD WEATHER FORCASTER: Bharathi Mayes APRN. ANESTHESIA: General endotracheal. ESTIMATED BLOOD LOSS: 100 mL. 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 DISPOSITION: The patient tolerated the procedure well. INDICATIONS: The patient is a 76-year-old female, who was admitted on 09/16/2021 for fatigue. She is a resident of [facility] and EMS was called, and she was brought to the Emergency Department and was noted to having dark tarry stools. She had laboratory work drawn, which did show significant anemia with hemoglobin 6.2. She also did report some discomfort of the abdomen. She did have a stroke six months ago and does have residual left sided weakness. On 09/18/2021, she underwent EGD and colonoscopy. She was found to have reflux esophagitis, [place] grade C with a distal esophageal stricture, small hiatal hernia 2 cm in size and moderate severity gastritis with no distal obstruction. Colonoscopy did show chronic stage II external and internal hemorrhoids, moderate sigmoid diverticulosis as well as descending colonic mass. CT scan was also performed, which did show some lymphadenopathy as well as a large 9 x 5 cm mass arising from what appeared to be the descending or sigmoid colon. There were no liver lesions as well as no lung lesions as well. DESCRIPTION OF PROCEDURE: The patient was brought to the operating room, laid supine on the table. After adequate IV pain and sedative medications and general endotracheal intubation, the chest and neck were prepped and draped in standard surgical fashion. The left subclavian vein was then cannulated withdrawing of venous blood. Guidewire was inserted without any resistance. The cannulating needle removed, and a skin incision made using 11-blade. A tract was then created with venous dilator and through this opening, a triple lumen central venous catheter was placed over the guidewire using Seldinger technique. The guidewire was removed, and all three ports rick venous blood and saline pushed in without any resistance. The catheter was then sutured to the skin using interrupted 3-0 silk sutures. The patient was then placed in lithotomy position and the abdomen and perineum were prepped and draped in standard surgical fashion. A midline laparotomy incision infraumbilically was made using 10-blade. Subcutaneous tissue was then dissected down to the fascia using electrocautery. The fascia was then opened using cautery and the peritoneal lining was opened using Metzenbaum scissors entering the peritoneal cavity. The fascia and peritoneal lining went over to the length of the skin incision using a cautery under direct visualization. A 4-quadrant abdominal exploration was performed. There was no abdominal carcinomatosis. There was a large mass nested more in the pelvis and this encompassed the sigmoid colon and also encroach and was adherent to a loop of small bowel and the appendix. There did also appear to be mesenteric lymphadenopathy. There were no liver lesions. Nasogastric tube was in proper positioning. We then decided to proceed with en bloc resection of the sigmoid colon as well as small bowel and appendix. The small bowel was first isolated and resected proximally and distally using GAGE 55 mm blue load sean. The appendix was then resected at the cecal base using the same stapler with visualization of good hemostasis. We then proceeded with resection of the sigmoid colon with a GAGE-75 mm blue load sean proximally and distally at least 10 cm from the tumor. Good hemostasis was observed. We then proceeded to take a wide wedge of the mesentery using the LigaSure with visualization of good hemostasis. The specimen was sent to pathology. We then proceeded with a [id number] anastomosis of the small bowel using a GAGE 55 mm blue load sean. The open end was then reapproximated using 3-0 silk sutures and stapled shut using the same stapler. The mesentery was then closed using 3-0 Vicryl running suture. We then proceeded with [id number] anastomosis of the descending colon to the distal sigmoid colon with a GAGE 55 mm blue load staple. The open end was then reapproximated using 3-0 silk interrupted sutures. The end was then stapled using the same stapler. Good hemostasis was observed. A rigid proctoscope was then performed and insufflated. Very small air bubbles were identified at the end of the staple line. We then proceeded with full thickness row of 3-0 silk interrupted sutures. The proctoscope and leak test was then repeated with no leak identified and visualization of good hemostasis. The saline was then suctioned out in the peritoneal cavity. A 19-Divehi Kamlesh-Razo drain was then placed into the area of the anastomosis and pelvis and brought out the left upper abdominal quadrant and sutured to the skin using 3-0 nylon interrupted suture. The fascia was then closed using #1 looped PDS suture starting superiorly and inferiorly and tied in the middle. Subcutaneous tissue was then reapproximated using 3-0 Vicryl interrupted sutures. Skin was closed using skin sean. The wound was then cleaned and covered with island dressing. The patient tolerated the procedure well. We will admit her to the ICU and proceed with pain control with IV pain medication as well as continued bowel rest, NG tube decompression. We will also proceed with DVT prophylaxis with early ambulation, calf SCDs as well as Lovenox injections. Job ID: [id number] DocumentID: [id number] Dictated Date: 09/22/2021 14:59:09 Bank Runner Date: 09/22/2021 22:54:45 Dictated By: STEPHANIA RIVERO MD MTDD
[2021-09-23] VITALS (24 sets, daily range): BP systolic 110–145; BP diastolic 60–94
[2021-09-23] MEDS: PIPERACILLIN SODIUM/TAZOBACTAM 4.5 GM in NS (IVPB) 100 ML IV SCH (02:57)
[2021-09-23] MEDS: fentaNYL INJ 100 MCG/2 ML AMP IVP PRN ×8 (06:03→23:57)
[2021-09-23 06:06] LABS: BASOPHILS % (AUTO) 0 % (0-10); EOSINOPHILS % (AUTO) 0 % (0-10); HEMATOCRIT 25 % (35-52); HEMOGLOBIN 7.4 g/dL (11.5-16.0); LYMPHOCYTES # (AUTO) 1.3 10^3/uL (1.0-4.0); LYMPHOCYTES % (AUTO) 12 % (12-44); MEAN CORPUSCULAR HEMOGLOBIN 23 pg (25-34); MEAN CORPUSCULAR HGB CONC 30 g/dL (32-36); MEAN CORPUSCULAR VOLUME 78 fL (80-99); MEAN PLATELET VOLUME 9.3 fL (9.0-12.2); MONOCYTES # (AUTO) 0.7 10^3/uL (0.0-1.0); MONOCYTES % (AUTO) 6 % (0-12); NEUTROPHILS # (AUTO) 8.7 10^3/uL (1.8-7.8); NEUTROPHILS % (AUTO) 82 % (42-75); PLATELET COUNT 368 10^3/uL (130-400); WHITE BLOOD COUNT 10.6 10^3/uL (4.3-11.0)
[2021-09-23 06:18] LABS: ALBUMIN 2.7 GM/DL (3.2-4.5); POTASSIUM 4.1 MMOL/L (3.6-5.0)
[2021-09-23 06:21] LABS: TOTAL PROTEIN 4.9 GM/DL (6.4-8.2)
[2021-09-23 06:22] LABS: BILIRUBIN,TOTAL 0.2 MG/DL (0.1-1.0)
[2021-09-23 06:24] LABS: CREATININE SERUM 0.67 MG/DL (0.60-1.30); PHOSPHORUS 3.3 MG/DL (2.3-4.7)
[2021-09-23 06:27] LABS: MAGNESIUM 1.8 MG/DL (1.6-2.4)
[2021-09-23] MEDS: POTASSIUM CL 10MEQ/50ML IVPB 50 ML IV SCH (06:50)
[2021-09-23] MEDS: KCL 20 MEQ TAB (K-DUR) PO SCH (06:50)
[2021-09-23] MEDS: MAGNESIUM 1 GM/100 ML IVPB 100 ML IV SCH (06:50)
[2021-09-23] MEDS: NYSTATIN CREAM (MYCOSTATIN) 30 GM TUBE TP SCH ×3 (09:51→20:37)
--- NOTE | 2021-09-23 10:12 | Anesthesia-General Post-Op ---
General Patient Condition Mental Status/LOC: Same as Preop Cardiovascular: Satisfactory Nausea/Vomiting: Absent Respiratory: Satisfactory Pain: Controlled Complications: Absent Post Op Complications Complications None Follow Up Care/Instructions Patient Instructions None needed. Anesthesia/Patient Condition Patient Condition Patient is doing well, no complaints, stable vital signs, no apparent adverse anesthesia problems. No complications reported per nursing. D/C home per [facility] – [place] Criteria: МАРИЯ Zambrano CRNA Sep 23, 2021 10:12
--- NOTE | 2021-09-23 10:40 | Progress Note ---
Subjective Date Seen by a Provider: Sep 23, 2021 Time Seen by a Provider: 10:00 Subjective/Events-last exam doing ok. pain somewhat controlled. PAMELA drainage SS. no fever/chills. no bowel fxn yet. Objective Exam Vital Signs Date Time Temp Pulse Resp B/P (MAP) Pulse Ox O2 Delivery O2 Flow Rate FiO2 09/23/21 10:00 76 11 140/68 (92) 94 Room Air 09/23/21 09:00 65 16 135/66 (89) 95 Room Air 09/23/21 08:00 94 Room Air 09/23/21 08:00 81 18 143/61 (88) 91 Room Air 09/23/21 07:46 37.4 09/23/21 07:00 69 09/23/21 07:00 66 16 134/60 (84) 96 Room Air 09/23/21 06:00 85 19 144/70 (94) Room Air 09/23/21 05:00 68 17 137/65 (89) 88 Room Air 09/23/21 04:00 36.7 09/23/21 04:00 70 16 135/69 (91) 91 Room Air 09/23/21 04:00 94 Room Air 09/23/21 03:00 62 16 141/72 (95) 96 Room Air 09/23/21 02:00 63 15 134/66 (88) 98 Room Air 09/23/21 01:00 72 09/23/21 01:00 72 17 132/67 (88) 99 Room Air 09/23/21 00:00 96 Room Air 09/23/21 00:00 67 20 145/65 (91) 96 Room Air 09/23/21 00:00 36.5 09/22/21 23:00 55 12 143/68 (93) 97 Room Air 09/22/21 22:00 49 12 150/67 (94) 98 Room Air 09/22/21 21:00 50 12 144/75 (98) 98 Room Air 09/22/21 20:00 99 Room Air 09/22/21 20:00 57 11 147/64 (91) 99 Room Air 09/22/21 19:00 52 09/22/21 19:00 52 12 145/74 (97) 99 Room Air 09/22/21 18:00 52 11 152/65 (94) 97 Room Air 09/22/21 17:00 47 12 154/70 (98) 96 Room Air 09/22/21 16:34 99 Room Air 09/22/21 16:31 46 12 99 Room Air 09/22/21 16:19 47 09/22/21 16:17 37.0 50 12 145/66 (92) 98 Room Air 09/22/21 16:15 52 12 145/66 (92) 09/22/21 16:00 Room Air 09/22/21 15:55 36.2 16 164/74 (104) 100 09/22/21 15:45 14 150/74 (99) 100 OxyMask 3 09/22/21 15:45 OxyMask 3 09/22/21 15:35 24 159/78 (105) 100 OxyMask 4 09/22/21 15:30 OxyMask 4 09/22/21 15:25 16 162/76 (104) 99 OxyMask 6 09/22/21 15:13 OxyMask 6 09/22/21 15:13 36.7 14 153/71 (98) 96 OxyMask 6 I & O 09/23/21 07:00 Intake Total 1300 ml Output Total 1510 ml Balance -210 ml Capillary Refill : Less Than 3 Seconds General Appearance: No Apparent Distress HEENT: PERRL/EOMI Neck: Full Range of Motion Respiratory: Chest Non Tender, Lungs Clear Cardiovascular: Regular Rate, Rhythm Gastrointestinal: soft, tenderness Extremity: Normal Capillary Refill Neurologic/Psychiatric: Alert, Oriented x3 Skin: Normal Color Lymphatic: No Adenopathy Results Lab Laboratory Tests 09/23/21 05:48: White Blood Count 10.6, Red Blood Count 3.19L, Hemoglobin 7.4L, Hematocrit 25L, Mean Corpuscular Volume 78L, Mean Corpuscular Hemoglobin 23L, Mean Corpuscular Hemoglobin Concent 30L, Red Cell Distribution Width 17.9H, Platelet Count 368, Mean Platelet Volume 9.3, Immature Granulocyte % (Auto) 0, Neutrophils (%) (Auto) 82H, Lymphocytes (%) (Auto) 12, Monocytes (%) (Auto) 6, Eosinophils (%) (Auto) 0, Basophils (%) (Auto) 0, Neutrophils # (Auto) 8.7H, Lymphocytes # (Auto) 1.3, Monocytes # (Auto) 0.7, Eosinophils # (Auto) 0.0, Basophils # (Auto) 0.0, Immature Granulocyte # (Auto) 0.0, Sodium Level 139, Potassium Level 4.1, Chloride Level 109H, Carbon Dioxide Level 20L, Anion Gap 10, Blood Urea Nitrogen 7, Creatinine 0.67, Estimat Glomerular Filtration Rate 91, BUN/Creatinine Ratio 10, Glucose Level 97, Calcium Level 8.0L, Corrected Calcium 9.0, Phosphorus Level 3.3, Magnesium Level 1.8, Total Bilirubin 0.2, Aspartate Amino Transf (AST/SGOT) 17, Alanine Aminotransferase (ALT/SGPT) 9, Alkaline Phosphatase 35L, Total Protein 4.9L, Albumin 2.7L Assessment/Plan Assessment/Plan Assess & Plan/Chief Complaint anemia with dark stools and large colonic/small bowel mass s/p en-bloc resection sigmoid colon, small bowel and appendix. reflux eosphagitis with stricture s/p bs and dilatation. descending colonic mass with extensive diverticulosis. cont NGT and await bowel fxn. OOB to chair. cont DVT prophylaxis. Clinical Quality Measures DVT/VTE Risk/Contraindication: Other: CARSON Hurtado MD Sep 23, 2021 10:40
--- NOTE | 2021-09-23 10:41 | Tele-ICU Progress Note ---
Subjective Date Seen by a Provider: Sep 23, 2021 Time Seen by a Provider: 10:41 Sepsis Event Evaluation Height, Weight, BMI Height: 5'8.00" Weight: 160lbs. 0.0oz. [id number]; 19.60 BMI Method:Stated Exam Exam Patient acknowledged, consented, and participated in this virtual visit which was conducted using real time audio/video Vital Signs Date Time Temp Pulse Resp B/P (MAP) Pulse Ox O2 Delivery O2 Flow Rate FiO2 09/23/21 10:00 76 11 140/68 (92) 94 Room Air 09/23/21 09:00 65 16 135/66 (89) 95 Room Air 09/23/21 08:00 94 Room Air 09/23/21 08:00 81 18 143/61 (88) 91 Room Air 09/23/21 07:46 37.4 09/23/21 07:00 69 09/23/21 07:00 66 16 134/60 (84) 96 Room Air 09/23/21 06:00 85 19 144/70 (94) Room Air 09/23/21 05:00 68 17 137/65 (89) 88 Room Air 09/23/21 04:00 36.7 09/23/21 04:00 70 16 135/69 (91) 91 Room Air 09/23/21 04:00 94 Room Air 09/23/21 03:00 62 16 141/72 (95) 96 Room Air 09/23/21 02:00 63 15 134/66 (88) 98 Room Air 09/23/21 01:00 72 09/23/21 01:00 72 17 132/67 (88) 99 Room Air 09/23/21 00:00 96 Room Air 09/23/21 00:00 67 20 145/65 (91) 96 Room Air 09/23/21 00:00 36.5 09/22/21 23:00 55 12 143/68 (93) 97 Room Air 09/22/21 22:00 49 12 150/67 (94) 98 Room Air 09/22/21 21:00 50 12 144/75 (98) 98 Room Air 09/22/21 20:00 99 Room Air 09/22/21 20:00 57 11 147/64 (91) 99 Room Air 09/22/21 19:00 52 09/22/21 19:00 52 12 145/74 (97) 99 Room Air 09/22/21 18:00 52 11 152/65 (94) 97 Room Air 09/22/21 17:00 47 12 154/70 (98) 96 Room Air 09/22/21 16:34 99 Room Air 09/22/21 16:31 46 12 99 Room Air 09/22/21 16:19 47 09/22/21 16:17 37.0 50 12 145/66 (92) 98 Room Air 09/22/21 16:15 52 12 145/66 (92) 09/22/21 16:00 Room Air 09/22/21 15:55 36.2 16 164/74 (104) 100 09/22/21 15:45 14 150/74 (99) 100 OxyMask 3 09/22/21 15:45 OxyMask 3 09/22/21 15:35 24 159/78 (105) 100 OxyMask 4 09/22/21 15:30 OxyMask 4 09/22/21 15:25 16 162/76 (104) 99 OxyMask 6 09/22/21 15:13 OxyMask 6 09/22/21 15:13 36.7 14 153/71 (98) 96 OxyMask 6 I & O 09/23/21 07:00 Intake Total 1300 ml Output Total 1510 ml Balance -210 ml Height & Weight Height: 5'8.00" Weight: 160lbs. 0.0oz. 72.143513ks; 19.60 BMI Method:Stated General Appearance: No Apparent Distress HEENT: PERRL/EOMI Neck: Full Range of Motion Respiratory: Chest Non Tender, Lungs Clear Cardiovascular: Regular Rate, Rhythm Capillary Refill: Less Than 3 Seconds Gastrointestinal: soft, tenderness Extremity: Normal Capillary Refill Neurologic/Psychiatric: Alert, Oriented x3 Skin: Normal Color Lymphatic: No Adenopathy Results Lab Laboratory Tests 09/22/21 05:44 09/23/21 05:48 Assessment/Plan Assessment/Plan (Tele-ICU Physician , Progress Note ) Available chart/ vitals / labs / Images reviewed Video assessment done using teleICU camera, rest of exam as per RN Discussed with RN , EXAM PER RN Events overnight : Afebrile FiO2 - ra I/O = Drips: Pressors: , hemodynamically stable Consultants: sx cards Hospital course: (09/16) 76F Admitted for symptomatic anemia, Colon mass, hx of CVA w/left side hemiparesis. (09/22) TX to ICU s/p exploratory lap, en bloc sigmoid colon resection, small bowel resection, appendecele resection, rigid proctoscope. A/P s/p exploratory lap for colon CA , s/p sigmoid colon resection, small bowel resection - as per sx - pain control -abx as per sx Anemia - continue to monitor, stable Lines : Left ScL (Central Line Necessity Reviewed) Lane: + OG: Nutrition: Analgesia: Anxiety/ delirium VTE Prophylaxis: joyce if OK with sx Stress Ulcer Prophylaxis: Plans in collaboration with bedside consultants and IM MDs. Discussed with RN to reach out if any questions or concerns A total of 20minutes of critical care time was devoted to this patient today, r equired to treat and/or prevent further deterioration of critical care condition ( as above ) . DON CARROLL MD Sep 23, 2021 10:41
--- NOTE | 2021-09-23 10:50 | Progress Note ---
Subjective Subjective/Events-last exam Pt states she is having quite a bit of pain right now. Her belly hurts some, but her throat is also bothering her. She denies other concerns. She has not passed any gas that she is aware of. Objective Exam Last Set of Vital Signs Vital Signs Date Time Temp Pulse Resp B/P (MAP) Pulse Ox O2 Delivery O2 Flow Rate FiO2 09/23/21 10:00 76 11 140/68 (92) 94 Room Air 09/23/21 07:46 37.4 09/22/21 15:45 3 09/19/21 07:57 21 Capillary Refill : Less Than 3 Seconds I&O Intake and Output 09/23/21 00:00 Intake Total 1300 ml Output Total 1700 ml Balance -400 ml IV Total 1300 ml Output Urine Total 1540 ml Drainage Total 160 ml # Bowel Movements 5 General: Alert, No Acute Distress Lungs: Clear to Auscultation, Normal Air Movement Heart: Regular Rate, No Murmurs Abdomen: Normal Bowel Sounds, Other (incision covered with bandage with small amount of blood on bandage, PAMELA drain with sanguinous drainage) Psych/Mental Status: Mental Status NL, Mood NL Results/Procedures Lab Laboratory Tests 09/23/21 05:48: White Blood Count 10.6, Red Blood Count 3.19L, Hemoglobin 7.4L, Hematocrit 25L, Mean Corpuscular Volume 78L, Mean Corpuscular Hemoglobin 23L, Mean Corpuscular Hemoglobin Concent 30L, Red Cell Distribution Width 17.9H, Platelet Count 368, Mean Platelet Volume 9.3, Immature Granulocyte % (Auto) 0, Neutrophils (%) (Auto) 82H, Lymphocytes (%) (Auto) 12, Monocytes (%) (Auto) 6, Eosinophils (%) (Auto) 0, Basophils (%) (Auto) 0, Neutrophils # (Auto) 8.7H, Lymphocytes # (Auto) 1.3, Monocytes # (Auto) 0.7, Eosinophils # (Auto) 0.0, Basophils # (Auto) 0.0, Immature Granulocyte # (Auto) 0.0, Sodium Level 139, Potassium Level 4.1, Chloride Level 109H, Carbon Dioxide Level 20L, Anion Gap 10, Blood Urea Nitrogen 7, Creatinine 0.67, Estimat Glomerular Filtration Rate 91, BUN/Creatinine Ratio 10, Glucose Level 97, Calcium Level 8.0L, Corrected Calcium 9.0, Phosphorus Level 3.3, Magnesium Level 1.8, Total Bilirubin 0.2, Aspartate Amino Transf (AST/SGOT) 17, Alanine Aminotransferase (ALT/SGPT) 9, Alkaline Phosphatase 35L, Total Protein 4.9L, Albumin 2.7L Assessment/Plan Assessment/Plan (1) Mass of colon Status: Acute Assessment & Plan: 09/21- Plan for resection tomorrow, discussed that if results are consistent with cancer, will then discuss the options moving forward, she states she wouldn't want chemo, briefly discussed hospice services, but recommended further discussion after more information available. 09/23- s/p large colonic/small bowel mass s/p en-bloc resection sigmoid colon, small bowel and appendix on 09/22, NG in place, awaiting bowel function (2) Anemia Status: Acute Assessment & Plan: Suspect secondary to GI bleed/colon mass. Hemoglobin semi stable but low, monitor closely. s/p 1 unit transfusion this hospitalization. Qualifiers: (3) HTN (hypertension) Status: Chronic (4) HLD (hyperlipidemia) Status: Chronic (5) History of stroke Status: Chronic Assessment & Plan: October 2020, reports she was in rehab for 4 months, now in assisting living for last 4 months. (6) DVT prophylaxis Status: Acute Assessment & Plan: Enoxaparin Clinical Quality Measures DVT/VTE Risk/Contraindication: Other: ANGLE Julian MD Sep 23, 2021 10:50
[2021-09-23] MEDS: NS IV 1000 ML 1,000 ML IV SCH (11:28)
--- NOTE | 2021-09-23 17:07 | Cardiology Progress Note ---
Subjective Date Seen by Provider: Sep 23, 2021 Time Seen by Provider: 17:03 Subjective/Events-last exam Patient was seen at bedside, laying down comfortably, complaining of sore throat. Review of Systems General: No Chills, No Night Sweats; Fatigue, Malaise; No Appetite, No Other HEENT: No Head Aches, No Visual Changes, No Eye Pain, No Ear Pain, No Dysphasia, No Sinus Congestion, No Post Nasal Drip, No Sore Throat, No Other Pulmonary: No Dyspnea, No Cough, No Pleuritic Chest Pain, No Other Cardiovascular: No: Chest Pain, Palpitations, Orthopnea, Paroxysmal Noc. Dyspnea, Edema, Lt Headedness, Other Objective-Cardiology Exam Last Set of Vital Signs Vital Signs 09/19/21 09/23/21 09/23/21 09/23/21 07:57 11:00 13:00 16:00 Temp 37.0 Pulse 98 Resp 15 B/P (MAP) 141/64 (89) Pulse Ox 94 O2 Delivery Room Air FiO2 21 I&O Intake and Output 09/23/21 00:00 Intake Total 1300 ml Output Total 1700 ml Balance -400 ml IV Total 1300 ml Output Urine Total 1540 ml Drainage Total 160 ml # Bowel Movements 5 General: Alert, Cooperative, No Acute Distress HEENT: Atraumatic, PERRLA Neck: Supple, No JVD, No Thyromegaly Lungs: Clear to Auscultation, Normal Air Movement Heart: Regular Rate, No Murmurs Abdomen: Normal Bowel Sounds, Other (incision covered with bandage with small amount of blood on bandage, PAMELA drain with sanguinous drainage) Extremities: No Clubbing, No Cyanosis, No Edema Skin: No Rashes, No Breakdown, No Significant Lesion Neuro: Normal Speech, Other (flowing tardive type movements of arms and trunk) Psych/Mental Status: Mental Status NL, Mood NL Results Lab Laboratory Tests 09/23/21 05:48 A/P-Cardiology Admission Diagnosis Colon mass Anemia Cryptogenic CVA HTN Assessment/Plan Colon cancer Status post right colon and appendix and small bowel. Anastomosis. Done by Dr. Rivero on September 22, 2021. Recovering slowly. Continue to monitor Anemia, GI bleed secondary to colon mass. Transfuse as needed and continue to monitor. Management per medical services. 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 No arrhythmia has been detected so far. Hypertension, controlled, continue to monitor. Hyperlipidemia, continue to monitor. History of breast cancer. In remission History of Tobaccoism. DOROTHY RIVERA MD Sep 23, 2021 17:07
[2021-09-23] MEDS: ENOXAPARIN 40 MG/0.4 ML (LOVENOX) SYR SC SCH (20:37)
[2021-09-24] VITALS (23 sets, daily range): BP systolic 109–146; BP diastolic 63–88
[2021-09-24] MEDS: fentaNYL INJ 100 MCG/2 ML AMP IVP PRN ×3 (03:08→20:20)
[2021-09-24] MEDS: NS IV 1000 ML 1,000 ML IV SCH (04:28)
[2021-09-24 06:37] LABS: BASOPHILS % (AUTO) 0 % (0-10); EOSINOPHILS # (AUTO) 0.1 10^3/uL (0.0-0.3); EOSINOPHILS % (AUTO) 1 % (0-10); HEMATOCRIT 23 % (35-52); LYMPHOCYTES # (AUTO) 1.5 10^3/uL (1.0-4.0); LYMPHOCYTES % (AUTO) 16 % (12-44); MEAN CORPUSCULAR HEMOGLOBIN 23 pg (25-34); MEAN CORPUSCULAR HGB CONC 30 g/dL (32-36); MEAN CORPUSCULAR VOLUME 78 fL (80-99); MEAN PLATELET VOLUME 9.9 fL (9.0-12.2); MONOCYTES # (AUTO) 0.6 10^3/uL (0.0-1.0); MONOCYTES % (AUTO) 7 % (0-12); NEUTROPHILS # (AUTO) 7.4 10^3/uL (1.8-7.8); NEUTROPHILS % (AUTO) 77 % (42-75); PLATELET COUNT 333 10^3/uL (130-400); WHITE BLOOD COUNT 9.6 10^3/uL (4.3-11.0)
[2021-09-24 06:41] LABS: HEMOGLOBIN 6.7 g/dL (11.5-16.0)
[2021-09-24] MEDS: POTASSIUM CL 10MEQ/50ML IVPB 50 ML IV SCH (06:42)
[2021-09-24] MEDS: MAGNESIUM 1 GM/100 ML IVPB 100 ML IV SCH (06:42)
[2021-09-24] MEDS: KCL 20 MEQ TAB (K-DUR) PO SCH (06:42)
[2021-09-24 06:49] LABS: ALBUMIN 2.5 GM/DL (3.2-4.5); POTASSIUM 3.9 MMOL/L (3.6-5.0)
[2021-09-24 06:50] LABS: CALCIUM 7.9 MG/DL (8.5-10.1)
[2021-09-24 06:51] LABS: TOTAL PROTEIN 4.7 GM/DL (6.4-8.2)
[2021-09-24 06:53] LABS: BILIRUBIN,TOTAL 0.3 MG/DL (0.1-1.0)
[2021-09-24 06:55] LABS: CREATININE SERUM 0.6 MG/DL (0.60-1.30); PHOSPHORUS 1.8 MG/DL (2.3-4.7)
[2021-09-24 06:58] LABS: MAGNESIUM 1.8 MG/DL (1.6-2.4)
[2021-09-24] MEDS ORDERED: NS IV 500 ML 500 ML IV SCH ×2 (07:00)
[2021-09-24] MEDS ORDERED: SODIUM PHOSPHATE INJ 30 MM in NS (IVPB) 250 ML INJ ONE (07:45)
[2021-09-24] MEDS: LORazepam INJ 2 MG/ML (ATIVAN) VIAL IVP PRN (08:22)
[2021-09-24] MEDS: NYSTATIN CREAM (MYCOSTATIN) 30 GM TUBE TP SCH ×3 (08:45→20:20)
--- NOTE | 2021-09-24 08:50 | Cardiology Progress Note ---
Subjective Date Seen by Provider: Sep 24, 2021 Time Seen by Provider: 08:48 Subjective/Events-last exam Patient is laying down in bed, anxious. Denied any chest pain or shortness of breath Review of Systems General: No Chills, No Night Sweats, No Fatigue, No Malaise, No Appetite, No Other HEENT: No Head Aches, No Visual Changes, No Eye Pain, No Ear Pain, No Dysphasi a, No Sinus Congestion, No Post Nasal Drip, No Sore Throat, No Other Pulmonary: No Dyspnea, No Cough, No Pleuritic Chest Pain, No Other Cardiovascular: No: Chest Pain, Palpitations, Orthopnea, Paroxysmal Noc. Dyspnea, Edema, Lt Headedness, Other Objective-Cardiology Exam Last Set of Vital Signs Vital Signs 09/19/21 09/24/21 09/24/21 07:57 06:00 07:34 Temp 37.4 Pulse 80 Resp 16 B/P (MAP) 141/73 (95) Pulse Ox 96 O2 Delivery Nasal Cannula O2 Flow Rate 2.00 FiO2 21 I&O Intake and Output 09/24/21 00:00 Intake Total 1000 ml Output Total 1145 ml Balance -145 ml Intake Oral 0 ml IV Total 1000 ml Output Urine Total 925 ml Drainage Total 220 ml General: Alert, Cooperative, No Acute Distress HEENT: Atraumatic, PERRLA Neck: Supple, No JVD, No Thyromegaly Lungs: Clear to Auscultation, Normal Air Movement Heart: Regular Rate, No Murmurs, Other (Tachycardic) Abdomen: Normal Bowel Sounds, Other (incision covered with bandage with small amount of blood on bandage, PAMELA drain with sanguinous drainage) Extremities: No Clubbing, No Cyanosis, No Edema Skin: No Rashes, No Breakdown, No Significant Lesion Neuro: Normal Speech, Other (flowing tardive type movements of arms and trunk) Psych/Mental Status: Mental Status NL, Mood NL Results Lab Laboratory Tests 09/24/21 06:34 A/P-Cardiology Admission Diagnosis Colon mass Anemia Cryptogenic CVA HTN Assessment/Plan Colon cancer Status post right colon and appendix and small bowel. Anastomosis. Done by Dr. Rivero on September 22, 2021. Recovering slowly. Continue to monitor Anxiety, sinus tachycardia, patient will receive Ativan today, continue to monitor heart rate. Anemia, GI bleed secondary to colon mass. Transfuse as needed and continue to monitor. Management per medical services. 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 No arrhythmia has been detected so far. Hypertension, controlled, continue to monitor. Hyperlipidemia, continue to monitor. History of breast cancer. In remission History of Tobaccoism. DOROTHY RIVERA MD Sep 24, 2021 08:50
--- NOTE | 2021-09-24 09:14 | Tele-ICU Progress Note ---
Subjective Date Seen by a Provider: Sep 24, 2021 Time Seen by a Provider: 09:13 Subjective/Events-last exam This patient admitted with severe anemia and found to have a sigmoid colon mass which is invading some small bowel and appendix. Patient underwent en bloc resection of sigmoid colon small bowel and appendix resection. Post resection she had a small bowel to colon anastomosis. Patient currently resting comfortab ly however has been complaining on and off postoperative pain. She looks pale and today her hemoglobin again dropped to 6.7 and receiving packed red blood cells. She is on a nasal cannula. No acute respiratory distress present. Video visit made and discussed with the patient and RN. Review of Systems ROS PER RN Sepsis Event Evaluation Height, Weight, BMI Height: 5'8.00" Weight: 160lbs. 0.0oz. 72.028859ny; 19.60 BMI Method:Stated Exam Exam Patient acknowledged, consented, and participated in this virtual visit which was conducted using real time audio/video Vital Signs Date Time Temp Pulse Resp B/P (MAP) Pulse Ox O2 Delivery O2 Flow Rate FiO2 09/24/21 08:44 36.6 91 16 120/65 91 Nasal Cannula 2.00 09/24/21 07:34 37.4 09/24/21 07:00 78 09/24/21 06:00 80 16 141/73 (95) 96 Nasal Cannula 2.00 09/24/21 05:00 80 15 127/67 (87) 94 Nasal Cannula 2.00 09/24/21 04:00 76 15 131/67 (88) 94 Nasal Cannula 2.00 09/24/21 04:00 98 Nasal Cannula 2.00 09/24/21 03:00 86 17 136/74 (94) 99 Nasal Cannula 2.00 09/24/21 02:00 88 18 145/77 (99) 95 Nasal Cannula 2.00 09/24/21 01:07 Nasal Cannula 2.00 09/24/21 01:00 85 13 132/74 (93) 95 Room Air 09/24/21 01:00 86 09/24/21 00:00 88 16 146/79 (101) 93 Room Air 09/24/21 00:00 98 Nasal Cannula 2.00 09/23/21 23:00 79 16 144/68 (93) 93 Room Air 09/23/21 22:00 79 19 137/68 (91) 94 Room Air 09/23/21 21:00 80 14 138/60 (86) 94 Room Air 09/23/21 20:00 96 Room Air 09/23/21 20:00 78 15 131/61 (84) 93 Room Air 09/23/21 19:52 36.9 09/23/21 19:25 78 09/23/21 19:00 83 18 141/63 (89) 97 Room Air 09/23/21 18:00 84 18 127/77 (94) 98 Room Air 09/23/21 17:00 74 11 137/65 (89) 94 Room Air 09/23/21 16:00 94 Room Air 09/23/21 16:00 37.0 09/23/21 16:00 65 13 141/68 (92) 93 Room Air 09/23/21 15:00 68 15 136/63 (87) 92 Room Air 09/23/21 14:00 67 13 143/72 (95) 95 Room Air 09/23/21 13:00 85 7 125/86 (99) Room Air 09/23/21 13:00 98 09/23/21 12:00 77 14 110/94 (99) 100 Room Air 09/23/21 12:00 94 Room Air 09/23/21 12:00 36.9 09/23/21 11:00 68 15 141/64 (89) 95 Room Air 09/23/21 10:00 76 11 140/68 (92) 94 Room Air I & O 09/24/21 07:00 Intake Total 2000 ml Output Total 1340 ml Balance 660 ml Height & Weight Height: 5'8.00" Weight: 160lbs. 0.0oz. [id number]; 19.60 BMI Method:Stated General Appearance: No Apparent Distress HEENT: PERRL/EOMI Neck: Full Range of Motion Respiratory: Chest Non Tender, Lungs Clear Cardiovascular: Regular Rate, Rhythm Capillary Refill: Less Than 3 Seconds Gastrointestinal: soft, tenderness Extremity: Normal Capillary Refill Neurologic/Psychiatric: Alert, Oriented x3 Skin: Normal Color Lymphatic: No Adenopathy Other comments PE PER RN Results Lab Laboratory Tests 09/23/21 05:48 09/24/21 06:34 Assessment/Plan Assessment/Plan 1. Acute and chronic blood loss anemia combination of perioperative blood loss as well as underlying colon mass causing bleeding chronically. 2. Sigmoid colon mass suspicious highly per malignancy status post en bloc resection as mentioned above 3. History of CVA in November 2020 4. History of hypertension currently stable 5. Hyperlipidemia history continue to monitor 6. History of breast cancer currently in remission. Recommendations 1. Agree with blood transfusion to keep hemoglobin more than 7 g 2. Perioperative pain management with fentanyl and as needed morphine 3. Postoperative surgical management per general surgery 4. Continue to monitor hemoglobin, electrolytes and respiratory status 5. DVT prophylaxis and ulcer prophylaxis. 6. PT OT VILMA. Critical Care: Critically Ill Patient Time spent with patient (mins): 20 BRIAN GARCIA MD Sep 24, 2021 09:14
--- NOTE | 2021-09-24 10:47 | Physical Therapy Progress Note ---
Therapy Progress Note Due to patient low Hgb, PT will hold evaluation and initiate 09/25/21. AMBIKA CHEEMA PT Sep 24, 2021 10:47
--- NOTE | 2021-09-24 13:07 | Occ Therapy Progress Note ---
Therapy Progress Note OT orders received and chart was reviewed. Pt with low Hgb, OT to hold evaluation and attempt again on 09/25/21 if medically appropriate. Claudia Briggs OT Sep 24, 2021 13:07
[2021-09-24] MEDS: morphine INJ 4 MG/ML 1 ML (VIAL/SYRINGE) IV PRN (13:33)
--- NOTE | 2021-09-24 13:43 | Physical Therapy Evaluation ---
PT Evaluation-General Medical Diagnosis Admission Date Sep 16, 2021 at 14:18 Medical Diagnosis: Mass of colon Onset Date: Sep 16, 2021 Therapy Diagnosis Therapy Diagnosis: weakness, debility Height/Weight Height (Feet): 5 Height (Inches): 8.00 Weight (Pounds): 160 Weight (Ounces): 0.0 Precautions Precautions/Isolations: Fall Prevention, Standard Precautions Referral Physician: Mat Reason for Referral: Evaluation/Treatment Medical History Pertinent Medical History: Arthritis, Breast CA S/P Mastectomy, Smoking Additional Medical History Stroke Current History Patient presents to ED with generalized weakness and low hemoglobin. Reviewed History: Yes Social History Home: Assisted Living Current Living Status: Alone Entry Into Home: Level Entry Prior Prior Level of Function SCALE: Activities may be completed with or without assistive devices. 7-Nipvjxkezw-yesyiwx completes the activity by him/herself with no assistance from a helper. 5-Set-up or Clean-up Assistance-helper sets up or cleans up; patient completes activity. [place] assists only prior to or following the activity. 4-Supervision or Touching Assistance-helper provides verbal cues and/or touching/steadying and/or contact guard assistance as patient completes activity. Assistance may be provided throughout the activity or intermittently. 3-Partial/Moderate Assistance-helper does LESS THAN HALF the effort. [place] lifts, holds or supports trunk or limbs, but provides less than half the effort. 2-Substantial/Maximal Assistance-helper does MORE THAN HALF the effort. [place] lifts or holds trunk or limbs and provides more than half the effort. 7-Degojclbq-wasgqp does ALL the effort. Patient does none of the effort to complete the activity. Or, the assistance of 2 or more helpers is required for the patient to complete the activity. If activity was not attempted, code reason: 7-Patient Refused. 9-Not Applicable-not attempted and the patient did not perform the activity before the current illness, exacerbation or injury. 10-Not Attempted due to Environmental Limitations-(lack of equipment, weather restraints, etc.). 88-Not Attempted due to Medical Conditions or Safety Concerns. Unable to determine, patient was confused and not able to answer questions and no family was present. PT Evaluation-Current Subjective Patient presented laying in bed and reported that she wanted to sit in her wheelchair. Nursing staff reported that patient hemoglobin was up and was able to participate in physical therapy this afternoon. Objective Patient Orientation: Person Attachments: NG Tube, SCD's, Oxygen, Drains, Lane Catheter, IV ROM/Strength ROM Lower Extremities Unable to determine, patient not able to tolerate testing. Strength Lower Extremities Unable to determine, patient not able to tolerate testing. Integumentary/Posture Bladder Incontinence: Lane Cath Neuromuscular (Tone, Coordination, Reflexes) Athetiod like movements in bilateral UE while sitting EOB Sensory Vision: Functional Hearing: Functional Transfers Sit to Lying (QC): 1 Lying to Sitting/Side of Bed(Q: 1 Sit to Stand (QC): 1 Chair/Hxj-tz-Obkjl Xfer(QC): 1 Patient is dependent for all transfers into wheelchair. Gait Does the Patient Walk?: No and Walking Goal NOT indicated Mode of Locomotion: Wheelchair Anticipated Mode of Locomotion: Wheelchair Balance Sitting Static: Poor Sitting Dynamic: Poor Standing Static: Poor Standing Dynamic: Poor Assessment/Needs Patient reported that she wanted to transfer to the wheelchair. Patient was unable to sit EOB independently or perform any transfers. Patient had athetoid like movements movements while sitting. Patient reported that it was painful for her to sit in her wheelchair and requested to be transferred back to bed. Rehab Potential: Guarded PT Long-Term Goals Long-Term Goals PT Laundry [place] Goals Time Frame: Oct 03, 2021 Roll Left & Right (QC): 3 Sit to Lying (QC): 3 Lying-Sitting on Side/Bed(QC): 3 Sit to Stand (QC): 3 Chair/Aft-sx-Mywek Xfer(QC): 3 Toilet Transfer (QC): 3 Does the Patient Walk: No and Walking Goal NOT indicated PT Plan Problem List Problem List: Activity Tolerance, Functional Strength, Safety, Balance, Gait, Transfer, Bed Mobility, ROM Treatment/Plan Treatment Plan: Continue Plan of Care Treatment Plan: Bed Mobility, Education, Functional Activity Helene, Functional Strength, Gait, Safety, Therapeutic Exercise, Transfers Treatment Duration: Oct 03, 2021 Frequency: 6 times per week Estimated Hrs Per Day: .25 hour per day Time/GCodes Time In: 1321 Time Out: 1331 Total Billed Treatment Time: 10 Total Billed Treatment 1 Visit EVMod 10 min AMBIKA CHEEMA PT Sep 24, 2021 13:43
--- NOTE | 2021-09-24 13:47 | Occupational Therapy Eval ---
OT Evaluation-General/PLF Medical Diagnosis Admission Date Sep 16, 2021 at 14:18 Medical Diagnosis: Mass of colon Onset Date: Sep 16, 2021 Therapy Diagnosis Therapy Diagnosis: reduced adl status Height/Weight Height (Feet): 5 Height (Inches): 8.00 Weight (Pounds): 160 Weight (Ounces): 0.0 Precautions Precautions/Isolations: Fall Prevention, Standard Precautions Referral Referral Reason: Evaluation/Treatment Medical History Pertinent Medical History: Breast CA S/P Mastectomy, CVA (w/ L sided hemiparesis), Smoking Current History Pt arrived to ER with constipation and weakness. Found to have severe anemia. s/p large colonic/small bowel mass s/p en-bloc resection sigmoid colon, small bowel and appendix on 09/22, NG in place. Per patient she lives in an assisted living facility where she had assistance with all adls except for eating and grooming. She reports that she uses a w/c at baseline but was able to transfer independently. All IADLs performed by facility. Reviewed History: Yes Social History Home: Assisted Living Entry Into Home: Level Entry ADL-Prior Level of Function SCALE: Activities may be completed with or without assistive devices. 1-Oimugfyeck-nrevgmm completes the activity by him/herself with no assistance from a helper. 5-Set-up or Clean-up Assistance-helper sets up or cleans up; patient completes activity. [place] assists only prior to or following the activity. 4-Supervision or Touching Assistance-helper provides verbal cues and/or touching/steadying and/or contact guard assistance as patient completes activity. Assistance may be provided throughout the activity or intermittently. 3-Partial/Moderate Assistance-helper does LESS THAN HALF the effort. [place] lifts, holds or supports trunk or limbs, but provides less than half the effort. 2-Substantial/Maximal Assistance-helper does MORE THAN HALF the effort. [place] lifts or holds trunk or limbs and provides more than half the effort. 7-[place]-rsbwew does ALL the effort. Patient does none of the effort to complete the activity. Or, the assistance of 2 or more helpers is required for the patient to complete the activity. If activity was not attempted, code reason: 7-Patient Refused. 9-Not Applicable-not attempted and the patient did not perform the activity before the current illness, exacerbation or injury. 10-Not Attempted due to Environmental Limitations-(lack of equipment, weather restraints, etc.). 88-Not Attempted due to Medical Conditions or Safety Concerns. Self Care: Needed Some Help Functional Cognition: Unknown Drive Self: No OT Current Status Subjective Pt reports pain in stomach, pain meds given by nurse during assessment. RN agreeable to eval this afternoon. Appearance Pt left supine in bed, all needs within reach. Mental Status/Objective Patient Orientation: Person, Confused Attachments: Lane Catheter, IV, NG Tube, Oxygen, Telemetry Current Hearing Aids: No Hand Dominance: Right Upper Extremity ROM WFL Upper Extremity Coordination Impaired, presents with athetoid like movements Upper Extremity Strength 3/5 grossly ADL-Treatment Eating (QC): 1 (NG tube) Toileting Hygiene (QC): 1 Pt laying cockeyed in bed at OT arrival. RN reports physical therapy had just gotten patient back into bed. Refer to PT note regarding transfer assist. While in bed, pt exhibits ataxic/involuntary movements causing Difficulty to remain properly positioned in bed. Dep x2 to scoot to HOB. Pt declines all OOB/EOB activities due to c/o pain and fatigue. Min-mod a to roll to L in order to position into sidelying. Pillows placed for comfort. Education OT Patient Education: Correct positioning, Modified ADL techniques, Purpose of tx/functional activities, Safety issues, Transfer techniques Teaching Recipient: Patient Teaching Methods: Discussion Response to Teaching: Reinforcement Needed OT Senior Living Goals Fringing Machine Operator Goals Time Frame: Oct 16, 2021 Eating (QC): 4 Oral Hygiene (QC): 4 Toileting Hygiene (QC): 3 Shower/Bathe Self (QC): 3 Upper Body Dressing (QC): 3 Lower Body Dressing (QC): 3 On/Off Footwear (QC): 3 1=Demonstrate adherence to instructed precautions during ADL tasks. 2=Patient will verbalize/demonstrate understanding of assistive devices/modifications for ADL. 3=Patient will improve strength/tolerance for activity to enable patient to perform ADL's. OT Education/Plan Problem List/Assessment Assessment: Decreased Activ Tolerance, Decreased UE Strength, Dependent Transfers, Impaired Bed Mobility, Impaired Cognition, Impaired Coordination, Impaired Funct Balance, Impaired Self-Care Skills Discharge Recommendations Plan/Recommendations: Continue POC Therapy Discharge Recommendati: Post Acute OT Treatment Plan/Plan of Care Treatment,Training & Education: Yes Patient would benefit from OT for education, treatment and training to promote independence in ADL's, mobility, safety and/or upper extremity function for ADL's. Plan of Care: ADL Retraining, Functional Mobility, Group Exercise/Act as Ind, UE Funct Exercise/Act, W/C Management Training Treatment Duration: Oct 16, 2021 Frequency: 3 times per week (3-5x/week) Estimated Hrs Per Day: .25 hour per day Agreement: Yes Time/GCodes Start Time: 13:32 Stop Time: 13:45 Total Time Billed (hr/min): 13 Billed Treatment Time 1 visit Claudia Boyer OT Sep 24, 2021 13:47
[2021-09-24 14:00] LABS: HEMOGLOBIN 8.6 g/dL (11.5-16.0)
--- NOTE | 2021-09-24 14:11 | Progress Note ---
Subjective Subjective/Events-last exam Pt states she had some anxiety this morning and the medicine really helped. She denies abdominal pain, but has not passed gas yet. Objective Exam Last Set of Vital Signs Vital Signs Date Time Temp Pulse Resp B/P (MAP) Pulse Ox O2 Delivery O2 Flow Rate FiO2 09/24/21 13:11 81 09/24/21 12:37 36.9 15 144/75 100 2.00 09/24/21 12:00 Room Air 09/19/21 07:57 21 Capillary Refill : Less Than 3 Seconds I&O Intake and Output 09/24/21 00:00 Intake Total 1000 ml Output Total 1145 ml Balance -145 ml Intake Oral 0 ml IV Total 1000 ml Output Urine Total 925 ml Drainage Total 220 ml General: Alert, No Acute Distress Lungs: Clear to Auscultation, Normal Air Movement Heart: Regular Rate, No Murmurs Abdomen: Soft, Other (surgical dressing in place, drain with scant serosanguinous drainage) Extremities: No Edema Neuro: Normal Speech, Other (choreiform movements of upper and lower body) Results/Procedures Lab Laboratory Tests 09/24/21 06:34: White Blood Count 9.6, Red Blood Count 2.88L, Hemoglobin 6.7*L, Hematocrit 23L, Mean Corpuscular Volume 78L, Mean Corpuscular Hemoglobin 23L, Mean Corpuscular Hemoglobin Concent 30L, Red Cell Distribution Width 18.1H, Platelet Count 333, Mean Platelet Volume 9.9, Immature Granulocyte % (Auto) 0, Neutrophils (%) (Auto) 77H, Lymphocytes (%) (Auto) 16, Monocytes (%) (Auto) 7, Eosinophils (%) (Auto) 1, Basophils (%) (Auto) 0, Neutrophils # (Auto) 7.4, Lymphocytes # (Auto) 1.5, Monocytes # (Auto) 0.6, Eosinophils # (Auto) 0.1, Basophils # (Auto) 0.0, Immature Granulocyte # (Auto) 0.0, Sodium Level 137, Potassium Level 3.9, Chloride Level 107, Carbon Dioxide Level 21, Anion Gap 9, Blood Urea Nitrogen 8, Creatinine 0.60, Estimat Glomerular Filtration Rate 93, BUN/Creatinine Ratio 13, Glucose Level 86, Calcium Level 7.9L, Corrected Calcium 9.1, Phosphorus Level 1.8L, Magnesium Level 1.8, Total Bilirubin 0.3, Aspartate Amino Transf (AST/SGOT) 16, Alanine Aminotransferase (ALT/SGPT) 10, Alkaline Phosphatase 34L, Total Protein 4.7L, Albumin 2.5L 09/24/21 13:45: Hemoglobin 8.6L, Hematocrit 27L Assessment/Plan Assessment/Plan (1) Mass of colon Status: Acute Assessment & Plan: 09/21- Plan for resection tomorrow, discussed that if results are consistent with cancer, will then discuss the options moving forward, she states she wouldn't want chemo, briefly discussed hospice services, but recommended further discussion after more information available. 09/24- s/p large colonic/small bowel mass s/p en-bloc resection sigmoid colon, small bowel and appendix on 09/22, NG in place, awaiting bowel function (2) Anemia Status: Acute Assessment & Plan: Suspect secondary to GI bleed/colon mass. Hemoglobin semi stable but low, monitor closely. s/p 1 unit transfusion this hospitalization. 09/24- hgb 6.7, receiving second transfusion this morning. Qualifiers: (3) HTN (hypertension) Status: Chronic (4) HLD (hyperlipidemia) Status: Chronic (5) History of stroke Status: Chronic Assessment & Plan: October 2020, reports she was in rehab for 4 months, now in assisting living for last 4 months. (6) DVT prophylaxis Status: Acute Assessment & Plan: Enoxaparin Clinical Quality Measures DVT/VTE Risk/Contraindication: Other: ANGLE Julian MD Sep 24, 2021 14:11
--- NOTE | 2021-09-24 17:54 | Progress Note ---
Subjective Date Seen by a Provider: Sep 24, 2021 Time Seen by a Provider: 16:00 Subjective/Events-last exam doing ok. pain controlled. no bowel fxn yet. minimal ngt output. wound clean/dry Objective Exam Vital Signs Date Time Temp Pulse Resp B/P (MAP) Pulse Ox O2 Delivery O2 Flow Rate FiO2 09/24/21 17:00 91 17 125/71 (89) 92 Nasal Cannula 2.00 09/24/21 16:03 37.0 09/24/21 16:00 82 16 125/71 (89) 92 Nasal Cannula 2.00 09/24/21 16:00 94 Room Air 09/24/21 15:00 89 16 146/68 (94) 91 Nasal Cannula 2.00 09/24/21 14:00 84 17 143/75 (97) 91 Nasal Cannula 2.00 09/24/21 13:11 81 09/24/21 13:00 84 17 145/75 (98) 99 Nasal Cannula 2.00 09/24/21 12:37 36.9 72 15 144/75 100 2.00 09/24/21 12:00 94 Room Air 09/24/21 12:00 81 17 136/76 (96) 98 Nasal Cannula 2.00 09/24/21 11:05 37.0 09/24/21 11:00 93 18 130/78 (95) 100 Nasal Cannula 2.00 09/24/21 10:00 83 18 120/69 (86) 98 Nasal Cannula 2.00 09/24/21 09:00 92 16 109/63 (78) 98 Nasal Cannula 2.00 09/24/21 08:59 36.6 90 16 109/63 94 2.00 09/24/21 08:44 36.6 91 16 120/65 91 Nasal Cannula 2.00 09/24/21 08:00 94 Room Air 09/24/21 08:00 90 13 146/73 (97) 98 Nasal Cannula 2.00 09/24/21 07:34 37.4 09/24/21 07:00 77 15 138/74 (95) 98 Nasal Cannula 2.00 09/24/21 07:00 78 09/24/21 06:00 80 16 141/73 (95) 96 Nasal Cannula 2.00 09/24/21 05:00 80 15 127/67 (87) 94 Nasal Cannula 2.00 09/24/21 04:00 76 15 131/67 (88) 94 Nasal Cannula 2.00 09/24/21 04:00 98 Nasal Cannula 2.00 09/24/21 03:00 86 17 136/74 (94) 99 Nasal Cannula 2.00 09/24/21 02:00 88 18 145/77 (99) 95 Nasal Cannula 2.00 09/24/21 01:07 Nasal Cannula 2.00 09/24/21 01:00 85 13 132/74 (93) 95 Room Air 09/24/21 01:00 86 09/24/21 00:00 88 16 146/79 (101) 93 Room Air 09/24/21 00:00 98 Nasal Cannula 2.00 09/23/21 23:00 79 16 144/68 (93) 93 Room Air 09/23/21 22:00 79 19 137/68 (91) 94 Room Air 09/23/21 21:00 80 14 138/60 (86) 94 Room Air 09/23/21 20:00 96 Room Air 09/23/21 20:00 78 15 131/61 (84) 93 Room Air 09/23/21 19:52 36.9 09/23/21 19:25 78 09/23/21 19:00 83 18 141/63 (89) 97 Room Air 09/23/21 18:00 84 18 127/77 (94) 98 Room Air I & O 09/24/21 06:59 Intake Total 2000 ml Output Total 1340 ml Balance 660 ml Capillary Refill : Less Than 3 Seconds General Appearance: No Apparent Distress HEENT: PERRL/EOMI Neck: Full Range of Motion Respiratory: Chest Non Tender, Lungs Clear Cardiovascular: Regular Rate, Rhythm Gastrointestinal: soft, tenderness, other (wound clean/dry) Extremity: Normal Capillary Refill Neurologic/Psychiatric: Alert, Oriented x3 Skin: Normal Color Lymphatic: No Adenopathy Results Lab Laboratory Tests 09/24/21 06:34: White Blood Count 9.6, Red Blood Count 2.88L, Hemoglobin 6.7*L, Hematocrit 23L, Mean Corpuscular Volume 78L, Mean Corpuscular Hemoglobin 23L, Mean Corpuscular Hemoglobin Concent 30L, Red Cell Distribution Width 18.1H, Platelet Count 333, Mean Platelet Volume 9.9, Immature Granulocyte % (Auto) 0, Neutrophils (%) (Auto) 77H, Lymphocytes (%) (Auto) 16, Monocytes (%) (Auto) 7, Eosinophils (%) (Auto) 1, Basophils (%) (Auto) 0, Neutrophils # (Auto) 7.4, Lymphocytes # (Auto) 1.5, Monocytes # (Auto) 0.6, Eosinophils # (Auto) 0.1, Basophils # (Auto) 0.0, Immature Granulocyte # (Auto) 0.0, Sodium Level 137, Potassium Level 3.9, Chloride Level 107, Carbon Dioxide Level 21, Anion Gap 9, Blood Urea Nitrogen 8, Creatinine 0.60, Estimat Glomerular Filtration Rate 93, BUN/Creatinine Ratio 13, Glucose Level 86, Calcium Level 7.9L, Corrected Calcium 9.1, Phosphorus Level 1.8L, Magnesium Level 1.8, Total Bilirubin 0.3, Aspartate Amino Transf (AST/SGOT) 16, Alanine Aminotransferase (ALT/SGPT) 10, Alkaline Phosphatase 34L, Total Protein 4.7L, Albumin 2.5L 09/24/21 13:45: Hemoglobin 8.6L, Hematocrit 27L Assessment/Plan Assessment/Plan Assess & Plan/Chief Complaint anemia with dark stools and large colonic/small bowel mass s/p en-bloc resection sigmoid colon, small bowel and appendix. reflux eosphagitis with stricture s/p bs and dilatation. descending colonic mass with extensive diverticulosis. cont NGT and await bowel fxn. OOB to chair. cont DVT prophylaxis. Clinical Quality Measures DVT/VTE Risk/Contraindication: Other: CARSON Hurtado MD Sep 24, 2021 17:54
[2021-09-24] MEDS: ENOXAPARIN 40 MG/0.4 ML (LOVENOX) SYR SC SCH (20:20)
[2021-09-25] VITALS: BP 132/69
[2021-09-25] MEDS: LORazepam INJ 2 MG/ML (ATIVAN) VIAL IVP PRN ×3 (00:12→18:56)
[2021-09-25] MEDS: fentaNYL INJ 100 MCG/2 ML AMP IVP PRN ×5 (00:14→18:01)
[2021-09-25] MEDS: NS IV 1000 ML 1,000 ML IV SCH ×2 (02:22→18:04)
[2021-09-25 04:00] VITALS: BP 114/60
[2021-09-25 05:16] LABS: BASOPHILS % (AUTO) 0 % (0-10); EOSINOPHILS # (AUTO) 0.1 10^3/uL (0.0-0.3); EOSINOPHILS % (AUTO) 1 % (0-10); HEMATOCRIT 25 % (35-52); LYMPHOCYTES # (AUTO) 1.5 10^3/uL (1.0-4.0); LYMPHOCYTES % (AUTO) 14 % (12-44); MEAN CORPUSCULAR HEMOGLOBIN 25 pg (25-34); MEAN CORPUSCULAR HGB CONC 32 g/dL (32-36); MEAN CORPUSCULAR VOLUME 79 fL (80-99); MEAN PLATELET VOLUME 9.3 fL (9.0-12.2); MONOCYTES # (AUTO) 0.7 10^3/uL (0.0-1.0); MONOCYTES % (AUTO) 6 % (0-12); NEUTROPHILS # (AUTO) 8.7 10^3/uL (1.8-7.8); NEUTROPHILS % (AUTO) 78 % (42-75); PLATELET COUNT 293 10^3/uL (130-400); WHITE BLOOD COUNT 11.1 10^3/uL (4.3-11.0)
[2021-09-25 05:32] LABS: ALBUMIN 2.3 GM/DL (3.2-4.5); POTASSIUM 3.7 MMOL/L (3.6-5.0)
[2021-09-25 05:33] LABS: CALCIUM 7.9 MG/DL (8.5-10.1)
[2021-09-25 05:35] LABS: TOTAL PROTEIN 4.5 GM/DL (6.4-8.2)
[2021-09-25 05:36] LABS: BILIRUBIN,TOTAL 0.3 MG/DL (0.1-1.0)
[2021-09-25 05:38] LABS: CREATININE SERUM 0.58 MG/DL (0.60-1.30)
[2021-09-25 05:41] LABS: MAGNESIUM 1.8 MG/DL (1.6-2.4)
[2021-09-25] MEDS: POTASSIUM CL 10MEQ/50ML IVPB 50 ML IV SCH (05:53)
[2021-09-25] MEDS: KCL 20 MEQ TAB (K-DUR) PO SCH (05:53)
[2021-09-25] MEDS: MAGNESIUM 1 GM/100 ML IVPB 100 ML IV SCH (05:53)
[2021-09-25 07:44] VITALS: BP 138/71
[2021-09-25] MEDS ORDERED: POTASSIUM PHOSPHATE INJ 30 MM in NS (IVPB) 250 ML IV ONE (08:00)
--- NOTE | 2021-09-25 08:07 | Physical Therapy Progress Note ---
Therapy Progress Note Patient refused therapy services this morning. Patient reports she didn't sleep well and wanted to stay in bed. 1, Ref AMBIKA CHEEMA PT Sep 25, 2021 08:07
[2021-09-25] MEDS: NYSTATIN CREAM (MYCOSTATIN) 30 GM TUBE TP SCH ×3 (09:33→21:12)
--- NOTE | 2021-09-25 10:01 | Cardiology Progress Note ---
Subjective Date Seen by Provider: Sep 25, 2021 Time Seen by Provider: 09:58 Subjective/Events-last exam Patient is laying down in bed, lethargic. No new complaint Review of Systems General: No Chills, No Night Sweats; Fatigue, Malaise; No Appetite, No Other HEENT: No Head Aches, No Visual Changes, No Eye Pain, No Ear Pain, No Dysphasia, No Sinus Congestion, No Post Nasal Drip, No Sore Throat, No Other Pulmonary: No Dyspnea, No Cough, No Pleuritic Chest Pain, No Other Cardiovascular: No: Chest Pain, Palpitations, Orthopnea, Paroxysmal Noc. Dyspnea, Edema, Lt Headedness, Other Objective-Cardiology Exam Last Set of Vital Signs Vital Signs 09/19/21 09/25/21 09/25/21 07:57 07:44 08:00 Temp 37.0 Pulse 84 Resp 17 B/P (MAP) 138/71 (93) Pulse Ox 98 O2 Delivery Nasal Cannula O2 Flow Rate 2.00 FiO2 21 I&O Intake and Output 09/25/21 00:00 Intake Total 1000 ml Output Total 1460 ml Balance -460 ml Intake Oral 0 ml IV Total 1000 ml Output Urine Total 1150 ml Gastric Drainage Total 120 ml Drainage Total 190 ml General: Alert, Cooperative, No Acute Distress HEENT: Atraumatic, PERRLA Neck: Supple, No JVD, No Thyromegaly Lungs: Clear to Auscultation, Normal Air Movement Heart: Regular Rate, Normal S1, Normal S2, No Murmurs Abdomen: Soft, Other (surgical dressing in place, drain with scant serosanguinous drainage, absent bowel sounds) Extremities: No Edema Skin: No Rashes, No Breakdown, No Significant Lesion Neuro: Normal Speech, Other (choreiform movements of upper and lower body) Psych/Mental Status: Mental Status NL, Mood NL Results Lab Laboratory Tests 09/24/21 13:45 09/25/21 05:10 A/P-Cardiology Admission Diagnosis Colon mass Anemia Cryptogenic CVA HTN Assessment/Plan Colon cancer Status post sigmoid colon resection, appendectomy and small bowel resection. Managed by Dr. Rivero Postop ileus, managed by Dr. Rivero Anxiety, better today, managed by medical team Anemia, GI bleed secondary to colon mass. 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 No arrhythmia has been detected so far. Hypertension, controlled, continue to monitor. Hyperlipidemia, continue to monitor. History of breast cancer. In remission History of Tobaccoism. DOROTHY RIVERA MD Sep 25, 2021 10:01
[2021-09-25] MEDS: morphine INJ 4 MG/ML 1 ML (VIAL/SYRINGE) IV PRN ×2 (10:55→22:29)
--- NOTE | 2021-09-25 11:32 | Occ Therapy Progress Note ---
Therapy Progress Note Pt refuses OT treatment due to c/o pain and high anxiety. Per patient request, RN notified for more anxiety meds. OT to attempt again 09/28/21 if appropriate. Claudia Briggs OT Sep 25, 2021 11:32
[2021-09-25 12:00] VITALS: BP 108/66
--- NOTE | 2021-09-25 12:31 | Progress Note ---
Subjective Date Seen by a Provider: Sep 25, 2021 Time Seen by a Provider: 11:00 Subjective/Events-last exam doing ok. had some bowel sounds but no flatus yet. minimal ngt output. wound clean/dry. Objective Exam Vital Signs Date Time Temp Pulse Resp B/P (MAP) Pulse Ox O2 Delivery O2 Flow Rate FiO2 09/25/21 12:21 98 Nasal Cannula 2.00 09/25/21 08:00 98 Nasal Cannula 2.00 09/25/21 08:00 37.0 09/25/21 07:44 37.0 84 17 138/71 (93) 100 Nasal Cannula 2.00 09/25/21 07:00 83 09/25/21 04:00 98 Nasal Cannula 2.00 09/25/21 04:00 86 16 114/60 (78) 100 Nasal Cannula 2.00 09/25/21 04:00 37.1 09/25/21 01:00 89 09/25/21 00:52 Nasal Cannula 2.00 09/25/21 00:00 94 Room Air 09/25/21 00:00 85 17 132/69 (90) 99 Nasal Cannula 2.00 09/25/21 00:00 37.6 09/24/21 20:00 94 Room Air 09/24/21 20:00 97 18 132/66 (88) 100 Nasal Cannula 2.00 09/24/21 19:18 37.3 09/24/21 19:00 98 09/24/21 18:11 100 27 143/88 (106) 98 Nasal Cannula 2.00 09/24/21 17:00 91 17 125/71 (89) 92 Nasal Cannula 2.00 09/24/21 16:03 37.0 09/24/21 16:00 82 16 125/71 (89) 92 Nasal Cannula 2.00 09/24/21 16:00 94 Room Air 09/24/21 15:00 89 16 146/68 (94) 91 Nasal Cannula 2.00 09/24/21 14:00 84 17 143/75 (97) 91 Nasal Cannula 2.00 09/24/21 13:11 81 09/24/21 13:00 84 17 145/75 (98) 99 Nasal Cannula 2.00 09/24/21 12:37 36.9 72 15 144/75 100 2.00 I & O 09/25/21 07:00 Intake Total 1000 ml Output Total 1335 ml Balance -335 ml Capillary Refill : Less Than 3 Seconds General Appearance: No Apparent Distress HEENT: PERRL/EOMI Neck: Full Range of Motion Respiratory: Chest Non Tender, Lungs Clear Cardiovascular: Regular Rate, Rhythm Gastrointestinal: soft, tenderness, other (wound clean/dry) Extremity: Normal Capillary Refill Neurologic/Psychiatric: Alert, Oriented x3 Skin: Normal Color Lymphatic: No Adenopathy Results Lab Laboratory Tests 09/24/21 13:45: Hemoglobin 8.6L, Hematocrit 27L 09/25/21 05:10: Hemoglobin 8.0L, Hematocrit 25L, White Blood Count 11.1H, Red Blood Count 3.20L, Mean Corpuscular Volume 79L, Mean Corpuscular Hemoglobin 25, Mean Corpuscular Hemoglobin Concent 32, Red Cell Distribution Width 17.9H, Platelet Count 293, Mean Platelet Volume 9.3, Immature Granulocyte % (Auto) 1, Neutrophils (%) (Auto) 78H, Lymphocytes (%) (Auto) 14, Monocytes (%) (Auto) 6, Eosinophils (%) (Auto) 1, Basophils (%) (Auto) 0, Neutrophils # (Auto) 8.7H, Lymphocytes # (Auto) 1.5, Monocytes # (Auto) 0.7, Eosinophils # (Auto) 0.1, Basophils # (Auto) 0.0, Immature Granulocyte # (Auto) 0.1, Sodium Level 137, Potassium Level 3.7, Chloride Level 107, Carbon Dioxide Level 20L, Anion Gap 10, Blood Urea Nitrogen 6L, Creatinine 0.58L, Estimat Glomerular Filtration Rate 94, BUN/Creatinine Ratio 10, Glucose Level 78, Calcium Level 7.9L, Corrected Calcium 9.3, Phosphorus Level 2.0L, Magnesium Level 1.8, Total Bilirubin 0.3, Aspartate Amino Transf (AST/SGOT) 12, Alanine Aminotransferase (ALT/SGPT) 9, Alkaline Phosphatase 40, Total Protein 4.5L, Albumin 2.3L Microbiology 09/22/21 MRSA Screen - Final, Complete MRSA not isolated Assessment/Plan Assessment/Plan Assess & Plan/Chief Complaint anemia with dark stools and large colonic/small bowel mass s/p en-bloc resection sigmoid colon, small bowel and appendix. reflux eosphagitis with stricture s/p bs and dilatation. descending colonic mass with extensive diverticulosis. cont NGT and await bowel fxn. OOB to chair. cont DVT prophylaxis. 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 ca at tip of appendix and no invasion rt colon so no other surgery required. Clinical Quality Measures DVT/VTE Risk/Contraindication: Other: CARSON Hurtado MD Sep 25, 2021 12:30
--- NOTE | 2021-09-25 15:07 | Progress Note ---
Subjective Subjective/Events-last exam Afebrile, states she is feeling okay, denies questions, just asking for ice chips which were brought to her. Objective Exam Last Set of Vital Signs Vital Signs Date Time Temp Pulse Resp B/P (MAP) Pulse Ox O2 Delivery O2 Flow Rate FiO2 09/25/21 13:00 99 09/25/21 12:21 98 Nasal Cannula 2.00 09/25/21 12:00 36.4 13 108/66 (80) 09/19/21 07:57 21 Capillary Refill : Less Than 3 Seconds I&O Intake and Output 09/25/21 00:00 Intake Total 1000 ml Output Total 1460 ml Balance -460 ml Intake Oral 0 ml IV Total 1000 ml Output Urine Total 1150 ml Gastric Drainage Total 120 ml Drainage Total 190 ml General: Alert, No Acute Distress Lungs: Clear to Auscultation, Normal Air Movement Heart: Regular Rate, No Murmurs Abdomen: Normal Bowel Sounds, Other (NG in place with dark drainage, surgical drain with mostly serous drainage in bulb) Neuro: Normal Speech Results/Procedures Lab Laboratory Tests 09/25/21 05:10: White Blood Count 11.1H, Red Blood Count 3.20L, Hemoglobin 8.0L, Hematocrit 25L, Mean Corpuscular Volume 79L, Mean Corpuscular Hemoglobin 25, Mean Corpuscular Hemoglobin Concent 32, Red Cell Distribution Width 17.9H, Platelet Count 293, Mean Platelet Volume 9.3, Immature Granulocyte % (Auto) 1, Neutrophils (%) (Auto) 78H, Lymphocytes (%) (Auto) 14, Monocytes (%) (Auto) 6, Eosinophils (%) (Auto) 1, Basophils (%) (Auto) 0, Neutrophils # (Auto) 8.7H, Lymphocytes # (Auto) 1.5, Monocytes # (Auto) 0.7, Eosinophils # (Auto) 0.1, Basophils # (Auto) 0.0, Immature Granulocyte # (Auto) 0.1, Sodium Level 137, Potassium Level 3.7, Chloride Level 107, Carbon Dioxide Level 20L, Anion Gap 10, Blood Urea Nitrogen 6L, Creatinine 0.58L, Estimat Glomerular Filtration Rate 94, BUN/Creatinine Ratio 10, Glucose Level 78, Calcium Level 7.9L, Corrected Calcium 9.3, Phosphorus Level 2.0L, Magnesium Level 1.8, Total Bilirubin 0.3, Aspartate Amino Transf (AST/SGOT) 12, Alanine Aminotransferase (ALT/SGPT) 9, Alkaline Phosphatase 40, Total Protein 4.5L, Albumin 2.3L Microbiology 09/22/21 MRSA Screen - Final, Complete MRSA not isolated Assessment/Plan Assessment/Plan (1) Mass of colon Status: Acute Assessment & Plan: 09/21- Plan for resection tomorrow, discussed that if results are consistent with cancer, will then discuss the options moving forward, she states she wouldn't want chemo, briefly discussed hospice services, but recommended further discussion after more information available. 09/25- s/p large colonic/small bowel mass s/p en-bloc resection sigmoid colon, small bowel and appendix on 09/22, NG in place, awaiting bowel function (2) Anemia Status: Acute Assessment & Plan: Suspect secondary to GI bleed/colon mass. Hemoglobin semi stable but low, monitor closely. s/p 1 unit transfusion this hospitalization. 09/24- hgb 6.7, receiving second transfusion this morning. Qualifiers: (3) HTN (hypertension) Status: Chronic (4) HLD (hyperlipidemia) Status: Chronic (5) History of stroke Status: Chronic Assessment & Plan: October 2020, reports she was in rehab for 4 months, now in assisting living for last 4 months. (6) DVT prophylaxis Status: Acute Assessment & Plan: Enoxaparin Clinical Quality Measures DVT/VTE Risk/Contraindication: Other: ANGLE Julian MD Sep 25, 2021 15:07
[2021-09-25 15:45] VITALS: BP 137/66
[2021-09-25 19:31] VITALS: BP 133/63
[2021-09-25] MEDS: ENOXAPARIN 40 MG/0.4 ML (LOVENOX) SYR SC SCH (21:12)
[2021-09-26] VITALS: BP 135/71
[2021-09-26 03:52] VITALS: BP 144/75
[2021-09-26 05:50] LABS: BASOPHILS % (AUTO) 0 % (0-10); EOSINOPHILS # (AUTO) 0.1 10^3/uL (0.0-0.3); EOSINOPHILS % (AUTO) 0 % (0-10); HEMATOCRIT 26 % (35-52); HEMOGLOBIN 8.1 g/dL (11.5-16.0); LYMPHOCYTES # (AUTO) 1.1 10^3/uL (1.0-4.0); LYMPHOCYTES % (AUTO) 8 % (12-44); MEAN CORPUSCULAR HEMOGLOBIN 25 pg (25-34); MEAN CORPUSCULAR HGB CONC 31 g/dL (32-36); MEAN CORPUSCULAR VOLUME 80 fL (80-99); MEAN PLATELET VOLUME 10.2 fL (9.0-12.2); MONOCYTES # (AUTO) 0.8 10^3/uL (0.0-1.0); MONOCYTES % (AUTO) 6 % (0-12); NEUTROPHILS # (AUTO) 11.3 10^3/uL (1.8-7.8); NEUTROPHILS % (AUTO) 85 % (42-75); PLATELET COUNT 359 10^3/uL (130-400); WHITE BLOOD COUNT 13.4 10^3/uL (4.3-11.0)
[2021-09-26] MEDS: KCL 20 MEQ TAB (K-DUR) PO SCH (05:52)
--- NOTE | 2021-09-26 05:54 | Progress Note - Hospitalist ---
Subjective HPI/CC On Admission Date Seen by Provider: Sep 26, 2021 Time Seen by Provider: 10:30 Chief complaint: Symptomatic anemia History of present illness: This is a 76-year-old white female known to me from prior CVA managed in inpatient rehab who presents to the ER with constipation and weakness found to have severe anemia requiring 1 unit of blood yesterday. Colon mass was noted on CT scan. Patient will undergo scopes. Subjective/Events-last exam Patient resting NGT in place No flatus yet IVF maintained No concerns per english composition instructor of Systems General: Fatigue, Malaise Objective Exam Vital Signs Vital Signs Date Time Temp Pulse Resp B/P (MAP) Pulse Ox O2 Delivery O2 Flow Rate FiO2 09/26/21 20:02 Nasal Cannula 2.00 09/26/21 19:59 37.3 82 18 146/65 (92) 99 Capillary Refill : Less Than 3 Seconds General Appearance: WD/WN, Chronically ill, Other (asleep) Respiratory: Lungs Clear, Normal Breath Sounds Cardiovascular: Regular Rate, Rhythm Results/Procedures Lab Laboratory Tests 09/26/21 05:38 Patient resulted labs reviewed. Assessment/Plan Assessment and Plan Assess & Plan/Chief Complaint Assessment: Symptomatic anemia hemoglobin 6.8 status post transfusion of 2 units total since admit Colon mass Recent constipation History of CVA with left-sided hemiparesis CAD Former smoker Plan: Cardiology eval Monitor hemoglobin 09/18/2021: Monitor hemoglobin 09/19/2021: Monitor hemoglobin 09/20/2021: Monitor hemoglobin Resection Tuesday09/26/21: Monitor closely Critical Care Critically Ill Patient Clinical Quality Measures DVT/VTE Risk/Contraindication: Other: MOHIT Kincaid DO Sep 26, 2021 05:54
[2021-09-26] MEDS: POTASSIUM CL 10MEQ/50ML IVPB 50 ML IV SCH (06:00)
[2021-09-26] MEDS: MAGNESIUM 1 GM/100 ML IVPB 100 ML IV SCH ×3 (06:00→08:20)
[2021-09-26 06:04] LABS: ALBUMIN 2.4 GM/DL (3.2-4.5); POTASSIUM 3.9 MMOL/L (3.6-5.0)
[2021-09-26 06:05] LABS: CALCIUM 8.2 MG/DL (8.5-10.1)
[2021-09-26 06:06] LABS: TOTAL PROTEIN 4.8 GM/DL (6.4-8.2)
[2021-09-26 06:08] LABS: BILIRUBIN,TOTAL 0.3 MG/DL (0.1-1.0)
[2021-09-26 06:09] LABS: PHOSPHORUS 2.3 MG/DL (2.3-4.7)
[2021-09-26 06:10] LABS: CREATININE SERUM 0.6 MG/DL (0.60-1.30)
[2021-09-26 06:12] LABS: MAGNESIUM 1.7 MG/DL (1.6-2.4)
[2021-09-26] MEDS ORDERED: MAGNESIUM 1 GM/100 ML IVPB 100 ML IV ONE (06:30)
[2021-09-26 07:37] VITALS: BP 141/67
[2021-09-26] MEDS: fentaNYL INJ 100 MCG/2 ML AMP IVP PRN ×2 (08:20→19:18)
--- NOTE | 2021-09-26 08:22 | Progress Note - Surgery ---
RADHAROMY 09/26/21 0822: Subjective Date Seen by a Provider: Sep 26, 2021 Time Seen by a Provider: 07:20 Subjective/Events-last exam Pt is POD4 for en-block large bowl resection Pt is feeling better today and confirms passing flatus last night and this morning. She complains of some pain from the abdomen with palpation Abdominal drain producing serious sanguineous fluid. Review of Systems General: No Chills, No Night Sweats; Appetite HEENT: No Head Aches, No Visual Changes, No Eye Pain Pulmonary: No Dyspnea, No Cough, No Pleuritic Chest Pain Cardiovascular: No: Chest Pain, Palpitations, Edema Gastrointestinal: Abdominal Pain; No: Nausea, Vomiting, Diarrhea, Melena, Hematochezia Genitourinary: No Dysuria, No Frequency, No Incontinence Musculoskeletal: No: neck pain, shoulder pain, back pain Neurological: No: Weakness, Numbness, Incoordination Objective Exam Vital Signs Date Time Temp Pulse Resp B/P (MAP) Pulse Ox O2 Delivery O2 Flow Rate FiO2 09/26/21 07:37 36.5 105 20 141/67 (91) 95 Room Air 09/26/21 03:52 35.9 93 19 144/75 (98) 96 Nasal Cannula 2.00 09/26/21 00:00 37.4 96 18 135/71 (92) 95 Nasal Cannula 2.00 09/25/21 21:47 98 Nasal Cannula 2.00 09/25/21 19:31 37.4 106 22 133/63 (86) 98 Room Air 09/25/21 15:45 36.5 92 16 137/66 (89) 99 Room Air 09/25/21 13:00 99 09/25/21 12:21 98 Nasal Cannula 2.00 09/25/21 12:00 36.4 74 13 108/66 (80) 90 Room Air I & O 09/26/21 07:00 Intake Total 0 ml Output Total 1520 ml Balance -1520 ml Capillary Refill : Less Than 3 Seconds General Appearance: No Apparent Distress, Thin HEENT: PERRL/EOMI, Other (NGT in place) Neck: Full Range of Motion, Non Tender, Supple Respiratory: Chest Non Tender, Lungs Clear, Normal Breath Sounds, No Accessory Muscle Use, No Respiratory Distress Cardiovascular: Regular Rate, Rhythm, No Edema, No Gallop, No Murmur, Normal Peripheral Pulses Peripheral Pulses: 2+ Radial Pulses (R), 2+ Radial Pulses (L) Gastrointestinal: soft, tenderness, other (wound clean/dry - single drain in place producing serious sanguineous fluid.) Extremity: Normal Capillary Refill, Normal Range of Motion, Non Tender, No Calf Tenderness, No Pedal Edema Neurologic/Psychiatric: Alert, Oriented x3, No Motor/Sensory Deficits Skin: Normal Color, Warm/Dry Lymphatic: No Adenopathy (Cervical or axillary) Results Lab Laboratory Tests 09/26/21 05:38: White Blood Count 13.4H, Red Blood Count 3.29L, Hemoglobin 8.1L, Hematocrit 26L, Mean Corpuscular Volume 80, Mean Corpuscular Hemoglobin 25, Mean Corpuscular Hemoglobin Concent 31L, Red Cell Distribution Width 18.3H, Platelet Count 359, Mean Platelet Volume 10.2, Immature Granulocyte % (Auto) 1, Neutrophils (%) (Auto) 85H, Lymphocytes (%) (Auto) 8L, Monocytes (%) (Auto) 6, Eosinophils (%) (Auto) 0, Basophils (%) (Auto) 0, Neutrophils # (Auto) 11.3H, Lymphocytes # (Auto) 1.1, Monocytes # (Auto) 0.8, Eosinophils # (Auto) 0.1, Basophils # (Auto) 0.0, Immature Granulocyte # (Auto) 0.1, Sodium Level 138, Potassium Level 3.9, Chloride Level 107, Carbon Dioxide Level 17L, Anion Gap 14, Blood Urea Nitrogen 7, Creatinine 0.60, Estimat Glomerular Filtration Rate 93, BUN/Creatinine Ratio 12, Glucose Level 80, Calcium Level 8.2L, Corrected Calcium 9.5, Phosphorus Level 2.3, Magnesium Level 1.7, Total Bilirubin 0.3, Aspartate Amino Transf (AST/SGOT) 13, Alanine Aminotransferase (ALT/SGPT) 8, Alkaline Phosphatase 51, Total Protein 4.8L, Albumin 2.4L Microbiology 09/22/21 MRSA Screen - Final, Complete MRSA not isolated Assessment/Plan Assessment/Plan Assessment/Plan POD 4 - s/p en-bloc resection sigmoid colon, small bowel and appendix. (anemia with dark stools and large colonic/small bowel mass reflux eosphagitis with stricture s/p bs and dilatation. descending colonic mass with extensive diverticulosis. 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 ca at tip of appendix and no invasion rt colon so no other surgery required.) Plan - DC NGT tube - advance to liquid diet Ambulation DVT prophylaxis Clinical Quality Measures DVT/VTE Risk/Contraindication: Other: abbey MICHEALREYES ROJAS 09/26/21 1320: Subjective Time Seen by a Provider: 11:17 Subjective/Events-last exam Pt seen and examined, has NGT and complains of some pain. Nurse states she is a little confused, which is her baseline. Review of Systems Pulmonary: No Dyspnea, No Cough Cardiovascular: No: Chest Pain, Palpitations Gastrointestinal: Abdominal Pain; No: Nausea, Vomiting Objective Exam General Appearance: No Apparent Distress, Thin Respiratory: Lungs Clear, Normal Breath Sounds, No Accessory Muscle Use, No Respiratory Distress Cardiovascular: Regular Rate, Rhythm, No Murmur Gastrointestinal: soft, tenderness, other (wound clean/dry - single drain in place producing serious sanguineous fluid.) Assessment/Plan Assessment/Plan Assessment/Plan Anemia - probably secondary to chronic and some blood loss from surgery WBC has increased - will monitor POD 4 - s/p en-bloc resection sigmoid colon, small bowel and appendix - 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 Stated she had flatus, but unsure if that is true. Would hold off on starting diet until we get better bowel function. Encourage IS use and ambulate with assist, DVT prophylaxis while pt not moving. Supervisory-Addendum Brief Verification & Attestation Participated in pt care: history, MDM, physical Personally performed: exam, history, MDM, supervision of care Care discussed with: Medical Student Procedures: n/a Verification and Attestation of Medical Student E/M Service A medical student performed and documented this service. I then reviewed and verified all information documented by the medical student and made modifications to such information, when appropriate. I personally performed a physical exam, medical decision making and then discussed any differences between the notes and made revisions as necessary to create one note. Reyes Rey , 09/26/21 , 13:20 ROMY GARCIA Sep 26, 2021 08:22 REYES REY DO Sep 26, 2021 13:20
[2021-09-26] MEDS: NYSTATIN CREAM (MYCOSTATIN) 30 GM TUBE TP SCH ×3 (09:17→20:36)
[2021-09-26] MEDS: NS IV 1000 ML 1,000 ML IV SCH (09:18)
--- NOTE | 2021-09-26 09:46 | Physical Therapy Progress Note ---
Therapy Progress Note Patient refused treatment due to reports of severe abdominal pain at 05/03. Patient was educated on benefits of getting out of bed to prevent bed sores, DVT, pneumonia and to promote healing. Patient still declined. Will attempt PT treatment at next available time. YAMIL SHI PT Sep 26, 2021 09:46
[2021-09-26 11:44] VITALS: BP 147/85
[2021-09-26] MEDS ORDERED: MEROPENEM 1,000 MG in NS (IVPB) 100 ML IV SCH (13:45)
[2021-09-26] MEDS: MEROPENEM 500 MG/NS 100 ML IVPB IV SCH ×4 (14:17→20:29)
[2021-09-26] MEDS: ALPRAZolam 0.25 MG (XANAX) TAB PO PRN (14:44)
--- NOTE | 2021-09-26 15:20 | Progress Note - Cardiology ---
Cardiology SOAP Progress Note Subjective: Very little response to questions Does not report cp or palp or syncope or shortness of breath or other symptoms Objective: I&O/Vital Signs 09/26/21 09/26/21 09/26/21 09/26/21 03:52 07:37 08:30 09:25 Temp 35.9 36.5 36.5 Pulse 93 105 Resp 19 20 B/P (MAP) 144/75 (98) 141/67 (91) Pulse Ox 96 95 98 O2 Delivery Nasal Cannula Room Air Nasal Cannula O2 Flow Rate 2.00 2.00 09/26/21 11:44 Temp 37.0 Pulse 89 Resp 20 B/P (MAP) 147/85 (105) Pulse Ox 96 O2 Delivery Room Air 09/25/21 23:59 Intake Total 0 ml Output Total 920 ml Balance -920 ml Weight (Pounds): 160 Weight (Ounces): 0.0 Weight (Calculated Kilograms): 72.026465 Constitutional: well-developed, other (thin-appearing, somnolent) Respiratory: No accessory muscle use; other (good, bilateral air entry) Cardiovascular: regular rate-rhythm, systolic murmur (soft BARRETT at card base) Gastrointestional: No tender; soft; No guarding, No rebound; audible bowel sounds Extremities: No clubbing, No cyanosis, No significant edema Neurologic/Psychiatric: other (moves all limbs equally) Skin: No rash on exposed areas, No ulcerations on exposed areas Results/Procedures: Labs Laboratory Tests 09/26/21 05:38: White Blood Count 13.4H, Red Blood Count 3.29L, Hemoglobin 8.1L, Hematocrit 26L, Mean Corpuscular Volume 80, Mean Corpuscular Hemoglobin 25, Mean Corpuscular Hemoglobin Concent 31L, Red Cell Distribution Width 18.3H, Platelet Count 359, Mean Platelet Volume 10.2, Immature Granulocyte % (Auto) 1, Neutrophils (%) (Auto) 85H, Lymphocytes (%) (Auto) 8L, Monocytes (%) (Auto) 6, Eosinophils (%) (Auto) 0, Basophils (%) (Auto) 0, Neutrophils # (Auto) 11.3H, Lymphocytes # (Auto) 1.1, Monocytes # (Auto) 0.8, Eosinophils # (Auto) 0.1, Basophils # (Auto) 0.0, Immature Granulocyte # (Auto) 0.1, Sodium Level 138, Potassium Level 3.9, Chloride Level 107, Carbon Dioxide Level 17L, Anion Gap 14, Blood Urea Nitrogen 7, Creatinine 0.60, Estimat Glomerular Filtration Rate 93, BUN/Creatinine Ratio 12, Glucose Level 80, Calcium Level 8.2L, Corrected Calcium 9.5, Phosphorus Level 2.3, Magnesium Level 1.7, Total Bilirubin 0.3, Aspartate Amino Transf (AST/SGOT) 13, Alanine Aminotransferase (ALT/SGPT) 8, Alkaline Phosphatase 51, Total Protein 4.8L, Albumin 2.4L Microbiology 09/22/21 MRSA Screen - Final, Complete MRSA not isolated Laboratory Tests 09/25/21 05:10 09/26/21 05:38 A/P: Assessment: Colon cancer - Status post sigmoid colon resection, appendectomy and small bowel resection by Dr. 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 No arrhythmia has been detected so far. Monitored by Dr Newby Hypertension, controlled Hyperlipidemia History of breast cancer. In remission Former smoker Anxiety, better today, managed by medical team Anemia, GI bleed secondary to colon mass. 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 No arrhythmia has been detected so far. Hypertension, controlled, continue to monitor. Hyperlipidemia, continue to monitor. History of breast cancer. In remission History of Tobaccoism. Plan: Complex management due to multiple comorbidities (see above) Monitor labs PAYAM MELENDEZ MD FACP FACC CCDS Sep 26, 2021 15:20
[2021-09-26 15:34] VITALS: BP 136/65
[2021-09-26 19:59] VITALS: BP 146/65
[2021-09-26] MEDS: ENOXAPARIN 40 MG/0.4 ML (LOVENOX) SYR SC SCH (20:30)
[2021-09-26] MEDS: BISACODYL 5 MG (DULCOLAX) TABLET PO SCH (20:30)
[2021-09-26] MEDS: MELATONIN 3 MG TABLET PO PRN (20:30)
[2021-09-27] VITALS (7 sets, daily range): BP systolic 131–147; BP diastolic 51–70
[2021-09-27] MEDS: MEROPENEM 500 MG/NS 100 ML IVPB IV SCH ×8 (02:11→20:17)
[2021-09-27] MEDS: NS IV 1000 ML 1,000 ML IV SCH ×2 (04:49→13:05)
[2021-09-27 04:51] LABS: BASOPHILS % (AUTO) 0 % (0-10); EOSINOPHILS # (AUTO) 0.2 10^3/uL (0.0-0.3); EOSINOPHILS % (AUTO) 2 % (0-10); HEMATOCRIT 26 % (35-52); HEMOGLOBIN 7.9 g/dL (11.5-16.0); LYMPHOCYTES # (AUTO) 0.8 10^3/uL (1.0-4.0); LYMPHOCYTES % (AUTO) 9 % (12-44); MEAN CORPUSCULAR HEMOGLOBIN 25 pg (25-34); MEAN CORPUSCULAR HGB CONC 31 g/dL (32-36); MEAN CORPUSCULAR VOLUME 80 fL (80-99); MEAN PLATELET VOLUME 9.8 fL (9.0-12.2); MONOCYTES # (AUTO) 0.7 10^3/uL (0.0-1.0); MONOCYTES % (AUTO) 7 % (0-12); NEUTROPHILS # (AUTO) 7.9 10^3/uL (1.8-7.8); NEUTROPHILS % (AUTO) 81 % (42-75); PLATELET COUNT 350 10^3/uL (130-400); WHITE BLOOD COUNT 9.7 10^3/uL (4.3-11.0)
[2021-09-27 05:01] LABS: ALBUMIN 2.2 GM/DL (3.2-4.5)
[2021-09-27 05:02] LABS: POTASSIUM 3.9 MMOL/L (3.6-5.0)
[2021-09-27 05:03] LABS: CALCIUM 8.1 MG/DL (8.5-10.1)
[2021-09-27 05:04] LABS: TOTAL PROTEIN 4.5 GM/DL (6.4-8.2)
[2021-09-27 05:06] LABS: BILIRUBIN,TOTAL 0.3 MG/DL (0.1-1.0)
[2021-09-27 05:07] LABS: PHOSPHORUS 1.9 MG/DL (2.3-4.7)
[2021-09-27 05:08] LABS: CREATININE SERUM 0.54 MG/DL (0.60-1.30)
[2021-09-27 05:10] LABS: MAGNESIUM 1.8 MG/DL (1.6-2.4)
[2021-09-27] MEDS: POTASSIUM CL 10MEQ/50ML IVPB 50 ML IV SCH (05:14)
[2021-09-27] MEDS: KCL 20 MEQ TAB (K-DUR) PO SCH (05:14)
[2021-09-27] MEDS: MAGNESIUM 1 GM/100 ML IVPB 100 ML IV SCH (05:25)
--- NOTE | 2021-09-27 07:28 | Progress Note - Hospitalist ---
Subjective HPI/CC On Admission Date Seen by Provider: Sep 27, 2021 Time Seen by Provider: 11:45 Chief complaint: Symptomatic anemia History of present illness: This is a 76-year-old white female known to me from prior CVA managed in inpatient rehab who presents to the ER with constipation and weakness found to have severe anemia requiring 1 unit of blood yesterday. Colon mass was noted on CT scan. Patient will undergo scopes. Subjective/Events-last exam Patient sleeps most of the time Labs reviewed Meropenem started due to elevated white count and worsening chest x-ray yesterday Checked meds and labs Review of Systems General: Fatigue, Malaise Objective Exam Vital Signs Vital Signs Date Time Temp Pulse Resp B/P (MAP) Pulse Ox O2 Delivery O2 Flow Rate FiO2 09/27/21 15:39 36.3 105 20 147/69 (95) 100 Nasal Cannula 2.00 09/27/21 10:19 2 Capillary Refill : Less Than 3 Seconds General Appearance: WD/WN, Chronically ill Respiratory: Lungs Clear, Normal Breath Sounds, Decreased Breath Sounds Cardiovascular: Regular Rate, Rhythm Results/Procedures Lab Laboratory Tests 09/27/21 04:37 Patient resulted labs reviewed. Assessment/Plan Assessment and Plan Assess & Plan/Chief Complaint Assessment: Symptomatic anemia hemoglobin 6.8 status post transfusion of 2 units total since admit Colon mass Recent constipation History of CVA with left-sided hemiparesis CAD Former smoker Plan: Cardiology eval Monitor hemoglobin 09/18/2021: Monitor hemoglobin 09/19/2021: Monitor hemoglobin 09/20/2021: Monitor hemoglobin Resection Tuesday09/26/21: Monitor closely 09/28/2019 Needs mcc at discharge Prognosis poor Critical Care Critically Ill Patient Clinical Quality Measures DVT/VTE Risk/Contraindication: Other: MOHIT Kincaid DO Sep 27, 2021 07:28
[2021-09-27] MEDS: morphine INJ 4 MG/ML 1 ML (VIAL/SYRINGE) IV PRN (09:25)
[2021-09-27] MEDS: LORazepam INJ 2 MG/ML (ATIVAN) VIAL IVP PRN (09:26)
[2021-09-27] MEDS: NYSTATIN CREAM (MYCOSTATIN) 30 GM TUBE TP SCH (10:14)
[2021-09-27] MEDS: BISACODYL 5 MG (DULCOLAX) TABLET PO SCH ×2 (10:14→20:17)
[2021-09-27] MEDS: MICONAZOLE 2% POWDER (DESENEX AF) 90 GM TOP SCH ×2 (10:55→20:18)
--- NOTE | 2021-09-27 11:17 | Progress Note - Surgery ---
ROMY GARCIA 09/27/21 1117: Subjective Date Seen by a Provider: Sep 27, 2021 Time Seen by a Provider: 09:13 Subjective/Events-last exam Pt is sleeping in bed and not easily roused. PAMELA drain producing serous fluid, incision is clean and dry. Nursing states that pt is tollerating sips of water with medications and also ice chips. BM was charted yesterday, but nurse in room today says no BM today or noticeable flatus, also states that Pt is weak and requires assistance when standing and that she continues to refuse PT/OT when they come. Nursing did say pt is requesting milk and food and would like NGT removed. Review of Systems General: Malaise, Appetite Gastrointestinal: No: Vomiting, Diarrhea Neurological: Weakness Objective Exam Vital Signs Date Time Temp Pulse Resp B/P (MAP) Pulse Ox O2 Delivery O2 Flow Rate FiO2 09/27/21 10:19 97 Nasal Cannula 2 09/27/21 07:43 36.3 77 18 137/65 (89) 97 Nasal Cannula 2.00 09/27/21 07:35 36.7 74 98 28 09/27/21 07:30 Nasal Cannula 2.00 09/27/21 04:00 36.7 74 16 131/51 (77) 98 Nasal Cannula 2.00 09/27/21 00:00 35.8 74 16 134/68 (90) 97 Nasal Cannula 2.00 09/26/21 20:02 Nasal Cannula 2.00 09/26/21 19:59 37.3 82 18 146/65 (92) 99 Nasal Cannula 2.00 09/26/21 15:34 36.4 82 20 136/65 (88) 98 Room Air 09/26/21 11:44 37.0 89 20 147/85 (105) 96 Room Air I & O 09/27/21 07:00 Intake Total 270 ml Output Total 1490 ml Balance -1220 ml Capillary Refill : Less Than 3 Seconds General Appearance: WD/WN, Chronically ill, Thin, Other (asleep) HEENT: PERRL/EOMI, Other (NGT in place) Neck: Full Range of Motion, Non Tender, Supple Respiratory: Lungs Clear, Normal Breath Sounds Cardiovascular: Regular Rate, Rhythm, No Edema, No Murmur, Normal Peripheral Pulses Peripheral Pulses: 2+ Radial Pulses (R), 2+ Radial Pulses (L) Gastrointestinal: soft, other (wound clean/dry - single drain in place producing serous fluid.) Extremity: Normal Capillary Refill, Normal Range of Motion Skin: Normal Color, Warm/Dry Lymphatic: No Adenopathy (Cervical or axillary) Results Lab Laboratory Tests 09/27/21 04:37: White Blood Count 9.7, Red Blood Count 3.20L, Hemoglobin 7.9L, Hematocrit 26L, Mean Corpuscular Volume 80, Mean Corpuscular Hemoglobin 25, Mean Corpuscular Hemoglobin Concent 31L, Red Cell Distribution Width 18.3H, Platelet Count 350, Mean Platelet Volume 9.8, Immature Granulocyte % (Auto) 0, Neutrophils (%) (Auto) 81H, Lymphocytes (%) (Auto) 9L, Monocytes (%) (Auto) 7, Eosinophils (%) (Auto) 2, Basophils (%) (Auto) 0, Neutrophils # (Auto) 7.9H, Lymphocytes # (Auto) 0.8L, Monocytes # (Auto) 0.7, Eosinophils # (Auto) 0.2, Basophils # ( Auto) 0.0, Immature Granulocyte # (Auto) 0.0, Sodium Level 137, Potassium Level 3.9, Chloride Level 107, Carbon Dioxide Level 19L, Anion Gap 11, Blood Urea Nitrogen 7, Creatinine 0.54L, Estimat Glomerular Filtration Rate 95, BUN/Creatinine Ratio 13, Glucose Level 77, Calcium Level 8.1L, Corrected Calcium 9.5, Phosphorus Level 1.9L, Magnesium Level 1.8, Total Bilirubin 0.3, Aspartate Amino Transf (AST/SGOT) 10, Alanine Aminotransferase (ALT/SGPT) 8, Alkaline Phosphatase 47, Total Protein 4.5L, Albumin 2.2L Microbiology 09/22/21 MRSA Screen - Final, Complete MRSA not isolated Assessment/Plan Assessment/Plan Assessment/Plan Anemia - probably secondary to chronic and some blood loss from surgery WBC has increased - will monitor POD 4 - s/p en-bloc resection sigmoid colon, small bowel and appendix - 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 Encourage IS use and ambulate with assist, DVT prophylaxis while pt not moving. Clinical Quality Measures DVT/VTE Risk/Contraindication: Other: CASEY Dill DO 09/27/21 1411: Subjective Time Seen by a Provider: 13:33 Subjective/Events-last exam Pt seen and examined, sitting up in bed and eating ice chips. Her son is in room and is asking about BMs and PO intake. Review of Systems General: Malaise Cardiovascular: No: Chest Pain, Palpitations Gastrointestinal: Abdominal Pain (very minimal); No: Vomiting, Diarrhea Neurological: Weakness Objective Exam General Appearance: Chronically ill, Thin HEENT: PERRL/EOMI, Other (NGT in place) Respiratory: Lungs Clear, Normal Breath Sounds, No Accessory Muscle Use, No Respiratory Distress Cardiovascular: Regular Rate, Rhythm, No Murmur Gastrointestinal: non tender, soft, other (wound clean/dry - single drain in place producing serous fluid.) Assessment/Plan Assessment/Plan Assessment/Plan Anemia - probably secondary to chronic and some blood loss from surgery WBC has increased - will monitor POD 4 - s/p en-bloc resection sigmoid colon, small bowel and appendix - 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 Encourage IS use. I spoke to son about the importance of ambulation, intestines won't move if pt isn't moving. Has to work with PT/O and son said he would come in to help facilitate that. DVT prophylaxis while pt not moving. Supervisory-Addendum Brief Verification & Attestation Participated in pt care: history, MDM, physical Personally performed: exam, history, MDM, supervision of care Care discussed with: Medical Student Procedures: n/a Verification and Attestation of Medical Student E/M Service A medical student performed and documented this service. I then reviewed and verified all information documented by the medical student and made modifications to such information, when appropriate. I personally performed a physical exam, medical decision making and then discussed any differences between the notes and made revisions as necessary to create one note. Casey Dutton , 09/27/21 , 14:11 ROMY GARCIA Sep 27, 2021 11:17 CASEY DUTTON DO Sep 27, 2021 14:11
--- NOTE | 2021-09-27 13:22 | Progress Note - Cardiology ---
Cardiology SOAP Progress Note Subjective: Somnolent and verbally nonresponsive Does not report symptoms Objective: I&O/Vital Signs 09/27/21 09/27/21 09/27/21 09/27/21 04:00 07:30 07:35 07:43 Temp 36.7 36.7 36.3 Pulse 74 74 77 Resp 16 18 B/P (MAP) 131/51 (77) 137/65 (89) Pulse Ox 98 98 97 O2 Delivery Nasal Cannula Nasal Cannula Nasal Cannula O2 Flow Rate 2.00 2.00 2.00 FiO2 28 09/27/21 09/27/21 10:19 11:38 Temp 36.5 Pulse 85 Resp 20 B/P (MAP) 138/62 (87) Pulse Ox 97 100 O2 Delivery Nasal Cannula Nasal Cannula O2 Flow Rate 2.00 FiO2 2 09/27/21 00:00 Intake Total 20 ml Output Total 890 ml Balance -870 ml Weight (Pounds): 160 Weight (Ounces): 0.0 Weight (Calculated Kilograms): [id number] Constitutional: well-developed, other (thin-appearing, somnolent) Respiratory: No accessory muscle use; other (good, bilateral air entry) Cardiovascular: regular rate-rhythm, systolic murmur (soft BARRETT at card base) Gastrointestional: No tender; soft; No guarding, No rebound; audible bowel sounds Extremities: No clubbing, No cyanosis, No significant edema Neurologic/Psychiatric: other (moves all limbs equally) Skin: No rash on exposed areas, No ulcerations on exposed areas Results/Procedures: Labs Laboratory Tests 09/27/21 04:37: White Blood Count 9.7, Red Blood Count 3.20L, Hemoglobin 7.9L, Hematocrit 26L, Mean Corpuscular Volume 80, Mean Corpuscular Hemoglobin 25, Mean Corpuscular Hemoglobin Concent 31L, Red Cell Distribution Width 18.3H, Platelet Count 350, Mean Platelet Volume 9.8, Immature Granulocyte % (Auto) 0, Neutrophils (%) (Auto) 81H, Lymphocytes (%) (Auto) 9L, Monocytes (%) (Auto) 7, Eosinophils (%) (Auto) 2, Basophils (%) (Auto) 0, Neutrophils # (Auto) 7.9H, Lymphocytes # (Auto) 0.8L, Monocytes # (Auto) 0.7, Eosinophils # (Auto) 0.2, Basophils # (Auto) 0.0, Immature Granulocyte # (Auto) 0.0, Sodium Level 137, Potassium Level 3.9, Chloride Level 107, Carbon Dioxide Level 19L, Anion Gap 11, Blood Urea Nitrogen 7, Creatinine 0.54L, Estimat Glomerular Filtration Rate 95, BUN/Creatinine Ratio 13, Glucose Level 77, Calcium Level 8.1L, Corrected Calcium 9.5, Phosphorus Level 1.9L, Magnesium Level 1.8, Total Bilirubin 0.3, Aspartate Amino Transf (AST/SGOT) 10, Alanine Aminotransferase (ALT/SGPT) 8, Alkaline Phosphatase 47, Total Protein 4.5L, Albumin 2.2L Microbiology 09/22/21 MRSA Screen - Final, Complete MRSA not isolated Laboratory Tests 09/26/21 05:38 09/27/21 04:37 A/P: Assessment: Colon cancer - Status post sigmoid colon resection, appendectomy and small bowel resection by Dr. 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 No arrhythmia has been detected so far. Monitored by Dr Newby Hypertension, controlled Hyperlipidemia History of breast cancer. In remission Former smoker Plan: Complex management due to multiple comorbidities (see above) Monitor labs PAYAM MELENDEZ MD FACP [facility] Sep 27, 2021 13:22
[2021-09-27] MEDS: MELATONIN 3 MG TABLET PO PRN (20:17)
[2021-09-27] MEDS: ENOXAPARIN 40 MG/0.4 ML (LOVENOX) SYR SC SCH (20:18)
[2021-09-28] VITALS: BP 141/63
[2021-09-28] MEDS: MEROPENEM 500 MG/NS 100 ML IVPB IV SCH ×8 (01:31→23:50)
[2021-09-28] MEDS: NS IV 1000 ML 1,000 ML IV SCH ×2 (03:51→23:50)
[2021-09-28 04:00] VITALS: BP 146/68
[2021-09-28 05:58] LABS: POTASSIUM 3.9 MMOL/L (3.6-5.0)
[2021-09-28 05:59] LABS: PHOSPHORUS 1.7 MG/DL (2.3-4.7)
[2021-09-28] MEDS: KCL 20 MEQ TAB (K-DUR) PO SCH (05:59)
[2021-09-28] MEDS: POTASSIUM CL 10MEQ/50ML IVPB 50 ML IV SCH (05:59)
[2021-09-28] MEDS: MAGNESIUM 1 GM/100 ML IVPB 100 ML IV SCH ×3 (06:00→09:34)
[2021-09-28 06:01] LABS: MAGNESIUM 1.6 MG/DL (1.6-2.4)
[2021-09-28 07:01] LABS: ALBUMIN 2.2 GM/DL (3.2-4.5); POTASSIUM 3.9 MMOL/L (3.6-5.0)
[2021-09-28 07:02] LABS: CALCIUM 8.3 MG/DL (8.5-10.1)
[2021-09-28 07:03] LABS: TOTAL PROTEIN 4.3 GM/DL (6.4-8.2)
[2021-09-28 07:05] LABS: BILIRUBIN,TOTAL 0.2 MG/DL (0.1-1.0)
[2021-09-28 07:07] LABS: CREATININE SERUM 0.48 MG/DL (0.60-1.30)
[2021-09-28 07:09] LABS: BASOPHILS % (AUTO) 0 % (0-10); EOSINOPHILS # (AUTO) 0.3 10^3/uL (0.0-0.3); EOSINOPHILS % (AUTO) 4 % (0-10); HEMATOCRIT 24 % (35-52); HEMOGLOBIN 7.5 g/dL (11.5-16.0); LYMPHOCYTES # (AUTO) 1.1 10^3/uL (1.0-4.0); LYMPHOCYTES % (AUTO) 14 % (12-44); MEAN CORPUSCULAR HEMOGLOBIN 24 pg (25-34); MEAN CORPUSCULAR HGB CONC 31 g/dL (32-36); MEAN CORPUSCULAR VOLUME 79 fL (80-99); MEAN PLATELET VOLUME 9.8 fL (9.0-12.2); MONOCYTES # (AUTO) 0.6 10^3/uL (0.0-1.0); MONOCYTES % (AUTO) 8 % (0-12); NEUTROPHILS # (AUTO) 5.8 10^3/uL (1.8-7.8); NEUTROPHILS % (AUTO) 74 % (42-75); PLATELET COUNT 372 10^3/uL (130-400); WHITE BLOOD COUNT 7.8 10^3/uL (4.3-11.0)
[2021-09-28 07:19] VITALS: BP 143/73
--- NOTE | 2021-09-28 09:29 | Cardiology Progress Note ---
Subjective Date Seen by Provider: Sep 28, 2021 Time Seen by Provider: 09:26 Subjective/Events-last exam Patient was seen at bedside, sitting comfortably, reported that she has been passing gas. Review of Systems General: No Chills, No Night Sweats; Fatigue; No Malaise, No Appetite, No Other HEENT: No Head Aches, No Visual Changes, No Eye Pain, No Ear Pain, No Dysphas ia, No Sinus Congestion, No Post Nasal Drip, No Sore Throat, No Other Pulmonary: No Dyspnea, No Cough, No Pleuritic Chest Pain, No Other Cardiovascular: No: Chest Pain, Palpitations, Orthopnea, Paroxysmal Noc. Dyspnea, Edema, Lt Headedness, Other Objective-Cardiology Exam Last Set of Vital Signs Vital Signs 09/27/21 09/28/21 10:19 07:19 Temp 36.5 Pulse 88 Resp 18 B/P (MAP) 143/73 (96) Pulse Ox 97 O2 Delivery Nasal Cannula O2 Flow Rate 2.00 FiO2 2 I&O Intake and Output 09/28/21 00:00 Intake Total 1750 ml Output Total 1500 ml Balance 250 ml Intake Oral 550 ml IV Total 1200 ml Output Urine Total 1075 ml Gastric Drainage Total 100 ml Drainage Total 325 ml General: Alert, No Acute Distress HEENT: Atraumatic, PERRLA Neck: Supple, No JVD, No Thyromegaly Lungs: Clear to Auscultation, Normal Air Movement Heart: Regular Rate, Normal S1, Normal S2, No Murmurs Abdomen: Normal Bowel Sounds, Other (NG in place with dark drainage, surgical drain with mostly serous drainage in bulb) Extremities: No Edema Skin: No Rashes, No Breakdown, No Significant Lesion Neuro: Normal Speech Psych/Mental Status: Mental Status NL, Mood NL Results Lab Laboratory Tests 09/28/21 05:30 09/28/21 07:00 A/P-Cardiology Admission Diagnosis Colon mass Anemia Cryptogenic CVA HTN Assessment/Plan Colon cancer Status post sigmoid colon resection, appendectomy and small bowel resection. Managed by Dr. Rivero Improving slowly. No new complaint. Gastritis, H. pylori positive, managed by surgical team Anxiety, better today, managed by medical team Anemia, GI bleed secondary to colon mass. Status post blood transfusion, hemoglobin 7.5 on September 28, 2021. 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 No arrhythmia has been detected so far. Hypertension, controlled, continue to monitor. Hyperlipidemia, continue to monitor. History of breast cancer. In remission History of Tobaccoism. DOROTHY RIVERA MD Sep 28, 2021 09:29
[2021-09-28] MEDS: MICONAZOLE 2% POWDER (DESENEX AF) 90 GM TOP SCH ×2 (09:35→20:02)
[2021-09-28] MEDS: BISACODYL 5 MG (DULCOLAX) TABLET PO SCH ×2 (09:44→20:01)
--- NOTE | 2021-09-28 09:55 | Physical Therapy Daily Note ---
PT Daily Note-Current Subjective Patient reports she is feeling better today. Agrees to PT. Patient is nonambulatory PLOF and is w/c bound. Mental Status Patient Orientation: Person, Time, Situation Attachments: NG Tube, Lane Catheter, IV Transfers SCALE: Activities may be completed with or without assistive devices. 8-Tabwrnzyza-ajttjkb completes the activity by him/herself with no assistance from a helper. 5-Set-up or Clean-up Assistance-helper sets up or cleans up; patient completes activity. [place] assists only prior to or following the activity. 4-Supervision or Touching Assistance-helper provides verbal cues and/or touchin g/steadying and/or contact guard assistance as patient completes activity. Assistance may be provided throughout the activity or intermittently. 3-Partial/Moderate Assistance-helper does LESS THAN HALF the effort. [place] lifts, holds or supports trunk or limbs, but provides less than half the effort. 2-Substantial/Maximal Assistance-helper does MORE THAN HALF the effort. [place] lifts or holds trunk or limbs and provides more than half the effort. 7-Skaimkjrg-jcptab does ALL the effort. Patient does none of the effort to complete the activity. Or, the assistance of 2 or more helpers is required for the patient to complete the activity. If activity was not attempted, code reason: 7-Patient Refused. 9-Not Applicable-not attempted and the patient did not perform the activity before the current illness, exacerbation or injury. 10-Not Attempted due to Environmental Limitations-(lack of equipment, weather restraints, etc.). 88-Not Attempted due to Medical Conditions or Safety Concerns. Lying to Sitting/Side of Bed(Q: 2 Sit to Stand (QC): 1 Chair/Emp-uv-Kfjml Xfer(QC): 1 dependent with all sit to stand and SPT bed to recliner Exercises Seated Therapy Exercises: Ankle pumps, Long arc quads, Hip flexion Seated Reps: 12 (AAROM) Assessment Patient up in recliner with chair alarm activated. Patient tolerates minimal activity and is dependent with all sit to stand and SPT transfers. PT Timing Machine Operator Goals Assisted Goals PT Assisted Goals Time Frame: Oct 03, 2021 Roll Left & Right (QC): 3 Sit to Lying (QC): 3 Lying-Sitting on Side/Bed(QC): 3 Sit to Stand (QC): 3 Chair/Cqk-iq-Rpadz Xfer(QC): 3 Toilet Transfer (QC): 3 Does the Patient Walk: No and Walking Goal NOT indicated PT Plan Treatment/Plan Treatment Plan: Continue Plan of Care Treatment Plan: Bed Mobility, Education, Functional Activity Helene, Functional Strength, Gait, Safety, Therapeutic Exercise, Transfers Treatment Duration: Oct 03, 2021 Frequency: 6 times per week Estimated Hrs Per Day: .25 hour per day Time/GCodes Time In: 847 Time Out: 857 Total Billed Treatment Time: 10 Total Billed Treatment 1 visit FA 10 min AMBIKA CHEEMA PT Sep 28, 2021 09:55
--- NOTE | 2021-09-28 10:12 | Progress Note - Hospitalist ---
Subjective HPI/CC On Admission Date Seen by Provider: Sep 28, 2021 Time Seen by Provider: 10:00 Chief complaint: Symptomatic anemia History of present illness: This is a 76-year-old white female known to me from prior CVA managed in inpatient rehab who presents to the ER with constipation and weakness found to have severe anemia requiring 1 unit of blood yesterday. Colon mass was noted on CT scan. Patient will undergo scopes. Subjective/Events-last exam Pt able to eat a clear liquid diet now NG tube is still in place Son wants her to go to Inpatient Rehab but she cannot manage for 3 hours so she will need to go to [facility] where she was before after she left Inpatient Rehab with us after her stroke Review of Systems General: Fatigue, Malaise Gastrointestinal: Abdominal Pain Objective Exam Vital Signs Vital Signs Date Time Temp Pulse Resp B/P (MAP) Pulse Ox O2 Delivery O2 Flow Rate FiO2 09/29/21 00:03 36.8 95 18 156/78 (104) 93 Room Air 09/28/21 21:00 09/27/21 10:19 2 Capillary Refill : Less Than 3 Seconds General Appearance: No Apparent Distress, WD/WN, Chronically ill, Thin Respiratory: Lungs Clear, Normal Breath Sounds Cardiovascular: Regular Rate, Rhythm Neurologic/Psychiatric: Alert, Oriented x3 Results/Procedures Lab Laboratory Tests 09/28/21 05:30 09/28/21 07:00 Patient resulted labs reviewed. Assessment/Plan Assessment and Plan Assess & Plan/Chief Complaint Assessment: Symptomatic anemia hemoglobin 6.8 status post transfusion of 2 units total since admit Colon mass Recent constipation History of CVA with left-sided hemiparesis CAD Former smoker Plan: Cardiology eval Monitor hemoglobin 09/18/2021: Monitor hemoglobin 09/19/2021: Monitor hemoglobin 09/20/2021: Monitor hemoglobin Resection Tuesday09/26/21: Monitor closely 09/28/2019 Needs retirement at discharge Prognosis poor 09/28/2021: Needs retirement at discharge Critical Care Critically Ill Patient Clinical Quality Measures DVT/VTE Risk/Contraindication: Other: MOHIT Kincaid DO Sep 28, 2021 10:12
--- NOTE | 2021-09-28 10:24 | Occupational Ther Daily Note ---
OT Current Status-Daily Note Subjective Pt alert, sitting in recliner. Pt agrees to therapy. Pt requested pain pill, reported to nrsg. Mental Status/Objective Patient Orientation: Person, Place, Time, Situation ADL-Treatment Pt agrees to sponge bath. Pt able to bathe all areas except [place] area and buttocks. Pt able to doff/don socks by self after set up. After session, pt sitting in recliner with call light/phone in reach. Nrsg in room. All needs met in room. Therapy Code Descriptions/Definitions Functional [place] Measure: 0=Not Assessed/NA 4=Minimal Assistance 1=Total Assistance 5=Supervision or Setup 2=Maximal Assistance 6=Modified [place] 3=Moderate Assistance 7=Complete IndependenceSCALE: Activities may be completed with or without assistive devices. 4-Rwifdllott-syvmmpa completes the activity by him/herself with no assistance from a helper. 5-Set-up or Clean-up Assistance-helper sets up or cleans up; patient completes activity. [place] assists only prior to or following the activity. 4-Supervision or Touching Assistance-helper provides verbal cues and/or touching/steadying and/or contact guard assistance as patient completes activity. Assistance may be provided throughout the activity or intermittently. 3-Partial/Moderate Assistance-helper does LESS THAN HALF the effort. [place] lifts, holds or supports trunk or limbs, but provides less than half the effort. 2-Substantial/Maximal Assistance-helper does MORE THAN HALF the effort. [place] lifts or holds trunk or limbs and provides more than half the effort. 3-Hihzrqhoo-hcylry does ALL the effort. Patient does none of the effort to complete the activity. Or, the assistance of 2 or more helpers is required for the patient to complete the activity. If activity was not attempted, code reason: 7-Patient Refused. 9-Not Applicable-not attempted and the patient did not perform the activity before the current illness, exacerbation or injury. 10-Not Attempted due to Environmental Limitations-(lack of equipment, weather restraints, etc.). 88-Not Attempted due to Medical Conditions or Safety Concerns. OT Senior Living Goals Senior Living Goals Time Frame: Oct 16, 2021 Eating (QC): 4 Oral Hygiene (QC): 4 Toileting Hygiene (QC): 3 Shower/Bathe Self (QC): 3 Upper Body Dressing (QC): 3 Lower Body Dressing (QC): 3 On/Off Footwear (QC): 3 1=Demonstrate adherence to instructed precautions during ADL tasks. 2=Patient will verbalize/demonstrate understanding of assistive devices/modifications for ADL. 3=Patient will improve strength/tolerance for activity to enable patient to perform ADL's. OT Education/Plan Problem List/Assessment Assessment: Decreased Activ Tolerance, Impaired Self-Care Skills Discharge Recommendations Plan/Recommendations: Continue POC Treatment Plan/Plan of Care Patient would benefit from OT for education, treatment and training to promote independence in ADL's, mobility, safety and/or upper extremity function for ADL's. Plan of Care: ADL Retraining, Functional Mobility, Group Exercise/Act as Ind, UE Funct Exercise/Act, W/C Management Training Treatment Duration: Oct 16, 2021 Frequency: 3 times per week (3-5x/week) Estimated Hrs Per Day: .25 hour per day Agreement: Yes Rehab Potential: Guarded Time/GCodes Start Time: 09:15 Stop Time: 09:40 Total Time Billed (hr/min): 25 Billed Treatment Time 1 visit-ADL 2 (25 min) ED SQUIRES Sep 28, 2021 10:24
[2021-09-28 11:37] VITALS: BP 141/74
[2021-09-28 15:40] VITALS: BP 133/71
--- NOTE | 2021-09-28 17:20 | Progress Note ---
Subjective Date Seen by a Provider: Sep 28, 2021 Time Seen by a Provider: 17:00 Subjective/Events-last exam doing ok. tolerating clears. having loose BM's. pain controlled. not working with PT. Objective Exam Vital Signs Date Time Temp Pulse Resp B/P (MAP) Pulse Ox O2 Delivery O2 Flow Rate FiO2 09/28/21 15:40 36.6 87 14 133/71 (91) 99 Nasal Cannula 2.00 09/28/21 11:37 36.4 86 18 141/74 (96) 98 Nasal Cannula 2.00 09/28/21 10:54 Nasal Cannula 2.00 09/28/21 09:00 98 Nasal Cannula 3.00 09/28/21 07:19 36.5 88 18 143/73 (96) 97 Nasal Cannula 2.00 09/28/21 04:00 36.3 78 17 146/68 (94) 99 Nasal Cannula 2.00 09/28/21 00:00 35.7 83 18 141/63 (89) 99 Nasal Cannula 2.00 09/27/21 21:36 96 Nasal Cannula 2.00 09/27/21 20:00 36.8 86 20 136/70 (92) 98 Nasal Cannula 2.00 I & O 09/28/21 07:00 Intake Total 1900 ml Output Total 1260 ml Balance 640 ml Capillary Refill : Less Than 3 Seconds General Appearance: No Apparent Distress HEENT: PERRL/EOMI Neck: Full Range of Motion Respiratory: Chest Non Tender, Lungs Clear Cardiovascular: Regular Rate, Rhythm Gastrointestinal: normal bowel sounds, soft Extremity: Normal Capillary Refill Neurologic/Psychiatric: Alert, Oriented x3 Skin: Normal Color Lymphatic: No Adenopathy Results Lab Laboratory Tests 09/28/21 05:30: Sodium Level 137, Potassium Level 3.9, Chloride Level 107, Carbon Dioxide Level 22, Anion Gap 8, Blood Urea Nitrogen 5L, Creatinine 0.48L, Estimat Glomerular Filtration Rate 98, BUN/Creatinine Ratio 10, Glucose Level 89, Calcium Level 8.3L, Corrected Calcium 9.7, Phosphorus Level 1.7L, Magnesium Level 1.6, Total Bilirubin 0.2, Aspartate Amino Transf (AST/SGOT) 14, Alanine Aminotransferase (ALT/SGPT) 7, Alkaline Phosphatase 44, Total Protein 4.3L, Albumin 2.2L 09/28/21 07:00: White Blood Count 7.8, Red Blood Count 3.09L, Hemoglobin 7.5L, Hematocrit 24L, Mean Corpuscular Volume 79L, Mean Corpuscular Hemoglobin 24L, Mean Corpuscular Hemoglobin Concent 31L, Red Cell Distribution Width 18.0H, Platelet Count 372, Mean Platelet Volume 9.8, Immature Granulocyte % (Auto) 0, Neutrophils (%) (Auto) 74, Lymphocytes (%) (Auto) 14, Monocytes (%) (Auto) 8, Eosinophils (%) (Auto) 4, Basophils (%) (Auto) 0, Neutrophils # (Auto) 5.8, Lymphocytes # (Auto) 1.1, Monocytes # (Auto) 0.6, Eosinophils # (Auto) 0.3, Basophils # (Auto) 0.0, Immature Granulocyte # (Auto) 0.0 09/28/21 12:56: Lab Scanned Report Transfusion Reaction Form Microbiology 09/22/21 MRSA Screen - Final, Complete MRSA not isolated Assessment/Plan Assessment/Plan Assess & Plan/Chief Complaint anemia with dark stools and large colonic/small bowel mass s/p en-bloc resection sigmoid colon, small bowel and appendix. reflux eosphagitis with stricture s/p bs and dilatation. descending colonic mass with extensive diverticulosis. having BM's. will advance diet OOB to chair. cont DVT prophylaxis. 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 ca at tip of appendix and no invasion rt colon so no other surgery required. Clinical Quality Measures DVT/VTE Risk/Contraindication: Other: CARSON Hurtado MD Sep 28, 2021 17:20
[2021-09-28 19:20] VITALS: BP 135/64
[2021-09-28] MEDS: ENOXAPARIN 40 MG/0.4 ML (LOVENOX) SYR SC SCH (20:01)
[2021-09-29 00:03] VITALS: BP 156/78
[2021-09-29 06:10] LABS: PHOSPHORUS 1.7 MG/DL (2.3-4.7)
[2021-09-29 06:11] LABS: MAGNESIUM 1.7 MG/DL (1.6-2.4)
--- NOTE | 2021-09-29 06:15 | Progress Note - Hospitalist ---
Subjective HPI/CC On Admission Date Seen by Provider: Sep 29, 2021 Time Seen by Provider: 09:30 Chief complaint: Symptomatic anemia History of present illness: This is a 76-year-old white female known to me from prior CVA managed in inpatient rehab who presents to the ER with constipation and weakness found to have severe anemia requiring 1 unit of blood yesterday. Colon mass was noted on CT scan. Patient will undergo scopes. Subjective/Events-last exam Pt doing okay Advancing diet NG tube removed Will remove Catheter Heplock IV fluid Overall, doing very well Will need to go to a NH when [facility] refuses to admit her for Inpatient Rehab Review of Systems General: Fatigue, Malaise Neurological: Weakness, Incoordination Objective Exam Vital Signs Vital Signs Date Time Temp Pulse Resp B/P (MAP) Pulse Ox O2 Delivery O2 Flow Rate FiO2 09/30/21 04:11 36.7 90 18 126/58 (80) 93 Room Air 09/28/21 21:00 09/27/21 10:19 2 Capillary Refill : Less Than 3 Seconds General Appearance: No Apparent Distress, WD/WN Respiratory: Lungs Clear, Normal Breath Sounds Cardiovascular: Regular Rate, Rhythm Neurologic/Psychiatric: Alert, Oriented x3 Results/Procedures Lab Laboratory Tests 09/29/21 06:20 09/30/21 05:34 Patient resulted labs reviewed. Assessment/Plan Assessment and Plan Assess & Plan/Chief Complaint Assessment: Symptomatic anemia hemoglobin 6.8 status post transfusion of 2 units total since admit Colon mass Recent constipation History of CVA with left-sided hemiparesis CAD Former smoker Plan: Cardiology eval Monitor hemoglobin 09/18/2021: Monitor hemoglobin 09/19/2021: Monitor hemoglobin 09/20/2021: Monitor hemoglobin Resection Tuesday09/26/21: Monitor closely 09/28/2019 Needs longterm at discharge Prognosis poor 09/28/2021: Needs longterm at discharge 09/29/2021: Advance diet Supportive care Critical Care Critically Ill Patient Clinical Quality Measures DVT/VTE Risk/Contraindication: Other: MOHIT Kincaid DO Sep 29, 2021 06:15
[2021-09-29] MEDS: MAGNESIUM 1 GM/100 ML IVPB 100 ML IV SCH ×3 (06:24→08:17)
[2021-09-29 06:27] LABS: BASOPHILS % (AUTO) 0 % (0-10); EOSINOPHILS # (AUTO) 0.2 10^3/uL (0.0-0.3); EOSINOPHILS % (AUTO) 3 % (0-10); HEMATOCRIT 26 % (35-52); HEMOGLOBIN 8.1 g/dL (11.5-16.0); LYMPHOCYTES # (AUTO) 1.2 10^3/uL (1.0-4.0); LYMPHOCYTES % (AUTO) 17 % (12-44); MEAN CORPUSCULAR HEMOGLOBIN 24 pg (25-34); MEAN CORPUSCULAR HGB CONC 31 g/dL (32-36); MEAN CORPUSCULAR VOLUME 79 fL (80-99); MEAN PLATELET VOLUME 9.8 fL (9.0-12.2); MONOCYTES # (AUTO) 0.6 10^3/uL (0.0-1.0); MONOCYTES % (AUTO) 8 % (0-12); NEUTROPHILS % (AUTO) 71 % (42-75); PLATELET COUNT 414 10^3/uL (130-400); WHITE BLOOD COUNT 7.1 10^3/uL (4.3-11.0)
[2021-09-29 06:55] LABS: ALBUMIN 2.2 GM/DL (3.2-4.5); POTASSIUM 3.6 MMOL/L (3.6-5.0)
[2021-09-29 06:57] LABS: TOTAL PROTEIN 4.5 GM/DL (6.4-8.2)
[2021-09-29 06:59] LABS: BILIRUBIN,TOTAL 0.2 MG/DL (0.1-1.0)
[2021-09-29 07:01] LABS: CREATININE SERUM 0.48 MG/DL (0.60-1.30)
[2021-09-29 07:24] VITALS: BP 129/72
[2021-09-29] MEDS: POTASSIUM CL 10MEQ/50ML IVPB 50 ML IV SCH (07:57)
[2021-09-29] MEDS: KCL 20 MEQ TAB (K-DUR) PO SCH (07:59)
[2021-09-29] MEDS ORDERED: KCL 20 MEQ TAB (K-DUR) PO ONE (08:15)
[2021-09-29] MEDS: MEROPENEM 500 MG/NS 100 ML IVPB IV SCH ×6 (08:17→23:03)
[2021-09-29] MEDS: MICONAZOLE 2% POWDER (DESENEX AF) 90 GM TOP SCH ×2 (08:18→19:43)
--- NOTE | 2021-09-29 09:01 | Cardiology Progress Note ---
Subjective Date Seen by Provider: Sep 29, 2021 Time Seen by Provider: 08:59 Subjective/Events-last exam Patient was seen at bedside, sitting comfortably, denied any chest pain. Review of Systems General: No Chills, No Night Sweats; Fatigue; No Malaise, No Appetite, No Other HEENT: No Head Aches, No Visual Changes, No Eye Pain, No Ear Pain, No Dysphasia, No Sinus Congestion, No Post Nasal Drip, No Sore Throat, No Other Pulmonary: No Dyspnea, No Cough, No Pleuritic Chest Pain, No Other Cardiovascular: No: Chest Pain, Palpitations, Orthopnea, Paroxysmal Noc. Dyspnea, Edema, Lt Headedness, Other Objective-Cardiology Exam Last Set of Vital Signs Vital Signs 09/27/21 09/28/21 09/29/21 10:19 15:40 07:24 Temp 36.7 Pulse 103 Resp 18 B/P (MAP) 129/72 (91) Pulse Ox 91 O2 Delivery Room Air O2 Flow Rate 2.00 FiO2 2 I&O Intake and Output 09/29/21 00:00 Intake Total 870 ml Output Total 1225 ml Balance -355 ml Intake Oral 870 ml Output Urine Total 1125 ml Drainage Total 100 ml # Bowel Movements 2 General: Alert, No Acute Distress HEENT: Atraumatic, PERRLA Neck: Supple, No JVD, No Thyromegaly Lungs: Clear to Auscultation, Normal Air Movement Heart: Regular Rate, Normal S1, Normal S2, No Murmurs Abdomen: Other (Diminished bowel sounds) Extremities: No Edema Skin: No Rashes, No Breakdown, No Significant Lesion Neuro: Normal Speech Psych/Mental Status: Mental Status NL, Mood NL Results Lab Laboratory Tests 09/29/21 06:20 A/P-Cardiology Admission Diagnosis Colon mass Anemia Cryptogenic CVA HTN Assessment/Plan Colon cancer Status post sigmoid colon resection, appendectomy and small bowel resection. Managed by Dr. Rivero Improving slowly. No new complaint. Gastritis, H. pylori positive, managed by surgical team Anxiety, better today, managed by medical team Anemia, GI bleed secondary to colon mass. Status post blood transfusion, h emoglobin 8.1 on September 29, 2021. 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 No arrhythmia has been detected so far. Hypertension, controlled, continue to monitor. Hyperlipidemia, continue to monitor. History of breast cancer. In remission History of Tobaccoism. DOROTHY RIVERA MD Sep 29, 2021 09:01
--- NOTE | 2021-09-29 09:09 | Physical Therapy Daily Note ---
PT Daily Note-Current Subjective Patient agrees to PT. C/o of 10/10 abdominal pain with nursing notified. Pain Numeric Pain Scale: 10-Worst Possible Pain Location: Lower Location Body Site: Abdomen Pain Description: Pressure, Sharp Mental Status Patient Orientation: Person, Time, Situation Attachments: Drains, Lane Catheter, IV Transfers SCALE: Activities may be completed with or without assistive devices. 7-Itllatbozi-ayyaldb completes the activity by him/herself with no assistance from a helper. 5-Set-up or Clean-up Assistance-helper sets up or cleans up; patient completes activity. [place] assists only prior to or following the activity. 4-Supervision or Touching Assistance-helper provides verbal cues and/or touching/steadying and/or contact guard assistance as patient completes activity. Assistance may be provided throughout the activity or intermittently. 3-Partial/Moderate Assistance-helper does LESS THAN HALF the effort. [place] lifts, holds or supports trunk or limbs, but provides less than half the effort. 2-Substantial/Maximal Assistance-helper does MORE THAN HALF the effort. [place] lifts or holds trunk or limbs and provides more than half the effort. 3-Uxjzzjytn-zzvkgd does ALL the effort. Patient does none of the effort to complete the activity. Or, the assistance of 2 or more helpers is required for the patient to complete the activity. If activity was not attempted, code reason: 7-Patient Refused. 9-Not Applicable-not attempted and the patient did not perform the activity before the current illness, exacerbation or injury. 10-Not Attempted due to Environmental Limitations-(lack of equipment, weather restraints, etc.). 88-Not Attempted due to Medical Conditions or Safety Concerns. Lying to Sitting/Side of Bed(Q: 3 Sit to Stand (QC): 2 Chair/Kfh-tz-Xuofr Xfer(QC): 2 patient took 3 steps with FWW to recliner and declined to ambulate farther distance Gait Training Distance: 3 steps Gait Assistive Device: FWW max assist Exercises Seated Therapy Exercises: Ankle pumps, Long arc quads, Hip flexion Seated Reps: 15 (2 sets) Assessment Current Status: Poor Progress Patient continues to writhe with all mobility and at rest. Patient up in recliner with needs met. Patient decline to ambulate 10' and is impulsive to sit in recliner. PT Nursing Home Goals Body Former Goals PT Nursing Home Goals Time Frame: Oct 03, 2021 Roll Left & Right (QC): 3 Sit to Lying (QC): 3 Lying-Sitting on Side/Bed(QC): 3 Sit to Stand (QC): 3 Chair/Lsc-wi-Hwkix Xfer(QC): 3 Toilet Transfer (QC): 3 Does the Patient Walk: No and Walking Goal NOT indicated PT Plan Treatment/Plan Treatment Plan: Continue Plan of Care Treatment Plan: Bed Mobility, Education, Functional Activity Helene, Functional Strength, Gait, Safety, Therapeutic Exercise, Transfers Treatment Duration: Oct 03, 2021 Frequency: 6 times per week Estimated Hrs Per Day: .25 hour per day Time/GCodes Time In: 800 Time Out: 816 Total Billed Treatment Time: 16 Total Billed Treatment 1 visit FA 16 min AMBIKA CHEEMA PT Sep 29, 2021 09:09
[2021-09-29] MEDS: BISACODYL 5 MG (DULCOLAX) TABLET PO SCH ×2 (09:51→19:43)
[2021-09-29 11:10] VITALS: BP 134/65
--- NOTE | 2021-09-29 11:11 | Occupational Ther Daily Note ---
OT Current Status-Daily Note Subjective Pt up in recliner, agreeable to OT Tx. Mental Status/Objective Patient Orientation: Person, Place, Situation ADL-Treatment Therapy Code Descriptions/Definitions Functional Power Measure: 0=Not Assessed/NA 4=Minimal Assistance 1=Total Assistance 5=Supervision or Setup 2=Maximal Assistance 6=Modified Power 3=Moderate Assistance 7=Complete IndependenceSCALE: Activities may be completed with or without assistive devices. 2-Rfmjwjhugc-nkanpzp completes the activity by him/herself with no assistance from a helper. 5-Set-up or Clean-up Assistance-helper sets up or cleans up; patient completes activity. [place] assists only prior to or following the activity. 4-Supervision or Touching Assistance-helper provides verbal cues and/or touching/steadying and/or contact guard assistance as patient completes activity. Assistance may be provided throughout the activity or intermittently. 3-Partial/Moderate Assistance-helper does LESS THAN HALF the effort. [place] lifts, holds or supports trunk or limbs, but provides less than half the effort. 2-Substantial/Maximal Assistance-helper does MORE THAN HALF the effort. [place] lifts or holds trunk or limbs and provides more than half the effort. 3-Kmtbbldae-zkagkb does ALL the effort. Patient does none of the effort to complete the activity. Or, the assistance of 2 or more helpers is required for the patient to complete the activity. If activity was not attempted, code reason: 7-Patient Refused. 9-Not Applicable-not attempted and the patient did not perform the activity before the current illness, exacerbation or injury. 10-Not Attempted due to Environmental Limitations-(lack of equipment, weather restraints, etc.). 88-Not Attempted due to Medical Conditions or Safety Concerns. Eating (QC): 5 (set up) Oral Hygiene (QC): 7 Other Treatment Pt up in recliner, states she needs set up assistance with meals in order to cut food/open containers due to decreased coordination LUE from previous CVA. OT handed pt cup from tray table, pt able to hold cup in L hand and use R hand to spoon ice into her mouth. Pt completed x10 reps BUE exercises in order to increase strength and activity tolerance: shoulder flexion, elbow flexion/extension and front punch. Post tx, pt in recliner, call light in reach and all needs met. Education OT Patient Education: Correct positioning, Modified ADL techniques, Progress toward Goal/Update tx plan, Purpose of tx/functional activities, Rehab process Teaching Recipient: Patient Teaching Methods: Discussion Response to Teaching: Verbalize Understanding, Reinforcement Needed OT Penitent[facility] Goals Penitentiary Goals Time Frame: Oct 16, 2021 Eating (QC): 4 Oral Hygiene (QC): 4 Toileting Hygiene (QC): 3 Shower/Bathe Self (QC): 3 Upper Body Dressing (QC): 3 Lower Body Dressing (QC): 3 On/Off Footwear (QC): 3 1=Demonstrate adherence to instructed precautions during ADL tasks. 2=Patient will verbalize/demonstrate understanding of assistive devices/modifications for ADL. 3=Patient will improve strength/tolerance for activity to enable patient to perform ADL's. OT Education/Plan Problem List/Assessment Assessment: Decreased Activ Tolerance, Decreased UE Strength, Impaired Coordination, Impaired Funct Balance, Impaired I ADL's, Impaired Self-Care Skills Discharge Recommendations Plan/Recommendations: Continue POC Treatment Plan/Plan of Care Patient would benefit from OT for education, treatment and training to promote independence in ADL's, mobility, safety and/or upper extremity function for ADL's. Plan of Care: ADL Retraining, Functional Mobility, Group Exercise/Act as Ind, UE Funct Exercise/Act, W/C Management Training Treatment Duration: Oct 16, 2021 Frequency: 3 times per week (3-5x/week) Estimated Hrs Per Day: .25 hour per day Agreement: Yes Rehab Potential: Guarded Time/GCodes Start Time: 10:51 Stop Time: 11:01 Total Time Billed (hr/min): 10 Billed Treatment Time 1, EX JOHN ROSAS OT Sep 29, 2021 11:11
[2021-09-29] MEDS: ALPRAZolam 0.25 MG (XANAX) TAB PO PRN (12:17)
[2021-09-29] MEDS: ONDANSETRON 4 MG/2 ML (SDV) Z0FRAN IV PRN (12:17)
--- NOTE | 2021-09-29 13:54 | Progress Note ---
Subjective Date Seen by a Provider: Sep 29, 2021 Time Seen by a Provider: 12:00 Subjective/Events-last exam doing well. tolerating diet. having BM's. pain controlled. still very weak. Objective Exam Vital Signs Date Time Temp Pulse Resp B/P (MAP) Pulse Ox O2 Delivery O2 Flow Rate FiO2 09/29/21 11:10 36.7 102 18 134/65 (88) 93 Room Air 09/29/21 09:00 Room Air 09/29/21 07:24 36.7 103 18 129/72 (91) 91 Room Air 09/29/21 00:03 36.8 95 18 156/78 (104) 93 Room Air 09/28/21 21:00 Room Air 09/28/21 19:20 36.8 88 16 135/64 (87) 93 Room Air 09/28/21 15:40 36.6 87 14 133/71 (91) 99 Nasal Cannula 2.00 I & O 09/29/21 07:00 Intake Total 720 ml Output Total 1215 ml Balance -495 ml Capillary Refill : Less Than 3 Seconds General Appearance: No Apparent Distress HEENT: PERRL/EOMI Respiratory: Chest Non Tender, Normal Breath Sounds Cardiovascular: Regular Rate, Rhythm Gastrointestinal: normal bowel sounds, soft, tenderness Extremity: Normal Capillary Refill Neurologic/Psychiatric: Alert, Oriented x3 Skin: Normal Color Lymphatic: No Adenopathy Results Lab Laboratory Tests 09/29/21 05:36: Phosphorus Level 1.7L, Magnesium Level 1.7 09/29/21 06:20: White Blood Count 7.1, Red Blood Count 3.35L, Hemoglobin 8.1L, Hematocrit 26L, Mean Corpuscular Volume 79L, Mean Corpuscular Hemoglobin 24L, Mean Corpuscular Hemoglobin Concent 31L, Red Cell Distribution Width 18.3H, Platelet Count 414H, Mean Platelet Volume 9.8, Immature Granulocyte % (Auto) 0, Neutrophils (%) (Auto) 71, Lymphocytes (%) (Auto) 17, Monocytes (%) (Auto) 8, Eosinophils (%) (Auto) 3, Basophils (%) (Auto) 0, Neutrophils # (Auto) 5.0, Lymphocytes # (Auto) 1.2, Monocytes # (Auto) 0.6, Eosinophils # (Auto) 0.2, Basophils # (Auto) 0.0, Immature Granulocyte # (Auto) 0.0, Sodium Level 139, Potassium Level 3.6, Chloride Level 106, Carbon Dioxide Level 24, Anion Gap 9, Blood Urea Nitrogen 4L , Creatinine 0.48L, Estimat Glomerular Filtration Rate 98, BUN/Creatinine Ratio 8, Glucose Level 93, Calcium Level 8.0L, Corrected Calcium 9.4, Total Bilirubin 0.2, Aspartate Amino Transf (AST/SGOT) 16, Alanine Aminotransferase (ALT/SGPT) 8, Alkaline Phosphatase 44, Total Protein 4.5L, Albumin 2.2L Microbiology 09/22/21 MRSA Screen - Final, Complete MRSA not isolated Assessment/Plan Assessment/Plan Assess & Plan/Chief Complaint anemia with dark stools and large colonic/small bowel mass s/p en-bloc resection sigmoid colon, small bowel and appendix. reflux eosphagitis with stricture s/p bs and dilatation. descending colonic mass with extensive diverticulosis. having BM's. will advance diet OOB to chair. cont DVT prophylaxis. 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 ca at tip of appendix and no invasion rt colon so no other surgery required. cont PT/OT. Clinical Quality Measures DVT/VTE Risk/Contraindication: Other: CARSON Hurtado MD Sep 29, 2021 13:54
[2021-09-29 16:21] VITALS: BP 160/79
[2021-09-29] MEDS: fentaNYL INJ 100 MCG/2 ML AMP IVP PRN (16:34)
[2021-09-29] MEDS ORDERED: MILK OF MAGNESIA 400 MG/5 ML 30 ML UDC PO PRN (17:00)
[2021-09-29] MEDS ORDERED: BISACODYL 5 MG (DULCOLAX) TABLET PO PRN (17:00)
[2021-09-29] MEDS ORDERED: LORATADINE (CLARITIN) 10 MG TAB PO PRN (17:00)
[2021-09-29] MEDS: MELATONIN 3 MG TABLET PO PRN (19:42)
[2021-09-29] MEDS: ENOXAPARIN 40 MG/0.4 ML (LOVENOX) SYR SC SCH (19:43)
[2021-09-29 20:25] VITALS: BP 151/88
[2021-09-29 23:06] VITALS: BP 152/68
[2021-09-30 04:11] VITALS: BP 126/58
[2021-09-30] MEDS: ALPRAZolam 0.25 MG (XANAX) TAB PO PRN (05:28)
[2021-09-30] MEDS: MULTIVIT W/MINERALS TAB (THERAGRAN M) PO SCH (05:28)
[2021-09-30 05:44] LABS: BASOPHILS % (AUTO) 1 % (0-10); EOSINOPHILS # (AUTO) 0.2 10^3/uL (0.0-0.3); EOSINOPHILS % (AUTO) 3 % (0-10); HEMATOCRIT 25 % (35-52); HEMOGLOBIN 7.7 g/dL (11.5-16.0); LYMPHOCYTES # (AUTO) 1.4 10^3/uL (1.0-4.0); LYMPHOCYTES % (AUTO) 21 % (12-44); MEAN CORPUSCULAR HEMOGLOBIN 24 pg (25-34); MEAN CORPUSCULAR HGB CONC 31 g/dL (32-36); MEAN CORPUSCULAR VOLUME 78 fL (80-99); MEAN PLATELET VOLUME 9.4 fL (9.0-12.2); MONOCYTES # (AUTO) 0.6 10^3/uL (0.0-1.0); MONOCYTES % (AUTO) 9 % (0-12); NEUTROPHILS # (AUTO) 4.5 10^3/uL (1.8-7.8); NEUTROPHILS % (AUTO) 67 % (42-75); PLATELET COUNT 414 10^3/uL (130-400); WHITE BLOOD COUNT 6.6 10^3/uL (4.3-11.0)
[2021-09-30 05:55] LABS: ALBUMIN 2.2 GM/DL (3.2-4.5); CHLORIDE 106 MMOL/L (98-107); POTASSIUM 3.7 MMOL/L (3.6-5.0); SODIUM 139 MMOL/L (135-145)
[2021-09-30 05:57] LABS: CALCIUM 8.1 MG/DL (8.5-10.1)
[2021-09-30 05:58] LABS: GLUCOSE 102 MG/DL (70-105); TOTAL PROTEIN 4.4 GM/DL (6.4-8.2)
[2021-09-30 05:59] LABS: BILIRUBIN,TOTAL 0.2 MG/DL (0.1-1.0); CARBON DIOXIDE 25 MMOL/L (21-32)
[2021-09-30 06:01] LABS: ALKALINE PHOSPHATASE 45 U/L (40-136); CREATININE SERUM 0.52 MG/DL (0.60-1.30); GFR ESTIMATED 96
[2021-09-30 06:02] LABS: BUN/CREATININE RATIO 8
[2021-09-30 06:04] LABS: ALANINE AMINOTRANSFERASE < 6 U/L (0-55)
[2021-09-30] MEDS: KCL 20 MEQ TAB (K-DUR) PO SCH (06:14)
[2021-09-30] MEDS: POTASSIUM CL 10MEQ/50ML IVPB 50 ML IV SCH (06:14)
[2021-09-30] MEDS: MAGNESIUM 1 GM/100 ML IVPB 100 ML IV SCH (06:14)
[2021-09-30 08:10] VITALS: BP 148/78
[2021-09-30] MEDS: CALCIUM CARBONATE 600 MG (CALCARB) TAB PO SCH (08:22)
[2021-09-30] MEDS: DOCUSATE SODIUM 100 MG (COLACE) CAP PO SCH (08:22)
[2021-09-30] MEDS: MEROPENEM 500 MG/NS 100 ML IVPB IV SCH ×4 (08:22→16:51)
[2021-09-30] MEDS: BISACODYL 5 MG (DULCOLAX) TABLET PO SCH ×2 (08:22→20:42)
[2021-09-30] MEDS: CYANOCOBALAMIN 1,000 MCG (VITAMIN B-12) TABLET PO SCH (08:22)
[2021-09-30] MEDS: MICONAZOLE 2% POWDER (DESENEX AF) 90 GM TOP SCH ×2 (08:23→20:44)
--- NOTE | 2021-09-30 08:58 | Cardiology Progress Note ---
Subjective Date Seen by Provider: Sep 30, 2021 Time Seen by Provider: 08:20 Subjective/Events-last exam Patient resting comfortably in bed eating breakfast. Diet advanced by Dr. Rivero yesterday. Patient working with PT/OT. Awaiting confirmation from [facility] to be transferred to their inpatient rehab. Hemoglobin 7.7 today down slightly from 8.1 yesterday. Patient blood pressure slightly elevated 148/78. BP was elevated yesterday evening too 151/88. Not currently taking any BP meds. Patient denies chest pain, palpitations, shortness of breath, dizziness, headache, N/V. Review of Systems HEENT: No Head Aches, No Sore Throat Pulmonary: No Dyspnea, No Pleuritic Chest Pain Cardiovascular: No: Chest Pain, Palpitations, Orthopnea, Lt Headedness Gastrointestinal: Diarrhea; No: Nausea, Vomiting, Abdominal Pain Objective-Cardiology Exam Last Set of Vital Signs Vital Signs 09/27/21 09/28/21 09/30/21 10:19 15:40 11:24 Temp 36.5 Pulse 93 Resp 18 B/P (MAP) 131/70 (90) Pulse Ox 91 O2 Delivery Room Air O2 Flow Rate 2.00 FiO2 2 I&O Intake and Output 09/30/21 00:00 Intake Total 1290 ml Output Total 730 ml Balance 560 ml Intake Oral 1290 ml Output Urine Total 450 ml Drainage Total 280 ml # Voids 2 General: Alert, No Acute Distress HEENT: Atraumatic, PERRLA Neck: Supple, No JVD, No Thyromegaly Lungs: Clear to Auscultation, Normal Air Movement Heart: Regular Rate, Normal S1, Normal S2, No Murmurs Abdomen: Other (Diminished bowel sounds) Extremities: No Cyanosis, No Edema Skin: No Rashes, No Breakdown, No Significant Lesion Neuro: Normal Speech Psych/Mental Status: Mental Status NL, Mood NL Results Lab Laboratory Tests 09/30/21 05:34 A/P-Cardiology Admission Diagnosis Colon mass Anemia Cryptogenic CVA HTN Assessment/Plan 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 Managed by Dr. Rivero Status post sigmoid colon resection, appendectomy and small bowel resection. Managed by Dr. Rivero Improving slowly. No new complaint. Gastritis, H. pylori positive, managed by surgical team Anxiety, improved, managed by medical team Anemia, GI bleed secondary to colon mass. Status post blood transfusion, hemoglobin 7.7 on September 30, 2021. Continue to monitor. 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 No arrhythmia has been detected so far. Hypertension, controlled, occasional breakthrough elevations, consider starting low dose Acei/ARB, continue to monitor. Hyperlipidemia, continue to monitor. History of breast cancer. In remission History of Tobaccoism. Clinical Quality Measures DVT/VTE Risk/Contraindication: Other: gib Supervisory-Addendum Brief Verification & Attestation Participated in pt care: history, MDM, physical Personally performed: exam, history, MDM, supervision of care Care discussed with: Medical Student Procedures: n/a Results interpretation: Verified all documentation Verification and Attestation of Medical Student E/M Service A medical student performed and documented this service in my presence. I r eviewed and verified all information documented by the medical student and made modifications to such information, when appropriate. I personally performed the physical exam and medical decision making. Patient was seen at bedside laying down comfortably Feeling better Awaiting placement Heart rate and blood pressure are stable Dorothy Newby Sep 30, 2021,13:53 LIONEL PEACE Sep 30, 2021 08:58 DOROTHY NEWBY MD Sep 30, 2021 13:55
[2021-09-30] MEDS ORDERED: NON-FORMULARY MEDICATION 1 EA EA (Cyanocobalamin (Vitamin B-12) (Vitamin B-12) 500 MCG) PO SCH (09:00)
[2021-09-30] MEDS ORDERED: NON-FORMULARY MEDICATION 1 EA EA (Multivit-Min/FA/Lycopene/Lut (Centrum Silver Tablet) 1 E PO SCH (09:00)
--- NOTE | 2021-09-30 10:07 | Occupational Ther Daily Note ---
OT Current Status-Daily Note Subjective Pt alert, lying in bed. Pt agrees to therapy. No c/o pain. Mental Status/Objective Patient Orientation: Person Attachments: IV ADL-Treatment Therapy Code Descriptions/Definitions Functional [place] Measure: 0=Not Assessed/NA 4=Minimal Assistance 1=Total Assistance 5=Supervision or Setup 2=Maximal Assistance 6=Modified [place] 3=Moderate Assistance 7=Complete IndependenceSCALE: Activities may be completed with or without assistive devices. 4-Tyhjunczdf-tstptev completes the activity by him/herself with no assistance from a helper. 5-Set-up or Clean-up Assistance-helper sets up or cleans up; patient completes activity. [place] assists only prior to or following the activity. 4-Supervision or Touching Assistance-helper provides verbal cues and/or touching/steadying and/or contact guard assistance as patient completes activity. Assistance may be provided throughout the activity or intermittently. 3-Partial/Moderate Assistance-helper does LESS THAN HALF the effort. [place] lifts, holds or supports trunk or limbs, but provides less than half the effort. 2-Substantial/Maximal Assistance-helper does MORE THAN HALF the effort. [place] l ifts or holds trunk or limbs and provides more than half the effort. 6-Umkyswois-feeuwe does ALL the effort. Patient does none of the effort to complete the activity. Or, the assistance of 2 or more helpers is required for the patient to complete the activity. If activity was not attempted, code reason: 7-Patient Refused. 9-Not Applicable-not attempted and the patient did not perform the activity before the current illness, exacerbation or injury. 10-Not Attempted due to Environmental Limitations-(lack of equipment, weather restraints, etc.). 88-Not Attempted due to Medical Conditions or Safety Concerns. Other Treatment Pt able to don/doff footwear by self. Then working on sit to stands from bed 3x's for strength and balance. Pt requires verbal and physical cues to stand up without retropulsion. Pt then wanted to use w/c to move around hospital floor. Pt requires min A for propelling/steering w/c due to uncoordinated movements between B UE/LE. After session, pt lying in bed with call light/phone in reach. All needs met in room. OT Wellness Program Coordinator Goals [facility] Goals Time Frame: Oct 16, 2021 Eating (QC): 4 Oral Hygiene (QC): 4 Toileting Hygiene (QC): 3 Shower/Bathe Self (QC): 3 Upper Body Dressing (QC): 3 Lower Body Dressing (QC): 3 On/Off Footwear (QC): 3 1=Demonstrate adherence to instructed precautions during ADL tasks. 2=Patient will verbalize/demonstrate understanding of assistive devices/modifications for ADL. 3=Patient will improve strength/tolerance for activity to enable patient to perform ADL's. OT Education/Plan Problem List/Assessment Assessment: Decreased Activ Tolerance, Impaired Cognition, Impaired Self-Care Skills Discharge Recommendations Plan/Recommendations: Continue POC Treatment Plan/Plan of Care Patient would benefit from OT for education, treatment and training to promote independence in ADL's, mobility, safety and/or upper extremity function for ADL's. Plan of Care: ADL Retraining, Functional Mobility, Group Exercise/Act as Ind, UE Funct Exercise/Act, W/C Management Training Treatment Duration: Oct 16, 2021 Frequency: 3 times per week (3-5x/week) Estimated Hrs Per Day: .25 hour per day Agreement: Yes Rehab Potential: Guarded Time/GCodes Start Time: 09:40 Stop Time: 09:58 Total Time Billed (hr/min): 18 Billed Treatment Time 1 visit-EX 1 (18 min) [facility]ES Sep 30, 2021 10:07
--- NOTE | 2021-09-30 11:11 | Physical Therapy Daily Note ---
PT Daily Note-Current Subjective Pt. in bed ,agrees to Rx. Pt. states she has used w/c for mobility for some time. Pt. agrees to attempt gait and w/c mob and TRFs. c/o pain all over at 7/10 Pain Numeric Pain Scale: 7 Mental Status Patient Orientation: Person, Place Transfers SCALE: Activities may be completed with or without assistive devices. 9-Gyskawtcrn-wdgkmbl completes the activity by him/herself with no assistance from a helper. 5-Set-up or Clean-up Assistance-helper sets up or cleans up; patient completes activity. [place] assists only prior to or following the activity. 4-Supervision or Touching Assistance-helper provides verbal cues and/or touching/steadying and/or contact guard assistance as patient completes activity. Assistance may be provided throughout the activity or intermittently. 3-Partial/Moderate Assistance-helper does LESS THAN HALF the effort. [place] lifts, holds or supports trunk or limbs, but provides less than half the effort. 2-Substantial/Maximal Assistance-helper does MORE THAN HALF the effort. [place] lifts or holds trunk or limbs and provides more than half the effort. 4-Szlaaxklg-vvgxih does ALL the effort. Patient does none of the effort to complete the activity. Or, the assistance of 2 or more helpers is required for the patient to complete the activity. If activity was not attempted, code reason: 7-Patient Refused. 9-Not Applicable-not attempted and the patient did not perform the activity before the current illness, exacerbation or injury. 10-Not Attempted due to Environmental Limitations-(lack of equipment, weather restraints, etc.). 88-Not Attempted due to Medical Conditions or Safety Concerns. Roll Left & Right (QC): 6 Lying to Sitting/Side of Bed(Q: 6 Sit to Stand (QC): 3 Chair/Pgw-ue-Pqyir Xfer(QC): 3 Pt. very athetoid and uncoordinated in movement , very retropulsive to attempt stance, requires min to mod assist to TRF SPT bed to w/c and back Gait Training atempt at gait unsafe Wheelchair Training Does the Pt Use a Wheelchair?: Yes Wheel 50 ft with 2 turns (QC): 4 Type of Wheelchair: Manual pt. struggles to get hands grasped to wheel and feet to get traction on floor, upper body moving for and back to gain momentum, this [employer]CH putting hand over hand on wheels and rungs of wheels to facilitate grasp and motion with more efficiency Exercises Seated Therapy Exercises: Ankle pumps, Sit to stand, Long arc quads, Hip flexion Seated Reps: 10 Treatments TRFs, w/c mob, therex, in w/c after Rx so she could be up about room, plugged in her phone to [facility] etc. call barillas at hand on table Assessment Current Status: Fair Progress PT Senior Living Goals Surgical Aide Goals PT Senior Living Goals Time Frame: Oct 03, 2021 Roll Left & Right (QC): 3 Sit to Lying (QC): 3 Lying-Sitting on Side/Bed(QC): 3 Sit to Stand (QC): 3 Chair/Fos-en-Yocow Xfer(QC): 3 Toilet Transfer (QC): 3 Does the Patient Walk: No and Walking Goal NOT indicated PT Plan Treatment/Plan Treatment Plan: Continue Plan of Care Treatment Plan: Bed Mobility, Education, Functional Activity Helene, Functional Strength, Gait, Safety, Therapeutic Exercise, Transfers Treatment Duration: Oct 03, 2021 Frequency: 6 times per week Estimated Hrs Per Day: .25 hour per day Safety Risks/Education Patient Education: Transfer Techniques, Correct Positioning, W/C Management Teaching Recipient: Patient Teaching Methods: Demonstration, Discussion Response to Teaching: Verbalize Understanding, Return Demonstration, Reinforcement Needed Time/GCodes Time In: 1000 Time Out: 1015 Total Billed Treatment Time: 15 Total Billed Treatment 1,FA15m JORGE [employer]ING [employer]IEF DES[employer] BRANCH Sep 30, 2021 11:11
[2021-09-30 11:24] VITALS: BP 131/70
--- NOTE | 2021-09-30 11:34 | Progress Note - Hospitalist ---
Subjective HPI/CC On Admission Date Seen by Provider: Sep 30, 2021 Time Seen by Provider: 11:00 Chief complaint: Symptomatic anemia History of present illness: This is a 76-year-old white female known to me from prior CVA managed in inpatient rehab who presents to the ER with constipation and weakness found to have severe anemia requiring 1 unit of blood yesterday. Colon mass was noted on CT scan. Patient will undergo scopes. Subjective/Events-last exam Pt doing pretty well Pt is asking for anxiety medication to be increased Labs remain stable [facility] declined her so we will pursue Correction Review of Systems General: Fatigue, Malaise Objective Exam Vital Signs Vital Signs Date Time Temp Pulse Resp B/P (MAP) Pulse Ox O2 Delivery O2 Flow Rate FiO2 10/01/21 04:09 36.8 82 18 125/58 (80) 94 Room Air 09/28/21 21:00 09/27/21 10:19 2 Capillary Refill : Less Than 3 Seconds General Appearance: No Apparent Distress, WD/WN, Chronically ill Respiratory: Lungs Clear, Normal Breath Sounds Cardiovascular: Regular Rate, Rhythm Results/Procedures Lab Laboratory Tests 10/01/21 04:59 Patient resulted labs reviewed. Assessment/Plan Assessment and Plan Assess & Plan/Chief Complaint Assessment: Symptomatic anemia hemoglobin 6.8 status post transfusion of 2 units total since admit Colon mass Recent constipation History of CVA with left-sided hemiparesis CAD Former smoker Plan: Cardiology eval Monitor hemoglobin 09/18/2021: Monitor hemoglobin 09/19/2021: Monitor hemoglobin 09/20/2021: Monitor hemoglobin Resection Tuesday09/26/21: Monitor closely 09/28/2019 Needs long term at discharge Prognosis poor 09/28/2021: Needs long term at discharge 09/29/2021: Advance diet Supportive care 09/30/2021: Increase Xanax Critical Care Critically Ill Patient Clinical Quality Measures DVT/VTE Risk/Contraindication: Other: MOHIT Kincaid DO Sep 30, 2021 11:34
[2021-09-30] MEDS ORDERED: ALPRAZolam 0.25 MG (XANAX) TAB PO PRN (11:45)
--- NOTE | 2021-09-30 13:16 | Progress Note ---
Subjective Date Seen by a Provider: Sep 30, 2021 Time Seen by a Provider: 13:00 Subjective/Events-last exam doing ok. tolerating regular diet and having BM's. pain controlled. minimal PAMELA SS. Objective Exam Vital Signs Date Time Temp Pulse Resp B/P (MAP) Pulse Ox O2 Delivery O2 Flow Rate FiO2 09/30/21 11:24 36.5 93 18 131/70 (90) 91 Room Air 09/30/21 08:34 Room Air 09/30/21 08:10 35.6 91 18 148/78 (101) 93 Room Air 09/30/21 04:11 36.7 90 18 126/58 (80) 93 Room Air 09/29/21 23:06 36.5 89 18 152/68 (96) 91 Room Air 09/29/21 20:25 108 151/88 (109) 09/29/21 19:56 36.2 18 95 Room Air 09/29/21 19:45 Room Air 09/29/21 16:21 35.4 110 18 160/79 (106) 97 Room Air I & O 09/30/21 07:00 Intake Total 1540 ml Output Total 420 ml Balance 1120 ml Capillary Refill : Less Than 3 Seconds General Appearance: No Apparent Distress HEENT: PERRL/EOMI Neck: Full Range of Motion Respiratory: Chest Non Tender, Lungs Clear Cardiovascular: Regular Rate, Rhythm Gastrointestinal: normal bowel sounds, soft, tenderness Extremity: Normal Capillary Refill Neurologic/Psychiatric: Alert, Oriented x3 Skin: Normal Color Lymphatic: No Adenopathy Results Lab Laboratory Tests 09/30/21 05:34: White Blood Count 6.6, Red Blood Count 3.19L, Hemoglobin 7.7L, Hematocrit 25L, Mean Corpuscular Volume 78L, Mean Corpuscular Hemoglobin 24L, Mean Corpuscular Hemoglobin Concent 31L, Red Cell Distribution Width 18.7H, Platelet Count 414H, Mean Platelet Volume 9.4, Immature Granulocyte % (Auto) 1, Neutrophils (%) (Auto) 67, Lymphocytes (%) (Auto) 21, Monocytes (%) (Auto) 9, Eosinophils (%) (Auto) 3, Basophils (%) (Auto) 1, Neutrophils # (Auto) 4.5, Lymphocytes # (Auto) 1.4, Monocytes # (Auto) 0.6, Eosinophils # (Auto) 0.2, Basophils # (Auto) 0.0, Immature Granulocyte # (Auto) 0.0, Sodium Level 139, Potassium Level 3.7, Chloride Level 106, Carbon Dioxide Level 25, Anion Gap 8, Blood Urea Nitrogen 4L , Creatinine 0.52L, Estimat Glomerular Filtration Rate 96, BUN/Creatinine Ratio 8, Glucose Level 102, Calcium Level 8.1L, Corrected Calcium 9.5, Magnesium Level 1.8, Total Bilirubin 0.2, Aspartate Amino Transf (AST/SGOT) 14, Alanine Amino transferase (ALT/SGPT) < 6, Alkaline Phosphatase 45, Total Protein 4.4L, Albumin 2.2L Microbiology 09/22/21 MRSA Screen - Final, Complete MRSA not isolated Assessment/Plan Assessment/Plan Assess & Plan/Chief Complaint anemia with dark stools and large colonic/small bowel mass s/p en-bloc resection sigmoid colon, small bowel and appendix. reflux eosphagitis with stricture s/p bs and dilatation. descending colonic mass with extensive diverticulosis. having BM's. will advance diet OOB to chair. cont DVT prophylaxis. 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 ca at tip of appendix and no invasion rt colon so no other surgery required. cont PT/OT. patient will be going to [facility] in [place] for next destination. Clinical Quality Measures DVT/VTE Risk/Contraindication: Other: CARSON Hurtado MD Sep 30, 2021 13:16
[2021-09-30 15:51] VITALS: BP 127/79
[2021-09-30 20:00] VITALS: BP 143/89
[2021-09-30] MEDS: ENOXAPARIN 40 MG/0.4 ML (LOVENOX) SYR SC SCH (20:43)
[2021-09-30 23:54] VITALS: BP 133/65
[2021-10-01] MEDS: MEROPENEM 500 MG/NS 100 ML IVPB IV SCH ×8 (00:27→23:55)
[2021-10-01 04:09] VITALS: BP 125/58
[2021-10-01 05:05] LABS: BASOPHILS # (AUTO) 0.1 10^3/uL (0.0-0.1); BASOPHILS % (AUTO) 1 % (0-10); EOSINOPHILS # (AUTO) 0.1 10^3/uL (0.0-0.3); EOSINOPHILS % (AUTO) 2 % (0-10); HEMATOCRIT 24 % (35-52); HEMOGLOBIN 7.5 g/dL (11.5-16.0); LYMPHOCYTES # (AUTO) 1.4 10^3/uL (1.0-4.0); LYMPHOCYTES % (AUTO) 23 % (12-44); MEAN CORPUSCULAR HEMOGLOBIN 24 pg (25-34); MEAN CORPUSCULAR HGB CONC 31 g/dL (32-36); MEAN CORPUSCULAR VOLUME 78 fL (80-99); MEAN PLATELET VOLUME 9.7 fL (9.0-12.2); MONOCYTES # (AUTO) 0.4 10^3/uL (0.0-1.0); MONOCYTES % (AUTO) 7 % (0-12); NEUTROPHILS # (AUTO) 4.1 10^3/uL (1.8-7.8); NEUTROPHILS % (AUTO) 67 % (42-75); PLATELET COUNT 439 10^3/uL (130-400); WHITE BLOOD COUNT 6.2 10^3/uL (4.3-11.0)
[2021-10-01 05:37] LABS: ALBUMIN 2.3 GM/DL (3.2-4.5); CHLORIDE 104 MMOL/L (98-107); POTASSIUM 3.7 MMOL/L (3.6-5.0); SODIUM 140 MMOL/L (135-145)
[2021-10-01 05:38] LABS: CALCIUM 8.4 MG/DL (8.5-10.1)
[2021-10-01 05:39] LABS: GLUCOSE 98 MG/DL (70-105)
[2021-10-01 05:40] LABS: TOTAL PROTEIN 4.4 GM/DL (6.4-8.2)
[2021-10-01 05:41] LABS: BILIRUBIN,TOTAL 0.2 MG/DL (0.1-1.0); CARBON DIOXIDE 26 MMOL/L (21-32)
[2021-10-01 05:43] LABS: ALKALINE PHOSPHATASE 43 U/L (40-136); CREATININE SERUM 0.54 MG/DL (0.60-1.30); GFR ESTIMATED 95
[2021-10-01 05:44] LABS: BUN/CREATININE RATIO 6
[2021-10-01 05:46] LABS: ALANINE AMINOTRANSFERASE < 6 U/L (0-55); MAGNESIUM 1.7 MG/DL (1.6-2.4)
[2021-10-01] MEDS: POTASSIUM CL 10MEQ/50ML IVPB 50 ML IV SCH (06:10)
[2021-10-01] MEDS: KCL 20 MEQ TAB (K-DUR) PO SCH (06:10)
--- NOTE | 2021-10-01 06:19 | Progress Note - Hospitalist ---
Subjective HPI/CC On Admission Date Seen by Provider: Oct 01, 2021 Time Seen by Provider: 10:00 Chief complaint: Symptomatic anemia History of present illness: This is a 76-year-old white female known to me from prior CVA managed in inpatient rehab who presents to the ER with constipation and weakness found to have severe anemia requiring 1 unit of blood yesterday. Colon mass was noted on CT scan. Patient will undergo scopes. Subjective/Events-last exam Pt is sleeping currently Walked 20ft today Very weak Looking at [place] for discharge Checked meds and labs Sleeps all the time Review of Systems General: Fatigue, Malaise Objective Exam Vital Signs Vital Signs Date Time Temp Pulse Resp B/P (MAP) Pulse Ox O2 Delivery O2 Flow Rate FiO2 10/02/21 03:58 36.4 69 16 144/74 (97) 96 Room Air 09/28/21 21:00 09/27/21 10:19 2 Capillary Refill : Less Than 3 Seconds General Appearance: No Apparent Distress, WD/WN, Chronically ill Respiratory: Lungs Clear, Normal Breath Sounds Cardiovascular: Regular Rate, Rhythm Results/Procedures Lab Patient resulted labs reviewed. Assessment/Plan Assessment and Plan Assess & Plan/Chief Complaint Assessment: Symptomatic anemia hemoglobin 6.8 status post transfusion of 2 units total since admit Colon mass Recent constipation History of CVA with left-sided hemiparesis CAD Former smoker Plan: Cardiology eval Monitor hemoglobin 09/18/2021: Monitor hemoglobin 09/19/2021: Monitor hemoglobin 09/20/2021: Monitor hemoglobin Resection Tuesday09/26/21: Monitor closely 09/28/2019 Needs custodial at discharge Prognosis poor 09/28/2021: Needs custodial at discharge 09/29/2021: Advance diet Supportive care 09/30/2021: Increase Xanax 10/01/2021: Supportive care half-way placement Critical Care Critically Ill Patient Clinical Quality Measures DVT/VTE Risk/Contraindication: Other: MOHIT Kincaid DO Oct 01, 2021 06:19
[2021-10-01] MEDS: MULTIVIT W/MINERALS TAB (THERAGRAN M) PO SCH (06:51)
[2021-10-01] MEDS: MAGNESIUM 1 GM/100 ML IVPB 100 ML IV SCH ×3 (06:51→06:52)
--- NOTE | 2021-10-01 07:51 | Cardiology Progress Note ---
Subjective Date Seen by Provider: Oct 01, 2021 Time Seen by Provider: 07:25 Subjective/Events-last exam Patient resting comfortably upon entering the room. Doing well. Tolerating diet. Still having BM. Hemoglobin at 7.5 from 7.7 yesterday. Bloop pressure controlled. Tolerating PT/OT. Denies chest pain, shortness of breath, dizziness, palpitations, LUNA. Patient still working on acceptance and transfer to [facility] in [place], [place]. Review of Systems General: No Night Sweats, No Fatigue HEENT: No Head Aches, No Dysphasia Pulmonary: No Dyspnea, No Cough Cardiovascular: No: Chest Pain, Palpitations, Orthopnea, Edema, Lt Headedness Gastrointestinal: No: Nausea, Vomiting, Constipation Objective-Cardiology Exam Last Set of Vital Signs Vital Signs 09/27/21 09/28/21 10/01/21 10:19 15:40 04:09 Temp 36.8 Pulse 82 Resp 18 B/P (MAP) 125/58 (80) Pulse Ox 94 O2 Delivery Room Air O2 Flow Rate 2.00 FiO2 2 I&O Intake and Output 10/01/21 00:00 Intake Total 860 ml Output Total 655 ml Balance 205 ml Intake Oral 760 ml IV Total 100 ml Output Urine Total 520 ml Drainage Total 135 ml # Voids 4 General: Alert, Oriented X3, Cooperative, No Acute Distress HEENT: Atraumatic, PERRLA Neck: Supple, No JVD, No Thyromegaly Lungs: Clear to Auscultation, Normal Air Movement Heart: Regular Rate, Normal S1, Normal S2, No Murmurs Abdomen: Normal Bowel Sounds Extremities: No Cyanosis, No Edema Skin: No Rashes, No Breakdown, No Significant Lesion Neuro: Normal Speech Psych/Mental Status: Mental Status NL, Mood NL Results Lab Laboratory Tests 10/01/21 04:59 A/P-Cardiology Admission Diagnosis Colon mass Anemia Cryptogenic CVA HTN Assessment/Plan 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 Managed by Dr. Rivero Status post sigmoid colon resection, appendectomy and small bowel resection. Managed by Dr. Rivero Improving slowly. No new complaint. Gastritis, H. pylori positive, managed by surgical team Anxiety, improved, managed by medical team Anemia, GI bleed secondary to colon mass. Status post blood transfusion, hemoglobin 7.5 on October 01, 2021. Continue to monitor. 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 No arrhythmia has been detected so far. Hypertension, controlled, continue to monitor. Hyperlipidemia, continue to monitor. History of breast cancer. In remission History of Tobaccoism. Clinical Quality Measures DVT/VTE Risk/Contraindication: Other: gib Supervisory-Addendum Brief Verification & Attestation Participated in pt care: history, MDM, physical Personally performed: exam, history, MDM, supervision of care Care discussed with: Medical Student Procedures: n/a Results interpretation: Verified all documentation Verification and Attestation of Medical Student E/M Service A medical student performed and documented this service in my presence. I reviewed and verified all information documented by the medical student and made modifications to such information, when appropriate. I personally performed the physical exam and medical decision making. Dorothy Newby Oct 01, 2021,08:27 LIONEL PEACE Oct 01, 2021 07:51 DOROTHY NEWBY MD Oct 01, 2021 08:27
[2021-10-01 08:00] VITALS: BP 142/69
[2021-10-01] MEDS: CYANOCOBALAMIN 1,000 MCG (VITAMIN B-12) TABLET PO SCH (09:13)
[2021-10-01] MEDS: CALCIUM CARBONATE 600 MG (CALCARB) TAB PO SCH (09:13)
--- NOTE | 2021-10-01 10:25 | Occupational Ther Daily Note ---
OT Current Status-Daily Note Subjective Pt dozing in bed, woke easily to name. Pt agrees to therapy. No c/o pain. Mental Status/Objective Patient Orientation: Person Attachments: IV ADL-Treatment Pt requests to use BSC. Pt has athetoid jerky movements with B UE's. Pt able to go from supine <--> EOB with SBA for safety. Pt then stood from higher surface with CGA for safety. Pt able to manipulate briefs to use BSC in standing with CGA. Pt able to change briefs after set up and with CGA in standing for safety. Pt completes toileting hygiene and clothing manipulation with CGA. Pt able to don/doff socks by self. After session, pt lying in bed w ith call light/phone in reach. All needs met in room. Safety measures in place. Therapy Code Descriptions/Definitions Functional [place] Measure: 0=Not Assessed/NA 4=Minimal Assistance 1=Total Assistance 5=Supervision or Setup 2=Maximal Assistance 6=Modified [place] 3=Moderate Assistance 7=Complete IndependenceSCALE: Activities may be completed with or without assistive devices. 9-Bvorqsqtos-rwepuyq completes the activity by him/herself with no assistance from a helper. 5-Set-up or Clean-up Assistance-helper sets up or cleans up; patient completes activity. [place] assists only prior to or following the activity. 4-Supervision or Touching Assistance-helper provides verbal cues and/or touching/steadying and/or contact guard assistance as patient completes activity. Assistance may be provided throughout the activity or intermittently. 3-Partial/Moderate Assistance-helper does LESS THAN HALF the effort. [place] lifts, holds or supports trunk or limbs, but provides less than half the effort. 2-Substantial/Maximal Assistance-helper does MORE THAN HALF the effort. [place] lifts or holds trunk or limbs and provides more than half the effort. 5-Oynzztiyj-bhjlkf does ALL the effort. Patient does none of the effort to complete the activity. Or, the assistance of 2 or more helpers is required for the patient to complete the activity. If activity was not attempted, code reason: 7-Patient Refused. 9-Not Applicable-not attempted and the patient did not perform the activity before the current illness, exacerbation or injury. 10-Not Attempted due to Environmental Limitations-(lack of equipment, weather restraints, etc.). 88-Not Attempted due to Medical Conditions or Safety Concerns. Eating (QC): 7 Shower/Bathe Self (QC): 4 Upper Body Dressing (QC): 5 Lower Body Dressing (QC): 4 On/Off Footwear: 5 Toileting Hygiene (QC): 4 Toilet Transfer (QC): 4 OT Custodial Goals Custodial Goals Time Frame: Oct 16, 2021 Eating (QC): 4 Oral Hygiene (QC): 4 Toileting Hygiene (QC): 3 Shower/Bathe Self (QC): 3 Upper Body Dressing (QC): 3 Lower Body Dressing (QC): 3 On/Off Footwear (QC): 3 1=Demonstrate adherence to instructed precautions during ADL tasks. 2=Patient will verbalize/demonstrate understanding of assistive devices/modifications for ADL. 3=Patient will improve strength/tolerance for activity to enable patient to perform ADL's. OT Education/Plan Problem List/Assessment Assessment: Decreased Activ Tolerance, Decreased UE Strength, Impaired Coordination, Impaired Self-Care Skills Discharge Recommendations Plan/Recommendations: Continue POC Treatment Plan/Plan of Care Patient would benefit from OT for education, treatment and training to promote independence in ADL's, mobility, safety and/or upper extremity function for ADL 's. Plan of Care: ADL Retraining, Functional Mobility, Group Exercise/Act as Ind, UE Funct Exercise/Act, W/C Management Training Treatment Duration: Oct 16, 2021 Frequency: 3 times per week (3-5x/week) Estimated Hrs Per Day: .25 hour per day Agreement: Yes Rehab Potential: Guarded Time/GCodes Start Time: 10:02 Stop Time: 10:17 Total Time Billed (hr/min): 15 Billed Treatment Time 1 visit-ADL 1 (15 min) ED SQUIRES Oct 01, 2021 10:25
--- NOTE | 2021-10-01 11:09 | Physical Therapy Daily Note ---
PT Daily Note-Current Subjective Patient more alert today. Agrees to PT. Mental Status Patient Orientation: Person, Time, Situation Transfers SCALE: Activities may be completed with or without assistive devices. 3-Lrvqtsqulk-gmzlsew completes the activity by him/herself with no assistance from a helper. 5-Set-up or Clean-up Assistance-helper sets up or cleans up; patient completes activity. [place] assists only prior to or following the activity. 4-Supervision or Touching Assistance-helper provides verbal cues and/or touching/steadying and/or contact guard assistance as patient completes activity. Assistance may be provided throughout the activity or intermittently. 3-Partial/Moderate Assistance-helper does LESS THAN HALF the effort. [place] lifts, holds or supports trunk or limbs, but provides less than half the effort. 2-Substantial/Maximal Assistance-helper does MORE THAN HALF the effort. [place] lifts or holds trunk or limbs and provides more than half the effort. 4-Skwnzhqcr-szeref does ALL the effort. Patient does none of the effort to complete the activity. Or, the assistance of 2 or more helpers is required for the patient to complete the activity. If activity was not attempted, code reason: 7-Patient Refused. 9-Not Applicable-not attempted and the patient did not perform the activity before the current illness, exacerbation or injury. 10-Not Attempted due to Environmental Limitations-(lack of equipment, weather restraints, etc.). 88-Not Attempted due to Medical Conditions or Safety Concerns. Lying to Sitting/Side of Bed(Q: 3 Sit to Stand (QC): 3 Chair/Egw-rc-Dovfu Xfer(QC): 3 Athetoid movements in sit Gait Training Distance: 20' x 2 Walk 10 feet (QC): 3 Gait Assistive Device: FWW patient demonstrated improved mobility on this date/reciprocal pattern Assessment Patient improved on this date with demonstrating ability to ambulate 20' x 2. Patient more talkative and alert. Up in recliner with needs met. PT Skilled Nursing Goals Skilled Nursing Goals PT Skilled Nursing Goals Time Frame: Oct 03, 2021 Roll Left & Right (QC): 3 Sit to Lying (QC): 3 Lying-Sitting on Side/Bed(QC): 3 Sit to Stand (QC): 3 Chair/Fqq-gf-Wkoct Xfer(QC): 3 Toilet Transfer (QC): 3 Does the Patient Walk: No and Walking Goal NOT indicated PT Plan Treatment/Plan Treatment Plan: Continue Plan of Care Treatment Plan: Bed Mobility, Education, Functional Activity Helene, Functional Strength, Gait, Safety, Therapeutic Exercise, Transfers Treatment Duration: Oct 03, 2021 Frequency: 6 times per week Estimated Hrs Per Day: .25 hour per day Time/GCodes Time In: 1045 Time Out: 1057 Total Billed Treatment Time: 12 Total Billed Treatment 1 visit GT 12 min AMBIKA CHEEMA PT Oct 01, 2021 11:09
[2021-10-01 11:41] VITALS: BP 146/64
[2021-10-01] MEDS: DOCUSATE SODIUM 100 MG (COLACE) CAP PO SCH (11:58)
[2021-10-01] MEDS: BISACODYL 5 MG (DULCOLAX) TABLET PO SCH ×2 (11:59→21:09)
--- NOTE | 2021-10-01 14:49 | Progress Note ---
Subjective Date Seen by a Provider: Oct 01, 2021 Time Seen by a Provider: 14:00 Subjective/Events-last exam doing well. tolerating diet and having BM's. no nasuea/vomiting. Objective Exam Vital Signs Date Time Temp Pulse Resp B/P (MAP) Pulse Ox O2 Delivery O2 Flow Rate FiO2 10/01/21 11:41 37.0 77 16 146/64 (91) 95 Room Air 10/01/21 08:00 Room Air 10/01/21 08:00 37.0 79 18 142/69 (93) 93 Room Air 10/01/21 04:09 36.8 82 18 125/58 (80) 94 Room Air 09/30/21 23:54 36.8 88 18 133/65 (87) 92 Room Air 09/30/21 20:54 Room Air 09/30/21 20:00 35.8 74 18 143/89 (107) 95 Room Air 09/30/21 15:51 36.0 97 18 127/79 (95) 93 Room Air I & O 10/01/21 07:00 Intake Total 710 ml Output Total 665 ml Balance 45 ml Capillary Refill : Less Than 3 Seconds General Appearance: No Apparent Distress HEENT: PERRL/EOMI Neck: Full Range of Motion Respiratory: Chest Non Tender, Lungs Clear, Normal Breath Sounds Cardiovascular: Regular Rate, Rhythm Gastrointestinal: normal bowel sounds, soft, tenderness Extremity: Normal Capillary Refill Neurologic/Psychiatric: Alert, Oriented x3 Skin: Normal Color Lymphatic: No Adenopathy Results Lab Laboratory Tests 10/01/21 04:59: White Blood Count 6.2, Red Blood Count 3.12L, Hemoglobin 7.5L, Hematocrit 24L, Mean Corpuscular Volume 78L, Mean Corpuscular Hemoglobin 24L, Mean Corpuscular Hemoglobin Concent 31L, Red Cell Distribution Width 19.0H, Platelet Count 439H, Mean Platelet Volume 9.7, Immature Granulocyte % (Auto) 1, Neutrophils (%) (Auto) 67, Lymphocytes (%) (Auto) 23, Monocytes (%) (Auto) 7, Eosinophils (%) (Auto) 2, Basophils (%) (Auto) 1, Neutrophils # (Auto) 4.1, Lymphocytes # (Auto) 1.4, Monocytes # (Auto) 0.4, Eosinophils # (Auto) 0.1, Basophils # (Auto) 0.1, Immature Granulocyte # (Auto) 0.0, Sodium Level 140, Potassium Level 3.7, Chloride Level 104, Carbon Dioxide Level 26, Anion Gap 10, Blood Urea Nitrogen 3L, Creatinine 0.54L, Estimat Glomerular Filtration Rate 95, BUN/Creatinine Ratio 6, Glucose Level 98, Calcium Level 8.4L, Corrected Calcium 9.8, Magnesium Level 1.7, Total Bilirubin 0.2, Aspartate Amino Transf (AST/SGOT) 12, Alanine Aminotransferase (ALT/SGPT) < 6, Alkaline Phosphatase 43, Total Protein 4.4L, Albumin 2.3L Microbiology 09/22/21 MRSA Screen - Final, Complete MRSA not isolated Assessment/Plan Assessment/Plan Assess & Plan/Chief Complaint anemia with dark stools and large colonic/small bowel mass s/p en-bloc resection sigmoid colon, small bowel and appendix. reflux eosphagitis with stricture s/p bs and dilatation. descending colonic mass with extensive diverticulosis. having BM's. will advance diet OOB to chair. cont DVT prophylaxis. 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 ca at tip of appendix and no invasion rt colon so no other surgery required. cont PT/OT. patient will be going to [facility] in [place] for next destination. Clinical Quality Measures DVT/VTE Risk/Contraindication: Other: CARSON Hurtado MD Oct 01, 2021 14:48
[2021-10-01 15:49] VITALS: BP 132/77
[2021-10-01] MEDS: ACETAMINOPHEN 325 MG TABLET PO PRN (16:35)
[2021-10-01] MEDS: MICONAZOLE 2% POWDER (DESENEX AF) 90 GM TOP SCH ×2 (16:39→21:09)
[2021-10-01 19:38] VITALS: BP 147/91
[2021-10-01] MEDS: MELATONIN 3 MG TABLET PO PRN (21:09)
[2021-10-01] MEDS: ENOXAPARIN 40 MG/0.4 ML (LOVENOX) SYR SC SCH (21:09)
[2021-10-02] VITALS: BP 134/69
[2021-10-02 03:58] VITALS: BP 144/74
[2021-10-02] MEDS: MULTIVIT W/MINERALS TAB (THERAGRAN M) PO SCH ×2 (05:59→06:16)
[2021-10-02 06:15] LABS: BASOPHILS # (AUTO) 0.1 10^3/uL (0.0-0.1); BASOPHILS % (AUTO) 1 % (0-10); EOSINOPHILS # (AUTO) 0.2 10^3/uL (0.0-0.3); EOSINOPHILS % (AUTO) 3 % (0-10); HEMATOCRIT 25 % (35-52); HEMOGLOBIN 7.7 g/dL (11.5-16.0); LYMPHOCYTES # (AUTO) 1.2 10^3/uL (1.0-4.0); LYMPHOCYTES % (AUTO) 20 % (12-44); MEAN CORPUSCULAR HEMOGLOBIN 24 pg (25-34); MEAN CORPUSCULAR HGB CONC 31 g/dL (32-36); MEAN CORPUSCULAR VOLUME 78 fL (80-99); MEAN PLATELET VOLUME 9.7 fL (9.0-12.2); MONOCYTES # (AUTO) 0.5 10^3/uL (0.0-1.0); MONOCYTES % (AUTO) 9 % (0-12); NEUTROPHILS # (AUTO) 4.1 10^3/uL (1.8-7.8); NEUTROPHILS % (AUTO) 67 % (42-75); PLATELET COUNT 459 10^3/uL (130-400); WHITE BLOOD COUNT 6.2 10^3/uL (4.3-11.0)
[2021-10-02 06:31] LABS: ALBUMIN 2.3 GM/DL (3.2-4.5)
[2021-10-02 06:32] LABS: POTASSIUM 3.5 MMOL/L (3.6-5.0)
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
[2021-10-02 06:33] LABS: CALCIUM 8.1 MG/DL (8.5-10.1)
[2021-10-02 06:34] LABS: TOTAL PROTEIN 4.6 GM/DL (6.4-8.2)
[2021-10-02 06:36] LABS: BILIRUBIN,TOTAL 0.3 MG/DL (0.1-1.0)
[2021-10-02 06:38] LABS: CREATININE SERUM 0.55 MG/DL (0.60-1.30)
[2021-10-02] MEDS: POTASSIUM CL 10MEQ/50ML IVPB 50 ML IV SCH (06:47)
[2021-10-02] MEDS ORDERED: KCL 20 MEQ TAB (K-DUR) PO NR (07:00)
[2021-10-02] MEDS: MAGNESIUM 1 GM/100 ML IVPB 100 ML IV SCH (07:12)
[2021-10-02] MEDS: KCL 20 MEQ TAB (K-DUR) PO SCH (07:13)
[2021-10-02 08:17] VITALS: BP 138/73
[2021-10-02] MEDS: CYANOCOBALAMIN 1,000 MCG (VITAMIN B-12) TABLET PO SCH (08:49)
[2021-10-02] MEDS: CALCIUM CARBONATE 600 MG (CALCARB) TAB PO SCH (08:49)
[2021-10-02] MEDS: DOCUSATE SODIUM 100 MG (COLACE) CAP PO SCH (08:49)
[2021-10-02] MEDS: BISACODYL 5 MG (DULCOLAX) TABLET PO SCH ×2 (08:50→20:27)
[2021-10-02] MEDS: MICONAZOLE 2% POWDER (DESENEX AF) 90 GM TOP SCH ×2 (08:50→20:51)
[2021-10-02] MEDS: MEROPENEM 500 MG/NS 100 ML IVPB IV SCH ×4 (08:50→16:58)
--- NOTE | 2021-10-02 09:18 | Physical Therapy Daily Note ---
PT Daily Note-Current Subjective Patient agrees to PT. Mental Status Patient Orientation: Person, Time, Situation Transfers SCALE: Activities may be completed with or without assistive devices. 4-Akhdylxocf-gfivcdg completes the activity by him/herself with no assistance from a helper. 5-Set-up or Clean-up Assistance-helper sets up or cleans up; patient completes activity. [place] assists only prior to or following the activity. 4-Supervision or Touching Assistance-helper provides verbal cues and/or touching/steadying and/or contact guard assistance as patient completes activity. Assistance may be provided throughout the activity or intermittently. 3-Partial/Moderate Assistance-helper does LESS THAN HALF the effort. [place] lifts, holds or supports trunk or limbs, but provides less than half the effort. 2-Substantial/Maximal Assistance-helper does MORE THAN HALF the effort. [place] lifts or holds trunk or limbs and provides more than half the effort. 8-Fkpjhvfov-rjyjcz does ALL the effort. Patient does none of the effort to c omplete the activity. Or, the assistance of 2 or more helpers is required for the patient to complete the activity. If activity was not attempted, code reason: 7-Patient Refused. 9-Not Applicable-not attempted and the patient did not perform the activity before the current illness, exacerbation or injury. 10-Not Attempted due to Environmental Limitations-(lack of equipment, weather restraints, etc.). 88-Not Attempted due to Medical Conditions or Safety Concerns. Lying to Sitting/Side of Bed(Q: 3 Sit to Stand (QC): 3 Chair/Jmp-jc-Afgsp Xfer(QC): 3 Gait Training Distance: 25' x 2 Walk 10 feet (QC): 3 Gait Assistive Device: FWW slightly unsteady gait sequence with PT correct. Assessment Patient up in recliner with needs met. Continue to address functional strength and mobility. PT Admin Prog Coord Goals Admin Prog Coord Goals PT Correction Goals Time Frame: Oct 03, 2021 Roll Left & Right (QC): 3 Sit to Lying (QC): 3 Lying-Sitting on Side/Bed(QC): 3 Sit to Stand (QC): 3 Chair/Dwt-js-Yfylo Xfer(QC): 3 Toilet Transfer (QC): 3 Does the Patient Walk: No and Walking Goal NOT indicated PT Plan Treatment/Plan Treatment Plan: Continue Plan of Care Treatment Plan: Bed Mobility, Education, Functional Activity Helene, Functional Strength, Gait, Safety, Therapeutic Exercise, Transfers Treatment Duration: Oct 03, 2021 Frequency: 6 times per week Estimated Hrs Per Day: .25 hour per day Time/GCodes Time In: 813 Time Out: 826 Total Billed Treatment Time: 13 Total Billed Treatment 1 visit Gt 13 min AMBIKA CHEEMA PT Oct 02, 2021 09:18
[2021-10-02] MEDS ORDERED: ONDA4TAB11 PO (11:31)
[2021-10-02] MEDS ORDERED: MULT-1029 PO (11:31)
[2021-10-02] MEDS ORDERED: MELA3TAB39 PO (11:31)
[2021-10-02] MEDS ORDERED: MICO90PO TOP (11:31)
[2021-10-02] MEDS ORDERED: CYAN500T8 PO (11:31)
[2021-10-02] MEDS ORDERED: CITA20TA9 PO (11:31)
[2021-10-02] MEDS ORDERED: LORA10TA7 PO (11:31)
[2021-10-02] MEDS ORDERED: ENOX40DI8 SC (11:31)
[2021-10-02] MEDS ORDERED: ALPR.25T PO (11:31)
[2021-10-02] MEDS ORDERED: OXC5T PO (11:31)
[2021-10-02] MEDS ORDERED: ATOR80TA76 PO (11:31)
[2021-10-02] MEDS ORDERED: CALC600T91 PO (11:31)
[2021-10-02 11:33] VITALS: BP 141/76
--- NOTE | 2021-10-02 11:33 | Discharge Inst-Skilled Nursing ---
Discharge Inst-Skilled NF Reconcile Patient Problems Problems Reviewed?: Yes Chief Complaint Chief complaint: Symptomatic anemia History of present illness: This is a 76-year-old white female known to me from prior CVA managed in inpatient rehab who presents to the ER with constipation and weakness found to have severe anemia requiring 1 unit of blood yesterday. Colon mass was noted on CT scan. Patient will undergo scopes. Patient Instructions Patient Problems: Debility CVA Colon cancer Goal: [place] Consult/Follow Up/Orders Skilled NF Admit to: Certification (SNF) I certify that SNF services are required to be given on an inpatient basis because of the above named patient's need for longterm care on a continu ing basis for the conditions(s) for which he/she was receiving inpatient hospital services prior to his/her transfer to the SNF. [facility] Facility Order: Nursing Services, [place] Grader-Evaluate & Treat, Physical Therapy-Evaluate & Treat, Speech Language-Evaluate & Treat Oxygen Delivery Method: Room Air Discharge Diet: No Restrictions Resuscitation Status: Full Code New & Resume Previous Orders New Medications: ALPRAZolam (Xanax Tablet) 0.25 Mg Tab 0.25 MG PO Q6HR PRN for ANXIETY, #30 TAB Enoxaparin Sodium (Enoxaparin Sodium) 40 Mg/0.4 Ml Syringe 40 MG SC Q24H, #21 SYRINGE Miconazole Nitrate (Lotrimin AF) 90 Gm Powder 0 GM TOP BID, #1 EA Ondansetron (Ondansetron Odt) 4 Mg Tab.rapdis 4 MG PO Q6H PRN for NAUSEA/VOMITING-1ST LINE, #30 TAB Oxycodone Hcl (Oxyir Tablet) 5 Mg Tab 5 MG PO Q4HR PRN for PAIN-SEE DOSE INSTRUCTIONS, #30 TAB Continued Medications: Atorvastatin Calcium (Atorvastatin Calcium) 80 Mg Tablet 80 MG PO HS, #30 TAB (This prescription has been renewed) Calcium Carbonate (Calcium) 600 Mg Tablet 600 MG PO DAILY, #30 TAB (This prescription has been renewed) Citalopram Hydrobromide (Citalopram HBr) 20 Mg Tablet 20 MG PO DAILY, #30 TAB (This prescription has been renewed) Cyanocobalamin (Vitamin B-12) (Vitamin B-12) 500 Mcg Tablet 500 MCG PO DAILY, #30 TAB (This prescription has been renewed) Loratadine (Loratadine) 10 Mg Tablet 10 MG PO DAILY PRN for ALLERGY SYMPTOMS, #30 TAB (This prescription has been renewed) Melatonin (Melatonin) 3 Mg Tablet 6 MG PO HS PRN for SLEEP, #30 TAB (This prescription has been renewed) TAKES 2 (3MG) TABS Multivit-Min/FA/Lycopene/Lut (Centrum Silver Tablet) 1 Each Tablet 1 EACH PO DAILY, #30 TAB (This prescription has been renewed) Discontinued Medications: Bisacodyl (Bisacodyl) 5 Mg Tablet.dr 5 MG PO DAILY PRN for CONSTIPATION-4TH LINE, TAB Docusate Sodium (Docusate Sodium) 100 Mg Capsule 100 MG PO DAILY, CAP Magnesium Hydroxide (Milk of Magnesia) 400 Mg/5 Ml Oral.susp 30 ML PO DAILY PRN for CONSTIPATION-7TH LINE, ML Le Feng Oct 02, 2021 11:31 LE FENG DO Oct 02, 2021 11:33
--- NOTE | 2021-10-02 11:33 | Discharge Summary ---
Discharge Summary Hospital Course Hospital Course Date of Admission: Sep 16, 2021 at 14:18 Admission Diagnosis : Family Physician/Provider: MelissaLocal Physician Date of Discharge: 10/02/21 Discharge Diagnosis: [ ] Hospital Course: [ ] Labs and Pending Lab Test: Laboratory Tests 10/02/21 05:57: White Blood Count 6.2, Red Blood Count 3.18L, Hemoglobin 7.7L, Hematocrit 25L, Mean Corpuscular Volume 78L, Mean Corpuscular Hemoglobin 24L, Mean Corpuscular Hemoglobin Concent 31L, Red Cell Distribution Width 19.0H, Platelet Count 459H, Mean Platelet Volume 9.7, Immature Granulocyte % (Auto) 1, Neutrophils (%) (Auto) 67, Lymphocytes (%) (Auto) 20, Monocytes (%) (Auto) 9, Eosinophils (%) (Auto) 3, Basophils (%) (Auto) 1, Neutrophils # (Auto) 4.1, Lymphocytes # (Auto) 1.2, Monocytes # (Auto) 0.5, Eosinophils # (Auto) 0.2, Basophils # (Auto) 0.1, Immature Granulocyte # (Auto) 0.0, Sodium Level 140, Potassium Level 3.5L, Chloride Level 104, Carbon Dioxide Level 27, Anion Gap 9, Blood Urea Nitrogen 5L , Creatinine 0.55L, Estimat Glomerular Filtration Rate 95, BUN/Creatinine Ratio 9, Glucose Level 95, Calcium Level 8.1L, Corrected Calcium 9.5, Total Bilirubin 0.3, Aspartate Amino Transf (AST/SGOT) 16, Alanine Aminotransferase (ALT/SGPT) 6, Alkaline Phosphatase 45, Total Protein 4.6L, Albumin 2.3L 10/02/21 06:00: Magnesium Level 1.9 10/02/21 11:24: SARS-CoV-2 RNA (RT-PCR) [Pending] Microbiology 09/22/21 MRSA Screen - Final, Complete MRSA not isolated Home Meds Active Lotrimin AF (Miconazole Nitrate) 90 Gm Powder 0 Gm TOP BID Ondansetron Odt (Ondansetron) 4 Mg Tab.rapdis 4 Mg PO Q6H PRN Xanax Tablet (Alprazolam) 0.25 Mg Tab 0.25 Mg PO Q6HR PRN Oxyir Tablet (Oxycodone HCl) 5 Mg Tab 5 Mg PO Q4HR PRN Enoxaparin Sodium 40 Mg/0.4 Ml Syringe 40 Mg SC Q24H Vitamin B-12 (Cyanocobalamin (Vitamin B-12)) 500 Mcg Tablet 500 Mcg PO DAILY Melatonin 3 Mg Tablet 6 Mg PO HS PRN TAKES 2 (3MG) TABS Loratadine 10 Mg Tablet 10 Mg PO DAILY PRN Citalopram HBr (Citalopram Hydrobromide) 20 Mg Tablet 20 Mg PO DAILY Centrum Silver Tablet (Multivit-Min/FA/Lycopene/Lut) 1 Each Tablet 1 Each PO DAILY Calcium (Calcium Carbonate) 600 Mg Tablet 600 Mg PO DAILY Atorvastatin Calcium 80 Mg Tablet 80 Mg PO HS Reported Milk of Magnesia (Magnesium Hydroxide) 400 Mg/5 Ml Oral.susp 30 Ml PO DAILY PRN Docusate Sodium 100 Mg Capsule 100 Mg PO DAILY Bisacodyl 5 Mg Tablet.dr 5 Mg PO DAILY PRN Discharge Instructions Discharge Diet: No Restrictions Discharge Physical Examination Vital Signs Vital Signs Date Time Temp Pulse Resp B/P (MAP) Pulse Ox O2 Delivery O2 Flow Rate FiO2 10/02/21 08:17 35.9 71 18 138/73 (94) 94 Room Air 09/28/21 21:00 09/27/21 10:19 2 Allergies: Coded Allergies: Sulfa (Sulfonamide Antibiotics) (Unverified Allergy, Unknown, 12/02/20) Discharge Summary Date of Admission Sep 16, 2021 at 14:18 Date of Discharge Discharge Date: Oct 02, 2021 Admission Diagnosis Assessment: Symptomatic anemia hemoglobin 6.8 status post 1 unit of blood Colon mass Recent constipation History of CVA with left-sided hemiparesis CAD Former smoker Plan: Cardiology eval Monitor hemoglobin Discharge Diagnosis Assessment: Symptomatic anemia hemoglobin 6.8 status post transfusion of 2 units total since admit Colon mass Recent constipation History of CVA with left-sided hemiparesis CAD Former smoker Plan: Cardiology eval Monitor hemoglobin 09/18/2021: Monitor hemoglobin 09/19/2021: Monitor hemoglobin 09/20/2021: Monitor hemoglobin Resection Tuesday09/26/21: Monitor closely 09/28/2019 Needs residential at discharge Prognosis poor 09/28/2021: Needs residential at discharge 09/29/2021: Advance diet Supportive care 09/30/2021: Increase Xanax 10/01/2021: Supportive care longterm placement Clinical Quality Measures DVT/VTE Risk/Contraindication: Other: MOHIT Kincaid DO Oct 02, 2021 11:33
--- NOTE | 2021-10-02 11:41 | Occ Therapy Progress Note ---
Therapy Progress Note Pt in bed, declines OT services on this date. OT provided education on purpose and benefit of OT, pt verbalized understanding but continued to refuse, requesting OT to return a different day. OT will attempt tx again next available date. 1, refusal [id number] JOHN ROSAS OT Oct 02, 2021 11:41
--- NOTE | 2021-10-02 11:55 | Progress Note ---
Subjective Date Seen by a Provider: Oct 02, 2021 Time Seen by a Provider: 11:30 Subjective/Events-last exam doing well. tolerating diet and having BM's. pain controlled. Objective Exam Vital Signs Date Time Temp Pulse Resp B/P (MAP) Pulse Ox O2 Delivery O2 Flow Rate FiO2 10/02/21 11:33 36.5 76 18 141/76 (97) 96 Room Air 10/02/21 08:17 35.9 71 18 138/73 (94) 94 Room Air 10/02/21 08:00 Room Air 10/02/21 03:58 36.4 69 16 144/74 (97) 96 Room Air 10/02/21 00:00 36.8 69 17 134/69 (90) 95 Room Air 10/01/21 21:15 Room Air 10/01/21 19:38 37.0 78 19 147/91 (109) 96 Room Air 10/01/21 15:49 36.1 73 18 132/77 (95) 96 Room Air I & O 10/02/21 07:00 Intake Total 1580 ml Output Total 150 ml Balance 1430 ml Capillary Refill : Less Than 3 Seconds General Appearance: No Apparent Distress HEENT: PERRL/EOMI Neck: Full Range of Motion Respiratory: Chest Non Tender, Lungs Clear, Normal Breath Sounds Cardiovascular: Regular Rate, Rhythm Gastrointestinal: normal bowel sounds, soft, tenderness Extremity: Normal Capillary Refill Neurologic/Psychiatric: Alert, Oriented x3 Skin: Normal Color Lymphatic: No Adenopathy Results Lab Laboratory Tests 10/02/21 05:57: White Blood Count 6.2, Red Blood Count 3.18L, Hemoglobin 7.7L, Hematocrit 25L, Mean Corpuscular Volume 78L, Mean Corpuscular Hemoglobin 24L, Mean Corpuscular Hemoglobin Concent 31L, Red Cell Distribution Width 19.0H, Platelet Count 459H, Mean Platelet Volume 9.7, Immature Granulocyte % (Auto) 1, Neutrophils (%) (Auto) 67, Lymphocytes (%) (Auto) 20, Monocytes (%) (Auto) 9, Eosinophils (%) (Auto) 3, Basophils (%) (Auto) 1, Neutrophils # (Auto) 4.1, Lymphocytes # (Auto) 1.2, Monocytes # (Auto) 0.5, Eosinophils # (Auto) 0.2, Basophils # (Auto) 0.1, Immature Granulocyte # (Auto) 0.0, Sodium Level 140, Potassium Level 3.5L, Chloride Level 104, Carbon Dioxide Level 27, Anion Gap 9, Blood Urea Nitrogen 5L , Creatinine 0.55L, Estimat Glomerular Filtration Rate 95, BUN/Creatinine Ratio 9, Glucose Level 95, Calcium Level 8.1L, Corrected Calcium 9.5, Total Bilirubin 0.3, Aspartate Amino Transf (AST/SGOT) 16, Alanine Aminotransferase (ALT/SGPT) 6, Alkaline Phosphatase 45, Total Protein 4.6L, Albumin 2.3L 10/02/21 06:00: Magnesium Level 1.9 10/02/21 11:24: Microbiology 09/22/21 MRSA Screen - Final, Complete MRSA not isolated Assessment/Plan Assessment/Plan Assess & Plan/Chief Complaint anemia with dark stools and large colonic/small bowel mass s/p en-bloc resection sigmoid colon, small bowel and appendix. reflux eosphagitis with stricture s/p bs and dilatation. descending colonic mass with extensive diverticulosis. having BM's. will advance diet OOB to chair. cont DVT prophylaxis. 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 ca at tip of appendix and no invasion rt colon so no other surgery required. cont PT/OT. patient will be going to [facility] in [place] for next destination. from surgical perspective can be transferred any time. Clinical Quality Measures DVT/VTE Risk/Contraindication: Other: CARSON Hurtado MD Oct 02, 2021 11:55
[2021-10-02 16:00] VITALS: BP 127/74
--- NOTE | 2021-10-02 16:09 | Cardiology Progress Note ---
Subjective Date Seen by Provider: Oct 02, 2021 Time Seen by Provider: 16:09 Subjective/Events-last exam Patient was seen at bedside sitting comfortably, no new complaint. Objective-Cardiology Exam Last Set of Vital Signs Vital Signs 09/27/21 09/28/21 10/02/21 10:19 15:40 16:00 Temp 36.9 Pulse 66 Resp 20 B/P (MAP) 127/74 (91) Pulse Ox 94 O2 Delivery Room Air O2 Flow Rate 2.00 FiO2 2 I&O Intake and Output 10/02/21 00:00 Intake Total 1130 ml Output Total 170 ml Balance 960 ml Intake Oral 1030 ml IV Total 100 ml Output Urine Total 100 ml Drainage Total 70 ml # Voids 6 # Bowel Movements 1 General: Alert, Oriented X3, Cooperative, No Acute Distress HEENT: Atraumatic, PERRLA Neck: Supple, No JVD, No Thyromegaly Lungs: Clear to Auscultation, Normal Air Movement Heart: Regular Rate, Normal S1, Normal S2, No Murmurs Abdomen: Normal Bowel Sounds Extremities: No Cyanosis, No Edema Skin: No Rashes, No Breakdown, No Significant Lesion Neuro: Normal Speech Psych/Mental Status: Mental Status NL, Mood NL Results Lab Laboratory Tests 10/02/21 05:57 A/P-Cardiology Admission Diagnosis Colon mass Anemia Cryptogenic CVA HTN Assessment/Plan 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 Managed by Dr. Rivero Status post sigmoid colon resection, appendectomy and small bowel resection. Managed by Dr. Rivero Improving slowly. No new complaint. Gastritis, H. pylori positive, managed by surgical team Anxiety, improved, managed by medical team Anemia, GI bleed secondary to colon mass. Status post blood transfusion, hemoglobin 7.5 on October 01, 2021. Continue to monitor. 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 No arrhythmia has been detected so far. Hypertension, controlled, continue to monitor. Hyperlipidemia, continue to monitor. History of breast cancer. In remission History of Tobaccoism. DOROTHY RIVERA MD Oct 02, 2021 16:09
[2021-10-02 19:35] VITALS: BP 134/75
[2021-10-02] MEDS: ENOXAPARIN 40 MG/0.4 ML (LOVENOX) SYR SC SCH (20:27)
[2021-10-03] VITALS: BP 132/64
[2021-10-03] MEDS: MEROPENEM 500 MG/NS 100 ML IVPB IV SCH ×4 (00:10→08:53)
[2021-10-03 06:24] LABS: CALCIUM 7.9 MG/DL (8.5-10.1); CREATININE SERUM 0.54 MG/DL (0.60-1.30); MAGNESIUM 1.8 MG/DL (1.6-2.4); POTASSIUM 3.8 MMOL/L (3.6-5.0)
[2021-10-03] MEDS: POTASSIUM CL 10MEQ/50ML IVPB 50 ML IV SCH (06:32)
[2021-10-03] MEDS: MAGNESIUM 1 GM/100 ML IVPB 100 ML IV SCH (06:32)
[2021-10-03] MEDS: KCL 20 MEQ TAB (K-DUR) PO SCH (06:32)
[2021-10-03] MEDS: MULTIVIT W/MINERALS TAB (THERAGRAN M) PO SCH (06:33)
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
[2021-10-03 08:03] VITALS: BP 136/72
[2021-10-03] MEDS: CYANOCOBALAMIN 1,000 MCG (VITAMIN B-12) TABLET PO SCH ×2 (08:53→09:00)
[2021-10-03] MEDS: CALCIUM CARBONATE 600 MG (CALCARB) TAB PO SCH ×2 (08:53→09:00)
[2021-10-03] MEDS: MICONAZOLE 2% POWDER (DESENEX AF) 90 GM TOP SCH ×2 (08:54→20:47)
[2021-10-03] MEDS: BISACODYL 5 MG (DULCOLAX) TABLET PO SCH ×3 (08:54→20:53)
[2021-10-03] MEDS: DOCUSATE SODIUM 100 MG (COLACE) CAP PO SCH (08:54)
--- NOTE | 2021-10-03 10:49 | Physical Therapy Daily Note ---
PT Daily Note-Current Subjective Pt reports she has been having trouble control her bowels this mornings so denies wanting to get to walk but agrees to bed exs. Pt reports no pain this date. Mental Status Patient Orientation: Person, Place, Time Transfers SCALE: Activities may be completed with or without assistive devices. 2-Ojzquzmzcp-dvxmiiq completes the activity by him/herself with no assistance from a helper. 5-Set-up or Clean-up Assistance-helper sets up or cleans up; patient completes activity. [place] assists only prior to or following the activity. 4-Supervision or Touching Assistance-helper provides verbal cues and/or touching/steadying and/or contact guard assistance as patient completes activity. Assistance may be provided throughout the activity or intermittently. 3-Partial/Moderate Assistance-helper does LESS THAN HALF the effort. [place] lifts, holds or supports trunk or limbs, but provides less than half the effort. 2-Substantial/Maximal Assistance-helper does MORE THAN HALF the effort. [place] lifts or holds trunk or limbs and provides more than half the effort. 3-[place]-aitorq does ALL the effort. Patient does none of the effort to complete the activity. Or, the assistance of 2 or more helpers is required for the patient to complete the activity. If activity was not attempted, code reason: 7-Patient Refused. 9-Not Applicable-not attempted and the patient did not perform the activity before the current illness, exacerbation or injury. 10-Not Attempted due to Environmental Limitations-(lack of equipment, weather restraints, etc.). 88-Not Attempted due to Medical Conditions or Safety Concerns. Roll Left & Right (QC): 5 Sit to Lying (QC): 4 Gait Training Does the Patient Walk?: No and Walking Goal IS indicated Exercises Supine Ex: Bridging, Ankle pumps, Quad Set, Glut sets, Heel Slides, Short Arc Quads, Straight leg raise, Hip abd/add Supine Reps: 20 Treatments Pt agrees to PT and able to perform all bed exs. Pt in bed upon departure w/ all needs met and call light nearby. Assessment Current Status: Good Progress Pt denies amb this date d/t not being able to control bowels but has already been up 3 times this morning for BR. Requires cues for correct execution of bed exs PT Correction Goals Group Care Worker Goals PT Correction Goals Time Frame: Oct 03, 2021 Roll Left & Right (QC): 3 Sit to Lying (QC): 3 Lying-Sitting on Side/Bed(QC): 3 Sit to Stand (QC): 3 Chair/Dfb-pe-Klvtk Xfer(QC): 3 Toilet Transfer (QC): 3 Does the Patient Walk: No and Walking Goal NOT indicated PT Plan Problem List Problem List: Activity Tolerance, Functional Strength Treatment/Plan Treatment Plan: Continue Plan of Care Treatment Plan: Bed Mobility, Education, Functional Activity Helene, Functional Strength, Gait, Safety, Therapeutic Exercise, Transfers Treatment Duration: Oct 03, 2021 Frequency: 6 times per week Estimated Hrs Per Day: .25 hour per day Safety Risks/Education Patient Education: Correct Positioning Teaching Recipient: Patient Teaching Methods: Discussion Response to Teaching: Return Demonstration Time/GCodes Time In: 931 Time Out: 946 Total Billed Treatment Time: 15 Total Billed Treatment 1, Ex SUGEY STRATTON PTA Oct 03, 2021 10:49
[2021-10-03] MEDS: LACTOBACILLUS ACIDOPHILUS (PROBIOTIC) CAPSULE PO SCH ×2 (12:45→16:59)
[2021-10-03] MEDS: CHOLESTYRAMINE 4 GM (QUESTRAN LITE, PREVALITE) PKT PO SCH ×2 (12:46→16:59)
--- NOTE | 2021-10-03 13:44 | Cardiology Progress Note ---
Subjective Date Seen by Provider: Oct 03, 2021 Time Seen by Provider: 13:43 Subjective/Events-last exam Patient was seen at bedside sitting comfortably, complaining of diarrhea Review of Systems General: No Chills, No Night Sweats; Fatigue, Malaise; No Appetite, No Other HEENT: No Head Aches, No Visual Changes, No Eye Pain, No Ear Pain, No Dysphasia, No Sinus Congestion, No Post Nasal Drip, No Sore Throat, No Other Pulmonary: No Dyspnea, No Cough, No Pleuritic Chest Pain, No Other Cardiovascular: No: Chest Pain, Palpitations, Orthopnea, Paroxysmal Noc. Dyspnea, Edema, Lt Headedness, Other Objective-Cardiology Exam Last Set of Vital Signs Vital Signs 09/27/21 09/28/21 10/03/21 10:19 15:40 08:03 Temp 36.5 Pulse 68 Resp 16 B/P (MAP) 136/72 (93) Pulse Ox 95 O2 Delivery Room Air O2 Flow Rate 2.00 FiO2 2 I&O Intake and Output 10/03/21 00:00 Intake Total 1490 ml Output Total 80 ml Balance 1410 ml Intake Oral 1490 ml Drainage Total 80 ml # Voids 6 # Bowel Movements 4 General: Alert, Oriented X3, Cooperative, No Acute Distress HEENT: Atraumatic, PERRLA Neck: Supple, No JVD, No Thyromegaly Lungs: Clear to Auscultation, Normal Air Movement Heart: Regular Rate, Normal S1, Normal S2, No Murmurs Abdomen: Normal Bowel Sounds Extremities: No Cyanosis, No Edema Skin: No Rashes, No Breakdown, No Significant Lesion Neuro: Normal Speech Psych/Mental Status: Mental Status NL, Mood NL Results Lab Laboratory Tests 10/03/21 05:40 A/P-Cardiology Admission Diagnosis Colon mass Anemia Cryptogenic CVA HTN Assessment/Plan 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 Managed by Dr. Rivero Status post sigmoid colon resection, appendectomy and small bowel resection. Managed by Dr. Rivero Improving slowly. No new complaint. Gastritis, H. pylori positive, managed by surgical team Anxiety, improved, managed by medical team Anemia, GI bleed secondary to colon mass. Status post blood transfusion, hemoglobin 7.5 on October 01, 2021. Continue to monitor. 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 No arrhythmia has been detected so far. Hypertension, controlled, continue to monitor. Hyperlipidemia, continue to monitor. History of breast cancer. In remission History of Tobaccoism. DOROTHY RIVERA MD Oct 03, 2021 13:44
[2021-10-03 15:41] VITALS: BP 153/74
[2021-10-03] MEDS: ENOXAPARIN 40 MG/0.4 ML (LOVENOX) SYR SC SCH (20:47)
[2021-10-04 00:40] VITALS: BP 135/63
--- NOTE | 2021-10-04 06:24 | Progress Note - Hospitalist ---
Subjective HPI/CC On Admission Date Seen by Provider: Oct 04, 2021 Time Seen by Provider: 12:00 Chief complaint: Symptomatic anemia History of present illness: This is a 76-year-old white female known to me from prior CVA managed in inpatient rehab who presents to the ER with constipation and weakness found to have severe anemia requiring 1 unit of blood yesterday. Colon mass was noted on CT scan. Patient will undergo scopes. Subjective/Events-last exam Patient doing really well Sitting up in chair No pain is reported Much improved diarrhea Questran and Lactinex maintained Review of Systems General: Fatigue, Malaise Objective Exam Vital Signs Vital Signs Date Time Temp Pulse Resp B/P (MAP) Pulse Ox O2 Delivery O2 Flow Rate FiO2 10/05/21 00:34 36.4 91 16 165/89 (114) 94 Room Air Capillary Refill : Less Than 3 Seconds General Appearance: No Apparent Distress, WD/WN, Chronically ill, Thin Respiratory: Lungs Clear, Normal Breath Sounds Cardiovascular: Regular Rate, Rhythm Neurologic/Psychiatric: Alert, Oriented x3 Results/Procedures Lab Laboratory Tests 10/05/21 05:15 Patient resulted labs reviewed. Assessment/Plan Assessment and Plan Assess & Plan/Chief Complaint Assessment: Symptomatic anemia hemoglobin 6.8 status post transfusion of 2 units total since admit Colon mass Recent constipation History of CVA with left-sided hemiparesis CAD Former smoker Personality disorder? Plan: Cardiology eval Monitor hemoglobin 09/18/2021: Monitor hemoglobin 09/19/2021: Monitor hemoglobin 09/20/2021: Monitor hemoglobin Resection Tuesday09/26/21: Monitor closely 09/28/2019 Needs group home at discharge Prognosis poor 09/28/2021: Needs group home at discharge 09/29/2021: Advance diet Supportive care 09/30/2021: Increase Xanax 10/01/2021: Supportive care correction placement 10/02/2021: Supportive care Hold discharge till Tuesday10/03/2021: Supportive care Lactinex Questran 10/04/2021: Supportive care correction Critical Care Critically Ill Patient Clinical Quality Measures DVT/VTE Risk/Contraindication: Other: MOHIT Kincaid DO Oct 04, 2021 06:24
[2021-10-04 06:25] LABS: POTASSIUM 3.7 MMOL/L (3.6-5.0)
[2021-10-04 06:26] LABS: CALCIUM 8.5 MG/DL (8.5-10.1)
[2021-10-04 06:31] LABS: CREATININE SERUM 0.57 MG/DL (0.60-1.30)
[2021-10-04 06:33] LABS: MAGNESIUM 1.8 MG/DL (1.6-2.4)
[2021-10-04] MEDS: POTASSIUM CL 10MEQ/50ML IVPB 50 ML IV SCH (06:49)
[2021-10-04] MEDS: MAGNESIUM 1 GM/100 ML IVPB 100 ML IV SCH (06:49)
[2021-10-04] MEDS: KCL 20 MEQ TAB (K-DUR) PO SCH (06:50)
[2021-10-04] MEDS: MULTIVIT W/MINERALS TAB (THERAGRAN M) PO SCH (06:50)
[2021-10-04 07:57] VITALS: BP 145/73
[2021-10-04] MEDS: CYANOCOBALAMIN 1,000 MCG (VITAMIN B-12) TABLET PO SCH (08:37)
[2021-10-04] MEDS: CALCIUM CARBONATE 600 MG (CALCARB) TAB PO SCH (08:37)
[2021-10-04] MEDS: LACTOBACILLUS ACIDOPHILUS (PROBIOTIC) CAPSULE PO SCH ×3 (08:37→17:38)
[2021-10-04] MEDS: BISACODYL 5 MG (DULCOLAX) TABLET PO SCH ×2 (08:38→20:50)
[2021-10-04] MEDS: DOCUSATE SODIUM 100 MG (COLACE) CAP PO SCH (08:38)
[2021-10-04] MEDS: MICONAZOLE 2% POWDER (DESENEX AF) 90 GM TOP SCH ×2 (08:38→20:50)
[2021-10-04] MEDS: CHOLESTYRAMINE 4 GM (QUESTRAN LITE, PREVALITE) PKT PO SCH ×2 (08:50→17:38)
--- NOTE | 2021-10-04 10:02 | Cardiology Progress Note ---
Subjective Date Seen by Provider: Oct 04, 2021 Time Seen by Provider: 10:02 Subjective/Events-last exam Patient is laying down in bed, reporting improvement, feeling better. No new complaint Review of Systems General: No Chills, No Night Sweats, No Fatigue, No Malaise, No Appetite, No Other HEENT: No Head Aches, No Visual Changes, No Eye Pain, No Ear Pain, No Dysph jett, No Sinus Congestion, No Post Nasal Drip, No Sore Throat, No Other Pulmonary: No Dyspnea, No Cough, No Pleuritic Chest Pain, No Other Cardiovascular: No: Chest Pain, Palpitations, Orthopnea, Paroxysmal Noc. Dyspnea, Edema, Lt Headedness, Other Objective-Cardiology Exam Last Set of Vital Signs Vital Signs 09/28/21 10/04/21 15:40 07:57 Temp 37.0 Pulse 82 Resp 18 B/P (MAP) 145/73 (97) Pulse Ox 93 O2 Delivery Room Air O2 Flow Rate 2.00 I&O Intake and Output 10/04/21 00:00 Intake Total 1180 ml Balance 1180 ml Intake Oral 1180 ml # Voids 5 # Bowel Movements 3 General: Alert, Oriented X3, Cooperative, No Acute Distress HEENT: Atraumatic, PERRLA Neck: Supple, No JVD, No Thyromegaly Lungs: Clear to Auscultation, Normal Air Movement Heart: Regular Rate, Normal S1, Normal S2, No Murmurs Abdomen: Normal Bowel Sounds Extremities: No Cyanosis, No Edema Skin: No Rashes, No Breakdown, No Significant Lesion Neuro: Normal Speech Psych/Mental Status: Mental Status NL, Mood NL Results Lab Laboratory Tests 10/04/21 06:02 A/P-Cardiology Admission Diagnosis Colon mass Anemia Cryptogenic CVA HTN Assessment/Plan 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 Managed by Dr. Rivero Status post sigmoid colon resection, appendectomy and small bowel resection. Managed by Dr. Rivero Improving slowly. No new complaint. Gastritis, H. pylori positive, managed by surgical team Anxiety, improved, managed by medical team Anemia, GI bleed secondary to colon mass. Status post blood transfusion, hemoglobin 7.5 on October 01, 2021. Continue to monitor. 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 No arrhythmia has been detected so far. Hypertension, controlled, continue to monitor. Hyperlipidemia, continue to monitor. History of breast cancer. In remission History of Tobaccoism. DOROTHY RIVERA MD Oct 04, 2021 10:02
[2021-10-04 16:00] VITALS: BP 153/83
[2021-10-04] MEDS: ENOXAPARIN 40 MG/0.4 ML (LOVENOX) SYR SC SCH (20:50)
[2021-10-05 00:34] VITALS: BP 165/89
[2021-10-05] MEDS: MULTIVIT W/MINERALS TAB (THERAGRAN M) PO SCH (05:32)
[2021-10-05 05:34] LABS: POTASSIUM 3.7 MMOL/L (3.6-5.0)
[2021-10-05 05:41] LABS: MAGNESIUM 1.7 MG/DL (1.6-2.4)
[2021-10-05] MEDS: POTASSIUM CL 10MEQ/50ML IVPB 50 ML IV SCH (05:52)
[2021-10-05] MEDS: KCL 20 MEQ TAB (K-DUR) PO SCH (05:52)
[2021-10-05] MEDS: MAGNESIUM 1 GM/100 ML IVPB 100 ML IV SCH ×3 (05:53→07:18)
[2021-10-05 08:13] VITALS: BP 125/69
--- NOTE | 2021-10-05 08:44 | Cardiology Progress Note ---
Subjective Date Seen by Provider: Oct 05, 2021 Time Seen by Provider: 08:41 Subjective/Events-last exam Patient resting in bed comfortably upon entering the room. Is being transferred to [facility] today. Patient is aware of this and seems agreeable to it. Patient states she feels she is doing much better with no major complaints. Review of Systems General: No Chills, No Fatigue HEENT: No Head Aches, No Dysphasia Pulmonary: No Dyspnea, No Cough Cardiovascular: No: Chest Pain, Palpitations, Lt Headedness Gastrointestinal: No: Nausea, Vomiting, Abdominal Pain, Diarrhea Objective-Cardiology Exam Last Set of Vital Signs Vital Signs 10/05/21 08:13 Temp 37.0 Pulse 77 Resp 20 B/P (MAP) 125/69 (87) Pulse Ox 92 O2 Delivery Room Air I&O Intake and Output 10/05/21 00:00 Intake Total 810 ml Output Total 400 ml Balance 410 ml Intake Oral 810 ml Output Urine Total 400 ml # Voids 3 # Bowel Movements 1 General: Alert, Oriented X3, Cooperative, No Acute Distress HEENT: Atraumatic, PERRLA Neck: Supple, No JVD Lungs: Clear to Auscultation, Normal Air Movement Heart: Regular Rate, Normal S1, Normal S2, No Murmurs Abdomen: Normal Bowel Sounds Extremities: No Cyanosis, No Edema, Normal Pulses Skin: No Rashes, No Breakdown, No Significant Lesion Neuro: Normal Speech Psych/Mental Status: Mental Status NL, Mood NL Results Lab Laboratory Tests 10/05/21 05:15 A/P-Cardiology Admission Diagnosis Colon mass Anemia Cryptogenic CVA HTN Assessment/Plan 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 Managed by Dr. Rivero Status post sigmoid colon resection, appendectomy and small bowel resection. Managed by Dr. Rivero Improving slowly. No new complaint. Gastritis, H. pylori positive, managed by surgical team Anxiety, improved, managed by medical team Anemia, GI bleed secondary to colon mass. Status post blood transfusion, hemoglobin 7.7 on October 02, 2021. Continue to monitor. 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 No arrhythmia has been detected so far. Hypertension, controlled, continue to monitor. Hyperlipidemia, continue to monitor. History of breast cancer. In remission History of Tobaccoism. Clinical Quality Measures DVT/VTE Risk/Contraindication: Other: gib Supervisory-Addendum Brief Verification & Attestation Participated in pt care: history, MDM, physical Personally performed: exam, history, MDM, supervision of care Care discussed with: Medical Student Procedures: n/a Results interpretation: Verified all documentation Verification and Attestation of Medical Student E/M Service A medical student performed and documented this service in my presence. I reviewed and verified all information documented by the medical student and made modifications to such information, when appropriate. I personally performed the physical exam and medical decision making. Patient was seen at bedside laying down comfortably, feeling better. No new complaint. Denied any chest pain or shortness of breath. No palpitation. Possible transfer to [place]. Dorothy Newby Oct 05, 2021,11:14 KOBILIONEL Oct 05, 2021 08:44 DOROTHY NEWBY MD Oct 05, 2021 11:13
[2021-10-05] MEDS: DOCUSATE SODIUM 100 MG (COLACE) CAP PO SCH (09:09)
[2021-10-05] MEDS: CHOLESTYRAMINE 4 GM (QUESTRAN LITE, PREVALITE) PKT PO SCH ×2 (09:09→18:10)
[2021-10-05] MEDS: CALCIUM CARBONATE 600 MG (CALCARB) TAB PO SCH (09:09)
[2021-10-05] MEDS: BISACODYL 5 MG (DULCOLAX) TABLET PO SCH (09:09)
[2021-10-05] MEDS: LACTOBACILLUS ACIDOPHILUS (PROBIOTIC) CAPSULE PO SCH ×3 (09:09→18:10)
[2021-10-05] MEDS: CYANOCOBALAMIN 1,000 MCG (VITAMIN B-12) TABLET PO SCH (09:09)
[2021-10-05] MEDS: MICONAZOLE 2% POWDER (DESENEX AF) 90 GM TOP SCH (09:25)
--- NOTE | 2021-10-05 11:16 | Occupational Ther Daily Note ---
OT Current Status-Daily Note Subjective Pt alert, lying in bed. Pt agrees to therapy. No c/o pain. Pt states that she is leaving the hospital today. Mental Status/Objective Patient Orientation: Person, Place, Time, Situation Attachments: IV ADL-Treatment Therapy Code Descriptions/Definitions Functional [place] Measure: 0=Not Assessed/NA 4=Minimal Assistance 1=Total Assistance 5=Supervision or Setup 2=Maximal Assistance 6=Modified [place] 3=Moderate Assistance 7=Complete IndependenceSCALE: Activities may be completed with or without assistive devices. 1-Gcqgosjcdk-pysrbrv completes the activity by him/herself with no assistance from a helper. 5-Set-up or Clean-up Assistance-helper sets up or cleans up; patient completes activity. [place] assists only prior to or following the activity. 4-Supervision or Touching Assistance-helper provides verbal cues and/or touching/steadying and/or contact guard assistance as patient completes activity. Assistance may be provided throughout the activity or intermittently. 3-Partial/Moderate Assistance-helper does LESS THAN HALF the effort. [place] lifts, holds or supports trunk or limbs, but provides less than half the effort. 2-Substantial/Maximal Assistance-helper does MORE THAN HALF the effort. [place] lifts or holds trunk or limbs and provides more than half the effort. 2-Wvzgaqcsc-dyhtgb does ALL the effort. Patient does none of the effort to complete the activity. Or, the assistance of 2 or more helpers is required for the patient to complete the activity. If activity was not attempted, code reason: 7-Patient Refused. 9-Not Applicable-not attempted and the patient did not perform the activity before the current illness, exacerbation or injury. 10-Not Attempted due to Environmental Limitations-(lack of equipment, weather restraints, etc.). 88-Not Attempted due to Medical Conditions or Safety Concerns. Other Treatment Pt's athetoid movements have diminished when pt is using B UE for functional tasks. Pt is independent with bed mobility. Pt is able to complete B UE functional tasks independently. SBA for SPT transfers. Independent for eating. After therapy, pt lying in bed with call light/phone in reach. All needs met in room. OT Test Engineer Goals Intermediate Goals Time Frame: Oct 16, 2021 Eating (QC): 4 Oral Hygiene (QC): 4 Toileting Hygiene (QC): 3 Shower/Bathe Self (QC): 3 Upper Body Dressing (QC): 3 Lower Body Dressing (QC): 3 On/Off Footwear (QC): 3 1=Demonstrate adherence to instructed precautions during ADL tasks. 2=Patient will verbalize/demonstrate understanding of assistive devices/modifications for ADL. 3=Patient will improve strength/tolerance for activity to enable patient to perform ADL's. OT Education/Plan Problem List/Assessment Assessment: Decreased Activ Tolerance, Impaired Coordination Discharge Recommendations Plan/Recommendations: Continue POC Treatment Plan/Plan of Care Patient would benefit from OT for education, treatment and training to promote independence in ADL's, mobility, safety and/or upper extremity function for ADL's. Plan of Care: ADL Retraining, Functional Mobility, Group Exercise/Act as Ind, UE Funct Exercise/Act, W/C Management Training Treatment Duration: Oct 16, 2021 Frequency: 3 times per week (3-5x/week) Estimated Hrs Per Day: .25 hour per day Agreement: Yes Rehab Potential: Guarded Time/GCodes Start Time: 11:00 Stop Time: 11:10 Total Time Billed (hr/min): 10 Billed Treatment Time 1 visit-ADL 1 (10 min) ED SQUIRES Oct 05, 2021 11:16
--- NOTE | 2021-10-05 12:40 | Progress Note ---
Subjective Subjective/Events-last exam Patient doing well ON. No new events and states that she is ready to go to rehab. Review of Systems General: No Chills, No Fatigue, No Malaise Pulmonary: No Dyspnea, No Cough Cardiovascular: No: Chest Pain, Palpitations, Edema Gastrointestinal: No: Nausea, Vomiting, Abdominal Pain Neurological: Weakness, Incoordination; No: Confusion Objective Exam Last Set of Vital Signs Vital Signs Date Time Temp Pulse Resp B/P (MAP) Pulse Ox O2 Delivery O2 Flow Rate FiO2 10/05/21 08:13 37.0 77 20 125/69 (87) 92 Room Air Capillary Refill : Less Than 3 Seconds I&O Intake and Output 10/05/21 00:00 Intake Total 810 ml Output Total 400 ml Balance 410 ml Intake Oral 810 ml Output Urine Total 400 ml # Voids 3 # Bowel Movements 1 General: Alert, Cooperative, No Acute Distress Lungs: Clear to Auscultation, Normal Air Movement Heart: Regular Rate, No Murmurs Abdomen: Normal Bowel Sounds, Soft, No Tenderness, No Masses Extremities: No Edema, No Tenderness/Swelling Neuro: Normal Speech Results/Procedures Lab Laboratory Tests 10/05/21 05:15: Potassium Level 3.7, Magnesium Level 1.7 Microbiology 09/22/21 MRSA Screen - Final, Complete MRSA not isolated Assessment/Plan Assessment/Plan Assessment & Plan 76 yo F admitted for acute anemia, colon cancer See Dr Feng's SNF discharge Patient ready for d/c to SNF today in [place] Clinical Quality Measures DVT/VTE Risk/Contraindication: Other: WILMER Han MD Oct 05, 2021 12:40
[2021-10-05 18:11] VITALS: BP 125/69
== END 2021-10-05 18:50 | DRG 330 ==
LOC: EDUNIT# 11:10 → ER 11:12 → 4TH 14:18 → ICU 09-22 16:15 → CSD 09-24 22:54 → 4TH 09-25 15:10
PROVIDERS: ADMIT Internal Medicine; ATTEND Family Medicine
PROC: 0D738ZZ Dilation of Lower Esophagus, Via Natural or Artificial Opening Endoscopic (ICD-10-PCS; 2021-09-18)
PROC: 0DB38ZX Excision of Lower Esophagus, Via Natural or Artificial Opening Endoscopic, Diagnostic (ICD-10-PCS; 2021-09-18)
PROC: 0DB78ZX Excision of Stomach, Pylorus, Via Natural or Artificial Opening Endoscopic, Diagnostic (ICD-10-PCS; 2021-09-18)
PROC: 0DBM8ZX Excision of Descending Colon, Via Natural or Artificial Opening Endoscopic, Diagnostic (ICD-10-PCS; 2021-09-18)
PROC: 8E0ZXY6 Isolation (ICD-10-PCS; 2021-09-18)
PROC: 0DBN0ZZ Excision of Sigmoid Colon, Open Approach (ICD-10-PCS; 2021-09-22)
PROC: 0DBV0ZZ Excision of Mesentery, Open Approach (ICD-10-PCS; 2021-09-22)
PROC: 0DTJ0ZZ Resection of Appendix, Open Approach (ICD-10-PCS; principal; 2021-09-22 12:24)
PROC: 0DB80ZZ Excision of Small Intestine, Open Approach (ICD-10-PCS; 2021-09-22 12:24)
DX: C18.1 Malignant neoplasm of appendix (principal); C78.4 Secondary malignant neoplasm of small intestine; C78.5 Secondary malignant neoplasm of large intestine and rectum; D62 Acute posthemorrhagic anemia; I69.354 Hemiplegia and hemiparesis following cerebral infarction affecting left non-dominant side; K22.2 Esophageal obstruction; K44.9 Diaphragmatic hernia without obstruction or gangrene; K21.00 Gastro-esophageal reflux disease with esophagitis, without bleeding; Z20.822 Contact with and (suspected) exposure to COVID-19; K29.70 Gastritis, unspecified, without bleeding; K59.00 Constipation, unspecified; K64.1 Second degree hemorrhoids; K57.30 Diverticulosis of large intestine without perforation or abscess without bleeding; F60.9 Personality disorder, unspecified; I10 Essential (primary) hypertension; E78.5 Hyperlipidemia, unspecified; I25.10 Atherosclerotic heart disease of native coronary artery without angina pectoris; M17.0 Bilateral primary osteoarthritis of knee; Z87.891 Personal history of nicotine dependence; Z79.82 Long term (current) use of aspirin; Z88.2 Allergy status to sulfonamides; Z85.3 Personal history of malignant neoplasm of breast; Z82.3 Family history of stroke
CPT/HCPCS: 36415; 71045; 71046; 71260; 74176; 74177; 80048; 80053; 81000; 82274; 82378; 82947; 83690; 83735; 84100; 84132; 85007; 85014; 85018; 85025; 85027; 85610; 85730; 86850; 86900; 86901; 86920; 87081; 87636; 88304; 88305; 88309; 88341; 88342; 93005; 93306; 94760; 96374

== ENCOUNTER → 2022-01-21 | Outpatient (RCR) | payer MEDICARE, MEDICAID ==
[~2022-01-21] MED LIST changes: +ALPR.25T PO; +BISA5TAB8 PO; +CITA20TA9 PO; +DOCU100C37 PO; +MAGN400O7 PO; +MELA3TAB39 PO; +MICO90PO TOP; +MULT-1029 PO; +ONDA4TAB11 PO; +OXC5T PO
== END | disposition home or self-care (01) ==
PROVIDERS: ATTEND Internal Medicine
DX: I63.9 Cerebral infarction, unspecified (principal)

== ENCOUNTER → 2022-02-04 | Outpatient (CLI) | payer MEDICARE, MEDICAID ==
--- NOTE | 2022-02-04 12:01 | Diagnostic Imaging Report ---
Indication: Right breast carcinoma status post lumpectomy. Patient has a new area of FDG avidity at the lumpectomy site in the right breast on recent PET scan as well as changing diagnostic mammogram. The study is performed for further evaluation. Correlation is made with the diagnostic mammogram earlier same day. The PET/CT study is not available for direct comparison. Sonographic interrogation of the lumpectomy site in the upper slightly outer right breast was performed. There is a cystic structure located at the lumpectomy site, likely an area of fat necrosis. There does appear to be some shadowing and increased vascularity at the lumpectomy site which could correspond to the areas of spiculation noted mammographically. Possibility of breast neoplasm recurrence cannot be entirely excluded and tissue sampling is recommended. Cystic portion of the lesion measures 1.7 x 0.8 x 1.2 cm. IMPRESSION: BI-RADS Category 4 Post lumpectomy changes in the right breast 10:00 location, 3 to 4 cm from the nipple. There is some shadowing and irregularity at the lumpectomy site. While this could be owing to fibrotic tissue, due to the change mammographically, tissue sampling would be recommended to exclude tumor recurrence. This would be amenable to ultrasound-guided biopsy. ACR BI-RADS Category 4: Suspicious abnormality. Dictated by: Dictated on workstation # [id number]
--- NOTE | 2022-02-04 12:11 | Diagnostic Imaging Report ---
INDICATION: Right breast carcinoma, status post lumpectomy. Patient has an abnormal recent PET CT study showing FDG avidity in the upper right breast at the 12:00 location. CORRELATION is made with prior mammograms 08/25/2018 and 10/14/2017. 2-D and 3-D bilateral diagnostic mammography was performed with CAD. Scattered both breasts are heterogeneously dense, limiting the sensitivity of mammography. There are postlumpectomy changes in the upper aspect of the right breast at mid to posterior depth. There appears to be some new increased density with spiculation at the lumpectomy site. This does represent a change when compared with studies dating back to 2017. There is an area of oil cyst or fat necrosis at the lumpectomy site, as well. There are scattered benign calcifications bilaterally. Cardiac loop recorder overlies the left breast. IMPRESSION: There is some increase in spiculation and density at the lumpectomy site in the upper right breast. The possibility of tumor recurrence cannot be entirely excluded. Further evaluation of this area with ultrasound is recommended and will be performed today. Dictated by: Dictated on workstation # [id number]
== END ==
LOC: RAD 09:45
PROVIDERS: ATTEND Internal Medicine Hematology & Oncology
DX: C50.911 Malignant neoplasm of unspecified site of right female breast (principal); Z90.11 Acquired absence of right breast and nipple
CPT/HCPCS: 76642; 77066; G0279; 77062

== ENCOUNTER 2022-02-11 10:38 | Outpatient (RCR) | payer MEDICARE, MEDICAID | END 2022-02-18 10:28 | disposition home or self-care (01) | PROVIDERS: ATTEND Internal Medicine | DX: I69.322 Dysarthria following cerebral infarction (principal); I69.319 Unspecified symptoms and signs involving cognitive functions following cerebral infarction; I10 Essential (primary) hypertension; E78.5 Hyperlipidemia, unspecified; Z85.038 Personal history of other malignant neoplasm of large intestine ==

== ENCOUNTER → 2022-04-08 | Outpatient (CLI) | payer MEDICARE, MEDICAID ==
[~2022-04-08] MED LIST changes: +LIDOCAINE 1% INJ 10 ML VIAL INJ ONE
--- NOTE | 2022-04-08 10:22 | Diagnostic Imaging Report ---
INDICATION: Right breast carcinoma status post lumpectomy. Patient had new areas of spiculation on mammogram. Patient presents for biopsy. Patient was brought to the sonographic suite, placed on table in the supine position. Ultrasound imaging of the right breast was performed to evaluate appropriate entry site. Right breast was then prepped and draped in usual sterile fashion. Small amount of 1% lidocaine was utilized for local anesthesia. A total of 4 core biopsies were obtained at the lumpectomy site at 10:00 location right breast, 3 to 4 cm from the nipple, utilizing a 14-gauge Achieve needle. A marker clip was then employed. Hemostasis was obtained using manual compression. Patient tolerated the procedure well and was sent for post procedure mammogram in satisfactory condition. IMPRESSION: Successful ultrasound-guided core biopsy of the right breast lumpectomy site. Pathology results are currently pending. Dictated by: Dictated on workstation # [id number]
--- NOTE | 2022-04-08 14:39 | Diagnostic Imaging Report ---
INDICATION: Right breast malignancy status post lumpectomy. Patient is status post ultrasound-guided biopsy at the lumpectomy site. 2-D, CC and ML mammography of the right breast was performed after patient underwent ultrasound-guided right breast biopsy. Images demonstrate a biopsy marker clip along the posterior margin of the lumpectomy site in the upper outer right breast. IMPRESSION: Marker clip placement, status post ultrasound-guided biopsy. Dictated by: Dictated on workstation # [id number]
== END ==
LOC: RAD 08:07
PROVIDERS: ATTEND Internal Medicine Hematology & Oncology
DX: C50.911 Malignant neoplasm of unspecified site of right female breast (principal); Z90.11 Acquired absence of right breast and nipple; Z98.890 Other specified postprocedural states
CPT/HCPCS: 19083; 77065; G0279